=== PATIENT | female | born 1960 | race African-American/Black ===

== ENCOUNTER 2020-12-29 05:11 | Inpatient (IN) | payer OTHER ==
--- OUTSIDE RECORDS SUMMARY | 2020-12-29 05:13 | XMS REPORT | Continuity of Care Document ---
:1960 Author Organization [facility] t Address [address] [place] [address] Care Team Providers Name Role Phone Roberta HUGHES Primary Care Physician Reza HUGHES, Yoshi Attending Clinician Brian Olmos MD Attending Clinician Fidencio PENA Attending Clinician Shelby HUGHES Attending Clinician Doctor Unassigned, Name Attending Clinician Unavailable Only, Test Attending Clinician Unavailable Chidi Hollis Attending Clinician Brian Olmos MD Admitting Clinician Problems Condition Condition Condition Status Onset Resolution Last Treating Co mments Source Name Details Category Date Date Treatment Clinician Date Morbid Problem Active 2019-01-25 Mem[facility] obesity 11:26:00 l (disorder) Morbid Herm tianna obesity (disorder) Active Problem 01/25/2019 [facility] Neck pain Problem Active 2019-01-25 Me moria (finding) 11:26:00 l Neck Bruce pain (finding) Active Problem 01/25/2019 [facility] Paresthesi Problem Active 2019-01-25 M emoria a 11:26:00 l (finding) [place] Paresthesi a (finding) Active Problem 01/25/2019 [facility] Shoulder Problem Active 2019-01-25 Mem oria pain 11:26:00 l (finding) Shoulder Her dotson pain (finding) Active Problem 01/25/2019 [facility] Diabetes Problem Active 2019-01-25 Mem oria mellitus 11:26:00 l (disorder) Diabetes He rmann mellitus (disorder) Active Problem 01/25/2019 [facility] Hypertensi Problem Active 2019-01-25 M emoria ve 11:26:00 l disorder, Bruce systemic Hypertensi arterial ve (disorder) disorder, systemic arterial (disorder) Active Problem 01/25/2019 [facility] Allergies, Adverse Reactions, Alerts Allergy Allergy Status Severity Reaction(s) Onset Inactive Treating Comm ents Source Name Type Date Date Clinician penicill penicill Active Memori a ins ins l [place] NO KNOWN Allergy Active [place] FOOD to da ALLERGIE substanc [facility] Social History Social Habit Start Date Stop Date Quantity Comments Source Sex Assigned At [birth year] [facility] ethodist 00:00:00 00:00:00 Smoking Status Start Date Stop Date Source Former Smoker Tomasa [facility] Social History [facility] Medications Ordered Filled Start Stop Current Ordering Indication Dosage Frequency Signature Comments Components Source Medication Medication Date Date Medication? Clinician (SIG) Name Name Euthyrox Euthyrox No Euthyrox [place] 125 mcg 125 mcg 125 mcg da tablet TAKE tablet TAKE tablet [facility] 1 TABLET BY 1 TABLET BY TAKE 1 al MOUTH ONCE MOUTH ONCE TABLET BY Health DAILY DAILY MOUTH ONCE Outreac DAILY h Program fluticasone fluticasone No fluticason [place] 100 100 e 100 da mcg-salmete mcg-salmete mcg-salmet [facility] rol 50 rol 50 mar 50 al mcg/dose mcg/dose mcg/dose Hea lth blistr blistr blistr Outreac powdr for powdr for powdr for h inhalation inhalation inhalation Program INHALE 1 INHALE 1 INHALE 1 PUFF BY PUFF BY PUFF BY MOUTH TWICE MOUTH TWICE MOUTH DAILY RINSE DAILY RINSE TWICE MOUTH WITH MOUTH WITH DAILY WATER AFTER WATER AFTER RINSE USE TO USE TO MOUTH WITH REDUCE REDUCE WATER AFTERTASTE AFTERTASTE AFTER USE AND AND TO REDUCE INCIDENCE INCIDENCE AFTERTASTE OF OF AND CANDIDIASIS CANDIDIASIS INCIDENCE . DO NOT . DO NOT OF SWALLOW SWALLOW CANDIDIASI S. DO NOT SWALLOW furosemide furosemide No furosemide [place] 20 mg 20 mg 20 mg da tablet TAKE tablet TAKE tablet [facility] 1 TABLET BY 1 TABLET BY TAKE 1 al MOUTH ONCE MOUTH ONCE TABLET BY Health DAILY DAILY MOUTH ONCE Outreac DAILY h Program furosemide furosemide No furosemide [place] 40 mg 40 mg 40 mg da tablet TAKE tablet TAKE tablet [facility] 1 TABLET BY 1 TABLET BY TAKE 1 al MOUTH TWICE MOUTH TWICE TABLET BY Health DAILY DAILY MOUTH Outreac TWICE h DAILY Program gabapentin gabapentin No gabapentin [place] 100 mg 100 mg 100 mg da capsule capsule capsule [facility] gabapentin gabapentin No gabapentin [place] 300 mg 300 mg 300 mg da capsule capsule capsule [facility] TAKE 1 TAKE 1 TAKE 1 al CAPSULE BY CAPSULE BY CAPSULE BY Health MOUTH THREE MOUTH THREE MOUTH Outreac TIMES DAILY TIMES DAILY THREE h TIMES Program DAILY losartan 50 losartan 50 No losartan [place] mg tablet mg tablet 50 mg da TAKE 1 TAKE 1 tablet [facility] TABLET BY TABLET BY TAKE 1 al MOUTH ONCE MOUTH ONCE TABLET BY Health DAILY DAILY MOUTH ONCE Outreac DAILY h Program Novolin N Novolin N No Novolin N [place] NPH U-100 NPH U-100 NPH U-100 da Insulin Insulin Insulin [facility] isophane isophane isophane al 100 unit/mL 100 unit/mL 100 H ealth subcutaneou subcutaneou unit/mL Outreac s susp s susp subcutaneo h INJECT 45 INJECT 45 us susp Pr ogram UNITS UNITS INJECT 45 SUBCUTANEOU SUBCUTANEOU UNITS SLY TWICE SLY TWICE SUBCUTANEO DAILY DAILY USLY TWICE DIRECTED DIRECTED DAILY DIRECTED Novolin R Novolin R No Novolin R [place] Regular Regular Regular da U-100 U-100 U-100 [facility] Insulin 100 Insulin 100 Insulin al unit/mL unit/mL 100 Health injection injection unit/mL Ou treac solution solution injection h INJECT 25 INJECT 25 solution P rogram 30 UNITS 30 UNITS INJECT 25 SUBCUTANEOU SUBCUTANEOU 30 UNITS SLY 3 TIMES SLY 3 TIMES SUBCUTANEO A DAY A DAY USLY 3 BEFORE BEFORE TIMES A MEALS MEALS DAY BEFORE MEALS pantoprazol pantoprazol No pantoprazo [place] e 40 mg e 40 mg le 40 mg da tablet,mark tablet,mark tablet,del [facility] yed release yed release ayed a l TAKE 1 TAKE 1 release Health TABLET BY TABLET BY TAKE 1 Out reac MOUTH ONCE MOUTH ONCE TABLET BY h DAILY DAILY MOUTH ONCE Program DAILY prednisolon prednisolon No prednisolo [place] e acetate 1 e acetate 1 ne acetate da % eye % eye 1 % eye [facility] drops,suspe drops,suspe drops,susp al nsion nsion ension Health INSTILL 1 INSTILL 1 INSTILL 1 Outreac DROP INTO DROP INTO DROP INTO h RIGHT EYE RIGHT EYE RIGHT EYE Program THREE TIMES THREE TIMES THREE DAILY DAILY TIMES DAILY rosuvastati rosuvastati No rosuvastat [place] n 10 mg n 10 mg in 10 mg da tablet TAKE tablet TAKE tablet [facility] 1 TABLET BY 1 TABLET BY TAKE 1 al MOUTH ONCE MOUTH ONCE TABLET BY Health DAILY DAILY MOUTH ONCE Outreac DAILY h Program spironolact spironolact No spironolac [place] one 25 mg one 25 mg tone 25 mg da tablet TAKE tablet TAKE tablet [facility] 1 TABLET BY 1 TABLET BY TAKE 1 al MOUTH ONCE MOUTH ONCE TABLET BY Health DAILY DAILY MOUTH ONCE Outreac DAILY h Program Trelegy Trelegy No Trelegy [place] [facility] Ellipta 200 Ellipta 200 Ellipta da mcg-62.5 mcg-62.5 200 [facility] mcg-25 mcg mcg-25 mcg mcg-62.5 al powder for powder for mcg-25 mcg Health inhalation inhalation powder for Outreac INHALE 1 INHALE 1 inhalation h PUFF BY PUFF BY INHALE 1 Progr am MOUTH ONCE MOUTH ONCE PUFF BY DAILY FOR DAILY FOR MOUTH ONCE 30 DAYS 30 DAYS DAILY FOR 30 DAYS Trulicity Trulicity No Trulicity [place] 1.5 mg/0.5 1.5 mg/0.5 1.5 mg/0.5 da mL mL mL [facility] subcutaneou subcutaneou subcutaneo al s pen s pen [facility] injector injector injector Out reac 0.5 ML ONCE 0.5 ML ONCE 0.5 ML h A WEEK A WEEK ONCE A Program SUBCUTANEOU SUBCUTANEOU WEEK S FOR 30 S FOR 30 SUBCUTANEO DAYS DAYS US FOR 30 DAYS valganciclo valganciclo No valgancicl [place] vir 450 mg vir 450 mg ovir 450 da tablet tablet mg tablet [facility] Ventolin Ventolin No Ventolin [facility] HFA 90 HFA 90 HFA 90 da mcg/actuati mcg/actuati mcg/actuat [facility] on aerosol on aerosol ion al inhaler inhaler aerosol Health INHALE 2 INHALE 2 inhaler Outr eac PUFFS BY PUFFS BY INHALE 2 h MOUTH EVERY MOUTH EVERY PUFFS BY Program 4 TO 6 4 TO 6 MOUTH HOURS HOURS EVERY 4 TO NEEDED NEEDED 6 HOURS NEEDED carvedilol carvedilol No carvedilol [place] 6.25 mg 6.25 mg 6.25 mg da tablet TAKE tablet TAKE tablet [facility] 1 TABLET BY 1 TABLET BY TAKE 1 al MOUTH TWICE MOUTH TWICE TABLET BY Health DAILY WITH DAILY WITH MOUTH Ou treac MEALS MEALS TWICE h DAILY WITH Program MEALS escitalopra escitalopra No escitalopr [place] m 10 mg m 10 mg am 10 mg da tablet TAKE tablet TAKE tablet [facility] 1 TABLET BY 1 TABLET BY TAKE 1 al MOUTH ONCE MOUTH ONCE TABLET BY Health DAILY DAILY MOUTH ONCE Outreac DAILY h Program Vital Signs Vital Name Observation Time Observation Value Comments Source BP Diastolic 2020-12-07 00:00:00 95 mm[Hg] [facility] Height 2020-12-07 00:00:00 62 [in_i] [facility] BMI (Body Mass 2020-12-07 00:00:00 53.4 kg/m2 [place] jboss architect [facility] Index) Health Outreach Program BP Systolic 2020-12-07 00:00:00 169 mm[Hg] [facility] Body Weight 2020-12-07 00:00:00 292 [lb_av] [facility] Procedures Procedure Date / Time Performing Clinician Source Performed MAMMO, screening, 2020-12-07 00:00:00 Tomasa [facility] digital, bilateral Health Outrea Program section Gary Gongora n Thyroidectomy [facility] Varicose phlebectomy [facility] Plan of Care Planned Activity Planned Date Details Comments Source Future Scheduled 2021-03-20 INFLUENZA VACCINE [place] [facility] 00:00:00 [code = INFLUENZA VACCINE] Diagnostic Test 2020-12-07 bacterial vaginosis [place] Pending 00:00:00 panel, vaginal [code [facility] = bacterial vaginosis Outrea Program panel, vaginal] Diagnostic Test 2020-12-07 pap, IG + HPV, [place] Pending 00:00:00 cervical [code = pap, [facility] IG + HPV, cervical] Outreach Program Future Scheduled 2008 BREAST CANCER [facility] thodist Test 00:00:00 SCREENING [code = BREAST CANCER SCREENING] Future Scheduled 2008 COLONOSCOPY SCREENING [place] [facility] Test 00:00:00 [code = COLONOSCOPY SCREENING] Future Scheduled 2008 SHINGLES VACCINES [place] [facility] 00:00:00 (#1) [code = SHINGLES VACCINES (#1)] Future Scheduled 1979 Screening for [facility]odist Test 00:00:00 malignant neoplasm of cervix (procedure) [code = 142897813] Future Scheduled 1974 COVID-19 VACCINE (1) Shanell ston [facility] 00:00:00 [code = COVID-19 VACCINE (1)] Encounters Start End Encounter Admission Attending Care Care Encounter Source Date/Time Date/Time Type Type Clinicians Facility Department ID 2020-12-07 2020-12-07 Teofilo [facility] [id number] M [facility] 00:00:00 00:00:00 Kendell Henning MD: [facility] [address] [facility] CARLITOS [place], [place] [employer] [facility] [id number] h , Ph. Program 2020-10-07 2020-10-08 Emergency [facility] [id number] 21:06:00 03:35:00 Calli Case [id number] [place] [id number] [place] [id number] 2020-10-07 2020-10-07 Emergency [facility] [id number] 01:01:00 06:15:00 Calli Case [id number] [place] [id number] [place] [id number] 2020-09-30 2020-09-30 [facility] [id number] 07:01:00 09:00:00 Encounter Addi Manpreet [id number] Brian Gabriel [id number] Surgical [id number] [place] 071 2020-09-30 2020-09-30 Anesthesia Eliazar Nicolas [facility] [id number] 07:53:00 08:23:00 ShelbyMichael caballero [id number] [place] [id number] Surgical [id number] [place] 020 2020-09-30 2020-09-30 Orders Doctor ROBERT [id number] 00:00:00 00:00:00 Only Unassigned, ELIESER [id number] [place] [facility] [id number] 2020-09-29 2020-09-29 Laboratory Only, [facility] [id number] 09:40:08 09:55:08 Only Test Manpreet [id number] [place] [id number] [place] [id number] 2018-07-08 2018-07-08 Outpatient KARL Hollis [id number] 10:00:00 10:00:00 Raz Murillo Results This patient has no known results.
[2020-12-29 06:20] LABS: Absolute Lymphocytes (CBC) 2.3 K/uL (0.7-4.9); Basophils % 2.4 % (0-1.3); Hematocrit 45.6 % (36.0-45.0); MPV 9.5 fL (7.6-11.3); RBC Red Blood Cell Count 5.21 M/uL (3.86-4.86)
[2020-12-29 06:21] LABS: Protime INR 0.99
[2020-12-29 06:32] LABS: ALT/SGPT 20 U/L (12-78); AST/SGOT 14 U/L (15-37); Albumin 2.6 g/dL (3.4-5.0); Alkaline Phosphatase 67 U/L (45-117); BUN Blood Urea Nitrogen 34 mg/dL (7-18); Bicarbonate 31 mmol/L (21-32); Bilirubin Direct 0.1 mg/dL (0-0.2); Bilirubin Total 0.4 mg/dL (0.2-1.0); Glucose Level 114 mg/dL (74-106); Magnesium 2.4 mg/dL (1.8-2.4); NT PRO-BNP 543 pg/mL (<125); Potassium 4.7 mmol/L (3.5-5.1); Protein, Total 6.9 g/dL (6.4-8.2); Sodium Level 139 mmol/L (136-145); Troponin (Emerg Dept Use Only) < 0.02 ng/mL (0.0-0.045)
[2020-12-29] MEDS ORDERED: HYDRALAZINE HCL 20 MG/ML VIAL ONE (06:36)
[2020-12-29] MEDS ORDERED: ONDANSETRON 4 MG/2 ML VIAL ONE (06:36)
[2020-12-29] MEDS ORDERED: MORPHINE 4 MG/ML SYR ONE (06:36)
--- NOTE | 2020-12-29 06:58 | ER ---
Nurse's Notes [facility] Name: Caprice Mojica Age: 60 yrs Sex: Female : 1960 Arrival Date: 12/29/2020 Time: 05:16 Bed 17 Private MD: Diagnosis: Chest pain, unspecified;Angina pectoris, unspecified Presentation: 12/29 05:31 Chief complaint: Patient states: had a sleep study done last night, her BP was high iw before the study and the this morning when she woke up it was still high , 225/97 , also has been feeling bad with a headache and been having chest pressure for a while, she took her BP medicine last night. Coronavirus screen: At this time, the client does not indicate any symptoms associated with coronavirus-19. Ebola Screen: Patient negative for fever greater than or equal to 101.5 degrees Fahrenheit, and additional compatible Ebola Virus Disease symptoms Patient denies exposure to infectious person. Patient denies travel to an Ebola-affected area in the 21 days before illness onset. No symptoms or risks identified at this time. Initial Sepsis Screen: Does the patient meet any 2 criteria? No. Patient's initial sepsis screen is negative. Does the patient have a suspected source of infection? No. Patient's initial sepsis screen is negative. Risk Assessment: Do you want to hurt yourself or someone else? Patient reports no desire to harm self or others. Onset of symptoms was December 29, 2020. 05:31 Method Of Arrival: Wheelchair iw 05:31 Acuity: HERLINDA 3 iw Historical: - Allergies: 05:40 PENICILLINS; iw - Home Meds: 05:40 carvedilol 6.25 mg oral tab 2 times per day [Active]; spironolactone 25 mg oral tab iw once daily [Active]; Novolin R Sub-Q [Active]; trelegy [Active]; fluconazole 100 mg Oral tab 1 tab once daily [Active]; Estrace Oral [Active]; losartan 50 mg oral tab 1 tab once daily [Active]; furosemide 40 mg Oral tab 1 tab once daily [Active]; rosuvastatin 10 mg oral tab 1 tab once daily [Active]; Trulicity 1.5 mg/0.5 mL subcutaneous pnij 0.5 mL once wkly [Active]; Durezol 0.05 % ophthalmic drop 1 drop 4 times per day [Active]; Prolensa 0.07 % ophthalmic drop 1 drop once daily [Active]; - PMHx: 05:40 Hypertension; Diabetes - IDDM; Hyperlipidemia; iw - PSHx: 05:40 Hysterectomy; Thyroidectomy; iw - Immunization history:: Adult Immunizations up to date, Client reports receiving the 2nd dose of the Covid vaccine. - Social history:: Smoking status: Patient denies any tobacco usage or history of. Screenin:00 Abuse screen: Denies threats or abuse. Denies injuries from another. Nutritional jm8 screening: No deficits noted. Tuberculosis screening: No symptoms or risk factors identified. Fall Risk None identified. Assessment: 05:56 General: Appears in no apparent distress. comfortable, Behavior is calm, cooperative, jm8 appropriate for age. 05:58 Pain: Complains of pain in chest Pain currently is 6 out of 10 on a pain scale. Quality jm8 of pain is described as pressure, Also complains of no other associated symptoms. Neuro: No deficits noted. Level of Consciousness is awake, alert, obeys commands, Oriented to person, place, time. Cardiovascular: No deficits noted. Reports chest pain, hypertension Capillary refill < 3 seconds Pulses Rhythm is sinus rhythm with 1st degree heart block Chest pain is described as diffuse, Pain is 6 out of 10 on a pain scale. Respiratory: No deficits noted. Airway is patent Trachea midline Respiratory effort is even, unlabored. GI: No deficits noted. GI: No signs and/or symptoms were reported involving the gastrointestinal system. : No deficits noted. : No signs and/or symptoms were reported regarding the genitourinary system. EENT: No deficits noted. No signs and/or symptoms were reported regarding the EENT system. Derm: No deficits noted. No signs and/or symptoms reported regarding the dermatologic system. Skin is intact, is healthy with good turgor, Skin is dry, Skin is pink, warm \T\ dry. Skin temperature is warm. Musculoskeletal: No deficits noted. Vital Signs: 05:31 BP 180 / 89; Pulse 62; Resp 16; Temp 97.6; Pulse Ox 100% on R/A; Weight 132.45 kg; iw Height 5 ft. 2 in. (157.48 cm); 05:31 Body Mass Index 53.41 (132.45 kg, 157.48 cm) ED Course: 05:16 Patient arrived in ED. am4 05:33 Triage completed. iw 05:46 Kalen Blandon MD is Attending Physician. tw4 06:00 Arm band placed on right wrist. jm8 06:01 Patient has correct armband on for positive identification. Bed in low position. Call jm8 light in reach. Side rails up X2. 06:02 Inserted saline lock: 20 gauge in left antecubital area, using aseptic technique. jm8 06:13 XRAY Chest (1 view) In Process Unspecified. EDMS 06:58 Naeem Hirsch MD is Hospitalizing Provider. tw4 07:19 Megha Wilkerson, ELBERT is Primary Nurse. tr6 10:11 No provider procedures requiring assistance completed. Patient admitted, IV remains in tr6 place. Administered Medications: 06:17 Drug: hydrALAZINE 10 mg Route: IV; Rate: bolus; Site: left antecubital; jm8 06:17 Drug: morphine 4 mg Route: IVP; Site: left antecubital; jm8 06:17 Drug: Zofran (Ondansetron) 4 mg Route: IVP; Site: left antecubital; jm8 Outcome: 06:57 Discharge ordered by . tw4 06:58 Decision to Hospitalize by Provider. tw4 10:11 Admitted to Tele [facility], room 225, with chart, Report tr6 called to misa 10:11 Condition: good 10:11 Instructed on the need for admit. 10:12 Patient left the ED. tr6 Signatures: Dispatcher [employer] Sharla Cyr, ELBERT BOSWELL iw Kalen Blandon MD MD 4 Lyric Rodriguez Paul Pierre RN RN 8 Megha Wilkerson, ELBERT RN tr6 Corrections: (The following items were deleted from the chart) 05:35 05:31 BP 159 / 102; Pulse 62bpm; Resp 16bpm; Pulse Ox 100% RA; Temp 97.6F; 132.45 kg; iw Height 5 ft. 2 in.; BMI: 53.4; iw
--- NOTE | 2020-12-29 06:58 | EDPHYS ---
Physician Documentation [facility] Name: Caprice Mojica Age: 60 yrs Sex: Female : 1960 Arrival Date: 12/29/2020 Time: 05:16 Bed 17 Private MD: ED Physician Kalen Blandon HPI: 12/29 06:11 This 60 yrs old Black Female presents to ER via Wheelchair with complaints of High tw4 Blood Pressure. 06:11 The patient has elevated blood pressure and discovered this at home. Onset: The tw4 symptoms/episode began/occurred just prior to arrival. Modifying factors: The symptoms are aggravated by. Associated signs and symptoms: Pertinent positives: chest pain. The patient has not experienced similar symptoms in the past. Historical: - Allergies: 05:40 PENICILLINS; iw - Home Meds: 05:40 carvedilol 6.25 mg oral tab 2 times per day [Active]; spironolactone 25 mg oral tab iw once daily [Active]; Novolin R Sub-Q [Active]; trelegy [Active]; fluconazole 100 mg Oral tab 1 tab once daily [Active]; Estrace Oral [Active]; losartan 50 mg oral tab 1 tab once daily [Active]; furosemide 40 mg Oral tab 1 tab once daily [Active]; rosuvastatin 10 mg oral tab 1 tab once daily [Active]; Trulicity 1.5 mg/0.5 mL subcutaneous pnij 0.5 mL once wkly [Active]; Durezol 0.05 % ophthalmic drop 1 drop 4 times per day [Active]; Prolensa 0.07 % ophthalmic drop 1 drop once daily [Active]; - PMHx: 05:40 Hypertension; Diabetes - IDDM; Hyperlipidemia; iw - PSHx: 05:40 Hysterectomy; Thyroidectomy; iw - Immunization history:: Adult Immunizations up to date, Client reports receiving the 2nd dose of the Covid vaccine. - Social history:: Smoking status: Patient denies any tobacco usage or history of. ROS: 06:11 Constitutional: Negative for fever, chills, and weight loss, Eyes: Negative for injury, tw4 pain, redness, and discharge, Respiratory: Negative for shortness of breath, cough, wheezing, and pleuritic chest pain, Abdomen/GI: Negative for abdominal pain, nausea, vomiting, diarrhea, and constipation, Back: Negative for injury and pain. 06:11 MS/Extremity: Negative for injury and deformity, Skin: Negative for injury, rash, and discoloration, Neuro: Negative for headache, weakness, numbness, tingling, and seizure. 06:11 Cardiovascular: Positive for chest pain, Negative for edema, orthopnea, palpitations. Exam: 06:11 Constitutional: This is a well developed, well nourished patient who is awake, alert, tw4 and in no acute distress. Head/Face: Normocephalic, atraumatic. Chest/axilla: Normal chest wall appearance and motion. Nontender with no deformity. No lesions are appreciated. Cardiovascular: Regular rate and rhythm with a normal S1 and S2. No gallops, murmurs, or rubs. Normal PMI, no JVD. No pulse deficits. Respiratory: Lungs have equal breath sounds bilaterally, clear to auscultation and percussion. No rales, rhonchi or wheezes noted. No increased work of breathing, no retractions or nasal flaring. Abdomen/GI: Soft, non-tender, with normal bowel sounds. No distension or tympany. No guarding or rebound. No evidence of tenderness throughout. Back: No spinal tenderness. No costovertebral tenderness. Full range of motion. MS/ Extremity: Pulses equal, no cyanosis. Neurovascular intact. Full, normal range of motion. Neuro: Awake and alert, GCS 15, oriented to person, place, time, and situation. Cranial nerves II-XII grossly intact. Motor strength 5/5 in all extremities. Sensory grossly intact. Cerebellar exam normal. Normal gait. Vital Signs: 05:31 BP 180 / 89; Pulse 62; Resp 16; Temp 97.6; Pulse Ox 100% on R/A; Weight 132.45 kg; iw Height 5 ft. 2 in. (157.48 cm); 05:31 Body Mass Index 53.41 (132.45 kg, 157.48 cm) iw MDM: 06:37 Patient medically screened. tw4 05 05:45 Order name: Basic Metabolic Panel; Complete Time: 06:37 iw 12/29 06:38 Interpretation: Normal except: GLUC 114; GFR 49; CRE 1.32; BUN 34. tw4 12/29 05:45 Order name: CBC with Diff; Complete Time: 06:37 iw 12/29 06:38 Interpretation: Normal except: RBC 5.21; HCT 45.6; RDW 17.3. 4 12/29 05:45 Order name: LFT's; Complete Time: 06:37 iw 12/29 06:38 Interpretation: Normal except: AST 14; A/G 0.6; GLOB 4.3; ALB 2.6. 4 12/29 05:45 Order name: Magnesium; Complete Time: 06:38 iw 12/29 06:38 Interpretation: Within normal limits: MG 2.4. 12/29 05:45 Order name: NT PRO-BNP; Complete Time: 06:38 iw 12/29 06:38 Interpretation: Normal except: NT PRO-BNP 543. 12/29 05:45 Order name: PT-INR; Complete Time: 06:38 iw 12/29 06:38 Interpretation: Within normal limits: PT 11.4. 12/29 05:45 Order name: Troponin (emerg Dept Use Only); Complete Time: 06:38 12/29 06:38 Interpretation: Within normal limits: TROPED < 0.02. 12/29 05:45 Order name: XRAY Chest (1 view) 12/29 07:13 Order name: COVID-19 : Document "Date of Symptom Onset" if Symptomatic. bd 12/29 07:14 Order name: CORONAVIRUS EDSD 12/29 09:17 Order name: SARS-COV-2 RT PCR EDSD 12/29 09:24 Order name: T4 Free EDSD 12/29 09:24 Order name: Thyroid Stimulating Hormone EDSD 12/29 05:45 Order name: EKG; Complete Time: 05:45 12/29 05:45 Order name: Cardiac monitoring; Complete Time: 06:02 12/29 05:45 Order name: EKG - Nurse/Tech; Complete Time: 06:02 12/29 05:45 Order name: IV Saline Lock; Complete Time: 06:02 12/29 05:45 Order name: Labs collected and sent; Complete Time: 06:02 12/29 05:45 Order name: O2 Per Protocol; Complete Time: 06:02 12/29 05:45 Order name: O2 Sat Monitoring; Complete Time: 06:02 12/29 07:28 Order name: CONS Physician Consult EDSD EC:11 Rate is 61 beats/min. Rhythm is regular. QRS [place] is Normal. SC interval is prolonged. tw4 QRS interval is normal. QT interval is normal. No Q waves. T waves are Normal. No ST changes noted. Clinical impression: 1st degree heart block. Interpreted by me. Reviewed by me. Administered Medications: 06:17 Drug: hydrALAZINE 10 mg Route: IV; Rate: bolus; Site: left antecubital; 8 06:17 Drug: morphine 4 mg Route: IVP; Site: left antecubital; 8 06:17 Drug: Zofran (Ondansetron) 4 mg Route: IVP; Site: left antecubital; 8 Disposition: 12/29/20 06:58 Hospitalization ordered by Naeem Hirsch for Observation. Preliminary diagnosis are Chest pain, unspecified, Angina pectoris, unspecified. - Bed requested for Telemetry/MedSurg (observation). - Status is Observation. tr6 - Condition is Stable. - Problem is new. - Symptoms have improved. Signatures: Dispatcher [employer] EDSD Leola Bashir RN RN dw Sharla Murphy RN RN iw Wadley, Terrence, MD MD tw4 Paul Gibson RN RN [id number] Megha Wilkerson RN RN tr6 Corrections: (The following items were deleted from the chart) 06:58 06:57 12/29/2020 06:57 Discharged to Home. Impression: Chest pain, unspecified. tw4 Condition is Stable. Forms are Medication Reconciliation Form, Thank You Letter, Antibiotic Education, Prescription Opioid Use. Follow up: Private Physician; When: Upon discharge from the Emergency Department; Reason: Recheck today's complaints, Continuance of care, Re-evaluation by your physician. Problem is new. Symptoms have improved. tw4 09:33 06:58 Hospitalization Ordered by Naeem Hirsch MD for Observation. Preliminary dw diagnosis is Chest pain, unspecified; Angina pectoris, unspecified. Bed requested for Telemetry/MedSurg (observation). Status is Observation. Condition is Stable. Problem is new. Symptoms have improved. tw4 10:12 09:33 12/29/2020 06:58 Hospitalization Ordered by Naeem Hirsch MD for Observation. tr6 Preliminary diagnosis is Chest pain, unspecified; Angina pectoris, unspecified. Bed requested for Telemetry/MedSurg (observation). Status is Observation. Condition is Stable. Problem is new. Symptoms have improved. dw
[2020-12-29] MEDS: INSULIN -REGULAR HUMAN 50 UNIT/0.5 ML ML SQ SCH ×4 (08:32→21:00)
--- NOTE | 2020-12-29 08:40 | RAD REPORT ---
EXAM DESCRIPTION: RAD - Chest Single View - 12/29/2020 6:13 am CLINICAL HISTORY: CHEST PAIN Chest pain. COMPARISON: No comparisons FINDINGS: Portable technique limits examination quality. The lungs are grossly clear. The heart is mildly prominent. No displaced fractures.
[2020-12-29 09:23] LABS: Thyroid Stimulating Hormone 5.52 uIU/mL (0.360-3.740)
[2020-12-29] MEDS ORDERED: ACETAMINOPHEN 325 MG TABLET ONE (09:31)
[2020-12-29] MEDS ORDERED: ACETAMINOPHEN 500 MG TAB PO PRN (10:02)
[2020-12-29] MEDS ORDERED: ONDANSETRON 4 MG/2 ML VIAL IV PRN (10:07)
--- NOTE | 2020-12-29 10:13 | P.HP ---
Certification for Inpatient With expected LOS: >2 Midnights Patient will require the following post-hospital care: None Practitioner: I am a practitioner with admitting privileges, knowledge of patient current condition, hospital course, and medical plan of care. Services: Services provided to patient in accordance with Admission requirements found in Title 42 Section 412.3 of the Code of Federal Regulations Patient History Date of Service: 12/29/20 Reason for admission: Chest pain History of Present Illness: Patient is a 60-year-old female with a past medical history significant for hyperlipidemia, DM 2, hypothyroidism, hypertension who presents with complaint of chest pain onset this morning when she woke up. Patient reported that he had sleep studies yesterday. Patient reported that she has been having elevated blood pressure for quite some time now and her technical adjuster had adjusted her BP meds but blood pressure remains high. Patient stated that chest pain is located in the substernal chest area and radiates to the right chest wall. Patient rated pain as 10\10 and described pain as pressure in quality. Patient reports associated signs and symptoms of dizziness, headache, RLE edema and shortness of breath. Patient denies any other s\s. Symptoms are aggravated or relieved by nothing. Patient decided present to the hospital for medical evaluation. Allergies Penicillins Allergy (Unknown, Verified 12/29/20 08:32) Anaphylaxis Home medications list reviewed: Yes Home Medications: Dulaglutide [Trulicity] 0.5 ml SQ SEECOM 12/29/20 Escitalopram [Lexapro*] 10 mg PO DAILY 12/29/20 Fluticasone/Umeclidin/Vilanter [Trelegy Ellipta 200-62.5-25] 1 puff IH DAILY 12/29/20 Furosemide [Lasix*] 1 tab PO DAILY PRN 12/29/20 Insulin -Regular Human [Novolin -R*] 25 units SQ ACHS 12/29/20 Insulin NPH Human Isophane [Novolin N] 35 units SQ BID 12/29/20 Levothyroxine [Synthroid*] 1 tab PO [id number] 12/29/20 Losartan Potassium [Cozaar] 1 tab PO DAILY 12/29/20 Rosuvastatin [Crestor*] 1 tab PO BEDTIME 12/29/20 Spironolactone [Aldactone*] 1 tab PO BID 12/29/20 carvediloL [Carvedilol] 1 tab PO BIDWM 12/29/20 - Past Medical/Surgical History Has patient received pneumonia vaccine in the past: Yes - Social History Smoking Status: Never smoker CD- Drugs: No Place of Residence: Home Review of Systems General: Unremarkable Eyes: Unremarkable ENT: Unremarkable Respiratory: Shortness of Breath Cardiovascular: Chest Pain Gastrointestinal: Unremarkable Genitourinary: Unremarkable Musculoskeletal: Unremarkable Integumentary: Unremarkable Neurological: Other (Dizziness ) Lymphatics: Unremarkable Physical Examination - Physical Exam General: Alert, In no apparent distress, Oriented x3 HEENT: Atraumatic, PERRLA, Mucous membr. moist/pink, EOMI, Sclerae nonicteric Neck: Supple, 2+ carotid pulse no bruit, No LAD, Without JVD or thyroid abnormality Respiratory: Clear to auscultation bilaterally, Normal air movement Cardiovascular: Regular rate/rhythm, Normal S1 S2, Edema Capillary refill: <2 Seconds Gastrointestinal: Normal bowel sounds, No tenderness Musculoskeletal: No clubbing, No swelling, No tenderness Integumentary: No rashes, No significant lesion Neurological: Normal gait, Normal speech, Normal strength at 5/5 x4 extr, Normal tone, Normal affect Lymphatics: No axilla or inguinal lymphadenopathy - Studies Laboratory Data (last 24 hrs) 12/29/20 05:54: PT 11.4, INR 0.99 12/29/20 05:54: WBC 7.70, Hgb 14.8, Hct 45.6 H, Plt Count 193 12/29/20 05:54: Sodium 139, Potassium 4.7, BUN 34 H, Creatinine 1.32 H, Glucose 114 H, Magnesium 2.4, Total Bilirubin 0.4, AST 14 L, ALT 20, Alkaline Phosphatase 67 Assessment and Plan - Plan -Chest pain of unclear etiology. WIll trend troponin .Cardiology consulted. Telemetry. Echocardiogram pending. We will await further recommendations from Chef Concierge --DM 2. BS monitoring with sliding scale insulin --Hypertension. Poorly controlled. Continue home medications and hydralazine p.r.n.. --Headache. Tylenol p.r.n. --Hypothyroidism. Continue Synthroid. --Hyperlipidemia. Continue statin. --Right lower extremity edema. Echocardiogram pending. Chef Concierge on board. Continue home medication. Further management per technical adjuster --Class III obesity. Likely secondary to excess calories intake. Patient counselled on diet and exercise therapy. --DVT prophylaxis with heparin subQ Discharge Plan: Home Plan to discharge in: 48 Hours - Advance Directives Does patient have a Living Will: No Does patient have a Durable POA for Healthcare: No - Code Status/Comfort Care Code Status Assessed: Yes Code Status: Full Code
[2020-12-29 10:26] VITALS: BMI 52.4
--- NOTE | 2020-12-29 13:30 | ECHO ---
HEIGHT: 5 ft 2 in WEIGHT: 287 lb 0 oz DATE OF STUDY: 12/29/[address]: Shelby Mcdonald 2-DIMENSIONAL: YES M.MODE: YES DOPPLER: YES COLOR FLOW: YES TDS: NO PORTABLE: NO DEFINITY: NO BUBBLE STUDY: NO DIAGNOSIS: CHEST PAIN CARDIAC HISTORY: CATHERIZATION: NO SURGERY: NO PROSTHETIC VALVE: NO PACEMAKER: NO MEASUREMENTS (cm) DIASTOLIC (NORMALS) SYSTOLIC (NORMALS) IVSd 1.0 (0.6-1.2) LA Diam 4.0 (1.9-4.0) LVEF 69% LVIDd 4.1 (3.5-5.7) LVIDs 2.5 (2.0-3.5) %FS 39% LVPWd 1.3 (0.6-1.2) Ao Diam 2.9 (2.0-3.7) 2 DIMENSIONAL ASSESSMENT: RIGHT ATRIUM: NORMAL LEFT ATRIUM: NORMAL RIGHT VENTRICLE: NORMAL LEFT VENTRICLE: LEFT VENTRICULAR HYPERTROPHY TRICUSPID VALVE: NORMAL MITRAL VALVE: NORMAL PULMONIC VALVE: NORMAL AORTIC VALVE: NORMAL PERICARDIAL EFFUSION: NONE AORTIC ROOT: NORMAL LEFT VENTRICULAR WALL MOTION: NORMAL. DOPPLER/COLOR FLOW: NORMAL. COMMENTS: MILD CONCENTRIC LEFT VENTRICULAR HYPERTROPHY. NO WALL MOTION ABNORMALITY. NO MITRAL VALVE PROLAPSE. NO EFFUSION. TECHNOLOGIST: DENI RANDLE
[2020-12-29] MEDS: HYDRALAZINE HCL 20 MG/ML VIAL IV PRN (21:05)
[2020-12-29] MEDS: HYDROCODONE/APAP 5/325 MG TAB PO PRN (21:06)
[2020-12-30] MEDS: ACETAMINOPHEN 325 MG TABLET PO PRN ×2 (00:55→20:23)
[2020-12-30 06:23] LABS: Absolute Lymphocytes (CBC) 1.8 K/uL (0.7-4.9); Hematocrit 42.3 % (36.0-45.0); Lymphocytes % 28.9 % (15.3-44.8); MPV 9.7 fL (7.6-11.3); RBC Red Blood Cell Count 4.84 M/uL (3.86-4.86)
[2020-12-30 06:28] LABS: Protime INR 0.98
[2020-12-30] MEDS ORDERED: Dulaglutide [Trulicity] 1.5 MG/0.5 ML Pen.Injctr SQ SCH (06:30)
[2020-12-30 06:33] LABS: Potassium 4.7 mmol/L (3.5-5.1)
[2020-12-30] MEDS: INSULIN -REGULAR HUMAN 50 UNIT/0.5 ML ML SQ SCH ×4 (07:30→20:18)
[2020-12-30] MEDS: Fluticasone/Umeclidin/Vilanter [Trelegy Ellipta 200-62.5-25] IH SCH (07:48)
[2020-12-30] MEDS: ENOXAPARIN 40 MG/0.4 ML SQ SCH (07:54)
[2020-12-30] MEDS: carvediloL 6.25 MG TAB PO SCH ×2 (07:54→16:46)
[2020-12-30] MEDS: ESCITALOPRAM 20 MG TAB PO SCH (07:55)
[2020-12-30] MEDS: LOSARTAN POTASSIUM 50 MG TABLET PO SCH (07:56)
[2020-12-30] MEDS: ASPIRIN 81 MG CHEWABLE TABLET PO SCH (07:56)
[2020-12-30] MEDS: SPIRONOLACTONE 25 MG TABLET PO SCH ×2 (07:57→20:17)
[2020-12-30 08:08] LABS: Urine Appearance CLEAR (Clear); Urine Bilirubin NEGATIVE (Negataive); Urine Blood NEGATIVE (Negative); Urine Color YELLOW (Yellow); Urine Glucose 2+ (Negative); Urine Protein 3+ (Negative); Urine Specific Gravity 1.025 (1.005-1.030); Urine Urobilinogen 0.2 mg/dL (0.2-1.0); Urine pH 5.5 (5.0-7.0)
[2020-12-30 08:12] LABS: Urine Microscopic Reflex ORDER UMIC
[2020-12-30 08:33] LABS: Urine Bacteria 20-50 /HPF (<20); Urine RBC <5 /HPF (NONE SEEN)
--- NOTE | 2020-12-30 10:32 | RAD REPORT ---
EXAM DESCRIPTION: US - Extremity Venous Uni Ltd - 12/30/2020 10:27 am CLINICAL HISTORY: R/O DVTright leg pain and swelling COMPARISON: None. TECHNIQUE: Real-time sonographic evaluation of the right lower extremity deep venous systems was per formed. FINDINGS: Normal compressibility, flow augmentation, phasic flow and spontaneous flow are identified in the right lower extremity common femoral, superficial femoral, popliteal and posterior tibial vei ns. No intraluminal filling defects seen. IMPRESSION: No DVT in the right lower extremity.
[2020-12-30] MEDS: HYDRALAZINE HCL 20 MG/ML VIAL IV PRN (11:47)
[2020-12-30] MEDS: HYDROCODONE/APAP 5/325 MG TAB PO PRN (11:53)
--- NOTE | 2020-12-30 17:26 | P.PN ---
Subjective Date of Service: 12/30/20 Chief Complaint: Chest pain Subjective: Worsening (doesn't feel any better this morning, continues with chest pain with exertion and at rest at times. BP better this morning. troponin negative. reports had negative stress test ~2 weeks ago but had to stop jonas admill after 2-3 minutes due to dyspnea) Review of Systems 10-point ROS is otherwise unremarkable Physical Examination - Vital Signs Temperature: 97 F Blood Pressure: 163/101 Pulse: 62 Respirations: 18 Pulse Ox (%): 96 Assessment & Plan Physician Review Additional Text: Physical Exam Gen: NAD HEENT: normal conjunctiva, sclera anicteric Pulm: CTAB, no wheeze/rales, nonlabored on room air CV: regular rate/rhythm, no murmur Abd: soft, nontender Ext: no edema Neuro: normal affect, moves all extremities Problem List Chest pain, r/o ACS. Unstable angina DM2 HTN Hypothyroidism HLD R lower extremity edema Morbid obesity -trop negative, unable to complete recent exercise stress test -cardio consulted -plan for cardiac cath tomorrow, pt's symptoms concerning for cardiac etiology -continue home anti-hypertensives, likely difficult to control due to untreated sleep apnea, CPAP ordered for tonight -continue home medications - synthroid, statin, asa -echo pending Dispo: anticipate dc home, awaiting cath results tomorrow Time Spent Managing Pts Care (In Minutes): 35
--- NOTE | 2020-12-30 19:45 | CON ---
Date of Consultation: 12/30/2020 Reason For Consultation: Chest pain. History Of Present Illness: This is a 60-year-old female, obese, history of diabetes and hypertensio n, who presented with chest pain. Apparently, she had a stress test recently; however, she could not keep up with the treadmill and the stress test was terminated prematurely. She was placed on metopr olol and no cardiac catheterization was done; however, she has been having chest pain, pressure like, related to activities, radiates to the left upper extremity and has been more frequent. Past Medical History: As outlined above in the HPI. Medications: Refer to reconciliation sheet for detailed list. Allergies: PENICILLIN. Social History: Does not smoke or drink. Does not use any drugs. Family History: No premature coronary artery disease or cancer. Review of Systems: All systems reviewed and they were negative except for what is mentioned in the HPI. Physical Examination: Vital Signs: Temperature is 97.0, pulse 65, breathing 18, blood pressure 120/58, saturating 96%. General: A middle-aged female, morbidly obese, no apparent distress. Head and Neck: Pupils are equal, reactive to light. Intact eye movements. No JVD. No cervical lym phadenopathy. Neck: Supple. Thyroid is not enlarged. Lungs: Clear to auscultation bilaterally. No rhonchi, rales, or crackles. No accessory muscle use. Heart: Regular rate and rhythm. No extra sounds. Abdomen: Soft, nontender. Bowel sounds positive. No organomegaly. No masses or hernia. No rigidi ty or rebound. Extremities: No edema, clubbing, or cyanosis. Intact pulses. Skin: No rash noted. Neurologic: Alert, awake, oriented x3. No acute focal deficits appreciated. Investigations: Troponins are negative x3. LDL cholesterol is 148. Creatinine is 1.4. Assessment And Recommendations: Chest pain, suggestive of unstable angina. She has enough risk fact ors to proceed with further workup. I will recommend coronary angiogram as she could not do a treadm ill stress test and further recommendation based on the stress test findings. Meanwhile, continue as pirin and nitrates for chest pain. Thank you for the consult. /ANDERSON Voice ID: [id number] Report ID: [id number]
[2020-12-30] MEDS ORDERED: ROSUVASTATIN 10 MG TAB PO SCH (21:00)
[2020-12-31] MEDS ORDERED: LEVOTHYROXINE SOD 0.125 MG TAB PO SCH (06:00)
[2020-12-31 06:33] LABS: Magnesium 2.5 mg/dL (1.8-2.4); Potassium 4.8 mmol/L (3.5-5.1)
[2020-12-31] MEDS ORDERED: LIDOCAINE 1% 20 ML MDV ONE (07:02)
[2020-12-31] MEDS ORDERED: HEPA 1000U/500MLS 2,000 UNIT/1,000 ML BAG IV ONE (07:02)
[2020-12-31] MEDS: INSULIN -REGULAR HUMAN 50 UNIT/0.5 ML ML SQ SCH ×3 (07:30→16:30)
[2020-12-31] MEDS: carvediloL 6.25 MG TAB PO SCH ×3 (08:00→17:22)
[2020-12-31] MEDS: ENOXAPARIN 40 MG/0.4 ML SQ SCH (08:05)
[2020-12-31] MEDS ORDERED: NA CHLORIDE 0.9% 500 ML ONE (08:05)
[2020-12-31] MEDS ORDERED: HEPARIN 5000 UNIT/ML 1 ML VIAL ONE (08:13)
[2020-12-31] MEDS ORDERED: FENTANYL CITR 100 MCG/2 ML ONE (08:13)
[2020-12-31] MEDS ORDERED: MIDAZOLAM HCL 2 MG/2 ML INJ ONE (08:13)
[2020-12-31] MEDS ORDERED: VERAPAMIL HCL 10 MG/4 ML VIAL IV ONE (08:14)
[2020-12-31] MEDS ORDERED: HEPARIN 10,000 UNIT/10 ML VIAL IV ONE (08:14)
[2020-12-31] MEDS ORDERED: ATROPINE SULF 1 MG/10 ML SYR IV ONE (08:14)
[2020-12-31] MEDS ORDERED: HYDRALAZINE HCL 20 MG/ML VIAL ONE (08:22)
[2020-12-31] MEDS: ASPIRIN 81 MG CHEWABLE TABLET PO SCH ×2 (09:00→13:27)
[2020-12-31] MEDS: Fluticasone/Umeclidin/Vilanter [Trelegy Ellipta 200-62.5-25] IH SCH (09:00)
[2020-12-31] MEDS: ESCITALOPRAM 20 MG TAB PO SCH ×2 (09:00→13:27)
[2020-12-31] MEDS: SPIRONOLACTONE 25 MG TABLET PO SCH ×2 (09:00→13:27)
[2020-12-31] MEDS: LOSARTAN POTASSIUM 50 MG TABLET PO SCH ×2 (09:00→13:26)
--- NOTE | 2020-12-31 10:45 | OP ---
Date of Procedure: 12/31/2020 Surgeon: ANGELO CARRILLO Procedure Performed: Selective coronary angiogram. Indication: Unstable angina. Access: Right radial artery 6-Lux[place]bourg[place] closed with TR band. Complications: None. Bleeding: Less than 5 mL. Description Of Procedure: After risks, benefits and alternatives were explained, the patient agreed to the procedure and signed informed consent. The patient was brought into the cardiac catheterizati on laboratory, prepped and draped in usual sterile fashion. Then, we accessed right radial artery us ing a pediatric micropuncture kit, placed a 6-[place] Slender sheath and took a 5-[place] 4.0 cat heter into the aortic root, engaged left main and right coronary artery, then took standard views. C atheter was removed. Sheath was removed and TR band was applied with good hemostasis. Findings: 1.Left main; large, normal. 2.LAD; large and normal. 3.Left circumflex; large artery, normal. 4.RCA; large artery, dominant circulation, normal. Conclusion: Normal coronary arteries. Recommendations: Blood pressure control and medical management. /ANDERSON Voice ID: [id number] Report ID: [id number]
[2020-12-31 11:48] VITALS: O2SAT 98
[2020-12-31] MEDS: HYDROCODONE/APAP 5/325 MG TAB PO PRN (13:27)
--- NOTE | 2020-12-31 15:33 | P.DS ---
Admission Date: 12/31/20 Discharge Date: 12/31/20 Disposition: ROUTINE DISCHARGE Discharge Condition: GOOD Reason for Admission: Unstable Angina, Severe uncontrolled HTN Consultations: Cardiology - Dr. Rob Procedures: CXR (12/29): The lungs are grossly clear. The heart is mildly prominent. No displaced fractures. Venous U/S (12/30): No DVT in the right lower extremity. TTE (12/29): mild concentric LVH. no wall motion abnormality. no mitral valve prolapse. no effusion. EF: 69% Cardiac Cath (12/31): normal coronary arteries, by Dr. Rob Problem List Unstable angina Uncontrolled hypertension DM2, insulin dependent Hypothyroidism HLD R lower extremity edema Morbid obesity Brief History of Present Illness: 60-year-old female with a past medical history significant for hyperlipidemia, DM 2, hypothyroidism, hypertension who presents with complaint of chest pain onset this morning when she woke up. Patient reported that he had sleep studies yesterday. Patient reported that she has been having elevated blood pressure for quite some time now and her enamel burner had adjusted her BP meds but blood pressure remains high. Patient stated that chest pain is located in the substernal chest area and radiates to the right chest wall. Patient rated pain as 10\10 and described pain as pressure in quality. Patient reports associated signs and symptoms of dizziness, headache, RLE edema and shortness of breath. Patient denies any other s\s. Symptoms are aggravated or relieved by nothing. Patient decided present to the hospital for medical evaluation. Hospital Course: Patient's troponin were negative. She continued with chest pain. Cardiology was consulted. She reported recent stress test, however she had to stop after 2-3 minutes due to dyspnea/fatigue on treadmill. She was taken for cardiac cathet erization which revealed normal coronary arteries. Patient felt better afterwards. Uncontrolled/resistant HTN - patient responded well to IV hydralazine. On further discussion she reported multiple BP readings >200/100 at home over the last 1-2 months. She has been trialed on different anti-hypertensives. -she is discharged to increase carvedilol to 12.5mg, and new prescription for hydralazine PO. She responded well to IV hydralazine during her hospitalization. -advised to maintain BP diary and f/u with PCP for further management. -untreated obstructive sleep apnea is likely contributing. Dr. Yeboah aware and awaiting results from sleep study to order CPAP. Her Cr at time of discharge was 1.5, and she was advised to f/u with her PCP to repeat BMP in the next 1-2 weeks to monitor. Patient reported she was told she had some level of CKD. RLE edema - evaluated by venous U/S which was negative for DVT. Vital Signs/Physical Exam: Physical Exam Gen: NAD HEENT: normal conjunctiva, sclera anicteric Pulm: CTAB, no wheeze/rales, nonlabored on room air CV: regular rate/rhythm, no murmur Abd: soft, nontender Ext: no edema Neuro: normal affect, moves all extremities Temp Pulse Resp BP Pulse Ox 97.8 F 88 18 128/63 98 12/31/20 14:33 12/31/20 14:33 12/31/20 14:33 12/31/20 14:33 12/31/20 14:27 Laboratory Data at Discharge: WBC 6.20 K/uL (4.3-10.9) D 12/30/20 06:00 Hgb 13.8 g/dL (12.0-15.0) 12/30/20 06:00 Hct 42.3 % (36.0-45.0) 12/30/20 06:00 Plt Count 177 K/uL (152-406) 12/30/20 06:00 PT 11.3 SECONDS (9.5-12.5) 12/30/20 06:00 INR 0.98 12/30/20 06:00 Sodium 137 mmol/L (136-145) 12/31/20 06:12 Potassium 4.8 mmol/L (3.5-5.1) 12/31/20 06:12 BUN 34 mg/dL (7-18) H 12/31/20 06:12 Creatinine 1.55 mg/dL (0.55-1.3) H 12/31/20 06:12 Glucose 186 mg/dL (74-106) H 12/31/20 06:12 Magnesium 2.5 mg/dL (1.8-2.4) H 12/31/20 06:12 Total Bilirubin 0.4 mg/dL (0.2-1.0) 12/29/20 05:54 AST 14 U/L (15-37) L 12/29/20 05:54 ALT 20 U/L (12-78) 12/29/20 05:54 Alkaline Phosphatase 67 U/L (45-117) 12/29/20 05:54 Troponin I < 0.02 ng/mL (0.0-0.045) 12/29/20 19:39 Triglycerides 147 mg/dL (<150) 12/29/20 05:54 Cholesterol 249 mg/dL (<200) H 12/29/20 05:54 HDL Cholesterol 72 mg/dL (40-60) H 12/29/20 05:54 Cholesterol/HDL Ratio 3.46 12/29/20 05:54 Home Medications: Dulaglutide [Trulicity] 0.5 ml SQ SEECOM 12/29/20 Escitalopram [Lexapro*] 10 mg PO DAILY 12/29/20 Fluticasone/Umeclidin/Vilanter [Trelegy Ellipta 200-62.5-25] 1 puff IH DAILY 12/29/20 Furosemide [Lasix*] 1 tab PO DAILY PRN 12/29/20 Insulin -Regular Human [Novolin -R*] 25 units SQ ACHS 12/29/20 Insulin NPH Human Isophane [Novolin N] 35 units SQ BID 12/29/20 Levothyroxine [Synthroid*] 1 tab PO [id number] 12/29/20 Losartan Potassium [Cozaar] 50 mg PO DAILY 12/29/20 Rosuvastatin [Crestor*] 1 tab PO BEDTIME 12/29/20 Spironolactone [Aldactone*] 1 tab PO BID 12/29/20 Carvedilol [Coreg] 12.5 mg PO BID 30 Days #60 tablet 12/31/20 Hydralazine HCl 25 mg PO Q8HR 30 Days #90 tablet 12/31/20 New Medications: Hydralazine HCl 25 mg PO Q8HR 30 Days #90 tablet Carvedilol [Coreg] 12.5 mg PO BID 30 Days #60 tablet Physician Discharge Instructions: PROBLEM: Chest pain, severe hypertension GOAL: Clear understanding of disease process INSTRUCTIONS: Diet: diabetic Activity: As tolerated Your chest pain was evaluated by troponin and cardiac cath - which were all normal. You were found to have severe high blood pressure which improved with Hydralazine. You are discharged with new prescriptions for Hydralazine - three times a day, and increase your carvedilol to 12.5mg twice a day. Keep a blood pressure diary so that your PCP can make further adjustments. Please follow up with your PCP in 3-5 days. Please follow up with your [facility] Laboratory Assistant in the next few weeks. Diet: ADA Activity: Ad itz Followup: Du Yeboah MD [Primary Care Provider] - Tha Morelos MD [ACTIVE - CAN ADMIT] - Time spent managing pt's care (in minutes): 40
[2020-12-31] MEDS ORDERED: HYDRALAZINE HCL 25 MG TABLET PO ONE (16:00)
[2020-12-31 17:02] VITALS: BP 184/77; TEMP 97.2
== END 2020-12-31 17:52 | disposition home or self-care (01) | DRG 287 ==
LOC: ER 05:11 → ERHOLD 07:27 → 2ND 09:50 → OBSVTOIN 12-31 14:34
PROVIDERS: ADMIT Hospitalist; ATTEND Hospitalist
PROC: 4A023N7 Measurement of Cardiac Sampling and Pressure, Left Heart, Percutaneous Approach (ICD-10-PCS; principal; 2020-12-31)
PROC: B2111ZZ Fluoroscopy of Multiple Coronary Arteries using Low Osmolar Contrast (ICD-10-PCS; 2020-12-31)
PROC: 5A09457 Assistance with Respiratory Ventilation, 24-96 Consecutive Hours, Continuous Positive Airway Pressure (ICD-10-PCS; 2020-12-31)
DX: I20.0 Unstable angina (principal); Z68.43 Body mass index [BMI] 50.0-59.9, adult; E66.01 Morbid (severe) obesity due to excess calories; I10 Essential (primary) hypertension; E03.9 Hypothyroidism, unspecified; E78.5 Hyperlipidemia, unspecified; E11.9 Type 2 diabetes mellitus without complications; R60.9 Edema, unspecified; R51.9 Headache, unspecified; Z88.0 Allergy status to penicillin; Z79.4 Long term (current) use of insulin; Z79.899 Other long term (current) drug therapy; Z90.710 Acquired absence of both cervix and uterus; Z79.890 Hormone replacement therapy; Z71.3 Dietary counseling and surveillance; Z20.822 Contact with and (suspected) exposure to COVID-19
CPT/HCPCS: 36415; 71045; 80048; 80061; 80076; 81003; 81015; 82947; 83036; 83735; 83880; 84439; 84443; 84484; 85025; 85610; 87086; 87088; 93306; 93454; 93971; 94660; 94760; 95810; 96374; 96375; 99285; C1893; G0378; J0360; J1644; J1650; J2250; J2405; J3010; J7040; U0003

== ENCOUNTER 2021-01-16 14:33 | Emergency (ER) | payer OTHER ==
--- OUTSIDE RECORDS SUMMARY | 2021-01-16 14:36 | XMS REPORT | Continuity of Care Document ---
:1960 Author Organization [facility] t Address [address] [place] [address] Care Team Providers Name Role Phone Roberta [...] 2019-01-25 M emoria a 11:26:00 l (finding) [facility] Paresthesi a (finding) Active Problem 01/25/2019 Mischer [...] ents Source Name Type Date Date Clinician NO KNOWN Allergy Active [place] FOOD to da ALLERGIE substanc [facility] penicill penicill Active Memori a ins ins l [facility] Social History Social Habit Start Date Stop Date Quantity Comments Source Sex Assigned At [birth year] [facility] ethodist 00:00:00 00:00:00 Smoking Status Start Date Stop Date Source Former Smoker Tomasa Rodríguez [facility] Health Outreach Program Social History [facility] Medications Ordered Filled Start Stop Current Ordering Indication Dosage Frequency Signature Comments Components Source Medication Medication Date Date Medication? Clinician (SIG) Name Name escitalopra escitalopra No escitalopr [place] m 10 mg m 10 mg am 10 mg da tablet TAKE tablet TAKE tablet [facility] 1 TABLET BY 1 TABLET BY TAKE 1 al MOUTH ONCE MOUTH ONCE TABLET BY Health DAILY DAILY MOUTH ONCE Outreac DAILY h Program Euthyrox Euthyrox No Euthyrox [place] 125 [...] subcutaneou subcutaneo al s pen s pen [facility] injector injector injector Out reac 0.5 ML [...] MEALS TWICE h DAILY WITH Program MEALS Vital Signs Vital Name Observation Time Observation Value Comments Source BP Diastolic 2020-12-07 00:00:00 95 mm[Hg] [facility] Height 2020-12-07 00:00:00 62 [in_i] [facility] BMI (Body Mass 2020-12-07 00:00:00 53.4 kg/m2 [place] 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[facility]) Health Outreach Program BP Systolic 2020-12-07 00:00:00 169 mm[Hg] [facility] Body Weight 2020-12-07 00:00:00 292 [lb_av] [facility] Procedures Procedure Date / Time Performing Clinician Source Performed MAMMO, screening, 2020-12-07 00:00:00 Tomasa [facility] digital, bilateral Health Outrea ch Program section Gary Gongora n Thyroidectomy [facility] Varicose phlebectomy [facility] Plan of Care Planned Activity Planned Date Details Comments Source Future Scheduled 2021-03-20 INFLUENZA VACCINE [place] Test 00:00:00 [code = INFLUENZA VACCINE] Diagnostic Test 2020-12-07 bacterial vaginosis [place] Pending 00:00:00 panel, vaginal [code [facility] = bacterial vaginosis Outrea Program panel, vaginal] Diagnostic Test 2020-12-07 pap, IG + HPV, [place] Pending 00:00:00 cervical [code = pap, [facility] IG + HPV, cervical] Outreach Program Future Scheduled [address] [facility] thodist Test 00:00:00 SCREENING [code = BREAST CANCER SCREENING] Future Scheduled 2008 COLONOSCOPY SCREENING [place] Test 00:00:00 [code = COLONOSCOPY SCREENING] Future Scheduled 2008 SHINGLES VACCINES [place] Test 00:00:00 (#1) [code = SHINGLES VACCINES (#1)] Future Scheduled [address] [facility] thodist Test 00:00:00 malignant neoplasm of cervix (procedure) [code = 937330814] Future Scheduled 1970 COVID-19 VACCINE (1) [place] [facility] Test 00:00:00 [code = COVID-19 VACCINE (1)] Encounters Start End Encounter Admission Attending Care Care Encounter Source Date/Time Date/Time Type Type Clinicians Facility Department ID 2020-12-07 2020-12-07 Teofilo URBINA [facility] [id number] M at[place] 00:00:00 00:00:00 Kendell Henning MD: [facility] [address] [facility] [place], [place] GENERAL ACCOUNTING MANAGER [facility] [id number] h , Ph. Program 2020-10-07 2020-10-08 Emergency [facility] [id number] 21:06:00 03:35:00 Calli Case [id number] [place] [id number] [place] [id number] 2020-10-07 2020-10-07 Emergency [facility] [id number] 01:01:00 06:15:00 Calli Case [id number] [place] [id number] [place] [id number] 2020-09-30 2020-09-30 [facility] [id number] 07:01:00 09:00:00 Encounter Addi Manpreet [id number] Brian Gabriel [id number] Surgical [id number] [place] 071 2020-09-30 2020-09-30 Anesthesia Eliazar Nicolas [facility] [id number] 07:53:00 08:23:00 ShelbyMichael caballero [id number] [place] [id number] Surgical [id number] [place] 020 2020-09-30 2020-09-30 Orders Doctor ROBERT [id number] 00:00:00 00:00:00 Only Unassigned, ELIESER [id number] [place] [facility] [id number] 2020-09-29 2020-09-29 Laboratory Only, [facility] [id number] 09:40:08 09:55:08 Only Test Manpreet [id number] [place] [id number] [place] [id number] 2018-07-08 2018-07-08 Outpatient KARL Hollis [id number] 10:00:00 10:00:00 Raz Murillo Results This patient has no known results.
[2021-01-16] MEDS ORDERED: MORPHINE 4 MG/ML SYR ONE (16:27)
[2021-01-16] MEDS ORDERED: ONDANSETRON 4 MG/2 ML VIAL ONE (16:27)
[2021-01-16 17:40] LABS: Absolute Lymphocytes (CBC) 1.6 K/uL (0.7-4.9); Basophils % 1.5 % (0-1.3); Hematocrit 43.5 % (36.0-45.0); RBC Red Blood Cell Count 4.91 M/uL (3.86-4.86)
[2021-01-16 17:48] LABS: ALT/SGPT 18 U/L (12-78); AST/SGOT 11 U/L (15-37); Albumin 2.4 g/dL (3.4-5.0); Alkaline Phosphatase 72 U/L (45-117); BUN Blood Urea Nitrogen 26 mg/dL (7-18); Bicarbonate 31 mmol/L (21-32); Bilirubin Direct < 0.1 mg/dL (0-0.2); Bilirubin Total 0.2 mg/dL (0.2-1.0); Glucose Level 201 mg/dL (74-106); Lipase 45 U/L (73-393); Potassium 5.1 mmol/L (3.5-5.1); Sodium Level 139 mmol/L (136-145)
--- NOTE | 2021-01-16 18:02 | RAD REPORT ---
EXAM DESCRIPTION: US - Abdomen Exam Limited - 01/16/2021 5:30 pm CLINICAL HISTORY: RUQ pain COMPARISON: No comparisons FINDINGS: No gallstones are identifiable. A small amount of sludge is present within the lumen. Ther e is no wall thickening or pericholecystic fluid. No common duct stone or biliary tree dilatation identified. IMPRESSION: Small quantity gallbladder sludge. No gallbladder or biliary tree finding.
--- NOTE | 2021-01-16 19:22 | EDPHYS ---
Physician Documentation [facility] Name: Caprice Mojica Age: 60 yrs Sex: Female : 1960 Arrival Date: 01/16/2021 Time: 14:38 Bed 19 Private MD: ED Physician Darnell Kay HPI: 01/16 15:26 This 60 yrs old Black Female presents to ER via Ambulatory with complaints of Shoulder pm1 Pain, Back Pain. 15:26 The patient or guardian complains of pain. between shoulder blades. Context: resulted pm1 from an unknown reason. Onset: The symptoms/episode began/occurred 3 week(s) ago. Modifying factors: the symptoms are alleviated by nothing. The symptoms are aggravated by nothing. Associated signs and symptoms: Pertinent positives: abdominal pain, of the RUQ, Pertinent negatives: chest pain. Severity of symptoms: in the emergency department the symptoms are unchanged. Treatment prior to arrival includes: Patient was admitted on 12/29 for the same complaint and was ruled out from a cardiac standpoint. Had a cardiac cath that was negative for any blockage. Patient is concerned that it might be her gallbladder because she does not believe that it was ruled out as a cause for pain during her hospitalization. Historical: - Allergies: 14:49 PENICILLINS; ll1 - PMHx: 14:49 Diabetes - IDDM; Hyperlipidemia; Hypertension; ll1 - PSHx: 14:49 Thyroidectomy; Hysterectomy; ll1 - Immunization history:: Client reports receiving the 2nd dose of the Covid vaccine, Flu vaccine is up to date. - Social history:: Smoking status: Patient denies any tobacco usage or history of. ROS: 15:26 Constitutional: Negative for fever, chills, and weight loss, Eyes: Negative for injury, pm1 pain, redness, and discharge, ENT: Negative for injury, pain, and discharge, Neck: Negative for injury, pain, and swelling. 15:26 Respiratory: Negative for shortness of breath, cough, wheezing, and pleuritic chest pain. 15:26 MS/Extremity: Negative for injury and deformity, Skin: Negative for injury, rash, and discoloration. 15:26 Neuro: Negative for headache, weakness, numbness, tingling, and seizure. 15:26 Cardiovascular: Positive for chest pain, Negative for edema, palpitations. 15:26 Abdomen/GI: Positive for abdominal pain, of the right upper quadrant, Negative for nausea, vomiting, and diarrhea. 15:26 Back: Positive for of the between shoulders- pain. Exam: 15:26 Constitutional: This is a well developed, well nourished patient who is awake, alert, pm1 and in no acute distress. Head/Face: Normocephalic, atraumatic. 15:26 Chest/axilla: Normal chest wall appearance and motion. Nontender with no deformity. No lesions are appreciated. 15:26 Back: No spinal tenderness. No costovertebral tenderness. Full range of motion. Skin: Warm, dry with normal turgor. Normal color with no rashes, no lesions, and no evidence of cellulitis. MS/ Extremity: Pulses equal, no cyanosis. Neurovascular intact. Full, normal range of motion. 15:26 Eyes: Exam is negative for acute changes, Periorbital structures: appear normal, Extraocular movements: no acute changes, Conjunctiva: no acute changes. 15:26 ENT: Mouth: Lips: normal, Oral mucosa: normal, pink and intact, moist. 15:26 Cardiovascular: Rate: normal, Rhythm: regular, Pulses: no pulse deficits are appreciated, Edema: is not appreciated. 15:26 Respiratory: Exam negative for acute changes, respiratory distress, shortness of breath, Breath sounds: are clear throughout. 15:26 Abdomen/GI: Inspection: obese Palpation: soft, in all quadrants, mild abdominal tenderness, in the right upper quadrant. 15:26 Neuro: Exam negative for acute changes, Orientation: is normal, Mentation: is normal, Motor: is normal, moves all fours. Vital Signs: 14:45 BP 180 / 83; Pulse 58; Resp 16; Temp 98.3; Pulse Ox 95% on R/A; Weight 130.18 kg; ll1 Height 5 ft. 2 in. (157.48 cm); Pain 10/10; 16:31 BP 153 / 92; Pulse 53; Resp 20; Pulse Ox 96% ; rb3 18:03 BP 158 / 78; Pulse 57; Resp 19; Pulse Ox 98% ; rb3 19:37 BP 141 / 75; Pulse 59; Resp 16; Pulse Ox 98% ; rr5 14:45 Body Mass Index 52.49 (130.18 kg, 157.48 cm) ll1 MDM: 15:03 Patient medically screened. pm1 19:18 Data reviewed: vital signs. Data interpreted: Pulse oximetry: on room air is 98 %. pm1 Interpretation: normal. Counseling: I had a detailed discussion with the patient and/or guardian regarding: the historical points, exam findings, and any diagnostic results supporting the discharge/admit diagnosis, lab results, radiology results, the need for outpatient follow up, a general surgeon, to return to the emergency department if symptoms worsen or persist or if there are any questions or concerns that arise at home. 01/16 15:14 Order name: Basic Metabolic Panel; Complete Time: 18:26 pm1 01/16 15:14 Order name: CBC with Diff; Complete Time: 18:26 pm1 01/16 15:14 Order name: Hepatic Function; Complete Time: 18:26 pm1 01/16 15:14 Order name: Lipase; Complete Time: 18:26 pm1 01/16 15:14 Order name: US Abdomen Limited; Complete Time: 18:26 pm1 01/16 15:14 Order name: IV Saline Lock; Complete Time: 17:14 pm1 01/16 15:14 Order name: Labs collected and sent; Complete Time: 17:14 pm1 01/16 15:29 Order name: EKG; Complete Time: 15:30 pm1 01/16 15:29 Order name: EKG - Nurse/Tech; Complete Time: 16:44 pm1 Administered Medications: 17:10 Drug: morphine 4 mg Route: IVP; Site: left jugular; bp 17:25 Follow up: Response: No adverse reaction; Pain is decreased rb3 17:10 Drug: Zofran (Ondansetron) 4 mg Route: IVP; Site: left jugular; bp 17:25 Follow up: Response: No adverse reaction rb3 19:55 Drug: Bentyl (dicyclomine) 20 mg Route: PO; rr5 19:55 Follow up: Response: Medication administered at discharge. rr5 Disposition: 01/17 07:32 Co-signature as Attending Physician, Darnell Kay MD I agree with the assessment and kay plan of care. Disposition: 01/16/21 19:21 Discharged to Home. Impression: Cholelithiasis. - Condition is Stable. - Discharge Instructions: Cholelithiasis. - Prescriptions for Bentyl 20 mg Oral Tablet - take 1 tablet by ORAL route every 6 hours As needed; 20 tablet. - Medication Reconciliation Form, Thank You Letter, Antibiotic Education, Prescription Opioid Use, SBAR form form. - Follow up: Emergency Department; When: As needed; Reason: Worsening of condition. Follow up: Private Physician; When: 2 - 3 days; Reason: Recheck today's complaints, Continuance of care, Re-evaluation by your physician. Follow up: Tigre Rodriguez MD; When: 2 - 3 days; Reason: Recheck today's complaints, Continuance of care, Re-evaluation by your physician. - Problem is new. - Symptoms have improved. Signatures: Dispatcher [employer] EDMS Darnell Kay MD MD cha Marinas, Patrick, FLOR LIFT SLAB OPERATOR pm1 Eliazar Owusu RN RN bp Naeem Clement RN RN rr5 Clare Baltazar RN RN ll1 Radha Rodrigues RN rb3 Corrections: (The following items were deleted from the chart) 01/16 19:44 19:21 01/16/2021 19:21 Discharged to Home. Impression: Cholelithiasis. Condition is rr5 Stable. Forms are SBAR form, Medication Reconciliation Form, Thank You Letter, Antibiotic Education, Prescription Opioid Use. Follow up: Emergency Department; When: As needed; Reason: Worsening of condition. Follow up: Private Physician; When: 2 - 3 days; Reason: Recheck today's complaints, Continuance of care, Re-evaluation by your physician. Follow up: Tigre Rodriguez; When: 2 - 3 days; Reason: Recheck today's complaints, Continuance of care, Re-evaluation by your physician. Problem is new. Symptoms have improved. pm1 19:58 19:44 01/16/2021 19:21 Discharged to Home. Impression: Cholelithiasis. Condition is rr5 Stable. Discharge Instructions: Cholelithiasis. Prescriptions for Bentyl 20 mg Oral Tablet - take 1 tablet by ORAL route every 6 hours As needed; 20 tablet. and Forms are SBAR form, Medication Reconciliation Form, Thank You Letter, Antibiotic Education, Prescription Opioid Use. Follow up: Emergency Department; When: As needed; Reason: Worsening of condition. Follow up: Private Physician; When: 2 - 3 days; Reason: Recheck today's complaints, Continuance of care, Re-evaluation by your physician. Follow up: Tigre Rodriguez; When: 2 - 3 days; Reason: Recheck today's complaints, Continuance of care, Re-evaluation by your physician. Problem is new. Symptoms have improved. rr5
--- NOTE | 2021-01-16 19:22 | ER ---
Nurse's Notes [facility] Name: Caprice Mojica Age: 60 yrs Sex: Female : 1960 Arrival Date: 01/16/2021 Time: 14:38 Bed 19 Private MD: Diagnosis: Cholelithiasis Presentation: 01/16 14:45 Chief complaint: Patient states: Pain between shoulder blades that wrap around trunk ll1 into chest for over 3 weeks. Was hospitalized 12/29 for HTN, still has HTN and CP since the admission. Coronavirus screen: Client denies travel out of the [place] in the last 14 days. At this time, the client does not indicate any symptoms associated with coronavirus-19. Ebola Screen: Patient denies travel to an Ebola-affected area in the 21 days before illness onset. Initial Sepsis Screen: Does the patient meet any 2 criteria? No. Patient's initial sepsis screen is negative. Does the patient have a suspected source of infection? No. Patient's initial sepsis screen is negative. Risk Assessment: Do you want to hurt yourself or someone else? Patient reports no desire to harm self or others. Onset of symptoms was December 24, 2020. 14:45 Acuity: HERLINDA 2 ll1 14:45 Method Of Arrival: Ambulatory ll1 Historical: - Allergies: 14:49 PENICILLINS; ll1 - PMHx: 14:49 Diabetes - IDDM; Hyperlipidemia; Hypertension; ll1 - PSHx: 14:49 Thyroidectomy; Hysterectomy; ll1 - Immunization history:: Client reports receiving the 2nd dose of the Covid vaccine, Flu vaccine is up to date. - Social history:: Smoking status: Patient denies any tobacco usage or history of. Screenin:55 Abuse screen: Denies threats or abuse. Nutritional screening: No deficits noted. rb3 Tuberculosis screening: No symptoms or risk factors identified. Fall Risk None identified. Assessment: 14:55 General: Appears in no apparent distress. Behavior is calm, cooperative. Pain: rb3 Complains of pain in Between shoulders Pain currently is 7 out of 10 on a pain scale. Neuro: Level of Consciousness is awake, alert, obeys commands, Oriented to person, place, time, situation. Cardiovascular: Patient's skin is warm and dry. Respiratory: Airway is patent Respiratory effort is even, unlabored, Respiratory pattern is regular, symmetrical. GI: Reports nausea. : No signs and/or symptoms were reported regarding the genitourinary system. 15:53 Reassessment: Patient appears in no apparent distress at this time. No changes from rb3 previously documented assessment. 16:50 Reassessment: Patient appears in no apparent distress at this time. Patient and/or rb3 family updated on plan of care and expected duration. Pain level reassessed. Patient is alert, oriented x 3, equal unlabored respirations, skin warm/dry/pink. 17:50 Reassessment: Patient appears in no apparent distress at this time. Patient states rb3 feeling better. Patient states symptoms have improved. 19:36 Reassessment: Patient appears in no apparent distress at this time. Patient is alert, rr5 oriented x 3, equal unlabored respirations, skin warm/dry/pink. discharge instruction given and explained without complaints made Patient states feeling better. Patient states symptoms have improved. Vital Signs: 14:45 BP 180 / 83; Pulse 58; Resp 16; Temp 98.3; Pulse Ox 95% on R/A; Weight 130.18 kg; ll1 Height 5 ft. 2 in. (157.48 cm); Pain 10/10; 16:31 BP 153 / 92; Pulse 53; Resp 20; Pulse Ox 96% ; rb3 18:03 BP 158 / 78; Pulse 57; Resp 19; Pulse Ox 98% ; rb3 19:37 BP 141 / 75; Pulse 59; Resp 16; Pulse Ox 98% ; rr5 14:45 Body Mass Index 52.49 (130.18 kg, 157.48 cm) ll1 ED Course: 14:38 Patient arrived in ED. bp1 14:45 Arm band placed on. ll1 14:48 Triage completed. ll1 14:55 Patient has correct armband on for positive identification. Bed in low position. Call rb3 light in reach. Side rails up X 1. Pulse ox on. NIBP on. 15:02 Peter Willard NP is PHCP. pm1 15:02 Darnell Kay MD is Attending Physician. pm1 15:27 Warm blanket given. Verbal reassurance given. Assisted with dressing. mb4 15:27 EKG done, by ED staff, reviewed by Peter Willard NP. mb4 15:59 Radha Rodrigues, RN is Primary Nurse. rb3 16:00 Missed attempt(s): 22 gauge in left antecubital area. rb3 17:13 Initial lab(s) drawn, by ED staff, sent to lab. mb4 17:14 Inserted saline lock: 18 gauge in left EJ, using aseptic technique. Blood collected. bp 17:30 US Abdomen Limited In Process Unspecified. EDMS 19:19 Tigre Rodriguez MD is Referral Physician. pm1 19:37 No provider procedures requiring assistance completed. IV discontinued, intact, rr5 bleeding controlled, No redness/swelling at site. Pressure dressing applied. Administered Medications: 17:10 Drug: morphine 4 mg Route: IVP; Site: left jugular; bp 17:25 Follow up: Response: No adverse reaction; Pain is decreased rb3 17:10 Drug: Zofran (Ondansetron) 4 mg Route: IVP; Site: left jugular; bp 17:25 Follow up: Response: No adverse reaction rb3 19:55 Drug: Bentyl (dicyclomine) 20 mg Route: PO; rr5 19:55 Follow up: Response: Medication administered at discharge. rr5 Outcome: 19:21 Discharge ordered by MD. pm1 19:37 Discharged to home ambulatory. rr5 19:37 Condition: stable 19:37 Discharge instructions given to patient, Instructed on discharge instructions, follow up and referral plans. medication usage, Demonstrated understanding of instructions, follow-up care, medications, Prescriptions given X 1. 19:44 Patient left the ED. rr5 19:58 Patient left the ED. rr5 Signatures: Dispatcher [employer] EDUT Peter Willard, FLOR BONDING EQUIPMENT OPERATOR pm1 Eliazar Owusu RN RN bp Renay Babb mb4 Naeem Clement RN RN rr5 Clare Baltazar RN RN ll1 Rosa Maria Richard [facility] Radha Rodrigues, RN RN rb3
[2021-01-16 19:51] VITALS: TEMP 98.3
[2021-01-16 19:53] VITALS: O2SAT 98
[2021-01-16 19:55] VITALS: BP 141/75
[2021-01-16] MEDS ORDERED: DICYCLOMINE HCL 10 MG CAP ONE (20:17)
--- NOTE | 2021-01-19 12:06 | EKG ---
Test Date: 2021-01-16 Test Time: 15:24:26 Assistant Plant Controller: EDMUNDO MEASUREMENT RESULTS: Intervals: Rate: 56 TX: 218 QRSD: 92 QT: 436 QTc: 420 [place]: P: 23 TX: 218 QRS: 28 T: 57 INTERPRETIVE STATEMENTS: Sinus bradycardia with 1st degree AV block Otherwise normal ECG Compared to ECG 12/29/2020 05:56:47 Sinus rhythm no longer present Electronically Signed On 01-19-21 11:55:09 CDT by Tha Morelos
== END 2021-01-16 19:58 | disposition home or self-care (01) ==
LOC: ER 14:33
DX: K80.20 Calculus of gallbladder without cholecystitis without obstruction (principal); I10 Essential (primary) hypertension; Z88.0 Allergy status to penicillin
CPT/HCPCS: 93005; 85025; 80048; 36415; 80076; 83690; 76705; 96375; 96374; 99284; J2405

== ENCOUNTER 2021-01-26 08:12 | Day surgery (SDC) | payer OTHER ==
[2021-01-26] MEDS ORDERED: NA CHLORIDE 0.9% 1,000 ML ONE (08:55)
[2021-01-26] MEDS: CIPROFLOXACIN 400mg IV 400 MG/200 ML BAG IV ONE ×2 (10:12→11:00)
[2021-01-26] MEDS ORDERED: ACETAMINOPHEN 500 MG TAB ONE (10:18)
[2021-01-26] MEDS ORDERED: propofoL 200 MG/20 ML VIAL IV ONE (11:03)
[2021-01-26] MEDS ORDERED: MIDAZOLAM HCL 2 MG/2 ML INJ ONE (11:03)
[2021-01-26] MEDS ORDERED: FENTANYL CITR 100 MCG/2 ML ONE (11:03)
[2021-01-26] MEDS ORDERED: ROCURONIUM 50 MG/5 ML VIAL IV ONE (11:04)
[2021-01-26] MEDS ORDERED: LIDOCAINE 1% MPF 5 ML VIAL ONE (11:04)
[2021-01-26] MEDS ORDERED: dexAMETHasone 10 MG/ML VIAL ONE (11:35)
[2021-01-26] MEDS ORDERED: ONDANSETRON 4 MG/2 ML VIAL ONE ×2 (11:43→12:29)
[2021-01-26] MEDS ORDERED: KETOROLAC 30 MG/ML INJ ONE (11:43)
[2021-01-26] MEDS ORDERED: GLYCOPYRROLATE 0.2 MG/ML SYR ONE ×2 (11:50)
[2021-01-26] MEDS ORDERED: NEOSTIGMINE 1 MG/ML -5 ML ONE (11:50)
--- NOTE | 2021-01-26 11:55 | P.BOP ---
Preoperative diagnosis: RUQ abd pain, cholecystitis, sympt cholelithiasis Postoperative diagnosis: same plus intrabdominal adhesions Primary procedure: Laparoscopic cholecystectomy Secondary procedure: Lap lysis of adhesions Columnist/Commentator: OLEG ELIAS (COVER STITCH MACHINE OPERATOR) Estimated blood loss: <10cc Specimen: gn Findings: see dicta Anesthesia: General Complications: None Transferred to: Recovery Room Condition: Good
[2021-01-26] MEDS ORDERED: PROMETHAZINE INJ 25 MG/ML AMP ONE (12:39)
[2021-01-26] MEDS ORDERED: SCOPOLAMINE HYDROBROMIDE PATCH TD ONE (12:56)
[2021-01-26] MEDS ORDERED: METOCLOPRAMIDE 10 MG/2mL INJ ONE (12:57)
--- NOTE | 2021-01-26 14:06 | DS ---
Diagnoses: Right upper quadrant abdominal pain, cholecystitis, and symptomatic cholelithiasis. Procedure: Laparoscopic cholecystectomy. Disposition: Home. Activity: As tolerated. No heavy lifting. Plan: Follow up in my office in 1 week. Call for appointment at [phone]. Keep area dry for 48 clara rs, then may shower. Medications: See orders. NOE/ANDERSON Voice ID: [id number] Report ID: [id number]
--- NOTE | 2021-01-26 14:06 | OP ---
Date of Procedure: 01/26/2021 Surgeon: Tigre Rodriguez MD Preoperative Diagnoses: Symptomatic cholelithiasis, right upper quadrant pain, cholecystitis. Postoperative Diagnosis: Symptomatic cholelithiasis. Procedure: Laparoscopic cholecystectomy. Anesthesia: General plus local. Complications: None. Findings: Multiple intraabdominal adhesions in the right upper quadrant and midline. Distended gall bladder. Indication: This is the case of a 60-year-old patient, comes to us with abdominal pain in epigastric right upper quadrant, radiating to the back with nausea, bloating. The patient has extensive workup done, found to have findings as diagnosis. Fully explained different options including GI workup wi th a liquor merchant and they referred the patient to our office for cholecystectomy due to a slud ge and cholecystitis symptoms. The benefits, alternatives, and risks of laparoscopic possible open c holecystectomy were fully explained, which include, but not limited to infection, bleeding, damage to adjacent structures, anesthesia complication, choledocholithiasis, bile leak, pancreatitis, NV, and even . She also understands this may not relieve any symptoms. She might need more than one espinoza rgical intervention. She understood, signed a consent. Procedure In Detail: The patient was brought to the operating room, placed in supine position. Anes thesia was done without complication. Abdominal area was prepped and draped in usual sterile fashion . Marcaine 0.5% was injected for local anesthetic followed by sharp incision of the skin in the supr aumbilical region. The incision was carried down to fascia, which was opened under direct vision. P eritoneum was encountered, opened under direct vision. Vicryl #1 placed inside the fascia. Rolf t rocar was carefully introduced. Pneumoperitoneum was obtained. Once we put the cameras, we noticed extensive intraabdominal adhesions, so we have to then find a way out to put a 5 mm trocar in the epi gastric area under direct visualization and with that, I used LigaSure to remove adhesions to the poi nt that we can release the gallbladder, release the liver and open the area so we can put 2 more troc ars and continue with the surgery. Once we finished the lysis of adhesions, we checked the area, no bleeding. At that moment, I proceeded to place 2 more trocars, 5 mm each one of them in the right up per quadrant. This allowed me to put a grasper in the fundus of the gallbladder and another grasper in the infundibulum retracting the gallbladder in the inferolateral fashion, exposing the triangle of Calot and obtaining critical view. Cystic duct and cystic artery were clearly isolated, freed circu mferentially and a connection between those and the gallbladder was clearly identified. I proceeded to ligate those by using at least 3 clips proximal, 1 clip distal, ligation in middle. Same was done with the cystic artery. No bile leak, no bleeding. The gallbladder was removed from liver using Oswaldo vie cauterizer and removed from abdominal cavity using EndoCatch through umbilical incision. The are a was inspected once again. No bile leak, no bleeding. Clips were intact. The area of the lysis of adhesions also intact with no bleeding. At that moment, I proceeded to remove the trocars under dir ect vision. Deflated the pneumoperitoneum. Closed the fascia with #1 Vicryl. Irrigated subcutaneou s tissue, closed with 3-0 chromic and skin with keyla. Sponge count and instrument counts correct. The patient tolerated the procedure well. The patient was sent to Recovery in stable condition. NOE/ANDERSON Voice ID: [id number] Report ID: [id number]
[2021-01-26 16:15] VITALS: BP 108/52; TEMP 97.1; O2SAT 97
== END 2021-01-26 15:00 | disposition home or self-care (01) ==
LOC: OR 08:12
PROVIDERS: ATTEND Surgery
PROC: 0FT44ZZ Resection of Gallbladder, Percutaneous Endoscopic Approach (ICD-10-PCS; principal; 2021-01-26 10:00)
DX: K80.10 Calculus of gallbladder with chronic cholecystitis without obstruction (principal); R10.12 Left upper quadrant pain; E11.9 Type 2 diabetes mellitus without complications; I10 Essential (primary) hypertension; J44.9 Chronic obstructive pulmonary disease, unspecified; J45.909 Unspecified asthma, uncomplicated; E78.00 Pure hypercholesterolemia, unspecified; Z20.822 Contact with and (suspected) exposure to COVID-19
CPT/HCPCS: 36415; 82150; 82947 ×2; 88304; 47562; U0003; J2704; J2765; J2550; J2250; J3010; J1100; J2710; J7030; J2405 ×2; J0744

== ENCOUNTER 2022-12-27 11:33 | Inpatient (IN) | payer OTHER ==
--- OUTSIDE RECORDS SUMMARY | 2022-12-27 11:39 | XMS REPORT | Continuity of Care Document ---
:1960 Author Organization [facility] t Address [address] [place] [address] Care Team Providers Name Role Phone Popeye Granados MD Primary Care Physician MIGUEL LARA Attending Clinician Unavailable ROBERTO MALIK Attending Clinician Unavailable POLA MCMAHON Attending Clinician Unavailable TAHMINA AZUL Attending Clinician Unavailable FB, TECH 1 Attending Clinician Unavailable JEAN CARLOS SAMUEL Attending Clinician Unavailable MD NOEMI Attending Clinician Unavailable SYLVIA NAVARRO Attending Clinician Unavailable [id number] Attending Clinician Unavailable [id number] Attending Clinician Unavailable Doctor Unassigned, [place] Attending Clinician Unavailable ENRIKE MONAHAN Attending Clinician Unavailable JESU Attending Clinician Unavailable Mago Cobb MD Attending Clinician MAGO COBB Attending Clinician Unavailable Miguel Lara MD Attending Clinician Eliazar Nicolas CRNA Attending Clinician Michael Ryan MD Attending Clinician Only, Adc Test Attending Clinician Unavailable Michael Attending Clinician Unavailable Raz Hollis Attending Clinician MIGUEL LARA Admitting Clinician Unavailable JESU Admitting Clinician Unavailable MAGO COBB Admitting Clinician Unavailable Miguel Lara MD Admitting Clinician Michael Admitting Clinician Unavailable Payers Payer Name Policy Type Policy Number Effective Date Expiration Date [id number] CHOICE 00:00:00 [employer]NA [facility] 9 [id number] 2022 [facility] HMO ON 00:00:00 [facility] [id number] [facility] 3 SHARE PROGRAM (HMO) AETNA - 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 due 12-18 ybold to to 00:00: - conditions conditions 00 Ex terna classified classified l elsewhere elsewhere Stage 4 Stage 4 Disease Active [facility] chronic chronic 4-02 Seybold kidney kidney 00:00: - disease disease 00 Externa l Hypertensi Hypertensi Disease Active Lillian mercer on on 10-30 Seybold 00:00: - 00 Externa l Simple Simple Disease Active [facility] chronic chronic 3- Seybold bronchitis bronchitis 00:00: - 00 Externa l 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 3-13 Seybol d mellitus, mellitus, 00:00: - with with 00 Externa long-term long-term l current current use of use of insulin insulin MAX on MAX on Disease Active [facility] CPAP CPAP 3-13 Seybold 00:00: - 00 Externa l Class 3 Class 3 Disease Active [facility] severe severe 3-13 Seybold obesity obesity 00:00: - due to due to 00 Externa excess excess l calories calories with with serious serious comorbidit comorbidit y and body y and body mass index mass index (BMI) of (BMI) of 50.0 to 50.0 to 59.9 in 59.9 in adult adult Seasonal Seasonal Disease Active Kelse y allergic allergic 3-13 Seybol d rhinitis rhinitis 00:00: - due to due to 00 Externa pollen pollen l 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 00:00: - mixed mixed 00 Externa hyperlipid hyperlipid l emia emia 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 3-13 Se ybold athy athy 00:00: - associated associated 00 Ex terna with type with type l 2 diabetes 2 diabetes mellitus mellitus Acquired Acquired Disease Active Kelse y hypothyroi hypothyroi 3-13 Se ybold dism dism 00:00: - 00 Externa l Chronic Chronic Disease Active [facility] 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 00:00: - heart heart 00 Externa failure failure l Thyroid Thyroid Disease Active [facility] goiter goiter 4-03 ity of 00:00: [place] [facility] Morbid Morbid Problem Active 2019-01-25 Mem [facility]ria obesity obesity 11:26:00 l (disorder) (disorder) Robert mirandaann Active Problem 01/25/2019 [facility] Neck pain Neck pain Problem Active 2019-01-25 Memoria (finding) (finding) 11:26:00 l Active [place] Problem 01/25/2019 [facility] Paresthesi Paresthes Problem Active 2019-01-25 Memoria a ia 11:26:00 l (finding) (finding) Cedric tianna Active Problem 01/25/2019 [facility] Shoulder Shoulder Problem Active 2019-01-25 Memoria pain pain 11:26:00 l (finding) (finding) Herm tianna Active Problem 01/25/2019 [facility] Diabetes Diabetes Problem Active 2019-01-25 Memoria mellitus mellitus 11:26:00 l (disorder) (disorder) He rmann Active Problem 01/25/2019 [facility] Allergies, Adverse Reactions, Alerts Allergy Allergy Status Severity Reaction(s) Onset Inactive Treating Comm ents Source Name Type Date Date Clinician Penicill Propensi Active Rash [facility] ins ty to 2-24 Seybold adverse 00:00: - reaction 00 Externa s l Doxycycl Propensi Active Rash [facility] ine ty to 8-12 Seybold adverse 00:00: - reaction 00 Externa s l PENICILL Drug Active Hives 2010-08 Univers INS Class 0-04 ity of 00:00: [place] 00 [facility] Penicill Propensi Active Hives 2010-08 Univer s ins ty to 0-04 ity of adverse 00:00: [place] reaction 00 Medical s Branch Penicill Propensi Active Hives 2010-08 Univer s ins ty to 0-04 ity of adverse 00:00: [place] reaction 00 Medical s Branch penicill penicill Active Memori a ins ins l [place] NO KNOWN Allergy Active [place] FOOD to da ALLERGIE substanc [facility] Social History Social Habit Start Date Stop Date Quantity Comments Source Exposure to Not sure University of SARS-CoV-2 (event) [facility] Gender identity [facility] Sexual orientation Method [facility] Alcohol intake 2022-12-18 2022-12-18 Lifetime [facility] Skinner bold - 00:00:00 00:00:00 non-drinker External (finding) Tobacco use and 2022-11-13 2022-11-13 Smokeless [facility] Se ybold - exposure 00:00:00 00:00:00 tobacco non-user External History of Social 2022-11-13 2022-11-13 Chap[facility] Seybold - function 00:00:00 00:00:00 External Sex [birth year] At [birth year] [facility] 00:00:00 00:00:00 Hospital Smoking Status Start Date Stop Date Source Former Smoker [place] [facility] Tobacco smoking consumption Meth [facility] unknown Social History [facility] Medications Ordered Filled Start Stop Current Ordering Indication Dosage Frequency Signature Comments Components Source Medication Medication Date Date Medication? Clinician (SIG) Name Name Insulin Yes 30U Inject 30 Kelse y NPH, 5-01 units into Seybold Human,, 13:42: the skin 2 - Isophane, 12 times Externa 100 UNIT/ML daily l subcutaneou s Suspension Aspirin 81 0 Yes [id number] 81mg Take 1 [facility] MG oral 5-01 tablet (81 Seybol d Tablet 13:42: mg total) - Delayed 12 by mouth Externa Response daily l Insulin 0 Yes 30U Inject 30 Kelse y NPH, 5-01 units into Seybold Human,, 13:42: the skin 2 - Isophane, 12 times Externa 100 UNIT/ML daily l subcutaneou s Suspension Aspirin 81 0 Yes [id number] 81mg Take 1 [facility] MG oral 5-01 tablet (81 Seybol d Tablet 13:42: mg total) - Delayed 12 by mouth Externa Response daily l Bumetanide 0 Yes [id number] 1mg Take 1 K elsey 1 MG oral 5-01 tablet (1 Seybo ld Tablet 00:00: mg total) - 00 by mouth 2 Externa times l daily Bumetanide 0 Yes [id number] 1mg Take 1 K elsey 1 MG oral 5-01 tablet (1 Seybo ld Tablet 00:00: mg total) - 00 by mouth 2 Externa times l daily Gabapentin 2022-0 Yes [id number] 300mg Take 1 [facility] 300 MG oral 4-24 capsule Seybo ld Capsule 00:00: (300 mg - 00 total) by Externa mouth 2 l times daily Gabapentin 0 Yes [id number] 300mg Take 1 [facility] 300 MG oral 4-24 capsule Seybo ld Capsule 00:00: (300 mg - 00 total) by Externa mouth 2 l times daily Fluticasone 0 2022- No INHALE 1 K elsey -Umeclidin- 4-18 04-18 PUFF ONCE Se ybold Vilant 13:59: 00:00 DAILY FOR - (Trelegy 36 :00 30 DAYS Externa Ellipta) l 200-62.5-25 MCG/ACT inhalation AEROSOL POWDER, BREATH ACTIVATED Insulin Yes 30U Inject 30 Kelse y NPH, 4-18 units into Seybold Human,, 13:38: the skin 2 - Isophane, 11 times Externa 100 UNIT/ML daily l subcutaneou s Suspension Aspirin 81 2022-0 Yes [id number] 81mg Take 1 [facility] MG oral 4-18 tablet (81 Seybol d Tablet 13:38: mg total) - Delayed 11 by mouth Externa Response daily l Fluticasone 2022-0 Yes 1{puff} Inhale 1 [facility] -Salmeterol 4-18 puff into y bold (Advair 00:00: the lungs - Diskus) 00 2 times Externa 500-50 daily l MCG/ACT inhalation AEROSOL POWDER, BREATH ACTIVATED Fluticasone 2022-0 Yes 1{puff} Inhale 1 [facility] -Salmeterol 4-18 puff into SERPs bold (Advair 00:00: the lungs - Diskus) 00 2 times Externa 500-50 daily l MCG/ACT inhalation AEROSOL POWDER, BREATH ACTIVATED Fluticasone 2022-0 Yes 1{puff} Inhale 1 [facility] -Salmeterol 4-18 puff into SERPs bold (Advair 00:00: the lungs - Diskus) 00 2 times Externa 500-50 daily l MCG/ACT inhalation AEROSOL POWDER, BREATH ACTIVATED Albuterol 2022-0 Yes [facility] Sulfate 4-11 Seybold 0.63 MG/3ML 00:00: - inhalation 00 Externa Inhalant l Solution Albuterol 2022-0 Yes [facility] Sulfate 4-11 Seybold 0.63 MG/3ML 00:00: - inhalation 00 Externa Inhalant l Solution Albuterol 2022-0 Yes [facility] Sulfate 4-11 Seybold 0.63 MG/3ML 00:00: - inhalation 00 Externa Inhalant l Solution Bumetanide 2022-0 Yes 1mg Take 1 Kelse y 1 MG oral 4-03 tablet (1 Seybo ld Tablet 00:00: mg total) - 00 by mouth Externa daily l Gabapentin, 2022-0 Yes [id number] 1{tbl} Take 1 [facility] Once-Daily, 4-03 tablet by Sey bold (Gralise) 00:00: mouth - 300 MG oral 00 daily Externa Tablet l Bumetanide 2022-0 3- No 1mg Take 1 Muna ey 1 MG oral 4-03 05-01 tablet (1 Seyb old Tablet 00:00: 00:00 mg total) - 00 :00 by mouth Externa daily l Levothyroxi 2022-0 Yes [id number] 175ug Take 1 [facility] ne Sodium 3-28 tablet Seybold 175 MCG 00:00: (175 mcg - oral Tablet 00 total) by Ext courtney mouth l daily Rosuvastati 2022-0 Yes [id number] 20mg Take 1 [facility] n Calcium 3-28 3 tablet (20 Seyb old 20 MG oral 00:00: mg total) - Tablet 00 by mouth Externa daily l Levothyroxi 2022-0 Yes [id number] 175ug Take 1 [facility] ne Sodium 3-28 tablet Seybold 175 MCG 00:00: (175 mcg - oral Tablet 00 total) by Ext courtney mouth l daily Rosuvastati 2022-0 Yes [id number] 20mg Take 1 [facility] n Calcium 3-28 3 tablet (20 Seyb old 20 MG oral 00:00: mg total) - Tablet 00 by mouth Externa daily l Levothyroxi 2022-0 Yes [id number] 175ug Take 1 [facility] ne Sodium 3-28 tablet Seybold 175 MCG 00:00: (175 mcg - oral Tablet 00 total) by Ext courtney mouth l daily Rosuvastati 2022-0 Yes [id number] 20mg Take 1 [facility] n Calcium 3-28 3 tablet (20 Seyb old 20 MG oral 00:00: mg total) - Tablet 00 by mouth Externa daily l Irbesartan 2022-0 Yes [id number] 150mg Take 1 [facility] 150 MG oral 3-27 tablet Seybol d Tablet 00:00: (150 mg - 00 total) by Externa mouth l nightly hydrALAZINE 2022-0 Yes [id number] 50mg Take 1 [facility] HCl 50 MG 3-27 tablet (50 Seyb old oral Tablet 00:00: mg total) - 00 by mouth 3 Externa times l daily Irbesartan 2022-0 Yes [id number] 150mg Take 1 [facility] 150 MG oral 3-27 tablet Seybol d Tablet 00:00: (150 mg - 00 total) by Externa mouth l nightly hydrALAZINE 2022-0 Yes [id number] 50mg Take 1 [facility] HCl 50 MG 3-27 tablet (50 Seyb old oral Tablet 00:00: mg total) - 00 by mouth 3 Externa times l daily Irbesartan 0 Yes [id number] 150mg Take 1 [facility] 150 MG oral 3-27 tablet Seybol d Tablet 00:00: (150 mg - 00 total) by Externa mouth l nightly hydrALAZINE 0 Yes [id number] 50mg Take 1 [facility] HCl 50 MG 3-27 tablet (50 Seyb old oral Tablet 00:00: mg total) - 00 by mouth 3 Externa times l daily Gabapentin, 0 2022- No 3{tbl} Take 3 K elsey Once-Daily, 3-13 03-13 tablets by Mady mayorga (Gralise) 14:05: 00:00 mouth as - 300 MG oral 49 :00 needed Cracker Off a Tablet l Bumetanide Yes 1mg Take 1 mg Ke lsey 1 MG oral 3-13 by mouth Seybol d Tablet 13:58: daily - 43 Externa l Insulin Yes 30U Inject 30 Kelse y NPH, 3-13 units into Seybold Human,, 13:53: the skin 2 - Isophane, 32 times Externa 100 UNIT/ML daily l subcutaneou s Suspension Fluticasone Yes INHALE 1 Ke lsey -Umeclidin- 3-13 PUFF ONCE Sey bold Vilant 13:43: DAILY FOR - (Trelegy 37 30 DAYS Externa Ellipta) l 200-62.5-25 MCG/ACT inhalation AEROSOL POWDER, BREATH ACTIVATED Spironolact Yes [id number] 25mg Take 1 [facility] one 25 MG 3-13 tablet (25 Seyb old oral Tablet 00:00: mg total) - 00 by mouth 2 Externa times l daily Montelukast 0 Yes [id number] 10mg Take 1 [facility] (SINGULAIR) 3-13 tablet (10 Se ybold 10 MG oral 00:00: mg total) - Tablet 00 by mouth Externa tablet nightly l cloNIDine 2022-0 Yes [id number] 1{patch Apply 1 [facility] 0.2 MG/24HR 3-13 } patch Seybold transdermal 00:00: topically - PATCH 00 every 7 Externa WEEKLY days l Spironolact 2022-0 Yes [id number] 25mg Take 1 [facility] one 25 MG 3-13 tablet (25 Seyb old oral Tablet 00:00: mg total) - 00 by mouth 2 Externa times l daily Montelukast 2022-0 Yes [id number] 10mg Take 1 [facility] (SINGULAIR) 3-13 tablet (10 Se ybold 10 MG oral 00:00: mg total) - Tablet 00 by mouth Externa tablet nightly l cloNIDine 2022-0 Yes [id number] 1{patch Apply 1 [facility] 0.2 MG/24HR 3-13 } patch Seybold transdermal 00:00: topically - PATCH 00 every 7 Externa WEEKLY days l Spironolact 2022-0 Yes [id number] 25mg Take 1 [facility] one 25 MG 3-13 tablet (25 Seyb old oral Tablet 00:00: mg total) - 00 by mouth 2 Externa times l daily Montelukast 2022-0 Yes [id number] 10mg Take 1 [facility] (SINGULAIR) 3-13 tablet (10 Se ybold 10 MG oral 00:00: mg total) - Tablet 00 by mouth Externa tablet nightly l Gabapentin, 2022-0 Yes [id number] 1{tbl} Take 1 [facility] Once-Daily, 3-13 tablet by Christina johnson (Gralise) 00:00: mouth - 300 MG oral 00 daily Externa Tablet l cloNIDine 2022-0 Yes [id number] 1{patch Apply 1 [facility] 0.2 MG/24HR 3-13 } patch Seybold transdermal 00:00: topically - PATCH 00 every 7 Externa WEEKLY days l Spironolact 2022-0 Yes [id number] 25mg Take 1 [facility] one 25 MG 3-13 tablet (25 Seyb old oral Tablet 00:00: mg total) - 00 by mouth 2 Externa times l daily Montelukast 3-0 Yes [id number] 10mg Take 1 [facility] (SINGULAIR) 3-13 tablet (10 Se ybold 10 MG oral 00:00: mg total) - Tablet 00 by mouth Externa tablet nightly l cloNIDine 3-0 Yes [id number] 1{patch Apply 1 [facility] 0.2 MG/24HR 3-13 } patch Seybold transdermal 00:00: topically - PATCH 00 every 7 Externa WEEKLY days l Carvedilol Yes 12.5mg Take 1 Dashawn sey 12.5 MG 1-31 tablet Seybold oral Tablet 00:00: (12.5 mg - 00 total) by Externa mouth 2 l times daily Carvedilol Yes 12.5mg Take 1 Dashawn sey 12.5 MG 1-31 tablet Seybold oral Tablet 00:00: (12.5 mg - 00 total) by Externa mouth 2 l times daily Carvedilol Yes 1{tbl} Take 1 Dashawn sey 12.5 MG 1-31 tablet by Seybold oral Tablet 00:00: mouth 2 - 00 times Externa daily l Carvedilol Yes 12.5mg Take 1 Dashawn sey 12.5 MG 1-31 tablet Seybold oral Tablet 00:00: (12.5 mg - 00 total) by Externa mouth 2 l times daily cloNIDine 2022- No PLACE 0.2 Ke lsey 0.2 MG/24HR 09-11 03-13 MG (1 Seybol d transdermal 00:00: 00:00 PATCH) - PATCH 00 :00 TOPICALLY Externa WEEKLY ONCE l WEEKLY Irbesartan- 0 2023- No 1{tbl} Take 1 K elsey hydroCHLORO 1-19 01-20 tablet by Se ybtavon thiazide 00:00: 05:59 mouth - 150-12.5 MG 00 :00 daily Externa oral Tablet l Rosuvastati 2021-08 Yes 10mg Take 10 mg [facility] n Calcium 2-27 by mouth Seybol d 10 MG oral 00:00: daily - Tablet 00 Externa l Levothyroxi 2021-08 Yes 1{tbl} Take 1 Ke lsey ne Sodium 0-13 tablet by Seybo ld 150 MCG 00:00: mouth - oral Tablet 00 daily Externa l Montelukast 2022- No montelukas [facility] (SINGULAIR) 05-18 t 10 mg Seyb old 10 MG oral 00:00: 00:00 tablet - Tablet 00 :00 Externa tablet l Spironolact 2022- No spironolac [facility] one 25 MG 05-18 tone 25 mg Sey bold oral Tablet 00:00: 00:00 tablet - 00 :00 Externa l morpHINE No 4mg 4 mg, Slow Un mohamud injection 4 10-08 IV Push, ity of mg 08:00: 07:04 ONCE, 1 [place] 00 :00 dose, Fri Medical 10/08/20 at Branch 0200, STAT hydralAZINE No 20mg 20 mg, Uni vers (APRESOLINE 10-08 Slow IV ity of ) injection 07:45: 07:00 [place], [place] 20 mg 00 :00 ONCE, 1 Medical dose, Fri Branch 10/08/20 at 0145, STAT
In dication: Hypertensi ve Emergency proMETHazin No 25mg 25 mg, IV Univers e 10-08 Piggyback, ity of (PHENERGAN) 07:15: 07:15 [place]CE[place] 1 [place] 25 [place] in 00 :00 dose, Fri Medica l NaCl 0.9% 10/08/20 at [facility] ch (NS) 50 mL 0115, 50 piggyback mL NaCl 0.9% Yes 1000mL at 999 Univ ers (NS) IV 2-19 mL/hr, ity of infusion 05:45: Intravenou [place] as 1,000 mL 00 s, Medical CONTINUOUS Branch , Starting Zo 10/07/20 at 2345, Until Discontinu ed, Routine proMETHazin No 25mg 25 mg, IV Univers e 10-08 Piggyback, ity of (PHENERGAN) 04:30: 04:30 [place]CE[place] 1 [place] 25 mg in 00 :00 dose, Zo Medica l NaCl 0.9% 10/07/20 at Bran ch (NS) 50 mL 2230, 50 piggyback mL FENTanyl PF No 75ug 75 mcg, Un mohamud (SUBLIMAZE 10-08 Slow IV ity o f (PF)) 04:30: 04:15 Push, [place] injection 00 :00 ONCE, 1 Medical 75 mcg dose, Zo Branch 10/07/20 at 2230, Routine iohexol 2020- No 120mL 120 mL, Unive rs (OMNIPAQUE 2-19 02-19 Intravenou it y of 350 04:15: 04:15 s, ONCE, 1 [place] BULK-150 00 :00 dose, Zo Medica l mL) 10/07/20 at [place] injection 2215, 120 mL Routine HYDROcodone 2020- No [id number] 1{tbl} Take 1 U nivers -acetaminop 10-08 tablet by it y of hen (NORCO) 00:00: 05:59 mouth [place] 10-325 mg 00 :00 every 6 Medical tablet (six) Branch hours as needed for Pain (scale 7-10) for up to 7 days. Indication s: acute pain maalox:diph 2020- No 15mL 15 mL, Uni vers enhydrAMINE 10-07-18 Oral, ity of :lidocaine 09:30: 08:20 ONCE, 1 [place] as 2 % viscous 00 :00 dose, Zo Med ical 1:1:1 10/07/20 at [place] ([facility] 0330, [facility]) Routine oral suspension 15 mL INSULIN Yes 42U inject 42 Unive rs NPL/INSULIN 2-18 Units ity of LISPRO 07:01: under the [place] (HUMALOG 41 skin 2 Medical MIX 75-25 (two) Branch SC) times daily with meals. metFORMIN Yes 1000mg Take 1,000 Univers (GLUCOPHAGE 2-18 mg by ity of ) 500 mg 07:01: mouth 2 [place] tablet 41 (two) Medical times Branch daily with meals. ALBUTEROL Yes Inhale. Unive rs SULFATE 2-18 ity of (PROAIR HFA 07:01: [place] INHALE) 41 Medical Branch amlodipine- 2020-0 Yes 1{capsu Take 1 Cap Univers benazepril 2-18 le} by mouth 2 ity of (LOTREL) 07:01: (two) [place] 5-20 mg per 41 times Medical capsule daily. Branch spironolact Yes 25mg Take 25 mg Univers one 2-18 by mouth ity of (SPIRONOLAC 07:01: daily. [place] TONE) 25 mg 41 Medical tablet Branch chlorthalid Yes 25mg Take 25 mg Univers one 2-18 by mouth ity of (HYGROTON) 07:01: daily. [place] 25 mg 41 Medical tablet Branch aspirin Yes 81mg Take 81 mg Univ ers (ADULT 2-18 by mouth ity of ASPIRIN 07:01: daily. [place] REGIMEN) 81 41 Medical mg EC Branch tablet escitalopra Yes 10mg Take 10 mg Univers m oxalate 2-18 by mouth ity of 10 mg 07:01: daily. [place] tablet 41 Medical Branch Fluticasone Yes 1{puff} Inhale 1 Univers -Salmeterol 2-18 Puff every it y of 100-50 07:01: 12 [place] mcg/dose 41 (twelve) Medical inhalation hours. Branch disk furosemide Yes 20mg Take 20 mg U nivers 20 mg 2-18 by mouth ity of tablet 07:01: daily. [place] [address] Medical Branch gabapentin Yes Take by [facility] ers ER 300 mg 2-18 mouth ity of tablet, 07:01: daily. [place] extended Medical release 24 Branch hr losartan 50 Yes 50mg Take 50 mg Univers mg tablet 2-18 by mouth ity of 07:01: daily. [place] [address] Medical Branch KCL 10 mEq Yes 8meq Take 8 mEq U nivers tablet 2-18 by mouth ity of 07:01: daily. [place] [address] Medical Branch spironolact Yes 1{tbl} Take 1 Un mohamud one-hydroch 2-18 tablet by ity of lorothiazid 07:01: mouth [place] e 50-50 mg 41 daily. Medical per tablet Branch INSULIN Yes 42U inject 42 Unive rs NPL/INSULIN 2-18 Units ity of LISPRO 07:01: under the [place] (HUMALOG 41 skin 2 Medical MIX 75-25 (two) Branch SC) times daily with meals. metFORMIN Yes 1000mg Take 1,000 Univers (GLUCOPHAGE 2-18 mg by ity of ) 500 mg 07:01: mouth 2 [place] tablet 41 (two) Medical times Branch daily with meals. ALBUTEROL Yes Inhale. Unive rs SULFATE 2-18 ity of (PROAIR HFA 07:01: [place] INHALE) 41 Medical Branch amlodipine- Yes 1{capsu Take 1 Cap Univers benazepril 2-18 le} by mouth 2 ity of (LOTREL) 07:01: (two) [place] 5-20 mg per 41 times Medical capsule daily. Branch spironolact Yes 25mg Take 25 mg Univers one 2-18 by mouth ity of (SPIRONOLAC 07:01: daily. [place] TONE) 25 mg 41 Medical tablet Branch chlorthalid Yes 25mg Take 25 mg Univers one 2-18 by mouth ity of (HYGROTON) 07:01: daily. [place] 25 mg 41 Medical tablet Branch aspirin Yes 81mg Take 81 mg Univ ers (ADULT 2-18 by mouth ity of ASPIRIN 07:01: daily. [place] REGIMEN) 81 41 Medical mg EC Branch tablet escitalopra Yes 10mg Take 10 mg Univers m oxalate 2-18 by mouth ity of 10 mg 07:01: daily. [place] tablet 41 Medical Branch Fluticasone Yes 1{puff} Inhale 1 Univers -Salmeterol 2-18 Puff every it y of 100-50 07:01: 12 [place] mcg/dose 41 (twelve) Medical inhalation hours. Branch disk furosemide Yes 20mg Take 20 mg U nivers 20 mg 2-18 by mouth ity of tablet 07:01: daily. [place] [address] Medical Branch gabapentin Yes Take by [facility] ers ER 300 mg 2-18 mouth ity of tablet, 07:01: daily. [place] extended 41 Medical release 24 Branch hr losartan 50 Yes 50mg Take 50 mg Univers mg tablet 2-18 by mouth ity of 07:01: daily. [place] [address] Medical Branch KCL 10 mEq Yes 8meq Take 8 mEq U nivers tablet 2-18 by mouth ity of 07:01: daily. [place] [address] Medical Branch spironolact Yes 1{tbl} Take 1 Un mohamud one-hydroch 2-18 tablet by ity of lorothiazid 07:01: mouth [place] e 50-50 mg 41 daily. Medical per tablet Branch INSULIN Yes 42U inject 42 Unive rs NPL/INSULIN 2-18 Units ity of LISPRO 07:01: under the [place] (HUMALOG 41 skin 2 Medical MIX 75-25 (two) Branch SC) times daily with meals. metFORMIN Yes 1000mg Take 1,000 Univers (GLUCOPHAGE 2-18 mg by ity of ) 500 mg 07:01: mouth 2 [place] tablet 41 (two) Medical times Branch daily with meals. ALBUTEROL Yes Inhale. Unive rs SULFATE 2-18 ity of (PROAIR HFA 07:01: [place] INHALE) 41 Medical Branch amlodipine- Yes 1{capsu Take 1 Cap Univers benazepril 2-18 le} by mouth 2 ity of (LOTREL) 07:01: (two) [place] 5-20 mg per 41 times Medical capsule daily. Branch spironolact Yes 25mg Take 25 mg Univers one 2-18 by mouth ity of (SPIRONOLAC 07:01: daily. [place] TONE) 25 mg 41 Medical tablet Branch chlorthalid Yes 25mg Take 25 mg Univers one 2-18 by mouth ity of (HYGROTON) 07:01: daily. [place] 25 mg 41 Medical tablet Branch aspirin Yes 81mg Take 81 mg Univ ers (ADULT 2-18 by mouth ity of ASPIRIN 07:01: daily. [place] REGIMEN) 81 41 Medical mg EC Branch tablet escitalopra Yes 10mg Take 10 mg Univers m oxalate 2-18 by mouth ity of 10 mg 07:01: daily. [place] tablet 41 Medical Branch Fluticasone Yes 1{puff} Inhale 1 Univers -Salmeterol 2-18 Puff every it y of 100-50 07:01: 12 [place] mcg/dose 41 (twelve) Medical inhalation hours. Branch disk furosemide Yes 20mg Take 20 mg U nivers 20 mg 2-18 by mouth ity of tablet 07:01: daily. [place] [address] Medical Branch gabapentin Yes Take by Univ ers ER 300 mg 2-18 mouth ity of tablet, 07:01: daily. [place] extended Medical release 24 Branch hr losartan 50 0 Yes 50mg Take 50 mg Univers mg tablet 2-18 by mouth ity of 07:01: daily. [address] Branch KCL 10 mEq Yes 8meq Take 8 mEq U nivers tablet 2-18 by mouth ity of 07:01: daily. [place] 41 Medical Branch spironolact Yes 1{tbl} Take 1 Un mohamud one-hydroch 2-18 tablet by ity of lorothiazid 07:01: mouth [place] e 50-50 mg 41 daily. Medical per tablet Branch INSULIN Yes 42U inject 42 Unive rs NPL/INSULIN 2-18 Units ity of LISPRO 01:01: under the [place] (HUMALOG 41 skin 2 Medical MIX 75-25 (two) Branch SC) times daily with meals. metFORMIN Yes 1000mg Take 1,000 Univers (GLUCOPHAGE 2-18 mg by ity of ) 500 mg 01:01: mouth 2 [place] tablet 41 (two) Medical times Branch daily with meals. ALBUTEROL Yes Inhale. Unive rs SULFATE 2-18 ity of (PROAIR HFA 01:01: [place] INHALE) 41 Medical Branch amlodipine- Yes 1{capsu Take 1 Cap Univers benazepril 2-18 le} by mouth 2 ity of (LOTREL) 01:01: (two) [place] 5-20 mg per 41 times Medical capsule daily. Branch spironolact Yes 25mg Take 25 mg [facility] one 2-18 by mouth ity of (SPIRONOLAC 01:01: daily. [place] TONE) 25 mg 41 Medical tablet Branch chlorthalid Yes 25mg Take 25 mg [facility] one 2-18 by mouth ity of (HYGROTON) 01:01: daily. [place] 25 mg 41 Medical tablet Branch aspirin Yes 81mg Take 81 mg Univ ers (ADULT 2-18 by mouth ity of ASPIRIN 01:01: daily. [place] REGIMEN) 81 41 Medical mg EC Branch tablet escitalopra Yes 10mg Take 10 mg Univers m oxalate 2-18 by mouth ity of 10 mg 01:01: daily. [place] tablet 41 Medical Branch Fluticasone Yes 1{puff} Inhale 1 Univers -Salmeterol 2-18 Puff every it y of 100-50 01:01: 12 [place] mcg/dose 41 (twelve) Medical inhalation hours. Branch disk furosemide Yes 20mg Take 20 mg U nivers 20 mg 2-18 by mouth ity of tablet 01:01: daily. [place] [address] Medical Branch gabapentin Yes Take by [facility] ers ER 300 mg 2-18 mouth ity of tablet, 01:01: daily. [place] [address] Medical release 24 Branch hr losartan 50 Yes 50mg Take 50 mg Univers mg tablet 2-18 by mouth ity of 01:01: daily. [place] [address] Medical Branch KCL 10 mEq Yes 8meq Take 8 mEq U nivers tablet 2-18 by mouth ity of 01:01: daily. [place] [address] Medical Branch spironolact Yes 1{tbl} Take 1 Un mohamud one-hydroch 2-18 tablet by ity of lorothiazid 01:01: mouth [place] e 50-50 mg 41 daily. Medical per tablet Branch pantoprazol Yes [id number] 40mg Take 1 Univers e 2-18 tablet by ity of (PROTONIX) 00:00: mouth [place] 40 mg EC 00 daily. Medical tablet Branch dicyclomine Yes [id number] 20mg Take 1 Univers 20 mg 2-18 tablet by ity of tablet 00:00: mouth [place] 00 every 6 Medical (six) Branch hours as needed for Abdominal pain. pantoprazol Yes [id number] 40mg Take 1 Univers e 2-18 tablet by ity of (PROTONIX) 00:00: mouth [place] 40 mg EC 00 daily. Medical tablet Branch dicyclomine Yes [id number] 20mg Take 1 [facility] 20 mg 2-18 tablet by ity of tablet 00:00: mouth [place] 00 every 6 Medical (six) Branch hours as needed for Abdominal pain. pantoprazol Yes [id number] 40mg Take 1 Univers e 2-18 tablet by ity of (PROTONIX) 00:00: mouth [place] 40 mg EC 00 daily. Medical tablet Branch dicyclomine Yes [id number] 20mg Take 1 [facility] 20 mg 2-18 tablet by ity of tablet 00:00: mouth [place] 00 every 6 Medical (six) Branch hours as needed for Abdominal pain. escitalopra Yes 10mg Take 10 mg Univers m oxalate 2-11 by mouth ity of 10 mg 14:26: daily. [place] tablet 58 Medical Branch Fluticasone Yes 1{puff} Inhale 1 Univers -Salmeterol 2-11 Puff every it y of 100-50 14:26: 12 [place] mcg/dose 58 (twelve) Medical inhalation hours. Branch disk furosemide Yes 20mg Take 20 mg U nivers 20 mg 2-11 by mouth ity of tablet 14:26: daily. [place] [address] Medical Branch gabapentin Yes Take by Univ ers ER 300 mg 2-11 mouth ity of tablet, 14:26: daily. [place] extended Medical release 24 Branch hr losartan 50 0 Yes 50mg Take 50 mg Univers mg tablet 2-11 by mouth ity of 14:26: daily. [place] [address] Medical Branch KCL 10 mEq Yes 8meq Take 8 mEq U nivers tablet 2-11 by mouth ity of 14:26: daily. [address] Branch spironolact Yes 1{tbl} Take 1 Un mohamud one-hydroch 2-11 tablet by ity of lorothiazid 14:26: mouth [place] e 50-50 mg 58 daily. Medical per tablet Branch aspirin Yes 81mg Take 81 mg Univ ers (ADULT 2-11 by mouth ity of ASPIRIN 14:26: daily. [place] REGIMEN) 81 58 Medical mg EC Branch tablet escitalopra Yes 10mg Take 10 mg Univers m oxalate 2-11 by mouth ity of 10 mg 14:26: daily. [place] tablet Medical Branch Fluticasone Yes 1{puff} Inhale 1 Univers -Salmeterol 2-11 Puff every it y of 100-50 14:26: 12 [place] mcg/dose 58 (twelve) Medical inhalation hours. Branch disk furosemide Yes 20mg Take 20 mg U nivers 20 mg 2-11 by mouth ity of tablet 14:26: daily. [place] [address] Medical Branch gabapentin Yes Take by Univ ers ER 300 mg 2-11 mouth ity of tablet, 14:26: daily. [place] extended Medical release 24 Branch hr losartan 50 0 Yes 50mg Take 50 mg Univers mg tablet 2-11 by mouth ity of 14:26: daily. [place] [address] Medical Branch KCL 10 mEq Yes 8meq Take 8 mEq U nivers tablet 2-11 by mouth ity of 14:26: daily. [place] 58 Medical Branch spironolact Yes 1{tbl} Take 1 Un omhamud one-hydroch 2-11 tablet by ity of lorothiazid 14:26: mouth [place] e 50-50 mg 58 daily. Medical per tablet Branch aspirin Yes 81mg Take 81 mg Univ ers (ADULT 2-11 by mouth ity of ASPIRIN 14:26: daily. [place] REGIMEN) 81 58 Medical mg EC Branch tablet INSULIN Yes 42U inject 42 Unive rs NPL/INSULIN 2-11 Units ity of LISPRO 14:20: under the [place] (HUMALOG 29 skin 2 Medical MIX 75-25 (two) Branch SC) times daily with meals. ALBUTEROL Yes Inhale. Unive rs SULFATE 2-11 ity of (PROAIR HFA 14:20: [place] INHALE) 29 Medical Branch amlodipine- Yes 1{capsu Take 1 Cap Univers benazepril 2-11 le} by mouth 2 ity of (LOTREL) 14:20: (two) [place] 5-20 mg per 29 times Medical capsule daily. Branch spironolact Yes 25mg Take 25 mg [facility] one 2-11 by mouth ity of (SPIRONOLAC 14:20: daily. [place] TONE) 25 mg 29 Medical tablet Branch chlorthalid Yes 25mg Take 25 mg [facility] one 2-11 by mouth ity of (HYGROTON) 14:20: daily. [place] 25 mg 29 Medical tablet Branch INSULIN Yes 42U inject 42 Unive rs NPL/INSULIN 2-11 Units ity of LISPRO 14:20: under the [place] (HUMALOG 29 skin 2 Medical MIX 75-25 (two) Branch SC) times daily with meals. ALBUTEROL Yes Inhale. Unive rs SULFATE 2-11 ity of (PROAIR HFA 14:20: [place] INHALE) 29 Medical Branch amlodipine- Yes 1{capsu Take 1 Cap Univers benazepril 2-11 le} by mouth 2 ity of (LOTREL) 14:20: (two) [place] 5-20 mg per 29 times Medical capsule daily. Branch spironolact Yes 25mg Take 25 mg [facility] one 2-11 by mouth ity of (SPIRONOLAC 14:20: daily. [place] TONE) 25 mg 29 Medical tablet [place] chlorthalid Yes 25mg Take 25 mg Univers one 09-30 by mouth ity of (HYGROTON) 14:20: daily. [place] 25 mg 29 Medical tablet [place] neomycin-po 0 Yes PRN, Univer s lymyxin-dex 2-11 Starting ity of amethasone 14:19: Zo [place] (MAXITROL) 09/30/20 at [facility] ical 3.5 0819, [place] mg/g-10,000 Until unit/g-0.1 Discontinu % ed, ophthalmic Routine, ointment Intra-op tetracaine Yes PRN, Univers (PONTOCAINE - Starting ity of ) 0.5 % 14:19: Zo [place] ophthalmic 00 09/30/20 at [facility] drops [address] Until Discontinu ed, Routine, Intra-op water for Yes PRN, Univers irrigation - Starting ity o f irrigation 14:18: Zo [place] solution 09/30/20 at Medic al [address] [place] [address] Until Discontinu ed, Routine, Intra-op gentamicin Yes PRN, Univers injection - Starting ity of 14:18: Zo [place] 09/30/20 at [facility] [address] Until Discontinu ed, ASHLEY, Intra-op EPINEPHrine Yes PRN, Univer s (PF) 2-11 Starting ity of 1:1,000 (1 14:17: Zo [place] mg/mL) 00 09/30/20 at [facility] (ADRENALIN 0817, [place] (PF)) Until injection Discontinu ed, Routine, Intra-op DUOVISC Yes PRN, Univers (DUOVISC 2-11 Starting ity of VISCO 14:17: Zo [place] ELASTIC) 3 09/30/20 at [facility] %-4 %(0.5 0817, [place] mL) 1 % Until (0.55 mL) Discontinu intraocular ed, injection Routine, Intra-op dexamethaso Yes PRN, Univer s ne 2-11 Starting ity of (DECADRON 14:08: Zo [place] PHOSPHATE) 00 09/30/20 at Med ical injection 0808, Branch Until Discontinu ed, Routine, Intra-op balanced Yes PRN, Univers salt soln 09-30 Starting ity of no.2 irrig. 14:07: Zo [place] (BSS) 00 09/30/20 at [facility] ophthalmic 0807, [place] solution Until Discontinu ed, Routine, Intra-op eye block Yes PRN, Univers syringe 11 09-30 Starting ity o f mL 14:00: Zo [place] 09/30/20 at [facility] 0800, Branch Until Discontinu ed, Intra-op propofoL IV 2020- No ONCE INTRA Univers infusion 09-30 PROCEDURE, ity of 13:58: 14:23 Starting [place] 00 :22 Zo [facility] 09/30/20 at Branch 0758, Until Zo 09/30/20 at 0823, Routine, Intra-op lidocaine 2020- No ONCE INTRA U nivers 1% 09-30 PROCEDURE, ity of (XYLOCAINE) 13:58: 14:23 Starting [place] 100 mg/10 00 :22 Zo [facility] mL (1 %) 09/30/20 at [facility] h injection 0758, Until Zo 09/30/20 at 0823, Routine, Intra-op albuterol 2020- No ONCE INTRA U nivers (VENTOLIN) 09-30 PROCEDURE, it y of inhaler 13:56: 14:23 Starting [place] 00 :22 Zo [facility] 09/30/20 at Branch 0756, Until Zo 09/30/20 at 0823, Routine, Intra-op midazolam 2020- No ONCE INTRA U nivers (VERSED) 09-30 PROCEDURE, ity of injection 13:53: 14:23 Starting [place] 00 :22 Zo [facility] 09/30/20 at Branch 0753, Until Zo 09/30/20 at 0823, Routine, Intra-op lactated 2020- No CONTINUOUS Un mohamud ringers IV 09-30 PRN, ity of infusion 13:25: 14:23 [place] 00 :22 Zo [facility] 09/30/20 at Branch 0725, Until Zo 09/30/20 at 0823, Routine, Intra-op mydriatic 2020- No .5mL 0.5 mL, [facility] ers #5 09-30 Right Eye, ity of ophthalmic 13:15: 13:26 ONCE, 1 [place] solution 00 :00 dose, Zo Medica l 0.5 mL 09/30/20 at Branch syringe 0715, Routine, DSU Pre-op lactated 2020- No 1000mL at 42 Unive rs ringers IV 09-3011 mL/hr, ity of infusion 13:15: 13:26 1,000 mL, [place] 1,000 mL 00 :00 IV Medical Infusion, Branch ONCE, 1 dose, Zo 09/30/20 at 0715, Routine, DSU Pre-op metFORMIN Yes 1000mg Take 1,000 Univers (GLUCOPHAGE 2-11 mg by ity of ) 500 mg 13:01: mouth 2 [place] tablet 30 (two) Medical times [place] daily with meals. metFORMIN Yes 1000mg Take 1,000 Univers (GLUCOPHAGE 2-11 mg by ity of ) 500 mg 13:01: mouth 2 [place] tablet 30 (two) Medical times Branch daily with meals. metFORMIN Yes 1000mg Take 1,000 Univers (GLUCOPHAGE 2-09 mg by ity of ) 500 mg 19:58: mouth 2 [place] tablet 09 (two) Medical times [place] daily with meals. amlodipine- Yes 1{capsu Take 1 Cap Univers benazepril 2-09 le} by mouth 2 ity of (LOTREL) 19:58: (two) [place] 5-20 mg per 09 times Medical capsule daily. Branch losartan 50 Yes 50mg Take 50 mg Univers mg tablet 2-05 by mouth ity of 21:47: daily. [address] KCL 10 mEq Yes 8meq Take 8 mEq U nivers tablet 2-05 by mouth ity of 21:47: daily. [address] spironolact Yes 1{tbl} Take 1 Un mohamud one-hydroch 2-05 tablet by ity of lorothiazid 21:47: mouth [place] e 50-50 mg 58 daily. Medical per tablet Branch aspirin Yes 81mg Take 81 mg [facility] ers (ADULT 2-05 by mouth ity of ASPIRIN 21:47: daily. [place] REGIMEN) 81 57 Medical mg EC Branch tablet escitalopra Yes 10mg Take 10 mg Univers m oxalate 2-05 by mouth ity of 10 mg 21:47: daily. [place] tablet 57 Medical Branch Fluticasone 2020-0 Yes 1{puff} Inhale 1 Univers -Salmeterol 2-05 Puff every it y of 100-50 21:47: 12 [place] mcg/dose 57 (twelve) Medical inhalation hours. Branch disk furosemide Yes 20mg Take 20 mg U nivers 20 mg 2-05 by mouth ity of tablet 21:47: daily. [place] 57 Medical Branch gabapentin Yes Take by Univ ers ER 300 mg 2-05 mouth ity of tablet, 21:47: daily. [place] extended 57 Medical release 24 Branch hr ALBUTEROL 2013-0 Yes [facility]. [facility] SUL[facility]-11 ity of (PROAIR HFA 13:13: [place] INHALE) 00 Medical Branch desloratadi 2013-0 Yes 5mg Take 1 Tab Univers ne 3-11 by mouth ity of (CLARINEX 00:00: daily. [place] REDITAB) 5 00 Medical mg Branch disintegrat ing tablet desloratadi 0 Yes 5mg Take 1 Tab Univers ne 3-11 by mouth ity of (CLARINEX 00:00: daily. [place] REDITAB) 5 00 Medical mg Branch disintegrat ing tablet desloratadi 0 Yes 5mg Take 1 Tab Univers ne 3-11 by mouth ity of (CLARINEX 00:00: daily. [place] REDITAB) 5 00 Medical mg Branch disintegrat ing tablet desloratadi 2013-0 Yes 5mg Take 1 Tab Univers ne 3-11 by mouth ity of (CLARINEX 00:00: daily. [place] REDITAB) 5 00 Medical mg Branch disintegrat ing tablet desloratadi 2013-0 Yes 5mg Take 1 Tab Univers ne 3-11 by mouth ity of (CLARINEX 00:00: daily. [place] REDITAB) 5 00 Medical mg Branch disintegrat ing tablet desloratadi 2013-0 Yes 5mg Take 1 Tab Univers ne 3-11 by mouth ity of (CLARINEX 00:00: daily. [place] REDITAB) 5 00 Medical mg Branch disintegrat ing tablet desloratadi 2014-0 Yes 5mg Take 1 Tab Univers ne 3-11 by mouth ity of (CLARINEX 00:00: daily. [place] REDITAB) 5 00 Medical mg Branch [facility]integrat ing [facility] Univer s (SINGULAIR) 1-06 ity of 10 mg 00:00: [place] tablet 00 Medical Branch [facility] Yes Univer s (SINGULAIR) 1-06 ity of 10 mg 00:00: [place] tablet [facility] Branch [facility] Yes Univer s (SINGULAIR) 1-06 ity of 10 mg 00:00: [place] tablet 00 Medical Branch [facility] Yes Univer s (SINGULAIR) 1-06 ity of 10 mg 00:00: [place] tablet 00 [facility] Branch [facility] Yes Univer s (SINGULAIR) 1-06 ity of 10 mg 00:00: [place] tablet 00 Medical Branch [facility] Yes Univer s (SINGULAIR) 1-06 ity of 10 mg 00:00: [place] tablet [facility] Yes Univer s (SINGULAIR) 1-06 ity of 10 mg 00:00: [place] tablet Medical Branch BD INSULIN Yes Univers PEN NEEDLE 8-05 ity of UF 31 X 00:00: 01/02" [place] [facility] BD INSULIN Yes Univers PEN NEEDLE 8-05 ity of UF 31 X 00:00: 01/02" [place] [facility] BD INSULIN Yes Univers PEN NEEDLE 8-05 ity of UF 31 X 00:00: 01/02" [place] [facility] BD INSULIN Yes Univers PEN NEEDLE 8-05 ity of UF 31 X 00:00: 01/02 " [place] [facility] BD INSULIN Yes Univers PEN NEEDLE 8-05 ity of UF 31 X 00:00: 01/02" [place] [facility] BD INSULIN Yes Univers PEN NEEDLE 8-05 ity of UF 31 X 00:00: 01/02" [place] [facility] BD INSULIN Yes Univers PEN NEEDLE 8-05 ity of UF 31 X 00:00: 01/02" [place] [facility] acyclovir Yes Univers (ZOVIRAX) 3-27 ity of 400 mg 00:00: [place] tablet 00 Medical Branch acyclovir Yes Univers (ZOVIRAX) 3-27 ity of 400 mg 00:00: [place] tablet 00 Medical Branch acyclovir Yes Univers (ZOVIRAX) 3-27 ity of 400 mg 00:00: [place] tablet 00 Medical Branch acyclovir Yes Univers (ZOVIRAX) 3-27 ity of 400 mg 00:00: [place] tablet 00 Medical Branch acyclovir Yes Univers (ZOVIRAX) 3-27 ity of 400 mg 00:00: [place] tablet 00 Medical Branch acyclovir Yes Univers (ZOVIRAX) 3-27 ity of 400 mg 00:00: [place] tablet 00 Medical Branch acyclovir Yes Univers (ZOVIRAX) 3-27 ity of 400 mg 00:00: [place] tablet 00 Medical Branch NEXIUM 40 Yes Univers mg capsule 2-14 ity of 00:00: [place] 00 Medical Branch NEXIUM 40 Yes Univers mg capsule 2-14 ity of 00:00: [place] 00 Medical Branch NEXIUM 40 Yes Univers mg capsule 2-14 ity of 00:00: [place] 00 Medical Branch NEXIUM 40 Yes Univers mg capsule 2-14 ity of 00:00: [place] 00 Medical Branch NEXIUM 40 Yes Univers mg capsule 2-14 ity of 00:00: [place] 00 Medical Branch NEXIUM 40 Yes Univers mg capsule 2-14 ity of 00:00: [place] 00 Medical Branch NEXIUM 40 Yes Univers mg capsule 2-14 ity of 00:00: [place] 00 Medical Branch levothyroxi Yes TAKE ONE Un mohamud ne 1-25 TABLET BY ity of (SYNTHROID) 00:00: MOUTH [place] 137 mcg 00 EVERY DAY Medical tablet Branch levothyroxi Yes TAKE ONE Un mohamud ne 1-25 TABLET BY ity of (SYNTHROID) 00:00: MOUTH [place] 137 mcg 00 EVERY DAY Medical tablet Branch levothyroxi Yes TAKE ONE Un mohamud ne 1-25 TABLET BY ity of (SYNTHROID) 00:00: MOUTH [place] 137 mcg 00 EVERY DAY Medical tablet Branch levothyroxi Yes TAKE ONE Un mohamud ne 1-25 TABLET BY ity of (SYNTHROID) 00:00: MOUTH [place] 137 mcg 00 EVERY DAY Medical tablet Branch levothyroxi Yes TAKE ONE Un mohamud ne 1-25 TABLET BY ity of (SYNTHROID) 00:00: MOUTH [place] 137 mcg 00 EVERY DAY Medical tablet Branch levothyroxi Yes TAKE ONE Un mohamud ne 1-25 TABLET BY ity of (SYNTHROID) 00:00: MOUTH [place] 137 mcg 00 EVERY DAY Medical tablet Branch levothyroxi Yes TAKE ONE Un mohamud ne 1-25 TABLET BY ity of (SYNTHROID) 00:00: MOUTH [place] 137 mcg 00 EVERY DAY Medical tablet Branch ONE TOUCH 2011-08 Yes Univers ULTRA TEST 2-28 ity of strip 00:00: [place] 00 Medical Branch ONE TOUCH 2011-08 Yes Univers ULTRA TEST 2-28 ity of strip 00:00: [place] 00 Medical Branch ONE TOUCH 2011-08 Yes Univers ULTRA TEST 2-28 ity of strip 00:00: [place] 00 Medical Branch ONE TOUCH 2011-08 Yes Univers ULTRA TEST 2-28 ity of strip 00:00: [place] 00 Medical Branch ONE TOUCH 2011-08 Yes Univers ULTRA TEST 2-28 ity of strip 00:00: [place] 00 Medical Branch ONE TOUCH 2011-08 Yes Univers ULTRA TEST 2-28 ity of strip 00:00: [place] 00 Medical Branch ONE TOUCH 2011-08 Yes Univers ULTRA TEST 2-28 ity of strip 00:00: [place] 00 Medical Branch INSULIN 2011-08 Yes 42U inject 42 Unive rs NPL/INSULIN 2-14 Units ity of LISPRO 21:31: under the [place] (HUMALOG 46 skin 2 Medical MIX 75-25 (two) Branch SC) times daily with meals. spironolact 2011-08 Yes 25mg Take 25 mg [facility] one 2-14 by mouth ity of (SPIRONOLAC 21:31: daily. [place] TONE) 25 mg 46 Medical tablet Branch chlorthalid 2011-08 Yes 25mg Take 25 mg Univers one 2-14 by mouth ity of (HYGROTON) 21:31: daily. [place] 25 mg 46 Medical tablet Branch hydrocodone Yes 10mL Take 10-15 Univers -acetaminop 4-04 mL by ity of hen 00:00: mouth [place] (LORTAB) 00 every 4 Medical 7.5-500 (four) Branch mg/15 mL(15 hours as mL) needed for solution Pain. hydrocodone Yes 10mL Take 10-15 Univers -acetaminop 4-04 mL by ity of hen 00:00: mouth [place] (LORTAB) 00 every 4 Medical 7.5-500 (four) Branch mg/15 mL(15 hours as mL) needed for solution Pain. hydrocodone Yes 10mL Take 10-15 Univers -acetaminop 4-04 mL by ity of hen 00:00: mouth [place] (LORTAB) 00 every 4 Medical 7.5-500 (four) Branch mg/15 mL(15 hours as mL) needed for solution Pain. hydrocodone Yes 10mL Take 10-15 Univers -acetaminop 4-04 mL by ity of hen 00:00: mouth [place] (LORTAB) 00 every 4 Medical 7.5-500 (four) Branch mg/15 mL(15 hours as mL) needed for solution Pain. hydrocodone Yes 10mL Take 10-15 Univers -acetaminop 4-04 mL by ity of hen 00:00: mouth [place] (LORTAB) 00 every 4 Medical 7.5-500 (four) Branch mg/15 mL(15 hours as mL) needed for solution Pain. hydrocodone Yes 10mL Take 10-15 Univers -acetaminop 4-04 mL by ity of hen 00:00: mouth [place] (LORTAB) 00 every 4 Medical 7.5-500 (four) Branch mg/15 mL(15 hours as mL) needed for solution Pain. hydrocodone Yes 10mL Take 10-15 Univers -acetaminop 4-04 mL by ity of hen 00:00: mouth [place] (LORTAB) 00 every 4 Medical 7.5-500 (four) Branch mg/15 mL(15 hours as mL) needed for solution Pain. escitalopra escitalopra No escitalopr [place] 10 [...] subcutaneou subcutaneo al s pen s pen us [facility] injector injector injector Out reac 0.5 [...] MEALS TWICE h DAILY WITH Program MEALS Immunizations Ordered Immunization Filled Immunization Date Status Commen ts Source Name Name Tdap- (Boostrix, 2022-12-18 Completed [facility] mayorga Adacel) 00:00:00 - External Tdap- (Boostrix, 2022-12-18 Completed [facility] mayorga Adacel) 00:00:00 - External Influenza Virus 2022-05-27 Completed [facility] esteban Vaccine, Quad, Egg 00:00:00 - Exte rnal Free Influenza vaccine, 2022-05-27 Completed [facility] Cornelius quadrivalent, 00:00:00 - External adjuvanted Pneumococcal Vaccine, 2022-05-27 Completed Dashawn Cornelius Conjugate 7 00:00:00 - External Pneumococcal Vaccine, 2022-05-27 Completed Dashawn sey Seybold Conjugate 20 00:00:00 - External Influenza Virus 2022-05-27 Completed [facility] Se ybold Vaccine, Quad, Egg 00:00:00 - Exte rnal Free Influenza vaccine, 2022-05-27 Completed [facility] Seybold quadrivalent, 00:00:00 - External adjuvanted Pneumococcal Vaccine, 2022-05-27 Completed Dashawn sey Seybold Conjugate 7 00:00:00 - External Pneumococcal Vaccine, 2022-05-27 Completed Dashawn sey Seybold Conjugate 20 00:00:00 - External Influenza Virus 2022-05-27 Completed [facility] Se ybold Vaccine, Quad, Egg 00:00:00 - Exte rnal Free Influenza vaccine, 2022-05-27 Completed [facility] Seybold quadrivalent, 00:00:00 - External adjuvanted Pneumococcal Vaccine, 2022-05-27 Completed Dashawn sey Seybold Conjugate 7 00:00:00 - External Pneumococcal Vaccine, 2022-05-27 Completed Dashawn sey Seybold Conjugate 20 00:00:00 - External Influenza Virus 2022-05-27 Completed [facility] Se ybold Vaccine, Quad, Egg 00:00:00 - Exte rnal Free Influenza vaccine, 2022-05-27 Completed [facility] Seybold quadrivalent, 00:00:00 - External adjuvanted Pneumococcal Vaccine, 2022-05-27 Completed Dashawn sey Seybold Conjugate 7 00:00:00 - External Pneumococcal Vaccine, 2022-05-27 Completed Dashawn sey Seybold Conjugate 20 00:00:00 - External Influenza Virus 2020-04-06 Completed [facility] Se ybold Vaccine, Unspecified 00:00:00 - Ex ternal Formulation Influenza Virus 2020-04-06 Completed [facility] Se ybold Vaccine, Unspecified 00:00:00 - Ex ternal Formulation Influenza Virus 2020-04-06 Completed [facility] Se ybold Vaccine, Unspecified 00:00:00 - Ex ternal Formulation Influenza Virus 2020-04-06 Completed [facility] Se ybold Vaccine, Unspecified 00:00:00 - Ex ternal Formulation Influenza, Seasonal, 2019-05-08 Completed Muna ey Seybold Injectable, 00:00:00 - External Preservative Free Influenza, Seasonal, 2019-05-08 Completed [place] ey Seybold Injectable 00:00:00 - External Influenza Virus 2019-05-08 Completed Chapis Se ybold Vaccine, No Preserv, 00:00:00 - Ex ternal age 6 months and up Influenza, Seasonal, 2019-05-08 Completed [place] ey Seybold Injectable, 00:00:00 - External Preservative Free Influenza, Seasonal, 2019-05-08 Completed [place] ey Seybold Injectable 00:00:00 - External Influenza Virus 2019-05-08 Completed [facility] Se ybold Vaccine, No Preserv, 00:00:00 - Ex ternal age 6 months and up Influenza, Seasonal, 2019-05-08 Completed [place] ey Seybold Injectable, 00:00:00 - External Preservative Free Influenza, Seasonal, 2019-05-08 Completed [place] ey Seybold Injectable 00:00:00 - External Influenza Virus 2019-05-08 Completed Chapis Se ybold Vaccine, No Preserv, 00:00:00 - Ex ternal age 6 months and up Influenza, Seasonal, 2019-05-08 Completed M[place] ey Seybold Injectable, 00:00:00 - External Preservative Free Influenza, Seasonal, 2019-05-08 Completed [place] ey Seybold Injectable 00:00:00 - External Influenza Virus 2019-05-08 Completed Chapis Se ybold Vaccine, No Preserv, 00:00:00 - Ex ternal age 6 months and up Shingles SQ 2018-07-08 Completed Chapis Seybol d (Zostavax) 00:00:00 - External Shingles SQ 2018-07-08 Completed Chapis Seybol d (Zostavax) 00:00:00 - External Shingles SQ 2018-07-08 Completed Chapis Seybol d (Zostavax) 00:00:00 - External Shingles SQ 2018-07-08 Completed Chapis Seybol d (Zostavax) 00:00:00 - External Influenza Virus 2015-07-14 Completed Chapis Se ybold Vaccine, High Dose, 00:00:00 - Ext ernal Age 65 And Up Pneumococcal Vaccine, 2015-07-14 Completed Dashawn sey Seybold Polysaccharide 00:00:00 - External Influenza Virus 2015-07-14 Completed Chapis Se ybold Vaccine, High Dose, 00:00:00 - Ext ernal Age 65 And Up Pneumococcal Vaccine, 2015-07-14 Completed Dashawn sey Seybold Polysaccharide 00:00:00 - External Influenza Virus 2015-07-14 Completed Chapis Cano ybold Vaccine, High Dose, 00:00:00 - Ext ernal Age 65 And Up Pneumococcal Vaccine, 2015-07-14 Completed Dashawn skinner Seybold Polysaccharide 00:00:00 - External Influenza Virus 2015-07-14 Completed Chapis Cano ybold Vaccine, High Dose, 00:00:00 - Ext ernal Age 65 And Up Pneumococcal Vaccine, 2015-07-14 Completed Dashawn skinner Seybold Polysaccharide 00:00:00 - External Influenza Virus 2013-07-23 Completed Chapis Cano ybold Vaccine, High Dose, 00:00:00 - Ext ernal Age 65 And Up Influenza Virus 2013-07-23 Completed Chapis Cano ybold Vaccine, High Dose, 00:00:00 - Ext ernal Age 65 And Up Influenza Virus 2013-07-23 Completed Chapis Cano ybold Vaccine, High Dose, 00:00:00 - Ext ernal Age 65 And Up Influenza Virus 2013-07-23 Completed Chapis Cano ybold Vaccine, High Dose, 00:00:00 - Ext ernal Age 65 And Up Vital Signs Vital Name Observation Time Observation Value Comments Source Systolic blood 2022-12-18 18:39:00 154 mm[Hg] Chapis Canoybold - pressure External Diastolic blood 2022-12-18 18:39:00 82 mm[Hg] Darnell Cornelius - pressure External Heart rate 2022-12-18 18:39:00 66 /min Chapis Mady heatherbohima - External Body temperature 2022-12-18 18:39:00 36.56 Mariaa Muna romero Seybold - External Respiratory rate 2022-12-18 18:39:00 14 /min Munamady romero Seybold - External Body height 2022-12-18 18:39:00 157.5 cm Chapis Mady heatherbohima - External Body weight 2022-12-18 18:39:00 124.739 kg Chapis Mady heatherbohima - External BMI 2022-12-18 18:39:00 50.30 kg/m2 Chapis Mady heatherbohima - External Oxygen saturation in 2022-12-18 18:39:00 95 /min Chapis Cornelius - Arterial blood by External Pulse oximetry Systolic blood 2022-12-05 18:38:00 158 mm[Hg] Chapis Seybold - pressure External Diastolic blood 2022-12-05 18:38:00 90 mm[Hg] Dashawnse y Seybold - pressure External Heart rate 2022-12-05 18:38:00 62 /min Chapis Belle eybold - External Body temperature 2022-12-05 18:38:00 37.06 Mariaa Muna ey Seybold - External Respiratory rate 2022-12-05 18:38:00 16 /min Muna ey Seybold - External Body height 2022-12-05 18:38:00 157.5 cm Chapis Belle eybold - External Body weight 2022-12-05 18:38:00 124.286 kg Chapis Belle eybold - External BMI 2022-12-05 18:38:00 50.12 kg/m2 Chapis Belle eybold - External Oxygen saturation in 2022-12-05 18:38:00 98 /min Chapis Seybold - Arterial blood by External Pulse oximetry Systolic blood 2022-10-30 18:34:00 152 mm[Hg] Chapis Seybold - pressure External Diastolic blood 2022-10-30 18:34:00 86 mm[Hg] Darnell y Seybold - pressure External Heart rate 2022-10-30 18:34:00 63 /min Chapis Belle eybold - External Body temperature 2022-10-30 18:34:00 36.44 Mariaa Muna romero Seybold - External Respiratory rate 2022-10-30 18:34:00 14 /min Muna romero Seybold - External Body height 2022-10-30 18:34:00 157.5 cm Chapis Belle eybold - External Body weight 2022-10-30 18:34:00 126.1 kg Chapis Belle eybold - External BMI 2022-10-30 18:34:00 50.85 kg/m2 Chapis Belle eybold - External Oxygen saturation in 2022-10-30 18:34:00 96 /min Chapis Canoybtavon - Arterial blood by External Pulse oximetry BP Diastolic 2020-12-07 00:00:00 95 mm[Hg] Cassandra a [facility] Height 2020-12-07 00:00:00 62 [in_i] [place] [facility] BMI (Body Mass 2020-12-07 00:00:00 53.4 kg/m2 [place] taste tester Index) [facility] BP Systolic 2020-12-07 00:00:00 169 mm[Hg] [place] [facility] Body Weight 2020-12-07 00:00:00 292 [lb_av] [place] [facility] Systolic blood 2020-10-08 09:00:00 184 mm[Hg] Univer sity of pressure [facility] Diastolic blood 2020-10-08 09:00:00 68 mm[Hg] Unive rsity of pressure [facility] Heart rate 2020-10-08 09:00:00 73 /min [facility] Respiratory rate 2020-10-08 09:00:00 16 /min Univ ersity of [facility] Oxygen saturation in 2020-10-08 09:00:00 97 /min University of Arterial blood by [facility] Pulse oximetry Branch Body temperature 2020-10-08 03:15:00 37.44 Mariaa [facility] ersity of [facility] Body height 2020-10-08 03:15:00 160 cm Univers ty [facility] Body weight 2020-10-08 03:15:[address] [facility] Branch BMI 2020-10-08 03:15:00 53.14 kg/m2 [facility] Branch Systolic blood 2020-10-08 09:00:00 184 mm[Hg] Univer sity of pressure [facility] Diastolic blood 2020-10-08 09:00:00 68 mm[Hg] Unive rsity of pressure [facility] Heart rate 2020-10-08 09:00:00 73 /min [facility] Respiratory rate 2020-10-08 09:00:00 16 /min Univ ersity [facility] Oxygen saturation in 2020-10-08 09:00:00 97 /min University of Arterial blood by [place] [employer] [place] Pulse oximetry Branch Body temperature 2020-10-08 03:15:00 37.44 Mariaa Univ ersity [facility] Body height 2020-10-08 03:15:00 160 cm [facility] Body weight 2020-10-08 03:15:00 136.079 kg [facility] BMI 2020-10-08 03:15:00 53.14 kg/m2 [facility] Systolic blood 2020-10-07 11:00:00 198 mm[Hg] Univer sity of pressure [facility] Diastolic blood 2020-10-07 11:00:00 89 mm[Hg] Unive rsity of pressure [facility] Heart rate 2020-10-07 11:00:00 70 /min [facility] Respiratory rate 2020-10-07 11:00:00 13 /min Univ [facility] Oxygen saturation in 2020-10-07 11:00:00 99 /min University of Arterial blood by [facility] [place] Pulse oximetry Branch Body temperature 2020-10-07 06:50:00 37.39 Mariaa Univ ersity [facility] Body weight 2020-10-07 06:50:00 136.079 kg [facility] BMI 2020-10-07 06:50:00 54.87 kg/m2 [facility] Systolic blood 2020-10-07 11:00:00 198 mm[Hg] Univer sity of pressure [facility] Diastolic blood 2020-10-07 11:00:00 89 mm[Hg] Unive rsity of pressure [facility] Heart rate 2020-10-07 11:00:00 70 /min [facility] Respiratory rate 2020-10-07 11:00:00 13 /min Univ [facility] Oxygen saturation in 2020-10-07 11:00:00 99 /min University of Arterial blood by [place] [facility] [place] Pulse oximetry Branch Body temperature 2020-10-07 06:50:00 37.39 Mariaa Univ [facility] Body weight 2020-10-07 06:50:00 136.079 kg [facility] BMI 2020-10-07 06:50:00 54.87 kg/m2 [facility] Systolic blood 2020-09-30 14:45:00 225 mm[Hg] Univer sity of pressure [facility] Diastolic blood 2020-09-30 14:45:00 97 mm[Hg] Unive rsity of pressure [facility] Heart rate 2020-09-30 14:45:00 63 /min [facility] Body temperature 2020-09-30 14:45:00 36.67 Mariaa Univ [facility] Respiratory rate 2020-09-30 14:45:00 18 /min Univ [facility] Oxygen saturation in 2020-09-30 14:45:00 97 /min University of Arterial blood by [facility] Pulse oximetry Branch Body height 2020-09-28 19:45:00 157.5 cm [facility] Body weight 2020-09-28 19:45:00 136.079 kg [facility] BMI 2020-09-28 19:45:00 54.87 kg/m2 [facility] Systolic blood 2020-09-30 14:45:00 225 mm[Hg] Univer sity of pressure [facility] Diastolic blood 2020-09-30 14:45:00 97 mm[Hg] Unive rsity of pressure [facility] Heart rate 2020-09-30 14:45:00 63 /min [facility] Body temperature 2020-09-30 14:45:00 36.67 Mariaa Univ [facility] Respiratory rate 2020-09-30 14:45:00 18 /min Univ [facility] Oxygen saturation in 2020-09-30 14:45:00 97 /min University of Arterial blood by [facility] Pulse oximetry Branch Body height 2020-09-28 19:45:00 157.5 cm [facility] Body weight 2020-09-28 19:45:00 136.079 kg [facility] BMI 2020-09-28 19:45:00 54.87 kg/m2 [facility] Respiratory rate 2020-09-30 14:21:00 25 /min Univ [facility] Respiratory rate 2020-09-30 14:21:00 25 /min Univ [facility] Procedures Procedure Date / Time Performing Source Performed Clinician AUTHORIZATION FOR RELEASE OF 2022-10-03 Doctor Unassigned, [facility] PHI 06:01:00 [facility] MAMMO, screening, digital, 2020-12-07 [place] Scientologist bilateral 00:00:00 Health Outreach Program URINALYSIS 2020-10-08 Mago Cobb [facility] ex 06:13:[address] ABDOMEN PELVIS W CONTRAST 2020-10-08 Mago Cobb [facility] 04:13:45 Medical Branch LIPASE 2020-10-08 Mago Cobb [facility] ex 03:39:00 Medical Branch TROPONIN I 2020-10-08 Mago Cobb [facility] ex 03:39:00 Medical Branch COMP. METABOLIC PANEL (07227) 2020-10-08 Mago Cobb [facility] 03:39:00 Medical Branch CBC WITH DIFF 2020-10-08 Mago Cobb [facility] ex 03:39:00 Medical Branch COVID-19 (ID NOW RAPID 2020-10-08 Mago Cobb [facility] TESTING) 03:39:00 Medical Branch CONSENT/REFUSAL FOR DIAGNOSIS 2020-10-08 Doctor Unassigned, [facility] AND TREATMENT 02:53:27 [facility] TROPONIN I 2020-10-07 Mago Cobb [facility] ex 10:05:00 Medical Branch URINALYSIS 2020-10-07 Mago Cobb [facility] ex 08:06:00 Medical Branch XR CHEST 1 VW 2020-10-07 Mago Cobb [facility] ex 07:56:15 Medical Branch LIPASE 2020-10-07 Mago Cobb [facility] ex 07:38:00 Medical Branch TROPONIN I 2020-10-07 Mago Cobb [facility] ex 07:38:00 Medical Branch COMP. METABOLIC PANEL ([id number]) 2020-10-07 Mago Cobb [facility] 07:38:00 Medical Branch CBC WITH DIFF 2020-10-07 Mago Cobb [facility] ex 07:38:00 Medical Branch NOTICE OF PRIVACY PRACTICES 2020-10-07 Doctor Unassigned, [facility] 06:41:28 [facility] PHACOEMULSIFICATION OF 2020-09-30 Marco Bronson [facility] CATARACT WITH INTRAOCULAR 13:48:00 Brian Kelly [facility] LENS IMPLANT POCT GLUCOSE(AGE >30DAYS) 2020-09-30 Eliazar Nicolas [facility] 13:36:00 Medical Branch POCT GLUCOSE (AUTOMATED) 2020-09-30 Miguel Lara [facility] 13:31:00 [facility] DAY SURGERY - ADC 2020-09-30 Doctor Unassigned, [facility] 06:01:00 [facility] COVID-19 (ID NOW RAPID 2020-09-29 Marco Bronson [facility] TESTING) 15:54:00 [facility] section [facility] Thyroidectomy [facility] Varicose phlebectomy [facility] Plan of Care Planned Activity Planned Date Details Comments Source Future Scheduled 2022-12-27 COVID-19 VACCINE (2 - [facility] Test 11:36:12 Moderna series) [code = COVID-19 VACCINE (2 - Moderna series)] Future Scheduled 2022-12-27 INFLUENZA VACCINE Method [facility] Test 11:36:12 [code = INFLUENZA VACCINE] Future Scheduled 2022-12-27 Screening for [facility] Test 11:36:12 malignant neoplasm of cervix (procedure) [code = 077729986] Future Scheduled 2022-12-27 BREAST CANCER [facility] Test 11:36:12 SCREENING [code = BREAST CANCER SCREENING] Future Scheduled 2022-12-27 COLONOSCOPY SCREENING [facility] Test 11:36:12 [code = COLONOSCOPY SCREENING] Future Scheduled 2022-12-27 SHINGLES VACCINES (2 Met [facility] Test 11:36:12 of 3) [code = SHINGLES VACCINES (2 of 3)] Diagnostic Test 2020-12-07 bacterial vaginosis [place] Pending 00:00:00 panel, vaginal [code [facility] = bacterial vaginosis Outrea [facility] Program panel, vaginal] Diagnostic Test 2020-12-07 pap, IG + HPV, [place] Pending 00:00:00 cervical [code = pap, [facility] IG + HPV, cervical] Outreach Program Future Scheduled COVID-19 VACCINE (1) Met [facility] Hospital Test [code = COVID-19 VACCINE (1)] Future Scheduled Screening for [facility] Test malignant neoplasm of cervix (procedure) [code = 155619555] Future Scheduled BREAST CANCER [facility] Test SCREENING [code = BREAST CANCER SCREENING] Future Scheduled COLONOSCOPY SCREENING [facility] Hospital Test [code = COLONOSCOPY SCREENING] Future Scheduled SH[facility]LES VACCINES [facility] (#1) [code = SHINGLES VACCINES (#1)] Future Scheduled INFLUENZA VACCINE [facility] Test [code = INFLUENZA VACCINE] Encounters Start End Encounter Admission Attending Care Care Encounter Source Date/Time Date/Time Type Type Clinicians Facility Department ID 2021-06-19 Outpatient Nilson LARA, [facility] OPH [id number] Univers 12:22:23 MIGUEL [facility] 2021-06-19 Emergency X [facility] [id number] Univers 00:01:29 [facility] 2021-06-18 Outpatient Nilson LARA [facility] SWETA [id number] Univers 21:15:39 MIGUEL [facility] 2023-01-23 2023-01-23 Outpatient CHAPIS MALIK [id number] Chapis 14:15:00 14:15:00 ROBERTO Seybol d 2023-01-17 2023-01-17 Outpatient CHAPIS MCMAHON [id number] Chapis 10:15:00 10:15:00 POLA Seybol d 2022-12-28 2022-12-28 Outpatient CHAPIS AZUL [id number] Chapis 10:00:00 10:00:00 JINU Seybol d 2022-12-27 2022-12-27 Outpatient CHAPIS MCMAHON [id number] Chapis 00:00:00 00:00:00 POLA Seybol d 2022-12-25 2022-12-25 Outpatient CHAPIS AZUL [id number] Chapis 00:00:00 00:00:00 JINU Seybol d 2022-12-25 2022-12-25 Outpatient CHAPIS MCMAHON [id number] Chapis 00:00:00 00:00:00 POLA Seybol d 2022-12-24 2022-12-24 Outpatient CHAPIS MCMAHON [id number] Chapis 00:00:00 00:00:00 POLA Seybol d 2022-12-21 2022-12-21 Outpatient FB, TECH CHAPIS ANN [id number] Chapis 14:00:00 14:00:00 Seybol d 2022-12-20 2022-12-20 Outpatient JIMMIECHAPIS [id number] Chapis 00:00:00 00:00:00 JEAN CARLOS Seybo ld 2022-12-18 2022-12-18 Outpatient PREZASCHAPIS [id number] Chapis 13:45:00 13:45:00 POLA Seybol d 2022-12-11 2022-12-11 Outpatient PREZASCHAPIS [id number] Chapis 00:00:00 00:00:00 POLA Seybol d 2022-12-11 2022-12-11 Outpatient JIMMIE, CHAPIS ANN [id number] Chapis 00:00:00 00:00:00 JEAN CARLOS Seybo ld 2022-12-06 2022-12-06 Outpatient PREZASCHAPIS [id number] Chapis 00:00:00 00:00:00 POLA Seybol d 2022-12-06 2022-12-06 Outpatient PREZASCHAPIS [id number] Chapis 00:00:00 00:00:00 POLA Seybol d 2022-12-05 2022-12-05 Outpatient JIMMIECHAPIS [id number] Chapis 14:00:00 14:00:00 JEAN CARLOS Seybo ld 2022-12-05 2022-12-05 Outpatient MYKELSEYONL CHAPIS ANN [id number] Chapis 00:00:00 00:00:00 MD RAJ Seybol d 2022-12-05 2022-12-05 Outpatient CHAPIS NAVARRO [id number] Chapis 00:00:00 00:00:00 SYLVIA Seybol d 2022-12-01 2022-12-01 Outpatient CHAPIS AZUL [id number] Chapis 10:30:00 10:30:00 JINU Seybol d 2022-11-22 2022-11-22 Outpatient JIMMIE, CHAPIS ANN [id number] Chapis 10:00:00 10:00:00 JEAN CARLOS Seybo ld 2022-11-21 2022-11-21 Outpatient CHAPIS ANN [id number] Chapis 13:45:00 13:45:00 Seybol d 2022-11-20 2022-11-20 Outpatient PREZAS, CHAPIS ANN [id number] Chapis 13:45:00 13:45:00 POLA Seybol d 2022-11-20 2022-11-20 Outpatient PREZAS, CHAPIS ANN [id number] Chapis 00:00:00 00:00:00 POLA Seybol d 2022-11-14 2022-11-14 Outpatient PREZAS, CHAPIS ANN [id number] Chapis 00:00:00 00:00:00 POLA Seybol d 2022-11-13 2022-11-13 Outpatient LATHA, CHAPIS ANN [id number] Chapis 10:00:00 10:00:00 JINU Seybol d 2022-11-13 2022-11-13 Outpatient TRED45 CHAPIS ANN [id number] Chapis 10:00:00 10:00:00 Seybol d 2022-11-10 2022-11-10 Outpatient LAB90 CHAPIS ANN [id number] Chapis 11:05:00 11:05:00 Seybol d 2022-11-09 2022-11-09 Outpatient PREZAS, CHAPIS ANN [id number] Chapis 00:00:00 00:00:00 POLA Seybol d 2022-10-30 2022-10-30 Outpatient PREZAS, CHAPIS ANN [id number] Chapis 13:45:00 13:45:00 POLA Seybol d 2022-10-26 2022-10-26 Outpatient PREZAS, CHAPIS ANN [id number] Chapis 00:00:00 00:00:00 POLA Seybol d 2022-10-03 2022-10-03 Orders Doctor JONES [id number] Univers 00:00:00 00:00:00 Only Unassigned, ELIESER 350.1.13.10 ity [facility] 4.2.7.2.686 [place] [id number] [facility] 009 Branch 2022-01-24 2022-01-24 Outpatient Nilson TANIYA, [facility] [id number] Univers 14:30:00 14:30:00 ENRIKE [facility] 2021-03-02 2021-03-02 Outpatient ELY_KOKO [facility] [id number] [place] 02:42:00 02:42:00 [id number] [facility] 2020-12-08 2020-12-08 Outpatient Nilson HAMEEDOP, [facility] [id number] Univers 10:45:00 10:45:00 MIGUEL [facility] 2020-12-07 2020-12-07 Outpatient ELY[facility]KOKO [facility] [id number] [place] 01:00:00 01:00:00 [id number] [facility] 2020-12-07 2020-12-07 Koko [facility] [id number] M [place] 00:00:00 00:00:00 Kendell Henning MD: Scientologist [facility] [address] [facility] jordan N, [place] [facility] [place] [id number] h , Ph. Program 2020-11-18 2020-11-18 Outpatient ELY_KOKO [facility] [id number] [place] 11:13:00 11:13:00 [id number] [facility] 2020-11-17 2020-11-17 Outpatient ELY_KOKO [facility] [id number] [place] 04:26:00 04:26:00 [id number] [facility] 2020-10-07 2020-10-08 Emergency [facility] [id number] 21:06:00 03:35:00 Mago Case 350.1.13.10 ity [facility] 4.2.7.2.686 [facility] [id number] [facility] 084 Branch 2020-10-07 2020-10-08 Emergency [facility] [id number] 21:06:00 03:35:00 Mago Case 350.1.13.10 [place] 4.2.7.2.686 [place] [id number] 084 2020-10-07 2020-10-07 Emergency [facility] [id number] Univers 01:01:00 06:15:00 Mago Case 350.1.13.10 ity of [place] [id number] [place] [address] Branch 2020-10-07 2020-10-07 Emergency [facility] [id number] Univers 01:01:00 06:15:00 MAGO ity of [facility] 2020-10-07 2020-10-07 [facility] [id number] 01:01:00 06:15:00 Mago Patiñoton 350.1.13.10 [place] 4.2.7.2.686 [place] [id number] 2020-09-30 2020-09-30 [facility] [id number] Univers 07:01:00 09:00:00 Encounter Miguel Manpreet 350.1.13.10 ity [place] [id number] [address] 2020-09-30 2020-09-30 [facility] [id number] 07:01:00 09:00:00 Encounter Miguel Manpreet 350.1.13.10 [place] 4.2.7.2.686 Surgical [id number] [place] [address] 2020-09-30 2020-09-30 Anesthesia Eliazar Nicolas [facility] [id number] Univers 07:53:00 08:23:00 Michael Ryan 350.1.13.10 ity [place] [id number] [facility] 020 Branch 2020-09-30 2020-09-30 Anesthesia Eliazar Nicolas [facility] [id number] 07:53:00 08:23:00 Michael Ryan 350.1.13.10 [place] 4.2.7.2.686 Surgical [id number] [place] 020 2020-09-30 2020-09-30 Orders Doctor JONES [id number] Univers 00:00:00 00:00:00 Only Unassigned, ELIESER 350.1.13.10 ity of [place] [facility] 4.2.7.2.686 [place] [id number] [facility] [address] [place] 2020-09-30 2020-09-30 Orders Doctor JONES 1.2.840.114 [id number] 00:00:00 00:00:00 Only Unassigned, ELIESER 350.1.13.10 [place] [facility] 4.2.7.2.686 [id number] 009 2020-09-29 2020-09-29 Laboratory Only, [facility] Test [facility] 1.2.840. 114 [id number] Univers 09:40:08 09:55:08 Only Miguel Lara 350.1.1 3.10 ity of [place] 4.2.7.2.686 [facility] [id number] [facility] [address] 2020-09-29 2020-09-29 Laboratory Only, [facility] [id number] 09:40:08 09:55:08 Only Jolanta Case 350.1.13.10 [place] 4.2.7.2.686 [place] [id number] 353 2020-09-29 2020-09-29 Outpatient Nilson LARA [facility] [id number] Univers 09:15:00 09:15:00 MIGUEL murphy [facility] 2020-09-21 2020-09-21 Outpatient Nilson LARA [facility] [id number] Univers 11:15:00 11:15:00 MIGUEL murphy [facility] 2020-07-07 2020-07-07 Outpatient Michael DOMINGUEZ [facility] [place] 02:18:00 02:18:00 [id number] [facility] 2018-07-08 2018-07-08 Ambulatory nullFlavo MNA [id number] Memoria 16:00:00 16:00:00 Pre-Reg r Neurology 02 salvador Wilkins Bruce 2018-07-08 2018-07-08 Outpatient IE MARYAM [id number] Memoria 10:00:00 10:00:00 02 salvador Bruce 2018-07-08 2018-07-08 Outpatient Tel[facility] [id number] 10:00:00 10:00:00 Raz 02 Chidi 2018-04-10 2018-04-10 Outpatient MHIE IE [id number] Memoria 16:00:00 16:00:00 01 salvador Bruce 2018-03-06 2018-03-06 Outpatient MHIE IE [id number] Memoria 13:30:00 13:30:00 00 salvador Bruce Results Test Description Test Time Test Comments Results Result Comments Source URINALYSIS 2020-10-08 07:39:00 Test Item Value Reference Range Interpretation Comme nts APPEARANCE (test code = Clear Clear 2080639222) COLOR (test code = 8385370271) Straw Yellow A PH (test code = 4259896743) 4.8-8.0 SP GRAVITY (test code = 1.003-1.030 8555066314) GLU U QUAL (test code = Normal Normal 2044682444) BLOOD (test code = 6791286946) Negative Negative KETONES (test code = 0593100723) Negative Negative PROTEIN (test code = 2887-8) 100 mg/dL Negative A UROBILIN (test code = Normal Normal 8717843244) BILIRUBIN (test code = Negative Negative 4229609754) NITRITE (test code = 8557329850) Negative Negative LEUK ARVIN (test code = Negative Negative 0036288269) RBC/HPF (test code = 4441262235) See_Comment [Automated message] The system which ge nerated this result transmit erika reference range: 0 - 3 HP F. The reference range was not used to interpret th is result as normal/abnormal . WBC/HPF (test code = 4216244835) See_Comment [Automated message] The system which ge nerated this result transmit erika reference range: 0 - 5 HP F. The reference range was not used to interpret th is result as normal/abnormal . BACTERIA (test code = Few Negative A 8216692181) SQ EPITH (test code = HPF 1840394868) TRANS EPI (test code = <1 See_Comment [Aut omated message] The 0064035581) system which [employer] nerated this result transmit erika reference range: <=1 HPF. The reference range was not u sed to interpret this result as normal/abnormal . Lab Interpretation (test code = Abnormal 53732-0) [facility] [id number] 04:45:[address] findings to account for patient's symptoms. Hepatomegaly and steatosis. Preliminary Report Dictated by Resident: Raleigh Albert MD., have reviewed this study and agree withthe above report.CT ABDOMEN PELVIS W CONTRAST HISTORY: 60 years-old; Female; Abdominal pain, acute, nonlocalized COMPARISON: None TECHNIQUE AND FINDINGS: Contiguous axial imaging from the level of the lungbases through the pubic symphysis was performed after the uncomplicatedadministration of 120 cc of intravenous Omnipaque contrast. Coronal andsagittal reconstructions were o btained. ?Auto mA and/or iterativereconstruction were used to reduce radiation dose. FINDINGS: LOWERTHORAX: The lung bases are clear. No cardiomegaly. LIVER: The liver is enlarged measuring 20 cm craniocaudally. Hepaticparenchyma is diffusely low attenuated. Liver contour is otherwiseunremarkable with no focal mass. GALLBLADDER AND BILIARY TREE: No intra or extrahepatic biliary ductaldilation. No gallbladder wall thickening. SPLEEN: Unremarkable. PANCREAS: No ductal dilation or masses. ADRENAL GLANDS: Nodular thickening of the left adrenal gland is noted. KIDNEYS: Innumerable bilateral cortical low attenuated structures with thelarger ones demonstrating central density of simple fluid measuring up to2.8 cm in the right upper pole (2:38). The smaller ones are difficult tofurther characterize. There is no hydronephrosis or stone. PERITONEUM AND RETROPERITONEUM: No free air or fluid collection. LYMPH NODES: No intra-abdominal or pelvic lymph node enlargement. GI TRACT: No dilation or bowel wall thickening. Appendix is normal (2:91). PELVIS/BLADDER: Bladder is fully distended with no wall thickening. Uterusis absent. VESSELS: Unremarkable. BONES AND SOFT TISSUES: No suspicious lytic or scleroticbony lesions.Moderate lower lumbar facet arthropathies are seen to Lines/Tubes/Devices/Hardware: None [facility], Radiant Results Inft User - 10/07/2020 10:46 PM CSTCT ABDOMEN PELVIS W CONTRASTHISTORY: 60 years-old; Female; Abdominal pain, acute, nonlocalized COMPARISON: NoneTECHNIQUE AND FINDINGS: Contiguous axial imaging from the level of the lungbases through the pubic symphysis was performed after the u ncomplicatedadministration of 120 cc of intravenous Omnipaque contrast. Coronal andsagittal reconstructions were obtained. Auto mA and/or iterativereconstruction were used to reduce radiation dose.FINDINGS:LOWER THORAX: The lung bases are clear. No cardiomegaly.LIVER: The liver is enlarged measuring 20 cm craniocaudally. Hepaticparenchyma is diffusely low attenuated. Liver contour is otherwiseunremarkable with no focal mass.GALLBLADDER AND BILIARY TREE: No intra or extrahepatic biliary ductaldilation. No gallbladder wall thickening.SPLEEN: Unremarkable.PANCREAS: No ductal dilation or masses.ADRENALGLANDS: Nodular thickening of the left adrenal gland is noted.KIDNEYS: Innumerable bilateral cortical low attenuated structures with thelarger ones demonstrating central density of simple fluid measuring up to2.8 cm in the right upper pole (2:38). The smaller ones are difficult tofurther characterize.There is no hydronephrosis or stone.PERITONEUM AND RETROPERITONEUM: No free air or fluid collection.LYMPH NODES: No intra-abdominal or pelvic lymph node enlargement.GI TRACT: No dilation or bowel wall thickening. Appendix is normal (2:91).PELVIS/BLADDER: Bladder is fully distended with no wall thickeni ng. Uterusis absent.VESSELS: Unremarkable.BONES AND SOFT TISSUES: No suspicious lytic or sclerotic bony lesions.Moderate lower lumbar facet arthropathies are seen toLines/Tubes/Devices/Hardware: NoneIMPRESSIONNo acute abdominopelvic CT findings to account for patient's symptoms.Hepatomegaly and steatos is.Preliminary Report Dictated by Resident: Raleigh Acosta MD., have reviewed this study and agree withthe above report.[facility] [id number] 04:13:00 Test Item Value Reference Range Interpretation Comments TROPONIN I (test 0.040 ng/mL See_Comment H [Automated code = 0457883638) message] The system which generated this result transmitted reference range : <=0.034. The reference range was not used to interpret this result as normal/abnormal . ANDREW (test code = Equal or Less than ANDREW) 0.034 ng/ml---Normal ?Note: Cardiac troponin begins to rise 3-4 hours after the onset of ischemia. Repeat in 4-6 hours if the sample was drawn within 3-4 hours of the onset of the symptom and found normal. Between 0.035 and 0.120 ng/mL--- Borderline. Questionable myocardial injury or necrosis ? ?Note: Serial measurement may be necessary to confirm or exclude the diagnosis of myocardial injury or necrosis; Clinical correlation (symptoms, EKGs, imaging studies, and others) required; Repeat in 4-6 hours if clinically indicated. ? Equal or Higher than 0.121 ng/mL---Abnormal. Myocardial Injury or Necrosis Likely ? Biotin has been reported to cause a negative bias, interpret results relative to patient's use of biotin. ? Lab Interpretation Abnormal (test code = 37834-6) [facility]ID [facility]2020-10-08 04:03:00 Test Item Value Reference Range Interpretation Comments SARS-CoV-2 Rapid ID NOW Not Detected Not Detected (test code = 34313-8) ANDREW (test code = ANDREW) ID NOW COVID-19 Assay is an isothermal nucleic acid amplification test intended for the qualitative detection of nucleic acid from SARS-CoV-2 viral RNA in nasopharyngeal (REAL ESTATE MANAGEMENT SPECIALIST) specimens. It is used under Emergency Use Authorization (EUA) by FDA. The limit of detection (LOD) of the assay is 125 Genome Equivalents/mL. A positive result is indicative of the presence of SARS-CoV-2 RNA. ?Clinical correlation with patient history and other diagnostic information is necessary to determine patient infection status. A negative (Not Detected) result does not preclude SARS-CoV-2 infection. In patients with clinical symptoms and other tests that are consistent with SARS-CoV-2 infection, negative results should be treated as presumptive negative and a new specimen should be tested with alternative PCR molecular test. Invalid: Please collect a new specimen for repeat patient testing if clinically indicated. Lab Interpretation Normal (test code = 27714-5) [facility]. METABOLIC PANEL (56629)2020-10-08 04:02:00 Test Item Value Reference Range Interpretation Comments NA (test code = 134 mmol/L 135-145 L 6626291790) K (test code = 4.2 mmol/L 3.5-5 7450993726) CL (test code = 98 mmol/L 98-108 7074357845) CO2 TOTAL (test code = 34 mmol/L 23-31 H 7387573957) AGAP (test code = 2-16 6887224645) BUN (test code = 33 mg/dL 7-23 H 3037716285) GLUCOSE (test code = 100 mg/dL 70-110 2089901725) CREATININE (test code = 1.41 mg/dL 0.5-1.04 H 1823805186) TOTAL BILI (test code = 0.5 mg/dL 0.1-1.1 5475003862) CALCIUM (test code = 9.1 mg/dL 8.6-10.6 2302346196) T PROTEIN (test code = 7.3 g/dL 6.3-8.2 0032870742) ALBUMIN (test code = 3.7 g/dL 3.5-5 1389547556) ALK PHOS (test code = 78 U/L 34-122 5012086106) ALTv (test code = 15 U/L 5-35 1742-6) AST(SGOT) (test code = 24 U/L 13-40 7187754772) eGFR Calculation mL/min/1.73m2 (Non-) (test code = 4012483233) eGFR Calculation mL/min/1.73m2 () (test code = 7433636511) ANDREW (test code = ANDREW) Association of Glomerular Filtration Rate (GFR) and Staging of Kidney Disease* + --+ --+ ------+| GFR (mL/min/1.73 m2) ?| With Kidney Damage ?| ?Without Kidney Damage+ --------+ --------+ +| ?>90 ?| ?Stage one ?| ? Normal ?+ ---+ ---+ -------+| ?60-89 ?| ?Stage two ?| ? Decreased GFR ? + --+ --+ ------+| ?30-59 ?| ?Stage three ?| ? Stage three ? + --+ --+ ------+| ?15-29 ?| ?Stage four ? | ? Stage four ?+ ---+ ---+ -------+| ?<15 (or dialysis) ? ?| ?Stage five ? | ? Stage five ?+ ---+ ---+ -------+ *Each stage assumes the associated GFR level has been in effect for at least three months. ?Stages 1 to 5, with or without kidney disease, indicate chronic kidney disease. Notes: Determination of stages one and two (with eGFR >59mL/min/1.73 m2) requires estimation of kidney damage for at least three months as defined by structural or functional abnormalities of the kidney, manifested by either:Pathological abnormalities or Markers of kidney damage (including abnormalities in the composition of the blood or urine or abnormalities in imaging tests). Lab Interpretation Abnormal (test code = 81521-1) [facility] 04:02:00 Test Item Value Reference Range Interpretation Comments LIPASE (test code = 5250687398) 54 U/L 0-220 Lab Interpretation (test code = Normal 31432-0) [facility] WITH [id number] 03:55:00 Test Item Value Reference Range Interpretation Comments WBC (test code = See_Comment [Automated message] 6690-2) The system [employer] generated this result transmitted ref erence range: 4.30 - 1 1.10 10*3/?L. The re ference range was not u sed to interpret this result as normal/abnor mal. RBC (test code = See_Comment [Automated message] 789-8) The system [employer] generated this result transmitted ref erence range: 3.93 - 5 .25 10*6/?L. The re ference range was not u sed to interpret this result as normal/abnor mal. HGB (test code = 13.8 g/dL 11.6-15 718-7) HCT (test code = 43.6 % 35.7-45.2 4544-3) MCV (test code = 88.4 fL 80.6-95.5 787-2) MCH (test code = 28.0 pg 25.9-32.8 785-6) MCHC (test code = 31.7 g/dL 31.6-35.1 786-4) RDW-SD (test code 47.6 fL 39-49.9 = 75399-4) RDW-CV (test code 14.6 % 12-15.5 = 788-0) PLT (test code = See_Comment [Automated message] 777-3) The system whic h generated this result transmitted ref erence range: 166 - 35 8 10*3/?L. The re ference range was not u sed to interpret this result as normal/abnor mal. MPV (test code = 11.0 fL 9.5-12.9 45432-3) NRBC/100 WBC (test See_Comment [Automat ed message] code = 6082428193) The syste m which generated this result transmitted ref erence range: 0.0 - 10 .0 /100 WBCs. The refer ence range was not u sed to interpret this result as normal/abnor mal. NRBC x10^3 (test <0.01 See_Comment [Automated message] code = 6282388726) The syste m which generated this result transmitted ref erence range: 10*3/?L. The reference range was not used to interpr et this result as normal/abnormal . GRAN MAT (NEUT) % 70.6 % (test code = 770-8) IMM GRAN % (test 0.40 % code = 5319766286) LYMPH % (test code 18.6 % = 736-9) MONO % (test code 8.8 % = 5905-5) EOS % (test code = 1.0 % 713-8) BASO % (test code 0.6 % = 706-2) GRAN MAT 5.89 10*3/uL 1.88-7.09 x10^3(ANC) (test code = 7638332988) IMM GRAN x10^3 0.03 10*3/uL 0-0.06 (test code = 3266520921) LYMPH x10^3 (test 1.55 10*3/uL 1.32-3.29 code = 731-0) MONO x10^3 (test 0.73 10*3/uL 0.33-0.92 code = 742-7) EOS x10^3 (test 0.08 10*3/uL 0.03-0.39 code = 711-2) BASO x10^3 (test 0.05 10*3/uL 0.01-0.07 code = 704-7) [facility] [id number] 10:48:00 Test Item Value Reference Range Interpretation Comments TROPONIN I (test 0.039 ng/mL See_Comment H [Automated code = 6123462861) message] The system which generated this result transmitted reference range : <=0.034. The reference range was not used to interpret this result as normal/abnormal . ANDREW (test code = Equal or Less than ANDREW) 0.034 ng/ml---Normal ?Note: Cardiac troponin begins to rise 3-4 hours after the onset of ischemia. Repeat in 4-6 hours if the sample was drawn within 3-4 hours of the onset of the symptom and found normal. Between 0.035 and 0.120 ng/mL--- Borderline. Questionable myocardial injury or necrosis ? ?Note: Serial measurement may be necessary to confirm or exclude the diagnosis of myocardial injury or necrosis; Clinical correlation (symptoms, EKGs, imaging studies, and others) required; Repeat in 4-6 hours if clinically indicated. ? Equal or Higher than 0.121 ng/mL---Abnormal. Myocardial Injury or Necrosis Likely ? Biotin has been reported to cause a negative bias, interpret results relative to patient's use of biotin. ? Lab Interpretation Abnormal (test code = 57418-5) [facility] 08:57:00 Test Item Value Reference Range Interpretation Comments LIPASE (test code = 6067829578) 46 U/L 0-220 Lab Interpretation (test code = Normal 12111-3) [facility] 08:44:00 Test Item Value Reference Range Interpretation Comments APPEARANCE (test code = Clear Clear 5648269764) COLOR (test code = Yellow Yellow 5280179311) PH (test code = 4.8-8.0 6617868222) SP GRAVITY (test code = 1.003-1.030 5541973619) GLU U QUAL (test code = 50 mg/dL Normal A 2786873498) BLOOD (test code = Negative Negative 8726859739) KETONES (test code = Negative Negative 0269350702) PROTEIN (test code = 500 mg/dL Negative A 2887-8) UROBILIN (test code = Normal Normal 9691899241) BILIRUBIN (test code = Negative Negative 8335856857) NITRITE (test code = Negative Negative 8972013817) LEUK ARVIN (test code = Negative Negative 2583566737) RBC/HPF (test code = See_Comment [Autom ated message] 0689976303) The system [employer] generated this result transmit erika reference range : 0 - 3 HPF. The refe rence range was not u sed to interpret th is result as normal/abnormal . WBC/HPF (test code = See_Comment [Autom ated message] 9870575848) The system [employer] generated this result transmit erika reference range : 0 - 5 HPF. The refe rence range was not u sed to interpret th is result as normal/abnormal . BACTERIA (test code = Few Negative A 5564876304) SQ EPITH (test code = HPF 6369681123) HYAL CAST (test code = See_Comment H [Aut omated message] 9583740723) The system [employer] generated this result transmit erika reference range : <=2 LPF. The refere nce range was not u sed to interpret th is result as normal/abnormal . TRANS EPI (test code = <1 See_Comment [Aut omated message] 6804744688) The system [employer] generated this result transmit erika reference range : <=1 HPF. The refere nce range was not u sed to interpret th is result as normal/abnormal . Lab Interpretation (test Abnormal code = 79600-3) [facility] [id number] 08:13:00 Test Item Value Reference Range Interpretation Comments TROPONIN I (test 0.036 ng/mL See_Comment H [Automated code = 3924769599) message] The system which generated this result transmitted reference range : <=0.034. The reference range was not used to interpret this result as normal/abnormal . ANDREW (test code = Equal or Less than ANDREW) 0.034 ng/ml---Normal ?Note: Cardiac troponin begins to rise 3-4 hours after the onset of ischemia. Repeat in 4-6 hours if the sample was drawn within 3-4 hours of the onset of the symptom and found normal. Between 0.035 and 0.120 ng/mL--- Borderline. Questionable myocardial injury or necrosis ? ?Note: Serial measurement may be necessary to confirm or exclude the diagnosis of myocardial injury or necrosis; Clinical correlation (symptoms, EKGs, imaging studies, and others) required; Repeat in 4-6 hours if clinically indicated. ? Equal or Higher than 0.121 ng/mL---Abnormal. Myocardial Injury or Necrosis Likely ? Biotin has been reported to cause a negative bias, interpret results relative to patient's use of biotin. ? Lab Interpretation Abnormal (test code = 70924-8) [facility] METABOLIC PANEL (69622)2020-10-07 08:02:00 Test Item Value Reference Range Interpretation Comments NA (test code = 136 mmol/L 135-145 2787084762) K (test code = 4.4 mmol/L 3.5-5 6879114116) CL (test code = 100 mmol/L 98-108 3343628832) CO2 TOTAL (test code = 32 mmol/L 23-31 H 8690208715) AGAP (test code = 2-16 3801541982) BUN (test code = 35 mg/dL 7-23 H 6208392787) GLUCOSE (test code = 138 mg/dL 70-110 H 2032162425) CREATININE (test code = 1.25 mg/dL 0.5-1.04 H 8393672963) TOTAL BILI (test code = 0.5 mg/dL 0.1-1.2 0687042765) CALCIUM (test code = 9.1 mg/dL 8.6-10.6 4118147081) T PROTEIN (test code = 6.8 g/dL 6.3-8.2 7245469472) ALBUMIN (test code = 3.5 g/dL 3.5-5 0832654536) ALK PHOS (test code = 74 U/L 34-122 7326260105) ALTv (test code = 16 U/L 5-35 1742-6) AST(SGOT) (test code = 26 U/L 13-40 2972102291) eGFR Calculation mL/min/1.73m2 (Non-) (test code = 4467147137) eGFR Calculation mL/min/1.73m2 () (test code = 0784506054) ANDREW (test code = ANDREW) Association of Glomerular Filtration Rate (GFR) and Staging of Kidney Disease* + --+ --+ ------+| GFR (mL/min/1.73 m2) ?| With Kidney Damage ?| ?Without Kidney Damage+ --------+ --------+ +| ?>90 ?| ?Stage one ?| ? Normal ?+ ---+ ---+ -------+| ?60-89 ?| ?Stage two ?| ? Decreased GFR ? + --+ --+ ------+| ?30-59 ?| ?Stage three ?| ? Stage three ? + --+ --+ ------+| ?15-29 ?| ?Stage four ? | ? Stage four ?+ ---+ ---+ -------+| ?<15 (or dialysis) ? ?| ?Stage five ? | ? Stage five ?+ ---+ ---+ -------+ *Each stage assumes the associated GFR level has been in effect for at least three months. ?Stages 1 to 5, with or without kidney disease, indicate chronic kidney disease. Notes: Determination of stages one and two (with eGFR >59mL/min/1.73 m2) requires estimation of kidney damage for at least three months as defined by structural or functional abnormalities of the kidney, manifested by either:Pathological abnormalities or Markers of kidney damage (including abnormalities in the composition of the blood or urine or abnormalities in imaging tests). Lab Interpretation Abnormal (test code = 32232-1) [facility] WITH [id number] 07:45:00 Test Item Value Reference Range Interpretation Comments WBC (test code = See_Comment [Automated message] 6690-2) The system [employer] generated this result transmitted ref erence range: 4.30 - 1 1.10 10*3/?L. The re ference range was not u sed to interpret this result as normal/abnor mal. RBC (test code = See_Comment [Automated message] 789-8) The system [employer] generated this result transmitted ref erence range: 3.93 - 5 .25 10*6/?L. The re ference range was not u sed to interpret this result as normal/abnor mal. HGB (test code = 13.7 g/dL 11.6-15 718-7) HCT (test code = 43.3 % 35.7-45.2 4544-3) MCV (test code = 88.4 fL 80.6-95.5 787-2) MCH (test code = 28.0 pg 25.9-32.8 785-6) MCHC (test code = 31.6 g/dL 31.6-35.1 786-4) RDW-SD (test code 47.0 fL 39-49.9 = 11982-7) RDW-CV (test code 14.6 % 12-15.5 = 788-0) PLT (test code = See_Comment [Automated message] 777-3) The system [employer] generated this result transmitted ref erence range: 166 - 35 8 10*3/?L. The re ference range was not u sed to interpret this result as normal/abnor mal. MPV (test code = 11.7 fL 9.5-12.9 54653-8) NRBC/100 WBC (test See_Comment [Automat ed message] code = 2200337588) The [employer] which generated this result transmitted ref erence range: 0.0 - 10 .0 /100 WBCs. The refer ence range was not u sed to interpret this result as normal/abnor mal. NRBC x10^3 (test <0.01 See_Comment [Automated message] code = 6369809711) The syste m which generated this result transmitted ref erence range: 10*3/?L. The reference range was not used to interpr et this result as normal/abnormal . GRAN MAT (NEUT) % 76.3 % (test code = 770-8) IMM GRAN % (test 0.30 % code = 4756717813) LYMPH % (test code 15.4 % = 736-9) MONO % (test code 7.0 % = 5905-5) EOS % (test code = 0.6 % 713-8) BASO % (test code 0.4 % = 706-2) GRAN MAT 7.06 10*3/uL 1.88-7.09 x10^3(ANC) (test code = 1235128559) IMM GRAN x10^3 0.03 10*3/uL 0-0.06 (test code = 6908213674) LYMPH x10^3 (test 1.43 10*3/uL 1.32-3.29 code = 731-0) MONO x10^3 (test 0.65 10*3/uL 0.33-0.92 code = 742-7) EOS x10^3 (test 0.06 10*3/uL 0.03-0.39 code = 711-2) BASO x10^3 (test 0.04 10*3/uL 0.01-0.07 code = 704-7) [facility] GLUCOSE (AUTOMATED)2020-09-30 13:41:00 Test Item Value Reference Range Interpretation Comments POCT GLU (test code = 4796587293) 101 mg/dL 70-110 Lab Interpretation (test code = Normal 39643-2) [facility] [id number] 13:36:00 Test Item Value Reference Range Interpretation Comments POCT Glu (age>30days) (test code = 101 mg/dL 70-110 3342) [facility]ID NOW RAPID TESTING)2020-09-29 16:13:00 Test Item Value Reference Range Interpretation Comments SARS-CoV-2 Rapid ID NOW Not Detected Not Detected (test code = 23815-6) ANDREW (test code = ANDREW) ID NOW COVID-19 Assay is an isothermal nucleic acid amplification test intended for the qualitative detection of nucleic acid from SARS-CoV-2 viral RNA in nasopharyngeal (REAL ESTATE MANAGEMENT SPECIALIST) specimens. It is used under Emergency Use Authorization (EUA) by FDA. The limit of detection (LOD) of the assay is 125 Genome Equivalents/mL. A positive result is indicative of the presence of SARS-CoV-2 RNA. ?Clinical correlation with patient history and other diagnostic information is necessary to determine patient infection status. A negative (Not Detected) result does not preclude SARS-CoV-2 infection. In patients with clinical symptoms and other tests that are consistent with SARS-CoV-2 infection, negative results should be treated as presumptive negative and a new specimen should be tested with alternative PCR molecular test. Invalid: Please collect a new specimen for repeat patient testing if clinically indicated. Lab Interpretation Normal (test code = 83982-9) [facility]
[2022-12-27] MEDS ORDERED: FUROSEMIDE 40 MG/4 ML VIAL ONE ×2 (12:24→13:21)
[2022-12-27] MEDS ORDERED: NITROGLYCERIN 1 GM PKT TD ONE (12:24)
--- NOTE | 2022-12-27 12:54 | RAD REPORT ---
EXAM DESCRIPTION: RAD - Chest Single View - 12/27/2022 12:46 pm CLINICAL HISTORY: DYSPNEA Chest pain. COMPARISON: Chest Single View dated 12/29/2020 FINDINGS: Portable technique limits examination quality. Moderate bilateral pulmonary opacities are present compatible with pulmonary edema. The heart is mild ly to moderately enlarged. No displaced fractures. IMPRESSION: Moderate CHF.
[2022-12-27 13:24] LABS: Absolute Lymphocytes (CBC) 1.4 K/uL (0.7-4.9); Hematocrit 40.3 % (36.0-45.0); Lymphocytes % 17.2 % (15.3-44.8); MCV 92.5 fL (80-100); RBC Red Blood Cell Count 4.36 M/uL (3.86-4.86)
[2022-12-27 14:56] LABS: Bilirubin Direct 0.1 mg/dL (0-0.2); Bilirubin Total 0.2 mg/dL (0.2-1.0); Potassium 4.2 mEq/L (3.5-5.1); Protein, Total 6.7 g/dL (6.4-8.2)
--- NOTE | 2022-12-27 15:37 | EDPHYS ---
Physician Documentation [facility] Name: Caprice Mojica Age: 62 yrs Sex: Female : 1960 Arrival Date: 12/27/2022 Time: 11:33 Bed 17 Private MD: ED Physician Nhan De Leon HPI: 12/27 12:26 This 62 yrs old Black Female presents to ER via Ambulatory with complaints of FLUID ON rt CHEST. 12:26 With history of congestive heart failure, stage IV CKD presents to the ED with rt shortness of breath, orthopnea, dyspnea on exertion as well as fluid retention. Patient was previously on 2 mg of Bumex once a day, has been on Bumex twice a day for the past week with no increase of urination, worsening fluid retention with blistering to the skin on the lower extremities. Reported a chest tightness last night, none currently. Reports mild shortness of breath at this time. Symptoms are moderate in severity, no other aggravating alleviating factors. No other associated symptoms.. Historical: - Allergies: 11:48 PENICILLINS; ap3 - Home Meds: 17:00 carvedilol 6.25 mg Oral tab 2 times per day [Active]; Durezol 0.05 % ophthalmic drop 1 eh3 drop 4 times per day [Active]; Estrace Oral [Active]; fluconazole 100 mg Oral tab 1 tab once daily [Active]; furosemide 40 mg Oral tab 1 tab once daily [Active]; losartan 50 mg Oral tab 1 tab once daily [Active]; Novolin R Sub-Q [Active]; Prolensa 0.07 % ophthalmic drop 1 drop once daily [Active]; rosuvastatin 10 mg Oral tab 1 tab once daily [Active]; spironolactone 25 mg Oral tab once daily [Active]; trelegy [Active]; Trulicity 1.5 mg/0.5 mL subcutaneous pnij 0.5 mL once wkly [Active]; - PMHx: 11:48 Diabetes - IDDM; Hyperlipidemia; Hypertension; stage 4 kidney failure; Congestive heart ap3 failure; - Immunization history:: Client reports receiving the 2nd dose of the Covid vaccine. - Social history:: Smoking status: Patient denies any tobacco usage or history of. - Family history:: not pertinent. ROS: 12:26 Constitutional: Negative for fever, chills, and weight loss, Abdomen/GI: Negative for rt abdominal pain, nausea, vomiting, diarrhea, and constipation, Skin: Negative for injury, rash, and discoloration, Neuro: Negative for headache, weakness, numbness, tingling, and seizure, Psych: Negative for depression, anxiety, suicide ideation, homicidal ideation, and hallucinations. 12:26 Cardiovascular: Positive for chest pain, edema. 12:26 Respiratory: Positive for dyspnea on exertion, shortness of breath. 12:26 MS/extremity: Positive for swelling, Negative for injury or acute deformity. Exam: 12:26 Constitutional: This is a well developed, well nourished patient who is awake, alert, rt and in no acute distress. Chest/axilla: Normal chest wall appearance and motion. Nontender with no deformity. No lesions are appreciated. Cardiovascular: Regular rate and rhythm with a normal S1 and S2. No gallops, murmurs, or rubs. Normal PMI, no JVD. No pulse deficits. Abdomen/GI: Soft, non-tender, with normal bowel sounds. No distension or tympany. No guarding or rebound. No evidence of tenderness throughout. Back: No spinal tenderness. No costovertebral tenderness. Full range of motion. Neuro: Awake and alert, GCS 15, oriented to person, place, time, and situation. Cranial nerves II-XII grossly intact. Motor strength 5/5 in all extremities. Sensory grossly intact. Cerebellar exam normal. Normal gait. Psych: Awake, alert, with orientation to person, place and time. Behavior, mood, and affect are within normal limits. 12:26 Respiratory: Basilar crackles, no respiratory distress. 12:26 Musculoskeletal/extremity: 3+ pitting extremity edema, symmetric, fluid blisters noted. 12:26 Skin: As per MSK exam, no erythema, evidence of cellulitis. 12:32 ECG was reviewed by the Attending Physician. rt Vital Signs: 11:46 Pulse 67; Resp 19; Temp 98.9; Pulse Ox 97% ; Weight 127.01 kg; ap3 11:50 BP 227 / 84; ap3 12:15 BP 213 / 77; Pulse 69; Resp 14; Pulse Ox 100% on R/A; eh3 12:45 BP 192 / 119; Pulse 71; Resp 17; Pulse Ox 98% on R/A; eh3 13:15 BP 211 / 115; Pulse 70; Resp 16; Pulse Ox 99% on R/A; eh3 13:45 BP 212 / 84; Pulse 66; Resp 18; Pulse Ox 100% on R/A; eh3 14:15 BP 241 / 87; Pulse 64; Resp 17; Pulse Ox 100% on R/A; eh3 14:45 BP 192 / 105; Pulse 66; Resp 18; Pulse Ox 100% on R/A; eh3 15:15 BP 211 / 179; Pulse 65; Resp 17; Pulse Ox 100% on R/A; eh3 15:45 BP 253 / 88; Pulse 67; Resp 16; Pulse Ox 100% on R/A; eh3 16:09 BP 246 / 94; Pulse 69; ss 16:15 BP 245 / 77; Pulse 67; Resp 16; Pulse Ox 100% on R/A; eh3 16:45 BP 239 / 84; Pulse 64; Resp 16; Pulse Ox 100% on R/A; eh3 17:15 BP 176 / 76; Pulse 71; Resp 16; Pulse Ox 100% on R/A; eh3 19:00 BP 192 / 75; Pulse 75; Resp 12 S; Pulse Ox 100% ; jb4 MDM: 11:53 Patient medically screened. rt 15:55 Differential diagnosis: Bronchitis CHF, pneumonia, pneumothorax, acute renal rt insufficiency. Data reviewed: vital signs, nurses notes, lab test result(s), EKG, radiologic studies. Consideration of Admission/Observation Patient was admitted/placed on observation. Management of patient was discussed with the following: Hospitalist: Agrees to admit. I considered the following discharge prescriptions or medication management in the emergency department Medications were administered in the Emergency Department. See MAR. Independent interpretation of the following test(s) in the Emergency Department X-Ray: My interpretation is Pulmonary edema seen on my interpretation of the chest x-ray images. Test considered but Not performed: CT: Low suspicion for PE, CT angiogram not indicated. Care significantly affected by the following chronic conditions: Congestive Heart Failure. Counseling: I had a detailed discussion with the patient and/or guardian regarding: the historical points, exam findings, and any diagnostic results supporting the discharge/admit diagnosis, lab results, radiology results, the need for further work-up and treatment in the hospital. Response to treatment: the patient's symptoms have mildly improved after treatment. 12/27 12:02 Order name: Basic Metabolic Panel; Complete Time: 14:59 rt 12/27 12:02 Order name: CBC with Diff; Complete Time: 13:53 rt 12/27 12:02 Order name: LFT's; Complete Time: 14:59 rt 12/27 12:02 Order name: NT PRO-BNP; Complete Time: 14:59 rt 12/27 12:02 Order name: Troponin HS; Complete Time: 14:59 rt 12/27 17:07 Order name: Magnesium EDMS 12/27 17:07 Order name: Phosphorus EDMS 12/27 17:07 Order name: Urinalysis w/ reflexes EDMS 12/27 17:07 Order name: Basic Metabolic Panel EDMS 12/27 17:07 Order name: Basic Metabolic Panel EDMS 12/27 17:07 Order name: CBC with Automated Diff EDMS 12/27 17:07 Order name: CBC with Automated Diff EDMS 12/27 12:02 Order name: XRAY Chest (1 view); Complete Time: 12:55 rt 12/27 12:02 Order name: EKG; Complete Time: 12:03 rt 12/27 16:20 Order name: 60g Consistent Carbohydrate (ADA 1800/2000) EDMS 12/27 12:02 Order name: Cardiac monitoring; Complete Time: 12:10 rt 12/27 12:02 Order name: EKG - Nurse/Tech; Complete Time: 12:10 rt 12/27 12:02 Order name: IV Saline Lock; Complete Time: 13:13 rt 12/27 12:02 Order name: Labs collected and sent; Complete Time: 13:13 rt 12/27 12:02 Order name: O2 Per Protocol; Complete Time: 12:10 rt 12/27 12:02 Order name: O2 Sat Monitoring; Complete Time: 12:10 rt 12/27 13:28 Order name: Labs - recollect needed: recollect green top; Complete Time: 14:22 bd EC:32 Rate is 67 beats/min. Rhythm is regular, 1st Degree Block with No ectopy. QRS [place] is rt Normal. UT interval is normal. QRS interval is normal. QT interval is normal. No Q waves. T waves are Normal. No ST changes noted. Clinical impression: Normal ECG. Administered Medications: 12:15 Drug: Nitroglycerin Transdermal Ointment 2 % 1 inches Route: Transdermal; Site: 3 anterior chest wall; 13:15 Follow up: Response: No adverse reaction eh3 13:15 Drug: Furosemide IVP 40 mg Route: IVP; Site: left antecubital; eh3 14:15 Follow up: Response: No adverse reaction eh3 17:00 Drug: hydrALAZINE IVP 20 mg Route: IVP; Site: left antecubital; eh3 18:00 Follow up: Response: Blood pressure is lowered eh3 Disposition Summary: 12/27/22 15:36 Hospitalization Ordered Hospitalization Status: Observation rt Provider: Frank Zuniga rt Location: Telemetry/MedSurg (observation) rt Condition: Fair rt Problem: an acute exacerbation rt Symptoms: have improved rt Bed/Room Type: Standard rt Room Assignment: 407(12/27/22 18:40) ss Diagnosis - Unspecified systolic (congestive) heart failure rt - Acute Kidney Injury rt Forms: - Medication Reconciliation Form rt - SBAR form rt Signatures: Dispatcher [employer] EDReena Toledo Shelby, RN RN ss Prokisch, Amanda, RN RN ap3 Manuela Joseph RN RN eh3 Nhan De Leon MD MD rt Corrections: (The following items were deleted from the chart) 18:40 15:36 rt ss
--- NOTE | 2022-12-27 15:37 | ER ---
[facility] Name: Caprice Mojica Age: 62 yrs Sex: Female : 1960 Arrival Date: 12/27/2022 Time: 11:33 Bed 17 Private MD: Diagnosis: Unspecified systolic (congestive) heart failure;Acute Kidney Injury Presentation: 12/27 11:46 Chief complaint: Patient states: she is feeling like she is very swollen and is having ap3 a hard time getting the fluid off. patient states she called her PCP's office who informed her to come get evaluated. Patient states she has been feeling this way for approx one month. Coronavirus screen: At this time, the client does not indicate any symptoms associated with coronavirus-19. Ebola Screen: No symptoms or risks identified at this time. Initial Sepsis Screen:. Initial Sepsis Screen: Does the patient meet any 2 criteria? No. Patient's initial sepsis screen is negative. Does the patient have a suspected source of infection? No. Patient's initial sepsis screen is negative. Risk Assessment: Do you want to hurt yourself or someone else? Patient reports no desire to harm self or others. Onset of symptoms was November 27, 2022. 11:46 Method Of Arrival: Ambulatory ap3 11:50 Acuity: HERLINDA 2 ap3 Triage Assessment: 11:49 General: Appears uncomfortable, Behavior is calm, cooperative, appropriate for age. ap3 Pain: Complains of pain in right leg and left leg Pain began gradually, over the last month. Neuro: Level of Consciousness is awake, alert, obeys commands, Oriented to person, place, time, situation. Cardiovascular: Patient's skin is warm and dry. Respiratory: Airway is patent Respiratory effort is even, unlabored. Derm: Wound noted right leg and left leg. Musculoskeletal: Swelling present in right leg and left leg. Historical: - Allergies: 11:48 PENICILLINS; ap3 - Home Meds: 17:00 carvedilol 6.25 mg Oral tab 2 times per day [Active]; Durezol 0.05 % ophthalmic drop 1 eh3 drop 4 times per day [Active]; Estrace Oral [Active]; fluconazole 100 mg Oral tab 1 tab once daily [Active]; furosemide 40 mg Oral tab 1 tab once daily [Active]; losartan 50 mg Oral tab 1 tab once daily [Active]; Novolin R Sub-Q [Active]; Prolensa 0.07 % ophthalmic drop 1 drop once daily [Active]; rosuvastatin 10 mg Oral tab 1 tab once daily [Active]; spironolactone 25 mg Oral tab once daily [Active]; trelegy [Active]; Trulicity 1.5 mg/0.5 mL subcutaneous pnij 0.5 mL once wkly [Active]; - PMHx: 11:48 Diabetes - IDDM; Hyperlipidemia; Hypertension; stage 4 kidney failure; Congestive heart ap3 failure; - Immunization history:: Client reports receiving the 2nd dose of the Covid vaccine. - Social history:: Smoking status: Patient denies any tobacco usage or history of. - Family history:: not pertinent. Screenin:50 Abuse screen: Denies threats or abuse. Nutritional screening: No deficits noted. ap3 Tuberculosis screening: No symptoms or risk factors identified. 12:00 [facility] ED Fall Risk Assessment (Adult) Score/Fall Risk Level 3 or more points = High eh3 Risk Oriented to surroundings, Maintained a safe environment, Educated pt \T\ family on fall prevention, incl call for assistance when getting out of bed, Assessed \T\ reinforced patient's understanding of fall precautions, Provided non-skid footwear, Hourly rounding (assess needs \T\ fall precautionary measures) done, Used ambulatory aids as needed (educated on \T\ assisted with). Assessment: 12:00 General: Appears in no apparent distress. uncomfortable, Behavior is calm, cooperative, eh3 appropriate for age. Pain: Complains of pain in left leg and right leg. Neuro: Level of Consciousness is awake, alert, obeys commands, Oriented to person, place, time, situation. Cardiovascular: Reports shortness of breath, Capillary refill < 3 seconds JVD is absent Patient's skin is warm and dry. Edema is 2+ to left midcalf, left ankle, left foot, right midcalf, right ankle and right foot. Respiratory: Airway is patent Respiratory effort is even, unlabored, Respiratory pattern is regular, symmetrical. GI: Abdomen is round non-distended. : No signs and/or symptoms were reported regarding the genitourinary system. EENT: No signs and/or symptoms were reported regarding the EENT system. Derm: Skin is pink, warm \T\ dry. Musculoskeletal: No signs and/or symptoms reported regarding the musculoskeletal system. 13:00 Reassessment: Patient appears in no apparent distress at this time. Patient and/or 3 family updated on plan of care and expected duration. Pain level reassessed. Patient is alert, oriented x 3, equal unlabored respirations, skin warm/dry/pink. 14:00 Reassessment: Patient appears in no apparent distress at this time. Patient and/or eh3 family updated on plan of care and expected duration. Pain level reassessed. Patient is alert, oriented x 3, equal unlabored respirations, skin warm/dry/pink. 15:00 Reassessment: Patient appears in no apparent distress at this time. Patient and/or eh3 family updated on plan of care and expected duration. Pain level reassessed. Patient is alert, oriented x 3, equal unlabored respirations, skin warm/dry/pink. 16:00 Reassessment: Patient appears in no apparent distress at this time. Patient and/or eh3 family updated on plan of care and expected duration. Pain level reassessed. Patient is alert, oriented x 3, equal unlabored respirations, skin warm/dry/pink. 16:11 Reassessment: Dr. De Leon notified of elevated BP. Additional medications ordered. ss 17:00 Reassessment: Patient appears in no apparent distress at this time. Patient and/or eh3 family updated on plan of care and expected duration. Pain level reassessed. Patient is alert, oriented x 3, equal unlabored respirations, skin warm/dry/pink. Vital Signs: 11:46 Pulse 67; Resp 19; Temp 98.9; Pulse Ox 97% ; Weight 127.01 kg; ap3 11:50 BP 227 / 84; ap3 12:15 BP 213 / 77; Pulse 69; Resp 14; Pulse Ox 100% on R/A; eh3 12:45 BP 192 / 119; Pulse 71; Resp 17; Pulse Ox 98% on R/A; eh3 13:15 BP 211 / 115; Pulse 70; Resp 16; Pulse Ox 99% on R/A; eh3 13:45 BP 212 / 84; Pulse 66; Resp 18; Pulse Ox 100% on R/A; eh3 14:15 BP 241 / 87; Pulse 64; Resp 17; Pulse Ox 100% on R/A; eh3 14:45 BP 192 / 105; Pulse 66; Resp 18; Pulse Ox 100% on R/A; eh3 15:15 BP 211 / 179; Pulse 65; Resp 17; Pulse Ox 100% on R/A; eh3 15:45 BP 253 / 88; Pulse 67; Resp 16; Pulse Ox 100% on R/A; eh3 16:09 BP 246 / 94; Pulse 69; ss 16:15 BP 245 / 77; Pulse 67; Resp 16; Pulse Ox 100% on R/A; eh3 16:45 BP 239 / 84; Pulse 64; Resp 16; Pulse Ox 100% on R/A; eh3 17:15 BP 176 / 76; Pulse 71; Resp 16; Pulse Ox 100% on R/A; eh3 19:00 BP 192 / 75; Pulse 75; Resp 12 S; Pulse Ox 100% ; jb4 ED Course: 11:35 Patient arrived in ED. ts1 11:50 Nhan De Leon MD is Attending Physician. rt 11:50 Triage completed. ap3 11:51 Arm band placed on left wrist. ap3 12:00 Patient has correct armband on for positive identification. Bed in low position. Call 3 light in reach. Side rails up X2. Client placed on continuous cardiac and pulse oximetry monitoring. NIBP monitoring applied. Door closed. Noise minimized. Warm blanket given. Pillow given. 12:10 Manuela Joseph, RN is Primary Nurse. eh3 12:45 Missed attempt(s): 22 gauge in left antecubital area. Bleeding controlled, band aid eh3 applied, catheter tip intact. 12:49 XRAY Chest (1 view) In Process Unspecified. EDMS 13:13 Initial lab(s) drawn, by wa, sent to lab. Inserted saline lock: 22 gauge in left em1 antecubital area, using aseptic technique. Blood collected. 15:35 Frank Zuniga MD is Hospitalizing Provider. rt 17:00 No provider procedures requiring assistance completed. Patient admitted, IV remains in [address]. 19:00 Report given to Teofilo Chow RN. 3 Administered Medications: 12:15 Drug: Nitroglycerin Transdermal Ointment 2 % 1 inches Route: Transdermal; Site: 3 anterior chest wall; 13:15 Follow up: Response: No adverse reaction 3 13:15 Drug: Furosemide IVP 40 mg Route: IVP; Site: left antecubital; 3 14:15 Follow up: Response: No adverse reaction eh3 17:00 Drug: hydrALAZINE IVP 20 mg Route: IVP; Site: left antecubital; eh3 18:00 Follow up: Response: Blood pressure is lowered eh3 Medication: 17:00 VIS not applicable for this client. 3 Output: 14:29 Urine: 525ml (Voided); Total: 525ml. eh3 17:30 Urine: 300ml (Voided); Total: 825ml. 3 Outcome: 15:36 Decision to Hospitalize by Provider. rt 17:00 Admitted to ER Hold. Please see [facility] for further documentation. 3 17:00 Condition: stable 17:00 Instructed on the need for admit. 19:45 Patient left the ED. mb9 Signatures: Dispatcher [employer] EDElkin Walton em1 Tricia Yoder RN RN ss Teofilo Chow RN RN jb4 Yisel Velazquez RN RN 3 Manuela Joseph RN RN 3 Tammy Dooley RN RN mb9 Nhan De Leon MD MD rt Crys Crespo PAS PAS ts1 Corrections: (The following items were deleted from the chart) 16:11 16:09 BP 146 / 94; Pulse 69bpm; ss ss
[2022-12-27] MEDS ORDERED: HYDRALAZINE HCL 20 MG/ML VIAL IV PRN (16:17)
[2022-12-27] MEDS ORDERED: HYDRALAZINE HCL 20 MG/ML VIAL ONE ×2 (16:52→19:14)
[2022-12-27] MEDS ORDERED: HYDROCODONE/APAP 5/325 MG TAB PO PRN (16:59)
[2022-12-27] MEDS ORDERED: ACETAMINOPHEN 325 MG TABLET PO PRN (16:59)
[2022-12-27] MEDS ORDERED: ONDANSETRON 4 MG/2 ML VIAL IV PRN (17:04)
[2022-12-27] MEDS ORDERED: GLUCAGON 1 MG/VIAL IM PRN ×2 (17:06→20:24)
--- NOTE | 2022-12-27 17:07 | P.HP ---
Certification for Inpatient Patient admitted to: Inpatient With expected LOS: >2 Midnights Patient will require the following post-hospital care: None Practitioner: I am a practitioner with admitting privileges, knowledge of patient current condition, hospital course, and medical plan of care. Services: Services provided to patient in accordance with Admission requirements found in Title 42 Section 412.3 of the Code of Federal Regulations Patient History Date of Service: 12/27/22 Reason for admission: BLE swelling, SOB History of Present Illness: Patient is a 62-year-old female with a past medical history significant for hypertension, CHF, CKD, HLD, morbid obesity, hypothyroidism, DM 2, MAX on CPAP who presents with complaint of bilateral lower extremity swelling that has been ongoing for the past 1 month. Patient also reports substernal chest pain rated as 8/10 in severity and described as pressure in quality. Patient reported asso ciated signs and symptoms of shortness of breath, headache and abdominal distention/swelling. Patient denies any other signs and symptoms. Symptoms are aggravated by exertion and relieved by nothing. Patient reported that she followed up with her PCP 1 week ago and her dose of Bumex was increased but swelling\shortness of breath did not improve. Patient decided to present to the hospital due to worsening symptoms. Allergies Penicillins Allergy (Unknown, Verified 01/26/21 08:52) Itching, [place] Home Medications: Dulaglutide [Trulicity] 0.5 ml SQ SEECOM 12/29/20 Escitalopram [Lexapro*] 10 mg PO DAILY 12/29/20 Fluticasone/Umeclidin/Vilanter [Trelegy Ellipta 200-62.5-25] 1 puff IH DAILY 12/29/20 Furosemide [Lasix*] 1 tab PO DAILY PRN 12/29/20 Insulin -Regular Human [Novolin -R*] 25 units SQ ACHS 12/29/20 Insulin NPH Human Isophane [Novolin N] 40 units SQ BID 12/29/20 Levothyroxine [Synthroid*] 1 tab PO [id number] 12/29/20 Losartan Potassium [Cozaar] 50 mg PO DAILY 12/29/20 Rosuvastatin [Crestor*] 1 tab PO BEDTIME 12/29/20 Spironolactone [Aldactone*] 1 tab PO BID 12/29/20 Carvedilol [Coreg] 6.25 mg PO BID 01/26/21 Ciprofloxacin HCl [Cipro 500 MG Tablet] 500 mg PO BID #10 tab 01/26/21 Codeine/APAP [Tylenol W/Codeine #3 tab] 1 tab PO Q4HP PRN #20 tab 01/26/21 Dapagliflozin Propanediol [Farxiga] 10 mg PO DAILY 01/26/21 Dicyclomine HCl 20 mg PO DAILY 01/26/21 NIFEdipine [Nifedipine ER] 90 mg PO DAILY 01/26/21 - Past Medical/Surgical History -: DM 2 -: Morbid obesity -: Hypothyroidism -: Hyperlipidemia -: MAX on CPAP. -: CKD Past Surgical History: Reviewed- Non-Contributory - Family History Family History: Reviewed- Non-Contributory - Social History Smoking Status: Never smoker Alcohol use: Yes CD- Drugs: No Caffeine use: Yes Place of Residence: Home Review of Systems General: Unremarkable Eyes: Unremarkable ENT: Unremarkable Respiratory: Shortness of Breath, SOB with Excertion Cardiovascular: Chest Pain Gastrointestinal: Distention, Other (Abdominal swelling) Genitourinary: Unremarkable Musculoskeletal: Pedal edema (BLE edema ), Other Integumentary: Unremarkable Neurological: Other (Headache), Unremarkable Lymphatics: Unremarkable Physical Examination - Physical Exam General: Alert, In no apparent distress, Oriented x3, Cooperative HEENT: Atraumatic, PERRLA, Mucous membr. moist/pink, EOMI, Sclerae nonicteric Neck: Supple, 2+ carotid pulse no bruit, No LAD, Without JVD or thyroid abnormality Respiratory: Normal air movement, Diminished Cardiovascular: Regular rate/rhythm, Normal S1 S2, Edema Capillary refill: <2 Seconds Gastrointestinal: Normal bowel sounds, Soft and benign, No tenderness, Distended Musculoskeletal: No tenderness, Swelling Integumentary: No rashes, No breakdown, Other (Blisters on right lower extremity.) Neurological: Normal speech, Normal tone, Normal affect Lymphatics: No axilla or inguinal lymphadenopathy - Studies Laboratory Data (last 24 hrs) 12/27/22 14:21: Sodium 139, Potassium 4.2, BUN 42 H, Creatinine 2.65 H, Glucose 213 H, Total Bilirubin 0.2, AST 15, ALT 19, Alkaline Phosphatase 73 12/27/22 13:15: WBC 8.30, Hgb 12.8, Hct 40.3, Plt Count 181 Assessment and Plan - Plan --Acute on chronic diastolic CHF exacerbation. Continue diuresis with Lasix. Echocardiogram pending to assess cardiac structures and function. Cardiology consulted. Daily weight and strict I/O. Will await further recommendations from spring bender. -- Chest pain. To rule out ACS. Will trend serial troponins--so far negative. Echocardiogram pending to assess LV\valvular function and wall motion. Telemetry to monitor for any malignant arrhythmia. Research Food Technologist on board. Will await further recommendations. -- ROBERT on CKD 3A. Likely secondary to cardiorenal syndrome vs Bumex. Nephrology consulted. We will hold off on ARB's. Avoid nephrotoxins. Will lizbeth it further recommendations. --MAX. Continue CPAP every bedtime. --Hyperlipidemia. Continue statin. --Class III obesity. Likely secondary to excess calories intake and sedentary lifestyle. Patient counseled on weight reduction, diet and excise therapy. --Hypothyroidism. Continue Synthroid. --Hypertensive urgency. BP medications modified. Continue hydralazine as needed. --DM2 with hyperglycemia. BS monitoring with sliding scale insulin and NPH --Headache. Tylenol as needed. -- DVT prophylaxis with Lovenox subQ. Discharge Plan: Home Plan to discharge in: Greater than 2 days - Advance Directives Does patient have a Living Will: No Does patient have a Durable POA for Healthcare: No - Code Status/Comfort Care Code Status Assessed: Yes Physician Review: Patient Assessed, Agree with Above Assessment and Plan Critical Care: No
[2022-12-27] MEDS ORDERED: D10W 250 ML BAG IV PRN ×2 (17:15→20:35)
[2022-12-27 17:59] LABS: Magnesium 1.6 mg/dL (1.6-2.4); Phosphorus 3.4 mg/dL (2.5-4.9)
[2022-12-27] MEDS: ENOXAPARIN 40 MG/0.4 ML SQ SCH (18:00)
[2022-12-27] MEDS ORDERED: ENOXAPARIN 40 MG/0.4 ML SQ ONE (19:15)
[2022-12-27 19:33] VITALS: BMI 54.6
[2022-12-27] MEDS ORDERED: D50W 25 GM/50 ML SYRINGE IV PRN (20:24)
[2022-12-27] MEDS ORDERED: NIFEDIPINE XL 90 MG TABLET PO SCH (21:00)
[2022-12-27] MEDS: INSULIN 70/30 100 UNITS/ML SQ SCH (21:00)
[2022-12-27] MEDS: HYDRALAZINE HCL 25 MG TABLET PO SCH (21:01)
[2022-12-27] MEDS: FUROSEMIDE 40 MG/4 ML VIAL IV SCH (21:02)
[2022-12-27] MEDS: INSULIN -REGULAR HUMAN 50 UNIT/0.5 ML ML SQ SCH (21:02)
[2022-12-28 02:25] LABS: Potassium 4.1 mEq/L (3.5-5.1)
[2022-12-28 02:27] LABS: Absolute Lymphocytes (CBC) 1.2 K/uL (0.7-4.9); Hematocrit 37.1 % (36.0-45.0); Lymphocytes % 16.9 % (15.3-44.8); MCV 91.5 fL (80-100); MPV 9.7 fL (7.6-11.3); RBC Red Blood Cell Count 4.06 M/uL (3.86-4.86)
[2022-12-28] MEDS: INSULIN -REGULAR HUMAN 50 UNIT/0.5 ML ML SQ SCH ×4 (07:30→21:00)
[2022-12-28] MEDS: INSULIN 70/30 100 UNITS/ML SQ SCH ×2 (07:30→16:23)
[2022-12-28 07:38] LABS: Specific Gravity 1.017 (1.005-1.030); Urine Bacteria None Seen /HPF (<20); Urine Bilirubin NEGATIVE (Negative); Urine Blood Trace (Negative); Urine Clarity Clear (Clear); Urine Color Light-Yellow (Yellow); Urine Glucose 3+ (Negative); Urine Protein 4+ (Over) (Negative); Urine RBC <5 /HPF (None Seen); Urine Urobilinogen Normal (Normal)
[2022-12-28] MEDS: ENOXAPARIN 40 MG/0.4 ML SQ SCH (08:55)
[2022-12-28] MEDS: FUROSEMIDE 40 MG/4 ML VIAL IV SCH ×2 (08:55→22:29)
[2022-12-28] MEDS: HYDRALAZINE HCL 25 MG TABLET PO SCH ×3 (08:55→22:28)
[2022-12-28] MEDS: ASPIRIN 81 MG CHEWABLE TABLET PO SCH (08:56)
[2022-12-28] MEDS: GABAPENTIN 300 MG CAP PO SCH ×2 (08:56→22:28)
[2022-12-28] MEDS ORDERED: carvediloL 12.5 MG TAB PO SCH ×2 (09:00)
[2022-12-28] MEDS ORDERED: MAGNESIUM SULFATE 1 gm IVPB 1 GM/100 ML BAG IV ONE (09:00)
--- NOTE | 2022-12-28 10:03 | P.CNS ---
Date of Consult: 12/28/22 Reason for Consult: ROBERT/ CKD Requesting Physician: Frank Zuniga Chief Complaint: BLE swelling, SOB History of Present Illness: Patient is a 62-year-old female with a past medical history significant for hypertension, CHF, CKD, HLD, morbid obesity, hypothyroidism, DM 2, MAX on CPAP who presents with complaint of bilateral lower extremity swelling that has been ongoing for the past 1 month. Patient also reports substernal chest pain rated as 8/10 in severity and described as pressure in quality. Patient reported associated signs and symptoms of shortness of breath, headache and abdominal distention/swelling. Patient denies any other signs and symptoms. Symptoms are aggravated by exertion and relieved by nothing. Patient reported that she followed up with her PCP 1 week ago and her dose of Bumex was increased but swelling\shortness of breath did not improve. Patient decided to present to the hospital due to worsening symptoms. 12:26 This 62 yrs old Black Female presents to ER via Ambulatory with complaints of FLUID ON rt CHEST. 12:26 With history of congestive heart failure, stage IV CKD presents to the ED with rt shortness of breath, orthopnea, dyspnea on exertion as well as fluid retention. Patient was previously on 2 mg of Bumex once a day, has been on Bumex twice a day for the past week with no increase of urination, worsening fluid retention with blistering to the skin on the lower extremities. Reported a chest tightness last night, none currently. Reports mild shortness of breath at this time. Symptoms are moderate in severity, no other aggravating alleviating factors. No other associated symptoms. Allergies Penicillins Allergy (Unknown, Verified 01/26/21 08:52) Itching, Whelps Home medications list reviewed: Yes Home Medications: Fluticasone/Umeclidin/Vilanter [Trelegy Ellipta 200-62.5-25] 1 puff IH DAILY 12/29/20 Insulin NPH Human Isophane [Novolin N] 40 units SQ BID 12/29/20 Rosuvastatin [Crestor*] 2 tab PO BEDTIME 12/29/20 Spironolactone [Aldactone*] 1 tab PO BID 12/29/20 Carvedilol [Coreg] 6.25 mg PO BID 01/26/21 Bumetanide [Bumex*] 1 mg PO DAILY 12/27/22 Clonidine [Catapres-Tts 1] 0.2 mg TOP Q7D 12/27/22 Gabapentin 300 mg PO BID 12/27/22 Hydralazine [Apresoline*] 50 mg PO TID 12/27/22 Irbesartan 150 mg PO DAILY 12/27/22 - Past Medical/Surgical History Diabetic: Yes -: DM 2 -: Morbid obesity -: Hypothyroidism -: HLD -: MAX on CPAP. -: CKD III/IV with Proteinuria (Dr. Granados) -: HTN - Social History Alcohol use: Yes CD- Drugs: No Caffeine use: Yes Place of Residence: Home Review of Systems 10-point ROS is otherwise unremarkable General: Weakness Respiratory: SOB with Excertion Cardiovascular: Edema Physical Examination Temp Pulse Resp BP Pulse Ox 97.2 F 68 16 165/65 H 96 12/28/22 08:00 12/28/22 08:00 12/28/22 08:00 12/28/22 08:00 12/28/22 08:00 General: Oriented x3, Cooperative HEENT: Atraumatic Neck: Supple Respiratory: Clear to auscultation bilaterally Cardiovascular: Regular rate/rhythm, Edema Gastrointestinal: Soft and benign, Non-distended, No guarding Musculoskeletal: No clubbing, No contractures Integumentary: No rashes, No cyanosis, Skin lesion Neurological: Normal speech Laboratory Data (last 24 hrs) 12/27/22 14:21: Phosphorus 3.4, Magnesium 1.6 12/27/22 14:21: Sodium 139, Potassium 4.2, BUN 42 H, Creatinine 2.65 H, Glucose 213 H, Total Bilirubin 0.2, AST 15, ALT 19, Alkaline Phosphatase 73 12/27/22 13:15: WBC 8.30, Hgb 12.8, Hct 40.3, Plt Count 181 Imagings Data: EXAM DESCRIPTION: RAD - Chest Single View - 12/27/2022 12:46 pm CLINICAL HISTORY: DYSPNEA Chest pain. COMPARISON: Chest Single View dated 12/29/2020 FINDINGS: Portable technique limits examination quality. Moderate bilateral pulmonary opacities are present compatible with pulmonary edema. The heart is mildly to moderately enlarged. No displaced fractures. IMPRESSION: Moderate CHF. Echocardiogram 12-29-20 LEFT VENTRICULAR WALL MOTION: NORMAL. DOPPLER/COLOR FLOW: NORMAL. COMMENTS: MILD CONCENTRIC LEFT VENTRICULAR HYPERTROPHY. NO WALL MOTION ABNORMALITY. NO MITRAL VALVE PROLAPSE. NO EFFUSION. EXAM DESCRIPTION: US - Abdomen Exam Complete - 05/06/2021 11:08 am CLINICAL HISTORY: K59.00, R10.12 COMPARISON: Abdomen Exam Limited dated 01/16/2021 FINDINGS: Gallbladder is not identified and surgically absent by history. No mass or abnormal fluid collection in the gallbladder fossa. Common bile duct is normal with no common duct stone identified. Liver shows a coarsened, increased echogenicity with poor sonographic penetrance. This is nonspecific but typically a diffuse fatty infiltration process. Sensitivity for parenchymal assessment is limited in the setting of fatty infiltration. No focal liver lesion identifiable. No portal vein abnormality seen. Liver is prominent at 20 cm. Spleen is 9 cm with no focal splenic abnormality. The pancreas is normal. No hydronephrosis or suspicious mass in either kidney. A 2 centimeter incidental left renal cyst present. Aorta and IVC show no significant finding. No ascites or bulky lymphadenopathy. IMPRESSION: Diffuse fatty infiltration of a prominent size 20 centimeter liver. No focal liver lesion could be identified. Status post cholecystectomy with no abnormal biliary tree finding. Conclusions/Impression: Stage I ROBERT may be CRS CKD III/IV with Proteinuria (Serum creatinine 2.17 on 09-01-22) -No NSAIDs HTN with CKD/ CHF -Continue Coreg & Hydralazine -Restart Clonodine TD MAX on CPAP -CPAP qhs Diastolic CHF, A/C Hypervolemia -Continue Lasix -Start Spironolactone daily -Metolazone X1 DM II with Polyneuropathy & CKD -Continue Gabapentin -RISS Case reviewed with Dr. Zuniga Thank you kindly for the consultation
[2022-12-28] MEDS ORDERED: METOLAZONE 5 MG TABLET PO ONE (11:37)
[2022-12-28] MEDS: SPIRONOLACTONE 25 MG TABLET PO SCH (11:58)
--- NOTE | 2022-12-28 12:54 | CON ---
Date of Consultation: 12/28/2022 Reason For Consultation: Congestive heart failure. History Of Present Illness: Ms. Mojica is a 62-year-old black woman, who has a history of diabetes, hypertension, dyslipidemia, chronic renal disease stage 4, diastolic congestive heart failure with a n ejection fraction of 69% 2 years ago, comes in with PND, orthopnea, pedal edema, shortness of breat h. Denied chest pain, nausea, vomiting, diaphoresis. Denies palpitation or syncope. Denies fever o r chills. First troponin was negative. Her BNP was 3785. Creatinine is 2.68. Chest x-ray showed f ailure. EKG showed LVH. Allergies: TO PENICILLIN. Review of Systems: Negative. Social History: Negative. Family History: Negative. Medications: Include Crestor, insulin, hydralazine, nifedipine, Lasix, and Coreg. Physical Examination: Vital Signs: Stable. Afebrile. Sinus rhythm. HEENT: Negative. Neck: Supple with no bruit. Chest: Rales both bases. Cardiac: Regular rhythm and rate with S4 gallops. Abdomen: Obese, but benign. Extremities: No clubbing or cyanosis. She had 2+ edema. Diagnostic Data: Creatinine is 2.68, as mentioned earlier. Impression And Plan: 1.Acute on chronic diastolic congestive heart failure exacerbation. 2.Chronic renal disease, stage 4. Nephrology consultation is recommended. 3.Diabetes. 4.Hypertension. 5.Dyslipidemia. I am not too fond of her taking Procardia 90 daily with her history of congestive heart failure. I t hink it will be better to double up her Coreg dose. Continue Lasix, hydralazine, Crestor, and insuli n, and to continue Lovenox for now. I think another echocardiogram is reasonable. We will continue to follow her. SAM/ANDERSON Voice ID: [id number] Report ID: [id number]
--- NOTE | 2022-12-28 14:28 | EKG ---
Test Date: 2022-12-27 Test Time: 12:02:43 Facilities Locator: OUSMANE MEASUREMENT RESULTS: Intervals: Rate: 67 CT: 216 QRSD: 84 QT: 430 QTc: 454 [place]: P: 70 CT: 216 QRS: 72 T: 71 INTERPRETIVE STATEMENTS: Sinus rhythm with 1st degree AV block Low voltage QRS Borderline ECG Compared to ECG 01/16/2021 15:24:26 Low QRS voltage now present Sinus bradycardia no longer present Electronically Signed On 12-28-22 14:26:18 CDT by Fernie Rob
--- NOTE | 2022-12-28 16:52 | P.PN ---
Subjective Date of Service: 12/28/22 Chief Complaint: BLE swelling, SOB Overnight, she was significantly hypertensive up to 246/94. She also had an episode of hypoglycemia this morning down to 54. She reported a headache, but this has completely resolved. She denies any chest pain, shortness of breath, or palpitations. Review of Systems 10-point ROS is otherwise unremarkable Respiratory: Shortness of Breath Cardiovascular: Orthopnea, Edema Physical Examination - Vital Signs Temperature: 97.6 F Blood Pressure: 171/74 Pulse: 76 Respirations: 16 Pulse Ox (%): 96 - Physical Exam General: Alert, In no apparent distress, Oriented x3 HEENT: Atraumatic, Mucous membr. moist/pink, Sclerae nonicteric Neck: JVD not distended (difficult to assess given habitus) Respiratory: Diminished, Crackles/rales (bibasilar) Cardiovascular: Regular rate/rhythm, Normal S1 S2, No gallops, No rubs, No murmurs, Edema (2-3+ BLE) Gastrointestinal: Normal bowel sounds, Soft and benign, Non-distended, No tenderness, No rebound, No guarding Musculoskeletal: No clubbing Integumentary: No rashes Neurological: Normal speech, Normal affect - Studies Laboratory Data (last 24 hrs) 12/27/22 14:21: Phosphorus 3.4, Magnesium 1.6 Assessment And Plan - Plan # Hypertensive Emergency with Acute on Chronic Decompensated Diastolic Congestive Heart Failure with Preserved Ejection Fraction - Blood pressure as high as 246/94 - goal to reduce ~20 % over the first 24 hours - Consult Cardiology and spoke with Dr. Morelos - recommendations appreciated - Recommended discontinuing amlodipine and increasing carvedilol dose - Chest x-ray = "moderate CHF." - CT head requested due to headache - Serial troponin: 44.0 -> 48.7 -> 48.0 - Ordered transthoracic echocardiogram - Diuresis with IV furosemide for today - Continue carvedilol, hydralazine, spironolactone - Daily weights - Strict I/O - Cardiac diet, 1.5 L fluid restriction, 2 g Na restriction # KDIGO Stage I Acute Kidney Injury - Nephrology consulted and spoke with Dr. Silva - recommendations appreciated - Creatinine = 2.65 -> 2.68 (creatinine was 1.39 on 01/16/2021) - Urinalysis = 3+ glucose, 4+ protein - IV diuretics as mentioned above - Monitor creatinine and urine output - If worsening, obtain renal ultrasound - Renally dose medications # Hyperglycemia followed by Hypoglycemia in Type II Diabetes Mellitus - Will need to adjust insulin regimen given decreased creatinine clearance - Correction scale insulin # Dyslipidemia - Continue home rosuvastatin # Obstructive Sleep Apnea # Morbid Obesity - BMI 54.7 kg/m2 - May use home CPAP - Lifestyle modifications Frank Zuniga M.D.
--- NOTE | 2022-12-28 17:59 | RAD REPORT ---
EXAM DESCRIPTION: CT - Head Brain Wo Cont - 12/28/2022 5:51 pm CLINICAL HISTORY: HTN, headache COMPARISON: No comparisons TECHNIQUE: All CT scans are performed using dose optimization technique as appropriate and may inclu de automated exposure control or mA/KV adjustment according to patient size. FINDINGS: No intracranial hemorrhage, hydrocephalus or extra-axial fluid collection.No areas of brai n edema or evidence of midline shift. The paranasal sinuses and mastoids are clear. The calvarium is intact. IMPRESSION: No acute intracranial abnormality.
[2022-12-28] MEDS ORDERED: CLONIDINE 0.1 MG/PATCH TD SCH (21:00)
[2022-12-28] MEDS: ROSUVASTATIN 10 MG TAB PO SCH (22:28)
[2022-12-28] MEDS: carvediloL 12.5 MG TAB PO SCH (22:28)
--- NOTE | 2022-12-29 01:32 | P.PN ---
Date of Service: 12/29/22 At 0111 I was notified by nursing staff that patient's blood sugar had dropped to the high 40s, she was given a snack/juice and blood sugar had improved. During that time she was complaining of right lower extremity tingling, I went to examine the patient she reports that her symptoms of the tingling are rapidly improving, it was also noted that her blood pressure had been running quite high and was now around 111 systolic. No objective weakness or unilateral deficits were noted NIH is currently 0, she complains of mild tingling to the right lower extremity. She had a CT scan of her head earlier today which was negative for acute findings. Will monitor closely with neurochecks q2h for now, not a candidate for TNK now given her rapidly improving symptoms. We will continue to monitor closely.
[2022-12-29 05:21] LABS: Potassium 4.1 mEq/L (3.5-5.1)
--- NOTE | 2022-12-29 06:57 | ECHO ---
HEIGHT: 5 ft 0 in WEIGHT: 280 lb 0 oz DATE OF STUDY: 12/28/[address]: Shelby Mcdonald 2-DIMENSIONAL: YES M.MODE: YES DOPPLER: YES COLOR FLOW: YES TDS: NO PORTABLE: YES DEFINITY: NO BUBBLE STUDY: NO DIAGNOSIS: CONGESTIVE EXCERBATION CARDIAC HISTORY: CATHERIZATION: SURGERY: PROSTHETIC VALVE: PACEMAKER: MEASUREMENTS (cm) DIASTOLIC (NORMALS) SYSTOLIC (NORMALS) IVSd 1.3 (0.6-1.2) LA Diam 4.5 (1.9-4.0) LVEF 64% LVIDd 4.2 (3.5-5.7) LVIDs 2.7 (2.0-3.5) %FS 35% LVPWd 1.4 (0.6-1.2) Ao Diam 2.4 (2.0-3.7) 2 DIMENSIONAL ASSESSMENT: RIGHT ATRIUM: NORMAL LEFT ATRIUM: ENLARGED RIGHT VENTRICLE: NORMAL LEFT VENTRICLE: LVH TRICUSPID VALVE: MILD TR MITRAL VALVE: MILD MR PULMONIC VALVE: NORMAL AORTIC VALVE: NORMAL PERICARDIAL EFFUSION: NONE AORTIC ROOT: NORMAL LEFT VENTRICULAR WALL MOTION: NORMAL DOPPLER/COLOR FLOW: SEE BELOW COMMENTS: 1. NORMAL LEFT VENTRICULAR EJECTION FRACTION 60-65% WITH NORMAL WALL MOTION. 2. MODERATE CONCENTRIC LEFT VENTRICULAR HYPERTROPHY. 3. LEFT ATRIAL ENLARGEMENT. 4. GRADE I DIASTOLIC DYSFUNCTION. 5. MILD MITRAL REGURGITATION. 6. MILD TRICUSPID REGURGITATION. TECHNOLOGIST: Vini RAMIRES
[2022-12-29] MEDS: INSULIN -REGULAR HUMAN 50 UNIT/0.5 ML ML SQ SCH ×4 (07:30→20:33)
[2022-12-29] MEDS ORDERED: INSULIN 70/30 100 UNITS/ML SQ SCH (07:30)
[2022-12-29] MEDS: ENOXAPARIN 30 MG/0.3 ML SQ SCH (08:54)
[2022-12-29] MEDS: SPIRONOLACTONE 25 MG TABLET PO SCH (08:54)
[2022-12-29] MEDS: carvediloL 12.5 MG TAB PO SCH ×2 (08:55→20:32)
[2022-12-29] MEDS: GABAPENTIN 300 MG CAP PO SCH ×2 (08:55→20:32)
[2022-12-29] MEDS: HYDRALAZINE HCL 25 MG TABLET PO SCH ×3 (08:55→20:32)
[2022-12-29] MEDS: ASPIRIN 81 MG CHEWABLE TABLET PO SCH (08:55)
[2022-12-29] MEDS: FUROSEMIDE 40 MG/4 ML VIAL IV SCH ×2 (08:56→20:32)
--- NOTE | 2022-12-29 11:51 | PN ---
The patient was admitted to Dr. Zuniga with hypertension, diabetes, chronic renal disease, diastolic d ysfunction. Her creatinine is 2.68. Her creatinine is stable. I recommended that we take her off n ifedipine, increase her Coreg, diurese her. Echocardiogram showed diastolic dysfunction, normal ejec tion fraction. Patient is improving, diuresing. I think she is ready to be discharged. We will see her in the office soon. SAM/ANDERSON Voice ID: [id number] Report ID: [id number]
[2022-12-29] MEDS: CLONIDINE 0.2 MG/PATCH TD SCH ×2 (12:15→20:33)
[2022-12-29] MEDS: VALSARTAN 80 MG TAB PO SCH (12:52)
[2022-12-29] MEDS ORDERED: METOLAZONE 2.5 MG TABLET PO SCH (13:00)
[2022-12-29] MEDS: INSULIN 70/30 100 UNITS/ML SQ SCH (16:35)
--- NOTE | 2022-12-29 16:58 | P.PN ---
Subjective Date of Service: 12/29/22 Chief Complaint: BLE swelling, SOB Overnight, she had another episode of hypoglycemia. She developed numbness along her lower extremity, which corrected when her glucose corrected. It seems most likely that this was a incident of neuroglycopenia. She currently reports no symptoms. She continues to display edema, would likely benefit from an additional day of IV diuresis. She denies any chest pain, shortness of breath, or palpitations. Review of Systems 10-point ROS is otherwise unremarkable Cardiovascular: Edema Neurological: Numbness Physical Examination - Vital Signs Temperature: 97.5 F Blood Pressure: 145/64 Pulse: 65 Respirations: 16 Pulse Ox (%): 97 Assessment And Plan - Plan - Physical Exam General: Alert, In no apparent distress, Oriented x3 HEENT: Atraumatic, Mucous membr. moist/pink, Sclerae nonicteric Neck: JVD not distended (difficult to assess given habitus) Respiratory: Diminished, Crackles/rales (faint bibasilar) Cardiovascular: Regular rate/rhythm, No murmurs, Edema (2+ BLE) Gastrointestinal: Normal bowel sounds, Soft, Non-distended, No tenderness Musculoskeletal: No clubbing Integumentary: No rashes Neurological: Normal speech, Normal affect # Hypertensive Emergency with Acute on Chronic Decompensated Diastolic Congestive Heart Failure with Preserved Ejection Fraction - Consult Cardiology and spoke with Dr. Morelos - recommendations appreciated - Chest x-ray = "moderate CHF." - CT head = "no acute intracranial abnormality." - Serial troponin: 44.0 -> 48.7 -> 48.0 - Transthoracic echocardiogram = "1. normal left ventricular ejection fraction 60-65% with normal wall motion. 2. moderate concentric left ventricular hypertrophy. 3. left atrial enlargement. 4. grade I diastolic dysfunction. 5. mild mitral regurgitation. 6. mild tricuspid regurgitation." - Diuresis with IV furosemide for today - Continue carvedilol, hydralazine, spironolactone - Daily weights - Strict I/O - Cardiac diet, 1.5 L fluid restriction, 2 g Na restriction # KDIGO Stage I Acute Kidney Injury on likely Chronic Kidney Disease Stage III - Nephrology consulted and spoke with Dr. Lockwood - recommendations appreciated - Creatinine = 2.65 -> 2.68 -> 2.77 (creatinine was 1.39 on 01/16/2021) - Urinalysis = 3+ glucose, 4+ protein - IV diuretics as mentioned above - Monitor creatinine and urine output - If worsening, obtain renal ultrasound - Renally dose medications # Hyperglycemia followed by Hypoglycemia in Type II Diabetes Mellitus # Lower Extremity Numbness likely due to Neuroglycopenia - resolved - Will need to adjust insulin regimen given decreased creatinine clearance - Reduced insulin dose by 50 % - Correction scale insulin # Dyslipidemia - Continue home rosuvastatin # Obstructive Sleep Apnea # Morbid Obesity - BMI 54.7 kg/m2 - May use home CPAP - Lifestyle modifications Frank Zuniga M.D.
--- NOTE | 2022-12-29 17:15 | P.PN ---
Nephrology note: (S) Pt reports some continued dyspnea although off BIPAP when seen and peripheral edema. (O) Vitals reviewed in the EMR General: Oriented x3, Cooperative HEENT: Atraumatic, sclera anicteric, LFNC Neck: Supple Respiratory: b/l air entry, reduced BS at the bases Cardiovascular: Non tachy, no cardiac gallop heart sounds appreciated, peripheral edema noted Gastrointestinal: Soft, obese, NT Musculoskeletal: No clubbing, No contractures Integumentary: No rashes, No cyanosis, Skin lesion Neurological: Normal speech, awake, alert, non focal Laboratory Data (last 24 hrs) Reviewed in the EMR Imagings Data: EXAM DESCRIPTION: RAD - Chest Single View - 12/27/2022 12:46 pm CLINICAL HISTORY: DYSPNEA Chest pain. COMPARISON: Chest Single View dated 12/29/2020 FINDINGS: Portable technique limits examination quality. Moderate bilateral pulmonary opacities are present compatible with pulmonary edema. The heart is mildly to moderately enlarged. No displaced fractures. IMPRESSION: Moderate CHF. Echocardiogram 12-29-20 LEFT VENTRICULAR WALL MOTION: NORMAL. DOPPLER/COLOR FLOW: NORMAL. COMMENTS: MILD CONCENTRIC LEFT VENTRICULAR HYPERTROPHY. NO WALL MOTION ABNORMALITY. NO MITRAL VALVE PROLAPSE. NO EFFUSION. EXAM DESCRIPTION: US - Abdomen Exam Complete - 05/06/2021 11:08 am CLINICAL HISTORY: K59.00, R10.12 COMPARISON: Abdomen Exam Limited dated 01/16/2021 FINDINGS: Gallbladder is not identified and surgically absent by history. No mass or abnormal fluid collection in the gallbladder fossa. Common bile duct is normal with no common duct stone identified. Liver shows a coarsened, increased echogenicity with poor sonographic penetrance. This is nonspecific but typically a diffuse fatty infiltration process. Sensitivity for parenchymal assessment is limited in the setting of fatty infiltration. No focal liver lesion identifiable. No portal vein abnormality seen. Liver is prominent at 20 cm. Spleen is 9 cm with no focal splenic abnormality. The pancreas is normal. No hydronephrosis or suspicious mass in either kidney. A 2 centimeter incidental left renal cyst present. Aorta and IVC show no significant finding. No ascites or bulky lymphadenopathy. IMPRESSION: Diffuse fatty infiltration of a prominent size 20 centimeter liver. No focal liver lesion could be identified. Status post cholecystectomy with no abnormal biliary tree finding. Conclusions/Impression: Stage I ROBERT may be CRS Underlying CKD IIIb/IV with Proteinuria -Cont to monitor renal function closely with diuresis HTN with CKD/CHF -target BP < 130/80, will restart low dose ARB if tolerated (Valsartan ordered as the therapeutic interchange for home med Irbesartan) Diastolic CHF, A/C Hypervolemia -Continue IV Lasix for another 24h. -Resumed Spironolactone, and will resume Metolazone. Monitor lytes. Kevin Lockwood MD, MARGARITA
[2022-12-29] MEDS: ROSUVASTATIN 10 MG TAB PO SCH (20:32)
[2022-12-30 04:42] LABS: Potassium 3.9 mEq/L (3.5-5.1)
[2022-12-30] MEDS: INSULIN -REGULAR HUMAN 50 UNIT/0.5 ML ML SQ SCH ×2 (07:20→11:56)
[2022-12-30] MEDS: ENOXAPARIN 30 MG/0.3 ML SQ SCH (08:37)
[2022-12-30] MEDS: carvediloL 12.5 MG TAB PO SCH (08:37)
[2022-12-30] MEDS: INSULIN 70/30 100 UNITS/ML SQ SCH (08:37)
[2022-12-30] MEDS: FUROSEMIDE 40 MG/4 ML VIAL IV SCH (08:37)
[2022-12-30] MEDS: GABAPENTIN 300 MG CAP PO SCH (08:37)
[2022-12-30] MEDS: VALSARTAN 80 MG TAB PO SCH (08:37)
[2022-12-30] MEDS: SPIRONOLACTONE 25 MG TABLET PO SCH (08:37)
[2022-12-30] MEDS: HYDRALAZINE HCL 25 MG TABLET PO SCH (08:37)
[2022-12-30] MEDS: ASPIRIN 81 MG CHEWABLE TABLET PO SCH (08:37)
[2022-12-30 09:25] VITALS: TEMP 97
[2022-12-30 10:07] VITALS: O2SAT 99
--- NOTE | 2022-12-30 11:18 | P.PN ---
Nephrology note: (S) Pt reports improvement in dyspnea and peripheral edema, has been OOB and ambulating. No CP. Diuretic regimen reviewed with pt (O) Vitals reviewed in the EMR General: Oriented x3, Cooperative HEENT: Atraumatic, sclera anicteric, LFNC Neck: Supple Respiratory: b/l air entry, reduced BS at the bases Cardiovascular: Non tachy, no cardiac gallop heart sounds appreciated, peripheral edema noted Gastrointestinal: Soft, obese, NT Musculoskeletal: No clubbing, No contractures Integumentary: No rashes, No cyanosis, Skin lesion Neurological: Normal speech, awake, alert, non focal Laboratory Data (last 24 hrs) Reviewed in the EMR Imagings Data: EXAM DESCRIPTION: RAD - Chest Single View - 12/27/2022 12:46 pm CLINICAL HISTORY: DYSPNEA Chest pain. COMPARISON: Chest Single View dated 12/29/2020 FINDINGS: Portable technique limits examination quality. Moderate bilateral pulmonary opacities are present compatible with pulmonary edema. The heart is mildly to moderately enlarged. No displaced fractures. IMPRESSION: Moderate CHF. Echocardiogram 12-29-20 LEFT VENTRICULAR WALL MOTION: NORMAL. DOPPLER/COLOR FLOW: NORMAL. COMMENTS: MILD CONCENTRIC LEFT VENTRICULAR HYPERTROPHY. NO WALL MOTION ABNORMALITY. NO MITRAL VALVE PROLAPSE. NO EFFUSION. EXAM DESCRIPTION: US - Abdomen Exam Complete - 05/06/2021 11:08 am CLINICAL HISTORY: K59.00, R10.12 COMPARISON: Abdomen Exam Limited dated 01/16/2021 FINDINGS: Gallbladder is not identified and surgically absent by history. No mass or abnormal fluid collection in the gallbladder fossa. Common bile duct is normal with no common duct stone identified. Liver shows a coarsened, increased echogenicity with poor sonographic penetrance. This is nonspecific but typically a diffuse fatty infiltration process. Sensitivity for parenchymal assessment is limited in the setting of fatty infiltration. No focal liver lesion identifiable. No portal vein abnormality seen. Liver is prominent at 20 cm. Spleen is 9 cm with no focal splenic abnormality. The pancreas is normal. No hydronephrosis or suspicious mass in either kidney. A 2 centimeter incidental left renal cyst present. Aorta and IVC show no significant finding. No ascites or bulky lymphadenopathy. IMPRESSION: Diffuse fatty infiltration of a prominent size 20 centimeter liver. No focal liver lesion could be identified. Status post cholecystectomy with no abnormal biliary tree finding. Conclusions/Impression: Stage I ROBERT may be CRS Underlying CKD IIIb/IV with Proteinuria -Cont to monitor renal function closely with diuresis, overall stable and near baseline. HTN with CKD/CHF -target BP < 130/80, did restart low dose ARB if tolerated (Valsartan ordered as the therapeutic interchange for home med Irbesartan). Will resume Irbesartan at 1/2 tab at home on discharge Diastolic CHF, A/C Hypervolemia -Improved fluid status, will discharge on Bumex 1 mg PO BID, Spironolactone 25 mg qd and Metolazone 2.5 mg q48h. Pt to do repeat labs early this week and will set pt up for f/u in clinic. Kevin Lockwood MD, MARGARITA
[2022-12-30 11:25] VITALS: BP 132/63
--- NOTE | 2022-12-30 13:13 | P.DS ---
Admission Date: 12/27/22 Discharge Date: 12/30/22 Disposition: ROUTINE DISCHARGE Discharge Condition: GOOD Reason for Admission: BLE swelling, SOB Consultations: 1. Cardiology 2. Nephrology Hospital Course: DIAGNOSES: # Hypertensive Emergency with Acute on Chronic Decompensated Diastolic Congestive Heart Failure with Preserved Ejection Fraction # Hyperglycemia followed by Hypoglycemia in Type II Diabetes Mellitus # Chronic Kidney Disease Stage IV # Lower Extremity Numbness likely due to Neuroglycopenia - resolved # Dyslipidemia # Obstructive Sleep Apnea # Morbid Obesity - BMI 54.7 kg/m2 HOSPITAL COURSE: Ms. Caprice Mojica is a pleasant 62 year old female with a past medical history significant for chronic diastolic congestive heart failure, type II diabetes mellitus, dyslipidemia, obstructive sleep apnea who was admitted to the [facility] on 12/27/2022 for shortness of breath and bilateral lower extremity edema. She was admitted to the Medicine service. Upon further evaluation, she was found to be hypertensive with an acute on chronic diastolic congestive heart failure exacerbation. Her chest x-ray revealed, "moderate CHF." Her transthoracic echocardiogram revealed, "1. normal left ventricular ejection fraction 60-65% with normal wall motion. 2. moderate concentric left ventricular hypertrophy. 3. left atrial enlargement. 4. grade I diastolic dysfunction. 5. mild mitral regurgitation. 6. mild tricuspid regurgitation." She was treated with IV diuretics, and over the course of the hospitalization, her symptoms improved significantly. She was incidentally found to have an elevated creatinine. Nephrology was consulted and she was evaluated by Dr. Lockwood. It was initially thought that she had an acute kidney injury, but her creatinine never improved. It seems most likely that she has underlying chronic kidney disease stage IV. He has cleared her for discharge with bumetanide 1 mg BID, spironolactone 25 mg daily, metolazone 2.5 mg q48hr, and irbesartan 75 mg daily. Of note, her hospital course was complicated by hypoglycemia, which was likely due to decreased renal clearance of insulin. Her insulin dose was reduced by 50 % (from 20 units to 10 units), with improvement in her glucose levels. On 12/30/2022, she was seen on morning rounds and deemed medically stable for discharge. She was discharged with instructions to schedule follow-up appointments with her PCP (Dr. Lowery), with Cardiology (Dr. Morelos), and with Nephrology (Dr. Lockwood). She was provided prescriptions for bumetanide, spironola ctone, metolazone, and irbesartan. She was given the opportunity to ask questions and reported no further questions. Furthermore, all questions were answered to the best of my ability. A copy of this discharge summary will be sent to the above providers to facilitate continuity of care. Today, I personally spent 25 minutes on her case, of which greater than 50% of the time was spent in patient education, counseling, and coordination of care as described above. - Physical Exam General: Alert, In no apparent distress, Oriented x3 HEENT: Atraumatic, Mucous membr. moist/pink, Sclerae nonicteric Neck: JVD not distended Respiratory: Diminished, Clear to auscultation without wheezes, rhonchi, or rales Cardiovascular: Regular rate/rhythm, No murmurs, Edema (trace BLE) Gastrointestinal: Normal bowel sounds, Soft, Non-distended, No tenderness Musculoskeletal: No clubbing Integumentary: No rashes Neurological: Normal speech, Normal affect Vital Signs/Physical Exam: Temp Pulse Resp BP Pulse Ox 97 F 58 16 132/63 96 12/30/22 11:24 12/30/22 11:24 12/30/22 11:24 12/30/22 11:24 12/30/22 11:24 Laboratory Data at Discharge: WBC 7.20 thou/uL (4.3-10.9) 12/28/22 01:54 Hgb 11.9 g/dL (12.0-15.0) L 12/28/22 01:54 Hct 37.1 % (36.0-45.0) 12/28/22 01:54 Plt Count 156 thou/uL (152-406) 12/28/22 01:54 Sodium 135 mEq/L (136-145) L 12/30/22 03:39 Potassium 3.9 mEq/L (3.5-5.1) 12/30/22 03:39 BUN 48 mg/dL (7-18) H 12/30/22 03:39 Creatinine 2.76 mg/dL (0.55-1.02) H 12/30/22 03:39 Glucose 137 mg/dL (74-106) H 12/30/22 03:39 Phosphorus 3.4 mg/dL (2.5-4.9) 12/27/22 14:21 Magnesium 2.0 mg/dL (1.6-2.4) 12/29/22 04:29 Total Bilirubin 0.2 mg/dL (0.2-1.0) 12/27/22 14:21 AST 15 U/L (15-37) 12/27/22 14:21 ALT 19 U/L (13-56) 12/27/22 14:21 Alkaline Phosphatase 73 U/L (45-117) 12/27/22 14:21 Home Medications: Fluticasone/Umeclidin/Vilanter [Trelegy Ellipta 200-62.5-25] 1 puff IH DAILY 12/29/20 Rosuvastatin [Crestor*] 2 tab PO BEDTIME 12/29/20 Carvedilol [Coreg] 6.25 mg PO BID 01/26/21 Clonidine [Catapres-Tts 1] 0.2 mg TOP Q7D 12/27/22 Gabapentin 300 mg PO BID 12/27/22 Hydralazine [Apresoline*] 50 mg PO TID 12/27/22 Aspirin Chewable [Aspirin Chewable*] 81 mg PO DAILY tab.chew 12/30/22 Bumetanide [Bumex*] 1 mg PO BID #60 tab 12/30/22 Insulin 70/30 NPH/Reg Human [Novolin 70/30*] 10 unit SQ BIDAC #0 ml 12/30/22 Irbesartan 75 mg PO DAILY #30 tab 12/30/22 Spironolactone [Aldactone*] 1 tab PO DAILY #30 tab 12/30/22 metOLazone [Zaroxolyn*] 2.5 mg PO Q48H #15 tab 12/30/22 New Medications: Spironolactone [Aldactone*] 1 tab PO DAILY #30 tab Bumetanide [Bumex*] 1 mg PO BID #60 tab Irbesartan 75 mg PO DAILY #30 tab metOLazone [Zaroxolyn*] 2.5 mg PO Q48H #15 tab Physician Discharge Instructions: 1. Please call and schedule a follow-up appointment with your PCP (Dr. Lowery) in 3-5 days 2. Please call and schedule a follow-up appointment with Cardiology (Dr. Ramírez) in 5-7 days 3. Please call and schedule a follow-up appointment with Nephrology (Dr. Lockwood) in 57 days - Please keep a journal and log your blood pressure two times per day. Please bring this journal to your appointments. - Please reduce your insulin dose to 10 units. - Please take bumetanide two times per day - Please take spironolactone one time per day - Please reduce your irbesartan dose from 150 mg to 75 mg Diet: Renal Activity: Ad itz Followup: Irvin Lowery DO [Primary Care Provider] - Tha Morelos MD [ACTIVE - CAN ADMIT] - Kevin Lockwood [ACTIVE - CAN ADMIT] - Time spent managing pt's care (in minutes): 25
[2022-12-30] MEDS ORDERED: BUMETANIDE 1 MG TABLET PO SCH (17:00)
== END 2022-12-30 15:40 | disposition home or self-care (01) | DRG 291 ==
LOC: ER 11:33 → ERHOLD 16:58 → 4TH 19:26
PROVIDERS: ADMIT Internal Medicine; ATTEND Internal Medicine
PROC: 5A09457 Assistance with Respiratory Ventilation, 24-96 Consecutive Hours, Continuous Positive Airway Pressure (ICD-10-PCS; principal; 2022-12-27)
DX: I13.0 Hypertensive heart and chronic kidney disease with heart failure and stage 1 through stage 4 chronic kidney disease, or unspecified chronic kidney disease (principal); I50.33 Acute on chronic diastolic (congestive) heart failure; N17.9 Acute kidney failure, unspecified; N18.4 Chronic kidney disease, stage 4 (severe); Z68.43 Body mass index [BMI] 50.0-59.9, adult; I16.1 Hypertensive emergency; E66.01 Morbid (severe) obesity due to excess calories; E11.22 Type 2 diabetes mellitus with diabetic chronic kidney disease; E11.42 Type 2 diabetes mellitus with diabetic polyneuropathy; E11.65 Type 2 diabetes mellitus with hyperglycemia; E11.649 Type 2 diabetes mellitus with hypoglycemia without coma; E78.5 Hyperlipidemia, unspecified; E03.9 Hypothyroidism, unspecified; I08.1 Rheumatic disorders of both mitral and tricuspid valves; G47.33 Obstructive sleep apnea (adult) (pediatric); Z88.0 Allergy status to penicillin; Z79.4 Long term (current) use of insulin; Z79.01 Long term (current) use of anticoagulants; Z79.82 Long term (current) use of aspirin; Z99.89 Dependence on other enabling machines and devices; Z79.899 Other long term (current) drug therapy; Z79.890 Hormone replacement therapy
CPT/HCPCS: 36415; 70450; 71045; 80048; 80076; 81001; 82947; 83735; 83880; 84100; 84484; 85025; 93005; 93306; 94660; 96374; 96375; 99285; J0360; J1650; J1815; J1940; J3475

== ENCOUNTER 2023-02-17 19:56 | Observation (INO) | payer OTHER ==
--- OUTSIDE RECORDS SUMMARY | 2023-02-17 21:42 | XMS REPORT | Continuity of Care Document ---
:1960 Author Organization [facility] t Address [address] [facility] [address] [place] [address] Care Team Providers Name Role Phone Popeye Granados MD Primary Care Physician MIGUEL LARA Attending Clinician Unavailable HARVEY NAVARRO Attending Clinician Unavailable JACK CRAIN Attending Clinician Unavailable POLA MCMAHON Attending Clinician Unavailable KD KING Attending Clinician Unavailable [id number] Attending Clinician Unavailable ROBERTO MALIK Attending Clinician Unavailable LAB90 Attending Clinician Unavailable LEIGHTON LUDWIG Attending Clinician Unavailable KAYLIE AZUL Attending Clinician Unavailable TAHMINA AZUL Attending Clinician Unavailable ANU_EVELIN Attending Clinician Unavailable FB, TECH 1 Attending Clinician Unavailable JEAN CARLOS SAMUEL Attending Clinician Unavailable MD NOEMI Attending Clinician Unavailable SYLVIA NAVARRO Attending Clinician Unavailable [id number] Attending Clinician Unavailable Doctor Unassigned, [place] Attending Clinician Unavailable ENRIKE MONAHAN Attending Clinician Unavailable JESU Attending Clinician Unavailable Mago Cobb MD Attending Clinician MAGO COBB Attending Clinician Unavailable Miguel aLra MD Attending Clinician Eliazar Nicolas CRNA Attending Clinician Michael Ryan MD Attending Clinician Only, Adc Test Attending Clinician Unavailable Michael Attending Clinician Unavailable Raz Hollis Attending Clinician MIGUEL LARA Admitting Clinician Unavailable ROBIN Admitting Clinician Unavailable JESU Admitting Clinician Unavailable MAGO COBB Admitting Clinician Unavailable Miguel Lara MD Admitting Clinician Michael Admitting Clinician Unavailable Payers Payer Name Policy Type Policy Number Effective Date Expiration Date [facility] [id number] 2020 CHOICE 00:00:00 [facility] 9 [id number] 2022 [facility]: O ON 00:00:00 FORMERLY [facility] [id number] CHOICE (HMO) [facility] [id number] 2012 (POS II) 00:00:00 Problems Condition Condition Condition Status Onset Resolution Last Treating Co mments Source Name Details Category Date Date Treatment Clinician Date Well adult Well adult Disease Active K elsey exam exam 12-18 Seybold 00:00: - 00 Externa l Immunodefi Immunodefi Disease Active K elsey ciency due ciency due 12-18 to to 00:00: - conditions conditions 00 Ex terna classified classified l elsewhere elsewhere Stage 4 Stage 4 Disease Active [facility] chronic chronic 11-19 Seybold kidney kidney 00:00: - disease disease 00 Externa l Hypertensi Hypertensi Disease Active K elsey on on 10-30 Seybold 00:00: - 00 Externa l Simple Simple Disease Active [facility] chronic chronic 3-13 Seybold bronchitis bronchitis 00:00: - 00 Externa [...] Univers goiter goiter 4-03 ity of 00:00: [place] [address] Medical Branch Paresthesi Paresthes Problem Active 2019-01-25 Memoria a ia 11:26:00 l (finding) (finding) Cedric tianna Active Problem 01/25/2019 [facility] Shoulder Shoulder Problem Active 2019-01-25 Memoria pain pain 11:26:00 l (finding) (finding) Cedric tianna Active Problem 01/25/2019 [facility] Diabetes Diabetes Problem Active 2019-01-25 Memoria mellitus mellitus 11:26:00 l (disorder) (disorder) He rmann Active Problem 01/25/2019 [facility] Morbid Morbid Problem Active 2019-01-25 Darek omer obesity obesity 11:26:00 l (disorder) (disorder) He rmann Active Problem 01/25/2019 [facility] Neck pain Neck Problem Active 2019-01-25 moria (finding) pain 11:26:00 l (finding) [place] Active Problem 01/25/2019 [facility] Allergies, Adverse [...] 00:00: [place] reaction 00 [facility] s [facility] NO KNOWN Allergy Active [place] FOOD to da ALLERGIE substanc [facility] penicill penicill Active Memori a ins ins l [place] Social History Social Habit Start Date Stop Date Quantity Comments Source Exposure to Not sure [facility] SARS-CoV-2 (event) [facility] Alcohol intake 2023-02-15 2023-02-15 Lifetime [facility] Vasquez bold - 00:00:00 00:00:00 non-drinker External (finding) Tobacco use and 2022-11-13 2022-11-13 Smokeless Chapis Cano ybold - exposure 00:00:00 00:00:00 tobacco non-user External History of Social 2022-11-13 2022-11-13 Chapis Barrientosold - function 00:00:00 00:00:00 External Sex Ass[birth year] At [birth year] [facility] Smoking Status Start Date Stop Date Source Former Smoker Tomasa Rodríguez [facility] Program Tobacco smoking consumption [facility] unknown Social History [facility] Medications Ordered Filled Start Stop Current Ordering Indication Dosage Frequency Signature Comments Components Source Medication Medication Date Date Medication? Clinician (SIG) Name Name Insulin 2022- No 30U Inject 30 Muna ey NPH, 6-27 06-27 units into Seybold Human,, 13:54: 00:00 the skin 2 - Isophane, 09 :00 times Externa 100 UNIT/ML daily l subcutaneou s Suspension INSULIN 2022- No Novolin R Muna ey ISOPHANE & 6-27 06-27 Regular Seybo ld REG MIX, 13:54: 00:00 U100 - HUMAN, 00 :00 Insulin Externa (NOVOLIN l MIX 70/30) (70-30) 100 UNIT/ML subcutaneou s Suspension Aspirin 81 Yes [id number] 81mg Take 1 Chapis MG oral 6-27 tablet (81 Seybol d Tablet 13:08: mg total) - Delayed 13 by mouth Externa Response daily l Fluticasone Yes Trelegy Dashawn sey -Umeclidin- -27 Ellipta Seybo ld Vilant 13:08: - (Trelegy 13 Externa Ellipta) l 100-62.5-25 MCG/ACT inhalation AEROSOL POWDER, BREATH ACTIVATED Albuterol Yes Ventolin Muna ey Sulfate 6-27 HFA Seybold (VENTOLIN 13:08: - HFA IN) 13 Externa l Insulin 2022- No Novolin R Muna ey Zinc Human 6-13 02-27 Regular Seybo ld (NOVOLIN L 13:07: 00:00 U-100 - SC) 36 :00 Insuln Externa l Insulin Yes [id number] Inject 45 K elsey Detemir 6-27 units at Seybold (Levemir 00:00: bedtime, - FlexPen) 00 increase Externa 100 UNIT/ML by 2 units l subcutaneou every 4 s Solution days until Pen-injecto fasting r glucose <140 (maximum 6 units) Insulin Yes 30U Inject 30 Kelse y NPH, 6-22 units into Seybold Human,, 09:53: the skin 2 - Isophane, 30 times Externa 100 UNIT/ML daily l subcutaneou s Suspension Aspirin 81 Yes [id number] 81mg Take 1 Chapis MG oral 6-22 tablet (81 Seybol d Tablet 09:53: mg total) - Delayed 30 by mouth Externa Response daily l Insulin Yes Novolin R Kelse y Zinc Human - Regular Seybol d (NOVOLIN L 09:53: U-100 - SC) 30 Insuln Externa l Fluticasone Yes Trelegy Dashawn sey -Umeclidin- 02-08 Ellipta Seybo ld Vilant 09:53: - (Trelegy 30 Externa Ellipta) l 100-62.5-25 MCG/ACT inhalation AEROSOL POWDER, BREATH ACTIVATED Albuterol Yes Ventolin Muna ey Sulfate 02-08 HFA Seybold (VENTOLIN 09:53: - HFA IN) 30 Externa l Ciclopirox Yes [id number] Apply to Chapis Olamine -22 all Seybold 0.77 % 00:00: affected - apply 00 toenails Externa externally daily l Cream Ammonium Yes [id number] Apply to Chapis Lactate 6-22 bilateral Seybold (Lac-Hydrin 00:00: feet daily - ) 12 % 00 Externa apply l externally Cream Ciclopirox Yes [id number] Apply to Chapis Olamine 6-22 all Seybold 0.77 % 00:00: affected - apply 00 toenails Externa externally daily l Cream Ammonium Yes [id number] Apply to Chap[facility] Lactate 6-22 bilateral Seybold (Lac-Hydrin 00:00: feet daily - ) 12 % 00 Externa apply l externally Cream Levothyroxi Yes [id number] 100ug Take 1 [facility] ne Sodium 6-12 tablet Seybold 100 MCG 00:00: (100 mcg - oral Tablet 00 total) by Ext courtney mouth l daily Levothyroxi Yes [id number] 88ug Take 1 [facility] ne Sodium 6-12 tablet (88 Seyb old 88 MCG oral 00:00: mcg total) - Tablet 00 by mouth Externa daily l Levothyroxi 2022-0 Yes [id number] 100ug Take 1 [facility] ne Sodium 6-12 tablet Seybold 100 MCG 00:00: (100 mcg - oral Tablet 00 total) by Ext courtney mouth l daily Levothyroxi 2022-0 Yes [id number] 88ug Take 1 [facility] ne Sodium 6-12 tablet (88 Seyb old 88 MCG oral 00:00: mcg total) - Tablet 00 by mouth Externa daily l Carvedilol 2022-0 Yes [id number] 25mg Take 1 K elsey 25 MG oral 6-08 tablet (25 Sey bold Tablet 00:00: mg total) - 00 by mouth 2 Externa times l daily Montelukast 2022-0 Yes [id number] 10mg QD Take 1 [facility] (SINGULAIR) 6-08 tablet (10 Se ybold 10 MG oral 00:00: mg total) - Tablet 00 by mouth Externa tablet nightly as l needed cloNIDine 2022-0 Yes [id number] 1{patch Apply 1 Chapis 0.2 MG/24HR 6-08 } patch Seybold transdermal 00:00: topically - PATCH 00 every 7 Externa WEEKLY days l Albuterol 2022-0 Yes [id number] .63mg Q.[id number] Take 3 mL [facility] Sulfate 6-08 [id number] (0.63 mg Se ybold 0.63 MG/3ML 00:00: 3D total) by - inhalation 00 nebulizati Ext courtney Inhalant on 3 times l Solution daily as needed for wheezing Carvedilol 2022-0 Yes [id number] 25mg Take 1 K elsey 25 MG oral 6-08 tablet (25 Sey bold Tablet 00:00: mg total) - 00 by mouth 2 Externa times l daily Montelukast 2022-0 Yes [id number] 10mg QD Take 1 [facility] (SINGULAIR) 6-08 tablet (10 Se ybold 10 MG oral 00:00: mg total) - Tablet 00 by mouth Externa tablet nightly as l needed cloNIDine 2022-0 Yes [id number] 1{patch Apply 1 Chap[facility] 0.2 MG/24HR 6-08 } patch Seybold transdermal 00:00: topically - PATCH 00 every 7 Externa WEEKLY days l Albuterol 2022-0 Yes [id number] .63mg Q.[id number] Take 3 mL [facility] Sulfate 6-08 [id number] (0.63 mg Se ybold 0.63 MG/3ML 00:00: 3D total) by - inhalation 00 nebulizati Ext courtney Inhalant on 3 times l Solution daily as needed for wheezing Carvedilol 0 Yes [id number] 25mg Take 1 K elsey 25 MG oral 6-08 tablet (25 Sey bold Tablet 00:00: mg total) - 00 by mouth 2 Externa times l daily Montelukast 2022-0 Yes [id number] 10mg QD Take 1 [facility] (SINGULAIR) 6-08 tablet (10 Se ybold 10 MG oral 00:00: mg total) - Tablet 00 by mouth Externa tablet nightly as l needed cloNIDine Yes [id number] 1{patch Apply 1 [facility] 0.2 MG/24HR 08 } patch Seybold transdermal 00:00: topically - PATCH 00 every 7 Externa WEEKLY days l Albuterol 0 Yes [id number] .63mg Q.[id number] Take 3 mL [facility] Sulfate -08 [id number] (0.63 mg Se ybold 0.63 MG/3ML 00:00: 3D total) by - inhalation 00 nebulizati Ext courtney Inhalant on 3 times l Solution daily as needed for wheezing Valacyclovi 0 Yes [id number] 500mg Take 1 Chap[facility] r HCl 6-01 tablet Seybold (Valtrex) 00:00: (500 mg - 500 MG oral 00 total) by Ext courtney Tablet mouth l daily Valacyclovi 2022-0 Yes [id number] 500mg Take 1 [facility] r HCl 6-01 tablet Seybold (Valtrex) 00:00: (500 mg - 500 MG oral 00 total) by Ext courtney Tablet mouth l daily Valacyclovi 2022-0 Yes [id number] 500mg Take 1 [facility] r HCl 6-01 tablet Seybold (Valtrex) 00:00: (500 mg - 500 MG oral 00 total) by Ext courtney Tablet mouth l daily Levothyroxi 2022-0 Yes [id number] 200ug Take 1 [facility] ne Sodium 5-21 tablet Seybold 200 MCG 00:00: (200 mcg - oral Tablet 00 total) by Ext courtney mouth l daily Insulin 2022-0 Yes 30U Inject 30 Kelse y NPH, 5-18 units into Seybold Human,, 08:10: the skin 2 - Isophane, 32 times Externa 100 UNIT/ML daily l subcutaneou s Suspension Aspirin 81 2022-0 Yes [id number] 81mg Take 1 [facility] MG oral 5-18 tablet (81 Seybol d Tablet 08:10: mg total) - Delayed 32 by mouth Externa Response daily l Insulin 2022-0 Yes 30U Inject 30 Kelse y NPH, 5-18 units into Seybold Human,, 08:10: the skin 2 - Isophane, 32 times Externa 100 UNIT/ML daily l subcutaneou s Suspension Aspirin 81 2022-0 Yes [id number] 81mg Take 1 [facility] MG oral 5-18 tablet (81 Seybol d Tablet 08:10: mg total) - Delayed 32 by mouth Externa Response daily l Mupirocin 2022-0 Yes [id number] Apply 1 [facility] (BACTROBAN) 18 applicatio Se ybold 2 % apply 00:00: n. - externally 00 topically Exte rna Ointment 2 times l daily Cephalexin 2022-0 Yes [id number] 250mg Take 1 [facility] (Keflex) 18 capsule Seybold 250 MG oral 00:00: (250 mg - Capsule 00 total) by Externa mouth 2 l times daily Mupirocin 2022-0 Yes [id number] Apply 1 [facility] (BACTROBAN) 01-04 applicatio Se ybold 2 % apply 00:00: n. - externally 00 topically Exte rna Ointment 2 times l daily Mupirocin 2022-0 Yes [id number] Apply 1 [facility] (BACTROBAN) 18 applicatio Se ybold 2 % apply 00:00: n. - externally 00 topically Exte rna Ointment 2 times l daily Mupirocin 2022-0 Yes [id number] Apply 1 [facility] (BACTROBAN) 18 applicatio Se ybold 2 % apply 00:00: n. - externally 00 topically Exte rna Ointment 2 times l daily Cephalexin 2023-0 2023- No [id number] 250mg Take 1 [facility] (Keflex) -18 01-25 capsule Seybold 250 MG oral 00:00: 00:00 (250 mg - Capsule 00 :00 total) by Externa mouth 2 l times daily metOLazone 3-0 Yes 2.5mg Take 1 Muna ey 2.5 MG oral 5-13 tablet Seybol d Tablet 00:00: (2.5 mg - tablet 00 total) by Externa mouth l every 48 hours metOLazone 3-0 Yes 2.5mg Take 1 Muna ey 2.5 MG oral 5-13 tablet Seybol d Tablet 00:00: (2.5 mg - tablet 00 total) by Externa mouth l every 48 hours metOLazone 3-0 Yes 2.5mg Take 1 Muna ey 2.5 MG oral 5-13 tablet Seybol d Tablet 00:00: (2.5 mg - tablet 00 total) by Externa mouth l every 48 hours metOLazone 3-0 Yes 2.5mg Take 1 Muna ey 2.5 MG oral 5-13 tablet Seybol d Tablet 00:00: (2.5 mg - tablet 00 total) by Externa mouth l every 48 hours Insulin 3-0 Yes 30U Inject 30 Kelse y NPH, 5-01 units into Seybold Human,, 13:42: the skin 2 - Isophane, 12 times Externa 100 UNIT/ML daily l subcutaneou s Suspension Aspirin 81 2022-0 Yes [id number] 81mg Take 1 [facility] MG oral 5-01 tablet (81 Seybol d Tablet 13:42: mg total) - Delayed 12 by mouth Externa Response daily l Insulin 3-0 Yes 30U Inject 30 Kelse y NPH, 5-01 units into Seybold Human,, 13:42: the skin 2 - Isophane, 12 times Externa 100 UNIT/ML daily l subcutaneou s Suspension Aspirin 81 2022-0 Yes [id number] 81mg Take 1 [facility] MG oral 5-01 tablet (81 Seybol d Tablet 13:42: mg total) - Delayed 12 by mouth Externa Response daily l Bumetanide 3-0 Yes [id number] 1mg Take 1 K elsey 1 MG oral 5-01 tablet (1 Seybo ld Tablet 00:00: mg total) - 00 by mouth 2 Externa times l daily Bumetanide 2022-0 Yes [id number] 1mg Take 1 K elsey 1 MG oral 5-01 tablet (1 Seybo ld Tablet 00:00: mg total) - 00 by mouth 2 Externa times l daily Bumetanide 2022-0 Yes [id number] 1mg Take 1 K elsey 1 MG oral 5-01 tablet (1 Seybo ld Tablet 00:00: mg total) - 00 by mouth 2 Externa times l daily Bumetanide 2022-0 Yes [id number] 1mg Take 1 K elsey 1 MG oral 5-01 tablet (1 Seybo ld Tablet 00:00: mg total) - 00 by mouth 2 Externa times l daily Bumetanide 2022-0 Yes [id number] 1mg Take 1 K elsey 1 MG oral 5-01 tablet (1 Seybo ld Tablet 00:00: mg total) - 00 by mouth 2 Externa times l daily Bumetanide 2022-0 Yes [id number] 1mg Take 1 K elsey 1 MG oral 5-01 tablet (1 Seybo ld Tablet 00:00: mg total) - 00 by mouth 2 Externa times l daily Gabapentin 3-0 Yes [id number] 300mg Take 1 Chap[facility] 300 MG oral 4-24 capsule Seybo ld Capsule 00:00: (300 mg - 00 total) by Externa mouth 2 l times daily Gabapentin 3-0 Yes [id number] 300mg Take 1 [facility] 300 MG oral 4-24 capsule Seybo ld Capsule 00:00: (300 mg - 00 total) by Externa mouth 2 l times daily Gabapentin 2023-0 Yes [id number] 300mg Take 1 [facility] 300 MG oral 4-24 capsule Seybo ld Capsule 00:00: (300 mg - 00 total) by Externa mouth 2 l times daily Gabapentin 3-0 Yes [id number] 300mg Take 1 Chap[facility] 300 MG oral 4-24 capsule Seybo ld Capsule 00:00: (300 mg - 00 total) by Externa mouth 2 l times daily Gabapentin 2023-0 Yes [id number] 300mg Take 1 [facility] 300 MG oral 4-24 capsule Seybo ld Capsule 00:00: (300 mg - 00 total) by Externa mouth 2 l times daily Gabapentin 2023-0 Yes [id number] 300mg Take 1 [facility] 300 MG oral 4-24 capsule Seybo ld Capsule 00:00: (300 mg - 00 total) by Externa mouth 2 l times daily Fluticasone 2022-0 2023- No INHALE 1 K sylvie -Umeclidin- 4-18 04-18 PUFF ONCE Se ybold Vilant 13:59: 00:00 DAILY FOR - (Trelegy 36 :00 30 DAYS Externa Ellipta) l 200-62.5-25 MCG/ACT inhalation AEROSOL POWDER, BREATH ACTIVATED Insulin Yes 30U Inject 30 Kelse y NPH, 4-18 units into Seybold Human,, 13:38: the skin 2 - Isophane, 11 times Externa 100 UNIT/ML daily l subcutaneou s Suspension Aspirin 81 Yes [id number] 81mg Take 1 [facility] MG oral 4-18 tablet (81 Seybol d Tablet 13:38: mg total) - Delayed 11 by mouth Externa Response daily l Fluticasone 0 Yes 1{puff} Inhale 1 Chap[facility] -Salmeterol 4-18 puff into Sey bold (Advair 00:00: the lungs - Diskus) 00 2 times Externa 500-50 daily l MCG/ACT inhalation AEROSOL POWDER, BREATH ACTIVATED Fluticasone 0 Yes 1{puff} Inhale 1 [facility] -Salmeterol 4-18 puff into Sey bold (Advair 00:00: the lungs - Diskus) 00 2 times Externa 500-50 daily l MCG/ACT inhalation AEROSOL POWDER, BREATH ACTIVATED Fluticasone 0 Yes 1{puff} Inhale 1 Chap[facility] -Salmeterol 4-18 puff into Sey bold (Advair 00:00: the lungs - Diskus) 00 2 times Externa 500-50 daily l MCG/ACT inhalation AEROSOL POWDER, BREATH ACTIVATED Fluticasone 2022-0 Yes 1{puff} Inhale 1 [facility] -Salmeterol 4-18 puff into Sey bold (Advair 00:00: the lungs - Diskus) 00 2 times Externa 500-50 daily l MCG/ACT inhalation AEROSOL POWDER, BREATH ACTIVATED Fluticasone 2022-0 Yes 1{puff} Inhale 1 Chap[facility] -Salmeterol 4-18 puff into Christina johnson (Advair 00:00: the lungs - Diskus) 00 2 times Externa 500-50 daily l MCG/ACT inhalation AEROSOL POWDER, BREATH ACTIVATED Fluticasone 2022-0 Yes 1{puff} Inhale 1 Chap[facility] -Salmeterol 4-18 puff into Christina johnson (Advair 00:00: the lungs - Diskus) 00 2 times Externa 500-50 daily l MCG/ACT inhalation AEROSOL POWDER, BREATH ACTIVATED Fluticasone 2022-0 Yes 1{puff} Inhale 1 Chap[facility] -Salmeterol 4-18 puff into Christina johnson (Advair 00:00: the lungs - Diskus) 00 [...] 00 Externa Inhalant l Solution Albuterol 2022-0 2023- No [facility] Sulfate 4-11 06-08 Seybold 0.63 MG/3ML 00:00: 00:00 - inhalation 00 :00 Externa Inhalant l Solution Bumetanide 2022-0 Yes 1mg Take 1 Kelse y 1 MG oral 4-03 tablet (1 Seybo ld Tablet 00:00: mg total) - 00 by mouth Externa daily l Gabapentin, 2022-0 Yes [id number] 1{tbl} Take 1 Chap[facility] Once-Daily, 4-03 tablet by y bold (Gralise) 00:00: mouth - 300 MG oral 00 daily Externa Tablet l Bumetanide 2022-0 2023- No 1mg Take 1 Muna ey 1 MG oral 4-03 05-01 tablet (1 Seyb old Tablet 00:00: 00:00 mg total) - 00 :00 by mouth Externa daily l Levothyroxi 2022-0 Yes [id number] 175ug Take 1 [facility] ne Sodium 3-28 tablet Seybold 175 MCG 00:00: (175 mcg - oral Tablet 00 total) by Ext courtney mouth l daily Rosuvastati 2022-0 Yes [id number] 20mg Take 1 Chap[facility] n Calcium 3-28 3 tablet (20 Seyb old 20 MG oral 00:00: mg total) - Tablet 00 by mouth Externa daily l Levothyroxi 2022-0 Yes [id number] 175ug Take 1 [facility] ne Sodium 3-28 tablet Seybold 175 MCG 00:00: (175 mcg - oral Tablet 00 total) by Ext courtney mouth l daily Rosuvastati 2022-0 Yes [id number] 20mg Take 1 [facility] n Calcium 3-28 3 tablet (20 Seyb old 20 MG oral 00:00: mg total) - Tablet 00 by mouth Externa daily l Levothyroxi 2022-0 Yes [id number] 175ug Take 1 [facility] ne Sodium 3-28 tablet Seybold 175 MCG 00:00: (175 mcg - oral Tablet 00 total) by Ext courtney mouth l daily Rosuvastati 2022-0 Yes [id number] 20mg Take 1 [facility] n Calcium 3-28 3 tablet (20 Seyb old 20 MG oral 00:00: mg total) - Tablet 00 by mouth Externa daily l Rosuvastati 2022-0 Yes [id number] 20mg Take 1 [facility] n Calcium 3-28 3 tablet (20 Seyb old 20 MG oral 00:00: mg total) - Tablet 00 by mouth Externa daily l Rosuvastati 2022-0 Yes [id number] 20mg Take 1 [facility] n Calcium 3-28 3 tablet (20 Seyb old 20 MG oral 00:00: mg total) - Tablet 00 by mouth Externa daily l Rosuvastati 2022-0 Yes [id number] 20mg Take 1 [facility] n Calcium 3-28 3 tablet (20 Seyb old 20 MG oral 00:00: mg total) - Tablet 00 by mouth Externa daily l Levothyroxi 2022-0 Yes [id number] 175ug Take 1 [facility] ne Sodium 3-28 tablet Seybold 175 MCG 00:00: (175 mcg - oral Tablet 00 total) by Ext courtney mouth l daily Rosuvastati 3-0 Yes [id number] 20mg Take 1 [facility] n Calcium 3-28 3 tablet (20 Seyb old 20 MG oral 00:00: mg total) - Tablet 00 by mouth Externa daily l Irbesartan 2023-0 Yes [id number] 150mg Take 1 Chapis 150 MG oral 3-27 tablet Seybol d Tablet 00:00: (150 mg - 00 total) by Externa mouth l nightly hydrALAZINE 3-0 Yes [id number] 50mg Take 1 [facility] HCl 50 MG 3-27 tablet (50 Seyb old oral Tablet 00:00: mg total) - 00 by mouth 3 Externa times l daily Irbesartan 2023-0 Yes [id number] 150mg Take 1 Chap[facility] 150 MG oral 3-27 tablet Seybol d Tablet 00:00: (150 mg - 00 total) by Externa mouth l nightly hydrALAZINE 3-0 Yes [id number] 50mg Take 1 [facility] HCl 50 MG 3-27 tablet (50 Seyb old oral Tablet 00:00: mg total) - 00 by mouth 3 Externa times l daily Irbesartan 2023-0 Yes [id number] 150mg Take 1 Chapis 150 MG oral 3-27 tablet Seybol d Tablet 00:00: (150 mg - 00 total) by Externa mouth l nightly hydrALAZINE 2023-0 Yes [id number] 50mg Take 1 [facility] HCl 50 MG 3-27 tablet (50 Seyb old oral Tablet 00:00: mg total) - 00 by mouth 3 Externa times l daily Irbesartan 2023-0 Yes [id number] 150mg Take 1 Chap[facility] 150 MG oral 3-27 tablet Seybol d Tablet 00:00: (150 mg - 00 total) by Externa mouth l nightly hydrALAZINE 2023-0 Yes [id number] 50mg Take 1 [facility] HCl 50 MG 3-27 tablet (50 Seyb old oral Tablet 00:00: mg total) - 00 by mouth 3 Externa times l daily Irbesartan 2023-0 Yes [id number] 150mg Take 1 Chapis 150 MG oral 3-27 tablet Seybol d Tablet 00:00: (150 mg - 00 total) by Externa mouth l nightly hydrALAZINE 0 Yes [id number] 50mg Take 1 [facility] HCl 50 MG 3-27 tablet (50 Seyb old oral Tablet 00:00: mg total) - 00 by mouth 3 Externa times l daily Irbesartan 0 Yes [id number] 150mg Take 1 Chapis 150 MG oral 3-27 tablet Seybol d Tablet 00:00: (150 mg - 00 total) by Externa mouth l nightly hydrALAZINE 0 Yes [id number] 50mg Take 1 [facility] HCl 50 MG 3-27 tablet (50 Seyb old oral Tablet 00:00: mg total) - 00 by mouth 3 Externa times l daily Irbesartan 0 Yes [id number] 150mg Take 1 Chapis 150 MG oral 3-27 tablet Seybol d Tablet 00:00: (150 mg - 00 total) by Externa mouth l nightly hydrALAZINE 0 Yes [id number] 50mg Take 1 [facility] HCl 50 MG 3-27 tablet (50 Seyb old oral Tablet 00:00: mg total) - 00 by mouth 3 Externa times l daily Gabapentin, 0 2022- No 3{tbl} Take 3 K elsey Once-Daily, 3-13 03-13 tablets by Yoshi mayorga ([facility]) 14:05: 00:00 mouth as - 300 MG oral 49 :00 needed 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 a Tablet l Bumetanide Yes 1mg Take [...] inhalation AEROSOL POWDER, BREATH ACTIVATED Spironolact Yes [id number] 25mg Take 1 Chap[facility] one 25 MG 3-13 tablet (25 Seyb old oral Tablet 00:00: mg total) - 00 by mouth 2 Externa times l daily Montelukast 2023-0 Yes [id number] 10mg Take 1 [facility] (SINGULAIR) 3-13 tablet (10 Se ybold 10 MG oral 00:00: mg total) - Tablet 00 by mouth Externa tablet nightly l cloNIDine 2023-0 Yes [id number] 1{patch Apply 1 [facility] 0.2 MG/24HR 3-13 } patch Seybold transdermal 00:00: topically - PATCH 00 every 7 Externa WEEKLY days l Spironolact 2023-0 Yes [id number] 25mg Take 1 [facility] one 25 MG 3-13 tablet (25 Seyb old oral Tablet 00:00: mg total) - 00 by mouth 2 Externa times l daily Montelukast 3-0 Yes [id number] 10mg Take 1 [facility] (SINGULAIR) 3-13 tablet (10 Se ybold 10 MG oral 00:00: mg total) - Tablet 00 by mouth Externa tablet nightly l cloNIDine 3-0 Yes [id number] 1{patch Apply 1 Chap[facility] 0.2 MG/24HR 3-13 } patch Seybold transdermal 00:00: topically - PATCH 00 every 7 Externa WEEKLY days l Spironolact 2023-0 Yes [id number] 25mg Take 1 Chap[facility] one 25 MG 3-13 tablet (25 Seyb old oral Tablet 00:00: mg total) - 00 by mouth 2 Externa times l daily Montelukast 2023-0 Yes [id number] 10mg Take 1 [facility] (SINGULAIR) 3-13 tablet (10 Se ybold 10 MG oral 00:00: mg total) - Tablet 00 by mouth Externa tablet nightly l cloNIDine 2023-0 Yes [id number] 1{patch Apply 1 [facility] 0.2 MG/24HR 3-13 } patch Seybold transdermal 00:00: topically - PATCH 00 every 7 Externa WEEKLY days l Spironolact 2023-0 Yes [id number] 25mg Take 1 [facility] one 25 MG 3-13 tablet (25 Seyb old oral Tablet 00:00: mg total) - 00 by mouth 2 Externa times l daily Spironolact 2023-0 Yes [id number] 25mg Take 1 [facility] one 25 MG 3-13 tablet (25 Seyb old oral Tablet 00:00: mg total) - 00 by mouth 2 Externa times l daily Spironolact 3-0 Yes [id number] 25mg Take 1 [facility] one 25 MG 3-13 tablet (25 Seyb old oral Tablet 00:00: mg total) - 00 by mouth 2 Externa times l daily Spironolact 2022-0 Yes [id number] 25mg Take 1 [facility] one 25 MG 3-13 tablet (25 Seyb old oral Tablet 00:00: mg total) - 00 by mouth 2 Externa times l daily Montelukast 2022-0 Yes [id number] 10mg Take 1 [facility] (SINGULAIR) 3-13 tablet (10 Se ybold 10 MG oral 00:00: mg total) - Tablet 00 by mouth Externa tablet nightly l Gabapentin, 2022-0 Yes [id number] 1{tbl} Take 1 [facility] Once-Daily, 3-13 tablet by Christina johnson (Gralise) 00:00: mouth - 300 MG oral 00 daily Externa Tablet l cloNIDine 2022-0 Yes [id number] 1{patch Apply 1 [facility] 0.2 MG/24HR 3-13 } patch Seybold transdermal 00:00: topically - PATCH 00 every 7 Externa WEEKLY days l Spironolact 2022-0 Yes [id number] 25mg Take 1 [facility] one 25 MG 3-13 tablet (25 Seyb old oral Tablet 00:00: mg total) - 00 by mouth 2 Externa times l daily Montelukast 2022-0 Yes [id number] 10mg Take 1 [facility] (SINGULAIR) 3-13 tablet (10 Se ybold 10 MG oral 00:00: mg total) - Tablet 00 by mouth Externa tablet nightly l cloNIDine 3-0 Yes [id number] 1{patch Apply 1 [facility] 0.2 MG/24HR 3-13 } patch Seybold transdermal 00:00: topically - PATCH 00 every 7 Externa WEEKLY days l Montelukast 2023-0 2023- No [id number] 10mg Take 1 [facility] (SINGULAIR) 3-13 06-08 tablet (10 S eybold 10 MG oral 00:00: 00:00 mg total) - Tablet 00 :00 by mouth Externa tablet nightly l cloNIDine 2023-0 2023- No [id number] 1{patch Apply 1 [facility] 0.2 MG/24HR 3-13 06-08 } patch Seybol d transdermal 00:00: 00:00 topically - PATCH 00 :00 every 7 Externa WEEKLY days l Carvedilol 2022-0 Yes 12.5mg Take 1 Dashawn sey 12.5 MG 1-31 tablet Seybold oral Tablet 00:00: (12.5 mg - 00 total) by Externa mouth 2 l times daily Carvedilol 2022-0 Yes 12.5mg Take 1 Dashawn sey 12.5 MG 1-31 tablet Seybold oral Tablet 00:00: (12.5 mg - 00 total) by Externa mouth 2 l times daily Carvedilol 0 Yes 12.5mg Take 1 Dashawn sey 12.5 MG 1-31 tablet Seybold oral Tablet 00:00: (12.5 mg - 00 total) by Externa mouth 2 l times daily Carvedilol 2022-0 Yes 1{tbl} Take 1 Dashawn sey 12.5 MG 1-31 tablet by Seybold oral Tablet 00:00: mouth 2 - 00 times Externa daily l Carvedilol 0 Yes 12.5mg Take 1 Dashawn sey 12.5 MG 1-31 tablet Seybold oral Tablet 00:00: (12.5 mg - 00 total) by Externa mouth 2 l times daily Carvedilol 2022-0 2022- No 12.5mg Take 1 Ke lsey 12.5 MG 1-31 06-08 tablet Seybold oral Tablet 00:00: 00:00 (12.5 mg - 00 :00 total) by Externa mouth 2 l times daily cloNIDine 2022-0 2023- No PLACE 0.2 Ke lsey 0.2 MG/24HR 1-23 03-13 MG (1 Seybol d transdermal 00:00: 00:00 PATCH) - PATCH 00 :00 TOPICALLY Externa WEEKLY ONCE l WEEKLY Irbesartan- 2022-0 202- No 1{tbl} Take 1 K elsey hydroCHLORO 1-19 01-20 tablet by Se ybold thiazide 00:00: 05:59 mouth - 150-12.5 MG [...] tablet - 00 :00 Externa l morpHINE 2020- No 4mg 4 mg, Slow Un mohamud injection 4 10-08 IV Push, ity of mg 08:00: 07:04 ONCE, 1 [place] 00 :00 dose, Fri Medical 10/08/20 at Branch 0200, STAT hydralAZINE 2020- No 20mg 20 mg, Uni vers (APRESOLINE 10-08 Slow IV ity of ) injection 07:45: 07:00 [place], [place] 20 mg 00 :00 ONCE, 1 Medical dose, Fri Branch 10/08/20 at 0145, STAT
In dication: Hypertensi ve Emergency proMETHazin 2020- No 25mg 25 mg, IV Univers e 10-08 Piggyback, ity of (PHENERGAN) 07:15: 07:15 [place]CE[place] 1 [place] 25 [place] in 00 :00 dose, Fri Medica l NaCl 0.9% 10/08/20 at Bran ch (NS) 50 mL 0115, 50 piggyback mL NaCl 0.9% Yes 1000mL at 999 Univ ers (NS) IV 2-19 mL/hr, ity of infusion 05:45: Intravenou [place] as 1,000 mL 00 s, Medical CONTINUOUS Branch , Starting Zo 10/07/20 at 2345, Until Discontinu ed, Routine proMETHazin 2020- No 25mg 25 mg, IV Univers e 2-19 02-19 Piggyback, ity of (PHENERGAN) 04:30: 04:30 [place] 1 [place] 25 [place] in 00 :00 dose, Zo Medica l NaCl 0.9% 10/07/20 at [facility] ch (NS) 50 mL 2230, 50 piggyback mL FENTanyl PF 2020- No 75ug 75 mcg, Un mohamud (SUBLIMAZE 10-08 Slow IV ity o f (PF)) 04:30: 04:15 Push, [place] injection 00 :00 ONCE, 1 Medical 75 mcg dose, Zo Branch 10/07/20 at 2230, Routine iohexol 2020- No 120mL 120 mL, Unive rs (OMNIPAQUE 10-08 Intravenou it y of 350 04:15: 04:15 s, ONCE, 1 [place] BULK-150 00 :00 dose, Zo Medica l mL) 10/07/20 at [place] injection 2215, 120 mL Routine HYDROcodone 2020- No [id number] 1{tbl} Take 1 U nivers -acetaminop 10-08 tablet by it y of hen (NORCO) 00:00: 05:59 mouth [place] 10-325 mg 00 :00 every 6 Medical tablet (six) Branch hours as needed for Pain (scale 7-10) for up to 7 days. Indication s: acute pain maalox:diph 2020- No 15mL 15 mL, Uni vers enhydrAMINE 10-07 Oral, ity of :lidocaine 09:30: 08:20 ONCE, 1 [place] as 2 % viscous 00 :00 dose, Zo Med ical 1:1:1 10/07/20 at [place] (FIRST-MOUT 0330, HWASH BLM) Routine oral suspension 15 mL INSULIN Yes [...] SULFATE 2-18 ity of (PROAIR HFA 07:01: [place] INHALE) 41 Medical Branch amlodipine- Yes 1{capsu [...] by mouth ity of ASPIRIN 07:01: daily. [place] REGIMEN) 81 41 Medical mg EC Branch tablet escitalopra Yes 10mg Take 10 mg Univers m oxalate 2-18 by mouth ity of 10 mg 07:01: daily. [place] tablet 41 Medical Branch Fluticasone Yes 1{puff} Inhale 1 Univers -Salmeterol 2-18 Puff every it y of 100-50 07:01: 12 [place] mcg/dose 41 (twelve) Medical inhalation hours. Branch disk furosemide Yes 20mg Take 20 mg U nivers 20 mg 2-18 by mouth ity of tablet 07:01: daily. [place] [address] Medical Branch gabapentin Yes Take by [facility] ers ER 300 mg 2-18 mouth ity of tablet, 07:01: daily. [place] extended 41 Medical release 24 Branch hr losartan 50 Yes 50mg Take 50 mg Univers mg tablet 2-18 by mouth ity of 07:01: daily. [place] [address] Medical Branch KCL 10 mEq Yes 8meq Take 8 mEq U nivers tablet 2-18 by mouth ity of 07:01: daily. [place] [address] Medical Branch spironolact Yes 1{tbl} Take 1 [...] by mouth ity of (SPIRONOLAC 07:01: daily. [place] s TONE) 25 mg 41 Medical tablet Branch chlorthalid Yes 25mg Take 25 mg Univers one 2-18 by mouth ity of (HYGROTON) 07:01: daily. [place] 25 mg 41 Medical tablet Branch aspirin Yes 81mg Take 81 mg Univ ers (ADULT 2-18 by mouth ity of ASPIRIN 07:01: daily. [place] REGIMEN) 81 41 Medical mg EC Branch [...] by mouth ity of tablet 07:01: daily. [place] [address] Medical Branch gabapentin Yes Take by Univ ers ER 300 mg 2-18 mouth ity of tablet, 07:01: daily. [place] extended 41 Medical release 24 Branch hr losartan 50 0 Yes 50mg Take 50 mg Univers mg tablet 2-18 by mouth ity of 07:01: daily. [place] [address] Medical Branch KCL 10 mEq Yes 8meq Take 8 mEq U nivers tablet 2-18 by mouth ity of 07:01: daily. [place] [address] Medical Branch spironolact Yes 1{tbl} Take 1 [...] by mouth ity of (SPIRONOLAC 07:01: daily. [place] TONE) 25 mg 41 Medical tablet Branch chlorthalid Yes 25mg Take 25 mg Univers one 2-18 by mouth ity of (HYGROTON) 07:01: daily. [place] 25 mg 41 Medical tablet Branch aspirin Yes 81mg Take 81 mg Univ ers (ADULT 2-18 by mouth ity of ASPIRIN 07:01: daily. [place] REGIMEN) 81 41 Medical mg EC Branch [...] by mouth ity of tablet 07:01: daily. [place] [address] Medical Branch gabapentin Yes Take by [facility] ers ER 300 mg 2-18 mouth ity of tablet, 07:01: daily. [place] extended Medical release 24 Branch hr losartan 50 Yes 50mg Take 50 mg Univers mg tablet 2-18 by mouth ity of 07:01: daily. [place] [address] Medical Branch KCL 10 mEq Yes 8meq Take 8 mEq U nivers tablet 2-18 by mouth ity of 07:01: daily. [place] [address] Medical Branch spironolact Yes 1{tbl} Take 1 Un mohamud one-hydroch 2-18 tablet by ity of lorothiazid 07:01: mouth [place] e 50-50 mg 41 daily. Medical per tablet Branch INSULIN Yes 42U inject 42 [facility] 2-18 Units ity of LISPRO 01:01: under the [place] (HUMALOG 41 skin 2 Medical MIX 75-25 (two) Branch SC) times daily with meals. metFORMIN Yes 1000mg Take 1,000 Univers (GLUCOPHAGE 2-18 mg by ity of ) 500 mg 01:01: mouth 2 [place] tablet 41 (two) Medical times Branch daily with meals. ALBUTEROL Yes Inhale. [facility] SULFATE 2-18 ity of (PROAIR HFA 01:01: [place] INHALE) 41 Medical Branch amlodipine- Yes 1{capsu Take 1 Cap Univers benazepril 2-18 le} by mouth 2 ity of (LOTREL) 01:01: (two) [place] 5-20 mg per 41 times Medical capsule daily. Branch spironolact Yes 25mg Take 25 mg Univers one 2-18 by mouth ity of (SPIRONOLAC 01:01: daily. [place] TONE) 25 mg 41 Medical tablet Branch chlorthalid Yes 25mg Take 25 mg Univers one 2-18 by mouth ity of (HYGROTON) 01:01: daily. [place] 25 mg 41 Medical tablet Branch aspirin Yes 81mg Take 81 mg Univ ers (ADULT 2-18 by mouth ity of ASPIRIN 01:01: daily. [place] REGIMEN) 81 41 Medical mg EC Branch tablet escitalopra Yes 10mg Take 10 mg Univers m oxalate 2-18 by mouth ity of 10 mg 01:01: daily. [place] tablet 41 Medical Branch Fluticasone Yes 1{puff} Inhale 1 Univers -Salmeterol 2-18 Puff every it y of 100-50 01:01: 12 [place] mcg/dose 41 (twelve) Medical inhalation hours. Branch disk furosemide Yes 20mg Take 20 mg U nivers 20 mg 2-18 by mouth ity of tablet 01:01: daily. [place] [address] Medical Branch gabapentin Yes Take by [facility] ers ER 300 mg 2-18 mouth ity of tablet, 01:01: daily. [place] extended 41 Medical release 24 Branch hr losartan 50 0 Yes 50mg Take 50 mg Univers mg tablet 2-18 by mouth ity of 01:01: daily. [place] [address] Medical Branch KCL 10 mEq Yes 8meq Take 8 mEq U nivers tablet 2-18 by mouth ity of 01:01: daily. [place] [address] Medical Branch spironolact Yes 1{tbl} Take 1 Un mohamud one-hydroch 2-18 tablet by ity of lorothiazid 01:01: mouth [place] e 50-50 mg 41 daily. Medical per tablet Branch pantoprazol Yes [id number] 40mg Take 1 Univers e 2-18 tablet by ity of (PROTONIX) 00:00: mouth [place] 40 mg EC 00 daily. Medical tablet Branch dicyclomine 0 Yes [id number] 20mg Take 1 Univers 20 mg 2-18 tablet by ity of tablet 00:00: mouth [place] 00 every 6 Medical (six) Branch hours as needed for Abdominal pain. pantoprazol 0 Yes [id number] 40mg Take 1 Univers e 2-18 tablet by ity of (PROTONIX) 00:00: mouth [place] 40 mg EC 00 daily. Medical tablet Branch dicyclomine Yes [id number] 20mg Take 1 Univers 20 mg 2-18 tablet by ity of tablet 00:00: mouth [place] 00 every 6 Medical (six) Branch hours as needed for Abdominal pain. pantoprazol Yes [id number] 40mg Take 1 Univers e 2-18 tablet by ity of (PROTONIX) 00:00: mouth [place] 40 mg EC 00 daily. Medical tablet Branch dicyclomine Yes [id number] 20mg Take 1 Univers 20 mg 2-18 tablet by ity of tablet 00:00: mouth [place] 00 every 6 Medical (six) Branch hours as needed for Abdominal pain. escitalopra Yes 10mg Take 10 mg Univers m oxalate 2-11 by mouth ity of 10 mg 14:26: daily. [place] tablet 58 Medical Branch Fluticasone Yes 1{puff} Inhale 1 Univers -Salmeterol 2-11 Puff every it y of 100-50 14:26: 12 [place] mcg/dose 58 (twelve) Medical inhalation hours. Branch disk furosemide Yes 20mg Take 20 mg U nivers 20 mg 2-11 by mouth ity of tablet 14:26: daily. [place] [address] Medical Branch gabapentin Yes Take by [facility] ers ER 300 mg 2-11 mouth ity of tablet, 14:26: daily. [place] extended 58 Medical release 24 Branch hr losartan 50 Yes 50mg Take 50 mg Univers mg tablet 2-11 by mouth ity of 14:26: daily. [place] [address] Medical Branch KCL 10 mEq Yes 8meq Take 8 mEq U nivers tablet 2-11 by mouth ity of 14:26: daily. [place] [address] Medical Branch spironolact Yes 1{tbl} Take 1 Un mohamud one-hydroch 2-11 tablet by ity of lorothiazid 14:26: mouth [place] e 50-50 mg 58 daily. Medical per tablet Branch aspirin Yes 81mg Take 81 mg Univ ers (ADULT 2-11 by mouth ity of ASPIRIN 14:26: daily. [place] REGIMEN) 81 58 Medical mg EC Branch tablet escitalopra Yes 10mg Take 10 mg Univers m oxalate 2-11 by mouth ity of 10 mg 14:26: daily. [place] tablet 58 Medical Branch Fluticasone Yes 1{puff} Inhale 1 Univers -Salmeterol 2-11 Puff every it y of 100-50 14:26: 12 [place] mcg/dose 58 (twelve) Medical inhalation hours. Branch disk furosemide Yes 20mg Take 20 mg U nivers 20 mg 2-11 by mouth ity of tablet 14:26: daily. [place] [address] Medical Branch gabapentin Yes Take by Univ ers ER 300 mg 2-11 mouth ity of tablet, 14:26: daily. [place] extended Medical release 24 Branch hr losartan 50 Yes 50mg Take 50 mg Univers mg tablet 2-11 by mouth ity of 14:26: daily. [place] [address] Medical Branch KCL 10 mEq Yes 8meq Take 8 mEq U nivers tablet 2-11 by mouth ity of 14:26: daily. [place] [address] Medical Branch spironolact Yes 1{tbl} Take 1 [...] [place] 25 mg 29 Medical tablet Branch neomycin-po Yes PRN, Univer s lymyxin-dex 2-11 Starting ity of amethasone 14:19: Zo [place] (MAXITROL) 00 09/30/20 at [facility] ical [address] [place] [address] mg/g-10,000 Until unit/g-0.1 Discontinu % ed, ophthalmic Routine, ointment Intra-op tetracaine Yes PRN, Univers (PONTOCAINE 2-11 Starting ity of ) 0.5 % 14:19: Zo [place] ophthalmic 00 09/30/20 at Med ical drops [address] Until Discontinu ed, Routine, Intra-op water for Yes PRN, Univers irrigation 2-11 Starting ity o f irrigation 14:18: Zo [place] solution 09/30/20 at Medic al [address] [place] [address] Until Discontinu ed, Routine, Intra-op gentamicin Yes PRN, Univers injection 2-11 Starting ity of 14:18: Zo [place] 09/30/[address] [facility] [address] [place] [address] Until Discontinu ed, ASHLEY, Intra-op EPINEPHrine Yes PRN, Univer s (PF) 2-11 Starting ity of 1:1,000 (1 14:17: Zo [place] mg/mL) 00 09/30/[address] [facility] (ADRENALIN 0817, [place] (PF)) Until injection Discontinu ed, Routine, Intra-op DUOVISC Yes PRN, Univers (DUOVISC 09-30 Starting ity of VISCO 14:17: Zo [place] ELASTIC) 3 00 09/30/20 at [facility] ical %-4 %(0.5 0817, [place] mL) 1 % Until (0.55 mL) Discontinu intraocular ed, injection Routine, Intra-op dexamethaso Yes PRN, Univer s ne 09-30 Starting ity of (DECADRON 14:08: Zo [place] PHOSPHATE) 00 09/30/20 at [facility] ical injection 0808, [place] Until Discontinu ed, Routine, Intra-op balanced Yes PRN, Univers salt soln 09-30 Starting ity of no.2 irrig. 14:07: Zo [place] (BSS) 00 09/30/[address] [facility] ophthalmic 0807, [place] solution Until Discontinu ed, Routine, Intra-op eye block Yes PRN, Univers syringe 11 09-30 Starting ity o f mL 14:00: Zo [place] 00 09/30/[address] [facility] 0800, [place] Until Discontinu ed, Intra-op propofoL IV 2020- No ONCE INTRA Univers infusion 09-30 PROCEDURE, ity of 13:58: 14:23 Starting [place] 00 :[address] [facility] 09/30/20 at [place] 0758, Until Zo 09/30/20 at 0823, Routine, Intra-op lidocaine 2020- No ONCE INTRA U nivers 1% 09-30 PROCEDURE, ity of (XYLOCAINE) 13:58: 14:23 Starting [place] 100 mg/10 00 :[address] [facility] mL (1 %) 09/30/20 at [facility] h injection 0758, Until Zo 09/30/20 at 0823, Routine, Intra-op albuterol 2020- No ONCE INTRA U nivers (VENTOLIN) 09-30 PROCEDURE, it y of inhaler 13:56: 14:23 Starting [place] 00 :[address] [facility] 09/30/20 at Branch 0756, Until Zo 09/30/20 at 0823, Routine, Intra-op midazolam 2020- No ONCE INTRA U nivers (VERSED) 09-30 PROCEDURE, ity of injection 13:53: 14:23 Starting [place] as 00 :22 Zo Medical 09/30/20 at Branch 0753, Until Zo 09/30/20 at 0823, Routine, Intra-op lactated 2020- No CONTINUOUS Un mohamud ringers IV 09-30 PRN, ity of infusion 13:25: 14:23 Starting [place] 00 :22 Zo Medical 09/30/20 at Branch 0725, Until Zo 09/30/20 at 0823, Routine, Intra-op mydriatic 2020- No .5mL 0.5 mL, Univ ers #5 09-30 Right Eye, ity of ophthalmic 13:15: 13:26 ONCE, 1 [place] solution 00 :00 dose, Zo Medica l 0.5 mL 09/30/20 at Branch syringe 0715, Routine, DSU Pre-op lactated 2020- No 1000mL at 42 Unive rs ringers IV 09-30 mL/hr, ity of infusion 13:15: 13:26 1,000 mL, [place] 1,000 mL 00 :00 IV Medical Infusion, Branch ONCE, 1 dose, Zo 09/30/20 at 0715, Routine, DSU Pre-op metFORMIN 2020- Yes 1000mg Take 1,000 Univers (GLUCOPHAGE 2-11 mg by ity of ) 500 mg 13:01: mouth 2 [place] tablet 30 (two) Medical times Branch daily with meals. metFORMIN 0 Yes 1000mg Take 1,000 Univers (GLUCOPHAGE 2-11 mg by ity of ) 500 mg 13:01: mouth 2 [place] tablet 30 (two) Medical times Branch daily with meals. metFORMIN 2020-0 Yes 1000mg Take 1,000 Univers (GLUCOPHAGE 2-09 mg by ity of ) 500 mg 19:58: mouth 2 [place] tablet 09 (two) Medical times Branch daily with meals. amlodipine- 2020- Yes 1{capsu Take 1 Cap Univers benazepril 2-09 le} by mouth 2 ity of (LOTREL) 19:58: (two) [place] 5-20 mg per 09 times Medical capsule daily. Branch losartan 50 Yes 50mg Take 50 mg Univers mg tablet 2-05 by mouth ity of 21:47: daily. [place] 58 Medical Branch KCL 10 mEq Yes 8meq Take 8 mEq U nivers tablet 2-05 by mouth ity of 21:47: daily. [place] 58 Medical Branch spironolact Yes 1{tbl} Take 1 Un mohamud one-hydroch 2-05 tablet by ity of lorothiazid 21:47: mouth [place] e 50-50 mg 58 daily. Medical per tablet Branch aspirin Yes 81mg Take 81 mg Univ ers (ADULT 2-05 by mouth ity of ASPIRIN 21:47: daily. [place] REGIMEN) 81 57 Medical mg EC Branch tablet escitalopra Yes 10mg Take 10 mg Univers m oxalate 2-05 by mouth ity of 10 mg 21:47: daily. [place] tablet 57 Medical Branch Fluticasone Yes 1{puff} Inhale 1 Univers -Salmeterol 2-05 Puff every it y of 100-50 21:47: 12 [place] mcg/dose 57 (twelve) Medical inhalation hours. Branch disk furosemide Yes 20mg Take 20 mg U nivers 20 mg 2-05 by mouth ity of tablet 21:47: daily. [place] [address] Medical Branch gabapentin Yes Take by Univ ers ER 300 mg 2-05 mouth ity of tablet, 21:47: daily. [place] extended 57 Medical release 24 Branch hr ALBUTEROL Yes Inhale. Unive rs SULFATE 3-11 ity of (PROAIR HFA 13:13: [place] INHALE) 00 Medical Branch desloratadi Yes 5mg Take 1 Tab Univers ne 3-11 by mouth ity of (CLARINEX 00:00: daily. [place] REDITAB) 5 00 Medical mg Branch disintegrat ing tablet desloratadi Yes 5mg Take 1 Tab Univers ne 3-11 by mouth ity of (CLARINEX 00:00: daily. [place] REDITAB) 5 00 Medical mg Branch disintegrat ing tablet desloratadi Yes 5mg Take 1 Tab Univers ne [...] Medical mg Branch disintegrat ing tablet desloratadi Yes 5mg Take 1 Tab Univers ne 3-11 by mouth ity of (CLARINEX 00:00: daily. [place] REDITAB) 5 00 Medical mg Branch disintegrat ing tablet desloratadi Yes 5mg Take 1 Tab Univers ne 3-11 by mouth ity of (CLARINEX 00:00: daily. [place] REDITAB) 5 00 Medical mg Branch disintegrat ing tablet montelukast 0 Yes Univer s (SINGULAIR) 1-06 ity of 10 mg 00:00: [place] tablet 00 [facility] Univer [facility] ([facility]IR) 1-06 ity of 10 mg 00:00: [place] tablet 00 Medical [place] [facility] Yes Univer s (SINGULAIR) 1-06 ity of 10 mg 00:00: [place] tablet 00 Medical [facility] Univer s (SINGULAIR) 1-06 ity of 10 mg 00:00: [place] tablet 00 Medical [facility] Yes Univer s (SINGULAIR) 1-06 ity of 10 mg 00:00: [place] tablet 00 Medical [place] montelukast 0 Yes Univer s (SINGULAIR) 1-06 ity of 10 mg 00:00: [place] tablet 00 Medical [place] montelust 0 Yes Univer s (SINGULAIR) 1-06 ity of 10 mg 00:00: [place] tablet 00 Medical Branch BD INSULIN Yes Univers PEN NEEDLE 8-05 ity of UF 31 X 00:00: 01/02 " [place] 00 Medical Branch BD INSULIN Yes Univers PEN NEEDLE 8-05 ity of UF 31 X 00:00: 01/02" [place] 00 Medical Branch BD INSULIN Yes Univers PEN NEEDLE 8-05 ity of UF 31 X 00:00: 01/02 " [place] Medical Branch BD INSULIN Yes Univers PEN NEEDLE 8-05 ity of UF 31 X 00:00: 01/02 " [place] 00 Medical Branch BD INSULIN Yes Univers PEN NEEDLE 8-05 ity of UF 31 X 00:00: 01/02 " [place] Medical Branch BD INSULIN Yes Univers PEN NEEDLE 8-05 ity of UF 31 X 00:00: 01/02 " [place] 00 Medical Branch BD INSULIN Yes Univers PEN NEEDLE 8-05 ity of UF 31 X 00:00: 01/02 " [place] Medical Branch acyclovir Yes Univers (ZOVIRAX) 3-27 ity of 400 mg 00:00: [place] tablet Medical Branch acyclovir Yes Univers (ZOVIRAX) 3-27 ity of 400 mg 00:00: [place] tablet Medical Branch acyclovir Yes Univers (ZOVIRAX) 3-27 ity of 400 mg 00:00: [place] tablet Medical Branch acyclovir Yes Univers (ZOVIRAX) 3-27 ity of 400 mg 00:00: [place] tablet Medical Branch acyclovir Yes Univers (ZOVIRAX) 3-27 ity of 400 mg 00:00: [place] tablet Medical Branch acyclovir Yes Univers (ZOVIRAX) 3-27 ity of 400 mg 00:00: [place] tablet Medical Branch acyclovir Yes Univers (ZOVIRAX) 3-27 [...] tablet Branch levothyroxi Yes TAKE ONE Un omhamud ne 1-25 TABLET BY ity of (SYNTHROID) [...] as mL) needed for solution Pain. hydrocodone 2012-0 Yes 10mL Take 10-15 Univers -acetaminop 4-04 mL by itjose of magi 00:00: mouth [place] (LORTAB) 00 every 4 [...] subcutaneou subcutaneo al s pen s pen [facility] injector injector injector Out [...] Name Name Tdap- (Boostrix, 2022-12-18 Completed Chapis Yoshi heatherbohima Adacel) 00:00:00 - External Tdap- (Boostrix, 2022-12-18 Completed Chapis Yoshi eybold Adacel) 00:00:00 - External Tdap- (Boostrix, 2022-12-18 Completed Chapis S eybold Adacel) 00:00:00 - External Tdap- (Boostrix, 2022-12-18 Completed Chapis S eybold Adacel) 00:00:00 - External Tdap- (Boostrix, 2022-12-18 Completed Chapis S eybold Adacel) 00:00:00 - External Tdap- (Boostrix, 2022-12-18 Completed Chapis S eybold Adacel) 00:00:00 - External Influenza Virus 2022-05-27 [...] 00:00:00 - External Influenza Virus 2022-05-27 Completed Cahpis Se ybold Vaccine, Quad, Egg 00:00:00 - [...] - External Influenza Virus 2013-07-23 Completed Chapis Se ybold Vaccine, High Dose, 00:00:00 - Ext ernal Age 65 And Up Influenza Virus 2013-07-23 Completed Chapis Se ybold Vaccine, High Dose, 00:00:00 - Ext ernal Age 65 And Up Influenza Virus 2013-07-23 Completed Chapis Se ybold Vaccine, High Dose, 00:00:00 - Ext ernal Age 65 And Up Influenza Virus 2013-07-23 Completed Chapis Se ybold Vaccine, High Dose, 00:00:00 - Ext ernal Age 65 And Up Influenza Virus 2013-07-23 Completed Chapis Se ybold Vaccine, High Dose, 00:00:00 - Ext ernal Age 65 And Up Influenza Virus 2013-07-23 Completed Chapis Se ybold Vaccine, High Dose, 00:00:00 - Ext ernal Age 65 And Up Influenza Virus 2013-07-23 Completed Chapis Se ybold Vaccine, High Dose, 00:00:00 - Ext ernal Age 65 And Up Influenza Virus 2013-07-23 Completed Chapis Se ybold Vaccine, High Dose, 00:00:00 - Ext ernal Age 65 And Up Vital Signs Vital Name Observation Time Observation Value Comments Source Systolic blood 2023-02-13 18:14:00 159 mm[Hg] Chapis Canoybold - pressure External Diastolic blood 2023-02-13 18:14:00 79 mm[Hg] Darnell garcia Seybold - pressure External Heart rate 2023-02-13 18:14:00 55 /min Chapis romerobold - External Body temperature 2023-02-13 18:14:00 36.67 Mariaa Muna ey Seybold - External Respiratory rate 2023-02-13 18:14:00 18 /min Muna ey Seybold - External Body height 2023-02-13 18:14:00 157.5 cm Chapis Belle eybold - External Body weight 2023-02-13 18:14:00 122.925 kg Chapis S eybold - External BMI 2023-02-13 18:14:00 49.57 kg/m2 Chapis S eybold - External Systolic blood 2023-01-25 14:56:00 145 mm[Hg] Chapis Seybold - pressure External Diastolic blood 2023-01-25 14:56:00 87 mm[Hg] Dashawnse y Seybold - pressure External Heart rate 2023-01-25 14:56:00 62 /min Chapis Belle eybold - External Body temperature 2023-01-25 14:56:00 36.56 Mariaa Muna ey Seybold - External Respiratory rate 2023-01-25 14:56:00 15 /min Muna ey Seybold - External Body height 2023-01-25 14:56:00 157.5 cm Chapis Belle eybold - External Body weight 2023-01-25 14:56:00 122.018 kg Chapis Belle eybold - External BMI 2023-01-25 14:56:00 49.20 kg/m2 Chapis Belle eybold - External Oxygen saturation in 2023-01-25 14:56:00 98 /min Chapis Cornelius - Arterial blood by External Pulse oximetry Systolic blood 2023-01-04 13:06:00 162 mm[Hg] Chapis Seybold - pressure External Diastolic blood 2023-01-04 13:06:00 84 mm[Hg] Darnell y Seybold - pressure External Heart rate 2023-01-04 13:06:00 61 /min Chapis Belle eybold - External Body temperature 2023-01-04 13:06:00 36.61 Mariaa Muna ey Seybold - External Respiratory rate 2023-01-04 13:06:00 19 /min Muna romero Seybold - External Body height 2023-01-04 13:06:00 157.5 cm Chapis Belle eybold - External Body weight 2023-01-04 13:06:00 122.018 kg Chapis S eybold - External BMI 2023-01-04 13:06:00 49.20 kg/m2 Chapis S eybold - External Oxygen saturation in 2023-01-04 13:06:00 97 /min Chapis Seybold - Arterial blood by External Pulse oximetry Systolic blood 2022-12-18 18:39:00 154 mm[Hg] Chapis Seybold - pressure External Diastolic blood 2022-12-18 18:39:00 82 mm[Hg] Kelse y Seybold - pressure External Heart rate 2022-12-18 18:39:00 66 /min Chapis S eybold - External Body temperature 2022-12-18 18:39:00 36.56 Mariaa Muna ey Seybold - External Respiratory rate 2022-12-18 18:39:00 14 /min Muna ey Seybold - External Body height 2022-12-18 18:39:00 157.5 cm Chapis S eybold - External Body weight 2022-12-18 18:39:00 124.739 kg Chapis S eybold - External BMI 2022-12-18 18:39:00 50.30 kg/m2 Chapis S eybold - External Oxygen saturation in 2022-12-18 18:39:00 95 /min Chapis Seybold - Arterial blood by External Pulse oximetry Systolic blood 2022-12-05 18:38:00 158 mm[Hg] Chapis Seybold - pressure External Diastolic blood 2022-12-05 18:38:00 90 mm[Hg] Darnell y Seybold - pressure External Heart rate 2022-12-05 18:38:00 62 /min Chapis S eybold - External Body temperature 2022-12-05 18:38:00 37.06 Mariaa Muna ey Seybold - External Respiratory rate 2022-12-05 18:38:00 16 /min Muna ey Seybold - External Body height 2022-12-05 18:38:00 157.5 cm Chapis S eybold - External Body weight 2022-12-05 18:38:00 124.286 kg Chapis S eybold - External BMI 2022-12-05 18:38:00 50.12 kg/m2 Chapis S eybold - External Oxygen saturation in 2022-12-05 18:38:00 98 /min Chapis Seybold - Arterial blood by External Pulse oximetry Systolic blood 2022-10-30 18:34:00 152 mm[Hg] Chapis Canoybold - pressure External Diastolic blood 2022-10-30 18:34:00 86 mm[Hg] Darnell Cornelius - pressure External Heart rate 2022-10-30 18:34:00 63 /min Chapis Belle eybold - External Body temperature 2022-10-30 18:34:00 36.44 Mariaa Muna romero Seybold - External Respiratory rate 2022-10-30 18:34:00 14 /min Muna romero Seybold - External Body height 2022-10-30 18:34:00 157.5 cm Chapis romerobold - External Body weight 2022-10-30 18:34:00 126.1 kg Chapis romerobold - External BMI 2022-10-30 18:34:00 50.85 kg/m2 Chapis romerobold - External Oxygen saturation in 2022-10-30 18:34:00 96 /min Chapis Canocorinetavon - Arterial blood by External Pulse oximetry BP Diastolic 2020-12-07 00:00:00 95 mm[Hg] [place] [facility] Height 2020-12-07 00:00:00 62 [in_i] [place] [facility] BMI (Body Mass 2020-12-07 00:00:00 53.4 kg/m2 [facility]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) [facility] BP Systolic 2020-12-07 00:00:00 169 mm[Hg] [place] [facility] Body Weight 2020-12-07 00:00:00 292 [lb_av] [place] [facility] Systolic blood 2020-10-08 09:00:00 184 mm[Hg] Aaliyah brocky [facility] Diastolic blood 2020-10-08 09:00:00 68 mm[Hg] [facility] 2020-10-08 09:00:00 73 /[facility] Respiratory rate 2020-10-08 09:00:00 16 /min [facility] Oxygen saturation in 2020-10-08 09:00:00 97 /min [facility] Arterial blood by [place] [facility] [place] Pulse oximetry Branch Body temperature 2020-10-08 03:15:00 37.44 Mariaa [facility] Body height 2020-10-08 03:15:00 160 cm [facility] Body weight 2020-10-08 03:15:00 136.079 kg [facility] BMI 2020-10-08 03:15:00 53.14 kg/m2 [facility] Systolic blood 2020-10-08 09:00:00 184 mm[Hg] Univer sity of pressure [facility] Diastolic blood 2020-10-08 09:00:00 68 mm[Hg] Unive rsity of pressure [facility] Heart rate 2020-10-08 09:00:00 73 /min [facility] Respiratory rate 2020-10-08 09:00:00 16 /min [facility] Oxygen saturation in 2020-10-08 09:00:00 97 /min [facility] Arterial blood by [place] [facility] [place] Pulse oximetry Branch Body temperature 2020-10-08 03:15:00 37.44 Mariaa [facility] Body height 2020-10-08 03:15:00 160 cm [facility] Body weight 2020-10-08 03:15:00 136.079 kg [facility] BMI 2020-10-08 03:15:00 53.14 kg/m2 [facility] Systolic blood 2020-10-07 11:00:00 198 mm[Hg] Univer sity of [facility] Diastolic blood 2020-10-07 11:00:00 89 mm[Hg] Unive rsity of pressure [facility] Heart rate 2020-10-07 11:00:00 70 /min [facility] Respiratory rate 2020-10-07 11:00:00 13 /min [facility] Oxygen saturation in 2020-10-07 11:00:00 99 /min [facility] Arterial blood by [place] [facility] [place] Pulse oximetry Branch Body temperature 2020-10-07 06:50:00 37.39 Mariaa [facility] Body weight 2020-10-07 06:50:00 136.079 kg [facility] BMI 2020-10-07 06:50:00 54.87 kg/m2 [facility] Systolic blood 2020-10-07 11:00:00 198 mm[Hg] Univer [facility] Diastolic blood 2020-10-07 11:00:00 89 mm[Hg] Unive rsity of pressure [facility] Heart rate 2020-10-07 11:00:00 70 /min [facility] Respiratory rate 2020-10-07 11:00:00 13 /min [facility] Oxygen saturation in 2020-10-07 11:00:00 99 /min [facility] Arterial blood by [place] [employer] [facility] Pulse oximetry Branch Body temperature 2020-10-07 06:50:00 37.39 Mariaa [facility] Body weight 2020-10-07 06:50:00 136.079 kg [facility] BMI 2020-10-07 06:50:00 54.87 kg/m2 [facility] Systolic blood 2020-09-30 14:45:00 225 mm[Hg] Univer sity of [facility] Diastolic blood 2020-09-30 14:45:00 97 mm[Hg] Unive rsity of pressure [facility] Heart rate 2020-09-30 14:45:00 63 /min [facility] Body temperature 2020-09-30 14:45:00 36.67 Mariaa [facility] Respiratory rate 2020-09-30 14:45:00 18 /min [facility] Oxygen saturation in 2020-09-30 14:45:00 97 /min University of Arterial blood by [employer] [place] Pulse oximetry Branch Body height 2020-09-28 19:45:00 157.5 cm [facility] Body weight 2020-09-28 19:45:00 136.079 kg [facility] BMI 2020-09-28 19:45:00 54.87 kg/m2 [facility] Systolic blood 2020-09-30 14:45:00 225 mm[Hg] Univer sity of pressure [facility] Diastolic blood 2020-09-30 14:45:00 97 mm[Hg] Unive rsity of pressure [facility] Heart rate 2020-09-30 14:45:00 63 /min [facility] Body temperature 2020-09-30 14:45:00 36.67 Mariaa [facility] rate 2020-09-30 14:45:00 18 /min [facility] Oxygen saturation in 2020-09-30 14:45:00 97 /min [facility] Arterial blood by [facility] Pulse oximetry [place] Body height 2020-09-28 19:45:00 157.5 cm [facility] Body weight 2020-09-28 19:45:00 136.079 kg [facility] BMI 2020-09-28 19:45:00 54.87 kg/m2 [facility] Respiratory rate 2020-09-30 14:21:00 25 /min [facility] Respiratory rate 2020-09-30 14:21:00 25 /min [facility] Procedures Procedure Date / Time Performing Source Performed Clinician REAGENT STRIP/BLOOD GLUCOSE 2023-02-13 Outside, Reported Jesse Cornelius - 00:00:00 External AUTHORIZATION FOR RELEASE OF 2022-10-03 Doctor Unassigned, [facility] PHI 06:01:00 [place] [facility] MAMMO, screening, digital, 2020-12-07 [place] [facility] bilateral 00:00:00 Health Outreach Program URINALYSIS 2020-10-08 Mago Cobb [facility] ex 06:13:00 [facility] CT ABDOMEN PELVIS W CONTRAST 2020-10-08 [facility] 04[facility]45 [facility] LIPASE 2020-10-08 Mago Cobb [facility] ex 03:39:00 [facility] TROPONIN I 2020-10-08 Mago Cobb [facility] ex 03:39:00 [facility] COMP. METABOLIC PANEL ([id number]) 2020-10-08 Mago Cobb U [facility] 03:39:00 Medical Branch CBC WITH DIFF 2020-10-08 Mago Cobb [facility] exas 03:39:00 Medical Branch COVID-19 (ID NOW RAPID 2020-10-08 Mago Cobb [facility] TESTING) 03:39:00 Medical Branch CONSENT/REFUSAL FOR DIAGNOSIS 2020-10-08 Doctor Unassigned, [facility] AND TREATMENT 02:53:27 [place] [facility] TROPONIN I 2020-10-07 Mago Cobb [facility] ex 10:05:00 Medical Branch URINALYSIS 2020-10-07 Mago Cobb [facility] 08:06:00 Medical Branch XR CHEST 1 VW 2020-10-07 Mago Cobb [facility] 07:56:15 Medical Branch LIPASE 2020-10-07 Mago Cobb [facility] 07:38:00 Medical Branch TROPONIN I 2020-10-07 Mago Cobb [facility] 07:38:00 Medical Branch COMP. METABOLIC PANEL ([id number]) 2020-10-07 Mago Cobb [facility] 07:38:00 Medical Branch CBC WITH DIFF 2020-10-07 Mago Cobb [facility] 07:38:00 Medical Branch NOTICE OF PRIVACY PRACTICES 2020-10-07 Doctor Unassigned, [facility] 06:41:28 [place] [facility] PHACOEMULSIFICATION OF 2020-09-30 Amarilis [facility] CATARACT WITH INTRAOCULAR 13:48:00 [facility] LENS IMPLANT POCT GLUCOSE(AGE >30DAYS) 2020-09-30 Eliazar Nicolas [facility] 13:36:00 [facility] POCT GLUCOSE (AUTOMATED) 2020-09-30 Miguel Lara [facility] 13:31:00 [facility] DAY SURGERY - ADC 2020-09-30 Doctor Unassigned, [facility] 06:01:00 [place] [facility] COVID-19 (ID NOW RAPID 2020-09-29 Amarilis [facility] TESTING) 15:54:00 [place] [facility] Varicose phlebectomy [facility] Plan of Care Planned Activity Planned Date Details Comments Source Future Scheduled 2023-02-08 BREAST CANCER [facility] Test 09:46:12 SCREENING [code = BREAST CANCER SCREENING] Future Scheduled 2023-02-08 Screening for [facility] Test 09:46:12 malignant neoplasm of colon (procedure) [code = 551595289] Future Scheduled 2023-02-08 Screening for [facility] Test 09:46:12 malignant neoplasm of colon (procedure) [code = 509987325] Future Scheduled 2023-02-08 SHINGLES VACCINES (2 Met [facility] Test 09:46:12 of 3) [code = SHINGLES VACCINES (2 of 3)] Future Scheduled 2023-02-08 COVID-19 VACCINE (2 - [facility] Test 09:46:12 Moderna series) [code = COVID-19 VACCINE (2 - Moderna series)] Future Scheduled 2023-02-08 INFLUENZA VACCINE Method [facility] Test 09:46:12 [code = INFLUENZA VACCINE] Future Scheduled 2023-02-08 Screening for [facility] Test 09:46:12 malignant neoplasm of colon (procedure) [code = 187814324] Future Scheduled 2023-02-08 Screening for [facility] Test 09:46:12 malignant neoplasm of colon (procedure) [code = 102859204] Future Scheduled 2023-02-08 Screening for [facility] Test 09:46:12 malignant neoplasm of colon (procedure) [code = 529973951] Future Scheduled 2023-02-08 Screening for [facility] Test 09:46:12 malignant neoplasm of cervix (procedure) [code = 945254751] Future Scheduled 2022-12-27 Screening for [facility] Test 11:36:12 malignant neoplasm of cervix (procedure) [code = 560564801] Future Scheduled 2022-12-27 BREAST CANCER [facility] Test 11:36:12 SCREENING [code = BREAST CANCER SCREENING] Future Scheduled 2022-12-27 COLONOSCOPY SCREENING [facility] Test 11:36:12 [code = COLONOSCOPY SCREENING] Future Scheduled 2022-12-27 SHINGLES VACCINES (2 [facility] Test 11:36:12 of 3) [code = SHINGLES VACCINES (2 of 3)] Future Scheduled 2022-12-27 COVID-19 VACCINE ([facility] 11:36:12 Moderna series) [code = COVID-19 VACCINE (2 - Moderna series)] Future Scheduled 2022-12-27 INFLUENZA VACCINE [facility] Test 11:36:12 [code = INFLUENZA VACCINE] Diagnostic Test 2020-12-07 bacterial vaginosis [place] Pending 00:00:00 panel, vaginal [code [facility] = bacterial vaginosis Outrea [facility] Program panel, vaginal] Diagnostic Test 2020-12-07 pap, IG + HPV, [place] Pending 00:00:00 cervical [code = pap, [facility] IG + HPV, cervical] Outreach Program Future Scheduled BREAST CANCER [facility] Test SCREENING [code = BREAST CANCER SCREENING] Future Scheduled [facility] [code = COLONOSCOPY SCREENING] Future Scheduled SHINGLES VACCINES [facility] Test (#1) [code = SHINGLES VACCINES (#1)] Future Scheduled INFLUENZA VACCINE [facility] Test [code = INFLUENZA VACCINE] Future Scheduled COVID-19 VACCINE (1) [facility] [code = COVID-19 VACCINE (1)] Future Scheduled Screening for [facility] Test malignant neoplasm of cervix (procedure) [code = 653780417] Encounters Start End Encounter Admission Attending Care Care Encounter Source Date/Time Date/Time Type Type Clinicians Facility Department ID 2021-06-19 Outpatient Nilson LARA NMSAJAN OPH [id number] Univers 12:22:23 MIGUEL [facility] 2021-06-19 Emergency X [facility] [id number] Univers 00:01:29 [facility] 2021-06-18 Outpatient Nilson LARA NMSAJAN SWETA [id number] Univers 21:15:39 MIGUEL [facility] 2023-06-13 2023-06-13 Outpatient CHAPIS NAVARRO [id number] Chapis 10:30:00 10:30:00 HARVEY charles 2023-05-10 2023-05-10 Outpatient CHAPIS CRAIN [id number] Chapis 09:50:00 09:50:00 JACK charles 2023-04-27 2023-04-27 Outpatient CHAPIS MCMAHON [id number] Chapis 09:30:00 09:30:00 POLA Seybol d 2023-02-16 2023-02-16 Outpatient CHRISTINECHAPIS [id number] Chapis 00:00:00 00:00:00 KD Seybol d 2023-02-14 2023-02-14 Outpatient PREZASCHAPIS [id number] Chapis 00:00:00 00:00:00 POLA Seybol d 2023-02-13 2023-02-13 Outpatient LAB47 CHAPIS ANN [id number] Chapis 14:15:00 14:15:00 Seybol d 2023-02-13 2023-02-13 Outpatient CHAPIS MALIK [id number] Chapis 13:30:00 13:30:00 ROBERTO Seybol d 2023-02-08 2023-02-08 Outpatient PARASCHAPIS TREVIÑO [id number] Chapis 10:20:00 10:20:00 JACK Seybol d 2023-01-30 2023-01-30 Outpatient PARASCHAPIS TREVIÑO [id number] Chapis 10:30:00 10:30:00 JACK Seybol d 2023-01-29 2023-01-29 Outpatient PREZASCHAPIS [id number] Chapis 00:00:00 00:00:00 POLA Seybol d 2023-01-29 2023-01-29 Outpatient PREZAS, CHAPIS ANN [id number] Chapis 00:00:00 00:00:00 POLA Seybol d 2023-01-27 2023-01-27 Outpatient PREZAS, CHAPIS ANN [id number] Chapis 00:00:00 00:00:00 POLA Seybol d 2023-01-25 2023-01-25 Outpatient LAB90 CHAPIS ANN [id number] Chapis 10:45:00 10:45:00 Seybol d 2023-01-25 2023-01-25 Outpatient PREZACHAPIS Belle [id number] Chapis 10:00:00 10:00:00 POLA Seybol d 2023-01-23 2023-01-23 Outpatient CHAPIS MALIK [id number] Chapis 14:15:00 14:15:00 ROBERTO Seybol d 2023-01-23 2023-01-23 Outpatient AHMAHESHCHAPIS [id number] Chapis 00:00:00 00:00:00 MOHCINDY Seybo ld 2023-01-18 2023-01-18 Outpatient PRECHAPIS OHARA [id number] Chapis 00:00:00 00:00:00 POLA Seybol d 2023-01-18 2023-01-18 Outpatient PREZACHAPIS Belle [id number] Chapis 00:00:00 00:00:00 POLA Seybol d 2023-01-18 2023-01-18 Outpatient PREZACHAPIS Belle [id number] Chapis 00:00:00 00:00:00 POLA Seybol d 2023-01-07 2023-01-07 Outpatient PRECHAPIS OHARA [id number] Chapis 00:00:00 00:00:00 POLA Seybol d 2023-01-04 2023-01-04 Outpatient LAB90 CHAPIS ANN [id number] Chapis 09:00:00 09:00:00 Seybol d 2023-01-04 2023-01-04 Outpatient PRECHAPIS OHARA [id number] Chapis 08:15:00 08:15:00 POLA Seybol d 2023-01-04 2023-01-04 Outpatient PRECHAPIS OHARA [id number] Chapis 00:00:00 00:00:00 POLA Seybol d 2023-01-04 2023-01-04 Outpatient CHAPIS ANN [id number] Chapis 00:00:00 00:00:00 Seybol d 2023-01-01 2023-01-01 Outpatient CHAPIS AZUL [id number] Chapis 00:00:00 00:00:00 KAYLIE Seybol d 2023-01-01 2023-01-01 Outpatient CHAPIS ANN [id number] Chapis 00:00:00 00:00:00 Seybol d 2022-12-28 2022-12-28 Outpatient CHAPIS AZUL [id number] Chapis 10:00:00 10:00:00 JINU Seybol d 2022-12-28 2022-12-28 Outpatient STEVEN URBINA [facility] [id number] [place] 00:00:00 00:00:00 SSA 63469 da [facility] Program 2022-12-27 2022-12-27 Outpatient PREZAS, CHAPIS ANN [id number] Chapis 00:00:00 00:00:00 POLA Seybol d 2022-12-25 2022-12-25 Outpatient LATHA, CHAPIS ANN [id number] Chapis 00:00:00 00:00:00 JINU Seybol d 2022-12-25 2022-12-25 Outpatient PREZAS, CHAPIS ANN [id number] Chapis 00:00:00 00:00:00 POLA Seybol d 2022-12-24 2022-12-24 Outpatient PREZAS, CHAPIS ANN [id number] Chapis 00:00:00 00:00:00 POLA Seybol d 2022-12-21 2022-12-21 Outpatient FB, TECH CHAPIS ANN [id number] Chapis 14:00:00 14:00:00 Seybol d 2022-12-20 2022-12-20 Outpatient JIMMIE, CHAPIS ANN [id number] Chapis 00:00:00 00:00:00 JEAN CARLOS Seybo ld 2022-12-18 2022-12-18 Outpatient PREZAS, CHAPIS ANN [id number] Chapis 13:45:00 13:45:00 POLA Seybol d 2022-12-11 2022-12-11 Outpatient PREZAS, CHAPIS ANN [id number] Chapis 00:00:00 00:00:00 POLA Seybol d 2022-12-11 2022-12-11 Outpatient JIMMIE, CHAPIS ANN [id number] Chapis 00:00:00 00:00:00 JEAN CARLOS Seybo ld 2022-12-06 2022-12-06 Outpatient PREZAS, CHAPIS ANN [id number] Chapis 00:00:00 00:00:00 POLA Seybol d 2022-12-06 2022-12-06 Outpatient PREZACHAPIS Belle [id number] Chapis 00:00:00 00:00:00 POLA Seybol d 2022-12-05 2022-12-05 Outpatient JIMMIECHAPIS [id number] Chapis 14:00:00 14:00:00 JEAN CARLOS Seybo ld 2022-12-05 2022-12-05 Outpatient MYKELSEYONL CHAPIS ANN [id number] Chapis 00:00:00 00:00:00 MD RAJ Seybol d 2022-12-05 2022-12-05 Outpatient CHAPIS NAVARRO [id number] Chapis 00:00:00 00:00:00 SYLVIA Seybol d 2022-12-01 2022-12-01 Outpatient CHAPIS AZUL [id number] Chapis 10:30:00 10:30:00 JINU Seybol d 2022-11-22 2022-11-22 Outpatient JIMMIECHAPIS [id number] Chapis 10:00:00 10:00:00 JEAN CARLOS Seybo ld 2022-11-21 2022-11-21 Outpatient CHAPIS ANN [id number] Chapis 13:45:00 13:45:00 Seybol d 2022-11-20 2022-11-20 Outpatient PREZACHAPIS Belle [id number] Chapis 13:45:00 13:45:00 POLA Seybol d 2022-11-20 2022-11-20 Outpatient PRECHAPIS OHARA [id number] Chapis 00:00:00 00:00:00 POLA Seybol d 2022-11-14 2022-11-14 Outpatient PREZASCHAPIS [id number] Chapis 00:00:00 00:00:00 POLA Seybol d 2022-11-13 2022-11-13 Outpatient CHAPIS AZUL [id number] Chapis 10:00:00 10:00:00 JINU Seybol d 2022-11-13 2022-11-13 Outpatient TRED45 CHAPIS ANN [id number] Chapis 10:00:00 10:00:00 Seybol d 2022-11-10 2022-11-10 Outpatient LAB90 CHAPIS SPARKSSEY [id number] Chapis 11:05:00 11:05:00 Seybol d 2022-11-09 2022-11-09 Outpatient CHAPIS MCMAHON [id number] Chapis 00:00:00 00:00:00 POLA Seybol d 2022-10-30 2022-10-30 Outpatient CHAPIS MCMAHON CHAPIS [id number] Chapis 13:45:00 13:45:00 POLA Seybol d 2022-10-26 2022-10-26 Outpatient PREZACHAPIS Belle CHAPIS [id number] Chapis 00:00:00 00:00:00 POLA Seybol d 2022-10-03 2022-10-03 Orders Doctor ROBERT [id number] Univers 00:00:00 00:00:00 Only Unassigned, [id number] as [id number] [address] 2022-01-24 2022-01-24 [facility] [id number] Univers 14:30:00 14:30:00 ENRIKE [facility] 2021-03-02 2021-03-02 Outpatient ELY_KOKO URBINA [place] [id number] [place] 02:42:00 02:42:00 [id number] [facility] 2020-12-08 2020-12-08 Outpatient Nilson LARA [facility] [id number] Univers 10:45:00 10:45:00 MIGUEL [facility] 2020-12-07 2020-12-07 Outpatient ELY_KOKO URBINA [id number] [place] 01:00:00 01:00:00 [id number] [facility] 2020-12-07 2020-12-07 Koko URBINA [place] - [id number] M [place] 00:00:00 00:00:00 Kendell Henning MD: [facility] [address] [place] [address] [place], [place], [place] Outreac [id number] h , Ph. Program 2020-11-18 2020-11-18 Outpatient ELY_KOKO URBINA [facility] [id number] [place] 11:13:00 11:13:00 [id number] [facility] 2020-11-17 2020-11-17 Outpatient ELY_KOKO URBINA [facility] [id number] [place] 04:26:00 04:26:00 [id number] da [facility] 2020-10-07 2020-10-08 Emergency [facility] [id number] Univers 21:06:00 03:35:00 Mago [place] [id number] ity of [place] 4.2.7.2.686 [facility] [id number] [place] [address] Branch 2020-10-07 2020-10-08 [facility] [id number] 21:06:00 03:35:00 [place] [id number] [place] 4.2.7.2.686 [place] [id number] 084 2020-10-07 2020-10-07 [facility] [id number] Univers 01:01:00 06:15:00 Mago [place] [id number] ity of [place] 4.2.7.2.[address] [place] [address] [id number] [place] [address] Branch 2020-10-07 2020-10-07 Emergency X [facility] E[facility] [id number] Univers 01:01:00 06:15:00 JACKSONLI ity of [facility] 2020-10-07 2020-10-07 [facility] [id number] 01:01:00 06:15:00 [place]ago [place] [id number] [place] 4.2.7.2.686 [place] [id number] 2020-09-30 2020-09-30 [facility] [id number] Univers 07:01:00 09:00:00 Encounter Miguel Case [id number] ity [place].686 [place] [facility] [id number] [facility] [address] [place] 2020-09-30 2020-09-30 [facility] 1.2.840.114 [id number] 07:01:00 09:00:00 Encounter Miguel Manpreet 350.1.13.10 [place] 4.2.7.2.686 Surgical [id number] [place] [address] 2020-09-30 2020-09-30 Anesthesia Eliazar Nicolas [facility] 1.2.840.11 [id number] [facility] 07:53:00 08:23:00 Michael Ryan 350.1.13.10 [place]y [place] [id number] [facility] 020 [place] 2020-09-30 2020-09-30 Anesthesia Eliazar Nicolas [facility] 1.2.840.11 [id number] 07:53:00 08:23:00 Michael Ryan 350.1.13.10 [place] 4.2.7.2.686 Surgical [id number] [place] 020 2020-09-30 2020-09-30 Orders Doctor JONES 1.2.840.114 [id number] [facility] 00:00:00 00:00:00 Only UnassignedELIESER 350.1.13.10 ity of [place] [facility] 4.2.7.2.686 [place] as [id number] [address] 2020-09-30 2020-09-30 Orders Doctor JONES [id number] 00:00:00 00:00:00 Only Unassigned, ELIESER 350.1.13.10 [facility] 4.2.7.2.686 [id number] 2020-09-29 2020-09-29 Laboratory Only, Adc Test [facility] 1.2.840. 114 [id number] Univers 09:40:08 09:55:08 Only Miguel Lara Brian Case 350.1.1 3.10 ity [place] [facility] 4.2.7.2.686 [facility] [id number] [address] 2020-09-29 2020-09-29 Laboratory Only, [facility] 1.2.840.114 [id number] 09:40:08 09:55:08 Only Test Manpreet 350.1.13.10 [place] 4.2.7.2.686 [place] [id number] [facility] 2020-09-29 2020-09-29 Outpatient Nilson LARA [facility] [id number] Univers 09:15:00 09:15:00 MIGUEL jose [facility] 2020-09-21 2020-09-21 Outpatient Nilson LARA [facility] [id number] Univers 11:15:00 11:15:00 MIGUEL [facility] 2020-07-07 2020-07-07 Outpatient [facility] [place] 02:18:00 02:18:00 1118 [facility] 2018-07-08 2018-07-08 Ambulatory nullFlavo MNA [id number] Memoria 16:00:00 16:00:00 Pre-Reg r Neurology 02 l Franky Barrera 2018-07-08 2018-07-08 Ambulatory nullFlavo MNA [id number] Memoria 16:00:00 16:00:00 Pre-Reg r Neurology 02 l Franky Barrera 2018-07-08 2018-07-08 Outpatient MHIE MHIE [id number] Memoria 10:00:00 10:00:00 02 salvador Barrera 2018-07-08 2018-07-08 Outpatient MELLISSA HollisRIANITHA MISCHER [id number] 10:00:00 10:00:00 Raz Murillo 2018-04-10 2018-04-10 Outpatient MHIE MHIE [id number] Memoria 16:00:00 16:00:00 01 salvador Barrera 2018-04-10 2018-04-10 Outpatient MHIE MHIE [id number] Memoria 16:00:00 16:00:00 salvador Barrera 2018-03-06 2018-03-06 Outpatient MHIE MHIE [id number] Memoria 13:30:00 13:30:00 00 salvador Barrera 2018-03-06 2018-03-06 [id number] Memoria 13:30:00 13:30:00 00 salvador Barrera Results Test Description Test Time Test Comments Results Result Comments Source REAGENT STRIP/BLOOD GLUCOSE 2023-02-13 00:00:00 Test Item Value Reference Range Interpretation Comme nts BLOOD SUGAR (test code = 886629) 167 mg/dL 65-99 A Lab Interpretation (test code = 61904-4) Abnormal Chapis Seybold - [id number] 07:39:00 Test Item Value Reference Range Interpretation Comments APPEARANCE (test code = Clear Clear 0253292421) COLOR (test code = Straw Yellow A 0598612069) PH (test code = 4.8-8.0 0342380607) SP GRAVITY (test code = 1.003-1.030 3130317201) GLU U QUAL (test code = Normal Normal 8354363249) BLOOD (test code = Negative Negative 8750648189) KETONES (test code = Negative Negative 8503743522) PROTEIN (test code = 100 mg/dL Negative A 2887-8) UROBILIN (test code = Normal Normal 8192516695) BILIRUBIN (test code = Negative Negative 2504206256) NITRITE (test code = Negative Negative 5281503678) LEUK ARVIN (test code = Negative Negative 8576752873) RBC/HPF (test code = See_Comment [Autom ated message] 4188447529) The system [employer] generated this result transmit erika reference range : 0 - 3 HPF. The refe rence range was not u sed to interpret th is result as normal/abnormal . WBC/HPF (test code = See_Comment [Autom ated message] 5706269565) The system [employer] generated this result transmit erika reference range : 0 - 5 HPF. The refe rence range was not u sed to interpret th is result as normal/abnormal . BACTERIA (test code = Few Negative A 3645527921) SQ EPITH (test code = HPF 4232308260) TRANS EPI (test code = <1 See_Comment [Aut omated message] 1855384751) The system [employer] generated this result transmit erika reference range : <=1 HPF. The refere nce range was not u sed to interpret th is result as normal/abnormal . Lab Interpretation (test Abnormal code = 74078-3) [facility] PELVIS W [id number] 04:45:[address] findings to account for patient's symptoms. Hepatomegaly and steatosis. Preliminary Report Dictated by Resident: Raleigh Albert ?MD Debbi., have reviewed this study and agree withthe [...] reviewed this study and agree withthe above report.[facility] SpringsTRSRINIVASA [id number] 04:13:00 Test Item Value Reference Range Interpretation Comments TROPONIN I (test 0.040 ng/mL See_Comment H [Automated code = 6751235303) message] The system which generated this result [...] ? Lab Interpretation Abnormal (test code = 12439-4) [facility] (ID NOW RAPID TESTING)2020-10-08 04:03:00 Test Item Value Reference Range Interpretation Comments SARS-CoV-2 Rapid ID NOW Not Detected Not Detected (test code = 86320-3) ANDREW (test code = ANDREW) ID NOW COVID-19 Assay is an isothermal nucleic acid amplification test intended for the qualitative detection of nucleic acid from SARS-CoV-2 viral RNA in nasopharyngeal (CANDY BUTCHER) specimens. It is used under Emergency Use [...] indicated. Lab Interpretation Normal (test code = 60438-9) [facility]. METABOLIC PANEL (24272)2020-10-08 04:02:00 Test Item Value Reference Range Interpretation Comments NA (test code = 134 mmol/L 135-145 L 4784299110) K (test code = 4.2 mmol/L 3.5-5 7649122168) CL (test code = 98 mmol/L 98-108 8239078332) CO2 TOTAL (test code = 34 mmol/L 23-31 H 3976997422) AGAP (test code = 2-16 3524407725) BUN (test code = 33 mg/dL 7-23 H 0867285383) GLUCOSE (test code = 100 mg/dL 70-110 0331782482) CREATININE (test code = 1.41 mg/dL 0.5-1.04 H 2521422572) TOTAL BILI (test code = 0.5 mg/dL 0.1-1.8 9769657186) CALCIUM (test code = 9.1 mg/dL 8.6-10.6 0437411872) T PROTEIN (test code = 7.3 g/dL 6.3-8.2 5865446494) ALBUMIN (test code = 3.7 g/dL 3.5-5 8512358525) ALK PHOS (test code = 78 U/L 34-122 5216103224) ALTv (test code = 15 U/L 5-35 1742-6) AST(SGOT) (test code = 24 U/L 13-40 8458819119) eGFR Calculation mL/min/1.73m2 (Non-) (test code = 7340004535) eGFR Calculation mL/min/1.73m2 () (test code = 9151388344) ANDREW (test code = ANDREW) Association of [...] tests). Lab Interpretation Abnormal (test code = 13800-3) [facility]2021-[facility]-19 04:02:00 Test Item Value Reference Range Interpretation Comments LIPASE (test code = 4863180733) 54 U/L 0-220 Lab Interpretation (test code = Normal 95971-6) [facility] WITH [id number] 03:55:00 Test Item Value Reference Range Interpretation Comments WBC (test code = See_Comment [Automated message] 6690-2) The system [employer] generated this result transmitted ref erence range: 4.30 - 1 1.10 10*3/?L. The re ference range was not u sed to interpret this result as normal/abnor mal. RBC (test code = See_Comment [Automated message] 789-8) The system [employer] generated this result transmitted ref erence range: [...] RDW-SD (test code 47.6 fL 39-49.9 = 76149-9) RDW-CV (test code 14.6 % 12-15.5 = 788-0) PLT (test code = See_Comment [Automated message] 777-3) The system whic h generated this result transmitted ref erence range: 166 - 35 8 10*3/?L. The re ference range was not u sed to interpret this result as normal/abnor mal. MPV (test code = 11.0 fL 9.5-12.9 29971-2) NRBC/100 WBC (test See_Comment [Automat ed message] code = 2950720268) The syste m which generated this result transmitted ref erence range: 0.0 - 10 .0 /100 WBCs. The refer ence range was not u sed to interpret this result as normal/abnor mal. NRBC x10^3 (test <0.01 See_Comment [Automated message] code = 5865217380) The syste m which generated this result transmitted ref erence range: 10*3/?L. The reference range was not used to interpr et this result as normal/abnormal . GRAN MAT (NEUT) % 70.6 % (test code = 770-8) IMM GRAN % (test 0.40 % code = 3400866545) LYMPH % (test code 18.6 % = 736-9) MONO % (test code 8.8 % = 5905-5) EOS % (test code = 1.0 % 713-8) BASO % (test code 0.6 % = 706-2) GRAN MAT 5.89 10*3/uL 1.88-7.09 x10^3(ANC) (test code = 1355300509) IMM GRAN x10^3 0.03 10*3/uL 0-0.06 (test code = 8265763087) LYMPH x10^3 (test 1.55 10*3/uL 1.32-3.29 code = 731-0) MONO x10^3 (test 0.73 10*3/uL 0.33-0.92 code = 742-7) EOS x10^3 (test 0.08 10*3/uL 0.03-0.39 code = 711-2) BASO x10^3 (test 0.05 10*3/uL 0.01-0.07 code = 704-7) [facility] [id number] 10:48:00 Test Item Value Reference Range Interpretation Comments TROPONIN I (test 0.039 ng/mL See_Comment H [Automated code = 3610860474) message] The system which generated this result [...] ? Lab Interpretation Abnormal (test code = 04887-7) [facility]21-[facility]18 08:57:00 Test Item Value Reference Range Interpretation Comments LIPASE (test code = 8483530162) 46 U/L 0-220 Lab Interpretation (test code = Normal 30828-6) [facility]2021-02-18 08:44:00 Test Item Value Reference Range Interpretation Comments APPEARANCE (test code = Clear Clear 2982240597) COLOR (test code = Yellow Yellow 4712334924) PH (test code = 4.8-8.0 6146678494) SP GRAVITY (test code = 1.003-1.030 6913628892) GLU U QUAL (test code = 50 mg/dL Normal A 0213132164) BLOOD (test code = Negative Negative 7613204389) KETONES (test code = Negative Negative 0318728640) PROTEIN (test code = 500 mg/dL Negative A 2887-8) UROBILIN (test code = Normal Normal 9966770497) BILIRUBIN (test code = Negative Negative 7359719195) NITRITE (test code = Negative Negative 4963301939) LEUK ARVIN (test code = Negative Negative 8087400662) RBC/HPF (test code = See_Comment [Autom ated message] 3197758472) The system [employer] generated this result transmit erika reference range : 0 - 3 HPF. The refe rence range was not u sed to interpret th is result as normal/abnormal . WBC/HPF (test code = See_Comment [Autom ated message] 9614487551) The system [employer] generated this result transmit erika reference range : 0 - 5 HPF. The refe rence range was not u sed to interpret th is result as normal/abnormal . BACTERIA (test code = Few Negative A 3989309435) SQ EPITH (test code = HPF 8169065655) HYAL CAST (test code = See_Comment H [Aut omated message] 4060631116) The system [employer] generated this result transmit erika reference range : <=2 LPF. The refere nce range was not u sed to interpret th is result as normal/abnormal . TRANS EPI (test code = <1 See_Comment [Aut omated message] 9629065197) The system [employer] generated this result transmit erika reference range : <=1 HPF. The refere nce range was not u sed to interpret th is result as normal/abnormal . Lab Interpretation (test Abnormal code = 74625-8) [facility]TR[facility]ITALOanh [id number] 08:13:00 Test Item Value Reference Range Interpretation Comments TROPONIN I (test 0.036 ng/mL See_Comment H [Automated code = 8946749398) message] The system which generated this result [...] ? Lab Interpretation Abnormal (test code = 56493-7) [facility]. METABOLIC PANEL (90983)2020-10-07 08:02:00 Test Item Value Reference Range Interpretation Comments NA (test code = 136 mmol/L 135-145 9386340438) K (test code = 4.4 mmol/L 3.5-5 6934775714) CL (test code = 100 mmol/L 98-108 8774558112) CO2 TOTAL (test code = 32 mmol/L 23-31 H 0643965631) AGAP (test code = 2-16 6769662803) BUN (test code = 35 mg/dL 7-23 H 6250419651) GLUCOSE (test code = 138 mg/dL 70-110 H 4391958393) CREATININE (test code = 1.25 mg/dL 0.5-1.04 H 7900940255) TOTAL BILI (test code = 0.5 mg/dL 0.1-1.1 7159604978) CALCIUM (test code = 9.1 mg/dL 8.6-10.6 6950630733) T PROTEIN (test code = 6.8 g/dL 6.3-8.2 2065359130) ALBUMIN (test code = 3.5 g/dL 3.5-5 0948693721) ALK PHOS (test code = 74 U/L 34-122 9071024091) ALTv (test code = 16 U/L 5-35 1742-6) AST(SGOT) (test code = 26 U/L 13-40 2594334301) eGFR Calculation mL/min/1.73m2 (Non-) (test code = 5352507553) eGFR Calculation mL/min/1.73m2 () (test code = 0992647363) ANDREW (test code = ANDREW) Association of [...] tests). Lab Interpretation Abnormal (test code = 23882-7) [facility] WITH [id number] 07:45:00 Test Item Value Reference Range Interpretation Comments WBC (test code = See_Comment [Automated message] 6690-2) The system [employer] generated this result transmitted ref erence range: 4.30 - 1 1.10 10*3/?L. The re ference range was not u sed to interpret this result as normal/abnor mal. RBC (test code = See_Comment [Automated message] 789-8) The system [employer] generated this result transmitted ref erence range: [...] RDW-SD (test code 47.0 fL 39-49.9 = 06969-5) RDW-CV (test code 14.6 % 12-15.5 = 788-0) PLT (test code = See_Comment [Automated message] 777-3) The system [employer] generated this result transmitted ref erence range: 166 - 35 8 10*3/?L. The re ference range was not u sed to interpret this result as normal/abnor mal. MPV (test code = 11.7 fL 9.5-12.9 64167-3) NRBC/100 WBC (test See_Comment [Automat ed message] code = 5336022493) The syste [employer] which generated this result transmitted ref erence range: 0.0 - 10 .0 /100 WBCs. The refer ence range was not u sed to interpret this result as normal/abnor mal. NRBC x10^3 (test <0.01 See_Comment [Automated message] code = 8744880611) The syste m which generated this result transmitted ref erence range: 10*3/?L. The reference range was not used to interpr et this result as normal/abnormal . GRAN MAT (NEUT) % 76.3 % (test code = 770-8) IMM GRAN % (test 0.30 % code = 6263596374) LYMPH % (test code 15.4 % = 736-9) MONO % (test code 7.0 % = 5905-5) EOS % (test code = 0.6 % 713-8) BASO % (test code 0.4 % = 706-2) GRAN MAT 7.06 10*3/uL 1.88-7.09 x10^3(ANC) (test code = 0571617383) IMM GRAN x10^3 0.03 10*3/uL 0-0.06 (test code = 3959670063) LYMPH x10^3 (test 1.43 10*3/uL 1.32-3.29 code = 731-0) MONO x10^3 (test 0.65 10*3/uL 0.33-0.92 code = 742-7) EOS x10^3 (test 0.06 10*3/uL 0.03-0.39 code = 711-2) BASO x10^3 (test 0.04 10*3/uL 0.01-0.07 code = 704-7) [facility] GLUCOSE (AUTOMATED)2020-09-30 13:41:00 Test Item Value Reference Range Interpretation Comments POCT GLU (test code = 1349200065) 101 mg/dL 70-110 Lab Interpretation (test code = Normal 25126-4) [facility] [id number] 13:36:00 Test Item Value Reference Range Interpretation Comments POCT Glu (age>30days) (test code = 101 mg/dL 70-110 3342) [facility] (ID NOW RAPID TESTING)2020-09-29 16:13:00 Test Item Value Reference Range Interpretation Comments SARS-CoV-2 Rapid ID NOW Not Detected Not Detected (test code = 83122-9) ANDREW (test code = ANDREW) ID NOW COVID-19 Assay is an isothermal nucleic acid amplification test intended for the qualitative detection of nucleic acid from SARS-CoV-2 viral RNA in nasopharyngeal (CANDY BUTCHER) specimens. It is used under Emergency Use [...] indicated. Lab Interpretation Normal (test code = 14188-7) [facility]
[2023-02-17] MEDS ORDERED: SOD POLYSTYREN SUL 15 GM/60 ML UCUP PO ONE (23:27)
[2023-02-17] MEDS ORDERED: ALBUTEROL 2.5 MG/3 ML NEB SOL NEB ONE (23:27)
--- NOTE | 2023-02-17 23:46 | P.HP ---
Certification for Inpatient Patient admitted to: Inpatient With expected LOS: >2 Midnights Patient will require the following post-hospital care: None Practitioner: I am a practitioner with admitting privileges, knowledge of patient current condition, hospital course, and medical plan of care. Services: Services provided to patient in accordance with Admission requirements found in Title 42 Section 412.3 of the Code of Federal Regulations Patient History Date of Service: 02/18/23 Reason for admission: acute kidney injury History of Present Illness: 62 year old female with past medical history of HTN, HLD, CHF, DM, CKD stage 4, hypothyroidism, MAX is a transfer from [facility] for acute kidney injury. She originally presented to the emergency room for left flank pain. She reported left flank pain for 2 weeks that is not resolving. She reports nothing makes her flank pain better, or worse. She reports associated nausea, abdominal tenderness. On ER evaluation, she was noted to have hypertensive urgency, acute cystitis, renal cyst, acute on chronic kidney injury, and hyperkalemia. She denies no reported loose stools, dysuria, vomiting, no fever, chills, cough or shortness of breath, chest pain,. She denies previous NV, PCI, or stroke. Allergies Penicillins Allergy (Unknown, Verified 01/26/21 08:52) Itching, [place] Home Medications: Fluticasone/Umeclidin/Vilanter [Trelegy Ellipta 200-62.5-25] 1 puff IH DAILY 12/29/20 Rosuvastatin [Crestor*] 2 tab PO BEDTIME 12/29/20 Carvedilol [Coreg] 12.5 mg PO BID 01/26/21 Clonidine [Catapres-Tts 1] 0.2 mg TOP Q7D 12/27/22 Gabapentin 300 mg PO BID 12/27/22 Hydralazine [Apresoline*] 50 mg PO BID 12/27/22 Aspirin Chewable [Aspirin Chewable*] 81 mg PO DAILY tab.chew 12/30/22 Bumetanide [Bumex*] 1 mg PO BID #60 tab 12/30/22 Insulin 70/30 NPH/Reg Human [Novolin 70/30*] 10 unit SQ BIDAC #0 ml 12/30/22 Irbesartan 75 mg PO DAILY #30 tab 12/30/22 metOLazone [Zaroxolyn*] 2.5 mg PO Q48H #15 tab 12/30/22 Albuterol Inhaler [Ventolin Inhaler] 2 puff IH Q6H PRN 02/17/23 Fluticasone Propion/Salmeterol [Fluticasone-Salmeterol 500-50] 02/17/23 Gabapentin 300 mg PO BID 02/17/23 Insulin Detemir [Levemir Flexpen] 20 unit SQ BEDTIME 02/17/23 Irbesartan 150 mg PO DAILY 02/17/23 Levothyroxine [Synthroid] 125 mcg PO [id number] 02/17/23 Montelukast [Singulair] 10 mg PO DAILY 02/17/23 Spironolactone [Aldactone*] 1 tab PO BID 02/17/23 carvediloL [Carvedilol] 12.5 mg PO BID 02/17/23 - Past Medical/Surgical History Has patient received pneumonia vaccine in the past: Yes Diabetic: Yes -: DM 2 -: Morbid obesity -: Hypothyroidism -: HLD -: MAX on CPAP. -: CKD III/IV with Proteinuria (Dr. Granados) -: HTN - Social History Alcohol use: Yes CD- Drugs: No Caffeine use: Yes Review of Systems General: As per HPI Physical Examination - Physical Exam General: Alert, Oriented x3, Cooperative HEENT: Atraumatic, Normocephalic Neck: Supple, 2+ carotid pulse no bruit Respiratory: Clear to auscultation bilaterally, Normal air movement Cardiovascular: Regular rate/rhythm, Normal S1 S2 Capillary refill: Other (+2BLE edema) Gastrointestinal: Normal bowel sounds, Non-distended, No rebound, Other (L) flank tenderness, Mild suprapubic tenderness) Musculoskeletal: No clubbing, No swelling Integumentary: No rashes, No breakdown Neurological: Normal gait, Normal speech Assessment and Plan - Plan Assessment/Plan HTN urgency Hyperkalmemia acute cystitis Acute on chronic kidney injury renal cyst CKD stage 4 Diabetes type 2 hypothyroidism DVT prplx Assessment/Plan admit to med surg, telemetry Renal consult HTN urgency-prn hydrazine, resume approp home medications Hyperkalmemia-kayexaylate, albuterol, abad bmp in am acute cystitis-iv abx Acute on chronic kidney injury-500 cc ns, renal cyst-renal to follow CKD stage 4 Diabetes type 2 insulin dependant-acc hs, ssi, lantus hs hypothyroidism- resume approp home med diet renal full code DVT heparin Discharge Plan: Home - Advance Directives Does patient have a Living Will: No Does patient have a Durable POA for Healthcare: No
[2023-02-18] MEDS ORDERED: NA CHLORIDE 0.9% 500 ML IV ONE (00:24)
[2023-02-18] MEDS ORDERED: METOLAZONE 2.5 MG TABLET PO SCH (01:00)
[2023-02-18] MEDS: HYDRALAZINE HCL 20 MG/ML VIAL IV PRN ×2 (01:30→06:13)
[2023-02-18 03:24] VITALS: O2SAT 95; BMI 54.8
[2023-02-18] MEDS ORDERED: ACETAMINOPHEN 325 MG TABLET PO PRN (04:29)
[2023-02-18] MEDS ORDERED: LEVOTHYROXINE SOD 0.125 MG TAB PO SCH (06:00)
[2023-02-18 06:24] LABS: Absolute Lymphocytes (CBC) 1.2 K/uL (0.7-4.9); Hematocrit 34.3 % (36.0-45.0); Lymphocytes % 14.3 % (15.3-44.8); MCV 91.4 fL (80-100); MPV 9.7 fL (7.6-11.3); RBC Red Blood Cell Count 3.75 M/uL (3.86-4.86)
[2023-02-18 06:42] LABS: Magnesium 2.2 mg/dL (1.6-2.4); Potassium 4.7 mEq/L (3.5-5.1)
[2023-02-18] MEDS: HEPARIN 5000 UNIT/ML 1 ML VIAL SQ SCH ×3 (07:00→17:00)
[2023-02-18] MEDS: INSULIN -REGULAR HUMAN 50 UNIT/0.5 ML ML SQ SCH ×3 (07:30→16:30)
[2023-02-18 08:19] VITALS: BP 160/68
[2023-02-18 08:54] VITALS: TEMP 96.5
[2023-02-18] MEDS ORDERED: HYDRALAZINE HCL 25 MG TABLET PO SCH ×2 (09:00→14:00)
[2023-02-18] MEDS ORDERED: CLONIDINE 0.1 MG/PATCH TD SCH (09:00)
[2023-02-18] MEDS ORDERED: MONTELUKAST 10 MG TAB PO SCH (09:00)
[2023-02-18] MEDS ORDERED: GABAPENTIN 300 MG CAP PO SCH (09:00)
[2023-02-18] MEDS ORDERED: CLONIDINE 0.2 MG/PATCH TD SCH (09:00)
[2023-02-18] MEDS ORDERED: ASPIRIN 81 MG CHEWABLE TABLET PO SCH (09:00)
[2023-02-18] MEDS ORDERED: carvediloL 12.5 MG TAB PO SCH (09:00)
[2023-02-18] MEDS ORDERED: ONDANSETRON 4 MG/2 ML VIAL IV PRN (09:21)
--- NOTE | 2023-02-18 13:21 | P.PN ---
Subjective Date of Service: 02/18/23 Chief Complaint: acute kidney injury Patient states she is doing much better today. She reports history of chronic kidney disease stage IV. She denies any abdominal pain or flank pain today. She has no complaint and desires to go home. Physical Examination - Vital Signs Temperature: 96.5 F Blood Pressure: 160/68 Pulse: 80 Respirations: 18 Pulse Ox (%): 95 - Physical Exam General: Alert, In no apparent distress, Oriented x3, Obese HEENT: Mucous membr. moist/pink Neck: Supple, JVD not distended Respiratory: Clear to auscultation bilaterally, Normal air movement Cardiovascular: No edema, Regular rate/rhythm, Normal S1 S2 Gastrointestinal: Normal bowel sounds, Soft and benign, Non-distended, No tenderness Musculoskeletal: No swelling Integumentary: No rashes, No cyanosis Neurological: Normal speech, Normal strength at 5/5 x4 extr, Cranial nerves 3-12 intact - Studies Laboratory Data (last 24 hrs) 02/18/23 05:25: Sodium 136, Potassium 4.7, BUN 62 H, Creatinine 2.51 H, Glucose 166 H, Magnesium 2.2 02/18/23 05:25: WBC 8.70, Hgb 11.1 L, Hct 34.3 L, Plt Count 175 Assessment And Plan - Current Problems (Diagnosis) (1) Chronic kidney disease, stage IV (severe) Current Visit: Yes Status: Acute (2) Acute pyelonephritis Current Visit: Yes Status: Acute (3) Hypertension Current Visit: Yes Status: Acute - Plan Continue IV Rocephin. Follow urine culture obtained at [place]. Baseline serum creatinine is unknown. I suspect 2.5 is pretty close to her baseline for chronic kidney disease stage IV. Obtain urine culture. Continue home antihypertensives except irbesartan given hyperkalemia on presentation. Aldactone is on hold due to hyperkalemia. Nephrology consult. Activity as tolerated.
--- NOTE | 2023-02-18 14:54 | CON ---
Date of Consultation: 02/18/2023 Reason For Consultation: Chronic renal insufficiency. History Of Present Illness: Ms. Mojica is a 62-year-old female with past medical history significan t for type 2 diabetes that is uncontrolled, obesity, hypertension, chronic kidney disease stage 4 sec ondary to diabetic nephropathy, hypothyroidism, presented to [facility]. The patient was transferred from [facility] for acute renal failure. [facility], which was going on for about 2 weeks and was not resolving. She rep orted associated nausea and abdominal discomfort associated in the suprapubic area. In the emergency room, she was noted to have hypertensive emergency, acute cystitis and renal cyst and acute on chron ic kidney injury and hyperkalemia. Hence, she has been admitted to the hospital for IV antibiotics u se and monitoring. Past Medical History: Significant for uncontrolled type 2 diabetes for many years with diabetic neur opathy and diabetic nephropathy, hypertension, type 2 diabetes, chronic congestive heart failure, rikki ropathy, depression, hypothyroidism. Social History: Lives at home. No history of smoking or alcohol use reported. Review of Systems: As per history of present illness. Physical Examination: Vital Signs: At this time are showing temperature of 96.5, pulse rate of 80, respiratory rate of 18, and blood pressure 160/68. General: She appears in no acute distress. HEENT: Atraumatic head. Lungs: Auscultation of lungs revealed bilateral equal air entry. Abdomen: Obese and nontender. Extremities: Shows no evidence of edema. Current Laboratory Data: Showing sodium of 136, potassium of 4.7, chloride of 103, BUN of 62, and cr eatinine 2.51. CBC showing stable hemoglobin, hematocrit, and platelet count. Urinalysis was not ob tained. Current Medications: Have been reviewed. She is on albuterol, aspirin, carvedilol, clonidine patch, gabapentin, hydralazine p.r.n. 50 mg b.i.d., rosuvastatin, and Kayexalate 1 time dose was given. Impression: 1.Acute on chronic renal insufficiency with underlying type 2 diabetes, nephropathy, likely secondar y to urinary tract infection and some mild dehydration currently with stable renal function. Continu e to monitor closely. 2.Urinary tract infection. The patient is on Rocephin. We will continue the same and follow up on urine cultures. 3.Hypertensive urgency. The patient is on clonidine patch and she was also taking spironolactone al penelope with hydralazine at home along with carvedilol. Spironolactone is on hold because of concern for hyperkalemia. Blood pressures are slowly improving at this time. I will go ahead and increase hydr alazine from 50 b.i.d. to 3 times a day and blood pressures can be monitored closely and spironolacto ne can be on hold at this time. Her volume status is at this time stable, hence we will hold off on starting any diuretics at this time and follow up on labs closely. Plan: Overall the patient is doing okay. Renal function is stable. Avoid hypotension and nephrotox ins. Continue treatment for urinary tract infection and labs can be repeated and monitored. VV/MODL Voice ID: [id number] Report ID: [id number]
--- NOTE | 2023-02-18 15:25 | RAD REPORT ---
EXAM DESCRIPTION: CT - Abdomen Pelvis Wo Contrast - 02/18/2023 2:55 pm CLINICAL HISTORY: Abdominal pain. Left flank pain COMPARISON: None TECHNIQUE: Computed axial tomography of the abdomen and pelvis was obtained. IV and oral contrast we re not requested. All CT scans are performed using dose optimization technique as appropriate and may include automated exposure control or mA/KV adjustment according to patient size. FINDINGS: The evaluation of solid organs, vessels and bowel is limited secondary to the lack of con trast administration. The liver, spleen, pancreas, and adrenals appear grossly normal Bilateral low and intermediate density renal masses. The appendix is normal. There is no evidence of diverticulitis. Cholecystectomy Spondylosis lumbar spine resulting in spinal stenosis Hysterectomy. No adnexal mass Diastases rectus abdominis muscles 10 centimeters IMPRESSION: Bilateral small low and intermediate density renal masses. Nonemergent renal ultrasound recommended
--- NOTE | 2023-02-18 15:50 | P.DS ---
Admission Date: 02/17/23 Discharge Date: 02/18/23 Disposition: ROUTINE DISCHARGE Discharge Condition: FAIR Reason for Admission: acute kidney injury - Problems (1) Chronic kidney disease, stage IV (severe) Current Visit: Yes Status: Acute (2) Acute pyelonephritis Current Visit: Yes Status: Acute (3) Hypertension Current Visit: Yes Status: Acute Brief History of Present Illness: 62 year old female with past medical history of HTN, HLD, CHF, DM, CKD stage 4, hypothyroidism, MAX was transfer from [facility] for acute kidney injury. She originally presented to the emergency room for left flank pain. She reported left flank pain for 2 weeks that was not resolving. She reported associated nausea, abdominal tenderness. On ER evaluation, she was noted to have hypertensive urgency, UA suggested UTI, renal cyst, acute on chronic kidney injury, and hyperkalemia. She denied any loose stools, dysuria, vomiting, no fever, chills, cough or shortness of breath, chest pain. She denied previous VA, PCI, or stroke. Patient was hospitalized for further management. Hospital Course: Patient admitted to the medical floor and her left-sided flank pain with IV Rocephin for UTI. Patient's symptoms resolved. She had hyperkalemia which was managed with Kayexalate prior to admission. Patient at the moment denies any flank pain. CT abdomen and pelvis done shows bilateral multiple bilateral small low and intermediate density renal masses. Case discussed with Nephrology and outpatient follow-up recommended. Follow-up with urology as outpatient also recommended. Serum creatinine has improved to baseline. She has severely elevated blood pressure which has improved. Nephrology has adjusted her antihypertensives, hydralazine dose increased to 50 mg 3 times daily, instead of twice daily. Patient is clinically stable for discharge. Vital Signs/Physical Exam: Temp Pulse Resp BP Pulse Ox 96.5 F L 80 18 160/68 H 95 02/18/23 13:27 02/18/23 13:27 02/18/23 13:27 02/18/23 13:27 02/18/23 13:27 General: Alert, In no apparent distress, Oriented x3 HEENT: Mucous membr. moist/pink Neck: JVD not distended Respiratory: Clear to auscultation bilaterally, Normal air movement Cardiovascular: No edema, Regular rate/rhythm, Normal S1 S2 Gastrointestinal: Normal bowel sounds, Soft and benign, Non-distended, No tenderness Musculoskeletal: No swelling Integumentary: No rashes Neurological: Normal strength at 5/5 x4 extr Laboratory Data at Discharge: WBC 8.70 thou/uL (4.3-10.9) 02/18/23 05:25 Hgb 11.1 g/dL (12.0-15.0) L 02/18/23 05:25 Hct 34.3 % (36.0-45.0) L 02/18/23 05:25 Plt Count 175 thou/uL (152-406) 02/18/23 05:25 Sodium 136 mEq/L (136-145) 02/18/23 05:25 Potassium 4.7 mEq/L (3.5-5.1) 02/18/23 05:25 BUN 62 mg/dL (7-18) H 02/18/23 05:25 Creatinine 2.51 mg/dL (0.55-1.02) H 02/18/23 05:25 Glucose 166 mg/dL (74-106) H 02/18/23 05:25 Magnesium 2.2 mg/dL (1.6-2.4) 02/18/23 05:25 Home Medications: Fluticasone/Umeclidin/Vilanter [Trelegy Ellipta 200-62.5-25] 1 puff IH DAILY 12/29/20 Rosuvastatin [Crestor*] 2 tab PO BEDTIME 12/29/20 Carvedilol [Coreg] 12.5 mg PO BID 01/26/21 Clonidine [Catapres-Tts 1] 0.2 mg TOP Q7D 12/27/22 Gabapentin 300 mg PO BID 12/27/22 Aspirin Chewable [Aspirin Chewable*] 81 mg PO DAILY tab.chew 12/30/22 Insulin 70/30 NPH/Reg Human [Novolin 70/30*] 10 unit SQ BIDAC #0 ml 12/30/22 Albuterol Inhaler [Ventolin Inhaler*] 2 puff IH Q6H PRN 02/17/23 Fluticasone Propion/Salmeterol [Fluticasone-Salmeterol 500-50] 02/17/23 Gabapentin 300 mg PO BID 02/17/23 Insulin Detemir [Levemir Flexpen] 20 unit SQ BEDTIME 02/17/23 Levothyroxine [Synthroid*] 125 mcg PO [id number] 02/17/23 Montelukast [Singulair*] 10 mg PO DAILY 02/17/23 carvediloL [Carvedilol] 12.5 mg PO BID 02/17/23 Cefpodoxime Proxetil 100 mg PO BID #14 tab 02/18/23 Hydralazine HCl 50 mg PO TID #90 tab 02/18/23 New Medications: Cefpodoxime Proxetil 100 mg PO BID #14 tab Hydralazine HCl 50 mg PO TID #90 tab Diet: ADA Activity: Ad itz Followup: Aleksandr Silva DO [ACTIVE - CAN ADMIT] - 1-2 Weeks Popeye Granados MD [ACTIVE - CAN ADMIT] - 1-2 Weeks Garcia Tello [ACTIVE - CAN ADMIT] - (renal cysts/masses) Time spent managing pt's care (in minutes): 33
[2023-02-18] MEDS ORDERED: CEFTRIAXONE 1,000 MG in NA CHLORIDE 0.9% 50 ML IVPB SCH ×4 (18:00)
[2023-02-18] MEDS ORDERED: ROSUVASTATIN 10 MG TAB PO SCH (21:00)
[2023-02-18] MEDS ORDERED: BUMETANIDE 1 MG TABLET PO SCH (21:00)
[2023-02-18] MEDS ORDERED: INSULIN GLARGINE 100 UNIT/ML SQ SCH (21:00)
== END 2023-02-18 18:05 | disposition home or self-care (01) ==
LOC: 2ND 21:34 → INTOOBSV 21:34
PROVIDERS: ADMIT Hospitalist; ATTEND Internal Medicine
DX: N18.4 Chronic kidney disease, stage 4 (severe) (principal); N10 Acute pyelonephritis; E11.22 Type 2 diabetes mellitus with diabetic chronic kidney disease; I13.0 Hypertensive heart and chronic kidney disease with heart failure and stage 1 through stage 4 chronic kidney disease, or unspecified chronic kidney disease; I50.9 Heart failure, unspecified; N39.0 Urinary tract infection, site not specified; I16.0 Hypertensive urgency; E11.40 Type 2 diabetes mellitus with diabetic neuropathy, unspecified; E03.9 Hypothyroidism, unspecified; F32.A Depression, unspecified; N28.1 Cyst of kidney, acquired; E87.5 Hyperkalemia; G47.33 Obstructive sleep apnea (adult) (pediatric)
CPT/HCPCS: 85025; 80048; 36415; 83735; 82947 ×4; 74176; 94640; J1644; J0360 ×2; J7613; J2405; J7040; J0696; G0379; G0378 ×2

== ENCOUNTER 2023-02-22 16:12 | Inpatient (IN) | payer OTHER ==
--- OUTSIDE RECORDS SUMMARY | 2023-02-22 16:42 | XMS REPORT | Continuity of Care Document ---
:1960 Author Organization [facility] t Address [address] [place] [address] Care Team Providers Name Role Phone Popeye Granados MD Primary Care Physician MIGUEL LARA Attending Clinician Unavailable HARVEY NAVARRO Attending Clinician Unavailable JACK CRAIN Attending Clinician Unavailable POLA MCMAHON Attending Clinician Unavailable HECTOR FLORES Attending Clinician Unavailable LAB90 Attending Clinician Unavailable KD KING Attending Clinician Unavailable LAB47 Attending Clinician Unavailable ROBERTO MALIK Attending Clinician Unavailable LEIGHTON LUDWIG Attending Clinician Unavailable KAYLIE AZUL Attending Clinician Unavailable TAHMINA AZUL Attending Clinician Unavailable ANU_EVELIN Attending Clinician Unavailable FB, TECH 1 Attending Clinician Unavailable JEAN CARLOS SAMUEL Attending Clinician Unavailable MYKELSEYONLINE, MD Attending Clinician Unavailable SYLVIA NAVARRO Attending Clinician Unavailable [email or web address] Attending Clinician Unavailable Doctor Unassigned, [place] Attending Clinician Unavailable ENRIKE MONAHAN Attending Clinician [...] Type Policy Number Effective Date [facility] Date [id number] 2020 CHOICE 00:00:00 AETNA [facility] 9 [id number] 2022 BRON: O ON 00:00:00 FORMERLY [facility] [id number] CHOICE (HMO) AETNA - [facility] CHOICE [id number] 2012 (POS II) 00:00:00 Problems Condition Condition Condition Status Onset Resolution Last Treating Co mments Source Name Details Category Date Date Treatment Clinician Date Well adult Well adult Disease Active K elsey exam exam 12-18ybold 00:00: - 00 Externa l Immunodefi Immunodefi [...] goiter goiter 4-03 ity of 00:00: [place] [facility] Paresthesi Paresthes Problem Active 2019-01-25 [...] 2019-01-25 Memoria (finding) (finding) 11:26:00 l Active Bruce Problem 01/25/2019 [facility] Allergies, Adverse Reactions, [...] penicill Active Memori a ins ins l Portia Social History Social Habit Start Date Stop Date Quantity Comments Source Gender identity [facility] orientation [facility] Exposure to Not sure [facility] SARS-CoV-2 (event) [facility] Alcohol intake 2023-02-15 2023-02-15 Lifetime Chapis Vasquez bold - 00:00:00 00:00:00 non-drinker External (finding) Tobacco use and 2022-11-13 2022-11-13 Smokeless Chapis Cano ybold - exposure 00:00:00 00:00:00 tobacco non-user External History of Social 2022-11-13 2022-11-13 Chapis Barrientosold - function 00:00:00 00:00:00 External Sex [birth year] Chapis Cano ybold - 00:00:00 00:00:00 External Smoking Status Start Date Stop Date Source Tobacco smoking consumption Muna ey Seybold - External unknown [facility] Social History [facility] Medications Ordered Filled Start Stop Current Ordering Indication Dosage Frequency Signature Comments Components Source Medication Medication Date Date Medication? Clinician (SIG) Name Name Insulin 2022- No 30U Inject 30 Muna ey NPH, 02-13- units into Seybold Human,, 13:54: 00:00 the skin 2 - Isophane, 09 :00 times Externa 100 UNIT/ML daily l subcutaneou s Suspension INSULIN 2022- No Novolin R Muna ey ISOPHANE & 02-13 Regular Seybo ld REG MIX, 13:54: 00:00 U100 - HUMAN, 00 :00 Insulin Externa (NOVOLIN l MIX 70/30) (70-30) 100 UNIT/ML subcutaneou s Suspension Aspirin 81 Yes [id number] 81mg Take 1 Chapis MG oral - tablet (81 Seybol d Tablet 13:08: mg total) - Delayed 13 by mouth Externa Response daily l Fluticasone Yes Trelegy Dashawn sey -Umeclidin- 02-13 Ellipta Seybo ld Vilant 13:08: - (Trelegy 13 Externa Ellipta) l 100-62.5-25 MCG/ACT inhalation AEROSOL POWDER, BREATH ACTIVATED Albuterol Yes Ventolin Muna ey Sulfate - HFA Seybold (VENTOLIN 13:08: - HFA IN) 13 Externa l Insulin 2022- No Novolin R Muna ey Zinc Human 02-13 Regular Seybo ld (NOVOLIN L 13:07: 00:00 U-100 - SC) 36 :00 Insuln Externa l Insulin Yes [id number] Inject 45 K elsey Detemir 6-27 units [...] l subcutaneou s Suspension Aspirin 81 Yes [id number] 81mg Take 1 Chapis MG oral 6-22 tablet (81 Seybol d Tablet 09:53: mg total) - Delayed 30 by mouth Externa Response daily l Insulin Yes Novolin R Kelse y Zinc Human -22 Regular Seybol d (NOVOLIN L 09:53: U-100 - SC) 30 Insuln Externa l Fluticasone Yes Trelegy Dashawn sey -Umeclidin- 02-08 Ellipta Seybo ld Vilant 09:53: - (Trelegy 30 Externa Ellipta) l 100-62.5-25 MCG/ACT inhalation AEROSOL POWDER, BREATH ACTIVATED Albuterol Yes Ventolin Muna ey Sulfate 02-08 HFA Seybold (VENTOLIN 09:53: - HFA IN) 30 Externa l Ciclopirox Yes [id number] Apply to Chapis Olamine 6-22 all Seybold 0.77 % 00:00: affected - apply 00 toenails Externa externally daily l Cream Ammonium Yes [id number] Apply to Hcapis Lactate 6-22 bilateral Seybold (Lac-Hydrin 00:00: feet daily - ) 12 % 00 Externa apply l externally Cream Ciclopirox Yes [id number] Apply to Chapis Olamine 6-22 all Seybold 0.77 % 00:00: affected - apply 00 toenails Externa externally daily l Cream Ammonium Yes [id number] Apply to Chapis Lactate 6-22 bilateral Seybold (Lac-Hydrin 00:00: feet daily - ) 12 % 00 Externa apply l externally Cream Levothyroxi Yes [id number] 100ug Take 1 Chapis ne Sodium 6-12 tablet Seybold 100 MCG 00:00: (100 mcg - oral Tablet 00 total) by Ext courtney mouth l daily Levothyroxi Yes [id number] 88ug Take 1 Chapis ne Sodium 6-12 tablet (88 Seyb old 88 MCG oral 00:00: mcg total) - Tablet 00 by mouth Externa daily l Levothyroxi 2022-0 Yes [id number] 100ug Take 1 Chapis ne Sodium 6-12 tablet Seybold 100 MCG 00:00: (100 mcg - oral Tablet 00 total) by Ext courtney mouth l daily Levothyroxi 2022-0 Yes [id number] 88ug Take 1 Chapis ne Sodium 6-12 tablet (88 Seyb old 88 MCG oral 00:00: mcg total) - Tablet 00 by mouth Externa daily l Carvedilol 2022-0 Yes [id number] 25mg Take 1 K elsey 25 MG oral 6-08 tablet (25 Sey bold Tablet 00:00: mg total) - 00 by mouth 2 Externa times l daily Montelukast 2022-0 Yes [id number] 10mg QD Take 1 Chapis (SINGULAIR) 6-08 tablet (10 Se ybold 10 MG oral 00:00: mg total) - Tablet 00 by mouth Externa tablet nightly as l needed cloNIDine 2022-0 Yes [id number] 1{patch Apply 1 Chapis 0.2 MG/24HR 6-08 } patch Seybold transdermal 00:00: topically - PATCH 00 every 7 Externa WEEKLY days l Albuterol 2022-0 Yes [id number] .63mg Q.[id number] Take 3 mL Chapis Sulfate 6-08 [id number] (0.63 mg Se ybold 0.63 MG/3ML 00:00: 3D total) by - inhalation 00 nebulizati Ext courtney Inhalant on 3 times l Solution daily as needed for wheezing Carvedilol 2022-0 Yes [id number] 25mg Take 1 K elsey 25 MG oral 6-08 tablet (25 Sey bold Tablet 00:00: mg total) - 00 by mouth 2 Externa times l daily Montelukast 2022-0 Yes [id number] 10mg QD Take 1 Chapis (SINGULAIR) 6-08 tablet (10 Se ybold 10 MG oral 00:00: mg total) - Tablet 00 by mouth Externa tablet nightly as l needed cloNIDine 2022-0 Yes [id number] 1{patch Apply 1 Chapis 0.2 MG/24HR 6-08 } patch Seybold transdermal 00:00: topically - PATCH 00 every 7 Externa WEEKLY days l Albuterol 0 Yes [id number] .63mg Q.[id number] Take 3 mL Chapis Sulfate 6-08 [id number] (0.63 mg Se ybold 0.63 MG/3ML 00:00: 3D total) by - inhalation 00 nebulizati Ext courtney Inhalant on 3 times l Solution daily as needed for wheezing Carvedilol 0 Yes [id number] 25mg Take 1 K elsey 25 MG oral 6-08 tablet (25 Sey bold Tablet 00:00: mg total) - 00 by mouth 2 Externa times l daily Montelukast 0 Yes [id number] 10mg QD Take 1 Chapis (SINGULAIR) 6-08 tablet (10 Se ybold 10 MG oral 00:00: mg total) - Tablet 00 by mouth Externa tablet nightly as l needed cloNIDine 0 Yes [id number] 1{patch Apply 1 Chapis 0.2 MG/24HR 6-08 } patch Seybold transdermal 00:00: topically - PATCH 00 every 7 Externa WEEKLY days l Albuterol Yes [id number] .63mg Q.[id number] Take 3 mL Chapis Sulfate 6-08 [id number] (0.63 mg Se ybold 0.63 MG/3ML 00:00: 3D total) by - inhalation 00 nebulizati Ext courtney Inhalant on 3 times l Solution daily as needed for wheezing Valacyclovi 0 Yes [id number] 500mg Take 1 Chapis r HCl 6-01 tablet Seybold (Valtrex) 00:00: (500 mg - 500 MG oral 00 total) by Ext courtney Tablet mouth l daily Valacyclovi 2022-0 Yes [id number] 500mg Take 1 Chapis r HCl 6-01 tablet Seybold (Valtrex) 00:00: (500 mg - 500 MG oral 00 total) by Ext courtney Tablet mouth l daily Valacyclovi 2022-0 Yes [id number] 500mg Take 1 Chapis r HCl 6-01 tablet Seybold (Valtrex) 00:00: (500 mg - 500 MG oral 00 total) by Ext courtney Tablet mouth l daily Levothyroxi 2022-0 Yes [id number] 200ug Take 1 Chapis ne Sodium 5-21 tablet Seybold 200 MCG 00:00: (200 mcg - oral Tablet 00 total) by Ext courtney mouth l daily Insulin 2022-0 Yes 30U Inject 30 Kelse y NPH, 5-18 units into Seybold Human,, 08:10: the skin 2 - Isophane, 32 times Externa 100 UNIT/ML daily l subcutaneou s Suspension Aspirin 81 2022-0 Yes [id number] 81mg Take 1 Chapis MG oral 5-18 tablet (81 Seybol d Tablet 08:10: mg total) - Delayed 32 by mouth Externa Response daily l Insulin 2022-0 Yes 30U Inject 30 Kelse y NPH, 5-18 units into Seybold Human,, 08:10: the skin 2 - Isophane, 32 times Externa 100 UNIT/ML daily l subcutaneou s Suspension Aspirin 81 2022-0 Yes [id number] 81mg Take 1 Chapis MG oral 5-18 tablet (81 Seybol d Tablet 08:10: mg total) - Delayed 32 by mouth Externa Response daily l Mupirocin 2022-0 Yes [id number] Apply 1 Chapis (BACTROBAN) 5-18 applicatio Se ybold 2 % apply 00:00: n. - externally 00 topically Exte rna Ointment 2 times l daily Cephalexin 2022-0 Yes [id number] 250mg Take 1 Chapis (Keflex) 5-18 capsule Seybold 250 MG oral 00:00: (250 mg - Capsule 00 total) by Externa mouth 2 l times daily Mupirocin 3-0 Yes [id number] Apply 1 Chapis (BACTROBAN) 5-18 applicatio Se ybold 2 % apply 00:00: n. - externally 00 topically Exte rna Ointment 2 times l daily Mupirocin 2023-0 Yes [id number] Apply 1 Chapis (BACTROBAN) 5-18 applicatio Se ybold 2 % apply 00:00: n. - externally 00 topically Exte rna Ointment 2 times l daily Mupirocin 3-0 Yes [id number] Apply 1 Chapis (BACTROBAN) 5-18 applicatio Se ybold 2 % apply 00:00: n. - externally 00 topically Exte rna Ointment 2 times l daily Cephalexin 2022-0 2023- No [id number] 250mg Take 1 Chapis (Keflex) 5-18 06-08 capsule Seybold 250 MG oral 00:00: 00:00 (250 mg - Capsule 00 :00 total) by Externa mouth 2 l times daily metOLazone 2022-0 Yes 2.5mg Take 1 Muna ey 2.5 MG oral 5-13 tablet Seybol d Tablet 00:00: (2.5 mg - tablet 00 total) by Externa mouth l every 48 hours metOLazone 2022-0 Yes 2.5mg Take 1 Muna ey 2.5 MG oral 5-13 tablet Seybol d Tablet 00:00: (2.5 mg - tablet 00 total) by Externa mouth l every 48 hours metOLazone 2022-0 Yes 2.5mg Take 1 Muna ey 2.5 MG oral 5-13 tablet Seybol d Tablet 00:00: (2.5 mg - tablet 00 total) by Externa mouth l every 48 hours metOLazone 2022-0 Yes 2.5mg Take 1 Muna ey 2.5 MG oral 5-13 tablet Seybol d Tablet 00:00: (2.5 mg - tablet 00 total) by Externa mouth l every 48 hours Insulin 2022-0 Yes 30U Inject 30 Kelse y NPH, 5-01 units into Seybold Human,, 13:42: the skin 2 - Isophane, 12 times Externa 100 UNIT/ML daily l subcutaneou s Suspension Aspirin 81 2022-0 Yes [id number] 81mg Take 1 Chapis MG oral 5-01 tablet (81 Seybol d Tablet 13:42: mg total) - Delayed 12 by mouth Externa Response daily l Insulin 2022-0 Yes 30U Inject 30 Kelse y NPH, 5-01 units into Seybold Human,, 13:42: the skin 2 - Isophane, 12 times Externa 100 UNIT/ML daily l subcutaneou s Suspension Aspirin 81 2022-0 Yes [id number] 81mg Take 1 Chapis MG oral 5-01 tablet (81 Seybol d Tablet 13:42: mg total) - Delayed 12 by mouth Externa Response daily l Bumetanide 2022-0 Yes [id number] 1mg Take 1 K elsey 1 MG oral 5-01 tablet (1 Seybo ld Tablet 00:00: mg total) - 00 by mouth 2 Externa times l daily Bumetanide 2023-0 Yes [id number] 1mg Take 1 K elsey 1 MG oral 5-01 tablet (1 Seybo ld Tablet 00:00: mg total) - 00 by mouth 2 Externa times l daily Bumetanide 2023-0 Yes [id number] 1mg Take 1 K elsey 1 MG oral 5-01 tablet (1 Seybo ld Tablet 00:00: mg total) - 00 by mouth 2 Externa times l daily Bumetanide 3-0 Yes [id number] 1mg Take 1 K elsey 1 MG oral 5-01 tablet (1 Seybo ld Tablet 00:00: mg total) - 00 by mouth 2 Externa times l daily Bumetanide 3-0 Yes [id number] 1mg Take 1 K elsey 1 MG oral 5-01 tablet (1 Seybo ld Tablet 00:00: mg total) - 00 by mouth 2 Externa times l daily Bumetanide 3-0 Yes [id number] 1mg Take 1 K elsey 1 MG oral 5-01 tablet (1 Seybo ld Tablet 00:00: mg total) - 00 by mouth 2 Externa times l daily Gabapentin 2023-0 Yes [id number] 300mg Take 1 Chapis 300 MG oral 4-24 capsule Seybo ld Capsule 00:00: (300 mg - 00 total) by Externa mouth 2 l times daily Gabapentin 2023-0 Yes [id number] 300mg Take 1 Chapis 300 MG oral 4-24 capsule Seybo ld Capsule 00:00: (300 mg - 00 total) by Externa mouth 2 l times daily Gabapentin 2023-0 Yes [id number] 300mg Take 1 Chapis 300 MG oral 4-24 capsule Seybo ld Capsule 00:00: (300 mg - 00 total) by Externa mouth 2 l times daily Gabapentin 2023-0 Yes [id number] 300mg Take 1 Chapis 300 MG oral 4-24 capsule Seybo ld Capsule 00:00: (300 mg - 00 total) by Externa mouth 2 l times daily Gabapentin 2023-0 Yes [id number] 300mg Take 1 Chapis 300 MG oral 4-24 capsule Seybo ld Capsule 00:00: (300 mg - 00 total) by Externa mouth 2 l times daily Gabapentin Yes [id number] 300mg Take 1 Chapis 300 MG oral 4-24 capsule Seybo ld Capsule 00:00: (300 mg - 00 total) by Externa mouth 2 l times daily Fluticasone 0 2023- No INHALE 1 K elsejose -Umeclidin- 4-18 04-18 PUFF ONCE Se ybold Vilant 13:59: 00:00 DAILY FOR - (Trelegy 36 :00 30 DAYS Externa Ellipta) l 200-62.5-25 MCG/ACT inhalation AEROSOL POWDER, BREATH ACTIVATED Insulin Yes 30U Inject 30 Kelse y NPH, 4-18 units into Seybold Human,, 13:38: the skin 2 - Isophane, 11 times Externa 100 UNIT/ML daily l subcutaneou s Suspension Aspirin 81 Yes [id number] 81mg Take 1 Chapis MG oral 4-18 [...] MCG/ACT inhalation AEROSOL POWDER, BREATH ACTIVATED Fluticasone 2023-0 Yes 1{puff} Inhale 1 Chapis -Salmeterol 4-18 puff into Christina bold (Advair 00:00: the lungs - Diskus) 00 2 times Externa 500-50 daily l MCG/ACT inhalation AEROSOL POWDER, BREATH ACTIVATED Fluticasone 2022-0 Yes 1{puff} Inhale 1 Chapis -Salmeterol 4-18 puff into Christina bold (Advair 00:00: the lungs - Diskus) 00 2 times Externa 500-50 daily l MCG/ACT inhalation AEROSOL POWDER, BREATH ACTIVATED Fluticasone 2022-0 Yes 1{puff} Inhale 1 Chapis -Salmeterol 4-18 puff into Christina bold (Advair 00:00: the lungs - Diskus) [...] mouth Externa daily l Gabapentin, 2022-0 Yes [id number] 1{tbl} Take 1 Chapis Once-Daily, 4-03 tablet by y bold (Gralise) 00:00: mouth - 300 MG oral 00 daily Externa Tablet l Bumetanide 2022-0 2023- No 1mg Take 1 Muna ey 1 MG oral 4-03 05-01 tablet (1 Seyb old Tablet 00:00: 00:00 mg total) - 00 :00 by mouth Externa daily l Levothyroxi 2022-0 Yes [id number] 175ug Take 1 Chapis ne Sodium 3-28 tablet Seybold 175 MCG 00:00: (175 mcg - oral Tablet 00 total) by Ext courtney mouth l daily Rosuvastati 2022-0 Yes [id number] 20mg Take 1 Chapis n Calcium 3-28 3 tablet (20 Seyb old 20 MG oral 00:00: mg total) - Tablet 00 by mouth Externa daily l Levothyroxi 2022-0 Yes [id number] 175ug Take 1 Chapis ne Sodium 3-28 tablet Seybold 175 MCG 00:00: (175 mcg - oral Tablet 00 total) by Ext courtney mouth l daily Rosuvastati 2022-0 Yes [id number] 20mg Take 1 Chapis n Calcium 3-28 3 tablet (20 Seyb old 20 MG oral 00:00: mg total) - Tablet 00 by mouth Externa daily l Levothyroxi 2022-0 Yes [id number] 175ug Take 1 Chapis ne Sodium 3-28 tablet Seybold 175 MCG 00:00: (175 mcg - oral Tablet 00 total) by Ext courtney mouth l daily Rosuvastati 2022-0 Yes [id number] 20mg Take 1 Chapis n Calcium 3-28 3 tablet (20 Seyb old 20 MG oral 00:00: mg total) - Tablet 00 by mouth Externa daily l Rosuvastati 2022-0 Yes [id number] 20mg Take 1 Chapis n Calcium 3-28 3 tablet (20 Seyb old 20 MG oral 00:00: mg total) - Tablet 00 by mouth Externa daily l Rosuvastati 2022-0 Yes [id number] 20mg Take 1 Chapis n Calcium 3-28 3 tablet (20 Seyb old 20 MG oral 00:00: mg total) - Tablet 00 by mouth Externa daily l Rosuvastati 2022-0 Yes [id number] 20mg Take 1 Chapis n Calcium 3-28 3 tablet (20 Seyb old 20 MG oral 00:00: mg total) - Tablet 00 by mouth Externa daily l Levothyroxi 2022-0 Yes [id number] 175ug Take 1 Chapis ne Sodium 3-28 tablet Seybold 175 MCG 00:00: (175 mcg - oral Tablet 00 total) by Ext courtney mouth l daily Rosuvastati 2022-0 Yes [id number] 20mg Take 1 Chapis n Calcium 3-28 3 tablet (20 Seyb old 20 MG oral 00:00: mg total) - Tablet 00 by mouth Externa daily l Irbesartan 2022-0 Yes [id number] 150mg Take 1 Chapis 150 MG oral 3-27 tablet Seybol d Tablet 00:00: (150 mg - 00 total) by Externa mouth l nightly hydrALAZINE 2022-0 Yes [id number] 50mg Take 1 Chapis HCl 50 MG 3-27 tablet (50 Seyb old oral Tablet 00:00: mg total) - 00 by mouth 3 Externa times l daily Irbesartan 2022-0 Yes [id number] 150mg Take 1 Chapis 150 MG oral 3-27 tablet Seybol d Tablet 00:00: (150 mg - 00 total) by Externa mouth l nightly hydrALAZINE 2022-0 Yes [id number] 50mg Take 1 Chapis HCl 50 MG 3-27 tablet (50 Seyb old oral Tablet 00:00: mg total) - 00 by mouth 3 Externa times l daily Irbesartan 2022-0 Yes [id number] 150mg Take 1 Chapis 150 MG oral 3-27 tablet Seybol d Tablet 00:00: (150 mg - 00 total) by Externa mouth l nightly hydrALAZINE 3-0 Yes [id number] 50mg Take 1 Chapis HCl 50 MG 3-27 tablet (50 Seyb old oral Tablet 00:00: mg total) - 00 by mouth 3 Externa times l daily Irbesartan 2022-0 Yes [id number] 150mg Take 1 Chapis 150 MG oral 3-27 tablet Seybol d Tablet 00:00: (150 mg - 00 total) by Externa mouth l nightly hydrALAZINE 3-0 Yes [id number] 50mg Take 1 Chapis HCl 50 MG 3-27 tablet (50 Seyb old oral Tablet 00:00: mg total) - 00 by mouth 3 Externa times l daily Irbesartan 2023-0 Yes [id number] 150mg Take 1 Chapis 150 MG oral 3-27 tablet Seybol d Tablet 00:00: (150 mg - 00 total) by Externa mouth l nightly hydrALAZINE 0 Yes [id number] 50mg Take 1 Chapis HCl 50 MG 3-27 tablet (50 Seyb old oral Tablet 00:00: mg total) - 00 by mouth 3 Externa times l daily Irbesartan 0 Yes [id number] 150mg Take 1 Chapis 150 MG oral 3-27 tablet Seybol d Tablet 00:00: (150 mg - 00 total) by Externa mouth l nightly hydrALAZINE 0 Yes [id number] 50mg Take 1 Chapis HCl 50 MG 3-27 tablet (50 Seyb old oral Tablet 00:00: mg total) - 00 by mouth 3 Externa times l daily Irbesartan Yes [id number] 150mg Take 1 Chapis 150 MG oral 3-27 tablet Seybol d Tablet 00:00: (150 mg - 00 total) by Externa mouth l nightly hydrALAZINE 0 Yes [id number] 50mg Take 1 Chapis HCl 50 MG 3-27 tablet (50 Seyb old oral Tablet 00:00: mg total) - 00 by mouth 3 Externa times l daily Gabapentin, 2022- No 3{tbl} Take 3 K elsey Once-Daily, 3-13 03-13 tablets by Yoshi mayorga ([facility]) 14:05: 00:00 mouth as - 300 MG oral 49 :00 needed [employer] a Tablet l Bumetanide Yes 1mg Take [...] inhalation AEROSOL POWDER, BREATH ACTIVATED Spironolact Yes [id number] 25mg Take 1 Chapis one 25 MG 3-13 tablet (25 Seyb old oral Tablet 00:00: mg total) - 00 by mouth 2 Externa times l daily Montelukast 2022-0 Yes [id number] 10mg Take 1 Chapis (SINGULAIR) 3-13 tablet (10 Se ybold 10 MG oral 00:00: mg total) - Tablet 00 by mouth Externa tablet nightly l cloNIDine 2023-0 Yes [id number] 1{patch Apply 1 Chapis 0.2 MG/24HR 3-13 } patch Seybold transdermal 00:00: topically - PATCH 00 every 7 Externa WEEKLY days l Spironolact 2023-0 Yes [id number] 25mg Take 1 Chapis one 25 MG 3-13 tablet (25 Seyb old oral Tablet 00:00: mg total) - 00 by mouth 2 Externa times l daily Montelukast 2022-0 Yes [id number] 10mg Take 1 Chapis (SINGULAIR) 3-13 tablet (10 Se ybold 10 MG oral 00:00: mg total) - Tablet 00 by mouth Externa tablet nightly l cloNIDine 3-0 Yes [id number] 1{patch Apply 1 Chapis 0.2 MG/24HR 3-13 } patch Seybold transdermal 00:00: topically - PATCH 00 every 7 Externa WEEKLY days l Spironolact 3-0 Yes [id number] 25mg Take 1 Chapis one 25 MG 3-13 tablet (25 Seyb old oral Tablet 00:00: mg total) - 00 by mouth 2 Externa times l daily Montelukast 3-0 Yes [id number] 10mg Take 1 Chapis (SINGULAIR) 3-13 tablet (10 Se ybold 10 MG oral 00:00: mg total) - Tablet 00 by mouth Externa tablet nightly l cloNIDine 2023-0 Yes [id number] 1{patch Apply 1 Chapis 0.2 MG/24HR 3-13 } patch Seybold transdermal 00:00: topically - PATCH 00 every 7 Externa WEEKLY days l Spironolact 2023-0 Yes [id number] 25mg Take 1 Chapis one 25 MG 3-13 tablet (25 Seyb old oral Tablet 00:00: mg total) - 00 by mouth 2 Externa times l daily Spironolact 2023-0 Yes [id number] 25mg Take 1 Chapis one 25 MG 3-13 tablet (25 Seyb old oral Tablet 00:00: mg total) - 00 by mouth 2 Externa times l daily Spironolact 2022-0 Yes [id number] 25mg Take 1 Chapis one 25 MG 3-13 tablet (25 Seyb old oral Tablet 00:00: mg total) - 00 by mouth 2 Externa times l daily Spironolact 2022-0 Yes [id number] 25mg Take 1 Chapis one 25 MG 3-13 tablet (25 Seyb old oral Tablet 00:00: mg total) - 00 by mouth 2 Externa times l daily Montelukast 2022-0 Yes [id number] 10mg Take 1 Chapis (SINGULAIR) 3-13 tablet (10 Se ybold 10 MG oral 00:00: mg total) - Tablet 00 by mouth Externa tablet nightly l Gabapentin, 2022-0 Yes [id number] 1{tbl} Take 1 Chapis Once-Daily, 3-13 tablet by Christina johnson (Gralise) 00:00: mouth - 300 MG oral 00 daily Externa Tablet l cloNIDine 2022-0 Yes [id number] 1{patch Apply 1 Chapis 0.2 MG/24HR 3-13 } patch Seybold transdermal 00:00: topically - PATCH 00 every 7 Externa WEEKLY days l Spironolact 2022-0 Yes [id number] 25mg Take 1 Chapis one 25 MG 3-13 tablet (25 Seyb old oral Tablet 00:00: mg total) - 00 by mouth 2 Externa times l daily Montelukast 2022-0 Yes [id number] 10mg Take 1 Chapis (SINGULAIR) 3-13 tablet (10 Se ybold 10 MG oral 00:00: mg total) - Tablet 00 by mouth Externa tablet nightly l cloNIDine 2022-0 Yes [id number] 1{patch Apply 1 Chapis 0.2 MG/24HR 3-13 } patch Seybold transdermal 00:00: topically - PATCH 00 every 7 Externa WEEKLY days l Montelukast 2023-0 2023- No [id number] 10mg Take 1 Chapis (SINGULAIR) 3-13 06-08 tablet (10 S eybold 10 MG oral 00:00: 00:00 mg total) - Tablet 00 :00 by mouth Externa tablet nightly l cloNIDine 2023-0 2023- No [id number] 1{patch Apply 1 Chapis 0.2 MG/24HR 3-13 06-08 } patch Seybol d transdermal 00:00: 00:00 topically - PATCH 00 :00 every 7 Externa WEEKLY days l Carvedilol 3-0 Yes 12.5mg Take 1 Dashawn sey 12.5 [...] - 00 times Externa daily l Carvedilol 2022-0 Yes 12.5mg Take 1 Dashawn sey 12.5 MG 1-31 tablet Seybold oral Tablet 00:00: (12.5 mg - 00 total) by Externa mouth 2 l times daily Carvedilol 3-0 2023- No 12.5mg Take 1 Ke lsey 12.5 MG 1-31 -08 tablet Seybold oral Tablet 00:00: 00:00 (12.5 mg - 00 :00 total) by Externa mouth 2 l times daily cloNIDine 2023-0 2023- No PLACE 0.2 Ke lsey 0.2 MG/24HR 1-23 03-13 MG (1 Seybol d transdermal 00:00: 00:00 PATCH) - PATCH 00 :00 TOPICALLY Externa WEEKLY ONCE l WEEKLY Irbesartan- 3-0 2024- No 1{tbl} Take 1 K elsey hydroCHLORO [...] Ke lsey ne Sodium 0-13 tablet by ybo ld 150 MCG 00:00: mouth - oral [...] 2-19 mL/hr, ity of infusion 05:45: Intravenou [place] as 1,000 mL 00 s, Medical CONTINUOUS Branch , Starting Zo 10/07/20 at 2345, Until Discontinu ed, Routine proMETHazin 2020- No 25mg 25 mg, IV Univers e 10-08 Piggyback, ity of (PHENERGAN) 04:30: 04:30 [place] mg in 00 :00 dose, Zo Medica l NaCl 0.9% 10/07/20 at [facility] ch (NS) 50 mL 2230, 50 [...] dose, Zo Medica l mL) 10/07/20 at [place] injection 2215, 120 mL Routine HYDROcodone 2020- [...] dose, Zo Med ical 1:1:1 10/07/20 at [place] (FIRST-MOUT 0330, HWASH BLM) Routine oral suspension 15 mL INSULIN Yes 42U inject 42 Unive rs NPL/INSULIN 2-18 Units ity of LISPRO 07:01: under the [place] (HUMALOG 41 skin 2 Medical MIX 75-25 (two) Branch [place]) times daily with meals. metFORMIN Yes 1000mg Take 1,000 Univers (GLUCOPHAGE 2-18 mg by ity of ) 500 mg 07:01: mouth 2 [place] tablet 41 (two) Medical times Branch daily with meals. ALBUTEROL Yes Inhale. Unive rs SULFATE 2-18 ity of (PROAIR HFA 07:01: [place] INHALE) 41 Medical Branch amlodipine- Yes 1{capsu Take 1 Cap Univers benazepril 2-18 le} by mouth 2 ity of (LOTREL) 07:01: (two) [place] 5-20 mg per 41 times Medical capsule daily. Branch spironolact Yes 25mg Take 25 mg Univers one 2-18 by mouth ity of (SPIRONOLAC 07:01: [facility]. [facility] 25 mg 41 Medical tablet Branch chlorthalid Yes 25mg Take 25 mg Univers one 2-18 by mouth ity of (HYGROTON) 07:01: daily. [place] 25 mg 41 Medical tablet Branch aspirin Yes 81mg Take 81 mg Univ ers (ADULT 2-18 by mouth ity of ASPIRIN 07:01: daily. [place] REGIMEN) 81 41 Medical mg EC Branch tablet escitalopra Yes 10mg Take 10 mg Univers m oxalate 2-18 by mouth ity of 10 mg 07:01: daily. [place] tablet 41 Medical Branch Fluticasone Yes 1{puff} Inhale 1 Univers -Salmeterol 2-18 Puff every it y of 100-50 07:01: 12 [place] mcg/dose 41 (twelve) Medical inhalation hours. Branch disk furosemide Yes 20mg Take 20 mg U nivers 20 mg 2-18 by mouth ity of tablet 07:01: daily. [place] [address] Medical Branch gabapentin Yes Take by Univ ers ER 300 mg 2-18 mouth ity of tablet, 07:01: daily. [place] extended 41 Medical release 24 Branch hr losartan 50 Yes 50mg Take 50 mg Univers mg tablet 2-18 by mouth ity of 07:01: daily. [address] Branch KCL 10 mEq Yes 8meq Take 8 mEq U nivers tablet 2-18 by mouth ity of 07:01: daily. [place] [address] Medical Branch spironolact Yes 1{tbl} Take 1 [...] SULFATE 2-18 ity of (PROAIR HFA 07:01: [place] INHALE) 41 Medical Branch amlodipine- Yes 1{capsu Take 1 Cap Univers benazepril 2-18 le} by mouth 2 ity of (LOTREL) 07:01: (two) [place] 5-20 mg per 41 times Medical capsule daily. Branch spironolact Yes 25mg Take 25 mg Univers one 2-18 by mouth ity of (SPIRONOLAC 07:01: daily. [facility] s TONE) 25 mg 41 Medical tablet Branch chlorthalid Yes 25mg Take 25 mg Univers one 2-18 by mouth ity of (HYGROTON) 07:01: daily. [place] 25 mg 41 Medical tablet Branch aspirin Yes 81mg Take 81 mg Univ ers (ADULT 2-18 by mouth ity of ASPIRIN 07:01: daily. [place] REGIMEN) 81 41 Medical mg EC Branch tablet escitalopra Yes 10mg Take 10 mg Univers m oxalate 2-18 by mouth ity of 10 mg 07:01: daily. [place] tablet 41 Medical Branch Fluticasone Yes 1{puff} Inhale 1 Univers -Salmeterol 2-18 Puff every it y of 100-50 07:01: 12 [place] mcg/dose 41 (twelve) Medical inhalation hours. Branch disk furosemide Yes 20mg Take 20 mg U nivers 20 mg 2-18 by mouth ity of tablet 07:01: daily. [place] 41 Medical Branch gabapentin Yes Take by Univ ers ER 300 mg 2-18 mouth ity of tablet, 07:01: daily. [place] extended 41 Medical release 24 Branch hr losartan 50 Yes 50mg Take 50 mg Univers mg tablet 2-18 by mouth ity of 07:01: daily. [place] [address] Medical Branch KCL 10 mEq Yes 8meq Take 8 mEq U nivers tablet 2-18 by mouth ity of 07:01: daily. [place] [address] Medical Branch spironolact Yes 1{tbl} Take 1 [...] SULFATE 2-18 ity of (PROAIR HFA 07:01: [place] INHALE) 41 Medical Branch amlodipine- Yes 1{capsu [...] by mouth ity of (HYGROTON) 07:01: daily. [place] 25 mg 41 Medical tablet Branch aspirin [...] every it y of 100-50 07:01: 12 [place] mcg/dose 41 (twelve) Medical inhalation hours. Branch disk furosemide Yes 20mg Take 20 mg U nivers 20 mg 2-18 by mouth ity of tablet 07:01: daily. [place] [address] Medical Branch gabapentin Yes Take by [facility] ers ER 300 mg 2-18 mouth ity of tablet, 07:01: daily. [place] extended Medical release 24 Branch hr losartan 50 Yes 50mg Take 50 mg Univers mg tablet 2-18 by mouth ity of 07:01: daily. [place] [address] Medical Branch KCL 10 mEq Yes 8meq Take 8 mEq U nivers tablet 2-18 by mouth ity of 07:01: daily. [place] [address] Medical Branch spironolact Yes 1{tbl} Take 1 Un mohamud one-hydroch 2-18 tablet by ity of lorothiazid 07:01: mouth [place] e 50-50 mg 41 daily. Medical per tablet Branch INSULIN Yes 42U inject 42 [facility] rs NPL/INSULIN 2-18 Units ity of LISPRO 01:01: under the [place] (HUMALOG 41 skin 2 Medical MIX 75-25 (two) Branch SC) times daily with meals. metFORMIN Yes 1000mg Take 1,000 Univers (GLUCOPHAGE 2-18 mg by ity of ) 500 mg 01:01: mouth 2 [place] tablet 41 (two) Medical times Branch daily with meals. ALBUTEROL Yes Inhale. [facility] rs SULFATE 2-18 ity of (PROAIR HFA 01:01: [place] INHALE) 41 Medical Branch amlodipine- Yes 1{capsu Take 1 Cap Univers benazepril 2-18 le} by mouth 2 ity of (LOTREL) 01:01: (two) [place] 5-20 mg per 41 times Medical capsule daily. Branch spironolact Yes 25mg Take 25 mg Univers one 2-18 by mouth ity of (SPIRONOLAC 01:01: daily. [place] TONE) 25 mg 41 Medical tablet Branch chlorthalid Yes 25mg Take 25 mg Univers one 2-18 by mouth ity of (HYGROTON) 01:01: daily. [place] 25 mg 41 Medical tablet Branch aspirin Yes 81mg Take 81 mg Univ ers (ADULT 2-18 by mouth ity of ASPIRIN 01:01: daily. [place] REGIMEN) 81 41 Medical mg EC Branch tablet escitalopra Yes 10mg Take 10 mg Univers m oxalate 2-18 by mouth ity of 10 mg 01:01: daily. [place] tablet 41 Medical Branch Fluticasone Yes 1{puff} Inhale 1 Univers -Salmeterol 2-18 Puff every it y of 100-50 01:01: 12 [place] mcg/dose 41 (twelve) Medical inhalation hours. Branch disk furosemide Yes 20mg Take 20 mg U nivers 20 mg 2-18 by mouth ity of tablet 01:01: daily. [place] [address] Medical Branch gabapentin Yes Take by [facility] ers ER 300 mg 2-18 mouth ity of tablet, 01:01: daily. [place] extended 41 Medical release 24 Branch hr losartan 50 Yes 50mg Take 50 mg Univers mg tablet 2-18 by mouth ity of 01:01: daily. [place] [address] Medical Branch KCL 10 mEq Yes 8meq Take 8 mEq U nivers tablet 2-18 by mouth ity of 01:01: daily. [place] [address] Medical Branch spironolact Yes 1{tbl} Take 1 Un mohamdu one-hydroch 2-18 tablet by ity of lorothiazid 01:01: mouth [place] e 50-50 mg 41 daily. Medical per tablet Branch pantoprazol Yes [id number] 40mg Take 1 Univers e 2-18 tablet by ity of (PROTONIX) 00:00: mouth [place] 40 mg EC 00 daily. Medical tablet Branch dicyclomine Yes [id number] 20mg Take 1 Univers 20 mg 2-18 tablet by ity of tablet 00:00: mouth [place] 00 every 6 Medical (six) Branch hours as needed for Abdominal pain. pantoprazol Yes [id number] 40mg Take 1 Univers e 2-18 tablet by ity of (PROTONIX) 00:00: mouth [place] 40 mg EC 00 daily. Medical tablet Branch dicyclomine Yes [id number] 20mg Take 1 Univers 20 mg 2-18 tablet by ity of tablet 00:00: mouth [place] 00 every 6 Medical (six) Branch hours as needed for Abdominal pain. pantoprazol Yes [id number] 40mg Take 1 Univers e 2-18 tablet by ity of (PROTONIX) 00:00: mouth [place] 40 mg EC 00 daily. Medical tablet Branch dicyclomine Yes [id number] 20mg Take 1 Univers 20 mg 2-18 tablet by ity of tablet 00:00: mouth [place] 00 every 6 Medical (six) Branch hours as needed for Abdominal pain. escitalopra Yes 10mg Take 10 mg Univers m oxalate 2-11 by mouth ity of 10 mg 14:26: daily. [place] tablet 58 Medical Branch Fluticasone Yes 1{puff} Inhale 1 Univers -Salmeterol 2-11 Puff every it y of 100-50 14:26: 12 [place] mcg/dose 58 (twelve) Medical inhalation hours. Branch disk furosemide Yes 20mg Take 20 mg U nivers 20 mg 2-11 by mouth ity of tablet 14:26: daily. [place] [address] Medical Branch gabapentin Yes Take by Univ ers ER 300 mg 2-11 mouth ity of tablet, 14:26: daily. [place] extended Medical release 24 Branch hr losartan 50 Yes 50mg Take 50 mg Univers mg tablet 2-11 by mouth ity of 14:26: daily. [place] [address] Medical Branch KCL 10 mEq Yes 8meq Take 8 mEq U nivers tablet 2-11 by mouth ity of 14:26: daily. [place] [address] Medical Branch spironolact Yes 1{tbl} Take 1 Un mohamud one-hydroch 2-11 tablet by ity of lorothiazid 14:26: mouth [place] e 50-50 mg 58 daily. Medical per tablet Branch aspirin Yes 81mg Take 81 mg Univ ers (ADULT 2-11 by mouth ity of ASPIRIN 14:26: daily. [place] REGIMEN) 81 58 Medical mg EC Branch tablet escitalopra Yes 10mg Take 10 mg Univers m oxalate 2-11 by mouth ity of 10 mg 14:26: daily. [place] tablet 58 Medical Branch Fluticasone Yes 1{puff} Inhale 1 Univers -Salmeterol 2-11 Puff every it y of 100-50 14:26: 12 [place] mcg/dose 58 (twelve) Medical inhalation hours. Branch disk furosemide Yes 20mg Take 20 mg U nivers 20 mg 2-11 by mouth ity of tablet 14:26: daily. [place] [address] Medical Branch gabapentin Yes Take by Univ ers ER 300 mg 2-11 mouth ity of tablet, 14:26: daily. [place] extended Medical release 24 Branch hr losartan 50 Yes 50mg Take 50 mg Univers mg tablet 2-11 by mouth ity of 14:26: daily. [place] [address] Medical Branch KCL 10 mEq Yes 8meq Take 8 mEq U nivers tablet 2-11 by mouth ity of 14:26: daily. [place] [address] Medical Branch spironolact Yes 1{tbl} Take 1 [...] 14:19: Zo [place] (MAXITROL) 00 09/30/20 at [facility] ical 3.[address] [place] [address] mg/g-10,000 Until unit/g-0.1 Discontinu % ed, ophthalmic Routine, ointment Intra-op tetracaine Yes PRN, Univers (PONTOCAINE 2-11 Starting ity of ) 0.5 % 14:19: Zo [place] ophthalmic 00 09/30/20 at Med ical drops 0819, [place] Until Discontinu ed, Routine, Intra-op water for Yes PRN, Univers irrigation 2-11 Starting ity o f irrigation 14:18: Zo [place] solution 09/30/20 at Medic al [address] [place] [address] Until Discontinu ed, Routine, Intra-op gentamicin Yes PRN, Univers injection 2-11 Starting ity of 14:18: Zo [place] 00 09/30/20 at [facility] [address] [place] [address] Until Discontinu ed, ASHLEY, Intra-op EPINEPHrine Yes PRN, Univer s (PF) 2-11 Starting ity of 1:1,000 (1 14:17: Zo [place] mg/mL) 00 09/30/20 at [facility] (ADRENALIN 0817, [place] (PF)) Until injection Discontinu ed, Routine, Intra-op DUOVISC Yes PRN, Univers (DUOVISC 09-30 Starting ity of VISCO 14:17: Zo [place] ELASTIC) 3 00 09/30/20 at [facility] ical %-4 %(0.5 0817, [place] mL) 1 % Until (0.55 mL) Discontinu intraocular ed, injection Routine, Intra-op dexamethaso Yes PRN, Univer s ne 09-30 Starting ity of (DECADRON 14:08: Zo [place] PHOSPHATE) 00 09/30/20 at [facility] ical injection 0808, [place] Until Discontinu ed, Routine, Intra-op balanced Yes PRN, Univers salt soln 09-30 Starting ity of no.2 irrig. 14:07: Zo [place] (BSS) 00 09/30/20 at [facility] ophthalmic 0807, [place] solution Until Discontinu ed, Routine, Intra-op eye block Yes PRN, Univers syringe 11 09-30 Starting ity o f mL 14:00: Zo [place] 00 09/30/20 at [facility] 0800, [place] Until Discontinu ed, Intra-op propofoL IV 2020- No ONCE INTRA Univers infusion 09-30 PROCEDURE, ity of 13:58: 14:23 Starting [place] 00 :22 Zo [facility] 09/30/20 at [place] 0758, Until Zo 09/30/20 at 0823, Routine, Intra-op lidocaine 2020- No ONCE INTRA U nivers 1% 09-30 PROCEDURE, ity of (XYLOCAINE) 13:58: 14:23 Starting [place] 100 mg/10 00 :22 Zo [facility] mL (1 %) 09/30/20 at [facility] h injection 0758, Until Zo 09/30/20 at 0823, Routine, Intra-op albuterol 2020-0 2020- No ONCE INTRA U nivers (VENTOLIN) 09-30 PROCEDURE, it y of inhaler 13:56: 14:23 Starting [place] 00 :22 Zo [facility] 09/30/20 at Branch 0756, Until Zo 09/30/20 [...] 09/30/20 at 0715, Routine, DSU Pre-op metFORMIN 2020-0 Yes 1000mg Take 1,000 Univers (GLUCOPHAGE 2-11 mg by ity of ) 500 mg 13:01: mouth 2 [place] tablet 30 (two) Medical times Branch daily with meals. metFORMIN 2020-0 Yes 1000mg Take 1,000 Univers (GLUCOPHAGE 2-11 mg by ity of ) 500 mg 13:01: mouth 2 [place] tablet 30 (two) Medical times Branch daily with meals. metFORMIN 2020-0 Yes 1000mg Take 1,000 Univers (GLUCOPHAGE 2-09 mg by ity of ) 500 mg 19:58: mouth 2 [place] tablet 09 (two) Medical times Branch daily with meals. amlodipine- 2020-0 Yes 1{capsu Take 1 Cap Univers benazepril 2-09 le} by mouth 2 ity of (LOTREL) 19:58: (two) [place] 5-20 mg per 09 times Medical capsule daily. Branch losartan 50 Yes 50mg Take 50 mg Univers mg tablet 2-05 by mouth ity of 21:47: daily. [place] 58 Medical Branch KCL 10 mEq Yes 8meq Take 8 mEq U nivers tablet 2-05 by mouth ity of 21:47: daily. [place] 58 Medical Branch spironolact Yes 1{tbl} Take 1 Un mohamud one-hydroch 2-05 tablet by ity of lorothiazid 21:47: mouth [place] e 50-50 mg 58 daily. Medical per tablet Branch aspirin Yes 81mg Take 81 mg Univ ers (ADULT 2-05 by mouth ity of ASPIRIN 21:47: daily. [place] REGIMEN) 81 57 Medical mg EC Branch tablet escitalopra Yes 10mg Take 10 mg Univers m oxalate 2-05 by mouth ity of 10 mg 21:47: daily. [place] tablet 57 Medical Branch Fluticasone Yes 1{puff} Inhale 1 Univers -Salmeterol 2-05 Puff every it y of 100-50 21:47: 12 [place] mcg/dose 57 (twelve) Medical inhalation hours. Branch disk furosemide Yes 20mg Take 20 mg U nivers 20 mg 2-05 by mouth ity of tablet 21:47: daily. [place] [address] Medical Branch gabapentin Yes Take by Univ ers ER 300 mg 2-05 mouth ity of tablet, 21:47: daily. [place] extended 57 Medical release 24 Branch hr ALBUTEROL Yes Inhale. Unive rs SULFATE 3-11 ity of (PROAIR HFA 13:13: [place] INHALE) 00 Medical Branch desloratadi Yes 5mg Take 1 Tab Univers ne 3-11 by mouth ity of (CLARINEX 00:00: daily. [place] REDITAB) 5 00 Medical mg Branch disintegrat ing tablet desloratadi Yes 5mg Take 1 Tab Univers ne 3-11 by mouth ity of (CLARINEX 00:00: daily. [place] REDITAB) 5 00 Medical mg Branch disintegrat [...] Medical mg Branch disintegrat ing tablet montelukast Yes Univer s (SINGULAIR) 1-06 ity of 10 mg 00:00: [place] tablet 00 Medical [facility] 0 Yes Univer s (SINGULAIR) 1-06 ity of 10 mg 00:00: [place] tablet 00 Medical [facility] Univer s (SINGULAIR) 1-06 ity of 10 mg 00:00: [place] tablet 00 Medical [facility] 0 Yes Univer s (SINGULAIR) 1-06 ity of 10 mg 00:00: [place] tablet 00 Medical [facility] 0 Yes Univer s (SINGULAIR) 1-06 ity of 10 mg 00:00: [place] tablet 00 Medical [place] [facility] Yes Univer s (SINGULAIR) 1-06 ity of 10 mg 00:00: [place] tablet 00 Medical [facility] Yes Univer s (SINGULAIR) 1-06 ity [...] of UF 31 X 00:00: 01/02 " [place] Medical Branch BD INSULIN Yes Univers [...] as mL) needed for solution Pain. hydrocodone 2011-0 Yes 10mL Take 10-15 Univers -acetaminop 4-04 mL by itjose of hen 00:00: mouth [place] (LORTAB) 00 [...] Episcop drops,suspe drops,suspe drops,susp al nsion [facility] INSTILL 1 INSTILL 1 INSTILL 1 [...] al s pen s pen [facility] injector injector injector Out reac 0.5 ML [...] Name Name Tdap- (Boostrix, 2022-12-18 Completed Chapis romerobohima Adacel) 00:00:00 - External Tdap- (Boostrix, 2022-12-18 Completed Chapis Belle eybold Adacel) 00:00:00 - External Tdap- (Boostrix, 2022-12-18 Completed Chap[facility] Belle eybold Adacel) 00:00:00 - External Tdap- (Boostrix, 2022-12-18 Completed Chapis S eybold Adacel) 00:00:00 - External Tdap- (Boostrix, 2022-12-18 Completed [place] Belle eybold Adacel) 00:00:00 - External Tdap- (Boostrix, 2022-12-18 Completed Chap[facility] Belle eybold Adacel) 00:00:00 - External Influenza Virus [...] Systolic blood 2023-02-13 18:14:00 159 mm[Hg] Chapis Seybold - pressure External Diastolic blood 2023-02-13 18:14:00 79 mm[Hg] Darnell garcia Seybold - pressure External Heart rate 2023-02-13 18:14:00 55 /min Chapis Belle eybold - External Body temperature 2023-02-13 18:14:00 36.67 Mariaa Muna romero Seybold - External Respiratory rate 2023-02-13 18:14:00 18 /min Muna ey Seybold - External Body height 2023-02-13 18:14:00 157.5 cm Chapis Belle eybold - External Body weight 2023-02-13 18:14:00 122.925 kg Chapis Belle eybold - External BMI 2023-02-13 18:14:00 49.57 kg/m2 Chapis Belle eybold - External Systolic blood 2023-01-25 14:56:00 145 mm[Hg] Chapis Seybold - pressure External Diastolic blood 2023-01-25 14:56:00 87 mm[Hg] Darnell y Seybold - pressure External Heart rate 2023-01-25 14:56:00 62 /min Chapis Belle eybold - External Body temperature 2023-01-25 14:56:00 36.56 Mariaa Muna romero Seybold - External Respiratory rate 2023-01-25 14:56:00 15 /min Muna romero Seybold - External Body height 2023-01-25 14:56:00 [...] saturation in 2023-01-04 13:06:00 97 /min Chapis Ilianatavon - Arterial blood by External Pulse oximetry Systolic blood 2022-12-18 18:39:00 154 mm[Hg] Chapis Seybold - pressure External Diastolic blood 2022-12-18 18:39:00 82 mm[Hg] Dashawnse y Seybold - pressure External [...] saturation in 2022-12-18 18:39:00 95 /min Chapis Adryan - Arterial blood by External Pulse oximetry [...] saturation in 2022-12-05 18:38:00 98 /min Chapis Cornelius - Arterial blood by External Pulse oximetry Systolic blood 2022-10-30 18:34:00 152 mm[Hg] Chapis Canoybold - pressure External Diastolic blood 2022-10-30 18:34:00 86 mm[Hg] Darnell garcia Seybold - pressure External Heart rate 2022-10-30 18:34:00 63 /min Chapis romerobold - External Body temperature 2022-10-30 18:34:00 36.44 Mariaa Muna romero Seybold - External Respiratory rate 2022-10-30 18:34:00 14 /min Muna romero Seybold - External Body height 2022-10-30 18:34:00 157.5 cm Chapis romerobold - External Body weight 2022-10-30 18:34:00 126.1 kg Chapis romerobold - External BMI 2022-10-30 18:34:00 50.85 kg/m2 Chapis romerobohima - External Oxygen saturation in 2022-10-30 18:34:00 96 /min Chapis Canocorinetavon - Arterial blood by External Pulse oximetry BP Diastolic 2020-12-07 00:00:00 95 mm[Hg] [place] [facility] Height 2020-12-07 00:00:00 62 [in_i] [place] [facility] BMI (Body Mass 2020-12-07 00:00:00 53.4 kg/m2 [place] [facility] [employer] Index) [facility] BP Systolic 2020-12-07 00:00:00 169 mm[Hg] [place] [facility] Body Weight 2020-12-07 00:00:00 292 [lb_av] [place] [facility] Systolic blood 2020-10-08 09:00:00 184 mm[Hg] Aaliyah rowe of [facility] Diastolic blood 2020-10-08 09:00:00 68 mm[Hg] Alejandro rskatherine [facility] Heart rate 2020-10-08 09:00:00 73 /min [facility] Respiratory rate 2020-10-08 09:00:00 16 /min Univ [facility] [place] [facility] Oxygen saturation in 2020-10-08 09:00:00 97 /min University of Arterial blood by [place] [facility] [place] Pulse oximetry Branch Body temperature 2020-10-08 03:15:00 37.44 Mariaa [facility] [place] [facility] Body height 2020-10-08 03:15:00 160 cm [facility] [place] [facility] Body weight 2020-10-08 03:15:00 136.079 kg [facility] [place] [facility] BMI 2020-10-08 03:15:00 53.14 kg/m2 [facility] [place] [facility] Systolic blood 2020-10-08 09:00:00 184 mm[Hg] Univer sity of pressure [place] [facility] Diastolic blood 2020-10-08 09:00:00 68 mm[Hg] Unive rsity of pressure [place] [facility] Heart rate 2020-10-08 09:00:00 73 /min [facility] [place] [facility] Respiratory rate 2020-10-08 09:00:00 16 /min Univ [facility] [place] [facility] Oxygen saturation in 2020-10-08 09:00:00 97 /min University of Arterial blood by [place] [facility] [place] Pulse oximetry Branch Body temperature 2020-10-08 03:15:00 37.44 Mariaa [facility] [place] [facility] Body height 2020-10-08 03:15:00 160 cm [facility] [place] [facility] Body weight 2020-10-08 03:15:00 136.079 kg [facility] [place] [facility] BMI 2020-10-08 03:15:00 53.14 kg/m2 [facility] [place] [facility] Systolic blood 2020-10-07 11:00:00 198 mm[Hg] Univer sity of pressure [place] [facility] Diastolic blood 2020-10-07 11:00:00 89 mm[Hg] Unive rsity of pressure [place] [facility] Heart rate 2020-10-07 11:00:00 70 /min [facility] [place] [facility] Respiratory rate 2020-10-07 11:00:00 13 /min Univ [facility] [place] [facility] Oxygen saturation in 2020-10-07 11:00:00 99 /min University of Arterial blood by [place] [facility] Pulse oximetry Branch Body temperature 2020-10-07 06:50:00 37.39 Mariaa [facility] [place] [facility] Body weight 2020-10-07 06:50:00 136.079 kg [facility] [place] [facility] BMI 2020-10-07 06:50:00 54.87 kg/m2 [facility] [place] [facility] Systolic blood 2020-10-07 11:00:00 198 mm[Hg] Univer sity of pressure [place] [facility] Diastolic blood 2020-10-07 11:00:00 89 mm[Hg] Unive rsity of pressure [place] [facility] Heart rate 2020-10-07 11:00:00 70 /min [facility] [place] [facility] Respiratory rate 2020-10-07 11:00:00 13 /min Univ [facility] [place] [facility] Oxygen saturation in 2020-10-07 11:00:00 99 /min University of Arterial blood by [place] [facility] Pulse oximetry Branch Body temperature 2020-10-07 06:50:00 37.39 Mariaa [facility] [place] [facility] Body weight 2020-10-07 06:50:00 136.079 kg [facility] [place] [facility] BMI 2020-10-07 06:50:00 54.87 kg/m2 [facility] [place] [facility] Systolic blood 2020-09-30 14:45:00 225 mm[Hg] Univer sity of pressure [place] [facility] Diastolic blood 2020-09-30 14:45:00 97 mm[Hg] Unive rsity of pressure [place] [facility] Heart rate 2020-09-30 14:45:00 63 /min [facility] [place] [facility] Body temperature 2020-09-30 14:45:00 36.67 Mariaa [facility] [place] [facility] Respiratory rate 2020-09-30 14:45:00 18 /min [facility] [place] [facility] Oxygen saturation in 2020-09-30 14:45:00 97 /min University of Arterial blood by [place] [facility] Pulse oximetry Branch Body height 2020-09-28 19:45:00 157.5 cm [facility] [place] [facility] Body weight 2020-09-28 19:45:00 136.079 kg [facility] [place] [facility] BMI 2020-09-28 19:45:00 54.87 kg/m2 [facility] [place] [facility] Systolic blood 2020-09-30 14:45:00 225 mm[Hg] Univer sity of pressure [facility] Diastolic blood 2020-09-30 14:45:00 97 mm[Hg] Unive rsity of pressure [facility] Heart rate 2020-09-30 14:45:00 63 /min [facility] Body temperature 2020-09-30 14:45:00 36.67 Mariaa [facility] Respiratory rate 2020-09-30 14:45:00 18 /min [facility] Oxygen saturation in 2020-09-30 14:45:00 97 /min [facility] Arterial blood by [facility] Pulse oximetry [place] Body height 2020-09-28 19:45:00 157.5 cm [facility] Body weight 2020-09-28 19:45:00 136.079 kg [facility] BMI 2020-09-28 19:45:00 54.87 kg/m2 [facility] Respiratory rate 2020-09-30 14:21:00 25 /min [facility] Respiratory rate 2020-09-30 14:21:00 25 /min [facility] Procedures Procedure Date / Time Performing Source Performed Clinician REAGENT STRIP/BLOOD GLUCOSE 2023-02-13 Outside, Reported Jesse Cornelius - 00:00:00 External AUTHORIZATION FOR RELEASE OF 2022-10-03 Doctor Unassigned, [facility] PHI 06:01:00 [place] [facility] MAMMO, screening, digital, 2020-12-07 [place] [facility] bilateral 00:00:00 [facility] URINALYSIS 2020-10-08 [facility] [place] 06:13:[address] [facility] [address] ABDOMEN PELVIS W CONTRAST 2020-10-08 Mago Cobb [facility] [place] 04:13:45 Medical Branch LIPASE 2020-10-08 Mago Cobb [facility] [place] 03:39:00 [facility] TROPONIN I 2020-10-08 Mago [facility] [place] 03:39:00 [facility] COMP. METABOLIC PANEL ([id number]) 2020-10-08 Mago Cobb [facility] 03:39:00 Medical Branch CBC WITH DIFF 2020-10-08 Mago Cobb [facility] ex 03:39:00 Medical Branch COVID-19 (ID NOW RAPID 2020-10-08 Mago Cobb [facility] TESTING) 03:39:00 Medical Branch CONSENT/REFUSAL FOR DIAGNOSIS 2020-10-08 Doctor Unassigned, [facility] AND TREATMENT 02:53:27 [place] [facility] TROPONIN I 2020-10-07 Mago Cobb [facility] ex 10:05:00 Medical Branch [facility]YSIS 2020-10-07 [facility] Branch XR CHEST 1 VW 2020-10-07 Mago Cobb [facility] ex 07:56:15 Medical Branch LIPASE 2020-10-07 [facility] 07:[facility] Branch TROPONIN I 2020-10-[facility] ex 07:38:00 Medical Branch COMP. METABOLIC PANEL ([id number]) 2020-10-07 Mago Cobb [facility] 07:38:00 Medical Branch CBC WITH DIFF 2020-10-07 Mago Cobb [facility] ex 07:38:00 Medical Branch NOTICE OF PRIVACY PRACTICES 2020-10-07 Doctor Unassigned, [facility] 06:41:28 [facility] PHACOEMULSIFICATION OF 2020-09-30 Amarilis [facility] CATARACT WITH INTRAOCULAR 13:48:00 Brian Kelly l [place] LENS IMPLANT POCT GLUCOSE(AGE >30DAYS) 2020-09-30 Eliazar Nicolas [facility] 13:36:00 Medical Branch POCT GLUCOSE (AUTOMATED) 2020-09-30 Amarilis [facility] 13:31:00 [facility] DAY SURGERY - ADC 2020-09-30 Doctor Unassigned, [facility] 06:01:00 [facility] COVID-19 (ID NOW RAPID 2020-09-29 [facility] 15:54:00 [facility] Medical Branch section [facility] Rolan n [facility] Plan of Care Planned Activity Planned Date Details Comments Source Future Scheduled 2023-02-08 COVID-19 VACCINE (2 - [facility] Hospital Test 09:46:12 Moderna series) [code = COVID-19 VACCINE (2 - Moderna series)] Future Scheduled 2023-02-08 INFLUENZA VACCINE [facility] Test 09:46:12 [code = INFLUENZA VACCINE] Future Scheduled 2023-02-08 [facility] Test 09:46:12 malignant neoplasm of colon (procedure) [code = 284486565] Future Scheduled 2023-02-08 [facility] Test 09:46:12 malignant neoplasm of colon (procedure) [code = 951937104] Future Scheduled 2023-02-08 [facility] Test 09:46:12 malignant neoplasm of colon (procedure) [code = 945698781] Future Scheduled 2023-02-08 [facility] 09:46:12 malignant neoplasm of cervix (procedure) [code = 637532627] Future Scheduled 2023-02-08 BREAST CANCER [facility] Test 09:46:12 SCREENING [code = BREAST CANCER SCREENING] Future Scheduled 2023-02-08 Screening for [facility] Test 09:46:12 malignant neoplasm of colon (procedure) [code = 140076545] Future Scheduled 2023-02-08 Screening for [facility] Test 09:46:12 malignant neoplasm of colon (procedure) [code = 358961948] Future Scheduled 2023-02-08 SHINGLES VACCINES ([address] [facility] Hospital Test 09:46:12 of 3) [code = SHINGLES VACCINES (2 of 3)] Future Scheduled 2022-12-27 [facility] Test 11:36:12 malignant neoplasm of cervix (procedure) [code = 296636675] Future Scheduled 2022-12-27 BREAST CANCER [facility] Test 11:36:12 SCREENING [code = BREAST CANCER SCREENING] Future Scheduled 2022-12-27 COLONOSCOPY SCREENING [facility] Test 11:36:12 [code = COLONOSCOPY SCREENING] Future Scheduled 2022-12-27 SHINGLES VACCINES ([address] [facility] Hospital Test 11:36:12 of 3) [code = [...] Diagnostic Test 2020-12-07 pap, IG + HPV, [place] Pending 00:00:00 cervical [code = pap, [facility] IG + HPV, cervical] Outreach Program Future Scheduled COVID-19 VACCINE (1) [facility] Test [code = COVID-19 VACCINE (1)] Future Scheduled [facility] Test malignant neoplasm of cervix (procedure) [code = 973848003] Future Scheduled [facility] Test SCREENING [code = BREAST CANCER SCREENING] Future Scheduled [facility] [code = COLONOSCOPY SCREENING] Future Scheduled SHINGLES VACCINES [facility] Test (#1) [code = SHINGLES VACCINES (#1)] Future Scheduled INFLUENZA VACCINE [facility] Test [code = INFLUENZA VACCINE] Encounters Start End Encounter Admission Attending Care Care Encounter Source Date/Time Date/Time Type Type Clinicians Facility Department ID 2021-06-19 Outpatient Nilson LARA NMSAJAN OPH [id number] Univers 12:22:[address] [facility] 2021-06-19 Emergency X [facility] [id number] Univers 00:01:[address] [facility] 2021-06-18 Outpatient Nilson LARA [facility] SWETA [id number] Univers 21:15:[address] [facility] 2023-06-13 2023-06-13 Outpatient CHAPIS NAVARRO [id number] [facility] 10:30:00 10:30:00 HARVEY charles 2023-05-10 2023-05-10 Outpatient CHAPIS CRAIN [id number] [facility] 09:50:00 09:50:00 JACK charles 2023-04-27 2023-04-27 Outpatient PREZAS CHAPIS ANN [id number] [facility] 09:30:00 09:30:00 POLA Seybol d 2023-02-22 2023-02-22 Outpatient HECTOR FLORES CHAPIS ANN [id number] [facility] 16:15:00 16:15:00 Seybol d 2023-02-22 2023-02-22 Outpatient LAB90 CHAPIS ANN [id number] [facility] 15:40:00 15:40:00 Seybol d 2023-02-22 2023-02-22 Outpatient PREZAS, CHAPIS ANN [id number] [facility] 00:00:00 00:00:00 POLA Seybol d 2023-02-22 2023-02-22 Outpatient PREZASCHAPIS [id number] [facility] 00:00:00 00:00:00 POLA Seybol d 2023-02-22 2023-02-22 Outpatient CHAPIS ANN [id number] [facility] 00:00:00 00:00:00 Seybol d 2023-02-22 2023-02-22 Outpatient PREZAS, CHAPIS ANN [id number] [facility] 00:00:00 00:00:00 POLA Seybol d 2023-02-19 2023-02-19 Outpatient PREZACHAPIS Belle [id number] [facility] 00:00:00 00:00:00 POLA Seybol d 2023-02-16 2023-02-16 Outpatient CHRISTINECHAPIS [id number] [facility] 00:00:00 00:00:00 KD Seybol d 2023-02-14 2023-02-14 Outpatient PREZASCHAPIS [id number] [facility] 00:00:00 00:00:00 POLA Seybol d 2023-02-13 2023-02-13 Outpatient LAB47 CHAPIS ANN [id number] [facility] 14:15:00 14:15:00 Seybol d 2023-02-13 2023-02-13 Outpatient KINGCHAPIS [id number] [facility] 13:30:00 13:30:00 ROBERTO Seybol d 2023-02-08 2023-02-08 Outpatient CHAPIS CRAINSEY [id number] [facility] 10:20:00 10:20:00 JACK Seybol d 2023-01-30 2023-01-30 Outpatient PARAS, CHAPIS ANN [id number] [facility] 10:30:00 10:30:00 JACK Seybol d 2023-01-29 2023-01-29 Outpatient PREZAS, CHAPIS ANN [id number] [facility] 00:00:00 00:00:00 POLA Seybol d 2023-01-29 2023-01-29 Outpatient PREZAS, CHAPIS ANN [id number] [facility] 00:00:00 00:00:00 POLA Seybol d 2023-01-27 2023-01-27 Outpatient PREZAS, CHAPIS ANN [id number] [facility] 00:00:00 00:00:00 POLA Seybol d 2023-01-25 2023-01-25 Outpatient LAB90 CHAPIS ANN [id number] [facility] 10:45:00 10:45:00 Seybol d 2023-01-25 2023-01-25 Outpatient PREZAS, CHAPIS ANN [id number] [facility] 10:00:00 10:00:00 POLA Seybol d 2023-01-23 2023-01-23 Outpatient KINGCHAPIS [id number] [facility] 14:15:00 14:15:00 ROBERTO Seybol d 2023-01-23 2023-01-23 Outpatient CHAPIS LUDWIG [id number] [facility] 00:00:00 00:00:00 MOHAMMED Seybo ld 2023-01-18 2023-01-18 Outpatient PREZAS, CHAPIS ANN [id number] [facility] 00:00:00 00:00:00 POLA Seybol d 2023-01-18 2023-01-18 Outpatient PREZAS, CHAPIS ANN [id number] [facility]is 00:00:00 00:00:00 POLA Seybol d 2023-01-18 2023-01-18 Outpatient PREZASCHAPIS [id number] [facility]is 00:00:00 00:00:00 POLA Seybol d 2023-01-07 2023-01-07 Outpatient CHAPIS MCMAHON [id number] [facility] 00:00:00 00:00:00 POLA Seybol d 2023-01-04 2023-01-04 Outpatient LAB90 CHAPIS ANN [id number] [facility] 09:00:00 09:00:00 Seybol d 2023-01-04 2023-01-04 Outpatient PRECHAPIS OHARA [id number] [facility] 08:15:00 08:15:00 POLA Seybol d 2023-01-04 2023-01-04 Outpatient PRECHAPIS OHARA [id number] [facility] 00:00:00 00:00:00 POLA Seybol d 2023-01-04 2023-01-04 Outpatient CHAPIS ANN [id number] [facility] 00:00:00 00:00:00 Seybol d 2023-01-01 2023-01-01 Outpatient CHAPIS AZUL [id number] [facility] 00:00:00 00:00:00 KAYLIE Seybol d 2023-01-01 2023-01-01 Outpatient CHAPIS ANN [id number] [facility] 00:00:00 00:00:00 Seybol d 2022-12-28 2022-12-28 Outpatient CHAPIS AZUL [id number] [facility] 10:00:00 10:00:00 JINU Seybol d 2022-12-28 2022-12-28 Outpatient [facility] [id number] [place] 00:00:00 00:00:00 SSA [id number] da [facility] Outre h Program 2022-12-27 2022-12-27 Outpatient CHAPIS MCMAHON [id number] [facility] 00:00:00 00:00:00 POLA Seybol d 2022-12-25 2022-12-25 Outpatient CHAPIS AZUL [id number] [facility] 00:00:00 00:00:00 JINU Seybol d 2022-12-25 2022-12-25 Outpatient CAHPIS MCMAHON [id number] Chapis 00:00:00 00:00:00 POLA Seybol d 2022-12-24 2022-12-24 Outpatient PREZAS, CHAPIS ANN [id number] [facility]is 00:00:00 00:00:00 POLA Seybol d 2022-12-21 2022-12-21 Outpatient FB, TECH CHAPIS ANN [id number] [facility] 14:00:00 14:00:00 Seybol d 2022-12-20 2022-12-20 Outpatient JIMMIE, CHAPIS ANN [id number] [facility] 00:00:00 00:00:00 JEAN CARLOS Seybo ld 2022-12-18 2022-12-18 Outpatient PREZAS, CHAPIS ANN [id number] [facility] 13:45:00 13:45:00 POLA Seybol d 2022-12-11 2022-12-11 Outpatient PREZAS, CHAPIS ANN [id number] [facility] 00:00:00 00:00:00 POLA Seybol d 2022-12-11 2022-12-11 Outpatient JIMMIE, CHAPIS ANN [id number] [facility] 00:00:00 00:00:00 JEAN CARLOS Seybo ld 2022-12-06 2022-12-06 Outpatient PREZAS, CHAPIS ANN [id number] [facility] 00:00:00 00:00:00 POLA Seybol d 2022-12-06 2022-12-06 Outpatient PREZAS, CHAPIS ANN [id number] [facility] 00:00:00 00:00:00 POLA Seybol d 2022-12-05 2022-12-05 Outpatient JIMMIE, CHAPIS ANN [id number] [facility] 14:00:00 14:00:00 JEAN CARLOS Seybo ld 2022-12-05 2022-12-05 Outpatient MYKELSEYONL CHAPIS ANN [id number] [facility] 00:00:00 00:00:00 MD RAJ Seybol d 2022-12-05 2022-12-05 Outpatient CHAPIS NAVARRO [id number] [facility] 00:00:00 00:00:00 SYLVIA Seybol d 2022-12-01 2022-12-01 Outpatient CHAPIS AZUL [id number] [facility]is 10:30:00 10:30:00 JINU Seybol d 2022-11-22 2022-11-22 Outpatient JIMMIE, CHAPIS ANN [id number] Chapis 10:00:00 10:00:00 JEAN CARLOS Seybo ld 2022-11-21 2022-11-21 Outpatient CHAPIS ANN [id number] Chapis 13:45:00 13:45:00 Seybol d 2022-11-20 2022-11-20 Outpatient PREZAS, CHAPIS ANN [id number] Chapis 13:45:00 13:45:00 POLA Seybol d 2022-11-20 2022-11-20 Outpatient PREZAS, CHAPIS ANN [id number] Chapis 00:00:00 00:00:00 POLA Seybol d 2022-11-14 2022-11-14 Outpatient PREZAS, CHAPIS ANN [id number] [facility]is 00:00:00 00:00:00 POLA Seybol d 2022-11-13 2022-11-13 Outpatient LATHA, CHAPIS ANN [id number] [facility]is 10:00:00 10:00:00 JINU Seybol d 2022-11-13 2022-11-13 Outpatient TRED45 CHAPIS ANN [id number] [facility] 10:00:00 10:00:00 Seybol d 2022-11-10 2022-11-10 Outpatient LAB90 CHAPIS ANN [id number] [facility] 11:05:00 11:05:00 Seybol d 2022-11-09 2022-11-09 Outpatient PREZAS, CHAPIS ANN [id number] [facility] 00:00:00 00:00:00 POLA Seybol d 2022-10-30 2022-10-30 Outpatient PREZAS, CHAPIS ANN [id number] [facility] 13:45:00 13:45:00 POLA Seybol d 2022-10-26 2022-10-26 Outpatient PREZAS, CHAPIS ANN [id number] [facility] 00:00:00 00:00:00 POLA Seybol d 2022-10-03 2022-10-03 [facility] [id number] Univers 00:00:00 00:00:00 Only Unassigned, ELIESER 350.1.13.10 ity of [facility] 4.2.7.2.686 [facility] [id number] [address] 2022-01-24 2022-01-24 Outpatient Nilson AFUACOLT, [facility] [id number] Univers 14:30:00 14:30:00 ENRIKE [facility] 2021-03-02 2021-03-02 Outpatient ELY_KOKO [facility] [id number] [place] 02:42:00 02:42:00 [id number] [facility] 2020-12-08 2020-12-08 Outpatient Nilson LARA, [facility] [id number] Univers 10:45:00 10:45:00 MIGUEL [facility] 2020-12-07 2020-12-07 Outpatient ELY_KOKO [facility] [id number] [place] 01:00:00 01:00:00 [id number] [facility] 2020-12-07 2020-12-07 Koko [facility] [id number] M atagor 00:00:00 00:00:00 Kendell Henning MD: [employer] [facility] [address] [place] CARLITOS L[place], [place] [employer] [place] Outre [address] h , Ph. Program 2020-11-18 2020-11-18 Outpatient ELY_KOKO [facility] [id number] [place] 11:13:00 11:13:00 [id number] [facility] 2020-11-17 2020-11-17 Outpatient ELY_KOKO [facility] [id number] [place] 04:26:00 04:26:00 [id number] [facility] 2020-10-07 2020-10-08 Emergency Critical access hospital [id number] 21:06:00 03:35:00 Mago Case 350.1.13.10 ity [facility] 4.2.7.2.686 [facility] [id number] [place] [address] Branch 2020-10-07 2020-10-08 Emergency Critical access hospital [id number] 21:06:00 03:35:00 Mago Case 350.1.13.10 [place] 4.2.7.2.686 [place] [id number] [facility] 2020-10-07 2020-10-07 Emergency Critical access hospital [id number] Univers 01:01:00 06:15:00 Mago Case 350.1.13.10 ity of [place] 4.2.7.[address] [place] [id number] 2020-10-07 2020-10-07 Emergency [facility] E[facility] [id number] Univers 01:01:00 06:15:[address] [facility] 2020-10-07 2020-10-07 [facility] [id number] 01:01:00 06:15:00 Mago Case 350.1.13.10 [place] [address] [place] [address] [id number] [facility] 2020-09-30 2020-09-30 [facility] 1.2.840.114 [id number] [facility] 07:01:00 09:00:00 Encounter Miguel Case 350.1.13.10 ity of Brian Gabriel 4.2.7.2.[address] [place] [address] Surgical [id number] Med ical [address] 2020-09-30 2020-09-30 [facility] 1.2.840.114 [id number] 07:01:00 09:00:00 Encounter Miguel Case 350.1.13.10 [place] 4.2.7.2.686 Surgical [id number] [place] [address] 2020-09-30 2020-09-30 Anesthesia Eliazar Nicolas [facility] 1.2.840.11 [id number] Univers 07:53:00 08:23:00 Michael Ryan 350.1.13.10 ity [place] [id number] [facility] 020 Branch 2020-09-30 2020-09-30 Anesthesia Eliazar Nicolas [facility] 1.2.840.11 [id number] 07:53:00 08:23:00 Kwabena Ryanard Manpreet 350.1.13.10 [place] 4.2.7.2.686 Surgical [id number] [place] 020 2020-09-30 2020-09-30 Orders Doctor JONES 1.2.840.114 [id number] Univers 00:00:00 00:00:00 Only Unassigned, ELIESER 350.1.13.10 ity of [place] [facility] 4.2.7.2.686 [place] as [id number] [facility] 009 Branch 2020-09-30 2020-09-30 Orders Doctor JONES 1.2.840.114 [id number] 00:00:00 00:00:00 Only Unassigned, ELIESER 350.1.13.10 [place] [facility] 4.2.7.2.686 [id number] 009 2020-09-29 2020-09-29 Laboratory Only, [facility] Test [facility] 1.2.840. 114 [id number] Univers 09:40:08 09:55:08 Only Miguel Lara 350.1.1 3.10 ity of [place] [id number] [facility] 353 Branch 2020-09-29 2020-09-29 Laboratory Only, [facility] 1.2.840.114 [id number] 09:40:08 09:55:08 Only Test Manpreet 350.1.13.10 [place] 4.2.7.2.686 [place] [id number] 353 2020-09-29 2020-09-29 Outpatient Nilson LARA [facility] [id number] Univers 09:15:00 09:15:[address] [facility] 2020-09-21 2020-09-21 Outpatient Nilson LARA [facility] [id number] Univers 11:15:00 11:15:[address] [facility] 2020-07-07 2020-07-07 Outpatient cMcAlbert MMG MMG [place] 02:18:00 02:18:00 1118 Medical Group 2018-07-08 2018-07-08 Ambulatory nullFlavo MNA [id number] Memoria 16:00:00 16:00:00 Pre-Reg r Neurology 02 l Franky Barrera 2018-07-08 2018-07-08 Ambulatory nullFlavo MNA [id number] Memoria 16:00:00 16:00:00 Pre-Reg r Neurology 02 l Franky Bruce 2018-07-08 2018-07-08 Outpatient MHIE IE [id number] Memoria 10:00:00 10:00:00 02 salvador Barrera 2018-07-08 2018-07-[address] [facility] 260 [id number] 10:00:00 10:00:00 Raz Saad Chidi 2018-04-10 2018-04-10 Outpatient IE IE [id number] Memoria 16:00:00 16:00:00 01 salvador Barrera 2018-04-10 2018-04-10 Outpatient IE IE [id number] Memoria 16:00:00 16:00:00 01 salvador Barrera 2018-03-06 2018-03-06 Outpatient IE IE [id number] Memoria 13:30:00 13:30:00 00 salvador Barrera 2018-03-06 2018-03-06 Outpatient MHIE IE [id number] Memoria 13:30:00 13:30:00 00 salvador Barrera Results Test Description Test Time Test Comments Results Result Comments Source REAGENT STRIP/BLOOD GLUCOSE 2023-02-13 00:00:00 Test Item Value Reference Range Interpretation Comme nts BLOOD SUGAR (test code = 242193) 167 mg/dL 65-99 A Lab Interpretation (test code = 10507-7) Abnormal Chapis Barrientosold - [id number] 07:39:00 Test Item Value Reference Range Interpretation Comments APPEARANCE (test code = Clear Clear 2061913175) COLOR (test code = Straw Yellow A 3836663268) PH (test code = 4.8-8.0 1188671903) SP GRAVITY (test code = 1.003-1.030 2908985607) GLU U QUAL (test code = Normal Normal 2338692959) BLOOD (test code = Negative Negative 0153420965) KETONES (test code = Negative Negative 2874696726) PROTEIN (test code = 100 mg/dL Negative A 2887-8) UROBILIN (test code = Normal Normal 1927394891) BILIRUBIN (test code = Negative Negative 6483101055) NITRITE (test code = Negative Negative 9955525416) LEUK ARVIN (test code = Negative Negative 8669643065) RBC/HPF (test code = See_Comment [Autom ated message] 3467690358) The system [employer] generated this result transmit erika reference range : 0 - 3 HPF. The refe rence range was not u sed to interpret th is result as normal/abnormal . WBC/HPF (test code = See_Comment [Autom ated message] 2673174997) The system [employer] generated this result transmit erika reference range : 0 - 5 HPF. The refe rence range was not u sed to interpret th is result as normal/abnormal . BACTERIA (test code = Few Negative A 8097173118) SQ EPITH (test code = HPF 9613914994) TRANS EPI (test code = <1 See_Comment [Aut omated message] 5844548371) The system [employer] generated this result transmit erika reference range : <=1 HPF. The refere nce range was not u sed to interpret th is result as normal/abnormal . Lab Interpretation (test Abnormal code = 46891-6) [facility] PELVIS W [id number] 04:45:[address] findings to [...] reviewed this study and agree withthe above report.[facility]RI[facility] [id number] 04:13:00 Test Item Value Reference Range Interpretation Comments TROPONIN I (test 0.040 ng/mL See_Comment H [Automated code = 2940097059) message] The system which generated this result [...] ? Lab Interpretation Abnormal (test code = 77056-8) [facility] (ID NOW RAPID TESTING)2020-10-08 04:03:00 Test Item Value Reference Range Interpretation Comments SARS-CoV-2 Rapid ID NOW Not Detected Not Detected (test code = 92562-4) ANDREW (test code = ANDREW) ID NOW COVID-19 Assay is an isothermal nucleic acid amplification test intended for the qualitative detection of nucleic acid from SARS-CoV-2 viral RNA in nasopharyngeal (INFRASTRUCTURE ADMINISTRATOR) specimens. It is used under Emergency Use [...] indicated. Lab Interpretation Normal (test code = 76716-3) [facility] TexasCOMP. METABOLIC PANEL (39214)2020-10-08 04:02:00 Test Item Value Reference Range Interpretation Comments NA (test code = 134 mmol/L 135-145 L 4220986331) K (test code = 4.2 mmol/L 3.5-5 4018057835) CL (test code = 98 mmol/L 98-108 1498993574) CO2 TOTAL (test code = 34 mmol/L 23-31 H 8913440710) AGAP (test code = 2-16 4074957179) BUN (test code = 33 mg/dL 7-23 H 9762153803) GLUCOSE (test code = 100 mg/dL 70-110 4394153471) CREATININE (test code = 1.41 mg/dL 0.5-1.04 H 9569433020) TOTAL BILI (test code = 0.5 mg/dL 0.1-1.8 8382416340) CALCIUM (test code = 9.1 mg/dL 8.6-10.6 6080201757) T PROTEIN (test code = 7.3 g/dL 6.3-8.2 9877102030) ALBUMIN (test code = 3.7 g/dL 3.5-5 0118074428) ALK PHOS (test code = 78 U/L 34-122 2035313975) ALTv (test code = 15 U/L 5-35 1742-6) AST(SGOT) (test code = 24 U/L 13-40 1128449447) eGFR Calculation mL/min/1.73m2 (Non-) (test code = 8434663704) eGFR Calculation mL/min/1.73m2 () (test code = 7197890630) ANDREW (test code = ANDREW) Association of [...] tests). Lab Interpretation Abnormal (test code = 46667-2) [facility]2021-[facility]19 04:02:00 Test Item Value Reference Range Interpretation Comments LIPASE (test code = 5103789521) 54 U/L 0-220 Lab Interpretation (test code = Normal 55288-9) [facility] WITH [id number] 03:55:00 Test Item Value Reference Range Interpretation Comments WBC (test code = See_Comment [Automated message] 6690-2) The system [employer] generated this result transmitted ref erence range: 4.30 - 1 1.10 10*3/?L. The re ference range was not u sed to interpret this result as normal/abnor mal. RBC (test code = See_Comment [Automated message] 789-8) The system [employer] generated this result transmitted ref erence range: [...] RDW-SD (test code 47.6 fL 39-49.9 = 77626-0) RDW-CV (test code 14.6 % 12-15.5 = 788-0) PLT (test code = See_Comment [Automated message] 247-3) The system [employer] generated this result transmitted ref erence range: 166 - 35 8 10*3/?L. The re ference range was not u sed to interpret this result as normal/abnor mal. MPV (test code = 11.0 fL 9.5-12.9 00108-7) NRBC/100 WBC (test See_Comment [Automat ed message] code = 3120495671) The [employer] which generated this result transmitted ref erence range: 0.0 - 10 .0 /100 WBCs. The refer ence range was not u sed to interpret this result as normal/abnor mal. NRBC x10^3 (test <0.01 See_Comment [Automated message] code = 6013632008) [employer] which generated this result transmitted ref erence range: 10*3/?L. The reference range was not used to interpr et this result as normal/abnormal . GRAN MAT (NEUT) % 70.6 % (test code = 770-8) IMM GRAN % (test 0.40 % code = 0297426756) LYMPH % (test code 18.6 % = 736-9) MONO % (test code 8.8 % = 5905-5) EOS % (test code = 1.0 % 713-8) BASO % (test code 0.6 % = 706-2) GRAN MAT 5.89 10*3/uL 1.88-7.09 x10^3(ANC) (test code = 7594315074) IMM GRAN x10^3 0.03 10*3/uL 0-0.06 (test code = 1948786120) LYMPH x10^3 (test 1.55 10*3/uL 1.32-3.29 code = 731-0) MONO x10^3 (test 0.73 10*3/uL 0.33-0.92 code = 742-7) EOS x10^3 (test 0.08 10*3/uL 0.03-0.39 code = 711-2) BASO x10^3 (test 0.05 10*3/uL 0.01-0.07 code = 704-7) [facility]AD[facility] [id number] 10:48:00 Test Item Value Reference Range Interpretation Comments TROPONIN I (test 0.039 ng/mL See_Comment H [Automated code = 6661060140) message] The system which generated this result [...] ? Lab Interpretation Abnormal (test code = 37636-8) [facility] 08:57:00 Test Item Value Reference Range Interpretation Comments LIPASE (test code = 1318740804) 46 U/L 0-220 Lab Interpretation (test code = Normal 65620-1) [facility]2021-02-18 08[facility]:00 Test Item Value Reference Range Interpretation Comments APPEARANCE (test code = Clear Clear [id number]) COLOR (test code = Yellow Yellow [id number]) PH (test code = 4.8-8.0 7373838202) SP GRAVITY (test code = 1.003-1.030 6380148436) GLU U QUAL (test code = 50 mg/dL Normal A 9370444984) BLOOD (test code = Negative Negative 3928063141) KETONES (test code = Negative Negative 5519831385) PROTEIN (test code = 500 mg/dL Negative A 2887-8) UROBILIN (test code = Normal Normal 2883076099) BILIRUBIN (test code = Negative Negative 7007542680) NITRITE (test code = Negative Negative 1104198541) LEUK ARVIN (test code = Negative Negative 4303374742) RBC/HPF (test code = See_Comment [Autom ated message] 4934293007) The system [employer] generated this result transmit erika reference range : 0 - 3 HPF. The refe rence range was not u sed to interpret th is result as normal/abnormal . WBC/HPF (test code = See_Comment [Autom ated message] [id number]) The system [employer] generated this result transmit erika reference range : 0 - 5 HPF. The refe rence range was not u sed to interpret th is result as normal/abnormal . BACTERIA (test code = Few Negative A 0811747567) SQ EPITH (test code = HPF 1891349244) HYAL CAST (test code = See_Comment H [Aut omated message] [id number]) The system [employer] generated this result transmit erika reference range : <=2 LPF. The refere nce range was not u sed to interpret th is result as normal/abnormal . TRANS EPI (test code = <1 See_Comment [Aut omated message] [id number]) The system [employer] generated this result transmit erika reference range : <=1 HPF. The refere nce range was not u sed to interpret th is result as normal/abnormal . Lab Interpretation (test Abnormal code = 55038-8) [id number]:13[facility]00 Test Item Value Reference Range Interpretation Comments TROPONIN I (test 0.036 ng/mL See_Comment H [Automated code = 6898221355) message] The system which generated this result [...] ? Lab Interpretation Abnormal (test code = 06895-7) [facility] ([facility]19[facility]2020-10-07 08:02:00 Test Item Value Reference Range Interpretation Comments NA (test code = 136 mmol/L 135-145 3127946055) K (test code = 4.4 mmol/L 3.5-5 7829037011) CL (test code = 100 mmol/L 98-108 5370859897) CO2 TOTAL (test code = 32 mmol/L 23-31 H 3157895163) AGAP (test code = 2-16 2437239962) BUN (test code = 35 mg/dL 7-23 H 5872830962) GLUCOSE (test code = 138 mg/dL 70-110 H 1171255366) CREATININE (test code = 1.25 mg/dL 0.5-1.04 H 4843835619) TOTAL BILI (test code = 0.5 mg/dL 0.1-1.2 9169637428) CALCIUM (test code = 9.1 mg/dL 8.6-10.6 9954933018) T PROTEIN (test code = 6.8 g/dL 6.3-8.2 8351230356) ALBUMIN (test code = 3.5 g/dL 3.5-5 8677852869) ALK PHOS (test code = 74 U/L 34-122 0033280175) ALTv (test code = 16 U/L 5-35 1742-6) AST(SGOT) (test code = 26 U/L 13-40 0722453865) eGFR Calculation mL/min/1.73m2 (Non-) (test code = 5091205594) eGFR Calculation mL/min/1.73m2 () (test code = 1931412422) ANDREW (test code = ANDREW) Association of [...] tests). Lab Interpretation Abnormal (test code = 02919-6) [facility] WITH [id number] 07:45:00 Test Item Value Reference Range Interpretation Comments WBC (test code = See_Comment [Automated message] 6690-2) The system [employer] generated this result transmitted ref erence range: 4.30 - 1 1.10 10*3/?L. The re ference range was not u sed to interpret this result as normal/abnor mal. RBC (test code = See_Comment [Automated message] 789-8) The system [employer] generated this result transmitted ref erence range: [...] RDW-SD (test code 47.0 fL 39-49.9 = 83079-7) RDW-CV (test code 14.6 % 12-15.5 = 788-0) PLT (test code = See_Comment [Automated message] 777-3) The system whic h generated this result transmitted ref erence range: 166 - 35 8 10*3/?L. The re ference range was not u sed to interpret this result as normal/abnor mal. MPV (test code = 11.7 fL 9.5-12.9 89853-0) NRBC/100 WBC (test See_Comment [Automat ed message] code = 6268716238) The syste m which generated this result transmitted ref erence range: 0.0 - 10 .0 /100 WBCs. The refer ence range was not u sed to interpret this result as normal/abnor mal. NRBC x10^3 (test <0.01 See_Comment [Automated message] code = 0327457472) The syste m which generated this result transmitted ref erence range: 10*3/?L. The reference range was not used to interpr et this result as normal/abnormal . GRAN MAT (NEUT) % 76.3 % (test code = 770-8) IMM GRAN % (test 0.30 % code = 4335359417) LYMPH % (test code 15.4 % = 736-9) MONO % (test code 7.0 % = 5905-5) EOS % (test code = 0.6 % 713-8) BASO % (test code 0.4 % = 706-2) GRAN MAT 7.06 10*3/uL 1.88-7.09 x10^3(ANC) (test code = 5866643668) IMM GRAN x10^3 0.03 10*3/uL 0-0.06 (test code = 7935105113) LYMPH x10^3 (test 1.43 10*3/uL 1.32-3.29 code = 731-0) MONO x10^3 (test 0.65 10*3/uL 0.33-0.92 code = 742-7) EOS x10^3 (test 0.06 10*3/uL 0.03-0.39 code = 711-2) BASO x10^3 (test 0.04 10*3/uL 0.01-0.07 code = 704-7) [facility] GLUCOSE (AUTOMATED)2020-09-30 13:41:00 Test Item Value Reference Range Interpretation Comments POCT GLU (test code = 1318979609) 101 mg/dL 70-110 Lab Interpretation (test code = Normal 56867-8) [facility] [id number] 13:36:00 Test Item Value Reference Range Interpretation Comments POCT Glu (age>30days) (test code = 101 mg/dL 70-110 3342) [facility]ID NOW RAPID TESTING)2020-09-29 16:13:00 Test Item Value Reference Range Interpretation Comments SARS-CoV-2 Rapid ID NOW Not Detected Not Detected (test code = 21224-8) ANDREW (test code = ANDREW) ID NOW COVID-19 Assay is an isothermal nucleic acid amplification test intended for the qualitative detection of nucleic acid from SARS-CoV-2 viral RNA in nasopharyngeal (INFRASTRUCTURE ADMINISTRATOR) specimens. It is used under Emergency Use [...] indicated. Lab Interpretation Normal (test code = 58665-2) [facility]
[2023-02-22] MEDS ORDERED: cloNIDine HCL 0.1 MG TAB ONE (17:27)
[2023-02-22 17:54] LABS: Absolute Lymphocytes (CBC) 1.8 K/uL (0.7-4.9); Hematocrit 37.6 % (36.0-45.0); Lymphocytes % 20.4 % (15.3-44.8); RBC Red Blood Cell Count 4.13 M/uL (3.86-4.86)
[2023-02-22 17:57] LABS: Protime INR 1.1
[2023-02-22] MEDS ORDERED: HYDRALAZINE HCL 20 MG/ML VIAL ONE (17:57)
[2023-02-22 18:07] LABS: ALT/SGPT 20 U/L (13-56); AST/SGOT 18 U/L (15-37); Albumin 2.5 g/dL (3.4-5.0); Alkaline Phosphatase 75 U/L (45-117); BUN Blood Urea Nitrogen 46 mg/dL (7-18); Bicarbonate 32 mEq/L (21-32); Bilirubin Direct < 0.1 mg/dL (0-0.2); Bilirubin Indirect, Calculated ND mg/dL (0.2-0.8); Bilirubin Total 0.3 mg/dL (0.2-1.0); Glomerular Filtration Rate 21 ml/min (=/>90); Glucose Level 121 mg/dL (74-106); Potassium 4.5 mEq/L (3.5-5.1); Protein, Total 8.1 g/dL (6.4-8.2); Sodium Level 134 mEq/L (136-145)
--- NOTE | 2023-02-22 18:27 | RAD REPORT ---
EXAM DESCRIPTION: CT - Head Brain Wo Cont - 02/22/2023 6:05 pm CLINICAL HISTORY: HEADACHE COMPARISON: Head Brain Wo Cont dated 12/28/2022 TECHNIQUE: Noncontrast head CT images were obtained without IV contrast. Multiplanar reformats were generated and reviewed. All CT scans are performed using dose optimization technique as appropriate and may include automated exposure control or mA/KV adjustment according to patient size. FINDINGS: No intracranial hemorrhage, mass, or edema. Midline structures are unremarkable. Normal ventricular caliber for age. Lopez-white matter differentiation is preserved, without evidence of acute infarct. No abnormal extra- axial fluid collections. Nonspecific deep white matter mild hypodensities, may suggest chronic small vessel ischemic changes. Mastoid air cells and visualized portions of the paranasal sinuses are clear. No acute bony findings. IMPRESSION: No evidence of an acute intracranial process.
--- NOTE | 2023-02-22 18:45 | RAD REPORT ---
EXAM DESCRIPTION: CT - Stone Protocol - 02/22/2023 6:05 pm CLINICAL HISTORY: FLANK PAIN COMPARISON: Abdomen Pelvis Wo Contrast dated 02/18/2023 TECHNIQUE: CT imaging of the abdomen and pelvis was performed without IV contrast. Multiplanar refor mats were generated and reviewed. All CT scans are performed using dose optimization technique as appropriate and may include automated exposure control or mA/KV adjustment according to patient size. FINDINGS: No suspicious findings in the lung bases. The liver, spleen and pancreas show no suspicious findings. Status post cholecystectomy. No hydronephrosis or suspicious renal mass. No significant adrenal finding. Multiple exophytic cysts of both kidneys, some of which are hyperdense, largest at the measuring 4 centimeter, stable. Isoden se masses and pyelonephritis cannot be excluded in the absence of IV contrast. No dilated bowel loops or bowel wall thickening. No free air, free fluid or inflammatory stranding. P ronounced diastasis recti again seen. No hernia, mass or bulky lymphadenopathy. The urinary bladder i s without significant finding. No suspicious bony findings. IMPRESSION: No acute findings in the abdomen and pelvis. Stable incidental findings as above.
[2023-02-22] MEDS ORDERED: MORPHINE 4 MG/ML SYR ONE (18:58)
[2023-02-22] MEDS ORDERED: ONDANSETRON 4 MG/2 ML VIAL ONE (18:59)
--- NOTE | 2023-02-22 19:45 | RAD REPORT ---
[facility] CLINICAL HISTORY: elevated troponin COMPARISON: Chest Single View dated 12/27/2022; Chest Single View dated 12/29/2020 TECHNIQUE: Portable AP view of the chest. FINDINGS: Stable central streaky opacities, prominence of the central vasculature, and interstitial prominence. Under aeration somewhat limits evaluation. No pneumothorax or effusion. The cardiomedias tinal contours are unremarkable. IMPRESSION: Stable central congestion/ CHF.
[2023-02-22] MEDS ORDERED: FUROSEMIDE 40 MG/4 ML VIAL ONE (21:52)
--- NOTE | 2023-02-22 22:31 | EDPHYS ---
Physician Documentation [facility] Name: Caprice Mojica Age: 62 yrs Sex: Female : 1960 Arrival Date: 02/22/2023 Time: 16:12 Bed 14 Private MD: Irvin Lowery ED Physician Uli Hirsch HPI: 02/22 16:45 This 62 yrs old Black Female presents to ER via Ambulatory with complaints of High cp Blood Pressure. 16:45 The patient has elevated blood pressure and discovered this at a physician's office, cp and sent to the emergency department for evaluation. Onset: The symptoms/episode began/occurred today. 16:45 Associated signs and symptoms: Pertinent positives: headache, left flank pain, cp shortness of breath, Pertinent negatives: chest pain, vomiting. 16:45 Severity of symptoms: in the emergency department the blood pressure is are actually cp worse, 245 mm Hg. The patient has been recently seen by a physician: Dr. Lowery earlier today, with similar presenting complaints, and was sent to the [facility] Emergency Department for further evaluation. Historical: - Allergies: 16:38 PENICILLINS; ll1 - PMHx: 16:38 Diabetes - IDDM; Congestive heart failure; Hyperlipidemia; Hypertension; stage 4 kidney ll1 failure; - PSHx: 16:38 thyroid surgery; section; hysterectomy; ll1 - Immunization history:: Client reports receiving the 2nd dose of the Covid vaccine. - Social history:: Smoking status: Patient denies any tobacco usage or history of. ROS: 16:50 Constitutional: Negative for fever, poor PO intake. cp 16:50 Eyes: Negative for injury, pain, redness, and discharge. cp 16:50 ENT: Negative for drainage from ear(s), ear pain, sore throat, difficulty swallowing, difficulty handling secretions. 16:50 Cardiovascular: Negative for chest pain, edema. 16:50 Respiratory: Positive for shortness of breath, Negative for cough, wheezing. 16:50 Abdomen/GI: Negative for abdominal pain, vomiting, diarrhea, constipation. 16:50 Neuro: Negative for altered mental status, syncope. 16:50 All other systems are negative. Exam: 16:55 Constitutional: The patient appears in no acute distress, alert, awake, cp non-diaphoretic, non-toxic, well developed, well nourished, obese, uncomfortable. 16:55 Head/Face: Normocephalic, atraumatic. cp 16:55 Eyes: Periorbital structures: appear normal, Pupils: equal, round, and reactive to light and accomodation, Extraocular movements: intact throughout, Conjunctiva: normal, no exudate, no injection, Sclera: no appreciated abnormality, Lids and lashes: appear normal, bilaterally. 16:55 ENT: External ear(s): are unremarkable, Nose: is normal, Mouth: Lips: moist, Oral mucosa: pink and intact, moist, Posterior pharynx: is normal, airway is patent, no erythema, no exudate. 16:55 Neck: ROM/movement: is normal, is supple, without pain, no range of motions limitations, no meningismus. 16:55 Chest/axilla: Inspection: normal. 16:55 Cardiovascular: Rate: normal, Rhythm: regular, Edema: ankle edema, that is very mild, JVD: is not appreciated. 16:55 Respiratory: the patient does not display signs of respiratory distress, Respirations: normal, no use of accessory muscles, no retractions, labored breathing, is not present, Breath sounds: decreased breath sounds, that are mild, throughout, stridor, is not appreciated, wheezing: is not appreciated. 16:55 Abdomen/GI: Inspection: obese Bowel sounds: active, all quadrants, Palpation: soft, in all quadrants, nontender, in all quadrants. 16:55 Neuro: Orientation: to person, place \T\ time. Mentation: able to follow commands, Cerebellar function: Romberg testing is negative, Motor: moves all fours, strength is normal, Sensation: is normal. 17:44 ECG was reviewed by the Attending Physician. cp Vital Signs: 16:35 BP 245 / 116; Pulse 74; Resp 18; Temp 97.7; Pulse Ox 96% ; Weight 122.02 kg; Height 5 ll1 ft. 2 in. ; Pain 10/10; 17:36 BP 235 / 127; Pulse 73; Resp 18 S; Pulse Ox 98% on R/A; aa5 18:12 BP 196 / 94; Pulse 77; Resp 16 S; Pulse Ox 100% on R/A; aa5 19:08 BP 178 / 67; Pulse 78; Resp 16 S; Pulse Ox 100% on R/A; aa5 19:47 BP 144 / 54; Pulse 83; Resp 14; Pulse Ox 93% on R/A; ha1 20:30 BP 171 / 70; Pulse 90; Resp 16 S; Pulse Ox 96% on R/A; ha1 21:30 BP 180 / 75; Pulse 90; Resp 18 S; Pulse Ox 97% on R/A; ha1 22:00 BP 166 / 68; Pulse 92; Resp 18 S; Pulse Ox 98% on R/A; ha1 23:00 BP 188 / 93; Pulse 82; Resp 17 S; Pulse Ox 98% on R/A; ha1 16:35 Body Mass Index 49.20 (122.02 kg, 157.48 cm) ll1 16:35 Pain Scale: Adult ll1 MDM: 16:40 Patient medically screened. cp 22:30 Data reviewed: vital signs, nurses notes, lab test result(s), EKG, radiologic studies, cp CT scan, plain films. 22:30 Differential diagnosis: hypertensive crisis, Malignant HTN, CVA, intracerebral cp hemorrhage. Consideration of Admission/Observation Patient was admitted/placed on observation. Management of patient was discussed with the following: Hospitalist: Erik Paez, TAPEMAN will admit after discussion. Care significantly affected by the following chronic conditions: Diabetes, Hypertension, Congestive Heart Failure. Counseling: I had a detailed discussion with the patient and/or guardian regarding: the historical points, exam findings, and any diagnostic results supporting the discharge/admit diagnosis, lab results, radiology results, the need for further work-up and treatment in the hospital. Response to treatment: the patient's symptoms have mildly improved after treatment. 02/22 16:41 Order name: Urine Microscopic Only; Complete Time: 23:11 02/22 16:46 Order name: Basic Metabolic Panel; Complete Time: 18:36 02/22 18:37 Interpretation: Normal except: NA 134; GLUC 121; BUN 46; CRE 2.45; GFR 21. 02/22 16:46 Order name: CBC with Diff; Complete Time: 18:12 cp 02/22 18:12 Interpretation: Normal except: MCHC 31.9; BASO% 1.4. 02/22 16:46 Order name: LFT's; Complete Time: 18:36 02/22 18:37 Interpretation: Normal except: ALB 2.5; GLOB 5.6; A/G 0.4. cp 07/ 16:46 Order name: Magnesium; Complete Time: 18:36 cp / 18:38 Interpretation: Reviewed. cp / 16:46 Order name: PT-INR; Complete Time: 18:12 cp / 16:46 Order name: Troponin HS; Complete Time: 18:36 cp / 18:37 Interpretation: Abnormal: Troponin HS 64.0. cp / 18:39 Order name: BNP; Complete Time: 21:05 cp / 21:05 Interpretation: NT PRO-BNP 5988; Reviewed. cp / 19:21 Order name: Troponin HS; Complete Time: 22:27 cp / 22:27 Interpretation: Reviewed. cp 02/22 16:46 Order name: CT Head Brain wo Cont; Complete Time: 18:36 cp 02/22 18:38 Interpretation: Report reviewed. cp 02/22 17:41 Order name: CT Stone Protocol; Complete Time: 18:46 cp 02/22 18:47 Interpretation: Report reviewed. cp 02/22 18:39 Order name: XRAY Chest (1 view); Complete Time: 19:50 cp 02/22 16:46 Order name: EKG; Complete Time: 16:46 cp 02/22 16:46 Order name: Cardiac monitoring; Complete Time: 17:39 cp / 16:46 Order name: EKG - Nurse/Tech; Complete Time: 17:39 cp / 16:46 Order name: IV Saline Lock; Complete Time: 17:40 cp 02/22 16:46 Order name: Labs collected and sent; Complete Time: 17:40 cp 02/22 16:46 Order name: O2 Per Protocol; Complete Time: 17:40 cp 02/22 16:46 Order name: O2 Sat Monitoring; Complete Time: 17:40 cp EC:44 Rate is 70 beats/min. Rhythm is regular. NE interval is prolonged at 214 msec. QRS cp interval is normal. QT interval is normal. T waves are Inverted in lead aVR. Interpreted by me. Reviewed by me. Administered Medications: 17:47 Not Given (Physician Discretion): cloNIDine PO 0.2 mg PO once cp 17:50 Drug: hydrALAZINE IVP 20 mg Route: IVP; Site: right antecubital; aa5 18:12 Follow up: BP has improved. PA notified of updated BP reading. aa5 19:01 Drug: morphine IVP or IV 4 mg Route: IVP; Infused Over: 4 mins; Site: right antecubital;aa5 19:09 Follow up: Response: No adverse reaction aa5 19:01 Drug: Ondansetron IVP 4 mg Route: IVP; Site: right antecubital; aa5 19:09 Follow up: Response: No adverse reaction aa5 21:35 Drug: Furosemide IVP 40 mg Route: IVP; Site: right antecubital; ha1 22:00 Follow up: Response: No adverse reaction 22:45 Drug: Aspirin PO Chewable Tablet 324 mg Route: PO; 02/23 00:00 Follow up: Response: No adverse reaction 02/22 23:30 Drug: Promethazine IVP 12.5 mg Route: IVP; Site: right antecubital; ha1 02/23 00:00 Follow up: Response: No adverse reaction; Nausea is decreased 02/22 23:30 Drug: carvedilol PO 12.5 mg Route: PO; ha1 02/23 00:00 Follow up: Response: No adverse reaction ha Disposition: 10:00 Co-signature as Attending Physician, Uli Hirsch MD I reviewed the patient's care rn provided by the Advanced Practice Provider and agree with the diagnosis and treatment plan. Disposition Summary: 02/22/23 22:31 Hospitalization Ordered Hospitalization Status: Observation cp Provider: Naeem Hirsch cp Location: Telemetry/MedSurg (observation) cp Condition: Stable cp Problem: an acute exacerbation cp Symptoms: have improved cp Bed/Room Type: Standard cp Room Assignment: 423(02/22/23 23:21) cg Diagnosis - Hypertensive heart and chronic kidney disease without heart failure, with stage 1 cp through stage 4 chronic kidney disease, or unspecified chronic kidney disease - Unspecified combined systolic (congestive) and diastolic (congestive) heart failure cp Forms: - Medication Reconciliation Form cp - SBAR form cp Signatures: Dispatcher [employer] EDMS Uli Hirsch MD MD rn Calderon, Audri, RN RN aa5 Erik Paez FNP-Mariola SANTOP-Cla1 Darnell Melton PA PA cp Sonja Krishnamurthy RN RN cg Clare Baltazar RN RN 1 Kelly Morse RN RN ha1 Corrections: (The following items were deleted from the chart) 02/22 18:12 18:12 Normal except: MCHC 31.9. cp cp 23:21 22:31 cp cg
--- NOTE | 2023-02-22 22:31 | ER ---
Nurse's Notes [facility] Name: Caprice Mojica Age: 62 yrs Sex: Female : 1960 Arrival Date: 02/22/2023 Time: 16:12 Bed 14 Private MD: Irvin Lowery Diagnosis: Hypertensive heart and chronic kidney disease without heart failure, with stage 1 through stage 4 chronic kidney disease, or unspecified chronic kidney disease;Unspecified combined systolic (congestive) and diastolic (congestive) heart failure Presentation: 02/22 16:35 Chief complaint: Patient states: High BP 218/110 today. Sent in for eval by Dr. Lowery. ll1 Has L flank pain for 3 weeks. Coronavirus screen: Vaccine status: Patient reports receiving the 2nd dose of the covid vaccine. Client denies travel out of the [place] in the last 14 days. At this time, the client does not indicate any symptoms associated with coronavirus-19. Ebola Screen: Patient denies travel to an Ebola-affected area in the 21 days before illness onset. Initial Sepsis Screen: Does the patient meet any 2 criteria? No. Patient's initial sepsis screen is negative. Does the patient have a suspected source of infection? No. Patient's initial sepsis screen is negative. Risk Assessment: Do you want to hurt yourself or someone else? Patient reports no desire to harm self or others. Onset of symptoms was February 22, 2023. 16:35 Method Of Arrival: Ambulatory ll1 16:35 Acuity: HERLINDA 2 ll1 Historical: - Allergies: 16:38 PENICILLINS; ll1 - PMHx: 16:38 Diabetes - IDDM; Congestive heart failure; Hyperlipidemia; Hypertension; stage 4 kidney ll1 failure; - PSHx: 16:38 thyroid surgery; section; hysterectomy; ll1 - Immunization history:: Client reports receiving the 2nd dose of the Covid vaccine. - Social history:: Smoking status: Patient denies any tobacco usage or history of. Screenin:35 [facility] ED Fall Risk Assessment (Adult) History of falling in the last 3 months, aa5 including since admission No falls in past 3 months (0 pts) Confusion or Disorientation No (0 pts) Intoxicated or Sedated No (0 pts) Impaired Gait No (0 pts) Mobility Assist Device Used No (0 pt) Altered Elimination No (0 pt) Score/Fall Risk Level 0 - 2 = Low Risk. Abuse screen: Denies threats or abuse. Nutritional screening: No deficits noted. Tuberculosis screening: No symptoms or risk factors identified. Assessment: 17:35 General: Appears uncomfortable, Behavior is calm, cooperative. Pain: Complains of pain aa5 in left flank Pain radiates to left groin Pain currently is 10 out of 10 on a pain scale. Quality of pain is described as sharp, shooting, Pain began approximately 3 weeks ago Is continuous. Neuro: Level of Consciousness is awake, alert, obeys commands, Oriented to person, place, time, situation, Reports headache. Cardiovascular: Heart tones S1 S2 present Rhythm is regular. Respiratory: Airway is patent Respiratory effort is even, unlabored, Respiratory pattern is regular, symmetrical. GI: Abdomen is obese, Bowel sounds present X 4 quads. Abd is soft and non tender X 4 quads. : Reports pain flank(s), recent UTI and has been taking oral antibiotics without improvement of symptoms. EENT: No signs and/or symptoms were reported regarding the EENT system. Derm: Skin is dry, Skin is normal, Skin temperature is warm. Musculoskeletal: Range of motion: intact in all extremities. 17:36 Reassessment: Pt reports she is has a clonidine patch in place, provider notified and aa5 notified of updated BP reading. . 17:57 Reassessment: Pt at CT . aa5 19:00 Neuro: Level of Consciousness is awake, alert, obeys commands, Oriented to person, aa5 place, time, situation. Respiratory: Airway is patent Respiratory effort is even, unlabored, Respiratory pattern is regular, symmetrical. Derm: Skin is dry, Skin is normal, Skin temperature is warm. 19:45 General: Appears comfortable, Behavior is calm, cooperative. Pain: Complains of pain in ha1 left flank pain Pain does not radiate. Pain currently is 3 out of 10 on a pain scale. Neuro: Level of Consciousness is awake, alert, obeys commands, Oriented to person, place, time, situation. Cardiovascular: Patient's skin is warm and dry. Respiratory: Airway is patent Respiratory effort is even, unlabored, Respiratory pattern is regular, symmetrical. GI: Abdomen is round non-distended, obese, Bowel sounds present X 4 quads. :. Derm: Skin is normal. Musculoskeletal: Circulation, motion, and sensation intact. Range of motion: intact in all extremities. 21:30 Reassessment: Patient and/or family updated on plan of care and expected duration. Pain ha1 level reassessed. Patient is alert, oriented x 3, equal unlabored respirations, skin warm/dry/pink. 22:30 Reassessment: Patient and/or family updated on plan of care and expected duration. Pain ha1 level reassessed. Patient is alert, oriented x 3, equal unlabored respirations, skin warm/dry/pink. 23:42 Reassessment: report given to ELBERT Ramirez. ha1 02/23 00:15 Reassessment: Patient and/or family updated on plan of care and expected duration. Pain ha1 level reassessed. Patient is alert, oriented x 3, equal unlabored respirations, skin warm/dry/pink. Vital Signs: 02/22 16:35 BP 245 / 116; Pulse 74; Resp 18; Temp 97.7; Pulse Ox 96% ; Weight 122.02 kg; Height 5 ll1 ft. 2 in. ; Pain 10/10; 17:36 BP 235 / 127; Pulse 73; Resp 18 S; Pulse Ox 98% on R/A; aa5 18:12 BP 196 / 94; Pulse 77; Resp 16 S; Pulse Ox 100% on R/A; aa5 19:08 BP 178 / 67; Pulse 78; Resp 16 S; Pulse Ox 100% on R/A; aa5 19:47 BP 144 / 54; Pulse 83; Resp 14; Pulse Ox 93% on R/A; ha1 20:30 BP 171 / 70; Pulse 90; Resp 16 S; Pulse Ox 96% on R/A; ha1 21:30 BP 180 / 75; Pulse 90; Resp 18 S; Pulse Ox 97% on R/A; ha1 22:00 BP 166 / 68; Pulse 92; Resp 18 S; Pulse Ox 98% on R/A; ha1 23:00 BP 188 / 93; Pulse 82; Resp 17 S; Pulse Ox 98% on R/A; ha1 16:35 Body Mass Index 49.20 (122.02 kg, 157.48 cm) ll1 16:35 Pain Scale: Adult ll1 ED Course: 16:13 Patient arrived in ED. am2 16:15 Irvin Lowery DO is Private Physician. am2 16:28 [facility] Melton [facility]. cp 16:28 lUi Hirsch MD is Attending Physician. cp 16:37 Triage completed. ll1 17:06 Breanna Spivey, ELBERT is Primary Nurse. aa5 17:35 Patient has correct armband on for positive identification. Bed in low position. Call aa5 light in reach. Side rails up X2. Client placed on continuous cardiac and pulse oximetry monitoring. NIBP monitoring applied. 17:35 Arm band placed on. aa5 17:37 Initial lab(s) drawn, by me, sent to lab. Inserted saline lock: 20 gauge in right aa5 antecubital area, using aseptic technique. Blood collected. 18:07 CT Head Brain wo Cont In Process Unspecified. EDMS 18:07 CT Stone Protocol In Process Unspecified. EDMS 18:12 Notified Nurse Practitioner and/or Physician Machinist General of a critical lab result(s), aa5 Troponin 64. 19:00 Report given to ELBERT Mendoza. aa5 19:21 XRAY Chest (1 view) In Process Unspecified. EDMS 22:30 Naeem Hirsch MD is Hospitalizing Provider. cp 07 00:31 No provider procedures requiring assistance completed. Patient admitted, IV remains in ha1 place. Administered Medications: 07 17:47 Not Given (Physician Discretion): cloNIDine PO 0.2 mg PO once cp 17:50 Drug: hydrALAZINE IVP 20 mg Route: IVP; Site: right antecubital; aa5 18:12 Follow up: BP has improved. GÉNESIS notified of updated BP reading. aa5 19:01 Drug: morphine IVP or IV 4 mg Route: IVP; Infused Over: 4 mins; Site: right antecubital;aa5 19:09 Follow up: Response: No adverse reaction aa5 19:01 Drug: Ondansetron IVP 4 mg Route: IVP; Site: right antecubital; aa5 19:09 Follow up: Response: No adverse reaction aa5 21:35 Drug: Furosemide IVP 40 mg Route: IVP; Site: right antecubital; ha1 22:00 Follow up: Response: No adverse reaction ha1 22:45 Drug: Aspirin PO Chewable Tablet 324 mg Route: PO; ha1 02/23 00:00 Follow up: Response: No adverse reaction 1 02/22 23:30 Drug: Promethazine IVP 12.5 mg Route: IVP; Site: right antecubital; 1 02/23 00:00 Follow up: Response: No adverse reaction; Nausea is decreased [facility] 02/22 23:30 Drug: carvedilol PO 12.5 mg Route: PO; ha1 02/23 00:00 Follow up: Response: No adverse reaction [facility] Medication: 00:33 VIS not applicable for this client. ha1 Intake: Outcome: 02/22 22:31 Decision to Hospitalize by Provider. cp 02/23 00:32 Admitted to Med/surg accompanied by tech, via wheelchair, room 421, with chart. ha1 Condition: stable 00:33 Patient left the ED. [facility] Signatures: Dispatcher [employer] EDMS Breanna Spivey, RN RN aa5 Darnell Melton PA PA cp Yisel Medina am2 Clare Baltazar RN RN ll1 Kelly Morse RN RN ha1 Corrections: (The following items were deleted from the chart) 02/22 16:39 16:35 BP 245 / 112; Pulse 74bpm; Resp 18bpm; Pulse Ox 96%; Temp 97.7F; 122.02 kg; ll1 Height 5 ft. 2 in.; BMI: 49.2; Pain 10/10, Adult; ll1
[2023-02-22] MEDS ORDERED: ASPIRIN 81 MG CHEWABLE TABLET ONE (22:48)
[2023-02-22 23:09] LABS: Urine Bacteria <20 /HPF (<20); Urine Crystals Unidentified Few /HPF (None Seen); Urine Mucus Slight /HPF (None Seen); Urine RBC <5 /HPF (None Seen)
--- NOTE | 2023-02-22 23:25 | P.HP ---
Certification for Inpatient Patient admitted to: Observation With expected LOS: <2 Midnights Patient will require the following post-hospital care: None Practitioner: I am a practitioner with admitting privileges, knowledge of patient current condition, hospital course, and medical plan of care. Services: Services provided to patient in accordance with Admission requirements found in Title 42 Section 412.3 of the Code of Federal Regulations Patient History Date of Service: 02/22/23 Reason for admission: Hypertensive emergency, elevated troponin History of Present Illness: 62-year-old female with history of hypertension, CKD 4, insulin-dependent diabetes, chronic diastolic congestive heart failure, hyperlipidemia, hypothyroidism, MAX presented to the emergency department after being evaluated by her primary care doctor and found to have significantly elevated blood pressures as well as left flank pain. She was recently admitted at our facility on 02/17/2023 and subsequently discharged on 02/18/2023 for CKD, pyelonephritis, hypertension. At that time she had hypertensive urgency and hyperkalemia, her medications were adjusted including holding of her diuretic, discontinuation of spironolactone and hydralazine increased from 50 mg twice daily to 50 mg 3 times a day. Patient misunderstood directions in regards to hydralazine and has not b een taking it at all since she was discharged. Upon arrival to the emergency room patient's blood pressure was significantly elevated reading 245/116, her labs showed stable CKD 4, initial elevated high- sensitivity opponent 64.0 BNP 59[address] EKG without STEMI criteria CT head negative for acute findings CT abdomen pelvis without contrast negative for acute findings chest x-ray showed stable central congestion/CHF. Repeat troponin was performed in ED which was trending downwards at 59.7 currently. Patient denies any chest pain at this time she was given IV hydralazine, IV Lasix in ED with some improvement in her blood pressure currently blood pressure around 170 systolic. ED provider wishes to admit for hypertensive emergency, elevated troponin, left flank pain. Patient was diagnosed with urinary tract infection during her hospitalization on 02/17/2023 and discharged on 02/18/2023 with prescription for cefpodoxime 100 mg p.o. twice daily which she reports she has been compliant with. Her urine today in the emergency department is negative for urinary tract infection. Allergies Penicillins Allergy (Unknown, Verified 01/26/21 08:52) Itching, Whelps Home Medications: Fluticasone/Umeclidin/Vilanter [Trelegy Ellipta 200-62.5-25] 1 puff IH DAILY 12/29/20 Rosuvastatin [Crestor*] 2 tab PO BEDTIME 12/29/20 Carvedilol [Coreg] 12.5 mg PO BID 01/26/21 Clonidine [Catapres-Tts 1] 0.2 mg TOP Q7D 12/27/22 Gabapentin 300 mg PO BID 12/27/22 Aspirin Chewable [Aspirin Chewable*] 81 mg PO DAILY tab.chew 12/30/22 Insulin 70/30 NPH/Reg Human [Novolin 70/30*] 10 unit SQ BIDAC #0 ml 12/30/22 Albuterol Inhaler [Ventolin Inhaler*] 2 puff IH Q6H PRN 02/17/23 Fluticasone Propion/Salmeterol [Fluticasone-Salmeterol 500-50] 02/17/23 Gabapentin 300 mg PO BID 02/17/23 Insulin Detemir [Levemir Flexpen] 20 unit SQ BEDTIME 02/17/23 Levothyroxine [Synthroid*] 125 mcg PO [id number] 02/17/23 Montelukast [Singulair*] 10 mg PO DAILY 02/17/23 carvediloL [Carvedilol] 12.5 mg PO BID 02/17/23 Cefpodoxime Proxetil 100 mg PO BID #14 tab 02/18/23 Hydralazine HCl 50 mg PO TID #90 tab 02/18/23 - Past Medical/Surgical History Diabetic: Yes -: DM 2 -: Morbid obesity -: Hypothyroidism -: HLD -: MAX on CPAP. -: CKD III/IV with Proteinuria (Dr. Granados) -: HTN -: Chronic diastolic congestive heart failure Psychosocial/ Personal History: Patient lives at home with family - Family History Family History: Reviewed- Non-Contributory - Social History Smoking Status: Never smoker Alcohol use: Yes CD- Drugs: No Caffeine use: Yes Place of Residence: Home Review of Systems 10-point ROS is otherwise unremarkable Gastrointestinal: Abdominal Pain (Left lower quadrant/inguinal pain, left flank pain) Musculoskeletal: Other (Restless leg left lower extremity) Physical Examination - Physical Exam General: Alert, In no apparent distress, Oriented x3, Obese HEENT: Atraumatic, PERRLA, Mucous membr. moist/pink, EOMI, Sclerae nonicteric Neck: Supple, 2+ carotid pulse no bruit, No LAD, Without JVD or thyroid abnormality Respiratory: Clear to auscultation bilaterally, Normal air movement Cardiovascular: Regular rate/rhythm, Normal S1 S2 Capillary refill: <2 Seconds Gastrointestinal: Normal bowel sounds, No tenderness Musculoskeletal: No tenderness Integumentary: No rashes Neurological: Normal speech, Normal strength at 5/5 x4 extr, Normal tone, Normal affect - Studies Laboratory Data (last 24 hrs) 02/22/23 17:37: PT 12.1, INR 1.10 02/22/23 17:37: WBC 8.60, Hgb 12.0, Hct 37.6, Plt Count 221 02/22/23 17:37: Sodium 134 L, Potassium 4.5, BUN 46 H, Creatinine 2.45 H, Glucose 121 H, Magnesium 2.0, Total Bilirubin 0.3, AST 18, ALT 20, Alkaline Phosphatase 75 Assessment and Plan - Plan Assessment: Hypertensive emergency with underlying primary hypertension Acute on chronic diastolic congestive heart failure NSTEMI CKD 4 Diabetes mellitus type 2insulin-dependent Hyperlipidemia Hypothyroidism Plan: Hypertensive emergency with underlying primary hypertension Acute on chronic diastolic congestive heart failure NSTEMI During patient's recent admission her medications were adjusted including the discontinuation of her diuretic, spironolactone and increased of hydralazine from twice daily to 3 times daily. Patient has not been taking her to hydralazine at all as she misunderstood discharge instructions. She was given IV hydralazine in the ED, have also given her home medication carvedilol which she had not taken this evening. Blood pressure is improving, troponin trending down. Given dose of IV Lasix in the ED. Will consult nephrology to evaluate home medications, she may benefit from being back on a low-dose diuretic. CKD 4 Stable, continue as above Diabetes mellitus type 2insulin-dependent ACHS Accu-Chek, sliding scale insulin, long-acting insulin continued. Hyperlipidemia Hypothyroidism Home medications continued. DVT PPX: Heparin subcu Code status: Full Discharge Plan: Home Plan to discharge in: 24 Hours - Advance Directives Does patient have a Living Will: No Does patient have a Durable POA for Healthcare: No - Code Status/Comfort Care Code Status Assessed: Yes (Full code) Critical Care: No Time Spent Managing Pts Care (In Minutes): 55
[2023-02-22] MEDS ORDERED: carvediloL 6.25 MG TAB ONE (23:32)
[2023-02-22] MEDS ORDERED: PROMETHAZINE INJ 25 MG/ML AMP ONE (23:32)
[2023-02-22] MEDS ORDERED: HYDROCODONE/APAP 5/325 MG TAB PO PRN (23:57)
[2023-02-22] MEDS ORDERED: ONDANSETRON 4 MG/2 ML VIAL IV PRN (23:57)
[2023-02-22] MEDS ORDERED: ACETAMINOPHEN 500 MG TAB PO PRN (23:57)
[2023-02-22] MEDS ORDERED: MELATONIN 5 MG TABLET PO PRN (23:57)
[2023-02-23] MEDS: LEVOTHYROXINE SOD 0.1 MG TAB PO SCH (05:17)
[2023-02-23] MEDS: carvediloL 12.5 MG TAB PO SCH ×2 (05:17→17:00)
[2023-02-23] MEDS: LEVOTHYROXINE SOD 0.088 MG TAB PO SCH (05:17)
[2023-02-23] MEDS ORDERED: LEVOTHYROXINE SOD 0.1 MG TAB PO SCH (06:30)
--- NOTE | 2023-02-23 07:21 | P.PN ---
Date of Service: 02/23/23 Subjective: feeling better overall today feels her breathing is improving nonspecific Left leg/groin pain for ~3 weeks; exacerbated by bending over ROS: 10 point ROS as noted above, otherwise negative Physical Exam: GEN: Alert, oriented, NAD HEENT: Normal conjunctiva, sclera anicteric CV: Regular rate and rhythm, no edema Pulm: Nonlabored respirations on 2L NC, clear bilaterally ABD: Soft, nontender, nondistended MSK: left thigh at groin mild tenderness, no mass appreciate Integumentary: No rashes Neuro: Normal speech, normal affect vitals reviewed Problem List: Hypertensive emergency with underlying primary hypertension Acute on chronic diastolic CHF NSTEMI CKD 4 IDDM2 Hyperlipidemia Hypothyroidism Hypertensive emergency with underlying primary hypertension Acute on chronic diastolic CHF NSTEMI During patient's recent admission her medications were adjusted including the discontinuation of her diuretic, spironolactone and increased of hydralazine from twice daily to 3 times daily. Patient has not been taking her hydralazine at all as she misunderstood discharge instructions. she stopped taking all her medications She was given IV hydralazine in the ED, have also given her home medication carvedilol which she had not taken. nephrology consulted cont coreg, clonadine, Hydralazine Hold Spironolactone as higher risk for hyperkalemia lasix DCd restarted home bumex at 1mg bid Cardiology consutled troponins elevated x3 (~60-70), monitor on telemetry trending up BNP 5988 CKD 4 Monitor renal function Nephrology following IDDM2 Ac ACHS, SSI, continue long-acting insulin Hyperlipidemia Hypothyroidism Home medications continued. VTE: Heparin sq Code: Full Dispo: Home ~1-2 days
[2023-02-23] MEDS: INSULIN -REGULAR HUMAN 50 UNIT/0.5 ML ML SQ SCH ×4 (07:30→20:10)
[2023-02-23 07:50] LABS: Absolute Lymphocytes (CBC) 1.2 K/uL (0.7-4.9); Hematocrit 34.8 % (36.0-45.0); Lymphocytes % 16.6 % (15.3-44.8); MCV 91.7 fL (80-100); RBC Red Blood Cell Count 3.79 M/uL (3.86-4.86)
[2023-02-23 08:24] LABS: Potassium 5.1 mEq/L (3.5-5.1)
[2023-02-23 08:29] LABS: Troponin High Sensitivity 70.5 pg/mL (<58.9)
[2023-02-23] MEDS: HEPARIN 5000 UNIT/ML 1 ML VIAL SQ SCH ×2 (08:46→20:10)
[2023-02-23] MEDS: HYDRALAZINE HCL 25 MG TABLET PO SCH ×3 (08:46→20:47)
[2023-02-23] MEDS: ASPIRIN EC 81 MG TAB PO SCH (08:46)
[2023-02-23] MEDS: GABAPENTIN 300 MG CAP PO SCH ×2 (08:46→20:46)
[2023-02-23] MEDS ORDERED: FUROSEMIDE 20 MG TABLET PO SCH (09:00)
[2023-02-23] MEDS ORDERED: FUROSEMIDE 20 MG TABLET PO ONE (10:36)
[2023-02-23] MEDS ORDERED: FUROSEMIDE 40 MG TABLET PO SCH (11:00)
--- NOTE | 2023-02-23 11:36 | P.PN ---
(S) Pt known to me from prior hospitalization last month, and pls see consult note from Dr. Granados from earlier this mo for full details. Pt unfortunately re- admitted with hypertensive urgency, pt may not have been taking meds as prescribed, there have been some recent changes. This AM, pt a bit lethargic but has no acute complaints (O) Vitals reviewed in the EMR General: Oriented x3, Cooperative HEENT: Atraumatic, sclera anicteric, not on O2 Neck: Supple Respiratory: b/l air entry, reduced BS at the bases Cardiovascular: Non tachy, no cardiac gallop heart sounds appreciated, peripheral edema noted Gastrointestinal: Soft, obese, NT Musculoskeletal: No clubbing, No contractures Integumentary: No rashes, Neurological: Normal speech, awake although a bit lethargic, no slurred speech, tremors Laboratory Data (last 24 hrs) Reviewed in the EMR Echocardiogram 12-29-20 LEFT VENTRICULAR WALL MOTION: NORMAL. DOPPLER/COLOR FLOW: NORMAL. COMMENTS: MILD CONCENTRIC LEFT VENTRICULAR HYPERTROPHY. NO WALL MOTION ABNORMALITY. NO MITRAL VALVE PROLAPSE. NO EFFUSION. Conclusions/Impression: Recent Stage 1 ROBERT episode(s) Underlying CKD IIIb/IV with Proteinuria -Cont to monitor renal function closely on OP f/u HTN with CKD/CHF -target BP < 130/80 longer-term, will cont Coreg, Clonidine, Hydralazine and lower dose Irbesartan (150 mg qd) on discharge. Diastolic CHF, chronic Hypervolemia on prior admission in December -Improved fluid status since last mo but some congestion still noted on CXR on admission, cont Bumex but at 1 mg qd for now. Hold Spironolactone as higher risk for hyperkalemia with concurrent use of ARB, later on may resume with combined use of Lokelma or Veltassa eKvin Lockwood MD, MARGARITA
[2023-02-23] MEDS ORDERED: BUMETANIDE 1 MG TABLET PO SCH (12:00)
[2023-02-23] MEDS ORDERED: HYDRALAZINE HCL 20 MG/ML VIAL IV ONE (13:44)
[2023-02-23] MEDS: AMLODIPINE 5 MG TAB PO SCH (13:53)
[2023-02-23] MEDS ORDERED: VALSARTAN 80 MG TAB PO SCH (18:00)
[2023-02-23] MEDS: INSULIN GLARGINE 100 UNIT/ML SQ SCH (20:11)
--- NOTE | 2023-02-23 20:36 | CON ---
Date of Consultation: 02/23/2023 Reason For Consultation: Elevated troponin. History Of Present Illness: A 62-year-old female with history of hypertension, chronic kidney diseas e, diabetes, chronic diastolic heart failure, dyslipidemia, hypothyroidism, obesity, presented to the emergency room after she was sent from primary doctor's office because of significantly elevated blo od pressure. The patient denies having any chest pain, no shortness of breath. Blood pressure has b een running in the 200 range systolic. Past Medical History: As outlined above in the HPI. Medications: Refer to reconciliation sheet for detailed list. Allergies: SHE IS ALLERGIC TO PENICILLINS. Family History: No premature coronary artery disease or cancer. Social History: She does not smoke or drink. Does not use any drugs. Review of Systems: All systems were reviewed and they were negative except what is mentioned in the HPI. Physical Examination: Vital Signs: Reviewed. Head and Neck: Pupils are equal, reactive to light. Intact eye movements. No JVD. No cervical lym phadenopathy. Neck is supple. Thyroid is not enlarged. Morbidly obese patient. Lungs: Clear to auscultation bilaterally. No rhonchi, wheezes, or crackles. No accessory muscle us e. Heart: Irregular. No extra sounds. Abdomen: Soft, nontender. Bowel sounds positive. No organomegaly. No masses or hernia. No rigidi ty or rebound. Extremities: Positive edema. No clubbing, cyanosis. Intact pulses. Skin: No rash. Neurologic: Alert, awake, oriented x3. No acute focal deficits appreciated. Investigations: BUN 51, creatinine 2.65. Troponin was 59, 17, and 52. Hemoglobin is 11. Assessment And Recommendations: 1.Elevated troponin. No chest pain. This is demand due to the hypertensive crisis. She will need ischemia workup due to multiple risk factors, but this is to be done as an outpatient. From Cardiolo gy standpoint, no further testing is recommended while she is in the hospital. 2.Hypertension. Blood pressure is extremely elevated. Start her on amlodipine 5 mg daily. Continu e carvedilol, try to up titrate the dose and she is on hydralazine and clonidine. She would benefit as an from nitrates, so if blood pressure continues to be difficult to manage to add Imdur 30 mg daily. 3.Chronic heart failure, on Bumex. Continue current management. 4.Chronic kidney disease. Cardiology will sign off on the case. SR/MODL Voice ID: [id number] Report ID: [id number]
[2023-02-24 01:57] VITALS: BMI 49.1
[2023-02-24 03:40] LABS: Absolute Lymphocytes (CBC) 1.3 K/uL (0.7-4.9); Hematocrit 37.2 % (36.0-45.0); Lymphocytes % 18.4 % (15.3-44.8); MCV 92.5 fL (80-100); MPV 8.6 fL (7.6-11.3); RBC Red Blood Cell Count 4.02 M/uL (3.86-4.86)
[2023-02-24 03:51] LABS: Potassium 5.4 mEq/L (3.5-5.1)
[2023-02-24] MEDS: carvediloL 12.5 MG TAB PO SCH ×2 (05:38→17:50)
[2023-02-24] MEDS: LEVOTHYROXINE SOD 0.088 MG TAB PO SCH (05:39)
[2023-02-24] MEDS: LEVOTHYROXINE SOD 0.1 MG TAB PO SCH (05:39)
--- NOTE | 2023-02-24 07:28 | P.PN ---
Date of Service: 02/24/23 Subjective: Doing okay no acute events overnight no chest pain, breathing improving feels tired this morning ROS: 10 point ROS as noted above, otherwise negative Physical Exam: GEN: Alert, oriented, NAD HEENT: Normal conjunctiva, sclera anicteric CV: Regular rate and rhythm, trace b/l pedal edema Pulm: Nonlabored respirations on 2L NC, clear bilaterally ABD: Soft, nontender, nondistended Integumentary: No rashes Neuro: Normal speech, normal affect vitals reviewed Problem List: Hypertensive emergency with underlying primary hypertension Acute on chronic diastolic CHF NSTEMI CKD 4 IDDM2 Hyperlipidemia Hypothyroidism Hypertensive emergency with underlying primary hypertension Acute on chronic diastolic CHF NSTEMI During patient's recent admission her medications were adjusted including the discontinuation of her diuretic, spironolactone and increased of hydralazine from twice daily to 3 times daily. Patient has not been taking her hydralazine at all as she misunderstood dis charge instructions. she stopped taking all her medications She was given IV hydralazine in the ED, have also given her home medication carvedilol which she had not taken. nephrology consulted restarted coreg, clonadine, Hydralazine hold hydralazine 02/24 Hold Spironolactone as higher risk for hyperkalemia lasix switched to home bumex 02/23, dc'd 02/24 due to relative hypotension and elevated Cr Cardiology consutled troponins elevated x3 (~60-70), monitor on telemetry BNP 5988 recommend outpatient ischemic workup added PO amlodipine 02/23 BP down to low 100s, with slight bump in Cr, possibly from drop in BP adjust meds; recheck renal function in AM CKD 4 Monitor renal function Nephrology following slightly worse 02/24 IDDM2 Ac ACHS, SSI, continue long-acting insulin Hyperlipidemia Hypothyroidism Home medications continued. VTE: Heparin sq Code: Full Dispo: Home ~1-2 days
[2023-02-24] MEDS: INSULIN -REGULAR HUMAN 50 UNIT/0.5 ML ML SQ SCH ×4 (07:30→20:45)
[2023-02-24] MEDS: HEPARIN 5000 UNIT/ML 1 ML VIAL SQ SCH ×2 (08:55→20:44)
[2023-02-24] MEDS: AMLODIPINE 5 MG TAB PO SCH (08:55)
[2023-02-24] MEDS: ASPIRIN EC 81 MG TAB PO SCH (08:55)
[2023-02-24] MEDS: HYDRALAZINE HCL 25 MG TABLET PO SCH ×2 (08:56→13:14)
[2023-02-24] MEDS: SODIUM ZIRCONIUM CYCLOSILICATE 10 GM/PKT PO SCH (08:56)
[2023-02-24] MEDS: GABAPENTIN 300 MG CAP PO SCH ×2 (08:57→20:44)
[2023-02-24] MEDS ORDERED: FUROSEMIDE 40 MG TABLET PO SCH (09:00)
[2023-02-24] MEDS ORDERED: BUMETANIDE 1 MG TABLET PO SCH ×2 (09:00)
[2023-02-24] MEDS ORDERED: VALSARTAN 80 MG TAB PO SCH (09:00)
--- NOTE | 2023-02-24 13:41 | P.PN ---
(S) 02/23 Pt known to me from prior hospitalization last month, and pls see consult note from Dr. Granados from earlier this mo for full details. Pt unfortunately re-admitted with hypertensive urgency, pt may not have been taking meds as prescribed, there have been some recent changes. This AM, pt a bit lethargic but has no acute complaints 7/8 BP better, Cr level has risen, renal function tests discussed with pt and Dr. Hirsch. Pt has received Lokelma dose for hyperkalemia but has not had a BM yet. Pt denies any active dyspnea. (O) Vitals reviewed in the EMR General: Oriented x3, Cooperative HEENT: Atraumatic, sclera anicteric, not on O2 Neck: Supple Respiratory: b/l air entry, mildly reduced BS at the bases Cardiovascular: Non tachy, no cardiac gallop heart sounds appreciated, no sig peripheral edema currently or improved Gastrointestinal: Soft, obese, NT Musculoskeletal: No clubbing, No contractures Integumentary: No rashes, Neurological: Normal speech, awake, less lethargic, no slurred speech, tremors Laboratory Data (last 24 hrs) Reviewed in the EMR Echocardiogram 12-29-20 LEFT VENTRICULAR WALL MOTION: NORMAL. DOPPLER/COLOR FLOW: NORMAL. COMMENTS: MILD CONCENTRIC LEFT VENTRICULAR HYPERTROPHY. NO WALL MOTION ABNORMALITY. NO MITRAL VALVE PROLAPSE. NO EFFUSION. Conclusions/Impression: Recent Stage 1 ROBERT episode(s) Stage 1 ROBERT on underlying CKD IIIb/IV with Proteinuria -Cr level has risen in the setting of BP lowering, unclear if over normotensive renal ischemia or simply glomerular hemodynamics related to the BP lowering, trend renal function tests for at least another day in the hospital and will need close OP f/u Hyperkalemia, mild to moderate Hold ARB, aldactone, treat with cation exchangers, repeat level HTN with CKD/CHF -target BP < 130/80 longer-term, but avoid BP less than 120 systolic currently. Mando have to hold even lower dose ARB currently due to ROBERT and hyperkalemia Diastolic CHF, chronic Hypervolemia on prior admission in December -Improved fluid status since last mo but some congestion still noted on CXR on admission, therefore had continued lower dose loop diuretics. Holding Spironolactone and ARB as mentioned Kevin Lockwood MD, MARGARITA
[2023-02-24] MEDS ORDERED: NA CHLORIDE 0.9% 500 ML IV ONE (14:00)
--- NOTE | 2023-02-24 16:22 | EKG ---
Test Date: 2023-02-22 Test Time: 17:38:20 Clutch Inspector: LINN MEASUREMENT RESULTS: Intervals: Rate: 70 MS: 214 QRSD: 86 QT: 416 QTc: 449 [place]: P: 42 MS: 214 QRS: 29 T: 62 INTERPRETIVE STATEMENTS: Sinus rhythm with 1st degree AV block Cannot rule out Anterior infarct, age undetermined Abnormal ECG Compared to ECG 12/27/2022 12:02:43 Myocardial infarct finding now present Electronically Signed On 02-24-23 16:18:32 CDT by Fernie Rob
[2023-02-24] MEDS: INSULIN GLARGINE 100 UNIT/ML SQ SCH (20:45)
[2023-02-25 04:37] LABS: Potassium 4.5 mEq/L (3.5-5.1)
[2023-02-25] MEDS: LEVOTHYROXINE SOD 0.1 MG TAB PO SCH (05:27)
[2023-02-25] MEDS: LEVOTHYROXINE SOD 0.088 MG TAB PO SCH (05:28)
[2023-02-25] MEDS: carvediloL 12.5 MG TAB PO SCH ×2 (05:28→17:43)
--- NOTE | 2023-02-25 07:28 | P.PN ---
Date of Service: 02/25/23 Subjective: doing okay, asking about going home reports ongoing b/l hand weakness/tremors for a few weeks/months; started off as rare/minor occasion, and worsened in last 1-2 weeks, continues to progressively worsen has also been having trouble with hand rn clinical trials strength, reports dropping items (new this hospitalization) ROS: 10 point ROS as noted above, otherwise negative Physical Exam: GEN: Alert, oriented, NAD HEENT: Normal conjunctiva, sclera anicteric CV: Regular rate and rhythm, trace b/l pedal edema Pulm: Nonlabored respirations on 2L NC, clear bilaterally ABD: Soft, nontender, nondistended Integumentary: No rashes Neuro: Normal speech, normal affect, b/l hand weakness/tremors vitals reviewed Problem List: Hypertensive emergency with underlying primary hypertension Acute on chronic diastolic CHF NSTEMI CKD 4 Bilateral hand weakness/tremors IDDM2 Hyperlipidemia Hypothyroidism Hypertensive emergency with underlying primary hypertension Acute on chronic diastolic CHF NSTEMI During patient's recent admission her medications were adjusted including the discontinuation of her diuretic, spironolactone and increased of hydralazine from twice daily to 3 times daily. Patient has not been taking her hydralazine at all as she misunderstood discharge instructions. she stopped taking all her medications She was given IV hydralazine in the ED, have also given her home medication carvedilol which she had not taken. nephrology consulted BP has been labile Hold Spironolactone as higher risk for hyperkalemia restarted coreg, Hydralazine hold hydralazine 02/24; restarted again 02/25 restarted clonidine patch initially, then dc'd due to low BP lasix switched to home bumex 02/23, dc'd 02/24 due to relative hypotension and elevated Cr Cardiology consulted troponins elevated x3 (~60-70), monitor on telemetry BNP 5988 recommend outpatient ischemic workup added PO amlodipine 02/23 CKD 4 Monitor renal function Nephrology following slowly improving Bilateral hand weakness/tremors 02/25 - reports ongoing b/l hand weakness/tremors, but significantly worse in the last 1-2 weeks; now progressively worsening over the last week states this hospitalization has noticed she is dropping more items and having twitching of b/l hands - more frequently CT head (02/22): No evidence of an acute intracranial process nonspecific deep white matter mild hypodensities, may suggest chronic small vessel ischemic changes. MRI Brain (02/25): ordered Carotid u/s (02/25): ordered r/o CVA, pt with severe HTN on admission, and with periods of relative hypotension avoid significant drops of BP for now IDDM2 Ac ACHS, SSI, continue long-acting insulin Hyperlipidemia Hypothyroidism Home medications continued. VTE: Heparin sq Code: Full Dispo: Home ~1-2 days
[2023-02-25] MEDS: INSULIN -REGULAR HUMAN 50 UNIT/0.5 ML ML SQ SCH ×4 (07:30→20:51)
[2023-02-25] MEDS: AMLODIPINE 5 MG TAB PO SCH (08:48)
[2023-02-25] MEDS: ASPIRIN EC 81 MG TAB PO SCH (08:49)
[2023-02-25] MEDS: HEPARIN 5000 UNIT/ML 1 ML VIAL SQ SCH ×2 (08:49→20:51)
[2023-02-25] MEDS: GABAPENTIN 300 MG CAP PO SCH ×2 (08:49→20:51)
[2023-02-25] MEDS: SODIUM ZIRCONIUM CYCLOSILICATE 10 GM/PKT PO SCH (08:49)
[2023-02-25] MEDS ORDERED: CLONIDINE 0.2 MG/PATCH TD SCH (09:00)
--- NOTE | 2023-02-25 12:05 | RAD REPORT ---
EXAM DESCRIPTION: US - CP - 02/25/2023 11:25 am CLINICAL HISTORY: eval flow/stenosis COMPARISON: No comparisons TECHNIQUE: Real-time sonographic grayscale, color duplex, and spectral wave Doppler evaluation of [facility] carotid systems was performed. FINDINGS: Normal high resistance waveforms are noted in both external carotid arteries. The common c arotid arteries and internal carotid arteries show normal low resistance waveforms. Smooth echogenic mild plaque formation at the proximal right ICA. Deep location and tortuosity of the distal right KEDAR limit visualization. Heterogeneous hypoechoic moderate plaque formation of the prox imal left ICA. Peak systolic velocity less than 125 cm/ sec on the right, and up to 144 cm/ sec on t he left. ICA/CCA peak systolic ratios less than 2.0 bilaterally. Antegrade flow seen in both vertebral arteries. IMPRESSION: Heterogeneous hypoechoic plaque along the proximal left ICA, with 50-69% stenosis. Less than 50% stenosis of the right ICA. No significant abnormalities of the vertebral arteries. Evaluation of carotid artery stenosis, if any, is reported based on consensus recommendations of the Society of Radiologists in Ultrasound (Junito et al., Radiology, 2003)
[2023-02-25] MEDS: HYDRALAZINE HCL 25 MG TABLET PO SCH ×2 (14:07→20:50)
[2023-02-25] MEDS ORDERED: cloNIDine HCL 0.1 MG TAB PO ONE (16:54)
[2023-02-25] MEDS: INSULIN GLARGINE 100 UNIT/ML SQ SCH (20:51)
[2023-02-26] MEDS: LEVOTHYROXINE SOD 0.088 MG TAB PO SCH (05:35)
[2023-02-26] MEDS: LEVOTHYROXINE SOD 0.1 MG TAB PO SCH (05:36)
[2023-02-26] MEDS: carvediloL 12.5 MG TAB PO SCH (05:36)
--- NOTE | 2023-02-26 07:05 | P.PN ---
Date of Service: 02/26/23 Subjective: hands are still a little weak, but hasn't had any issues dropping anything today BP is better today in 160s no new / worsening problems ROS: 10 point ROS as noted above, otherwise negative Physical Exam: GEN: Alert, oriented, NAD HEENT: Normal conjunctiva, sclera anicteric CV: Regular rate and rhythm, trace b/l pedal edema Pulm: Nonlabored respirations on 2L NC, clear bilaterally ABD: Soft, nontender, nondistended Integumentary: No rashes Neuro: Normal speech, normal affect, b/l hand weakness/tremors vitals reviewed Problem List: Hypertensive emergency with underlying primary hypertension Acute on chronic diastolic CHF NSTEMI CKD 4 Bilateral hand weakness/tremors IDDM2 Hyperlipidemia Hypothyroidism Hypertensive emergency with underlying primary hypertension Acute on chronic diastolic CHF NSTEMI During patient's recent admission her medications were adjusted including the discontinuation of her diuretic, spironolactone and increased of hydralazine from twice daily to 3 times daily. Patient has not been taking her hydralazine at all as she misunderstood discharge instructions. she stopped taking all her medications She was given IV hydralazine in the ED, have also given her home medication carvedilol which she had not taken. nephrology consulted BP has been labile Hold Spironolactone as higher risk for hyperkalemia restarted coreg, Hydralazine hold hydralazine 02/24; restarted again 02/25 restarted clonidine patch initially, then dc'd due to low BP lasix switched to home bumex 02/23, dc'd 02/24 due to relative hypotension and elevated Cr Cardiology consulted troponins elevated x3 (~60-70), monitor on telemetry BNP 5988 recommend outpatient ischemic workup added PO amlodipine 02/23 CKD 4 Monitor renal function Nephrology following slowly improving Bilateral hand weakness/tremors 02/25 - reports ongoing b/l hand weakness/tremors, but significantly worse in the last 1-2 weeks; now progressively worsening over the last week states this hospitalization has noticed she is dropping more items and having twitching of b/l hands - more frequently CT head (02/22): No evidence of an acute intracranial process nonspecific deep white matter mild hypodensities, may suggest chronic small vessel ischemic changes. MRI Brain (02/25): ordered Carotid u/s (02/25): ordered r/o CVA, pt with severe HTN on admission, and with periods of relative hypotension avoid significant drops of BP for now IDDM2 Ac ACHS, SSI, continue long-acting insulin Hyperlipidemia Hypothyroidism Home medications continued. VTE: Heparin sq Code: Full Dispo: Home ~1-2 days
[2023-02-26] MEDS: INSULIN -REGULAR HUMAN 50 UNIT/0.5 ML ML SQ SCH ×3 (07:30→15:44)
[2023-02-26] MEDS: AMLODIPINE 5 MG TAB PO SCH (07:51)
[2023-02-26] MEDS: HEPARIN 5000 UNIT/ML 1 ML VIAL SQ SCH (07:51)
[2023-02-26] MEDS: HYDRALAZINE HCL 25 MG TABLET PO SCH ×2 (07:51→13:59)
[2023-02-26] MEDS: ASPIRIN EC 81 MG TAB PO SCH (07:51)
[2023-02-26] MEDS: GABAPENTIN 300 MG CAP PO SCH (07:51)
--- NOTE | 2023-02-26 08:25 | RAD REPORT ---
EXAM DESCRIPTION: MRI - Brain Wo Cont - 02/26/2023 7:33 am CLINICAL HISTORY: r/o CVA, b/l hand weak/tremor COMPARISON: Noncontrast head CT 02/22/2023 TECHNIQUE: Multiplanar multisequence MRI of the brain performed without IV contrast. FINDINGS: No evidence of acute infarct or other diffusion signal abnormality. No evidence of acute intracranial hemorrhage or abnormal extra-axial fluid collections. Ventricular caliber within normal for age. Midline structures are unremarkable. Subtle subcortical and deep white matter T2/FLAIR hyperintensities, nonspecific, but suggestive of ch ronic small vessel ischemic changes. No mass effect or midline shift. Major vascular flow voids are preserved. Mastoid air cells and paranasal sinuses are clear. Evidence of right ocular lens replacement. IMPRESSION: No acute intracranial process. No evidence of ventriculomegaly or mass effect. Subtle deep white matter T2 hyperintensities are nonspecific, but suggest mild chronic small vessel i schemic changes.
[2023-02-26 08:38] VITALS: O2SAT 96
[2023-02-26] MEDS ORDERED: BUMETANIDE 1 MG TABLET PO SCH (09:00)
[2023-02-26 09:16] LABS: Magnesium 2.2 mg/dL (1.6-2.4); Potassium 4.4 mEq/L (3.5-5.1)
--- NOTE | 2023-02-26 10:21 | P.PN ---
Date of Service: 02/26/23 Vital Signs Temp Pulse Resp BP Pulse Ox 97.7 F 60 16 165/72 H 93 02/26/23 04:00 02/26/23 07:52 02/26/23 04:00 02/26/23 07:52 02/26/23 04:00 Medications Acetaminophen (Acetaminophen 500 Mg Tab) 500 mg PO Q4HP PRN PRN Reason: Pain scale 2-4 (Mild) Hydrocodone Bitart/Acetaminophen (Hydrocodone/Apap 5/325 Mg Tab) 1 tab PO Q6H PRN PRN Reason: Pain scale 5-7 (Moderate) Last Admin: 02/23/23 20:46 Dose: 1 tab Amlodipine Besylate (Amlodipine 5 Mg Tab) 5 mg PO DAILY [facility] Last Admin: 02/26/23 07:51 Dose: 5 mg Aspirin (Aspirin Ec 81 Mg Tab) 81 mg PO DAILY [facility] Last Admin: 02/26/23 07:51 Dose: 81 mg Bumetanide (Bumetanide 1 Mg Tablet) 1 mg PO DAILY [facility] Last Admin: 02/26/23 07:52 Dose: 1 mg Carvedilol (Carvedilol 12.5 Mg Tab) 12.5 mg PO BID 6AM 6PM [facility] Last Admin: 02/26/23 05:36 Dose: 12.5 mg Gabapentin (Gabapentin 300 Mg Cap) 300 mg PO BID [facility] Last Admin: 02/26/23 07:51 Dose: 300 mg Heparin Sodium (Porcine) (Heparin 5000 Unit/Ml 1 Ml Vial) 5,000 unit SQ Q12HR [facility] Last Admin: 02/26/23 07:51 Dose: 5,000 unit Hydralazine HCl (Hydralazine Hcl 25 Mg Tablet) 50 mg PO TID [facility] Last Admin: 02/26/23 07:51 Dose: 50 mg Insulin Glargine (Insulin Glargine 100 Unit/Ml) 20 unit SQ BEDTIME [facility] Last Admin: 02/25/23 20:51 Dose: 20 unit Insulin Human Regular (Insulin -Regular Human 50 Unit/0.5 Ml Ml) 0 unit SQ ACHS [facility]; Protocol Last Admin: 02/26/23 07:30 Dose: Not Given Levothyroxine Sodium (Levothyroxine Sod 0.1 Mg Tab) 0.1 mg PO DAILYAC [facility] Last Admin: 02/26/23 05:36 Dose: 0.1 mg Levothyroxine Sodium (Levothyroxine Sod 0.088 Mg Tab) 0.088 mg PO DAILYAC [facility] Last Admin: 02/26/23 05:35 Dose: 0.088 mg Melatonin (Melatonin 5 Mg Tablet) 5 mg PO BEDTIME PRN PRN PRN Reason: INSOMNIA Ondansetron HCl (Ondansetron 4 Mg/2 Ml Vial) 4 mg IV Q6HP PRN PRN Reason: NAUSEA / VOMITING Sodium Chloride (Flush Normal Saline 10 Ml) 10 ml IV BID [facility] Last Admin: 02/26/23 07:52 Dose: 10 ml Assessment/ Plan: Nephrology Feeling better No dyspnea No chest pain No acute events overnight Vitals, medications, blood work and imaging reviewed in the chart NAD. Obese. NCAT. MMM. CTA. RRR. Soft Abd. No C/C/E. No rash. AAO. Normal speech. Stage I ROBERT CKD IV with Proteinuria -No NSAIDs Hyponatremia, stable -Continue Bumex Hyperkalemia -Renal diet -Continue Bumex HTN with CKD/ CHF, variable -Continue Coreg -Increase Amlodipine 5mg BID -Continue Hydralazine 50mg TID -May benefit from Clonidine 0.1mg PO TID PRN SBP>170 at discharge Diastolic CHF, chronic -Low sodium diet -Daily weight -Continue Bumex DM II with CKD -Continue Lantus -RISS Hypoalbuminemia -Recommend protein supplementation Anemia in chronic illness -Monitor H&H Case reviewed with Dr. Hirsch
--- NOTE | 2023-02-26 14:31 | P.DS ---
Admission Date: 02/24/23 Discharge Date: 02/26/23 Reason for Admission: Hypertensive emergency, elevated troponin Consultations: Cardiology - Dr. Rob Nephrology - Dr. Silva / Dr. Lockwood Neurology - Dr. Melo Brief History of Present Illness: 62-yo F, PMH: hypertension, CKD 4, insulin-dependent diabetes, chronic diastolic congestive heart failure, hyperlipidemia, hypothyroidism, MAX presented to the emergency department after being evaluated by her primary care doctor and found to have significantly elevated blood pressures as well as left flank pain. She was recently admitted at our facility on 02/17/2023 and subsequently discharged on 02/18/2023 for CKD, pyelonephritis, hypertension. At that time she had hypertensive urgency and hyperkalemia, her medications were adjusted including holding of her diuretic, discontinuation of spironolactone and hydralazine increased from 50 mg twice daily to 50 mg 3 times a day. Patient misunderstood directions in regards to hydralazine and has not been taking it at all since she was discharged. Upon arrival to the emergency room patient's blood pressure was significantly elevated reading 245/116, her labs showed stable CKD 4, initial elevated high- sensitivity opponent 64.0 BNP 5988 EKG without STEMI criteria CT head negative for acute findings CT abdomen pelvis without contrast negative for acute findings chest x-ray showed stable central congestion/CHF. Repeat troponin was performed in ED which was trending downwards at 59.7 currently. Patient denies any chest pain at this time she was given IV hydralazine, IV Lasix in ED with some improvement in her blood pressure currently blood pressure around 170 systolic. ED provider wishes to admit for hypertensive emergency, elevated troponin, left flank pain. Patient was diagnosed with urinary tract infection during her hospitalization on 02/17/2023 and discharged on 02/18/2023 with prescription for cefpodoxime 100 mg p.o. twice daily which she reports she has been compliant with. Her urine today in the emergency department is negative for urinary tract infection. Hospital Course: Problem List: Hypertensive emergency with underlying primary hypertension Acute on chronic diastolic CHF NSTEMI CKD 4 Bilateral hand weakness/tremors IDDM2 Hyperlipidemia Hypothyroidism Physical Exam: GEN: Alert, oriented, NAD HEENT: Normal conjunctiva, sclera anicteric CV: Regular rate and rhythm, no edema Pulm: Nonlabored respirations on room air, clear bilaterally ABD: Soft, nontender, nondistended MSK: No joint tenderness Integumentary: No rashes Neuro: Normal speech, normal affect, b/l hand weakness/tremors Vital Signs/Physical Exam: Temp Pulse Resp BP Pulse Ox 97.7 F 63 18 185/73 H 94 02/26/23 12:00 02/26/23 12:00 02/26/23 12:00 02/26/23 12:00 02/26/23 12:00 Laboratory Data at Discharge: WBC 7.30 thou/uL (4.3-10.9) 02/24/23 03:25 Hgb 11.7 g/dL (12.0-15.0) L 02/24/23 03:25 Hct 37.2 % (36.0-45.0) 02/24/23 03:25 Plt Count 207 thou/uL (152-406) 02/24/23 03:25 PT 12.1 SECONDS (9.5-12.5) 02/22/23 17:37 INR 1.10 02/22/23 17:37 Sodium 137 mEq/L (136-145) 02/26/23 08:53 Potassium 4.4 mEq/L (3.5-5.1) 02/26/23 08:53 BUN 59 mg/dL (7-18) H 02/26/23 08:53 Creatinine 2.60 mg/dL (0.55-1.02) H 02/26/23 08:53 Glucose 106 mg/dL (74-106) 02/26/23 08:53 Magnesium 2.2 mg/dL (1.6-2.4) 02/26/23 08:53 Total Bilirubin 0.3 mg/dL (0.2-1.0) 02/22/23 17:37 AST 18 U/L (15-37) 02/22/23 17:37 ALT 20 U/L (13-56) 02/22/23 17:37 Alkaline Phosphatase 75 U/L (45-117) 02/22/23 17:37 Triglycerides 122 mg/dL (<150) 02/25/23 04:03 Cholesterol 126 mg/dL (<200) 02/25/23 04:03 HDL Cholesterol 44 mg/dL (40-60) 02/25/23 04:03 Cholesterol/HDL Ratio 2.86 02/25/23 04:03 Home Medications: Rosuvastatin [Crestor*] 2 tab PO BEDTIME 12/29/20 Clonidine [Catapres-Tts 1] 0.2 mg TOP Q7D 12/27/22 Aspirin Chewable [Aspirin Chewable*] 81 mg PO DAILY tab.chew 12/30/22 Albuterol Inhaler [Ventolin Inhaler*] 2 puff IH Q6H PRN 02/17/23 Gabapentin 300 mg PO BID 02/17/23 Insulin Detemir [Levemir Flexpen] 45 unit SQ BEDTIME 02/17/23 Montelukast [Singulair*] 10 mg PO DAILY 02/17/23 carvediloL [Carvedilol] 12.5 mg PO BID 02/17/23 Hydralazine HCl 50 mg PO TID #90 tab 02/18/23 Bumetanide 1 mg PO BID 02/23/23 Irbesartan 150 mg PO BEDTIME 02/23/23 Levothyroxine [Synthroid] 88 mcg PO [id number] 02/23/23 Levothyroxine [Synthroid] 100 mcg PO [id number] 02/23/23 Spironolactone 50 mg PO DAILY 02/23/23 Physician Discharge Instructions: Patient presented with a hypertensive emergency. Patient had not been taking her hydralazine at all as there was some confusion/misunderstanding with her previous discharge instructions. Nephrology was consulted. Her home BP meds were restarted and adjusted, and she had significant improvement of her symptoms. Patient will need close outpatient follow up. Patient with an elevated BNP, and mildly elevated troponins. Cardiology was consulted and felt there was no further inpatient workup warranted as her symptoms are most likely due to her hypertensive crisis. Dr. Rob recommended patient to follow up in office for ischemia workup. During her hospitalization, patient reports ongoing b/l hand weakness/tremors, but significantly worse in the last 1-2 weeks; now progressively worsening over the last week. States this hospitalization has noticed she is dropping more items and having twitching of b/l hands. CT head had No evidence of an acute intracranial process. MRI Brain with No acute intracranial process. No evidence of ventriculomegaly or mass effect. Subtle deep white matter T2 hyperintensities are nonspecific, but suggest mild chronic small vessel ischemic changes. Recommended patient to follow up with neurology if her symptoms persist or worsen. New / change in prescriptions: Continue Coreg Increase Amlodipine 5mg - twice a day Continue Hydralazine 50mg - three times a day Clonidine 0.1mg - as needed only if systolic blood pressure is greater than 170 every 6-8 hours continue other home medications not listed above as previously prescribed Follow up: PCP 3-5 days Nephrology within 1-2 weeks Cardiology within 1-2 weeks Neurology if symptoms persist/worsen Time spent managing pt's care (in minutes): 45
[2023-02-26] MEDS ORDERED: cloNIDine HCL 0.1 MG TAB PO ONE (16:07)
[2023-02-26 16:19] VITALS: BP 176/63
[2023-02-26 18:03] VITALS: TEMP 98.2
[2023-02-26] MEDS ORDERED: AMLODIPINE 5 MG TAB PO SCH (21:00)
--- NOTE | 2023-02-27 03:07 | CON ---
Reason For Consultation: Consultation called because of transient tremors of the hands. History Of Present Illness: Ms. Mojica is a 62-year-old patient with multiple medical problems, adm itted with hypertensive emergency and elevated troponins. She also has insulin-dependent diabetes me llitus, diastolic congestive heart failure, dyslipidemia, hypothyroidism. While in hospital, the pat trino said that she had transient shaking of her hands when trying to do fine motor activity. Those s ymptoms apparently correlated with high potassium levels and when her potassium was corrected those s ymptoms improved. Review of her laboratory studies did not show a very significant elevation of the potassium with an elevation of 5.4 on the 8th when the patient had symptoms and her levels did come b ack down towards normal within the day and her symptoms resolved. She denies a history of tremors. She has a family history of tremors or conditions such as Parkinson disease or essential tremor. Her head CT scan showed no acute ischemic or hemorrhagic change. There was nonspecific small-vessel ischemic disease. A brain MRI earlier today showed mild chronic small vessel ischemic disease withou t acute findings. Past Medical History: Hypothyroidism, diabetes mellitus type 2, obesity, dyslipidemia, obstructive s leep apnea on CPAP, hypertension, chronic diastolic congestive heart failure. Allergies: PENICILLIN. Medications: Trelegy Ellipta 1 puff daily, Crestor at bedtime, Coreg 12.5 mg twice daily, clonidine 0.2 mg every seventh day topical, gabapentin 300 mg twice daily, aspirin 81 mg daily, Novolin insulin 70/30 10 units subcutaneously twice daily Ventolin inhaler 2 puffs every 6 hours as needed, Synthroi d mcg daily, Singulair 10 mg daily, carvedilol 12.5 mg twice daily, hydralazine 50 mg 3 ti mes daily. Family History: Noncontributory. Social History: No tobacco use. Occasional alcohol and caffeinated beverages. Review of Systems: Patient has had chronic left lower quadrant and inguinal pain and left flank pain along with the symp toms of hand tremors and for transient and reported left lower leg restlessness. Otherwise, negative on a 10 point systems review. Physical Examination: Vital Signs: Blood pressure 176/63, pulse 66, respiratory rate 16, temperature 98.2 oxygen saturatio n at 96% room air. General: Yunoir is resting in her hospital bed and daughter at bedside. She denies any complaints at this point in terms of tremors. She is saying she is ready to go home. HEENT: She is normocephalic, atraumatic. Sclerae anicteric. Oropharynx is pink and moist. Neck: Supple. Chest: Clear. Heart: Regular rate. Extremities: Show no edema or cyanosis. Neurologic: No cranial nerve deficits. No motor coordination. Sensory deficits noted. Reflexes sy mmetric. Laboratory Studies: Sodium 137, potassium 4.4, chloride 102, carbon dioxide 34, creatinine 2.60, glu cose range of 102 to 176, calcium 8.7, magnesium 2.2. Complete blood count with differential is esse ntially unremarkable. Coagulation panel is unremarkable. Carotid artery ultrasound shows 56% stenos is in the proximal left ICA and less than 50% stenosis in the right ICA. Assessment And Plan: Ms. Mojica is a 62-year-old patient with mild hand tremors that were self-limi erika when potassium was elevated to 5.4. Tremors resolved and potassium returned towards normal. She has no current evidence of tremors and no prior history of tremors or condition such as Parkinson di sease or essential tremor. Brain MRI shows no acute ischemic or hemorrhagic stroke, but is consisten t with small-vessel ischemic disease. Plan: Aspirin 81 mg daily and continue aggressive management of hypertension and blood sugars. No a dditional neurological workup required. After discharge, she may follow up in Dr. Melo's clinic within the month. HIREN/ANDERSON Voice ID: [id number] Report ID: [id number]
== END 2023-02-26 17:40 | disposition home or self-care (01) | DRG 280 ==
LOC: ER 16:12 → 4TH 23:10 → OBSVTOIN 02-24 15:59
PROVIDERS: ADMIT Hospitalist; ATTEND Hospitalist
DX: I16.1 Hypertensive emergency (principal); I50.33 Acute on chronic diastolic (congestive) heart failure; I21.4 Non-ST elevation (NSTEMI) myocardial infarction; N18.4 Chronic kidney disease, stage 4 (severe); Z68.42 Body mass index [BMI] 45.0-49.9, adult; N17.9 Acute kidney failure, unspecified; E87.1 Hypo-osmolality and hyponatremia; I13.0 Hypertensive heart and chronic kidney disease with heart failure and stage 1 through stage 4 chronic kidney disease, or unspecified chronic kidney disease; E11.22 Type 2 diabetes mellitus with diabetic chronic kidney disease; D63.1 Anemia in chronic kidney disease; E66.01 Morbid (severe) obesity due to excess calories; E87.5 Hyperkalemia; E03.9 Hypothyroidism, unspecified; E78.5 Hyperlipidemia, unspecified; E88.09 Other disorders of plasma-protein metabolism, not elsewhere classified; R25.1 Tremor, unspecified; Z79.4 Long term (current) use of insulin; Z88.0 Allergy status to penicillin; Z79.02 Long term (current) use of antithrombotics/antiplatelets; Z79.82 Long term (current) use of aspirin; Z79.890 Hormone replacement therapy; Z79.899 Other long term (current) drug therapy; Z90.710 Acquired absence of both cervix and uterus
CPT/HCPCS: 36415; 70450; 70551; 71045; 74176; 76377; 80048; 80061; 80076; 81015; 82947; 83735; 83880; 84132; 84484; 85025; 85610; 93005; 93880; 96374; 96375; 99285; G0378; J0360; J1644; J1815; J1940; J2405; J2550; J7040

== ENCOUNTER 2023-03-30 15:46 | Inpatient (IN) | payer OTHER ==
--- OUTSIDE RECORDS SUMMARY | 2023-03-30 15:54 | XMS REPORT | Continuity of Care Document ---
:1960 Author Organization [facility] t Address [address] [facility] [address] [place] [address] Care Team Providers Name Role Phone Popeye Granados MD Primary Care Physician MIGUEL LARA Attending Clinician Unavailable YUKI PORRAS Attending Clinician Unavailable HARVEY NAVARRO Attending Clinician Unavailable HAYDEN PIPER Attending Clinician Unavailable JACK CRAIN Attending Clinician Unavailable POLA MCMAHON Attending Clinician Unavailable LEIGHTON LUDWIG Attending Clinician Unavailable LAB90 Attending Clinician Unavailable HECTOR FLORES Attending Clinician Unavailable KD KING Attending Clinician Unavailable LAB47 Attending Clinician Unavailable ROBERTO MALIK Attending Clinician Unavailable KAYLIE AZUL Attending Clinician Unavailable TAHMINA AZUL Attending Clinician Unavailable ROBIN Attending Clinician Unavailable FB, TECH 1 Attending Clinician Unavailable JEAN CARLOS SAMUEL Attending Clinician Unavailable MD NOEMI Attending Clinician Unavailable SYLVIA NAVARRO Attending Clinician Unavailable [id number] Attending Clinician Unavailable Doctor Unassigned, [place] Attending Clinician Unavailable ENRIKE MONAHAN Attending Clinician [...] Type Policy Number Effective Date Expiration Date [facility] [id number] 2020 CHOICE 00:00:00 [facility] 9 [id number] 2022 BRONZE: HMO ON 00:00:00 [facility] [id number] CHOICE (HMO) [facility] CHOICE [id number] 2012 (POS II) 00:00:00 Problems Condition Condition Condition Status Onset Resolution Last Treating Co mments Source Name Details Category Date Date Treatment Clinician Date Well adult Well adult Disease Active K elsey exam exam 12-18 Seybold 00:00: - 00 Externa l Immunodefi Immunodefi Disease Active K elsey ciency due ciency due 12-18 ybold to to 00:00: - conditions conditions 00 Ex terna classified classified l elsewhere elsewhere Stage 4 Stage 4 Disease Active Chapis chronic chronic 11-19 Seybold kidney kidney 00:00: - disease disease 00 Externa l Hypertensi Hypertensi Disease Active 2023-0 K elsey on on 3-13 Seybold 00:00: - 00 Externa l Simple [...] Univers goiter goiter 4-03 ity of 00:00: [address] [place] Paresthesi Problem Active 2019-01-25 M emoria a Paresthesi 11:26:00 l (finding) marcus Barrera (finding) Active Problem 01/25/2019 [facility] Shoulder Shoulder Problem Active 2019-01-25 Memoria pain pain 11:26:00 l (finding) (finding) Cedric wynn Active Problem 01/25/2019 [facility] Diabetes Diabetes Problem Active 2019-01-25 Memoria mellitus mellitus 11:26:00 l (disorder) (disorder) He rmann Active Problem 01/25/2019 [facility] Morbid Morbid Problem Active 2019-01-25 Darek omer obesity obesity 11:26:00 l (disorder) (disorder) He rmann Active Problem 01/25/2019 [facility] Neck pain Neck pain Problem Active 2019-01-25 Memoria (finding) (finding) 11:26:00 l Active [place] Problem 01/25/2019 [facility] Allergies, Adverse Reactions, [...] penicill Active Memori a ins ins l [place] Social History Social Habit Start Date Stop Date Quantity Comments Source Exposure to Not sure University of SARS-CoV-2 (event) [facility] Gender identity [employer] [facility] orientation [facility] Alcohol intake 2023-02-15 2023-02-15 Lifetime Chapis johnson - 00:00:00 00:00:00 non-drinker External (finding) Tobacco use and 2022-11-13 2022-11-13 Smokeless Chapis Cano ybold - exposure 00:00:00 00:00:00 tobacco non-user External History of Social 2022-11-13 2022-11-13 Chapis Cornelius - function 00:00:00 00:00:00 External Sex [birth year] At [birth year] [employer] 00:00:00 00:00:00 Hospital Smoking Status Start Date Stop Date Source Former Smoker Tomasa Rod[facility] Tobacco smoking consumption [facility] unknown Social History [facility] Medications Ordered Filled Start Stop Current Ordering Indication Dosage Frequency Signature Comments Components Source Medication Medication Date Date Medication? Clinician (SIG) Name Name Insulin 2022- No 30U Inject 30 Muna ey NPH, 02-13 units into Seybold Human,, 13:54: 00:00 the skin 2 - Isophane, 09 :00 times Externa 100 UNIT/ML daily l subcutaneou s Suspension INSULIN 2022- No Novolin R Muna ey ISOPHANE & 02-13 Regular Seybo ld REG MIX, 13:54: 00:00 U100 - HUMAN, 00 :00 Insulin Externa (NOVOLIN l MIX 70/30) (70-30) 100 UNIT/ML subcutaneou s Suspension Aspirin 81 Yes [id number] 81mg Take 1 Chapis MG oral 02-13 tablet (81 Seybol d Tablet 13:08: mg [...] 36 :00 Insuln Externa l Insulin Yes [id number] Inject 45 K elsey Detemir 6-27 units [...] l subcutaneou s Suspension Aspirin 81 Yes [id number] 81mg Take 1 Chapis MG oral 6-22 [...] HFA IN) 30 Externa l Ciclopirox Yes [id number] Apply to Chapis Olamine 6-22 all Seybold 0.77 % 00:00: affected - apply 00 toenails Externa externally daily l Cream Ammonium Yes [id number] Apply to Chapis Lactate 6-22 bilateral Seybold (Lac-Hydrin 00:00: feet daily - ) 12 % 00 Externa apply l externally Cream Ciclopirox Yes [id number] Apply to Chapis Olamine 6-22 all Seybold 0.77 % 00:00: affected - apply 00 toenails Externa externally daily l Cream Ammonium Yes [id number] Apply to Chapis Lactate 6-22 bilateral Seybold (Lac-Hydrin 00:00: feet daily - ) 12 % 00 Externa apply l externally Cream Levothyroxi Yes [id number] 100ug Take 1 Chapis ne Sodium 6-12 tablet Seybold 100 MCG 00:00: (100 mcg - oral Tablet 00 total) by Ext courtney mouth l daily Levothyroxi Yes [id number] 88ug Take 1 [facility] ne Sodium 6-12 tablet (88 Seyb old 88 MCG oral 00:00: mcg total) - Tablet 00 by mouth Externa daily l Levothyroxi 2022-0 Yes [id number] 100ug Take 1 Chapis ne Sodium 6-12 tablet Seybold 100 MCG 00:00: (100 mcg - oral Tablet 00 total) by Ext courtney mouth l daily Levothyroxi 2022-0 Yes [id number] 88ug Take 1 [facility] ne Sodium 6-12 tablet (88 Seyb old 88 MCG oral 00:00: mcg total) - Tablet 00 by mouth Externa daily l Carvedilol 2022-0 Yes [id number] 25mg Take 1 K elsey 25 MG oral 6-08 tablet (25 Sey bold Tablet 00:00: mg total) - 00 by mouth 2 Externa times l daily Montelukast 2022-0 Yes [id number] 10mg QD Take 1 Chapis (SINGULAIR) 6-08 tablet (10 Se ybold 10 MG oral 00:00: mg total) - Tablet 00 by mouth Externa tablet nightly as l needed cloNIDine 2022-0 Yes [id number] 1{patch Apply 1 Chapis 0.2 MG/24HR 6-08 } patch Seybold transdermal 00:00: topically - PATCH 00 every 7 Externa WEEKLY days l Albuterol 2022-0 Yes [id number] .63mg Q.[id number] Take 3 mL Chapis Sulfate 6-08 [id number] (0.63 mg Se ybold 0.63 MG/3ML 00:00: 3D total) by - inhalation 00 nebulizati Ext courtney Inhalant on 3 times l Solution daily as needed for wheezing Carvedilol 2022-0 Yes [id number] 25mg Take 1 K elsey 25 MG oral 6-08 tablet (25 Sey bold Tablet 00:00: mg total) - 00 by mouth 2 Externa times l daily Montelukast 2022-0 Yes [id number] 10mg QD Take 1 Chapis (SINGULAIR) 6-08 tablet (10 Se ybold 10 MG oral 00:00: mg total) - Tablet 00 by mouth Externa tablet nightly as l needed cloNIDine 2022-0 Yes [id number] 1{patch Apply 1 Chapis 0.2 MG/24HR 6-08 } patch Seybold transdermal 00:00: topically - PATCH 00 every 7 Externa WEEKLY days l Albuterol 2022-0 Yes [id number] .63mg Q.[id number] Take 3 mL Chapis Sulfate 6-08 [id number] (0.63 mg Se ybold 0.63 MG/3ML 00:00: 3D total) by - inhalation 00 nebulizati Ext courtney Inhalant on 3 times l Solution daily as needed for wheezing Carvedilol 2022-0 Yes [id number] 25mg Take 1 K elsey 25 MG oral 6-08 tablet (25 Sey bold Tablet 00:00: mg total) - 00 by mouth 2 Externa times l daily Montelukast 2022-0 Yes [id number] 10mg QD Take 1 Chapis (SINGULAIR) 6-08 tablet (10 Se ybold 10 MG oral 00:00: mg total) - Tablet 00 by mouth Externa tablet nightly as l needed cloNIDine 2022-0 Yes [id number] 1{patch Apply 1 Chapis 0.2 MG/24HR 08 } patch Seybold transdermal 00:00: topically - PATCH 00 every 7 Externa WEEKLY days l Albuterol 2022-0 Yes [id number] .63mg Q.[id number] Take 3 mL Chapis Sulfate 6-08 [id number] (0.63 mg Se ybold 0.63 MG/3ML 00:00: 3D total) by - inhalation 00 nebulizati Ext courtney Inhalant on 3 times l Solution daily as needed for wheezing Valacyclovi 2022-0 Yes [id number] 500mg Take 1 Chapis r HCl 6-01 tablet Seybold (Valtrex) 00:00: (500 mg - 500 MG oral 00 total) by Ext courtney Tablet mouth l daily Valacyclovi 2022-0 Yes [id number] 500mg Take 1 Chapis r HCl 6-01 tablet Seybold (Valtrex) 00:00: (500 mg - 500 MG oral 00 total) by Ext courtney Tablet mouth l daily Valacyclovi 2022-0 Yes [id number] 500mg Take 1 Chapis r HCl 6-01 tablet Seybold (Valtrex) 00:00: (500 mg - 500 MG oral 00 total) by Ext courtney Tablet mouth l daily Levothyroxi 2022-0 Yes [id number] 200ug Take 1 Chaips ne Sodium 5-21 tablet Seybold 200 MCG 00:00: (200 mcg - oral Tablet 00 total) by Ext courtney mouth l daily Insulin 2022-0 Yes 30U Inject 30 Kelse y NPH, 5-18 units into Seybold Human,, 08:10: the skin 2 - Isophane, 32 times Externa 100 UNIT/ML daily l subcutaneou s Suspension Aspirin 81 2022-0 Yes [id number] 81mg Take 1 Chapis MG oral 5-18 tablet (81 Seybol d Tablet 08:10: mg total) - Delayed 32 by mouth Externa Response daily l Insulin 3-0 Yes 30U Inject 30 Kelse y NPH, 5-18 units into Seybold Human,, 08:10: the skin 2 - Isophane, 32 times Externa 100 UNIT/ML daily l subcutaneou s Suspension Aspirin 81 2022-0 Yes [id number] 81mg Take 1 Chapis MG oral 5-18 tablet (81 Seybol d Tablet 08:10: mg total) - Delayed 32 by mouth Externa Response daily l Mupirocin 2023-0 Yes [id number] Apply 1 [facility] (BACTROBAN) 5-18 applicatio Se ybold 2 % apply 00:00: n. - externally 00 topically Exte rna Ointment 2 times l daily Cephalexin 2023-0 Yes [id number] 250mg Take 1 [facility] (Keflex) 5-18 capsule Seybold 250 MG oral 00:00: (250 mg - Capsule 00 total) by Externa mouth 2 l times daily Mupirocin 2023-0 Yes [id number] Apply 1 [facility] (BACTROBAN) 5-18 applicatio Se ybold 2 % apply 00:00: n. - externally 00 topically Exte rna Ointment 2 times l daily Mupirocin 2023-0 Yes [id number] Apply 1 [facility] (BACTROBAN) 5-18 applicatio Se ybold 2 % apply 00:00: n. - externally 00 topically Exte rna Ointment 2 times l daily Mupirocin 2023-0 Yes [id number] Apply 1 [facility] (BACTROBAN) 5-18 applicatio Se ybold 2 % apply 00:00: n. - externally 00 topically Exte rna Ointment 2 times l daily Cephalexin 0 2022- No [id number] 250mg Take 1 [facility] (Keflex) 5-18 06-08 capsule Seybold 250 MG oral 00:00: 00:00 (250 mg - Capsule 00 :00 total) by Externa mouth 2 l times daily metOLazone 0 Yes 2.5mg Take 1 Muna ey 2.5 MG oral 5-13 tablet Seybol d Tablet 00:00: (2.5 mg - tablet 00 total) by Externa mouth l every 48 hours metOLazone Yes 2.5mg Take 1 Muna ey 2.5 MG oral 5-13 tablet Seybol d Tablet 00:00: (2.5 mg - tablet 00 total) by Externa mouth l every 48 hours metOLazone 0 Yes 2.5mg Take 1 Muna ey 2.5 MG oral 5-13 tablet Seybol d Tablet 00:00: (2.5 mg - tablet 00 total) by Externa mouth l every 48 hours metOLazone Yes 2.5mg Take 1 Muna ey 2.5 MG oral 5-13 tablet Seybol d Tablet 00:00: (2.5 mg - tablet 00 total) by Externa mouth l every 48 hours Insulin 0 Yes 30U Inject 30 Kelse y NPH, 5-01 units into Seybold Human,, 13:42: the skin 2 - Isophane, 12 times Externa 100 UNIT/ML daily l subcutaneou s Suspension Aspirin 81 0 Yes [id number] 81mg Take 1 Chapis MG oral 5-01 tablet (81 Seybol d Tablet 13:42: mg total) - Delayed 12 by mouth Externa Response daily l Insulin 0 Yes 30U Inject 30 Kelse y NPH, 5-01 units into Seybold Human,, 13:42: the skin 2 - Isophane, 12 times Externa 100 UNIT/ML daily l subcutaneou s Suspension Aspirin 81 2022-0 Yes [id number] 81mg Take 1 Chapis MG oral 5-01 tablet (81 Seybol d Tablet 13:42: mg total) - Delayed 12 by mouth Externa Response daily l Bumetanide 0 Yes [id number] 1mg Take 1 K elsey 1 MG oral 5-01 tablet (1 Seybo ld Tablet 00:00: mg total) - 00 by mouth 2 Externa times l daily Bumetanide 3-0 Yes [id number] 1mg Take 1 K elsey 1 MG oral 5-01 tablet (1 Seybo ld Tablet 00:00: mg total) - 00 by mouth 2 Externa times l daily Bumetanide 3-0 Yes [id number] 1mg Take 1 K elsey 1 MG oral 5-01 tablet (1 Seybo ld Tablet 00:00: mg total) - 00 by mouth 2 Externa times l daily Bumetanide 2022-0 Yes [id number] 1mg Take 1 K elsey 1 MG oral 5-01 tablet (1 Seybo ld Tablet 00:00: mg total) - 00 by mouth 2 Externa times l daily Bumetanide 2022-0 Yes [id number] 1mg Take 1 K elsey 1 MG oral 5-01 tablet (1 Seybo ld Tablet 00:00: mg total) - 00 by mouth 2 Externa times l daily Bumetanide 2022-0 Yes [id number] 1mg Take 1 K elsey 1 MG oral 5-01 tablet (1 Seybo ld Tablet 00:00: mg total) - 00 by mouth 2 Externa times l daily Gabapentin 2023-0 Yes [id number] 300mg Take 1 Chapis 300 MG oral 4-24 capsule Seybo ld Capsule 00:00: (300 mg - 00 total) by Externa mouth 2 l times daily Gabapentin 2023-0 Yes [id number] 300mg Take 1 Chapis 300 MG oral 4-24 capsule Seybo ld Capsule 00:00: (300 mg - 00 total) by Externa mouth 2 l times daily Gabapentin 2023-0 Yes [id number] 300mg Take 1 Chapis 300 MG oral 4-24 capsule Seybo ld Capsule 00:00: (300 mg - 00 total) by Externa mouth 2 l times daily Gabapentin 2023-0 Yes [id number] 300mg Take 1 Chapis 300 MG oral 4-24 capsule Seybo ld Capsule 00:00: (300 mg - 00 total) by Externa mouth 2 l times daily Gabapentin 2023-0 Yes [id number] 300mg Take 1 Chapis 300 MG oral 4-24 capsule Seybo ld Capsule 00:00: (300 mg - 00 total) by Externa mouth 2 l times daily Gabapentin 2022-0 Yes [id number] 300mg Take 1 Chapis 300 MG oral 4-24 capsule Seybo ld Capsule 00:00: (300 mg - 00 total) by Externa mouth 2 l times daily Fluticasone 2022-0 2023- No INHALE 1 K elsey -Umeclidin- 4-18 04-18 PUFF ONCE Se ybold Vilant 13:59: 00:00 DAILY FOR - (Trelegy 36 :00 30 DAYS Externa Ellipta) l 200-62.5-25 MCG/ACT inhalation AEROSOL POWDER, BREATH ACTIVATED Insulin 2022-0 Yes 30U Inject 30 Kelse y NPH, 4-18 units into Seybold Human,, 13:38: the skin 2 - Isophane, 11 times Externa 100 UNIT/ML daily l subcutaneou s Suspension Aspirin 81 2022-0 Yes [id number] 81mg Take 1 Chap[facility] MG oral 4-18 [...] MCG/ACT inhalation AEROSOL POWDER, BREATH ACTIVATED Fluticasone 3-0 Yes 1{puff} Inhale 1 Chapis -Salmeterol 4-18 puff into Sey bold (Advair 00:00: the lungs - Diskus) 00 2 times Externa 500-50 daily l MCG/ACT inhalation AEROSOL POWDER, BREATH ACTIVATED Fluticasone 3-0 Yes 1{puff} Inhale 1 Chapis -Salmeterol 4-18 [...] mouth Externa daily l Gabapentin, 2022-0 Yes [id number] 1{tbl} Take 1 Chapis Once-Daily, 4-03 tablet by Christina bold (Gralise) 00:00: mouth - 300 MG oral 00 daily Externa Tablet l Bumetanide 2022-0 2023- No 1mg Take 1 Muna ey 1 MG oral 4- 05-01 tablet (1 Seyb old Tablet 00:00: 00:00 mg total) - 00 :00 by mouth Externa daily l Levothyroxi 0 Yes [id number] 175ug Take 1 [facility] ne Sodium 3-28 tablet Seybold 175 MCG 00:00: (175 mcg - oral Tablet 00 total) by Ext courtney mouth l daily Rosuvastati 0 Yes [id number] 20mg Take 1 Chapis n Calcium 3-28 3 tablet (20 Seyb old 20 MG oral 00:00: mg total) - Tablet 00 by mouth Externa daily l Levothyroxi 0 Yes [id number] 175ug Take 1 [facility] ne Sodium 3-28 tablet Seybold 175 MCG 00:00: (175 mcg - oral Tablet 00 total) by Ext courtney mouth l daily Rosuvastati 0 Yes [id number] 20mg Take 1 Chapis n Calcium 3-28 3 tablet (20 Seyb old 20 MG oral 00:00: mg total) - Tablet 00 by mouth Externa daily l Levothyroxi Yes [id number] 175ug Take 1 [facility] ne Sodium 3-28 tablet Seybold 175 MCG 00:00: (175 mcg - oral Tablet 00 total) by Ext courtney mouth l daily Rosuvastati 0 Yes [id number] 20mg Take 1 Chap[facility] n Calcium 3-28 3 tablet (20 Seyb old 20 MG oral 00:00: mg total) - Tablet 00 by mouth Externa daily l Rosuvastati 0 Yes [id number] 20mg Take 1 Chapis n Calcium 3-28 3 tablet (20 Seyb old 20 MG oral 00:00: mg total) - Tablet 00 by mouth Externa daily l Rosuvastati 0 Yes [id number] 20mg Take 1 Chapis n Calcium 3-28 3 tablet (20 Seyb old 20 MG oral 00:00: mg total) - Tablet 00 by mouth Externa daily l Rosuvastati 0 Yes [id number] 20mg Take 1 Chapis n Calcium 3-28 3 tablet (20 Seyb old 20 MG oral 00:00: mg total) - Tablet 00 by mouth Externa daily l Levothyroxi 2023-0 Yes [id number] 175ug Take 1 [facility] ne Sodium 3-28 tablet Seybold 175 MCG 00:00: (175 mcg - oral Tablet 00 total) by Ext courtney mouth l daily Rosuvastati 2022-0 Yes [id number] 20mg Take 1 Chapis n Calcium 3-28 3 tablet (20 Seyb old 20 MG oral 00:00: mg total) - Tablet 00 by mouth Externa daily l Irbesartan 2022-0 Yes [id number] 150mg Take 1 Chapis 150 MG oral 3-27 tablet Seybol d Tablet 00:00: (150 mg - 00 total) by Externa mouth l nightly hydrALAZINE 2022-0 Yes [id number] 50mg Take 1 Chap[facility] HCl 50 MG 3-27 tablet (50 Seyb old oral Tablet 00:00: mg total) - 00 by mouth 3 Externa times l daily Irbesartan 2022-0 Yes [id number] 150mg Take 1 Chapis 150 MG oral 3-27 tablet Seybol d Tablet 00:00: (150 mg - 00 total) by Externa mouth l nightly hydrALAZINE 2022-0 Yes [id number] 50mg Take 1 [facility] HCl 50 MG 3-27 tablet (50 Seyb old oral Tablet 00:00: mg total) - 00 by mouth 3 Externa times l daily Irbesartan 2022-0 Yes [id number] 150mg Take 1 Chapis 150 MG oral 3-27 tablet Seybol d Tablet 00:00: (150 mg - 00 total) by Externa mouth l nightly hydrALAZINE 2022-0 Yes [id number] 50mg Take 1 [facility] HCl 50 MG 3-27 tablet (50 Seyb old oral Tablet 00:00: mg total) - 00 by mouth 3 Externa times l daily Irbesartan 2022-0 Yes [id number] 150mg Take 1 Chapis 150 MG oral 3-27 tablet Seybol d Tablet 00:00: (150 mg - 00 total) by Externa mouth l nightly hydrALAZINE 2022-0 Yes [id number] 50mg Take 1 [facility] HCl 50 MG 3-27 tablet (50 Seyb old oral Tablet 00:00: mg total) - 00 by mouth 3 Externa times l daily Irbesartan 2022-0 Yes [id number] 150mg Take 1 Chapis 150 MG oral 3-27 tablet Seybol d Tablet 00:00: (150 mg - 00 total) by Externa mouth l nightly hydrALAZINE 2022-0 Yes [id number] 50mg Take 1 [facility] HCl 50 MG 3-27 tablet (50 Seyb old oral Tablet 00:00: mg total) - 00 by mouth 3 Externa times l daily Irbesartan 2022-0 Yes [id number] 150mg Take 1 Chapis 150 MG oral 3-27 tablet Seybol d Tablet 00:00: (150 mg - 00 total) by Externa mouth l nightly hydrALAZINE 2022-0 Yes [id number] 50mg Take 1 [facility] HCl 50 MG 3-27 tablet (50 Seyb old oral Tablet 00:00: mg total) - 00 by mouth 3 Externa times l daily Irbesartan 2022-0 Yes [id number] 150mg Take 1 Chapis 150 MG oral 3-27 tablet Seybol d Tablet 00:00: (150 mg - 00 total) by Externa mouth l nightly hydrALAZINE 2022-0 Yes [id number] 50mg Take 1 [facility] HCl 50 MG 3-27 tablet (50 Seyb old oral Tablet 00:00: mg total) - 00 by mouth 3 Externa times l daily Gabapentin, 2022-2022- No 3{tbl} Take 3 K elsey Once-Daily, 3-13 -13 tablets by Yoshi mayorga ([facility]) 14:05: 00:00 mouth as - 300 MG oral 49 :00 needed Cigarette Packer a Tablet l Bumetanide Yes 1mg Take 1 mg Ke lsey 1 MG oral 3-13 by mouth Seybol d Tablet 13:58: daily - 43 Externa l Insulin 2022-0 Yes 30U Inject 30 Kelse y NPH, 3-13 units into Seybold Human,, 13:53: the skin 2 - Isophane, 32 times Externa 100 UNIT/ML daily l subcutaneou s Suspension Fluticasone 0 Yes INHALE 1 Ke lsey -Umeclidin- 3-13 PUFF ONCE Sey bold Vilant 13:43: DAILY FOR - (Trelegy 37 30 DAYS Externa Ellipta) l 200-62.5-25 MCG/ACT inhalation AEROSOL POWDER, BREATH ACTIVATED Spironolact 3-0 Yes [id number] 25mg Take 1 Chapis one 25 MG 3-13 tablet (25 Seyb old oral Tablet 00:00: mg total) - 00 by mouth 2 Externa times l daily Montelukast 3-0 Yes [id number] 10mg Take 1 [facility] (SINGULAIR) 3-13 tablet (10 Se ybold 10 MG oral 00:00: mg total) - Tablet 00 by mouth Externa tablet nightly l cloNIDine 3-0 Yes [id number] 1{patch Apply 1 Chapis 0.2 MG/24HR 3-13 } patch Seybold transdermal 00:00: topically - PATCH 00 every 7 Externa WEEKLY days l Spironolact 3-0 Yes [id number] 25mg Take 1 Chapis one 25 MG 3-13 tablet (25 Seyb old oral Tablet 00:00: mg total) - 00 by mouth 2 Externa times l daily Montelukast 3-0 Yes [id number] 10mg Take 1 [facility] (SINGULAIR) 3-13 tablet (10 Se ybold 10 MG oral 00:00: mg total) - Tablet 00 by mouth Externa tablet nightly l cloNIDine 3-0 Yes [id number] 1{patch Apply 1 Chapis 0.2 MG/24HR 3-13 } patch Seybold transdermal 00:00: topically - PATCH 00 every 7 Externa WEEKLY days l Spironolact 3-0 Yes [id number] 25mg Take 1 Chapis one 25 MG 3-13 tablet (25 Seyb old oral Tablet 00:00: mg total) - 00 by mouth 2 Externa times l daily Montelukast 3-0 Yes [id number] 10mg Take 1 [facility] (SINGULAIR) 3-13 tablet (10 Se ybold 10 MG oral 00:00: mg total) - Tablet 00 by mouth Externa tablet nightly l cloNIDine 2023-0 Yes [id number] 1{patch Apply 1 Chapis 0.2 MG/24HR 3-13 } patch Seybold transdermal 00:00: topically - PATCH 00 every 7 Externa WEEKLY days l Spironolact 2023-0 Yes [id number] 25mg Take 1 Chapis one 25 MG 3-13 tablet (25 Seyb old oral Tablet 00:00: mg total) - 00 by mouth 2 Externa times l daily Spironolact 2022-0 Yes [id number] 25mg Take 1 Chapis one 25 MG 3-13 tablet (25 Seyb old oral Tablet 00:00: mg total) - 00 by mouth 2 Externa times l daily Spironolact 3-0 Yes [id number] 25mg Take 1 Chap[facility] one 25 MG 3-13 tablet (25 Seyb old oral Tablet 00:00: mg total) - 00 by mouth 2 Externa times l daily Spironolact 2022-0 Yes [id number] 25mg Take 1 Chapis one 25 MG 3-13 tablet (25 Seyb old oral Tablet 00:00: mg total) - 00 by mouth 2 Externa times l daily Montelukast 2022-0 Yes [id number] 10mg Take 1 [facility] (SINGULAIR) 3-13 tablet (10 Se ybold 10 MG oral 00:00: mg total) - Tablet 00 by mouth Externa tablet nightly l Gabapentin, 2022-0 Yes [id number] 1{tbl} Take 1 [facility] Once-Daily, 3-13 tablet by Christina johnson (Gralise) 00:00: mouth - 300 MG oral 00 daily Externa Tablet l cloNIDine 2022-0 Yes [id number] 1{patch Apply 1 Chapis 0.2 MG/24HR 3-13 } patch Seybold transdermal 00:00: topically - PATCH 00 every 7 Externa WEEKLY days l Spironolact 2022-0 Yes [id number] 25mg Take 1 Chapis one 25 MG 3-13 tablet (25 Seyb old oral Tablet 00:00: mg total) - 00 by mouth 2 Externa times l daily Montelukast 2022-0 Yes [id number] 10mg Take 1 [facility] (SINGULAIR) 3-13 tablet (10 Se ybold 10 MG oral 00:00: mg total) - Tablet 00 by mouth Externa tablet nightly l cloNIDine 2022-0 Yes [id number] 1{patch Apply 1 Chapis 0.2 MG/24HR 3-13 } patch Seybold transdermal 00:00: topically - PATCH 00 every 7 Externa WEEKLY days l Montelukast 2023-0 2023- No [id number] 10mg Take 1 [facility] (SINGULAIR) 3-13 06-08 tablet (10 S eybold 10 MG oral 00:00: 00:00 mg total) - Tablet 00 :00 by mouth Externa tablet nightly l cloNIDine 2022-0 3- No [id number] 1{patch Apply 1 Chapis 0.2 MG/24HR 3-13 [...] mouth 2 l times daily cloNIDine 2022-0 3- No PLACE 0.2 Ke lsey 0.2 MG/24HR 1-23 03-13 MG (1 Seybol d transdermal 00:00: 00:00 PATCH) - PATCH 00 :00 TOPICALLY Externa WEEKLY ONCE l WEEKLY Irbesartan- 2022-0 2024- No 1{tbl} Take 1 K elsey [...] Zo Medica l NaCl 0.9% 10/07/20 at [facility] ch (NS) 50 mL 2230, 50 piggyback mL FENTanyl PF 2020- No 75ug 75 mcg, Un mohamud (SUBLIMAZE 10-08 Slow IV ity o f (PF)) 04:30: 04:15 Push, [place] injection 00 :00 ONCE, 1 Medical 75 mcg dose, Zo [place] 10/07/20 at 2230, Routine iohexol 2020- No 120mL 120 mL, Unive rs (OMNIPAQUE 10-08 Intravenou it y of 350 04:15: 04:15 s, ONCE, 1 [place] BULK-150 00 :00 dose, Zo Medica l mL) 10/07/20 at [place] injection 2215, 120 mL Routine HYDROcodone 2020- [...] dose, Zo Med ical 1:1:1 10/07/20 at [place] (FIRST-MOUT 0330, HWASH BLM) Routine oral suspension 15 mL INSULIN Yes 42U inject 42 Unive rs NPL/INSULIN 2-18 Units ity of LISPRO 07:01: under the [place] (HUMALOG 41 skin 2 Medical MIX 75-25 [...] by mouth ity of (HYGROTON) 07:01: daily. [place] 25 mg 41 Medical tablet Branch aspirin Yes 81mg Take 81 mg Univ ers (ADULT 2-18 by mouth ity of ASPIRIN 07:01: daily. [place] REGIMEN) 81 41 Medical mg EC Branch tablet escitalopra Yes 10mg Take 10 mg Univers m oxalate 2-18 by mouth ity of 10 mg 07:01: daily. [facility] 41 Medical Branch Fluticasone Yes 1{puff} Inhale 1 Univers -Salmeterol 2-18 Puff every it y of 100-50 07:01: 12 [place] mcg/dose 41 (twelve) Medical inhalation hours. Branch disk furosemide Yes 20mg Take 20 mg U nivers 20 mg 2-18 by mouth ity of tablet 07:01: daily. [address] Branch gabapentin Yes Take by Univ ers ER 300 mg 2-18 mouth ity of tablet, 07:01: daily. [place] extended Medical release 24 Branch hr losartan 50 Yes 50mg Take 50 mg Univers mg tablet 2-18 by mouth ity of 07:01: daily. [address] Branch KCL 10 mEq Yes 8meq Take 8 mEq U nivers tablet 2-18 by mouth ity of 07:01: daily. [address] Branch spironolact Yes 1{tbl} Take 1 [...] Branch daily with meals. ALBUTEROL Yes [facility]. [facility] SUL[facility] 2-18 ity of (PROAIR HFA 07:01: [place] INHALE) 41 Medical Branch amlodipine- Yes 1{capsu Take 1 Cap Univers benazepril 2-18 le} by mouth 2 ity of (LOTREL) 07:01: (two) [place] 5-20 mg per 41 times Medical capsule daily. Branch spironolact Yes 25mg Take 25 mg Univers one 2-18 by mouth ity of (SPIRONOLAC 07:01: daily. [facility] s TONE) 25 mg 41 Medical tablet Branch chlorthalid Yes 25mg Take 25 mg Univers one 2-18 by mouth ity of (HYGROTON) 07:01: daily. [place] 25 mg 41 Medical tablet Branch aspirin Yes 81mg Take 81 mg Univ ers (ADULT 2-18 by mouth ity of ASPIRIN 07:01: daily. [place] REGIMEN) 81 41 Medical mg EC Branch [...] by mouth ity of tablet 07:01: daily. [place] [address] Medical Branch gabapentin Yes Take by Univ ers ER 300 mg 2-18 mouth ity of tablet, 07:01: daily. [place] extended 41 Medical release 24 Branch hr losartan 50 Yes 50mg Take 50 mg Univers mg tablet 2-18 by mouth ity of 07:01: daily. [place] [address] Medical Branch KCL 10 mEq Yes 8meq Take 8 mEq U nivers tablet 2-18 by mouth ity of 07:01: daily. [place] [address] Medical Branch spironolact Yes 1{tbl} Take 1 Un mohamud one-hydroch 2-18 tablet by ity of lorothiazid 07:01: mouth [place] e 50-50 mg 41 daily. Medical per tablet Branch INSULIN Yes 42U inject 42 Unive rs NPL/INSULIN 2-18 Units ity of LISPRO 07:01: under the [place] (HUMALOG 41 skin 2 Medical MIX 75-25 (two) Branch [place]) times daily with meals. metFORMIN Yes 1000mg Take 1,000 Univers (GLUCOPHAGE 2-18 mg by ity of ) 500 mg 07:01: mouth 2 [place] tablet 41 (two) Medical times Branch daily with meals. ALBUTEROL Yes Inhale. Unive rs SULFATE 2-18 ity of (PROAIR HFA 07:01: [place] INHALE) 41 Medical Branch amlodipine- Yes 1{capsu [...] by mouth ity of (HYGROTON) 07:01: daily. [place] 25 mg 41 Medical tablet Branch aspirin [...] by mouth ity of tablet 07:01: daily. [place] [address] Medical Branch gabapentin Yes Take by [facility] ers ER 300 mg 2-18 mouth ity of tablet, 07:01: daily. [place] extended Medical release 24 Branch hr losartan 50 Yes 50mg Take 50 mg Univers mg tablet 2-18 by mouth ity of 07:01: daily. [place] [address] Medical Branch KCL 10 mEq Yes 8meq Take 8 mEq U nivers tablet 2-18 by mouth ity of 07:01: daily. [place] [address] Medical Branch spironolact Yes 1{tbl} Take 1 Un mohamud one-hydroch 2-18 tablet by ity of lorothiazid 07:01: mouth [place] e 50-50 mg 41 daily. Medical per tablet Branch INSULIN Yes 42U inject 42 [facility] rs NPL/INSULIN 2-18 Units ity of LISPRO 01:01: under the [place] (HUMALOG 41 skin 2 Medical MIX 75-25 (two) Branch [place]) times daily with meals. metFORMIN Yes 1000mg Take 1,000 Univers (GLUCOPHAGE 2-18 mg by ity of ) 500 mg 01:01: mouth 2 [place] tablet 41 (two) Medical times Branch daily with meals. ALBUTEROL Yes Inhale. [facility] rs SULFATE 2-18 ity of (PROAIR HFA [...] by mouth ity of (HYGROTON) 01:01: daily. [place] 25 mg 41 Medical tablet Branch aspirin Yes 81mg Take 81 mg Univ ers (ADULT 2-18 by mouth ity of ASPIRIN 01:01: daily. [place] REGIMEN) 81 41 Medical mg EC Branch tablet escitalopra Yes 10mg Take 10 mg Univers m oxalate 2-18 by mouth ity of 10 mg 01:01: daily. [place] tablet 41 Medical Branch Fluticasone Yes 1{puff} Inhale 1 Univers -Salmeterol 2-18 Puff every it y of 100-50 01:01: 12 [place] mcg/dose 41 (twelve) Medical inhalation hours. Branch disk furosemide Yes 20mg Take 20 mg U nivers 20 mg 2-18 by mouth ity of tablet 01:01: daily. [place] [address] Medical Branch gabapentin Yes Take by [facility] ers ER 300 mg 2-18 mouth ity of tablet, 01:01: daily. [place] extended Medical release 24 Branch hr losartan 50 Yes 50mg Take 50 mg Univers mg tablet 2-18 by mouth ity of 01:01: daily. [place] [address] Medical Branch KCL 10 mEq Yes 8meq Take 8 mEq U nivers tablet 2-18 by mouth ity of 01:01: daily. [place] [address] Medical Branch spironolact Yes 1{tbl} Take 1 Un mohamud one-hydroch 2-18 tablet by ity of lorothiazid 01:01: mouth [place] e 50-50 mg 41 daily. Medical per tablet Branch pantoprazol Yes [id number] 40mg Take 1 Univers e 2-18 tablet by ity of (PROTONIX) 00:00: mouth [place] 40 mg EC 00 daily. Medical tablet Branch dicyclomine Yes [id number] 20mg Take 1 Univers 20 mg 2-18 tablet by ity of tablet 00:00: mouth [place] 00 every 6 Medical (six) Branch hours as needed for Abdominal pain. pantoprazol Yes [id number] 40mg Take 1 Univers e 2-18 tablet by ity of (PROTONIX) 00:00: mouth [place] 40 mg EC 00 daily. Medical tablet Branch dicyclomine 2021-0 Yes [id number] 20mg Take 1 Univers 20 mg 2-18 tablet by ity of tablet 00:00: mouth [place] 00 every 6 Medical (six) Branch hours as needed for Abdominal pain. pantoprazol Yes [id number] 40mg Take 1 Univers e 2-18 tablet by ity of (PROTONIX) 00:00: mouth [place] 40 mg EC 00 daily. Medical tablet Branch dicyclomine 0 Yes [id number] 20mg Take 1 Univers 20 mg 2-18 tablet by ity of tablet 00:00: mouth [place] 00 every 6 Medical (six) Branch hours as needed for Abdominal pain. escitalopra Yes 10mg Take 10 mg Univers m oxalate 2-11 by mouth ity of 10 mg 14:26: daily. [place] tablet 58 Medical Branch Fluticasone Yes 1{puff} Inhale 1 Univers -Salmeterol 2-11 Puff every it y of 100-50 14:26: 12 [place] mcg/dose 58 (twelve) Medical inhalation hours. Branch disk furosemide Yes 20mg Take 20 mg U nivers 20 mg 2-11 by mouth ity of tablet 14:26: daily. [place] [address] Medical Branch gabapentin Yes Take by [facility] ers ER 300 mg 2-11 mouth ity of tablet, 14:26: daily. [place] extended Medical release 24 Branch hr losartan 50 Yes 50mg Take 50 mg Univers mg tablet 2-11 by mouth ity of 14:26: daily. [place] [address] Medical Branch KCL 10 mEq Yes 8meq Take 8 mEq U nivers tablet 2-11 by mouth ity of 14:26: daily. [place] [address] Medical Branch spironolact Yes 1{tbl} Take 1 Un mohamud one-hydroch 2-11 tablet by ity of lorothiazid 14:26: mouth [place] e 50-50 mg 58 daily. Medical per tablet Branch aspirin Yes 81mg Take 81 mg Univ ers (ADULT 2-11 by mouth ity of ASPIRIN 14:26: daily. [place] REGIMEN) 81 58 Medical mg EC Branch tablet escitalopra Yes 10mg Take 10 mg Univers m oxalate 2-11 by mouth ity of 10 mg 14:26: daily. [place] tablet 58 Medical Branch Fluticasone Yes 1{puff} Inhale 1 Univers -Salmeterol 2-11 Puff every it y of 100-50 14:26: 12 [place] mcg/dose 58 (twelve) Medical inhalation hours. Branch disk furosemide Yes 20mg Take 20 mg U nivers 20 mg 2-11 by mouth ity of tablet 14:26: daily. [place] [address] Medical Branch gabapentin Yes Take by Univ ers ER 300 mg 2-11 mouth ity of tablet, 14:26: daily. [place] extended 58 Medical release 24 Branch hr losartan 50 Yes 50mg Take 50 mg Univers mg tablet 2-11 by mouth ity of 14:26: daily. [place] [address] Medical Branch KCL 10 mEq Yes 8meq Take 8 mEq U nivers tablet 2-11 by mouth ity of 14:26: daily. [place] [address] Medical Branch spironolact Yes 1{tbl} Take 1 [...] 14:20: [place] INHALE) 29 Medical Branch amlodipine- 0 Yes 1{capsu Take 1 Cap Univers benazepril [...] by mouth ity of (HYGROTON) 14:20: daily. [place] 25 mg 29 Medical tablet Branch neomycin-po Yes PRN, [facility] s lymyxin-dex 2-11 Starting ity of amethasone 14:19: Zo [place] (MAXITROL) 00 09/30/20 at [facility] ical [address] [place] [address] mg/g-10,000 Until unit/g-0.1 Discontinu % ed, ophthalmic Routine, ointment Intra-op tetracaine Yes PRN, Univers (PONTOCAINE 2-11 Starting ity of ) 0.5 % 14:19: Zo [place] ophthalmic 00 09/30/20 at Med ical drops [address] Until Discontinu ed, Routine, Intra-op water for Yes PRN, Univers irrigation 2-11 Starting ity o f irrigation 14:18: Zo [place] solution 00 09/30/20 at Medic al [address] [place] [address] Until Discontinu ed, Routine, Intra-op gentamicin Yes PRN, Univers injection 2-11 Starting ity of 14:18: Zo [place] 09/30/20 at [facility] [address] [place] [address] Until Discontinu ed, ASHLEY, Intra-op EPINEPHrine 2021-0 Yes PRN, Univer s (PF) - Starting ity of 1:1,000 (1 14:17: Zo [place] mg/mL) 00 09/30/20 at [facility] (ADRENALIN 0817, [place] (PF)) Until injection Discontinu ed, Routine, Intra-op DUOVISC 0 Yes PRN, Univers (DUOVISC 09-30 Starting ity of VISCO 14:17: Zo [place] ELASTIC) 3 00 09/30/20 at [facility] ical %-4 %(0.5 0817, [place] mL) 1 % Until (0.55 mL) Discontinu intraocular ed, injection Routine, Intra-op dexamethaso Yes PRN, Univer s ne 09-30 Starting ity of (DECADRON 14:08: Zo [place] PHOSPHATE) 00 09/30/20 at [facility] ical injection 0808, [place] Until Discontinu ed, Routine, Intra-op balanced Yes PRN, Univers salt soln 09-30 Starting ity of no.2 irrig. 14:07: Zo [place] (BSS) 00 09/30/20 at [facility] ophthalmic 0807, [place] solution Until Discontinu ed, Routine, Intra-op eye block 0 Yes PRN, Univers syringe 11 09-30 Starting ity o f mL 14:00: Zo [place] 00 09/30/20 at [facility] 0800, [place] Until Discontinu ed, Intra-op propofoL IV 0 2020- No ONCE INTRA Univers infusion 09-30 PROCEDURE, ity of 13:58: 14:23 Starting [place] 00 :22 Zo [facility] 09/30/20 at [place] 0758, Until Zo 09/30/20 at 0823, Routine, Intra-op lidocaine 2020-0 2020- No ONCE INTRA U nivers 1% 09-30 PROCEDURE, ity of (XYLOCAINE) 13:58: 14:23 Starting [place] 100 mg/10 00 :22 Zo [facility] mL (1 %) 09/30/20 at [facility] h injection 0758, Until Zo 09/30/20 at 0823, Routine, Intra-op albuterol 2020-0 2020- No ONCE INTRA U nivers (VENTOLIN) 09-30 PROCEDURE, it y of inhaler 13:56: 14:23 Starting [place] 00 :22 Zo Medical 09/30/20 at Branch 0756, Until Zo 09/30/20 at 0823, Routine, Intra-op midazolam 2020- No ONCE INTRA U nivers (VERSED) 09-30 PROCEDURE, ity of injection 13:53: 14:23 Starting [place] 00 :22 Zo Medical 09/30/20 at Branch 0753, Until Zo 09/30/20 at 0823, Routine, Intra-op lactated 2020-2020- No CONTINUOUS Un mohamud ringers IV 09-30 [...] Medical times Branch daily with meals. amlodipine- 2021-0 Yes 1{capsu Take 1 Cap Univers benazepril 2-09 le} by mouth 2 ity of (LOTREL) 19:58: (two) [place] 5-20 mg per 09 times Medical capsule daily. Branch losartan 50 Yes 50mg Take 50 mg Univers mg tablet 2-05 by mouth ity of 21:47: daily. [place] 58 Medical Branch KCL 10 mEq Yes 8meq Take 8 mEq U nivers tablet 2-05 by mouth ity of 21:47: daily. [place] 58 Medical Branch spironolact Yes 1{tbl} Take 1 Un mohamud one-hydroch 2-05 tablet by ity of lorothiazid 21:47: mouth [place] e 50-50 mg 58 daily. Medical per tablet Branch aspirin Yes 81mg Take 81 mg Univ ers (ADULT 2-05 by mouth ity of ASPIRIN 21:47: daily. [place] REGIMEN) 81 57 Medical mg EC Branch tablet escitalopra Yes 10mg Take 10 mg Univers m oxalate 2-05 by mouth ity of 10 mg 21:47: daily. [place] tablet 57 Medical Branch Fluticasone Yes 1{puff} Inhale 1 Univers -Salmeterol 2-05 Puff every it y of 100-50 21:47: 12 [place] mcg/dose 57 (twelve) Medical inhalation hours. Branch disk furosemide Yes 20mg Take 20 mg U nivers 20 mg 2-05 by mouth ity of tablet 21:47: daily. [place] [address] Medical Branch gabapentin Yes Take by Univ ers ER 300 mg 2-05 mouth ity of tablet, 21:47: daily. [place] extended 57 Medical release 24 Branch hr ALBUTEROL Yes [facility]. [facility] SUL[facility] 3-11 ity of (PROAIR HFA 13:13: [place] INHALE) 00 Medical Branch desloratadi Yes 5mg Take 1 Tab Univers ne 3-11 by mouth ity of (CLARINEX 00:00: daily. [place] REDITAB) 5 00 Medical mg Branch disintegrat ing tablet desloratadi Yes 5mg Take 1 Tab Univers ne 3-11 by mouth ity of (CLARINEX 00:00: daily. [place] REDITAB) 5 00 Medical mg Branch disintegrat [...] 10 mg 00:00: [place] tablet 00 Medical [place] montekast 0 Yes Univer s (SINGULAIR) 1-06 ity of 10 mg 00:00: [place] tablet 00 Medical [place] montelukast 0 Yes Univer s (SINGULAIR) 1-06 ity of 10 mg 00:00: [place] tablet 00 Medical [place] montekast 0 Yes Univer s (SINGULAIR) 1-06 ity of 10 mg 00:00: [place] tablet 00 Medical [place] montelukast 0 Yes Univer s (SINGULAIR) 1-06 ity of 10 mg 00:00: [place] tablet 00 Medical Branch montelukast 0 Yes Univer s (SINGULAIR) 1-06 ity of 10 mg 00:00: [place] tablet 00 Medical [place] montelukast 0 Yes Univer s (SINGULAIR) 1-06 ity of 10 mg 00:00: [place] tablet 00 Medical Branch BD INSULIN 0 Yes Univers PEN NEEDLE 8-05 ity of UF 31 X 00:00: [place] 01/02" Ndle 00 Medical Branch BD INSULIN [...] by mouth ity of (SPIRONOLAC 21:31: daily. [place] s TONE) 25 mg 46 Medical tablet [...] mL by ity of hen 00:00: mouth [place] (LORTAB) 00 every 4 Medical 7.5-500 (four) Branch mg/15 mL(15 hours as mL) needed for solution Pain. hydrocodone 2011-0 Yes 10mL Take 10-15 Univers -acetaminop 4-04 mL by ity of hen 00:00: mouth [place] (LORTAB) 00 every 4 Medical 7.5-500 (four) [...] subcutaneo al s pen s pen us [facility] injector injector injector Out reac 0.5 ML [...] al MOUTH TWICE MOUTH TWICE TABLET BY [facility] DAILY WITH DAILY WITH MOUTH Ou treac MEALS MEALS TWICE h DAILY WITH Program MEALS Immunizations Ordered Immunization Filled Immunization Date Status Commen ts Source Name Name Tdap- (Boostrix, 2022-12-18 Completed [facility] romerobohima Adacel) 00:00:00 - External Tdap- (Boostrix, 2022-12-18 Completed [facility] romerobold Adacel) 00:00:00 - External Tdap- (Boostrix, 2022-12-18 Completed [facility] Belle eybold Adacel) 00:00:00 - External Tdap- (Boostrix, 2022-12-18 Completed [facility] Belle eybold Adacel) 00:00:00 - External Tdap- (Boostrix, 2022-12-18 Completed [facility] romerobohima Adacel) [...] - External Influenza Virus 2022-05-27 Completed Chapis ybold Vaccine, Quad, Egg 00:00:00 - Exte [...] Ex ternal Formulation Influenza Virus 2020-04-06 Completed Chapsi Se ybold Vaccine, Unspecified 00:00:00 - Ex [...] months and up Influenza, Seasonal, 2019-05-08 Completed Muan ey Seybold Injectable, 00:00:00 - External Preservative [...] Heart rate 2023-02-13 18:14:00 55 /min Chap[facility] romerobohima - External Body temperature 2023-02-13 18:14:00 36.67 [...] Body weight 2022-12-18 18:39:00 124.739 kg [facility] Belle eybold - External BMI 2022-12-18 18:39:00 50.30 kg/m2 Chapis S eybold - External Oxygen saturation in 2022-12-18 18:39:00 95 /min Chapis Ilianatavon - Arterial blood by [...] saturation in 2022-12-05 18:38:00 98 /min Chapis Canoybold - Arterial blood by External Pulse oximetry [...] saturation in 2022-10-30 18:34:00 96 /min Chapis Cornelius - Arterial blood by External Pulse oximetry BP Diastolic 2020-12-07 00:00:00 95 mm[Hg] [place] [facility] Height 2020-12-07 00:00:00 62 [in_i] [place] [facility] BMI (Body Mass 2020-12-07 00:00:00 53.4 kg[facility]m2 [facility] BP Systolic 2020-12-07 00:00:00 169 mm[Hg] [place] [facility] Body Weight 2020-12-07 00:00:00 292 [lb_av] [place] [facility] Systolic blood 2020-10-08 09:00:00 184 mm[Hg] Aaliyah sitjose of pressure [facility] Diastolic blood 2020-10-08 09:00:00 68 mm[Hg] Unive rsity of pressure [facility] Heart rate 2020-10-08 09:00:00 73 /min [facility] [place] [facility] Respiratory rate 2020-10-08 09:00:00 16 /min Univ ersity [facility] [place] [facility] Oxygen saturation in 2020-10-08 09:00:00 97 /min University of Arterial blood by [facility] Pulse oximetry Branch Body temperature 2020-10-08 03:15:00 37.44 Mariaa Univ ersity [facility] [place] [facility] Body height 2020-10-08 03:15:00 160 cm [facility] [place] [facility] Body weight 2020-10-08 03:15:00 136.079 kg [facility] [place] [facility] BMI 2020-10-08 03:15:00 53.14 kg/m2 [facility] [place] [facility] Systolic blood 2020-10-08 09:00:00 184 mm[Hg] Univer sity of pressure [place] [facility] Diastolic blood 2020-10-08 09:00:00 68 mm[Hg] Unive rsity of pressure [place] [facility] Heart rate 2020-10-08 09:00:00 73 /min [facility] [place] [facility] Respiratory rate 2020-10-08 09:00:00 16 /min Univ ersity [facility] [place] [facility] Oxygen saturation in 2020-10-08 09:00:00 97 /min University of Arterial blood by [facility] Pulse oximetry Branch Body temperature 2020-10-08 03:15:00 37.44 Mariaa Univ ersity [facility] [place] [facility] Body height 2020-10-08 03:15:00 160 cm [facility] [place] [facility] Body weight 2020-10-08 03:15:00 136.079 kg [facility] [place] [facility] BMI 2020-10-08 03:15:00 53.14 kg/m2 [facility] [place] [facility] Systolic blood 2020-10-07 11:00:00 198 mm[Hg] Univer sity of pressure [place] [facility] Diastolic blood 2020-10-07 11:00:00 89 mm[Hg] Unive rsity of pressure [place] [facility] Heart rate 2020-10-07 11:00:00 70 /min [facility] [place] [facility] Respiratory rate 2020-10-07 11:00:00 13 /min Univ ersity [facility] [place] [facility] Oxygen saturation in 2020-10-07 11:00:00 99 /min University of Arterial blood by [facility] Pulse oximetry Branch Body temperature 2020-10-07 06:50:00 37.39 Mariaa Univ ersity [facility] [place] [facility] Body weight 2020-10-07 06:50:00 136.079 kg [facility] [place] [facility] BMI 2020-10-07 06:50:00 54.87 kg/m2 [facility] [place] [facility] Systolic blood 2020-10-07 11:00:00 198 mm[Hg] Univer sity of pressure [place] [facility] Diastolic blood 2020-10-07 11:00:00 89 mm[Hg] Unive rsity of pressure [place] [facility] Heart rate 2020-10-07 11:00:00 70 /min [facility] [place] [facility] Respiratory rate 2020-10-07 11:00:00 13 /min Univ ersity [facility] [place] [facility] Oxygen saturation in 2020-10-07 11:00:00 99 /min University of Arterial blood by [facility] Pulse oximetry Branch Body temperature 2020-10-07 06:50:00 37.39 Mariaa Univ [facility] [place] [facility] Body weight 2020-10-07 06:50:00 136.079 kg [facility] [place] [facility] BMI 2020-10-07 06:50:00 54.87 kg/m2 [facility] [place] [facility] Systolic blood 2020-09-30 14:45:00 225 mm[Hg] Univer sity of pressure [place] [facility] Diastolic blood 2020-09-30 14:45:00 97 mm[Hg] Unive rsity of pressure [place] [facility] Heart rate 2020-09-30 14:45:00 63 /min [facility] [place] [facility] Body temperature 2020-09-30 14:45:00 36.67 Mariaa [facility] [place] [facility] Respiratory rate 2020-09-30 14:45:00 18 /min Univ ersity [facility] [place] [facility] Oxygen saturation in 2020-09-30 14:45:00 97 /min University of Arterial blood by [facility] Pulse oximetry Branch Body height 2020-09-28 19:45:00 157.5 cm [facility] [place] [facility] Body weight 2020-09-28 19:45:00 136.079 kg [facility] [place] [facility] BMI 2020-09-28 19:45:00 54.87 kg/m2 [facility] Systolic blood 2020-09-30 14:45:00 225 mm[Hg] Univer sity of pressure [facility] Diastolic blood 2020-09-30 14:45:00 97 mm[Hg] Unive rsity of pressure [facility] Heart rate 2020-09-30 14:45:00 63 /min [facility] Body temperature 2020-09-30 14:45:00 36.67 Mariaa [facility] 2020-09-30 14:45:00 18 /min [facility] Oxygen saturation in 2020-09-30 14:45:00 97 /min [facility] Arterial blood by [facility] Pulse oximetry [place] Body height 2020-09-28 19:45:00 157.5 cm [facility] Body weight 2020-09-28 19:45:00 136.079 kg [facility] BMI 2020-09-28 19:45:00 54.87 kg/m2 [facility] Respiratory rate 2020-09-30 14:21:00 25 /min [facility] Respiratory rate 2020-09-30 14:21:00 25 /min [facility] Procedures Procedure Date / Time Performing Source Performed Clinician REAGENT STRIP/BLOOD GLUCOSE 2023-02-13 Outside, Reported Jesse zamoranoheather Adryan - 00:00:00 External AUTHORIZATION FOR RELEASE OF 2022-10-03 Doctor Unassigned, [facility] PHI 06:01:00 [place] [facility] MAMMO, screening, digital, 2020-12-07 [place] [facility] bilateral 00:00:00 [facility] URINALYSIS 2020-10-08 Mago Cobb [facility] [place] 06:13:[address] [facility] [address] ABDOMEN PELVIS W CONTRAST 2020-10-08 Mago Cobb [facility] 04:13:45 Medical Branch LIPASE 2020-10-08 Mago Cobb [facility] ex 03:39:00 [facility] TROPONIN I 2020-10-08 Mago Cobb [facility] ex 03:39:00 Medical Branch COMP. METABOLIC PANEL ([id number]) 2020-10-08 Mago Cobb [facility] 03:39:00 Medical Branch CBC WITH DIFF 2020-10-08 Mago oCbb [facility] ex 03:39:00 Medical Branch COVID-19 (ID NOW RAPID 2020-10-[address] [facility] TESTING) 03:39:00 Medical Branch CONSENT/REFUSAL FOR DIAGNOSIS 2020-10-08 Doctor Unassigned, [facility] AND TREATMENT 02:53:27 [place] [facility] TROPONIN I 2020-10-07 Mago Cobb [facility] 10:05:00 Medical Branch URINALYSIS 2020-10-07 Roger Cobbchris [facility] 08:06:00 Medical Branch XR CHEST 1 VW 2020-10-07 Mago Cobb [facility] ex 07:56:15 Medical Branch [facility]ASE [facility] 07:[facility] Branch TROPONIN I 2020-10-07 [facility] 07:38:00 Medical Branch COMP. METABOLIC PANEL ([id number]) 2020-10-07 Mago Cobb [facility] 07:38:00 Medical Branch CBC WITH DIFF 2020-10-07 Mago Cobb [facility] ex 07:38:00 Medical Branch NOTICE OF PRIVACY PRACTICES 2020-10-07 Doctor Unassigned, [facility] 06:41:28 [place] [facility] PHACOEMULSIFICATION OF 2020-09-30 Amarilis [facility] CATARACT WITH INTRAOCULAR 13:48:00 Brian Kelly [facility] LENS IMPLANT POCT GLUCOSE(AGE >30DAYS) 2020-09-30 Eliazar Nicolas [facility] 13:36:00 Medical Branch POCT GLUCOSE (AUTOMATED) 2020-09-30 Amarilis [facility] 13:31:00 Brian [facility] DAY SURGERY - ADC 2020-09-30 Doctor Unassigned, [facility] 06:01:00 [place] [facility] COVID-19 (ID NOW RAPID 2020-09-29 Miguel Lara [facility] TESTING) 15:54:00 Brian Medical Branch section Gary Gongora n Thyroidectomy [facility] Varicose phlebectomy [facility] Plan of Care Planned Activity Planned Date Details Comments Source Future Scheduled 2023-03-23 BREAST CANCER [facility] Test 04:11:53 SCREENING [code = BREAST CANCER SCREENING] Future Scheduled 2023-03-23 Screening for [facility] Test 04:11:53 malignant neoplasm of colon (procedure) [code = 997108975] Future Scheduled 2023-03-23 Screening for [facility] Test 04:11:53 malignant neoplasm of colon (procedure) [code = 555946873] Future Scheduled 2023-03-23 SHINGLES VACCINES (2 [facility] 04:11:53 of 3) [code = SHINGLES VACCINES (2 of 3)] Future Scheduled 2023-03-23 COVID-19 VACCINE ([facility] 04:11:53 Moderna series) [code = COVID-19 VACCINE (2 - Moderna series)] Future Scheduled 2023-03-23 [facility]ACCINE [facility] 04:11:53 [code = INFLUENZA VACCINE] Future Scheduled 2023-03-23 Screening for [facility] Test 04:11:53 malignant neoplasm of colon (procedure) [code = 405538063] Future Scheduled 2023-03-23 Screening for [facility] Test 04:11:53 malignant neoplasm of colon (procedure) [code = 072407371] Future Scheduled 2023-03-23 Screening for [facility] Test 04:11:53 malignant neoplasm of colon (procedure) [code = 683559344] Future Scheduled 2023-03-23 Screening for [facility] Test 04:11:53 malignant neoplasm of cervix (procedure) [code = 274167772] Future Scheduled 2023-02-08 COVID-19 VACCINE ([facility] - [facility] 09:46:12 Moderna series) [code = COVID-19 VACCINE (2 - Moderna series)] Future Scheduled 2023-02-08 [facility]INE [facility] 09:46:12 [code = INFLUENZA VACCINE] Future Scheduled 2023-02-08 Screening for [facility] Test 09:46:12 malignant neoplasm of colon (procedure) [code = 944594461] Future Scheduled 2023-02-08 Screening for [facility] Test 09:46:12 malignant neoplasm of colon (procedure) [code = 650776127] Future Scheduled 2023-02-08 Screening for [facility] Test 09:46:12 malignant neoplasm of colon (procedure) [code = 288380119] Future Scheduled 2023-02-08 Screening for [facility] Test 09:46:12 malignant neoplasm of cervix (procedure) [code = 408136043] Future Scheduled 2023-02-08 BREAST CANCER [facility] Test 09:46:12 SCREENING [code = BREAST CANCER SCREENING] Future Scheduled 2023-02-08 Screening for [facility] Test 09:46:12 malignant neoplasm of colon (procedure) [code = 619170726] Future Scheduled 2023-02-08 Screening for [facility] Test 09:46:12 malignant neoplasm of colon (procedure) [code = 822567277] Future Scheduled 2023-02-08 SHINGLES VACCINES (2 Met [facility] Test 09:46:12 of 3) [code = SHINGLES VACCINES (2 of 3)] Future Scheduled 2022-12-27 Screening for [facility] Test 11:36:12 malignant neoplasm of cervix (procedure) [code = 128455555] Future Scheduled 2022-12-27 BREAST CANCER [facility] Test 11:36:12 SCREENING [code = BREAST CANCER SCREENING] Future Scheduled 2022-12-27 COLONOSCOPY SCREENING [facility] Test 11:36:12 [code = COLONOSCOPY SCREENING] Future Scheduled 2022-12-27 SHINGLES VACCINES (2 Met [facility] Test 11:36:12 of 3) [code = SHINGLES VACCINES (2 of 3)] Future Scheduled 2022-12-27 COVID-19 VACCINE (2 - [facility] Test 11:36:12 Moderna series) [code = COVID-19 VACCINE (2 - Moderna series)] Future Scheduled 2022-12-27 INFLUENZA VACCINE Method [facility] Test 11:36:12 [code = INFLUENZA VACCINE] Diagnostic Test 2020-12-07 bacterial vaginosis [place] Pending 00:00:00 panel, vaginal [code [facility] = bacterial vaginosis [facility] panel, vaginal] Diagnostic Test 2020-12-07 pap, IG + HPV, [place] Pending 00:00:00 cervical [code = pap, [facility] IG + HPV, cervical] Outreach Program Future Scheduled COVID-19 [facility]ACCINE (1) [facility] [code = COVID-19 VACCINE (1)] Future Scheduled Screening for [facility] Test malignant neoplasm of cervix (procedure) [code = 298304344] Future Scheduled BREAST CANCER [facility] Test SCREENING [code = BREAST CANCER SCREENING] Future Scheduled [facility]OSCOPY [facility] [code = COLONOSCOPY SCREENING] Future Scheduled SH[facility]LES VACCINES [facility] (#1) [code = SHINGLES VACCINES (#1)] Future Scheduled IN[facility]ZA VACCINE [facility] [code = INFLUENZA VACCINE] Encounters Start End Encounter Admission Attending Care Care Encounter Source Date/Time Date/Time Type Type Clinicians Facility Department ID 2021-06-19 Outpatient Nilson LARA MASAJAN OPH [id number] Univers 12:22:23 [facility] 2021-06-19 Emergency X [facility] [id number] Univers 00:01:[address] [facility] 2021-06-18 Outpatient Nilson LARA MASAJAN SWETA [id number] Univers 21:15:[address] [facility] 2023-07-11 2023-07-11 Outpatient CHAPIS PORRAS [id number] [facility] 14:15:00 14:15:00 QUOCDAI Seybol d 2023-06-13 2023-06-13 Outpatient CHAPIS NAVARRO [id number] [facility] 10:30:00 10:30:00 JALAMICHELLE Seybol d 2023-06-05 2023-06-05 Outpatient CHAPIS PIPER [id number] [facility] 08:20:00 08:20:00 HAYDEN Seybol d 2023-05-10 2023-05-10 Outpatient CHAPIS CRAIN [id number] [facility] 09:50:00 09:50:00 JACK Seybol d 2023-04-27 2023-04-27 Outpatient CHAPIS MCMAHON [id number] [facility] 09:30:00 09:30:00 POLA Seybol d 2023-03-30 2023-03-30 Outpatient CHAPIS MCMAHON [id number] [facility]is 00:00:00 00:00:00 POLA Seybol d 2023-03-26 2023-03-26 Outpatient PREZAYoshi, CHAPIS ANN [id number] Chapis 00:00:00 00:00:00 POLA Seybol d 2023-03-26 2023-03-26 Outpatient PREZAS, CHAPIS ANN [id number] [facility] 00:00:00 00:00:00 POLA Seybol d 2023-03-06 2023-03-06 Outpatient AHMED, CHAPIS ANN [id number] [facility]is 00:00:00 00:00:00 MOHAMMED Seybo ld 2023-03-04 2023-03-04 Outpatient PREZAYoshi, CHAPIS ANN [id number] Chapis 00:00:00 00:00:00 POLA Seybol d 2023-03-02 2023-03-02 Outpatient LAB90 CHAPIS ANN [id number] Chapis 10:50:00 10:50:00 Seybol d 2023-02-28 2023-02-28 Outpatient CHAPIS ANN [id number] Chapis 00:00:00 00:00:00 Seybol d 2023-02-23 2023-02-23 Outpatient PREZASCHAPIS [id number] Chapis 00:00:00 00:00:00 POLA Seybol d 2023-02-23 2023-02-23 Outpatient CHAPIS ANN [id number] Chapis 00:00:00 00:00:00 Seybol d 2023-02-22 2023-02-22 Outpatient HECTOR FLORES [id number] Chapis 16:15:00 16:15:00 Seybol d 2023-02-22 2023-02-22 Outpatient LAB90 CHAPIS ANN [id number] Chapis 15:40:00 15:40:00 Seybol d 2023-02-22 2023-02-22 Outpatient PREZAS, CHAPIS ANN [id number] Chapis 00:00:00 00:00:00 POLA Seybol d 2023-02-22 2023-02-22 Outpatient PREZASCHAPIS [id number] Chapis 00:00:00 00:00:00 POLA Seybol d 2023-02-22 2023-02-22 Outpatient CHAPIS ANN [id number] Chapis 00:00:00 00:00:00 Seybol d 2023-02-22 2023-02-22 Outpatient PREZAS, CHAPIS ANN [id number] Chapis 00:00:00 00:00:00 POLA Seybol d 2023-02-19 2023-02-19 Outpatient PREZAS, CHAPIS ANN [id number] Chapis 00:00:00 00:00:00 POLA Seybol d 2023-02-16 2023-02-16 Outpatient CHRISTINE, CHAPIS ANN [id number] Chapis 00:00:00 00:00:00 KD Seybol d 2023-02-14 2023-02-14 Outpatient PREZAS, CHAPIS ANN [id number] Chapis 00:00:00 00:00:00 POLA Seybol d 2023-02-13 2023-02-13 Outpatient LAB47 CHAPIS ANN [id number] Chapis 14:15:00 14:15:00 Seybol d 2023-02-13 2023-02-13 Outpatient KING, CHAPIS ANN [id number] Chapis 13:30:00 13:30:00 ROBERTO Seybol d 2023-02-08 2023-02-08 Outpatient PARASCHAPIS TREVIÑO [id number] Chapis 10:20:00 10:20:00 JACK Seybol d 2023-01-30 2023-01-30 Outpatient PARASCHAPIS [id number] Chapsi 10:30:00 10:30:00 JACK Seybol d 2023-01-29 2023-01-29 Outpatient PREZAS, CHAPIS ANN [id number] Chapis 00:00:00 00:00:00 POLA Seybol d 2023-01-29 2023-01-29 Outpatient PREZAS, CHAPIS ANN [id number] Chapis 00:00:00 00:00:00 POLA Seybol d 2023-01-27 2023-01-27 Outpatient PREZASCHAPIS [id number] Chapis 00:00:00 00:00:00 POLA Seybol d 2023-01-25 2023-01-25 Outpatient LAB90 CHAPIS ANN [id number] Chapis 10:45:00 10:45:00 Seybol d 2023-01-25 2023-01-25 Outpatient PREZAS, CHAPIS ANN [id number] Chapis 10:00:00 10:00:00 POLA Seybol d 2023-01-23 2023-01-23 Outpatient KING, CHAPIS ANN [id number] Chapis 14:15:00 14:15:00 ROBERTO Seybol d 2023-01-23 2023-01-23 Outpatient AHMED, CHAPIS ANN [id number] Chapis 00:00:00 00:00:00 MOHAMMED Seybo ld 2023-01-18 2023-01-18 Outpatient PREZACHAPIS Belle [id number] Chapis 00:00:00 00:00:00 POLA Seybol d 2023-01-18 2023-01-18 Outpatient PREZAS, CHAPIS ANN [id number] Chapis 00:00:00 00:00:00 POLA Seybol d 2023-01-18 2023-01-18 Outpatient PREZASCHAPIS [id number] Chapis 00:00:00 00:00:00 POLA Seybol d 2023-01-07 2023-01-07 Outpatient PREZASCHAPIS [id number] Chapis 00:00:00 00:00:00 POLA Seybol d 2023-01-04 2023-01-04 Outpatient LAB90 CHAPIS ANN [id number] Chapis 09:00:00 09:00:00 Seybol d 2023-01-04 2023-01-04 Outpatient PREZASCHAPIS [id number] Chapis 08:15:00 08:15:00 POLA Seybol d 2023-01-04 2023-01-04 Outpatient PREZASCHAPIS [id number] Chapis 00:00:00 00:00:00 POLA Seybol d 2023-01-04 2023-01-04 Outpatient CHAPIS ANN [id number] Chapis 00:00:00 00:00:00 Seybol d 2023-01-01 2023-01-01 Outpatient CHAPIS AZUL [id number] Chapis 00:00:00 00:00:00 KAYLIE Seybol d 2023-01-01 2023-01-01 Outpatient CHAPIS ANN [id number] Chapis 00:00:00 00:00:00 Seybol d 2022-12-28 2022-12-28 Outpatient CHAPIS AZUL [id number] Chapis 10:00:00 10:00:00 JINU Seybol d 2022-12-28 2022-12-28 Outpatient [facility] [id number] 00[facility]00:00 SSA 10645 da [facility] 2022-12-27 2022-12-27 Outpatient PRECHAPIS OHARA [id number] Chapis 00:00:00 00:00:00 POLA Seybol d 2022-12-25 2022-12-25 Outpatient CHAPIS AZUL [id number] Chapis 00:00:00 00:00:00 JINU Seybol d 2022-12-25 2022-12-25 Outpatient CHAPIS MCMAHON [id number] Chapis 00:00:00 00:00:00 POLA Seybol d 2022-12-24 2022-12-24 Outpatient PREZACHAPIS Belle [id number] Chapis 00:00:00 00:00:00 POLA Seybol d 2022-12-21 2022-12-21 Outpatient FB, TECH CHAPIS ANN [id number] Chapis 14:00:00 14:00:00 Seybol d 2022-12-20 2022-12-20 Outpatient JIMMIECHAPIS [id number] Chapis 00:00:00 00:00:00 JEAN CARLOS Seybo ld 2022-12-18 2022-12-18 Outpatient PRECHAPIS OHARA [id number] Chapis 13:45:00 13:45:00 POLA Seybol d 2022-12-11 2022-12-11 Outpatient PREZACHAPIS Belle [id number] Chapis 00:00:00 00:00:00 POLA Seybol d 2022-12-11 2022-12-11 Outpatient JIMMIE, CHAPIS ANN [id number] Chapis 00:00:00 00:00:00 JEAN CARLOS Seybo ld 2022-12-06 2022-12-06 Outpatient PREZAS, CHAPIS ANN [id number] Chapis 00:00:00 00:00:00 POLA Seybol d 2022-12-06 2022-12-06 Outpatient PREZAS, CHAPIS ANN [id number] Chapis 00:00:00 00:00:00 POLA Seybol d 2022-12-05 2022-12-05 Outpatient JIMMIE, CHAPIS ANN [id number] Chapis 14:00:00 14:00:00 JEAN CARLOS Seybo ld 2022-12-05 2022-12-05 Outpatient MYKELSEYONL CHAPIS ANN [id number] Chapis 00:00:00 00:00:00 MD RAJ Seybol d 2022-12-05 2022-12-05 Outpatient NAVARRO, CHAPIS ANN [id number] Chapis 00:00:00 00:00:00 SYLVIA Seybol d 2022-12-01 2022-12-01 Outpatient LATHA, CHAPIS ANN [id number] Chapis 10:30:00 10:30:00 JINU Seybol d 2022-11-22 2022-11-22 Outpatient JIMMIE, CHAPIS ANN [id number] Chapis 10:00:00 10:00:00 JEAN CARLOS Seybo ld 2022-11-21 2022-11-21 Outpatient CHAPIS ANN [id number] Chapis 13:45:00 13:45:00 Seybol d 2022-11-20 2022-11-20 Outpatient PREZAS, CHAPIS ANN [id number] Chapis 13:45:00 13:45:00 POLA Seybol d 2022-11-20 2022-11-20 Outpatient PREZAYoshi, CHAPIS ANN [id number] Chapis 00:00:00 00:00:00 POLA Seybol d 2022-11-14 2022-11-14 Outpatient PREZAS, CHAPIS ANN [id number] Chapis 00:00:00 00:00:00 POLA Seybol d 2022-11-13 2022-11-13 Outpatient LATHA CHAPIS ANN [id number] Chapis 10:00:00 10:00:00 JINU Seybol d 2022-11-13 2022-11-13 Outpatient TRED45 CHAPIS ANN [id number] Chapis 10:00:00 10:00:00 Seybol d 2022-11-10 2022-11-10 Outpatient LAB90 CHAPIS ANN [id number] Chapis 11:05:00 11:05:00 Seybol d 2022-11-09 2022-11-09 Outpatient CHAPIS MCMAHON [id number] Chapis 00:00:00 00:00:00 POLA Seybol d 2022-10-30 2022-10-30 Outpatient CHAPIS MCMAHON [id number] Chapis 13:45:00 13:45:00 POLA Seybol d 2022-10-26 2022-10-26 Outpatient LISANDRO CHAPIS ANN [id number] Chapis 00:00:00 00:00:00 POLA Seybol d 2022-10-03 2022-10-03 Orders Doctor ROBERT [id number] Univers 00:00:00 00:00:00 Only Unassigned, ELIESER 350.1.13.10 ity of [place] [facility] 4.2.7.2.686 [place] as [id number] [address] 2022-01-24 2022-01-24 Outpatient Nilson [facility] [id number] Univers 14:30:00 14:30:[address] [facility] 2021-03-02 2021-03-02 Outpatient JESU URBINA [id number] [place] 02:42:00 02:42:00 [id number] da [facility] Program 2020-12-08 2020-12-08 Outpatient Nilson LARA [facility] [id number] Univers 10:45:00 10:45:[address] [facility] 2020-12-07 2020-12-07 Outpatient ELY_KOKO URBINA [facility] [id number] [place] 01:00:00 01:00:00 [id number] [facility] 2020-12-07 2020-12-07 Koko URBINA [place] - [id number] M [place] 00:00:00 00:00:00 Kendell Henning MD: Confucianism [facility] [address] [facility] [place] [facility] [place] [facility] [address] h , Ph. Program 2020-11-18 2020-11-18 Outpatient ELY_KOKO URBINA [facility] [id number] [place] 11:13:00 11:13:00 [id number] [facility] 2020-11-17 2020-11-17 Outpatient ELY_KOKO URBINA [facility] [id number] [place] 04:26:00 04:26:00 [id number] [facility] 2020-10-07 2020-10-08 Emergency [facility] [id number] Univers 21:06:00 03:35:00 Mago Patiñoton 350.1.13.10 ity of [place] 4.2.7.2.6 [facility] [id number] [address] 2020-10-07 2020-10-08 [facility] [id number] 21:06:00 03:35:00 Mago Patiñoton 350.1.13.[address] [place] [address] [place] [address] [id number] [facility] 2020-10-07 2020-10-07 [facility] [id number] Univers 01:01:00 06:15:00 Mago Patiñoton 350.1.13.10 ity of [place] 4.2.7.2.6 [facility] [id number] [address] 2020-10-07 2020-10-07 Emergency X [facility] [id number] Univers 01:01:00 06:15:00 MAGO ity of [facility] 2020-10-07 2020-10-07 Emergency [facility] [id number] 01:01:00 06:15:00 Mago Case 350.1.13.10 [place] 4.2.7.2.686 [place] [id number] [facility] 2020-09-30 2020-09-30 [facility] 1.2.840.114 [id number] [facility] 07:01:00 09:00:00 Encounter Miguel Patiñoton 350.1.13.10 ity of [place] [id number] [address] 2020-09-30 2020-09-30 [facility] 1.2.840.114 [id number] 07:01:00 09:00:00 Encounter Miguel Manpreet 350.1.13.10 [place] 4.2.7.2.686 Surgical [phone] [place] [address] 2020-09-30 2020-09-30 Anesthesia Eliazar Nicolas [facility] 1.2.840.11 [id number] [facility] 07:53:00 08:23:00 Michael Ryan 350.1.13.10 [place] [phone] [address] 2020-09-30 2020-09-30 Anesthesia Eliazar Nicolas [facility] 1.2.840.11 [id number] 07:53:00 08:23:00 Michael Ryan 350.1.13.10 [place] 4.2.7.2.686 Surgical [phone] [place] [address] 2020-09-30 2020-09-30 Orders Doctor JONES 1.2.840.114 [id number] Univers 00:00:00 00:00:00 Only Unassigned, ELIESER 350.1.13.10 ity of [place] [facility] 4.2.7.2.686 [place] [phone] [address] 2020-09-30 2020-09-30 Orders Doctor ROBERT 1.2.840.114 [id number] 00:00:00 00:00:00 Only Unassigned, ELIESER 350.1.13.10 [place] [facility] 4.2.7.2.686 [id number] 009 2020-09-29 2020-09-29 Laboratory Only, [facility] Test [facility] 1.2.840. 114 [id number] Univers 09:40:08 09:55:08 Only Miguel Lara 350.1.1 3.10 [facility] 4.2.7.2.686 [facility] [phone] [facility] [address] 2020-09-29 2020-09-29 Laboratory Only, [facility] 1.2.840.114 [id number] 09:40:08 09:55:08 Only Test Manpreet 350.1.13.10 [place] 4.2.7.2.686 [place] [id number] 353 2020-09-29 2020-09-29 Outpatient Nilson LARA [facility] [id number] Univers 09:15:00 09:15:[address] [facility] 2020-09-21 2020-09-21 Outpatient Nilson LARA [facility] [id number] Univers 11:15:00 11:15:[address] [facility] 2020-07-07 2020-07-[address] [facility] [place] 02:18:00 02:18:00 [id number] 2018-07-08 2018-07-08 Ambulatory nullFlavo MNA [id number] Memoria 16:00:00 16:00:00 Pre-Reg r Neurology 02 l Franky Barrera 2018-07-08 2018-07-08 Ambulatory nullFlavo MNA [id number] Memoria 16:00:00 16:00:00 Pre-Reg r Neurology 02 l Franky Barrera 2018-07-08 2018-07-08 Outpatient MHIE JARON [id number] [facility]oria 10:00:00 10:00:00 02 salvador Barrera 2018-07-08 2018-07-08 [id number] 10:00:00 10:00:00 Raz 02 Chidi 2018-04-10 2018-04-10 Outpatient MARYAM MARYAM [id number] Memoria 16:00:00 16:00:00 01 salvador Barrera 2018-04-10 2018-04-10 Outpatient JARON SALMERON [id number] Memoria 16:00:00 16:00:00 01 savlador Barrera 2018-03-06 2018-03-06 Outpatient JARON SALMERON [id number] Memoria 13:30:00 13:30:00 00 salvador Barrera 2018-03-06 2018-03-06 Outpatient JARON SALMERON [id number] Memoria 13:30:00 13:30:00 00 salvador Barrera Results Test Description Test Time Test Comments Results Result Comments Source REAGENT STRIP/BLOOD GLUCOSE 2023-02-13 00:00:00 Test Item Value Reference Range Interpretation Comme nts BLOOD SUGAR (test code = 052222) 167 mg/dL 65-99 A Lab Interpretation (test code = 02084-1) Abnormal Chapis Seybold - [id number] 07:39:00 Test Item Value Reference Range Interpretation Comments APPEARANCE (test code = Clear Clear 6826900273) COLOR (test code = Straw Yellow A 3080851933) PH (test code = 4.8-8.0 3414316406) SP GRAVITY (test code = 1.003-1.030 1500661586) GLU U QUAL (test code = Normal Normal 7690528708) BLOOD (test code = Negative Negative 7890870430) KETONES (test code = Negative Negative 0720736075) PROTEIN (test code = 100 mg/dL Negative A 2887-8) UROBILIN (test code = Normal Normal 0049005369) BILIRUBIN (test code = Negative Negative 3469129139) NITRITE (test code = Negative Negative 3355437836) LEUK ARVIN (test code = Negative Negative 9980222536) RBC/HPF (test code = See_Comment [Autom ated message] 7832194709) The system [employer] generated this result transmit erika reference range : 0 - 3 HPF. The refe rence range was not u sed to interpret th is result as normal/abnormal . WBC/HPF (test code = See_Comment [Autom ated message] 1035176326) The system [employer] generated this result transmit erika reference range : 0 - 5 HPF. The refe rence range was not u sed to interpret th is result as normal/abnormal . BACTERIA (test code = Few Negative A 8742676094) SQ EPITH (test code = HPF 0381536813) TRANS EPI (test code = <1 See_Comment [Aut omated message] 6060720758) The system [employer] generated this result transmit erika reference range : <=1 HPF. The refere nce range was not u sed to interpret th is result as normal/abnormal . Lab Interpretation (test Abnormal code = 95980-8) [facility] [id number] 04:45:[address] findings to account for patient's symptoms. Hepatomegaly and steatosis. Preliminary Report Dictated by Resident: Raleigh Albert ?MD Debib., have reviewed this study and agree withthe [...] reviewed this study and agree withthe above report.[facility] [id number] 04:13:00 Test Item Value Reference Range Interpretation Comments TROPONIN I (test 0.040 ng/mL See_Comment H [Automated code = 0449777748) message] The system which generated this result [...] ? Lab Interpretation Abnormal (test code = 24190-5) [facility]ID [facility]2020-10-08 04:03:00 Test Item Value Reference Range Interpretation Comments SARS-CoV-2 Rapid ID NOW Not Detected Not Detected (test code = 26095-5) ANDREW (test code = ANDREW) ID NOW COVID-19 Assay is an isothermal nucleic acid amplification test intended for the qualitative detection of nucleic acid from SARS-CoV-2 viral RNA in nasopharyngeal (STRAW HAT BRUSHER) specimens. It is used under Emergency Use [...] indicated. Lab Interpretation Normal (test code = 42602-6) [facility]. METABOLIC PANEL (39428)2020-10-08 04:02:00 Test Item Value Reference Range Interpretation Comments NA (test code = 134 mmol/L 135-145 L 3773383634) K (test code = 4.2 mmol/L 3.5-5 1061038781) CL (test code = 98 mmol/L 98-108 0422705173) CO2 TOTAL (test code = 34 mmol/L 23-31 H 1391029589) AGAP (test code = 2-16 1114859820) BUN (test code = 33 mg/dL 7-23 H 3122633376) GLUCOSE (test code = 100 mg/dL 70-110 0760340818) CREATININE (test code = 1.41 mg/dL 0.5-1.04 H 1402415941) TOTAL BILI (test code = 0.5 mg/dL 0.1-1.5 7713366936) CALCIUM (test code = 9.1 mg/dL 8.6-10.6 4549043964) T PROTEIN (test code = 7.3 g/dL 6.3-8.2 1146030604) ALBUMIN (test code = 3.7 g/dL 3.5-5 4283991991) ALK PHOS (test code = 78 U/L 34-122 6507809107) ALTv (test code = 15 U/L 5-35 1742-6) AST(SGOT) (test code = 24 U/L 13-40 5781761744) eGFR Calculation mL/min/1.73m2 (Non-) (test code = 0288851247) eGFR Calculation mL/min/1.73m2 () (test code = 0444897913) ANDREW (test code = ANDREW) Association of [...] tests). Lab Interpretation Abnormal (test code = 29324-9) [facility]:02[facility]00 Test Item Value Reference Range Interpretation Comments LIPASE (test code = 2793047765) 54 U/L 0-220 Lab Interpretation (test code = Normal 19205-9) [facility] [id number] 03:55:00 Test Item Value Reference Range Interpretation Comments WBC (test code = See_Comment [Automated message] 6690-2) The system [employer] generated this result transmitted ref erence range: 4.30 - 1 1.10 10*3/?L. The re ference range was not u sed to interpret this result as normal/abnor mal. RBC (test code = See_Comment [Automated message] 789-8) The system [employer] generated this result transmitted ref erence range: [...] RDW-SD (test code 47.6 fL 39-49.9 = 05357-5) RDW-CV (test code 14.6 % 12-15.5 = 788-0) PLT (test code = See_Comment [Automated message] 777-3) The system Nurigeneic h generated this result transmitted ref erence range: 166 - 35 8 10*3/?L. The re ference range was not u sed to interpret this result as normal/abnor mal. MPV (test code = 11.0 fL 9.5-12.9 21957-0) NRBC/100 WBC (test See_Comment [Automat ed message] code = 3803827673) The syste m which generated this result transmitted ref erence range: 0.0 - 10 .0 /100 WBCs. The refer ence range was not u sed to interpret this result as normal/abnor mal. NRBC x10^3 (test <0.01 See_Comment [Automated message] code = 0943904880) The syste m which generated this result transmitted ref erence range: 10*3/?L. The reference range was not used to interpr et this result as normal/abnormal . GRAN MAT (NEUT) % 70.6 % (test code = 770-8) IMM GRAN % (test 0.40 % code = [id number]) LYMPH % (test code 18.6 % = 736-9) MONO % (test code 8.8 % = 5905-5) EOS % (test code = 1.0 % 713-8) BASO % (test code 0.6 % = 706-2) GRAN MAT 5.89 10*3/uL 1.88-7.09 x10^3(ANC) (test code = 3076944642) IMM GRAN x10^3 0.03 10*3/uL 0-0.06 (test code = 1466828986) LYMPH x10^3 (test 1.55 10*3/uL 1.32-3.29 code = 731-0) MONO x10^3 (test 0.73 10*3/uL 0.33-0.92 code = 742-7) EOS x10^3 (test 0.08 10*3/uL 0.03-0.39 code = 711-2) BASO x10^3 (test 0.05 10*3/uL 0.01-0.07 code = 704-7) [id number] Test Item Value Reference Range Interpretation Comments TROPONIN I (test 0.039 ng/mL See_Comment H [Automated code = [id number]) message] The system which generated this result [...] ? Lab Interpretation Abnormal (test code = 87864-9) [facility] Test Item Value Reference Range Interpretation Comments LIPASE (test code = 5995915937) 46 U/L 0-220 Lab Interpretation (test code = Normal 15998-9) [facility] Test Item Value Reference Range Interpretation Comments APPEARANCE (test code = Clear Clear 5254583120) COLOR (test code = Yellow Yellow 1965286403) PH (test code = 4.8-8.0 8027778786) SP GRAVITY (test code = 1.003-1.030 7958207029) GLU U QUAL (test code = 50 mg/dL Normal A 5099465491) BLOOD (test code = Negative Negative 8826050664) KETONES (test code = Negative Negative [id number]) PROTEIN (test code = 500 mg/dL Negative A 2887-8) UROBILIN (test code = Normal Normal 3648134269) BILIRUBIN (test code = Negative Negative 0091083892) NITRITE (test code = Negative Negative 9893938562) LEUK ARVIN (test code = Negative Negative 5373881834) RBC/HPF (test code = See_Comment [Autom ated message] 2742360378) The system [employer] generated this result transmit erika reference range : 0 - 3 HPF. The refe rence range was not u sed to interpret th is result as normal/abnormal . WBC/HPF (test code = See_Comment [Autom ated message] 8707747074) The system [employer] generated this result transmit erika reference range : 0 - 5 HPF. The refe rence range was not u sed to interpret th is result as normal/abnormal . BACTERIA (test code = Few Negative A 8812917540) SQ EPITH (test code = HPF 3370475239) HYAL CAST (test code = See_Comment H [Aut omated message] 2114431522) The system [employer] generated this result transmit erika reference range : <=2 LPF. The refere nce range was not u sed to interpret th is result as normal/abnormal . TRANS EPI (test code = <1 See_Comment [Aut omated message] 1305909812) The system [employer] generated this result transmit erika reference range : <=1 HPF. The refere nce range was not u sed to interpret th is result as normal/abnormal . Lab Interpretation (test Abnormal code = 99967-9) [id number] Test Item Value Reference Range Interpretation Comments TROPONIN I (test 0.036 ng/mL See_Comment H [Automated code = 1413453195) message] The system which generated this result [...] ? Lab Interpretation Abnormal (test code = 05831-3) [facility]34641[facility]2020-10-07 08:02:00 Test Item Value Reference Range Interpretation Comments NA (test code = 136 mmol/L 135-145 8687379339) K (test code = 4.4 mmol/L 3.5-5 1822266339) CL (test code = 100 mmol/L 98-108 2350302711) CO2 TOTAL (test code = 32 mmol/L 23-31 H 0612274394) AGAP (test code = 2-16 2092623933) BUN (test code = 35 mg/dL 7-23 H 6167943905) GLUCOSE (test code = 138 mg/dL 70-110 H 6238318059) CREATININE (test code = 1.25 mg/dL 0.5-1.04 H 8150861585) TOTAL BILI (test code = 0.5 mg/dL 0.1-1.5 9187213098) CALCIUM (test code = 9.1 mg/dL 8.6-10.6 1545830552) T PROTEIN (test code = 6.8 g/dL 6.3-8.2 0312231598) ALBUMIN (test code = 3.5 g/dL 3.5-5 3085020630) ALK PHOS (test code = 74 U/L 34-122 3008499694) ALTv (test code = 16 U/L 5-35 1742-6) AST(SGOT) (test code = 26 U/L 13-40 7312012220) eGFR Calculation mL/min/1.73m2 (Non-) (test code = 8172888032) eGFR Calculation mL/min/1.73m2 () (test code = 5306676268) ANDREW (test code = ANDREW) Association of [...] tests). Lab Interpretation Abnormal (test code = 28496-2) [facility] WITH [id number] 07:45:00 Test Item Value Reference Range Interpretation Comments WBC (test code = See_Comment [Automated message] 6690-2) The system [employer] generated this result transmitted ref erence range: 4.30 - 1 1.10 10*3/?L. The re ference range was not u sed to interpret this result as normal/abnor mal. RBC (test code = See_Comment [Automated message] 789-8) The system [employer] generated this result transmitted ref erence range: [...] RDW-SD (test code 47.0 fL 39-49.9 = 72743-0) RDW-CV (test code 14.6 % 12-15.5 = 788-0) PLT (test code = See_Comment [Automated message] 777-3) The system [employer] generated this result transmitted ref erence range: 166 - 35 8 10*3/?L. The re ference range was not u sed to interpret this result as normal/abnor mal. MPV (test code = 11.7 fL 9.5-12.9 33821-5) NRBC/100 WBC (test See_Comment [Automat ed message] code = 1579770070) The [employer] which generated this result transmitted ref erence range: 0.0 - 10 .0 /100 WBCs. The refer ence range was not u sed to interpret this result as normal/abnor mal. NRBC x10^3 (test <0.01 See_Comment [Automated message] code = 3034588063) The syste m which generated this result transmitted ref erence range: 10*3/?L. The reference range was not used to interpr et this result as normal/abnormal . GRAN MAT (NEUT) % 76.3 % (test code = 770-8) IMM GRAN % (test 0.30 % code = 4641749426) LYMPH % (test code 15.4 % = 736-9) MONO % (test code 7.0 % = 5905-5) EOS % (test code = 0.6 % 713-8) BASO % (test code 0.4 % = 706-2) GRAN MAT 7.06 10*3/uL 1.88-7.09 x10^3(ANC) (test code = 3860944466) IMM GRAN x10^3 0.03 10*3/uL 0-0.06 (test code = 0220204063) LYMPH x10^3 (test 1.43 10*3/uL 1.32-3.29 code = 731-0) MONO x10^3 (test 0.65 10*3/uL 0.33-0.92 code = 742-7) EOS x10^3 (test 0.06 10*3/uL 0.03-0.39 code = 711-2) BASO x10^3 (test 0.04 10*3/uL 0.01-0.07 code = 704-7) [facility] GLUCOSE (AUTOMATED)2020-09-30 13:41:00 Test Item Value Reference Range Interpretation Comments POCT GLU (test code = 2965411759) 101 mg/dL 70-110 Lab Interpretation (test code = Normal 68174-1) [facility] [id number] 13:36:00 Test Item Value Reference Range Interpretation Comments POCT Glu (age>30days) (test code = 101 mg/dL 70-110 3342) [facility]ID TEST[facility]2020-09-29 16:13:00 Test Item Value Reference Range Interpretation Comments SARS-CoV-2 Rapid ID NOW Not Detected Not Detected (test code = 07779-1) ANDREW (test code = ANDREW) ID NOW COVID-19 Assay is an isothermal nucleic acid amplification test intended for the qualitative detection of nucleic acid from SARS-CoV-2 viral RNA in nasopharyngeal (STRAW HAT BRUSHER) specimens. It is used under Emergency Use [...] indicated. Lab Interpretation Normal (test code = 04804-8) [facility]
[2023-03-30 16:24] LABS: Absolute Lymphocytes (CBC) 1.4 K/uL (0.7-4.9); Hematocrit 32.2 % (36.0-45.0); Lymphocytes % 18.1 % (15.3-44.8); MCV 90.2 fL (80-100); MPV 9.8 fL (7.6-11.3); Platelets 204 thou/uL (152-406); RBC Red Blood Cell Count 3.57 M/uL (3.86-4.86)
[2023-03-30 16:37] LABS: Protime INR 1.05
[2023-03-30 16:44] LABS: Blood O2 Saturation 94.7 % (92-98.5)
[2023-03-30 16:45] LABS: Arterial Blood Carboxyhemoglob 1.5 % (0-1.5)
[2023-03-30 16:50] LABS: ALT/SGPT 31 U/L (13-56); AST/SGOT 17 U/L (15-37); Albumin 2.5 g/dL (3.4-5.0); Alkaline Phosphatase 81 U/L (45-117); BUN Blood Urea Nitrogen 57 mg/dL (7-18); Bicarbonate 32 mEq/L (21-32); Bilirubin Total 0.2 mg/dL (0.2-1.0); Creatine Phosphokinase 267 U/L (26-192); Glomerular Filtration Rate 14 ml/min (=/>90); Glucose Level 164 mg/dL (74-106); Lipase 24 U/L (13-75); Magnesium 2.2 mg/dL (1.6-2.4); NT PRO-BNP 2046 pg/mL (<125); Potassium 3.9 mEq/L (3.5-5.1); Protein, Total 6.9 g/dL (6.4-8.2); Sodium Level 141 mEq/L (136-145); Troponin High Sensitivity 31.7 pg/mL (<58.9)
[2023-03-30 16:54] LABS: Bilirubin Direct < 0.1 mg/dL (0-0.2); Bilirubin Indirect, Calculated ND mg/dL (0.2-0.8)
--- NOTE | 2023-03-30 17:03 | RAD REPORT ---
EXAM DESCRIPTION: RAD - Chest Single View - 03/30/2023 4:58 pm CLINICAL HISTORY: SOB Chest pain. COMPARISON: <Comparisons> FINDINGS: Portable technique limits examination quality. Mild pulmonary edema. The heart is moderately enlarged. No displaced fractures. IMPRESSION: Mild CHF versus volume overload.
--- NOTE | 2023-03-30 17:38 | RAD REPORT ---
EXAM DESCRIPTION: US - Extrem Venous W Compress Harris - 03/30/2023 5:08 pm CLINICAL HISTORY: ble swelling r>l Bilateral leg edema and swelling. COMPARISON: <Comparisons> TECHNIQUE: Real-time sonographic interrogation of the left and right lower extremity deep venous sys tems was performed. FINDINGS: Normal compressibility, flow augmentation, phasic flow and spontaneous flow is identified in both the left and right lower extremity deep venous systems. IMPRESSION: No sonographic evidence of left or right lower extremity deep venous thrombosis.
[2023-03-30] MEDS ORDERED: ASPIRIN 325 MG TAB ONE (17:53)
[2023-03-30] MEDS ORDERED: ACETAMINOPHEN 500 MG TAB PO PRN (17:58)
[2023-03-30] MEDS ORDERED: ONDANSETRON 4 MG/2 ML VIAL IV PRN (17:58)
[2023-03-30] MEDS ORDERED: BUMETANIDE 2.5 MG/10 ML VIAL IV ONE (18:00)
--- NOTE | 2023-03-30 18:00 | EDPHYS ---
Physician Documentation [facility] Name: Caprice Mojica Age: 62 yrs Sex: Female : 1960 Arrival Date: 03/30/2023 Time: 15:46 Bed 14 Private MD: Irvin Lowery ED Physician Alberto Lopez HPI: 03/30 16:04 This 62 yrs old Black Female presents to ER via Unassigned with complaints of Leg cp3 Swelling, Breathing Difficulty. 16:04 Patient is a 62-year-old female with a history of malignant hypertension, chronic cp3 kidney disease, systolic heart failure who presents to the ED secondary to acute onset shortness of breath, generalized swelling, acute on chronic right leg and left leg swelling over the past 2 days. The patient endorses she has been short of breath described as dyspnea on exertion orthopnea and inability to lie flat for the last 2 days. Patient Dors that she has been taking extra doses of her Bumex scheduled twice daily to help with the swelling. The patient endorses compliance with medication regiment and diet. The patient denies chest pain, fever, chills, diaphoresis, nausea, vomiting. Historical: - Allergies: 16:08 PENICILLINS; nj1 - PMHx: 16:08 Congestive heart failure; Diabetes - IDDM; Hyperlipidemia; Hypertension; stage 4 kidney nj1 failure; - PSHx: 16:08 section; hysterectomy; Thyroid surgery; nj1 - Immunization history:: Client reports receiving the 2nd dose of the Covid vaccine. - Social history:: Smoking status: Patient denies any tobacco usage or history of. - Hospitalizations: : The patient was recently seen at [facility], 02/22/2023 patient admitted to the hospitalist service secondary to acute CHF exacerbation, exacerbation of chronic kidney disease, with malignant hypertension. ROS: 16:04 Constitutional: Negative for fever, chills, and weight loss, Eyes: Negative for injury, cp3 pain, redness, and discharge, ENT: Negative for injury, pain, and discharge, Neck: Negative for injury, pain, and swelling, Cardiovascular: Negative for chest pain, palpitations, and edema, Abdomen/GI: Negative for abdominal pain, nausea, vomiting, diarrhea, and constipation, Back: Negative for injury and pain, : Negative for injury, bleeding, discharge, and swelling, Skin: Negative for injury, rash, and discoloration, Neuro: Negative for headache, weakness, numbness, tingling, and seizure, Psych: Negative for depression, anxiety, suicide ideation, homicidal ideation, and hallucinations, Allergy/Immunology: Negative for hives, rash, and allergies, Endocrine: Negative for neck swelling, polydipsia, polyuria, polyphagia, and marked weight changes, Hematologic/Lymphatic: Negative for swollen nodes, abnormal bleeding, and unusual bruising. 16:04 Respiratory: Positive for dyspnea on exertion, orthopnea, shortness of breath. 16:04 MS/extremity: Positive for swelling. Exam: 16:04 Head/Face: Normocephalic, atraumatic. Eyes: Pupils equal round and reactive to light, cp3 extra-ocular motions intact. Lids and lashes normal. Conjunctiva and sclera are non-icteric and not injected. Cornea within normal limits. Periorbital areas with no swelling, redness, or edema. ENT: Nares patent. No nasal discharge, no septal abnormalities noted. Tympanic membranes are normal and external auditory canals are clear. Oropharynx with no redness, swelling, or masses, exudates, or evidence of obstruction, uvula midline. Mucous membranes moist. Neck: Trachea midline, no thyromegaly or masses palpated, and no cervical lymphadenopathy. Supple, full range of motion without nuchal rigidity, or vertebral point tenderness. No Meningismus. Chest/axilla: Normal chest wall appearance and motion. Nontender with no deformity. No lesions are appreciated. Back: No spinal tenderness. No costovertebral tenderness. Full range of motion. Skin: Warm, dry with normal turgor. Normal color with no rashes, no lesions, and no evidence of cellulitis. Neuro: Awake and alert, GCS 15, oriented to person, place, time, and situation. Cranial nerves II-XII grossly intact. Motor strength 5/5 in all extremities. Sensory grossly intact. Cerebellar exam normal. Normal gait. Psych: Awake, alert, with orientation to person, place and time. Behavior, mood, and affect are within normal limits. 16:04 Constitutional: The patient appears awake, obese, The patient is a very pleasant 62-year-old female who is awake but appears short of breath with movement. Patient is able to speak in 7-10 word sentences without getting short of breath. Patient has eyes closed but opens them with verbal stimuli and communicates with normal speech pattern. Patient is not altered and has a GCS of 15 16:04 Respiratory: mild respiratory distress is noted, Respirations: labored breathing, shallow respirations, that is moderate, Breath sounds: decreased breath sounds, that are moderate, Bilaterally, Respiratory rate: 15 16:04 Abdomen/GI: Patient with generalized anasarca. 16:04 Musculoskeletal/extremity: Extremities: Patient with right greater than left lower extremity swelling below the knee. Per patient this is normal for her but the right leg is a little bit more swollen than usual and has been weeping. Patient noted to have small blisters to the right lower extremity leaking clear fluid, mild erythema noted which is unchanged per patient. 3+ edema on the right. 1+ edema to the left lower extremity. Vital Signs: 15:55 BP 171 / 74; Pulse 64; Resp 15; Pulse Ox 91% on R/A; Weight 128.82 kg (R); Height 5 ft. nj1 2 in. ; 17:40 BP 183 / 69; Pulse 56; Resp 18; Pulse Ox 98% on R/A; mb9 19:06 BP 172 / 64; Pulse 58; Resp 18; Pulse Ox 98% on R/A; mb9 15:55 Body Mass Index 51.94 (128.82 kg, 157.48 cm) nj1 Procedures: 16:17 EKG interpreted by me at 1603: Patient was sinus bradycardia, first-degree AV block, cp3 rate of 58, QT 434, QTc 426, no evidence of acute FL . MDM: 15:49 Patient medically screened. cp3 16:04 Differential diagnosis: CHF exacerbation, Myocardial Infarction pulmonary edema, cp3 Malignant hypertension, acute on chronic kidney injury, DVT, acute pulmonary edema, anasarca, cellulitis, acute respiratory failure, acute on chronic respiratory failure. Data reviewed: vital signs, nurses notes, diagnostic data from outside facility, Inpatient hospital records reviewed Per HPI. Consideration of Admission/Observation Patient was admitted/placed on observation. Management of patient was discussed with the following: Hospitalist: Dr. Giron. I considered the following discharge prescriptions or medication management in the emergency department Medications were administered in the Emergency Department. See MAR. Independent interpretation of the following test(s) in the Emergency Department Rhythm Strip Interpretation Rate: 64BPM Rhythm: regular. External Records Reviewed: Inpatient record: per hpi. Care significantly affected by the following chronic conditions: Hypertension, Congestive Heart Failure, Obesity, Chronic Kidney Disease. 16:17 ED course: ABG interpreted by me: pH is 7.3, PCO2 of 51, PO2 74. Patient with chronic cp3 respiratory failure with mild acidosis no evidence of hypoxia on 2 L nasal cannula. Will defer BiPAP for now and continue to monitor patient for signs of respiratory failure. 03/30 16:02 Order name: BMP; Complete Time: 17:12 cp3 03/30 16:02 Order name: Blood Culture Adult (2) cp3 03/30 16:02 Order name: CBC with Diff; Complete Time: 17:12 cp3 03/30 16:02 Order name: CPK; Complete Time: 17:12 cp3 03/30 16:02 Order name: D-Dimer; Complete Time: 17:12 cp3 03/30 16:02 Order name: Hepatic Function; Complete Time: 17:12 cp3 03/30 16:02 Order name: Lipase; Complete Time: 17:12 cp3 03/30 16:02 Order name: Magnesium; Complete Time: 17:12 cp3 03/30 16:02 Order name: NT PRO-BNP; Complete Time: 17:12 cp3 03/30 16:02 Order name: PT-INR; Complete Time: 17:12 cp3 03/30 16:02 Order name: Ptt, Activated; Complete Time: 17:12 cp3 03/30 16:02 Order name: Troponin HS; Complete Time: 17:12 cp3 03/30 16:02 Order name: ABG; Complete Time: 17:12 cp3 03/30 18:05 Order name: CBC with Automated Diff EDMS 03/30 18:05 Order name: CBC with Automated Diff EDMS 03/30 18:05 Order name: Comprehensive Metabolic Panel EDMS 03/30 18:05 Order name: Comprehensive Metabolic Panel EDMS 03/30 18:05 Order name: Magnesium EDMS 03/30 18:05 Order name: Magnesium EDMS 03/30 18:05 Order name: NT PRO-BNP EDMS 03/30 18:05 Order name: NT PRO-BNP EDMS 03/30 18:05 Order name: Phosphorus EDMS 03/30 18:06 Order name: Phosphorus EDMS 08/11 18:09 Order name: Urinalysis W/Microscopic [facility] 03/30 18:09 Order name: Troponin High Sensitivity [facility] 03/30 18:09 Order name: Troponin High Sensitivity [facility] 03/30 16:02 Order name: XRAY CXR (1 view); Complete Time: 17:12 3 03/30 16:24 Order name: Extrem Venous W Compression Harris US; Complete Time: 17:51 3 03/30 18:07 Order name: Vent Perfusion VQ Scan [facility] 03/30 18:07 Order name: Vent Perfusion VQ Scan [facility] 03/30 18:09 Order name: Renal Ultrasound-Complete [facility] 03/30 18:09 Order name: Renal Ultrasound-Complete [facility] 03/30 19:26 Order name: US [facility] 03/30 16:02 Order name: EKG; Complete Time: 16:03 3 03/30 18:05 Order name: Low Sodium [facility] 03/30 18:09 Order name: CONS Physician Consult [facility] 03/30 16:02 Order name: Cardiac monitoring; Complete Time: 16:05 3 03/30 16:02 Order name: EKG - Nurse/Tech; Complete Time: 16:05 3 03/30 16:02 Order name: IV Saline Lock; Complete Time: 16:04 3 03/30 16:02 Order name: Labs collected and sent; Complete Time: 16:05 3 03/30 16:02 Order name: O2 Per Protocol; Complete Time: 16:04 3 03/30 16:02 Order name: O2 Sat Monitoring; Complete Time: 16:04 cp3 Administered Medications: 17:13 CANCELLED (Physician Discretion; med error): Furosemide IVP 60 mg IVP once; give over 2 cp3 minutes 17:47 Drug: Aspirin PO 325 mg Route: PO; mb9 18:09 Follow up: Response: No adverse reaction mb9 18:15 Drug: Bumetanide IVP 2 mg Route: IVP; Site: right antecubital; mb9 Disposition Summary: 03/30/23 18:00 Hospitalization Ordered Hospitalization Status: Observation cp3 Provider: Arely Kong cp3 Location: Telemetry/MedSurg (observation) cp3 Condition: Stable cp3 Problem: an acute exacerbation cp3 Symptoms: have worsened cp3 Bed/Room Type: Standard 3 Room Assignment: 224(03/30/23 18:46) eb Diagnosis - Hypertension secondary to other renal disorders cp3 - Acute on chronic combined systolic (congestive) and diastolic (congestive) heart cp3 failure - Chronic kidney disease, unspecified cp3 - Acute pulmonary edema cp3 - Edema, unspecified - bilateral lower extremity edema cp3 Forms: - Medication Reconciliation Form cp3 - SBAR form cp3 - Leadership Thank You Letter cp3 Signatures: Dispatcher [employer] [facility] Alberto Lopez MD MD cp3 Consuelo Daly Mary Beth, RN RN mb9 Mary Wilcox RN RN nj1 Corrections: (The following items were deleted from the chart) 17:13 17:13 Furosemide IVP 60 mg IVP once; give over 2 minutes ordered. cp3 cp3 18:09 18:06 Troponin High Sensitivity ordered. EDMS EDMS 18:46 18:00 cp3 eb
--- NOTE | 2023-03-30 18:00 | ER ---
Nurse's Notes [facility] Name: Caprice Mojica Age: 62 yrs Sex: Female : 1960 Arrival Date: 03/30/2023 Time: 15:46 Bed 14 Private MD: Irvin Lowery Diagnosis: Hypertension secondary to other renal disorders;Acute on chronic combined systolic (congestive) and diastolic (congestive) heart failure;Chronic kidney disease, unspecified;Acute pulmonary edema;Edema, unspecified-bilateral lower extremity edema Presentation: 03/30 15:55 Chief complaint: Patient states: Shortness of breath for a couple days, not urinating nj1 good. 15:55 Coronavirus screen: Vaccine status: Patient reports being unvaccinated. Coronavirus nj1 screen: Vaccine status: Patient reports receiving the 2nd dose of the covid vaccine. Ebola Screen: Patient denies travel to an Ebola-affected area in the 21 days before illness onset. Initial Sepsis Screen: Does the patient meet any 2 criteria? No. Patient's initial sepsis screen is negative. Does the patient have a suspected source of infection? No. Patient's initial sepsis screen is negative. Risk Assessment: Do you want to hurt yourself or someone else? Patient reports no desire to harm self or others. Onset of symptoms was March 2023. 15:55 Method Of Arrival: Ambulatory [facility] 15:55 Acuity: HERLINDA 3 nj1 Triage Assessment: 16:14 General: Appears uncomfortable. Respiratory: the patient has moderate shortness of mb9 breath. Historical: - Allergies: 16:08 PENICILLINS; nj1 - PMHx: 16:08 Congestive heart failure; Diabetes - IDDM; Hyperlipidemia; Hypertension; stage 4 kidney nj1 failure; - PSHx: 16:08 section; hysterectomy; Thyroid surgery; nj1 - Immunization history:: Client reports receiving the 2nd dose of the Covid vaccine. - Social history:: Smoking status: Patient denies any tobacco usage or history of. - Hospitalizations: : The patient was recently seen at [facility], 02/22/2023 patient admitted to the hospitalist service secondary to acute CHF exacerbation, exacerbation of chronic kidney disease, with malignant hypertension. Screenin:13 [facility] ED Fall Risk Assessment (Adult) History of falling in the last 3 months, mb9 including since admission No falls in past 3 months (0 pts) Confusion or Disorientation No (0 pts) Intoxicated or Sedated No (0 pts) Impaired Gait No (0 pts) Mobility Assist Device Used No (0 pt) Altered Elimination No (0 pt) Score/Fall Risk Level 0 - 2 = Low Risk Oriented to surroundings, Maintained a safe environment, Educated pt \T\ family on fall prevention, incl call for assistance when getting out of bed. Abuse screen: Denies threats or abuse. Nutritional screening: No deficits noted. Tuberculosis screening: No symptoms or risk factors identified. Assessment: 16:07 General: Appears uncomfortable, Behavior is cooperative. Pain: Complains of pain in mb9 chest Pain does not radiate. Quality of pain is described as throbbing, Pain began 2-3 days ago. Is intermittent. Neuro: Rawls Agitation-Sedation Scale (RASS): 0 - Alert and Calm Level of Consciousness is awake, alert, obeys commands, Oriented to person, place, time, situation, Appropriate for age. Cardiovascular: Reports chest pain, shortness of breath, Heart tones S1 S2 present Patient's skin is warm and dry. Rhythm is sinus bradycardia. Respiratory: Airway is patent Respiratory effort is even, unlabored, Respiratory pattern is regular, symmetrical, Breath sounds with wheezes bilaterally. GI: Abdomen is obese, Bowel sounds present X 4 quads. Abd is soft and non tender X 4 quads. Patient currently denies diarrhea, nausea, vomiting. : No signs and/or symptoms were reported regarding the genitourinary system. EENT: No signs and/or symptoms were reported regarding the EENT system. Derm: Skin is pink, warm \T\ dry. Musculoskeletal: Swelling present in right leg and left leg. 16:13 Reassessment: RT at bedside. mb9 17:40 Reassessment: Patient and/or family updated on plan of care and expected duration. Pain mb9 level reassessed. Patient is alert, oriented x 3, equal unlabored respirations, skin warm/dry/pink. Patient states feeling better. Patient states symptoms have improved. 18:28 Reassessment: No changes from previously documented assessment. Patient and/or family mb9 updated on plan of care and expected duration. Pain level reassessed. Patient is alert, oriented x 3, equal unlabored respirations, skin warm/dry/pink. 19:29 Reassessment: Report called to admitting nurse ELBERT Lorenzo. mb9 Vital Signs: 15:55 BP 171 / 74; Pulse 64; Resp 15; Pulse Ox 91% on R/A; Weight 128.82 kg (R); Height 5 ft. nj1 2 in. ; 17:40 BP 183 / 69; Pulse 56; Resp 18; Pulse Ox 98% on R/A; mb9 19:06 BP 172 / 64; Pulse 58; Resp 18; Pulse Ox 98% on R/A; mb9 15:55 Body Mass Index 51.94 (128.82 kg, 157.48 cm) nj1 ED Course: 15:48 Patient arrived in ED. rg4 15:49 Irvin Lowery DO is Private Physician. rg4 15:49 Alberto Lopez MD is Attending Physician. cp3 15:54 Tammy Dooley RN is Primary Nurse. mb9 15:54 Arm band placed on right wrist. nj1 15:54 Placed in gown. Bed in low position. Call light in reach. Side rails up X 1. Client mb9 placed on continuous cardiac and pulse oximetry monitoring. NIBP monitoring applied. lumber checker on. 16:01 Inserted saline lock: 20 gauge in right antecubital area, using aseptic technique. ap3 Blood collected. 16:08 Triage completed. nj1 16:08 No provider procedures requiring assistance completed. EKG done, by ED staff, reviewed mb9 by Alberto Lopez MD. 16:09 First set of blood cultures drawn by me. mb9 16:10 Initial lab(s) drawn, by me, sent to lab. ap3 16:59 XRAY CXR (1 view) In Process Unspecified. EDMS 17:10 Extrem Venous W Compression Harris US In Process Unspecified. EDMS 17:56 Arely Kong MD is Hospitalizing Provider. cp3 19:30 Patient admitted, IV remains in place. mb9 Administered Medications: 17:13 CANCELLED (Physician Discretion; med error): Furosemide IVP 60 mg IVP once; give over 2 cp3 minutes 17:47 Drug: Aspirin PO 325 mg Route: PO; mb9 18:09 Follow up: Response: No adverse reaction mb9 18:15 Drug: Bumetanide IVP 2 mg Route: IVP; Site: right antecubital; mb9 Medication: 16:13 VIS not applicable for this client. mb9 Outcome: 18:00 Decision to Hospitalize by Provider. fior 19:30 Admitted to Med/surg room 224, with chart, Report called to ELBERT Lorenzo 19:30 Condition: stable 19:50 Patient left the ED. nilam9 Signatures: Dispatcher [employer] EDAlberto Holloway MD MD cp3 Vidhi Krishnamurthy 4 Yisel Velazquez RN RN Tammy Walker RN RN nilam9 Mary Wilcox RN RN nj1 Corrections: (The following items were deleted from the chart) 16:08 15:54 Arm band placed on sherri nj1 16:14 14:09 First set of blood cultures drawn by miranda flores
--- NOTE | 2023-03-30 18:31 | P.HP ---
Certification for Inpatient Patient admitted to: Inpatient With expected LOS: >2 Midnights Patient will require the following post-hospital care: None Practitioner: I am a practitioner with admitting privileges, knowledge of patient current condition, hospital course, and medical plan of care. Services: Services provided to patient in accordance with Admission requirements found in Title 42 Section 412.3 of the Code of Federal Regulations Patient History Date of Service: 03/30/23 Reason for admission: Shortness of breath History of Present Illness: Patient is a 62-year-old female with a history of congestive heart failure,HFpEF, and chronic kidney disease who presents to the emergency room with shortness of breath. Patient states she has been feeling weak and fatigued for the last few days. Patient states she is gets really short of breath really easily. She is not really able to watch without getting fatigued. Patient is morbidly obese and her quality life is very poor. She is having significant volume retention but with a normal ejection fraction and her blood pressure being well controlled this is probably related to her worsening renal function. I ordered a UA with microscopy. Renal ultrasound has also been ordered. Patient has some abnormal findings on CT imaging. At this time, patient will be admitted to the hospital for further evaluation. Patient will need IV diuretics. Consult nephrology as well. Plan is to get patient aggressively diuresed we can get patient's renal function stabilized. Allergies Penicillins Allergy (Unknown, Verified 03/30/23 20:16) Itching, Whelps Home Medications: Rosuvastatin [Crestor*] 2 tab PO BEDTIME 12/29/20 Albuterol Inhaler [Ventolin Inhaler*] 2 puff IH Q6H PRN 02/17/23 Gabapentin 300 mg PO BID 02/17/23 Insulin Detemir [Levemir Flexpen] 45 unit SQ BEDTIME 02/17/23 Hydralazine HCl 50 mg PO TID #90 tab 02/18/23 Bumetanide 1 mg PO BID 02/23/23 Levothyroxine [Synthroid*] 100 mcg PO [id number] 02/23/23 cloNIDine HCL [Catapres*] 0.1 mg PO Q8H PRN #30 tab 02/26/23 Amlodipine [Norvasc*] 5 mg PO DAILY 03/30/23 - Past Medical/Surgical History Diabetic: Yes -: DM 2 -: Morbid obesity -: Hypothyroidism -: HLD -: MAX on CPAP. -: CKD III/IV with Proteinuria (Dr. Granados) -: HTN -: Chronic diastolic congestive heart failure -: hysterectomy -: thyroid sx -: csection Psychosocial/ Personal History: Patient lives at home with family - Family History Father Family History: Reviewed- Non-Contributory - Social History Smoking Status: Former smoker Alcohol use: No CD- Drugs: No Caffeine use: No Review of Systems 10-point ROS is otherwise unremarkable Physical Examination - Vital Signs Temperature: 98 F Blood Pressure: 140/80 Pulse: 80 Respirations: 18 Pulse Ox (%): 95 - Physical Exam General: Alert, In no apparent distress, Oriented x3 HEENT: Atraumatic, PERRLA, Mucous membr. moist/pink, EOMI, Sclerae nonicteric Neck: Supple, 2+ carotid pulse no bruit, No LAD, Without JVD or thyroid abnormality Respiratory: Diminished, Crackles/rales Cardiovascular: Regular rate/rhythm, Normal S1 S2, Systolic murmur Gastrointestinal: Normal bowel sounds, Soft and benign, Non-distended, No tenderness Musculoskeletal: No tenderness Integumentary: No rashes Neurological: Normal speech, Normal tone, Sensation intact, Cranial nerves 3-12 intact, Normal affect, Abnormal strength Lymphatics: No axilla or inguinal lymphadenopathy - Studies Laboratory Data (last 24 hrs) 03/30/23 03/30/23 03/30/23 16:10 16:10 16:10 WBC 8.00 Hgb 10.0 L Hct 32.2 L Plt Count 204 PT 11.5 INR 1.05 APTT 38.4 H Sodium 141 Potassium 3.9 BUN 57 H Creatinine 3.50 H Glucose 164 H Magnesium 2.2 Total Bilirubin 0.2 AST 17 ALT 31 Alkaline Phosphatase 81 Lipase 24 Assessment & Plan - Problems (Diagnosis) (1) (HFpEF) heart failure with preserved ejection fraction Current Visit: Yes Status: Acute (2) Chronic kidney disease, stage IV (severe) Current Visit: No Status: Acute (3) Hypertension Current Visit: No Status: Acute (4) Hypothyroid Current Visit: Yes Status: Acute (5) DM2 (diabetes mellitus, type 2) Current Visit: Yes Status: Acute (6) Morbid obesity Current Visit: Yes Status: Acute - Plan PLAN: 1. Echocardiogram from a couple of months ago has been reviewed 2. Monitor renal function closely. 3. Renal ultrasound 4. Nephrology consultation 5. Aggressive diuresis; UA with microscopy and monitor proteinuria 6. Strict I's and O's 7. Repeat CXR 8. Daily weights; caloric restriction 9. Education regarding diet and treatment of congestive heart failure Discharge Plan: Home Plan to discharge in: Greater than 2 days - Advance Directives Does patient have a Living Will: No Does patient have a Durable POA for Healthcare: Yes - Code Status/Comfort Care Code Status Assessed: Yes Code Status: Full Code Critical Care: No Time Spent Managing PTS Care (In Minutes): 45
[2023-03-30] MEDS ORDERED: ALBUMIN HUMAN 25% 100 ML IV ONE (19:00)
--- NOTE | 2023-03-30 19:26 | RAD REPORT ---
EXAM DESCRIPTION: US - Renal Ultrasound-Complete - 03/30/2023 6:55 pm CLINICAL HISTORY: ROBERT COMPARISON: <Comparisons> FINDINGS: Both kidneys are normal in size, shape and echotexture. Benign bilateral renal cysts. The right kidney measures 8.0 x 5.0 x 4.2 cm. No hydronephrosis, focal mass or perinephric fluid. The left kidney measures 12.0 x 6.6 x 5.1 cm. No hydronephrosis, focal mass or perinephric fluid. The urinary bladder is incompletely distended without gross abnormality seen. IMPRESSION: Bilateral benign renal cysts, otherwise negative study.
[2023-03-30] MEDS: ENOXAPARIN 30 MG/0.3 ML SQ SCH (20:40)
[2023-03-31 03:19] LABS: Absolute Lymphocytes (CBC) 1.4 K/uL (0.7-4.9); Hematocrit 29.9 % (36.0-45.0); Lymphocytes % 17.1 % (15.3-44.8); MCV 90.8 fL (80-100); MPV 9.6 fL (7.6-11.3); Platelets 182 thou/uL (152-406); RBC Red Blood Cell Count 3.29 M/uL (3.86-4.86)
[2023-03-31 03:37] LABS: Albumin 2.6 g/dL (3.4-5.0); Bilirubin Total 0.2 mg/dL (0.2-1.0); Magnesium 2.2 mg/dL (1.6-2.4); Phosphorus 4.3 mg/dL (2.5-4.9); Protein, Total 6.7 g/dL (6.4-8.2); Troponin High Sensitivity 33.1 pg/mL (<58.9)
[2023-03-31] MEDS: FUROSEMIDE 40 MG/4 ML VIAL IV SCH ×2 (08:07→16:36)
[2023-03-31] MEDS: ENOXAPARIN 30 MG/0.3 ML SQ SCH (08:07)
[2023-03-31] MEDS ORDERED: ALBUMIN HUMAN 25% 50 ML IV ONE (09:30)
--- NOTE | 2023-03-31 09:55 | P.PN ---
Subjective Date of Service: 03/31/23 Subjective: No new changes, No C/O voiced, Improving Review of Systems 10-point ROS is otherwise unremarkable Physical Examination - Vital Signs Temperature: 98 F Blood Pressure: 140/80 Pulse: 80 Respirations: 18 Pulse Ox (%): 95 - Physical Exam General: Alert, In no apparent distress HEENT: Atraumatic, PERRLA, EOMI Neck: Supple, JVD not distended Respiratory: Clear to auscultation bilaterally, Normal air movement Cardiovascular: Regular rate/rhythm, Normal S1 S2 Gastrointestinal: Normal bowel sounds, No tenderness Musculoskeletal: No tenderness Integumentary: No rashes Neurological: Normal speech, Normal tone, Normal affect Lymphatics: No axilla or inguinal lymphadenopathy - Studies Laboratory Data (last 24 hrs) 03/30/23 03/30/23 03/30/23 16:10 16:10 16:10 WBC 8.00 Hgb 10.0 L Hct 32.2 L Plt Count 204 PT 11.5 INR 1.05 APTT 38.4 H Sodium 141 Potassium 3.9 BUN 57 H Creatinine 3.50 H Glucose 164 H Magnesium 2.2 Total Bilirubin 0.2 AST 17 ALT 31 Alkaline Phosphatase 81 Lipase 24 Medications List Reviewed: Yes Assessment & Plan - Problems (Diagnosis) (1) (HFpEF) heart failure with preserved ejection fraction Current Visit: Yes Status: Acute (2) Chronic kidney disease, stage IV (severe) Current Visit: No Status: Acute (3) Hypertension Current Visit: No Status: Acute (4) Hypothyroid Current Visit: Yes Status: Acute (5) DM2 (diabetes mellitus, type 2) Current Visit: Yes Status: Acute (6) Morbid obesity Current Visit: Yes Status: Acute - Plan PLAN: 1. Echocardiogram from a couple of months ago has been reviewed 2. Monitor renal function closely. 3. Renal ultrasound 4. Nephrology consultation 5. Aggressive diuresis; UA with microscopy and monitor proteinuria 6. Strict I's and O's 7. Repeat CXR 8. Daily weights; caloric restriction 9. Education regarding diet and treatment of congestive heart failure - Advance Directives Does patient have a Living Will: No Does patient have a Durable POA for Healthcare: Yes - Code Status/Comfort Care Code Status: Full Code
[2023-03-31] MEDS: HYDRALAZINE HCL 20 MG/ML VIAL IV PRN ×2 (12:18→16:36)
--- NOTE | 2023-03-31 12:39 | P.CNS ---
Date of Consult: 03/31/23 Reason for Consult: RBOERT/ CKD Requesting Physician: Arely Kong Chief Complaint: Shortness of breath History of Present Illness: Patient is a 62-year-old female with a history of congestive heart failure,HFpEF, and chronic kidney disease who presents to the emergency room with shortness of breath. Patient states she has been feeling weak and fatigued for the last few days. Patient states she is gets really short of breath really easily. She is not really able to watch without getting fatigued. Patient is morbidly obese and her quality life is very poor. She is having significant volume retention but with a normal ejection fraction and her blood pressure being well controlled this is probably related to her worsening renal function. I ordered a UA with microscopy. Renal ultrasound has also been ordered. Zabrina hirsch has some abnormal findings on CT imaging. At this time, patient will be admitted to the hospital for further evaluation. Patient will need IV diuretics. Consult nephrology as well. Plan is to get patient aggressively diuresed we can get patient's renal function stabilized. 16:04 This 62 yrs old Black Female presents to ER via Unassigned with complaints of Leg cp3 Swelling, Breathing Difficulty. 16:04 Patient is a 62-year-old female with a history of malignant hypertension, chronic cp3 kidney disease, systolic heart failure who presents to the ED secondary to acute onset shortness of breath, generalized swelling, acute on chronic right leg and left leg swelling over the past 2 days. The patient endorses she has been short of breath described as dyspnea on exertion orthopnea and inability to lie flat for the last 2 days. Patient Dors that she has been taking extra doses of her Bumex scheduled twice daily to help with the swelling. The patient endorses compliance with medication regiment and diet. The patient denies chest pain, fever, chills, diaphoresis, nausea, vomiting. Allergies Penicillins Allergy (Unknown, Verified 03/30/23 20:16) Itching, Whelps Home medications list reviewed: Yes Home Medications: Rosuvastatin [Crestor*] 2 tab PO BEDTIME 12/29/20 Albuterol Inhaler [Ventolin Inhaler*] 2 puff IH Q6H PRN 02/17/23 Gabapentin 300 mg PO BID 02/17/23 Insulin Detemir [Levemir Flexpen] 45 unit SQ BEDTIME 02/17/23 Hydralazine HCl 50 mg PO TID #90 tab 02/18/23 Bumetanide 1 mg PO BID 02/23/23 Levothyroxine [Synthroid*] 100 mcg PO [id number] 02/23/23 cloNIDine HCL [Catapres*] 0.1 mg PO Q8H PRN #30 tab 02/26/23 Amlodipine [Norvasc*] 5 mg PO DAILY 03/30/23 - Past Medical/Surgical History Diabetic: Yes -: DM 2 -: Morbid obesity -: Hypothyroidism -: HLD -: MAX on CPAP. -: CKD III/IV with Proteinuria (Dr. Granados) -: HTN -: Chronic diastolic congestive heart failure -: hysterectomy -: thyroid sx -: csection Psychosocial/ Personal History: Patient lives at home with family - Family History Father Family History: Reviewed- Non-Contributory - Social History Alcohol use: No CD- Drugs: No Caffeine use: No Place of Residence: Home Review of Systems 10-point ROS is otherwise unremarkable Respiratory: SOB with Excertion Cardiovascular: Edema Physical Examination Temp Pulse Resp BP Pulse Ox 98 F 64 16 162/77 H 95 03/31/23 12:00 03/31/23 12:00 03/31/23 12:00 03/31/23 12:00 03/31/23 12:00 General: In no apparent distress, Oriented x3, Cooperative HEENT: Atraumatic Neck: Supple Respiratory: Diminished Cardiovascular: Regular rate/rhythm, Edema Gastrointestinal: Soft and benign, Non-distended Musculoskeletal: No clubbing, No contractures Integumentary: No rashes, No cyanosis Neurological: Normal speech Laboratory Data (last 24 hrs) 03/30/23 03/30/23 03/30/23 16:10 16:10 16:10 WBC 8.00 Hgb 10.0 L Hct 32.2 L Plt Count 204 PT 11.5 INR 1.05 APTT 38.4 H Sodium 141 Potassium 3.9 BUN 57 H Creatinine 3.50 H Glucose 164 H Magnesium 2.2 Total Bilirubin 0.2 AST 17 ALT 31 Alkaline Phosphatase 81 Lipase 24 Imagings Data: EXAM DESCRIPTION: US - Renal Ultrasound-Complete - 03/30/2023 6:55 pm CLINICAL HISTORY: ROBERT COMPARISON: <Comparisons> FINDINGS: Both kidneys are normal in size, shape and echotexture. Benign bilateral renal cysts. The right kidney measures 8.0 x 5.0 x 4.2 cm. No hydronephrosis, focal mass or perinephric fluid. The left kidney measures 12.0 x 6.6 x 5.1 cm. No hydronephrosis, focal mass or perinephric fluid. The urinary bladder is incompletely distended without gross abnormality seen. IMPRESSION: Bilateral benign renal cysts, otherwise negative study. EXAM DESCRIPTION: RAD - Chest Single View - 03/30/2023 4:58 pm CLINICAL HISTORY: SOB Chest pain. COMPARISON: <Comparisons> FINDINGS: Portable technique limits examination quality. Mild pulmonary edema. The heart is moderately enlarged. No displaced fractures. IMPRESSION: Mild CHF versus volume overload. EXAM DESCRIPTION: US - Extrem Venous W Compress Harris - 03/30/2023 5:08 pm CLINICAL HISTORY: ble swelling r>l Bilateral leg edema and swelling. COMPARISON: <Comparisons> TECHNIQUE: Real-time sonographic interrogation of the left and right lower extremity deep venous systems was performed. FINDINGS: Normal compressibility, flow augmentation, phasic flow and spontaneous flow is identified in both the left and right lower extremity deep venous systems. IMPRESSION: No sonographic evidence of left or right lower extremity deep venous thrombosis. Conclusions/Impression: Nephrology Feeling better No dyspnea No chest pain No acute events overnight Vitals, medications, blood work and imaging reviewed in the chart NAD. Obese. NCAT. MMM. CTA. RRR. Soft Abd. No C/C. LE Edema 1-2+. No rash. AAO. Normal speech. Stage I ROBERT likely CRS CKD IV with Proteinuria -No NSAIDs HTN with CKD/ CHF, variable -Continue Amlodipine & Hydralazine -Continue Clonidine Diastolic CHF, A/C -Low sodium diet -Daily weight -Continue furosemide -Start Spironolactone -Metolazone 10mg X1 DM II with CKD -Continue Lantus -RISS prn Hypoalbuminemia -Recommend protein supplementation -IV Albumin prn Anemia in chronic illness/ CKD -Monitor H&H CKD MBD -Start Ergo Hospitalist note reviewed
[2023-03-31] MEDS ORDERED: cloNIDine HCL 0.1 MG TAB PO ONE (16:47)
[2023-03-31 17:06] LABS: Specific Gravity 1.015 (1.005-1.030); Urine Bacteria <20 /HPF (<20); Urine Bilirubin NEGATIVE (Negative); Urine Blood Trace (Negative); Urine Clarity Extremely Turbid (Clear); Urine Color Light-Yellow (Yellow); Urine Glucose 3+ (Negative); Urine Mucus Slight /HPF (None Seen); Urine Protein 3+ (Negative); Urine RBC <5 /HPF (None Seen); Urine Urobilinogen Normal (Normal)
[2023-03-31] MEDS: HYDRALAZINE HCL 25 MG TABLET PO SCH (21:19)
[2023-03-31] MEDS: cloNIDine HCL 0.1 MG TAB PO SCH (21:19)
[2023-03-31] MEDS: GABAPENTIN 300 MG CAP PO SCH (21:20)
[2023-03-31] MEDS: INSULIN GLARGINE 100 UNIT/ML SQ SCH (21:20)
[2023-03-31] MEDS: ROSUVASTATIN 10 MG TAB PO SCH (21:23)
[2023-03-31] MEDS: AMLODIPINE 5 MG TAB PO SCH (22:34)
[2023-04-01] MEDS: HYDRALAZINE HCL 20 MG/ML VIAL IV PRN ×2 (00:49→22:02)
[2023-04-01 03:23] LABS: Uric Acid 8.9 mg/dL (2.6-6.0)
[2023-04-01] MEDS: LEVOTHYROXINE SOD 0.1 MG TAB PO SCH (05:23)
[2023-04-01] MEDS: ALBUTEROL 2.5 MG/3 ML NEB SOL NEB SCH ×4 (05:33→21:40)
[2023-04-01] MEDS ORDERED: METOLAZONE 5 MG TABLET PO ONE (06:00)
[2023-04-01] MEDS: DOCUSATE NA 100 MG CAP PO SCH ×2 (08:34→20:14)
[2023-04-01] MEDS: HYDRALAZINE HCL 25 MG TABLET PO SCH ×3 (08:34→20:14)
[2023-04-01] MEDS: SPIRONOLACTONE 25 MG TABLET PO SCH (08:34)
[2023-04-01] MEDS: ENOXAPARIN 30 MG/0.3 ML SQ SCH (08:34)
[2023-04-01] MEDS: AMLODIPINE 5 MG TAB PO SCH ×2 (08:35→20:14)
[2023-04-01] MEDS: FUROSEMIDE 40 MG/4 ML VIAL IV SCH ×2 (08:36→17:13)
[2023-04-01] MEDS: GABAPENTIN 300 MG CAP PO SCH ×2 (08:36→20:14)
[2023-04-01] MEDS: cloNIDine HCL 0.1 MG TAB PO SCH ×3 (08:38→20:14)
[2023-04-01] MEDS ORDERED: AMLODIPINE 5 MG TAB PO SCH (09:00)
[2023-04-01] MEDS ORDERED: DRISDOL (VITAMIN D=ERGOCALCIFEROL) 50000 UNIT CAP PO SCH (09:00)
[2023-04-01] MEDS ORDERED: EPOETIN ALFA-EPBX 10,000 UNIT/ML VIAL SQ SCH (09:00)
--- NOTE | 2023-04-01 15:31 | EKG ---
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
[2023-04-01] MEDS: ROSUVASTATIN 10 MG TAB PO SCH (20:13)
[2023-04-01] MEDS: INSULIN GLARGINE 100 UNIT/ML SQ SCH (20:14)
[2023-04-02] MEDS: ALBUTEROL 2.5 MG/3 ML NEB SOL NEB SCH ×4 (03:15→20:00)
[2023-04-02 04:19] LABS: Albumin 2.5 g/dL (3.4-5.0); Phosphorus 3.4 mg/dL (2.5-4.9); Potassium 3.6 mEq/L (3.5-5.1)
[2023-04-02] MEDS: LEVOTHYROXINE SOD 0.1 MG TAB PO SCH (05:59)
--- NOTE | 2023-04-02 07:56 | P.PN ---
Date of Service: 04/01/23 Subjective Patient is doing well with no new complaints. She clinically is feeling better. Ambulating and her respiratory status has improved. She did ask me about taking metolazone Sunday and Fridays as she stated that that helps get rid of excess fluid. She is worried about her renal function worsening. Will have her follow up and monitor renal function closely. She is scheduled to follow up with a different Nephrology group because of her insurance change. She is upset about this but she understands. We plan to discharge over the next 24-48 hours. Review of Systems 10-point ROS is otherwise unremarkable Physical Examination - Vital Signs Reviewed - Physical Exam General: Alert, In no apparent distress Respiratory: Clear to auscultation bilaterally, Normal air movement Cardiovascular: Regular rate/rhythm, Normal S1 S2 Gastrointestinal: Normal bowel sounds, No tenderness Musculoskeletal: bilateral lower extremity edema Neurological: No focal deficits Assessment & Plan - Problems (Diagnosis) (1) (HFpEF) heart failure with preserved ejection fraction Current Visit: Yes Status: Acute (2) Chronic kidney disease, stage IV (severe) Current Visit: No Status: Acute (3) Hypertension Current Visit: No Status: Acute (4) Hypothyroid Current Visit: Yes Status: Acute (5) DM2 (diabetes mellitus, type 2) Current Visit: Yes Status: Acute (6) Morbid obesity Current Visit: Yes Status: Acute - Plan Continue with plan of care as mentioned below: 1. Echocardiogram reviewed 2. Monitor renal function closely-improving. 3. Renal ultrasound with renal cysts 4. Nephrology consultation appreciated 5. Aggressive diuresis; UA with microscopy and monitor proteinuria 6. Strict I's and O's 7. Daily weights; caloric restriction 8. Education regarding kidney disease
[2023-04-02] MEDS: DOCUSATE NA 100 MG CAP PO SCH ×2 (08:25→21:28)
[2023-04-02] MEDS: HYDRALAZINE HCL 25 MG TABLET PO SCH ×3 (08:25→21:30)
[2023-04-02] MEDS: SPIRONOLACTONE 25 MG TABLET PO SCH ×2 (08:25→16:22)
[2023-04-02] MEDS: GABAPENTIN 300 MG CAP PO SCH ×2 (08:25→21:28)
[2023-04-02] MEDS: cloNIDine HCL 0.1 MG TAB PO SCH ×3 (08:25→21:30)
[2023-04-02] MEDS: FUROSEMIDE 40 MG/4 ML VIAL IV SCH (08:26)
[2023-04-02] MEDS: ENOXAPARIN 30 MG/0.3 ML SQ SCH (08:26)
[2023-04-02] MEDS: AMLODIPINE 5 MG TAB PO SCH ×2 (08:27→21:30)
[2023-04-02] MEDS ORDERED: POTASSIUM CL SA 10 MEQ TAB PO ONE (11:19)
--- NOTE | 2023-04-02 11:27 | P.PN ---
Date of Service: 04/02/23 Vital Signs Temp Pulse Resp BP Pulse Ox 97.9 F 66 17 158/69 H 91 04/02/23 08:00 04/02/23 08:00 04/02/23 08:00 04/02/23 08:00 04/02/23 08:00 Medications Acetaminophen (Acetaminophen 500 Mg Tab) 500 mg PO Q4HP PRN PRN Reason: pain/fever Albuterol Sulfate (Albuterol 2.5 Mg/3 Ml Neb Kathya) 2.5 mg NEB [id number] [facility] Last Admin: 04/02/23 08:00 Dose: 2.5 mg Amlodipine Besylate (Amlodipine 5 Mg Tab) 5 mg PO BID [facility] Last Admin: 04/02/23 08:27 Dose: 5 mg Atenolol (Atenolol 25 Mg Tab) 25 mg PO BEDTIME [facility] Bumetanide (Bumetanide 1 Mg Tablet) 2 mg PO BIDL [facility] Clonidine HCl (Clonidine Hcl 0.1 Mg Tab) 0.1 mg PO TID [facility] Last Admin: 04/02/23 08:25 Dose: 0.1 mg Docusate Sodium (Docusate Na 100 Mg Cap) 100 mg PO BID [facility] Last Admin: 04/02/23 08:25 Dose: 100 mg Enoxaparin Sodium (Enoxaparin 30 Mg/0.3 Ml) 30 mg SQ DAILY [facility] Last Admin: 04/02/23 08:26 Dose: 30 mg Ergocalciferol (Drisdol (Vitamin D=Ergocalciferol) 08371 Unit Cap) 50,000 unit PO Q7D [facility] Last Admin: 04/01/23 08:45 Dose: 50,000 unit Gabapentin (Gabapentin 300 Mg Cap) 300 mg PO BID [facility] Last Admin: 04/02/23 08:25 Dose: 300 mg Hydralazine HCl (Hydralazine Hcl 20 Mg/Ml Vial) 10 mg IV Q4HP PRN PRN Reason: Titrate to SBP (MUST DEFINE) Last Admin: 04/01/23 22:02 Dose: 10 mg Hydralazine HCl (Hydralazine Hcl 25 Mg Tablet) 50 mg PO TID [facility] Last Admin: 04/02/23 08:25 Dose: 50 mg Insulin Glargine (Insulin Glargine 100 Unit/Ml) 30 unit SQ BEDTIME [facility] Last Admin: 04/01/23 20:14 Dose: 30 unit Levothyroxine Sodium (Levothyroxine Sod 0.1 Mg Tab) 0.1 mg PO [id number] [facility] Last Admin: 04/02/23 05:59 Dose: 0.1 mg Ondansetron HCl (Ondansetron 4 Mg/2 Ml Vial) 4 mg IV Q6HP PRN PRN Reason: NAUSEA / VOMITING Potassium Chloride (Potassium Cl Sa 10 Meq Tab) 40 meq PO 1X ONE Stop: 04/02/23 11:20 Rosuvastatin Calcium (Rosuvastatin 10 Mg Tab) 20 mg PO BEDTIME [facility] Last Admin: 04/01/23 20:13 Dose: 20 mg Sodium Chloride (Flush Normal Saline 10 Ml) 10 ml IV BID [facility] Last Admin: 04/02/23 08:26 Dose: 10 ml Spironolactone (Spironolactone 25 Mg Tablet) 25 mg PO BIDL [facility] Microbiology Results 03/30/23 16:25 Blood - Blood Aerobic Blood Culture - Preliminary No growth in 24 hours. 03/30/23 16:25 Blood - Blood Anaerobic Blood Culture - Preliminary No growth in 24 hours. 03/30/23 16:09 Blood - Blood Aerobic Blood Culture - Preliminary No growth in 24 hours. 03/30/23 16:09 Blood - Blood Anaerobic Blood Culture - Preliminary No growth in 24 hours. Assessment/ Plan: Nephrology No dyspnea No chest pain Persistent edema No acute events overnight Vitals, medications, blood work and imaging reviewed in the chart. General: In no apparent distress, Oriented x3, Cooperative HEENT: Atraumatic Neck: Supple Respiratory: Diminished Cardiovascular: Regular rate/rhythm, Edema Gastrointestinal: Soft and benign, Non-distended Musculoskeletal: No clubbing, No contractures Integumentary: No rashes, No cyanosis Neurological: Normal speech Laboratory Data (last 24 hrs) 03/30/23 03/30/23 03/30/23 16:10 16:10 16:10 WBC 8.00 Hgb 10.0 L Hct 32.2 L Plt Count 204 PT 11.5 INR 1.05 APTT 38.4 H Sodium 141 Potassium 3.9 BUN 57 H Creatinine 3.50 H Glucose 164 H Magnesium 2.2 Total Bilirubin 0.2 AST 17 ALT 31 Alkaline Phosphatase 81 Lipase 24 Imagings Data: EXAM DESCRIPTION: US - Renal Ultrasound-Complete - 03/30/2023 6:55 pm CLINICAL HISTORY: ROBERT COMPARISON: <Comparisons> FINDINGS: Both kidneys are normal in size, shape and echotexture. Benign bilateral renal cysts. The right kidney measures 8.0 x 5.0 x 4.2 cm. No hydronephrosis, focal mass or perinephric fluid. The left kidney measures 12.0 x 6.6 x 5.1 cm. No hydronephrosis, focal mass or perinephric fluid. The urinary bladder is incompletely distended without gross abnormality seen. IMPRESSION: Bilateral benign renal cysts, otherwise negative study. EXAM DESCRIPTION: RAD - Chest Single View - 03/30/2023 4:58 pm CLINICAL HISTORY: SOB Chest pain. COMPARISON: <Comparisons> FINDINGS: Portable technique limits examination quality. Mild pulmonary edema. The heart is moderately enlarged. No displaced fractures. IMPRESSION: Mild CHF versus volume overload. EXAM DESCRIPTION: US - Extrem Venous W Compress Harris - 03/30/2023 5:08 pm CLINICAL HISTORY: ble swelling r>l Bilateral leg edema and swelling. COMPARISON: <Comparisons> TECHNIQUE: Real-time sonographic interrogation of the left and right lower extremity deep venous systems was performed. FINDINGS: Normal compressibility, flow augmentation, phasic flow and spontaneous flow is identified in both the left and right lower extremity deep venous systems. IMPRESSION: No sonographic evidence of left or right lower extremity deep venous thrombosis. Conclusions/Impression: Stage I ROBERT likely CRS CKD IV with Proteinuria -No NSAIDs HTN with CKD/ CHF, variable -Continue Amlodipine & Hydralazine -Continue Clonidine -Start Atenolol qhs Diastolic CHF, A/C -Low sodium diet -Daily weight -Change furosemide to Bumetanide 2mg BID -Increase spironolactone BID -Metolazone 10mg prn DM II with CKD -Continue Lantus -RISS prn Hypoalbuminemia -Recommend protein supplementation -IV Albumin prn Anemia in chronic illness/ CKD -Monitor H&H CKD MBD -Continue Ergo Case reviewed with Dr. Zuniga Hospitalist note reviewed
--- NOTE | 2023-04-02 11:47 | P.PN ---
Subjective Date of Service: 04/02/23 Chief Complaint: Shortness of breath No acute events overnight. She reports that her breathing is gradually improving. Her lower extremity edema is still present, but slowly improving. She denies any chest pain or palpitations. Review of Systems 10-point ROS is otherwise unremarkable Respiratory: SOB with Excertion Cardiovascular: Orthopnea, Edema Physical Examination - Vital Signs Temperature: 97.9 F Blood Pressure: 169/63 Pulse: 64 Respirations: 17 Pulse Ox (%): 92 - Studies Medications List Reviewed: Yes Assessment And Plan - Plan General: Alert, In no apparent distress, Oriented x3 HEENT: Atraumatic, Mucous membr. moist/pink, Sclerae nonicteric Neck: JVD not distended (difficult to assess given habitus) Respiratory: Diminished, faint bibasilar crackles/rales Cardiovascular: Regular rate/rhythm, No murmurs, Edema (1-2+ BLE) Gastrointestinal: Normal bowel sounds, Soft, Non-distended, No tenderness Musculoskeletal: No clubbing Integumentary: No rashes Neurological: Normal speech, Normal affect # Hypertensive Urgency with Acute on Chronic Decompensated Diastolic Congestive Heart Failure with Preserved Ejection Fraction - Consult Cardiology - recommendations appreciated - Chest x-ray = "mild CHF versus volume overload." - Serial troponin: 31.7 -> 33.1 - Transthoracic echocardiogram (December 2022) = "1. normal left ventricular ejection fraction 60-65% with normal wall motion. 2. moderate concentric left ventricular hypertrophy. 3. left atrial enlargement. 4. grade I diastolic dysfunction. 5. mild mitral regurgitation. 6. mild tricuspid regurgitation." - Diuresis with bumetanide - Continue amlodipine, atenolol, hydralazine, spironolactone, clonidine - Daily weights - Strict I/O - Cardiac diet, 1.5 L fluid restriction, 2 g Na restriction # KDIGO Stage I Acute Kidney Injury on likely Chronic Kidney Disease Stage III - Nephrology consulted and spoke with Dr. Silva - recommendations appreciated - Creatinine = 3.50 -> 3.27 -> 3.18 -> 3.06 (baseline ~2.5-2.6) - Urinalysis = 3+ glucose, 3+ protein - Renal ultrasound = "bilateral benign renal cysts, otherwise negative study." - Monitor creatinine and urine output - Renally dose medications # Hyperglycemia in Type II Diabetes Mellitus - Continue home insulin regimen - Correction scale insulin # Elevated D-Dimer - D-Dimer = 1991 - Bilateral lower extremity Doppler = "no sonographic evidence of left or right lower extremity deep venous thrombosis." - V/Q scan pending # Dyslipidemia - Continue home rosuvastatin # Hypothyroidism - Continue home levothyroxine # Obstructive Sleep Apnea # Morbid Obesity - BMI 49.1 kg/m2 - May use home CPAP - Lifestyle modifications Frank Zuniga M.D.
[2023-04-02] MEDS ORDERED: FLUOCINONIDE 0.05% CREAM 30GM TOP PRN (13:09)
[2023-04-02] MEDS: BUMETANIDE 1 MG TABLET PO SCH (16:18)
--- NOTE | 2023-04-02 16:18 | RAD REPORT ---
EXAM DESCRIPTION: RAD - Chest Single View - 04/02/2023 4:10 pm CLINICAL HISTORY: Post VQ scan Chest pain. COMPARISON: <Comparisons> FINDINGS: Portable technique limits examination quality. Moderate bilateral pulmonary opacities are noted likely representing pulmonary edema or pneumonia. Th e heart is mildly enlarged. Findings appear quite similar to the 03/30/2023 prior study.
--- NOTE | 2023-04-02 16:29 | RAD REPORT ---
EXAM DESCRIPTION: NM - Vent Perfusion VQ Scan - 04/02/2023 4:21 pm CLINICAL HISTORY: Dyspnea COMPARISON: Extrem Venous W Compress Harris dated 03/30/2023 TECHNIQUE: 21.4mCi Xe-133 gas inhaled and 5.8mCi Tc-MAA IV. Planar ventilation scan was performed in posterior projection after Xe-133 gas inhalation (wash-in, e quilibrium, and wash-out phases) followed by perfusion scan with Tc-MAA IV in multiple projections. Examination is correlated with recent chest radiograph. FINDINGS: Normal ventilation with appropriate wash-out and mild air-trapping. No mismatched segmental perfusion defect. IMPRESSION: Low probability of acute pulmonary embolism.
[2023-04-02] MEDS ORDERED: atenoloL 25 MG TAB PO SCH (21:00)
[2023-04-02] MEDS: ROSUVASTATIN 10 MG TAB PO SCH (21:29)
[2023-04-02] MEDS: INSULIN GLARGINE 100 UNIT/ML SQ SCH (21:31)
[2023-04-02 22:52] VITALS: O2SAT 98
[2023-04-03] MEDS: ALBUTEROL 2.5 MG/3 ML NEB SOL NEB SCH ×3 (02:00→13:55)
[2023-04-03 03:37] VITALS: BMI 49.1
[2023-04-03 04:54] LABS: Hematocrit 31.1 % (36.0-45.0)
[2023-04-03 05:09] LABS: Potassium 3.9 mEq/L (3.5-5.1)
[2023-04-03] MEDS: LEVOTHYROXINE SOD 0.1 MG TAB PO SCH (06:11)
[2023-04-03] MEDS: SPIRONOLACTONE 25 MG TABLET PO SCH (08:26)
[2023-04-03] MEDS: HYDRALAZINE HCL 25 MG TABLET PO SCH ×2 (08:26→14:49)
[2023-04-03] MEDS: cloNIDine HCL 0.1 MG TAB PO SCH ×2 (08:26→14:50)
[2023-04-03] MEDS: GABAPENTIN 300 MG CAP PO SCH (08:26)
[2023-04-03] MEDS: ENOXAPARIN 30 MG/0.3 ML SQ SCH (08:26)
[2023-04-03] MEDS: BUMETANIDE 1 MG TABLET PO SCH (08:26)
[2023-04-03] MEDS: AMLODIPINE 5 MG TAB PO SCH (08:26)
[2023-04-03] MEDS: DOCUSATE NA 100 MG CAP PO SCH (08:26)
[2023-04-03 12:43] VITALS: BP 147/66; TEMP 97.4
--- NOTE | 2023-04-03 14:01 | P.DS ---
Admission Date: 03/30/23 Discharge Date: 04/03/23 Primary Care Provider: Dr. Lowery Disposition: ROUTINE DISCHARGE Discharge Condition: GOOD Reason for Admission: Shortness of breath Consultations: 1. Cardiology 2. Nephrology Hospital Course: DIAGNOSES: # Hypertensive Urgency with Acute on Chronic Decompensated Diastolic Congestive Heart Failure with Preserved Ejection Fraction # KDIGO Stage I Acute Kidney Injury on likely Chronic Kidney Disease Stage III # Hyperglycemia in Type II Diabetes Mellitus # Elevated D-Dimer # Anemia of Chronic Kidney Disease # Dyslipidemia # Hypothyroidism # Obstructive Sleep Apnea # Morbid Obesity - BMI 49.1 kg/m2 HOSPITAL COURSE: Ms. Caprice Mojica is a pleasant 62 year old female with a past medical history significant for chronic diastolic congestive heart failure, type II diabetes mellitus, dyslipidemia, obstructive sleep apnea who was admitted to the [facility] on 03/30/2023 for shortness of breath and bilateral lower extremity edema. She was admitted to the Medicine service. Upon further evaluation, she was found to be hypertensive with an acute on chronic diastolic congestive heart failure exacerbation. Her chest x-ray revealed, "mild CHF versus volume overload." She was also found to have an acute kidney injury. Nephrology was consulted and she was evaluated by Dr. Silva. She was treated with IV diuretics, and over the course of the hospitalization, her symptoms improved significantly. Dr. Silva has cleared her for discharge with bumetanide 2 mg BID, spironolactone 25 mg BID, and metolazone 5 mg MWF. On 04/03/2023, she was seen on rounds and deemed medically stable for discharge. She was discharged with instructions to schedule follow-up appointments with her PCP (Dr. Lowery), with Cardiology (Dr. Rob), and with Nephrology (Dr. Silva). She was provided prescriptions for bumetanide, spironolactone, atenolo l, and metolazone. She was given the opportunity to ask questions and reported no further questions. Furthermore, all questions were answered to the best of my ability. A copy of this discharge summary will be sent to the above providers to facilitate continuity of care. Today, I personally spent 25 minutes on her case, of which greater than 50% of the time was spent in patient education, counseling, and coordination of care as described above. General: Alert, In no apparent distress, Oriented x3 HEENT: Atraumatic, Mucous membr. moist/pink, Sclerae nonicteric Neck: JVD not distended (difficult to assess given habitus) Respiratory: Diminished, but clear to auscultation bilaterally without any wheezes, rhonchi, or rales Cardiovascular: Regular rate/rhythm, No murmurs, Edema (trace-1+ BLE) Gastrointestinal: Normal bowel sounds, Soft, Non-distended, No tenderness Musculoskeletal: No clubbing Integumentary: No rashes Neurological: Normal speech, Normal affect Vital Signs/Physical Exam: Temp Pulse Resp BP Pulse Ox 97.4 F 57 16 147/66 H 96 04/03/23 12:00 04/03/23 12:00 04/03/23 12:00 04/03/23 12:00 04/03/23 12:00 Laboratory Data at Discharge: WBC 7.90 thou/uL (4.3-10.9) 03/31/23 02:48 Hgb 9.9 g/dL (12.0-15.0) L 04/03/23 03:38 Hct 31.1 % (36.0-45.0) L 04/03/23 03:38 Plt Count 182 thou/uL (152-406) 03/31/23 02:48 PT 11.5 SECONDS (9.5-12.5) 03/30/23 16:10 INR 1.05 03/30/23 16:10 APTT 38.4 SECONDS (24.3-36.9) H 03/30/23 16:10 Sodium 136 mEq/L (136-145) 04/03/23 03:38 Potassium 3.9 mEq/L (3.5-5.1) 04/03/23 03:38 BUN 54 mg/dL (7-18) H 04/03/23 03:38 Creatinine 3.02 mg/dL (0.55-1.02) H 04/03/23 03:38 Glucose 184 mg/dL (74-106) H 04/03/23 03:38 Uric Acid 8.9 mg/dL (2.6-6.0) H 04/01/23 02:19 Phosphorus 3.4 mg/dL (2.5-4.9) 04/02/23 02:27 Magnesium 2.2 mg/dL (1.6-2.4) 03/31/23 02:48 Total Bilirubin 0.2 mg/dL (0.2-1.0) 03/31/23 02:48 AST 15 U/L (15-37) 03/31/23 02:48 ALT 27 U/L (13-56) 03/31/23 02:48 Alkaline Phosphatase 75 U/L (45-117) 03/31/23 02:48 Lipase 24 U/L (13-75) 03/30/23 16:10 Home Medications: Rosuvastatin [Crestor*] 2 tab PO BEDTIME 12/29/20 Albuterol Inhaler [Ventolin Inhaler*] 2 puff IH Q6H PRN 02/17/23 Gabapentin 300 mg PO BID 02/17/23 Insulin Detemir [Levemir Flexpen] 45 unit SQ BEDTIME 02/17/23 Hydralazine HCl 50 mg PO TID #90 tab 02/18/23 Levothyroxine [Synthroid*] 100 mcg PO [id number] 02/23/23 cloNIDine HCL [Catapres*] 0.1 mg PO Q8H PRN #30 tab 02/26/23 Amlodipine [Norvasc*] 5 mg PO BID 03/30/23 metOLazone [Zaroxolyn*] 5 mg PO M,W,F #14 tab 04/02/23 Bumetanide 2 mg PO BID #120 tab 04/03/23 Spironolactone [Aldactone*] 25 mg PO BIDL #60 tab 04/03/23 atenoloL [Tenormin*] 25 mg PO BEDTIME #30 tab 04/03/23 New Medications: Spironolactone [Aldactone*] 25 mg PO BIDL #60 tab Bumetanide 2 mg PO BID #120 tab atenoloL [Tenormin*] 25 mg PO BEDTIME #30 tab metOLazone [Zaroxolyn*] 5 mg PO M,W,F #14 tab Physician Discharge Instructions: 1. Please call and schedule a follow-up appointment with your PCP (Dr. Lowery) in 3-5 days 2. Please call and schedule a follow-up appointment with Cardiology (Dr. Rob) in 3-5 days 3. Please call and schedule a follow-up appointment with Nephrology (Dr. Silva) in 3-5 days - You were found to have cysts on your kidneys. Please discuss with Dr. Silva for further evaluation Diet: AHA Activity: Ad itz Followup: Aleksandr Silva DO [ACTIVE - CAN ADMIT] - 1 Week Irvin Lowery DO [Primary Care Provider] - 1 Week Fernie Rob MD [ACTIVE - CAN ADMIT] - 1 Week Time spent managing pt's care (in minutes): 25
--- NOTE | 2023-04-03 21:32 | P.PN ---
Date of Service: 04/03/23 Vital Signs Temp Pulse Resp BP Pulse Ox 97.4 F 57 16 147/66 H 96 04/03/23 12:00 04/03/23 12:00 04/03/23 12:00 04/03/23 12:00 04/03/23 12:00 Microbiology Results 03/30/23 16:25 Blood - Blood Aerobic Blood Culture - Preliminary No growth in 24 hours. 03/30/23 16:25 Blood - Blood Anaerobic Blood Culture - Preliminary No growth in 24 hours. 03/30/23 16:09 Blood - Blood Aerobic Blood Culture - Preliminary No growth in 24 hours. 03/30/23 16:09 Blood - Blood Anaerobic Blood Culture - Preliminary No growth in 24 hours. Assessment/ Plan: Nephrology No dyspnea No chest pain Persistent edema No acute events overnight Vitals, medications, blood work and imaging reviewed in the chart. General: In no apparent distress, Oriented x3, Cooperative HEENT: Atraumatic Neck: Supple Respiratory: Diminished Cardiovascular: Regular rate/rhythm, Edema Gastrointestinal: Soft and benign, Non-distended Musculoskeletal: No clubbing, No contractures Integumentary: No rashes, No cyanosis Neurological: Normal speech Laboratory Data (last 24 hrs) 03/30/23 03/30/23 03/30/23 16:10 16:10 16:10 WBC 8.00 Hgb 10.0 L Hct 32.2 L Plt Count 204 PT 11.5 INR 1.05 APTT 38.4 H Sodium 141 Potassium 3.9 BUN 57 H Creatinine 3.50 H Glucose 164 H Magnesium 2.2 Total Bilirubin 0.2 AST 17 ALT 31 Alkaline Phosphatase 81 Lipase 24 Imagings Data: EXAM DESCRIPTION: US - Renal Ultrasound-Complete - 03/30/2023 6:55 pm CLINICAL HISTORY: ROBERT COMPARISON: <Comparisons> FINDINGS: Both kidneys are normal in size, shape and echotexture. Benign bilateral renal cysts. The right kidney measures 8.0 x 5.0 x 4.2 cm. No hydronephrosis, focal mass or perinephric fluid. The left kidney measures 12.0 x 6.6 x 5.1 cm. No hydronephrosis, focal mass or perinephric fluid. The urinary bladder is incompletely distended without gross abnormality seen. IMPRESSION: Bilateral benign renal cysts, otherwise negative study. EXAM DESCRIPTION: RAD - Chest Single View - 03/30/2023 4:58 pm CLINICAL HISTORY: SOB Chest pain. COMPARISON: <Comparisons> FINDINGS: Portable technique limits examination quality. Mild pulmonary edema. The heart is moderately enlarged. No displaced fractures. IMPRESSION: Mild CHF versus volume overload. EXAM DESCRIPTION: US - Extrem Venous W Compress Harris - 03/30/2023 5:08 pm CLINICAL HISTORY: ble swelling r>l Bilateral leg edema and swelling. COMPARISON: <Comparisons> TECHNIQUE: Real-time sonographic interrogation of the left and right lower extremity deep venous systems was performed. FINDINGS: Normal compressibility, flow augmentation, phasic flow and spontaneous flow is identified in both the left and right lower extremity deep venous systems. IMPRESSION: No sonographic evidence of left or right lower extremity deep venous thrombosis. Conclusions/Impression: Stage I ROBERT likely CRS CKD IV with Proteinuria -No NSAIDs HTN with CKD/ CHF, variable -Continue Amlodipine & Hydralazine -Continue Clonidine -Continue Atenolol qhs Diastolic CHF, A/C -Low sodium diet -Daily weight -Change furosemide to Bumetanide 2mg BID -Continue spironolactone BID -Metolazone 10mg prn DM II with CKD -Continue Lantus -RISS prn Hypoalbuminemia -Recommend protein supplementation -IV Albumin prn Anemia in chronic illness/ CKD -Monitor H&H CKD MBD -Continue Ergo Case reviewed with Dr. Zuniga Hospitalist note reviewed
== END 2023-04-03 15:18 | disposition home or self-care (01) | DRG 291 ==
LOC: ER 15:46 → ERHOLD 17:58 → 2ND 19:31
PROVIDERS: ADMIT Hospitalist; ATTEND Internal Medicine
DX: I13.0 Hypertensive heart and chronic kidney disease with heart failure and stage 1 through stage 4 chronic kidney disease, or unspecified chronic kidney disease (principal); I50.33 Acute on chronic diastolic (congestive) heart failure; E87.20 Acidosis, unspecified; N18.4 Chronic kidney disease, stage 4 (severe); N17.9 Acute kidney failure, unspecified; Z68.42 Body mass index [BMI] 45.0-49.9, adult; E66.01 Morbid (severe) obesity due to excess calories; E11.22 Type 2 diabetes mellitus with diabetic chronic kidney disease; E11.65 Type 2 diabetes mellitus with hyperglycemia; I16.0 Hypertensive urgency; E78.5 Hyperlipidemia, unspecified; I44.0 Atrioventricular block, first degree; E03.9 Hypothyroidism, unspecified; E88.09 Other disorders of plasma-protein metabolism, not elsewhere classified; G47.33 Obstructive sleep apnea (adult) (pediatric); Z79.4 Long term (current) use of insulin; Z88.0 Allergy status to penicillin; Z99.89 Dependence on other enabling machines and devices; Z87.891 Personal history of nicotine dependence; Z90.710 Acquired absence of both cervix and uterus; Z79.890 Hormone replacement therapy; Z79.899 Other long term (current) drug therapy
CPT/HCPCS: 36415; 36600; 71045; 76770; 78582; 80048; 80053; 80069; 80076; 81001; 82550; 82805; 82947; 83690; 83735; 83880; 84100; 84484; 84550; 85014; 85018; 85025; 85379; 85610; 85730; 87040; 93005; 93970; 94640; 96374; 99285; A9540; A9558; J0360; J1650; J1940; J7613; P9047; Q5106

== ENCOUNTER 2023-06-14 09:19 | Emergency (ER) | payer OTHER ==
--- OUTSIDE RECORDS SUMMARY | 2023-06-14 09:27 | XMS REPORT | Continuity of Care Document ---
:1960 Author Organization [facility] t Address [address] [place] [address] Care Team Providers Name Role Phone Popeye Granados MD Primary Care Physician Irvin Lowery Attending Clinician Unavailable MIGUEL LARA Attending Clinician Unavailable HAYDEN PIPER Attending Clinician Unavailable IRVIN LOWERY Attending Clinician Unavailable YUKI PORRAS Attending Clinician Unavailable RENALDO GALVAN Attending Clinician Unavailable TAHMINA AZUL Attending Clinician Unavailable HARVEY NAVARRO Attending Clinician Unavailable TOMOGRAPHY, FBMDC OPTICAL COHERENCE Attending Clinician Unav ailable CHRISTINE, KD Attending Clinician Unavailable LAB90 Attending Clinician Unavailable JACK CRAIN Attending Clinician Unavailable LEIGHTON LUDWIG Attending Clinician Unavailable HECTOR FLORES Attending Clinician Unavailable LAB47 Attending Clinician Unavailable ROBERTO MALIK Attending Clinician Unavailable KAYLIE AZUL Attending Clinician Unavailable ROBIN Attending Clinician Unavailable FB, TECH 1 Attending Clinician Unavailable JEAN CARLOS SAMUEL Attending Clinician Unavailable MD NOEMI Attending Clinician Unavailable SYLVIA NAVARRO Attending Clinician Unavailable [id number] Attending Clinician Unavailable Doctor Unassigned, [place] Attending Clinician Unavailable ENRIKE MONAHAN Attending Clinician [...] Type Policy Number Effective Date Expiration Date [facility] [id number] 2020 CHOICE 00:00:00 [facility] [id number] 2022 [facility]: HMO ON 00:00:00 [facility] [id number] CHOICE (HMO) [facility] CHOICE [id number] 2012 (POS II) 00:00:00 Problems Condition Condition Condition Status Onset Resolution Last Treating Co mments Source Name Details Category Date Date Treatment Clinician Date Well adult Well adult Disease Active K elsey exam exam 12-18 Seybold 00:00: - 00 Externa l Immunodefi Immunodefi Disease Active K elsey ciency due ciency due 12-18 Se ybold to to 00:00: - conditions conditions 00 Ex terna classified classified l elsewhere elsewhere (multi (multi HCC) HCC) Stage 4 Stage 4 Disease Active [facility] chronic chronic 4-02 Seybold kidney kidney 00:00: - disease disease 00 Externa (multi (multi l HCC) HCC) Hypertensi Hypertensi Disease Active K elsey on on 3-13 Seybold 00:00: - 00 Externa l Simple Simple Disease Active [facility] chronic chronic 3-13 Seybold bronchitis bronchitis 00:00: - (multi (multi 00 Externa HCC) HCC) l 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 3-13 Seybol d mellitus, mellitus, 00:00: - with with 00 Externa long-term long-term l current current use of use of insulin insulin (multi (multi HCC) HCC) MAX on MAX on Disease Active [facility] CPAP CPAP 3-13 Seybold 00:00: - 00 Externa l Class 3 Class 3 Disease Active [facility] severe severe 3-13 Seybold obesity obesity 00:00: - due to due to 00 Externa excess excess l calories calories with with serious serious comorbidit comorbidit y and body y and body mass index mass index (BMI) of (BMI) of 45.0 to 45.0 to 49.9 in 49.9 in adult adult Seasonal Seasonal Disease Active Kelse y allergic allergic 3-13 Seybol d rhinitis rhinitis 00:00: - due to due to 00 Externa pollen pollen l 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 00:00: - mixed mixed 00 Externa hyperlipid hyperlipid l emia emia (multi (multi HCC) HCC) 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 3-13 Se ybold athy athy 00:00: - associated associated 00 Ex terna with type with type l 2 diabetes 2 diabetes mellitus mellitus (multi (multi HCC) HCC) Acquired Acquired Disease Active Kelse y hypothyroi hypothyroi 3-13 Se ybold dism dism 00:00: - 00 Externa l Chronic Chronic Disease Active [facility] 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 00:00: - heart heart 00 Externa failure failure l (multi (multi HCC) HCC) Thyroid Thyroid Disease Active [facility] go[facility] goiter [facility]03 [facility] [place] [facility] Morbid Morbid Problem Active 2019-01-25 Darek omer obesity obesity 11:26:00 l (disorder) (disorder) Robert rmann Active Problem 01/25/2019 [facility] Neck pain Neck pain Problem Active 2019-01-25 Memoria (finding) (finding) 11:26:00 l Active Bruce Problem 01/25/2019 [facility] Paresthesi Problem Active 2019-01-25 M emoria a Paresthesi 11:26:00 l (finding) a Bruce (finding) Active Problem 01/25/2019 [facility] Shoulder Shoulder Problem Active 2019-01-25 Memoria pain pain 11:26:00 l (finding) (finding) Herm tianna Active Problem 01/25/2019 [facility] Diabetes Diabetes Problem Active 2019-01-25 Memoria mellitus mellitus 11:26:00 l (disorder) (disorder) Robert rmann Active Problem 01/25/2019 [facility] Allergies, [...] Active Memori a ins ins l Bruce NO KNOWN Allergy Active [place] FOOD to da ALLERGIE substanc [facility] Social History Social Habit Start Date Stop Date Quantity Comments Source [facility] Exposure to Not sure [facility] SARS-CoV-2 (event) [facility] Alcohol intake 2023-05-29 2023-05-29 Lifetime Chapis johnson - 00:00:00 00:00:00 non-drinker External (finding) History of Social 2023-02-15 2023-02-15 [facility] Cornelius - function 00:00:00 00:00:00 External Tobacco use and 2022-11-13 2022-11-13 Smokeless Chapis esteban - exposure 00:00:00 00:00:00 tobacco non-user External Sex Ass[birth year] At [birth year] [facility] 00:00:00 00:00:00 Hospital Smoking Status Start Date Stop Date Source Tobacco smoking consumption [facility] unknown Former Smoker [facility] Social History [facility] Medications Ordered Filled Start Stop Current Ordering Indication Dosage Frequency Signature Comments Components Source Medication Medication Date Date Medication? 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 Atenolol 25 2022-08 Yes 25mg Take 1 Muna ey MG oral 0-17 tablet (25 Seybol d Tablet 00:00: mg total) - 00 by mouth Externa at l bedtime. Insulin 2022-08 Yes [id number] Inject 30 K elsey Detemir 0-03 units at Seybold (Levemir 00:00: bedtime, - FlexPen) 00 increase Externa 100 UNIT/ML by 2 units l subcutaneou every 4 s Solution days until Pen-injecto fasting r glucose <140 (maximum 6 units). hydrALAZINE 2022-08 Yes 50mg Take 1 Muna ey HCl 50 MG 0-03 tablet (50 Seyb old oral Tablet 00:00: mg total) - 00 by mouth 2 Externa times l daily. Insulin 2022-08 Yes [id number] Inject 30 K elsey Detemir 0-03 units at Seybold (Levemir 00:00: bedtime, - FlexPen) 00 increase Externa 100 UNIT/ML by 2 units l subcutaneou every 4 s Solution days until Pen-injecto fasting r glucose <140 (maximum 6 units). hydrALAZINE 2022-08 Yes 50mg Take 1 Muna ey HCl 50 MG 0-03 tablet (50 Seyb old oral Tablet 00:00: mg total) - 00 by mouth 2 Externa times l daily. Spironolact 2022-08 Yes [id number] 25mg Take 1 [facility] one 25 MG 0-02 tablet (25 Seyb old oral Tablet 00:00: mg total) - 00 by mouth 2 Externa times l daily. Spironolact 2022-08 Yes [id number] 25mg Take 1 [facility] one 25 MG 0-02 tablet (25 Seyb old oral Tablet 00:00: mg total) - 00 by mouth 2 Externa times l daily. Albuterol Yes [id number] .63mg Q.[id number] Take 3 mL [facility] Sulfate 9-28 [id number] (0.63 mg Se ybold 0.63 MG/3ML 00:00: 3D total) by - inhalation 00 nebulizati Ext courtney Inhalant on 3 times l Solution daily as needed for wheezing or shortness of breath. Albuterol Yes [id number] .63mg Q.[id number] Take 3 mL [facility] Sulfate 9-28 [id number] (0.63 mg Se ybold 0.63 MG/3ML 00:00: 3D total) by - inhalation 00 nebulizati Ext courtney Inhalant on 3 times l Solution daily as needed for wheezing or shortness of breath. Gabapentin Yes [id number] 300mg Take 1 [facility] 300 MG oral 9-18 capsule Seybo ld Capsule 00:00: (300 mg - 00 total) by Externa mouth 2 l times daily. Rosuvastati Yes [id number] 20mg Take 1 [facility] n Calcium 9-18 3 tablet (20 Seyb old 20 MG oral 00:00: mg total) - Tablet 00 by mouth Externa nightly. l metOLazone 0 Yes [id number] 2.5mg Take 1 [facility] 2.5 MG oral 9-18 tablet Seybol d Tablet 00:00: (2.5 mg - tablet 00 total) by Externa mouth l every 48 hours. Gabapentin Yes [id number] 300mg Take 1 [facility] 300 MG oral 9-18 capsule Seybo ld Capsule 00:00: (300 mg - 00 total) by Externa mouth 2 l times daily. Rosuvastati Yes [id number] 20mg Take 1 [facility] n Calcium 9-18 3 tablet (20 Seyb old 20 MG oral 00:00: mg total) - Tablet 00 by mouth Externa nightly. l metOLazone 0 Yes [id number] 2.5mg Take 1 [facility] 2.5 MG oral 9-18 tablet Seybol d Tablet 00:00: (2.5 mg - tablet 00 total) by Externa mouth l every 48 hours. Atenolol 25 Yes 25mg Take 1 Muna ey MG oral 9-14 tablet (25 Seybol d Tablet 00:00: mg total) - 00 by mouth Externa at l bedtime. Amlodipine 0 Yes 5mg Take 1 Kelse y Besylate 9-14 tablet (5 Seybol d (NORVASC) 5 00:00: mg total) - MG oral 00 by mouth 2 Sales Review Clerk a Tablet times l daily. Albuterol Yes [id number] 2{puff} Q.25D Inhale 2 [facility] HFA 108 (90 8-07 puffs into Se ybold Base) 00:00: the lungs - MCG/ACT IN 00 every 6 Sales Review Clerk a AERS hours as l needed for wheezing or shortness of breath Albuterol Yes [id number] 2{puff} Q.25D Inhale 2 [facility] HFA 108 (90 8-07 puffs into Se ybold Base) 00:00: the lungs - MCG/ACT IN 00 every 6 Sales Review Clerk a AERS hours as l needed for wheezing or shortness of breath Clonidine Yes TAKE 1 [facility] HCl 7-12 TABLET BY Seybold (CATAPRES) 00:00: MOUTH - 0.1 MG oral 00 EVERY 6 TO Ex terna Tablet 8 HOURS l NEEDED FOR SYSTOLIC BLOOD PRESSURE GREATER THAN 170 Clonidine Yes TAKE 1 [facility] HCl 7-12 TABLET BY Seybold (CATAPRES) 00:00: MOUTH - 0.1 MG oral 00 EVERY 6 TO Ex terna Tablet 8 HOURS l NEEDED FOR SYSTOLIC BLOOD PRESSURE GREATER THAN 170 Insulin 2022-0 2023- No 30U Inject 30 Muna ey NPH, [...] UNIT/ML subcutaneou s Suspension Aspirin 81 Yes [id number] 81mg Take 1 [facility] MG oral - tablet (81 Seybol d Tablet 13:08: mg total) - Delayed 13 by mouth Externa Response daily l Fluticasone Yes Trelegy Dashawn sey -Umeclidin- 02-13 Ellipta Seybo ld Vilant 13:08: - (Trelegy 13 Externa Ellipta) l 100-62.5-25 MCG/ACT inhalation AEROSOL POWDER, BREATH ACTIVATED Albuterol Yes Ventolin Muna ey Sulfate 02-13 HFA Seybold (VENTOLIN 13:08: - HFA IN) 13 Externa l Insulin 2022- No Novolin R Muna ey Zinc Human 02-13 Regular Seybo ld (NOVOLIN L 13:07: 00:00 U-100 - SC) 36 :00 Insuln Externa l Insulin Yes [id number] Inject 45 K elsey Detemir 6-27 units at Seybold (Levemir 00:00: bedtime, - FlexPen) 00 increase Externa 100 UNIT/ML by 2 units l subcutaneou every 4 s Solution days until Pen-injecto fasting r glucose <140 (maximum 6 units) Insulin 2022- No [id number] Inject 45 [facility] Detemir 6-27 10-03 units at Seybold (Levemir 00:00: 00:00 bedtime, - FlexPen) 00 :00 increase Externa 100 UNIT/ML by 2 units l subcutaneou every 4 s Solution days until Pen-injecto fasting r glucose <140 (maximum 6 units) Insulin Yes 30U Inject 30 Kelse y NPH, 6-22 units into Seybold Human,, 09:53: the skin 2 - Isophane, 30 times Externa 100 UNIT/ML daily l subcutaneou s Suspension Aspirin 81 Yes [id number] 81mg Take 1 [facility] MG oral - tablet (81 Seybol d Tablet 09:53: mg total) - Delayed 30 by mouth Externa Response daily l Insulin Yes Novolin R Kelse y Zinc Human 02-08 Regular Seybol d (NOVOLIN L 09:53: U-100 - SC) 30 Insuln Externa l Fluticasone Yes Trelegy Dashawn sey -Umeclidin- 02-08 Ellipta Seybo ld Vilant 09:53: - (Trelegy 30 Externa Ellipta) l 100-62.5-25 MCG/ACT inhalation AEROSOL POWDER, BREATH ACTIVATED Albuterol Yes Ventolin Muna ey Sulfate 02-08 HFA Seybold (VENTOLIN 09:53: - HFA IN) 30 Externa l Ciclopirox Yes [id number] Apply to Chapsi Olamine - all Seybold 0.77 % 00:00: affected - apply 00 toenails Externa externally daily l Cream Ammonium Yes [id number] Apply to Chap[facility] Lactate 6-22 bilateral Seybold (Lac-Hydrin 00:00: feet daily - ) 12 % 00 Externa apply l externally Cream Ciclopirox Yes [id number] Apply to [facility] Olamine 6-22 all Seybold 0.77 % 00:00: affected - apply 00 toenails Externa externally daily l Cream Ammonium Yes [id number] Apply to [facility] Lactate 6-22 bilateral Seybold (Lac-Hydrin 00:00: feet daily - ) 12 % 00 Externa apply l externally Cream Ciclopirox Yes [id number] Apply to Chap[facility] Olamine 6-22 all Seybold 0.77 % 00:00: affected - apply 00 toenails Externa externally daily l Cream Ammonium Yes [id number] Apply to [facility] Lactate 6-22 bilateral Seybold (Lac-Hydrin 00:00: feet daily - ) 12 % 00 Externa apply l externally Cream Ciclopirox Yes [id number] Apply to Chap[facility] Olamine 6-22 all Seybold 0.77 % 00:00: affected - apply 00 toenails Externa externally daily l Cream Ammonium Yes [id number] Apply to [facility] Lactate 6-22 bilateral Seybold (Lac-Hydrin 00:00: feet daily - ) 12 % 00 Externa apply l externally Cream Levothyroxi Yes [id number] 100ug Take 1 [facility] ne Sodium 6-12 tablet Seybold 100 MCG 00:00: (100 mcg - oral Tablet 00 total) by Ext courtney mouth l daily Levothyroxi Yes [id number] 88ug Take 1 [facility] ne Sodium 6-12 tablet (88 Seyb old 88 MCG oral 00:00: mcg total) - Tablet 00 by mouth Externa daily l Levothyroxi Yes [id number] 100ug Take 1 [facility] ne Sodium 6-12 tablet Seybold 100 MCG 00:00: (100 mcg - oral Tablet 00 total) by Ext courtney mouth l daily Levothyroxi Yes [id number] 88ug Take 1 [facility] ne Sodium 6-12 tablet (88 Seyb old 88 MCG oral 00:00: mcg total) - Tablet 00 by mouth Externa daily l Levothyroxi Yes [id number] 100ug Take 1 [facility] ne Sodium 6-12 tablet Seybold 100 MCG 00:00: (100 mcg - oral Tablet 00 total) by Ext courtney mouth l daily Levothyroxi Yes [id number] 100ug Take 1 [facility] ne Sodium 6-12 tablet Seybold 100 MCG 00:00: (100 mcg - oral Tablet 00 total) by Ext courtney mouth l daily Carvedilol Yes [id number] 25mg Take 1 K elsey 25 MG oral 6-08 tablet (25 Sey bold Tablet 00:00: mg total) - 00 by mouth 2 Externa times l daily Montelukast 0 Yes [id number] 10mg QD Take 1 [facility] (SINGULAIR) 6-08 tablet (10 Se ybold 10 MG oral 00:00: mg total) - Tablet 00 by mouth Externa tablet nightly as l needed cloNIDine 2023-0 Yes [id number] 1{patch Apply 1 [facility] 0.2 MG/24HR 6-08 } patch Seybold transdermal 00:00: topically - PATCH 00 every 7 Externa WEEKLY days l Albuterol 2022-0 Yes [id number] .63mg Q.[id number] Take 3 mL [facility] Sulfate 6-08 [id number] (0.63 mg Se ybold 0.63 MG/3ML 00:00: 3D total) by - inhalation 00 nebulizati Ext courtney Inhalant on 3 times l Solution daily as needed for wheezing Carvedilol 2022-0 Yes [id number] 25mg Take 1 K elsey 25 MG oral 6-08 tablet (25 Sey bold Tablet 00:00: mg total) - 00 by mouth 2 Externa times l daily Montelukast 2022-0 Yes [id number] 10mg QD Take 1 [facility] (SINGULAIR) 6-08 tablet (10 Se ybold 10 MG oral 00:00: mg total) - Tablet 00 by mouth Externa tablet nightly as l needed cloNIDine 2022-0 Yes [id number] 1{patch Apply 1 [facility] 0.2 MG/24HR 6-08 } patch Seybold transdermal 00:00: topically - PATCH 00 every 7 Externa WEEKLY days l Albuterol 2022-0 Yes [id number] .63mg Q.[id number] Take 3 mL [facility] Sulfate 6-08 [id number] (0.63 mg Se ybold 0.63 MG/3ML 00:00: 3D total) by - inhalation 00 nebulizati Ext courtney Inhalant on 3 times l Solution daily as needed for wheezing Carvedilol 2022-0 Yes [id number] 25mg Take 1 K elsey 25 MG oral 6-08 tablet (25 Sey bold Tablet 00:00: mg total) - 00 by mouth 2 Externa times l daily Montelukast 2022-0 Yes [id number] 10mg QD Take 1 [facility] (SINGULAIR) 6-08 tablet (10 Se ybold 10 MG oral 00:00: mg total) - Tablet 00 by mouth Externa tablet nightly as l needed cloNIDine 2022-0 Yes [id number] 1{patch Apply 1 [facility] 0.2 MG/24HR 6-08 } patch Seybold transdermal 00:00: topically - PATCH 00 every 7 Externa WEEKLY days l Albuterol Yes [id number] .63mg Q.[id number] Take 3 mL [facility] Sulfate 6-08 [id number] (0.63 mg Se ybold 0.63 MG/3ML 00:00: 3D total) by - inhalation 00 nebulizati Ext courtney Inhalant on 3 times l Solution daily as needed for wheezing Valacyclovi Yes [id number] 500mg Take 1 [facility] r HCl 6-01 tablet Seybold (Valtrex) 00:00: (500 mg - 500 MG oral 00 total) by Ext courtney Tablet mouth l daily Valacyclovi Yes [id number] 500mg Take 1 [facility] r HCl 6-01 tablet Seybold (Valtrex) 00:00: (500 mg - 500 MG oral 00 total) by Ext courtney Tablet mouth l daily Valacyclovi Yes [id number] 500mg Take 1 [facility] r HCl 6-01 tablet Seybold (Valtrex) 00:00: (500 mg - 500 MG oral 00 total) by Ext courtney Tablet mouth l daily Valacyclovi Yes [id number] 500mg Take 1 [facility] r HCl 6-01 tablet Seybold (Valtrex) 00:00: (500 mg - 500 MG oral 00 total) by Ext courtney Tablet mouth l daily Valacyclovi Yes [id number] 500mg Take 1 [facility] r HCl 6-01 tablet Seybold (Valtrex) 00:00: (500 mg - 500 MG oral 00 total) by Ext courtney Tablet mouth l daily Levothyroxi Yes [id number] 200ug Take 1 [facility] ne Sodium 5-21 tablet Seybold 200 MCG 00:00: (200 mcg - oral Tablet 00 total) by Ext courtney mouth l daily Insulin Yes 30U Inject 30 Kelse y NPH, 5-18 units into Seybold Human,, 08:10: the skin 2 - Isophane, 32 times Externa 100 UNIT/ML daily l subcutaneou s Suspension Aspirin 81 Yes [id number] 81mg Take 1 [facility] MG oral 5-18 tablet (81 Seybol d Tablet 08:10: mg total) - Delayed 32 by mouth Externa Response daily l Insulin 2023-0 Yes 30U Inject 30 Kelse y NPH, 5-18 units into ybtavon Human,, 08:10: the skin 2 - Isophane, 32 times Externa 100 UNIT/ML daily l subcutaneou s Suspension Aspirin 81 2022-0 Yes [id number] 81mg Take 1 [facility] MG oral 5-18 tablet (81 Seybol d Tablet 08:10: mg total) - Delayed 32 by mouth Externa Response daily l Mupirocin 2022-0 Yes [id number] Apply 1 [facility] (BACTROBAN) 18 applicatio Se ybold 2 % apply 00:00: n. - externally 00 topically Exte rna Ointment 2 times l daily Cephalexin 2022-0 Yes [id number] 250mg Take 1 [facility] (Keflex) -18 capsule Seybold 250 MG oral 00:00: (250 mg - Capsule 00 total) by Externa mouth 2 l times daily Mupirocin 2022-0 Yes [id number] Apply 1 [facility] (BACTROBAN) 18 applicatio Se ybold 2 % apply 00:00: n. - externally 00 topically Exte rna Ointment 2 times l daily Mupirocin 2022-0 Yes [id number] Apply 1 [facility] (BACTROBAN) 18 applicatio Se ybold 2 % apply 00:00: n. - externally 00 topically Exte rna Ointment 2 times l daily Mupirocin 3-0 Yes [id number] Apply 1 [facility] (BACTROBAN) -18 applicatio Se ybold 2 % apply 00:00: n. - externally 00 topically Exte rna Ointment 2 times l daily Mupirocin 3-0 2023- No [id number] Apply 1 [facility] (BACTROBAN) 5-18 10-03 applicatio S eybold 2 % apply 00:00: 00:00 n. - externally 00 :00 topically Exte rna Ointment 2 times l daily Cephalexin 2023-0 2023- No [id number] 250mg Take 1 [facility] (Keflex) 5-18 06-08 [...] subcutaneou s Suspension Aspirin 81 2022-0 Yes [id number] 81mg Take 1 [facility] MG oral 5-01 tablet (81 Seybol d Tablet 13:42: mg total) - Delayed 12 by mouth Externa Response daily l Insulin 2022-0 Yes 30U Inject 30 Kelse y NPH, 5-01 units into Seybold Human,, 13:42: the skin 2 - Isophane, 12 times Externa 100 UNIT/ML daily l subcutaneou s Suspension Aspirin 81 2022-0 Yes [id number] 81mg Take 1 [facility] MG oral 5-01 tablet (81 Seybol d Tablet 13:42: mg total) - Delayed 12 by mouth Externa Response daily l Bumetanide 2022-0 Yes [id number] 1mg Take 1 K elsey 1 MG oral 5-01 tablet (1 Seybo ld Tablet 00:00: mg total) - 00 by mouth 2 Externa times l daily Bumetanide 2022-0 Yes [id number] 1mg Take 1 K elsey 1 MG oral 5-01 tablet (1 Seybo ld Tablet 00:00: mg total) - 00 by mouth 2 Externa times l daily Bumetanide 3-0 Yes [id number] 1mg Take 1 K elsey 1 MG oral 5-01 tablet (1 Seybo ld Tablet 00:00: mg total) - 00 by mouth 2 Externa times l daily Bumetanide 3-0 Yes [id number] 1mg Take 1 K elsey 1 MG oral 5-01 tablet (1 Seybo ld Tablet 00:00: mg total) - 00 by mouth 2 Externa times l daily Bumetanide 3-0 Yes [id number] 1mg Take 1 K elsey 1 MG oral 5-01 tablet (1 Seybo ld Tablet 00:00: mg total) - 00 by mouth 2 Externa times l daily Bumetanide 3-0 Yes [id number] 1mg Take 1 K elsey 1 MG oral 5-01 tablet (1 Seybo ld Tablet 00:00: mg total) - 00 by mouth 2 Externa times l daily Bumetanide 2022-0 Yes [id number] 1mg Take 1 K elsey 1 MG oral 5-01 tablet (1 Seybo ld Tablet 00:00: mg total) - 00 by mouth 2 Externa times l daily Bumetanide 3-0 Yes [id number] 1mg Take 1 K elsey 1 MG oral 5-01 tablet (1 Seybo ld Tablet 00:00: mg total) - 00 by mouth 2 Externa times l daily Gabapentin 2023-0 Yes [id number] 300mg Take 1 [facility] 300 MG oral 4-24 capsule Seybo ld Capsule 00:00: (300 mg - 00 total) by Externa mouth 2 l times daily Gabapentin 2023-0 Yes [id number] 300mg Take 1 [facility] 300 MG oral 4-24 capsule Seybo ld Capsule 00:00: (300 mg - 00 total) by Externa mouth 2 l times daily Gabapentin 2023-0 Yes [id number] 300mg Take 1 [facility] 300 MG oral 4-24 capsule Seybo ld Capsule 00:00: (300 mg - 00 total) by Externa mouth 2 l times daily Gabapentin 2023-0 Yes [id number] 300mg Take 1 [facility] 300 MG oral 4-24 capsule Seybo ld Capsule 00:00: (300 mg - 00 total) by Externa mouth 2 l times daily Gabapentin 2023-0 Yes [id number] 300mg Take 1 [facility] 300 MG oral 4-24 capsule Seybo ld Capsule 00:00: (300 mg - 00 total) by Externa mouth 2 l times daily Gabapentin 0 Yes [id number] 300mg Take 1 [facility] 300 MG oral 4-24 capsule Seybo ld Capsule 00:00: (300 mg - 00 total) by Externa mouth 2 l times daily Fluticasone 0 2023- No INHALE 1 K elsey -Umeclidin- [...] l subcutaneou s Suspension Aspirin 81 Yes [id number] 81mg Take 1 [facility] MG oral 4-18 [...] inhalation 00 Externa Inhalant l Solution Albuterol 3-0 Yes [facility] Sulfate 4-11 Seybold 0.63 MG/3ML 00:00: - inhalation 00 Externa Inhalant l Solution Albuterol 3-0 Yes [facility] Sulfate 4-11 Seybold 0.63 MG/3ML 00:00: - inhalation 00 Externa Inhalant l Solution Albuterol 3-0 2023- No [facility] Sulfate 4-11 06-08 Seybold 0.63 MG/3ML 00:00: 00:00 - inhalation 00 :00 Externa Inhalant l Solution Bumetanide 3-0 Yes 1mg Take 1 Kelse y 1 MG oral 4-03 tablet (1 Seybo ld Tablet 00:00: mg total) - 00 by mouth Externa daily l Gabapentin, 2022-0 Yes [id number] 1{tbl} Take 1 Chap[facility] Once-Daily, 4-03 tablet by Sey bold (Gralise) 00:00: mouth - 300 MG oral 00 daily Externa Tablet l Bumetanide 0 3- No 1mg Take 1 Muna ey 1 MG oral 4-03 05-01 tablet (1 Seyb old Tablet 00:00: 00:00 mg total) - 00 :00 by mouth Externa daily l Levothyroxi 2022-0 Yes [id number] 175ug Take 1 [facility] ne Sodium 3-28 tablet Seybold 175 MCG 00:00: (175 mcg - oral Tablet 00 total) by Ext courtney mouth l daily Rosuvastati 2022-0 Yes [id number] 20mg Take 1 [facility] n Calcium 3-28 3 tablet (20 Seyb old 20 MG oral 00:00: mg total) - Tablet 00 by mouth Externa daily l Levothyroxi 2022-0 Yes [id number] 175ug Take 1 [facility] ne Sodium 3-28 tablet Seybold 175 MCG 00:00: (175 mcg - oral Tablet 00 total) by Ext courtney mouth l daily Rosuvastati 0 Yes [id number] 20mg Take 1 [facility] n Calcium 3-28 3 tablet (20 Seyb old 20 MG oral 00:00: mg total) - Tablet 00 by mouth Externa daily l Levothyroxi 0 Yes [id number] 175ug Take 1 [facility] ne Sodium 3-28 tablet Seybold 175 MCG 00:00: (175 mcg - oral Tablet 00 total) by Ext courtney mouth l daily Rosuvastati 2022-0 Yes [id number] 20mg Take 1 [facility] n Calcium 3-28 3 tablet (20 Seyb old 20 MG oral 00:00: mg total) - Tablet 00 by mouth Externa daily l Rosuvastati 2022-0 Yes [id number] 20mg Take 1 [facility] n Calcium 3-28 3 tablet (20 Seyb old 20 MG oral 00:00: mg total) - Tablet 00 by mouth Externa daily l Rosuvastati 2022-0 Yes [id number] 20mg Take 1 [facility] n Calcium 3-28 3 tablet (20 Seyb old 20 MG oral 00:00: mg total) - Tablet 00 by mouth Externa daily l Rosuvastati 2022-0 Yes [id number] 20mg Take 1 [facility] n Calcium 3-28 3 tablet (20 Seyb old 20 MG oral 00:00: mg total) - Tablet 00 by mouth Externa daily l Levothyroxi 2022-0 Yes [id number] 175ug Take 1 [facility] ne Sodium 3-28 tablet Seybold 175 MCG 00:00: (175 mcg - oral Tablet 00 total) by Ext courtney mouth l daily Rosuvastati 2022-0 Yes [id number] 20mg Take 1 [facility] n Calcium 3-28 3 tablet (20 Seyb old 20 MG oral 00:00: mg total) - Tablet 00 by mouth Externa daily l Irbesartan 2022-0 Yes [id number] 150mg Take 1 Chapis 150 MG oral 3-27 tablet Seybol d Tablet 00:00: (150 mg - 00 total) by Externa mouth l nightly hydrALAZINE 2022-0 Yes [id number] 50mg Take 1 [facility] HCl 50 MG 3-27 tablet (50 Seyb old oral Tablet 00:00: mg total) - 00 by mouth 3 Externa times l daily Irbesartan 2022-0 Yes [id number] 150mg Take 1 [facility] 150 MG oral 3-27 tablet Seybol d Tablet 00:00: (150 mg - 00 total) by Externa mouth l nightly hydrALAZINE 2022-0 Yes [id number] 50mg Take 1 [facility] HCl 50 MG 3-27 tablet (50 Seyb old oral Tablet 00:00: mg total) - 00 by mouth 3 Externa times l daily Irbesartan 2022-0 Yes [id number] 150mg Take 1 [facility] 150 MG oral 3-27 tablet Seybol d Tablet 00:00: (150 mg - 00 total) by Externa mouth l nightly hydrALAZINE 2022-0 Yes [id number] 50mg Take 1 [facility] HCl 50 MG 3-27 tablet (50 Seyb old oral Tablet 00:00: mg total) - 00 by mouth 3 Externa times l daily Irbesartan 2022-0 Yes [id number] 150mg Take 1 [facility] 150 MG oral 3-27 tablet Seybol d Tablet 00:00: (150 mg - 00 total) by Externa mouth l nightly hydrALAZINE 2022-0 Yes [id number] 50mg Take 1 [facility] HCl 50 MG 3-27 tablet (50 Seyb old oral Tablet 00:00: mg total) - 00 by mouth 3 Externa times l daily Irbesartan 2022-0 Yes [id number] 150mg Take 1 [facility] 150 MG oral 3-27 tablet Seybol d Tablet 00:00: (150 mg - 00 total) by Externa mouth l nightly hydrALAZINE 2022-0 Yes [id number] 50mg Take 1 [facility] HCl 50 MG 3-27 tablet (50 Seyb old oral Tablet 00:00: mg total) - 00 by mouth 3 Externa times l daily Irbesartan 2022-0 Yes [id number] 150mg Take 1 [facility] 150 MG oral 3-27 tablet Seybol d Tablet 00:00: (150 mg - 00 total) by Externa mouth l nightly hydrALAZINE 2022-0 Yes [id number] 50mg Take 1 [facility] HCl 50 MG 3-27 tablet (50 Seyb old oral Tablet 00:00: mg total) - 00 by mouth 3 Externa times l daily Irbesartan 0 Yes [id number] 150mg Take 1 [facility] 150 MG oral 3-27 tablet Seybol d Tablet 00:00: (150 mg - 00 total) by Externa mouth l nightly hydrALAZINE 2022-0 Yes [id number] 50mg Take 1 [facility] HCl 50 MG 3-27 tablet (50 Seyb old oral Tablet 00:00: mg total) - 00 by mouth 3 Externa times l daily hydrALAZINE 2022-0 2022- No [id number] 50mg Take 1 [facility] HCl 50 MG 3-27 10-03 tablet (50 Sey bold oral Tablet 00:00: 00:00 mg total) - 00 :00 by mouth 3 Externa times l daily Gabapentin, 2022-0 2022- No 3{tbl} Take 3 K elsey Once-Daily, 3-13 03-13 tablets by Yoshi mayorga (Joseph) 14:05: 00:00 mouth as - 300 MG oral 49 :00 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 l Bumetanide Yes 1mg Take 1 mg Ke lsey 1 MG oral 3-13 by mouth Seybol d Tablet 13:58: daily - 43 Externa l Insulin Yes 30U Inject 30 Kelse y NPH, 3-13 units into Seybold Human,, 13:53: the skin 2 - Isophane, 32 times Externa 100 UNIT/ML daily l subcutaneou s Suspension Fluticasone 2022-0 Yes INHALE 1 Ke lonaey -Umeclidin- 3-13 PUFF ONCE Christina bold Vilant 13:43: DAILY FOR - (Trelegy 37 30 DAYS Externa Ellipta) l 200-62.5-25 MCG/ACT inhalation AEROSOL POWDER, BREATH ACTIVATED Spironolact 2022-0 Yes [id number] 25mg Take 1 [facility] one 25 MG 3-13 tablet (25 Seyb old oral Tablet 00:00: mg total) - 00 by mouth 2 Externa times l daily Montelukast 2022-0 Yes [id number] 10mg Take 1 [facility] (SINGULAIR) 3-13 tablet (10 Se ybold 10 MG oral 00:00: mg total) - Tablet 00 by mouth Externa tablet nightly l cloNIDine 2022-0 Yes [id number] 1{patch Apply 1 Chap[facility] 0.2 MG/24HR 3-13 } patch Seybold transdermal 00:00: topically - PATCH 00 every 7 Externa WEEKLY days l Spironolact 2022-0 Yes [id number] 25mg Take 1 [facility] one 25 MG 3-13 tablet (25 Seyb old oral Tablet 00:00: mg total) - 00 by mouth 2 Externa times l daily Montelukast 2022-0 Yes [id number] 10mg Take 1 [facility] (SINGULAIR) 3-13 tablet (10 Se ybold 10 MG oral 00:00: mg total) - Tablet 00 by mouth Externa tablet nightly l cloNIDine 3-0 Yes [id number] 1{patch Apply 1 [facility] 0.2 MG/24HR 3-13 } patch Seybold transdermal 00:00: topically - PATCH 00 every 7 Externa WEEKLY days l Spironolact 2022-0 Yes [id number] 25mg Take 1 [facility] one 25 MG 3-13 tablet (25 Seyb old oral Tablet 00:00: mg total) - 00 by mouth 2 Externa times l daily Montelukast 3-0 Yes [id number] 10mg Take 1 [facility] (SINGULAIR) 3-13 tablet (10 Se ybold 10 MG oral 00:00: mg total) - Tablet 00 by mouth Externa tablet nightly l cloNIDine 2023-0 Yes [id number] 1{patch Apply 1 [facility] 0.2 MG/24HR 3-13 } patch Seybold transdermal 00:00: topically - PATCH 00 every 7 Externa WEEKLY days l Spironolact 2022-0 Yes [id number] 25mg Take 1 [facility] one 25 MG 3-13 tablet (25 Seyb old oral Tablet 00:00: mg total) - 00 by mouth 2 Externa times l daily Spironolact 2022-0 Yes [id number] 25mg Take 1 [facility] one 25 MG 3-13 tablet (25 Seyb old oral Tablet 00:00: mg total) - 00 by mouth 2 Externa times l daily Spironolact 2022-0 Yes [id number] 25mg Take 1 [facility] one 25 MG 3-13 tablet (25 Seyb old oral Tablet 00:00: mg total) - 00 by mouth 2 Externa times l daily Spironolact 2022-0 Yes [id number] 25mg Take 1 [facility] one 25 MG 3-13 tablet (25 Seyb old oral Tablet 00:00: mg total) - 00 by mouth 2 Externa times l daily Montelukast 2022-0 Yes [id number] 10mg Take 1 [facility] (SINGULAIR) 3-13 tablet (10 Se ybold 10 MG oral 00:00: mg total) - Tablet 00 by mouth Externa tablet nightly l Gabapentin, 2022-0 Yes [id number] 1{tbl} Take 1 [facility] Once-Daily, 3-13 tablet by Christina johnson (Gralise) 00:00: mouth - 300 MG oral 00 daily Externa Tablet l cloNIDine 2022-0 Yes [id number] 1{patch Apply 1 [facility] 0.2 MG/24HR 3-13 } patch Seybold transdermal 00:00: topically - PATCH 00 every 7 Externa WEEKLY days l Spironolact 2022-0 Yes [id number] 25mg Take 1 [facility] one 25 MG 3-13 tablet (25 Seyb old oral Tablet 00:00: mg total) - 00 by mouth 2 Externa times l daily Montelukast 2022-0 Yes [id number] 10mg Take 1 [facility] (SINGULAIR) 3-13 tablet (10 Se ybold 10 MG oral 00:00: mg total) - Tablet 00 by mouth Externa tablet nightly l cloNIDine 0 Yes [id number] 1{patch Apply 1 [facility] 0.2 MG/24HR 3-13 } patch Seybold transdermal 00:00: topically - PATCH 00 every 7 Externa WEEKLY days l Montelukast 0 2022- No [id number] 10mg Take 1 [facility] (SINGULAIR) 3- 06-08 tablet (10 S eybold 10 MG oral 00:00: 00:00 mg total) - Tablet 00 :00 by mouth Externa tablet nightly l cloNIDine 0 2022- No [id number] 1{patch Apply 1 [facility] 0.2 MG/24HR 3-08 } patch Seybol d transdermal 00:00: 00:00 topically - PATCH 00 :00 every 7 Externa WEEKLY days l Carvedilol 0 Yes 12.5mg Take 1 [...] 2 l times daily Carvedilol 0 Yes 1{tbl} Take 1 Dashawn sey 12.5 MG 1-31 tablet by Seybold oral Tablet 00:00: mouth 2 - 00 times Externa daily l Carvedilol 0 Yes 12.5mg Take 1 Dashawn sey 12.5 MG 1-31 tablet Seybold oral Tablet 00:00: (12.5 mg - 00 total) by Externa mouth 2 l times daily Carvedilol 0 2022- No 12.5mg Take 1 Ke lsey 12.5 MG 1-31 06-08 tablet Seybold oral Tablet 00:00: 00:00 (12.5 mg - 00 :00 total) by Externa mouth 2 l times daily cloNIDine 2022- No PLACE 0.2 Ke lsey 0.2 MG/24HR 09-11 03-13 MG (1 Seybol d transdermal 00:00: 00:00 PATCH) - PATCH 00 :00 TOPICALLY Externa WEEKLY ONCE l WEEKLY Irbesartan- 2023- No 1{tbl} Take 1 K elsey hydroCHLORO 09-07-20 tablet by Se eulalia thiazide 00:00: 05:59 mouth - 150-12.5 MG 00 :00 daily Externa oral Tablet l Rosuvastati 2021-08 Yes 10mg Take 10 mg [facility] n Calcium 2-27 by mouth Seybol d 10 MG oral 00:00: daily - Tablet 00 Externa l Levothyroxi 2021-08 Yes 1{tbl} Take 1 Ke lsey ne Sodium 0-13 tablet by ybmarla ld 150 MCG 00:00: mouth - oral [...] ity of mg 08:00: 07:04 ONCE, 1 [place] 00 :00 dose, Fri Medical 10/08/20 at [...] Fri Medica l NaCl 0.9% 10/08/20 at [facility] (NS) 50 mL 0115, 50 piggyback mL [...] Zo Medica l NaCl 0.9% 10/07/20 at [facility] (NS) 50 mL 2230, 50 piggyback mL [...] dose, Zo Medica l mL) 10/07/20 at Branch injection 2215, 120 mL Routine HYDROcodone 2020- [...] dose, Zo Med ical 1:1:1 10/07/20 at [place] (FIRST-MOUT 0330, HWASH BLM) Routine oral suspension [...] SULFATE 2-18 ity of (PROAIR HFA 07:01: [place] INHALE) 41 Medical Branch amlodipine- Yes 1{capsu Take 1 Cap Univers benazepril 2-18 le} by mouth 2 ity of (LOTREL) 07:01: (two) [place] 5-20 mg per 41 times Medical capsule daily. [place] spironolact Yes 25mg Take 25 mg Univers one 2-18 by mouth ity of (SPIRONOLAC 07:01: daily. [place] TONE) 25 mg 41 Medical tablet Branch chlorthalid Yes 25mg Take 25 mg Univers one 2-18 by mouth ity of (HYGROTON) 07:01: daily. [place] 25 mg 41 Medical tablet [place] aspirin Yes 81mg Take 81 mg Univ ers (ADULT 2-18 by mouth ity of ASPIRIN 07:01: daily. [place] REGIMEN) 81 41 Medical mg EC Branch tablet escitalopra Yes 10mg Take 10 mg Univers m oxalate 2-18 by mouth ity of 10 mg 07:01: daily. [place] tablet 41 Medical Branch Fluticasone Yes 1{puff} Inhale 1 Univers -Salmeterol 2-18 Puff every it y of 100-50 07:01: 12 [place] mcg/dose 41 (twelve) Medical inhalation hours. [place] disk furosemide Yes 20mg Take 20 mg U nivers 20 mg 2-18 by mouth ity of tablet 07:01: daily. [place] [address] Medical Branch gabapentin Yes Take by Univ ers ER 300 mg 2-18 mouth ity of tablet, 07:01: daily. [place] extended 41 Medical release 24 Branch hr losartan 50 Yes 50mg Take 50 mg Univers mg tablet 2-18 by mouth ity of 07:01: daily. [place] [address] Medical Branch KCL 10 mEq Yes 8meq Take 8 mEq U nivers tablet 2-18 by mouth ity of 07:01: daily. [place] [address] Medical Branch spironolact Yes 1{tbl} Take 1 [...] SULFATE 2-18 ity of (PROAIR HFA 07:01: [place] INHALE) 41 Medical Branch amlodipine- Yes 1{capsu [...] by mouth ity of (HYGROTON) 07:01: daily. [place] 25 mg 41 Medical tablet Branch aspirin Yes 81mg Take 81 mg Univ ers (ADULT 2-18 by mouth ity of ASPIRIN 07:01: daily. [place] REGIMEN) 81 41 Medical mg EC Branch tablet escitalopra Yes 10mg Take 10 mg Univers m oxalate 2-18 by mouth ity of 10 mg 07:01: daily. [place] tablet 41 Medical Branch Fluticasone 2021-0 Yes 1{puff} Inhale 1 Univers -Salmeterol 2-18 Puff every it y of 100-50 07:01: 12 [place] mcg/dose 41 (twelve) Medical inhalation hours. Branch disk furosemide Yes 20mg Take 20 mg U nivers 20 mg 2-18 by mouth ity of tablet 07:01: daily. [place] [address] Medical Branch gabapentin Yes Take by [facility] ers ER 300 mg 2-18 mouth ity of tablet, 07:01: daily. [place] extended Medical release 24 Branch hr losartan 50 Yes 50mg Take 50 mg Univers mg tablet 2-18 by mouth ity of 07:01: daily. [place] [address] Medical Branch KCL 10 mEq Yes 8meq Take 8 mEq U nivers tablet 2-18 by mouth ity of 07:01: daily. [place] [address] Medical Branch spironolact Yes 1{tbl} Take 1 Un mohamud one-hydroch 2-18 tablet by ity of lorothiazid 07:01: mouth [place] e 50-50 mg 41 daily. Medical per tablet Branch INSULIN Yes 42U inject [facility]-18 Units ity of LISPRO 07:01: under the [place] (HUMALOG 41 skin 2 Medical MIX 75-25 (two) Branch SC) times daily with meals. metFORMIN Yes 1000mg Take 1,000 Univers (GLUCOPHAGE 2-18 mg by ity of ) 500 mg 07:01: mouth 2 [place] tablet 41 (two) Medical times Branch daily with meals. ALBUTEROL Yes Inhale. [facility] SULFATE 2-18 ity of (PROAIR HFA [...] by mouth ity of (HYGROTON) 07:01: daily. [place] 25 mg 41 Medical tablet Branch aspirin Yes 81mg Take 81 mg Univ ers (ADULT 2-18 by mouth ity of ASPIRIN 07:01: daily. [place] REGIMEN) 81 41 Medical mg EC Branch tablet escitalopra Yes 10mg Take 10 mg Univers m oxalate 2-18 by mouth ity of 10 mg 07:01: daily. [place] tablet 41 Medical Branch Fluticasone Yes 1{puff} Inhale 1 Univers -Salmeterol 2-18 Puff every it y of 100-50 07:01: 12 [place] mcg/dose 41 (twelve) Medical inhalation hours. Branch disk furosemide Yes 20mg Take 20 mg U nivers 20 mg 2-18 by mouth ity of tablet 07:01: daily. [place] [address] Medical Branch gabapentin Yes Take by [facility] ers ER 300 mg 2-18 mouth ity of tablet, 07:01: daily. [place] extended Medical release 24 Branch hr losartan 50 Yes 50mg Take 50 mg Univers mg tablet 2-18 by mouth ity of 07:01: daily. [place] [address] Medical Branch KCL 10 mEq Yes 8meq Take 8 mEq U nivers tablet 2-18 by mouth ity of 07:01: daily. [place] [address] Medical Branch spironolact Yes 1{tbl} Take 1 Un mohamud one-hydroch 2-18 tablet by ity of lorothiazid 07:01: mouth [place] e 50-50 mg 41 daily. Medical per tablet Branch INSULIN Yes 42U inject 42 Unive rs NPL/INSULIN 2-18 Units ity of LISPRO 01:01: under the [place] (HUMALOG 41 skin 2 Medical MIX 75-25 (two) Branch SC) times daily with meals. metFORMIN Yes 1000mg Take 1,000 Univers (GLUCOPHAGE 2-18 mg by ity of ) 500 mg 01:01: mouth 2 [place] tablet 41 (two) Medical times Branch daily with meals. ALBUTEROL Yes Inhale. Unive rs SULFATE 2-18 ity of (PROAIR HFA 01:01: [place] INHALE) 41 Medical Branch amlodipine- Yes 1{capsu [...] by mouth ity of ASPIRIN 01:01: daily. [place] REGIMEN) 81 41 Medical mg EC Branch tablet escitalopra Yes 10mg Take 10 mg Univers m oxalate 2-18 by mouth ity of 10 mg 01:01: daily. [place] tablet 41 Medical Branch Fluticasone Yes 1{puff} Inhale 1 Univers -Salmeterol 2-18 Puff every it y of 100-50 01:01: 12 [place] mcg/dose 41 (twelve) Medical inhalation hours. Branch disk furosemide Yes 20mg Take 20 mg U nivers 20 mg 2-18 by mouth ity of tablet 01:01: daily. [place] [address] Medical Branch gabapentin Yes Take by [facility] ers ER 300 mg 2-18 mouth ity of tablet, 01:01: daily. [place] extended 41 Medical release 24 Branch hr losartan 50 Yes 50mg Take 50 mg Univers mg tablet 2-18 by mouth ity of 01:01: daily. [place] [address] Medical Branch KCL 10 mEq Yes 8meq Take 8 mEq U nivers tablet 2-18 by mouth ity of 01:01: daily. [place] [address] Medical Branch spironolact Yes 1{tbl} Take 1 Un mohamud one-hydroch 2-18 tablet by ity of lorothiazid 01:01: mouth [place] e 50-50 mg 41 daily. Medical per tablet Branch pantoprazol Yes [id number] 40mg Take 1 Univers e 2-18 tablet by ity of (PROTONIX) 00:00: mouth [place] 40 mg EC 00 daily. Medical tablet Branch dicyclomine Yes [id number] 20mg Take 1 Univers 20 mg 2-18 tablet by ity of tablet 00:00: mouth [place] 00 every 6 Medical (six) Branch hours as needed for Abdominal pain. pantoprazol Yes [id number] 40mg Take 1 Univers e 2-18 tablet by ity of (PROTONIX) 00:00: mouth [place] 40 mg EC 00 daily. Medical tablet Branch dicyclomine Yes [id number] 20mg Take 1 Univers 20 mg 2-18 tablet by ity of tablet 00:00: mouth [place] 00 every 6 Medical (six) Branch hours as needed for Abdominal pain. pantoprazol Yes [id number] 40mg Take 1 Univers e 2-18 tablet by ity of (PROTONIX) 00:00: mouth [place] 40 mg EC 00 daily. Medical tablet Branch dicyclomine Yes [id number] 20mg Take 1 Univers 20 mg 2-18 tablet by ity of tablet 00:00: mouth [place] 00 every 6 Medical (six) Branch hours as needed for Abdominal pain. escitalopra Yes 10mg Take 10 mg Univers m oxalate 2-11 by mouth ity of 10 mg 14:26: daily. [place] tablet 58 Medical Branch Fluticasone Yes 1{puff} Inhale 1 Univers -Salmeterol 2-11 Puff every it y of 100-50 14:26: 12 [place] mcg/dose 58 (twelve) Medical inhalation hours. Branch disk furosemide Yes 20mg Take 20 mg U nivers 20 mg 2-11 by mouth ity of tablet 14:26: daily. [place] [address] Medical Branch gabapentin Yes Take by Uni vers ER 300 mg 2-11 mouth ity of tablet, 14:26: daily. [place] extended Medical release 24 Branch hr losartan 50 Yes 50mg Take 50 mg Univers mg tablet 2-11 by mouth ity of 14:26: daily. [place] [address] Medical Branch KCL 10 mEq Yes 8meq Take 8 mEq U nivers tablet 2-11 by mouth ity of 14:26: daily. [place] [address] Medical Branch spironolact Yes 1{tbl} Take 1 Un mohamud one-hydroch 2-11 tablet by ity of lorothiazid 14:26: mouth [place] e 50-50 mg 58 daily. Medical per tablet Branch aspirin Yes 81mg Take 81 mg Univ ers (ADULT 2-11 by mouth ity of ASPIRIN 14:26: daily. [place] REGIMEN) 81 58 Medical mg EC Branch tablet escitalopra Yes 10mg Take 10 mg Univers m oxalate 2-11 by mouth ity of 10 mg 14:26: daily. [place] tablet 58 Medical Branch Fluticasone Yes 1{puff} Inhale 1 Univers -Salmeterol 2-11 Puff every it y of 100-50 14:26: 12 [place] mcg/dose 58 (twelve) Medical inhalation hours. Branch disk furosemide Yes 20mg Take 20 mg U nivers 20 mg 2-11 by mouth ity of tablet 14:26: daily. [place] [address] Medical Branch gabapentin Yes Take by Univ ers ER 300 mg 2-11 mouth ity of tablet, 14:26: daily. [place] extended 58 Medical release 24 Branch hr losartan 50 Yes 50mg Take 50 mg Univers mg tablet 2-11 by mouth ity of 14:26: daily. [place] [address] Medical Branch KCL 10 mEq Yes 8meq Take 8 mEq U nivers tablet 2-11 by mouth ity of 14:26: daily. [place] [address] Medical Branch spironolact Yes 1{tbl} Take 1 Un mohamud one-hydroch 2-11 tablet by ity of lorothiazid 14:26: mouth [place] e 50-50 mg 58 daily. Medical per tablet Branch aspirin Yes 81mg Take 81 mg Univ ers (ADULT 2-11 by mouth ity of ASPIRIN 14:26: daily. [place] REGIMEN) 81 58 Medical mg EC Branch [...] SULFATE 2-11 ity of (PROAIR HFA 14:20: [place] INHALE) 29 Medical Branch amlodipine- Yes 1{capsu [...] by mouth ity of (HYGROTON) 14:20: daily. [place] 25 mg 29 Medical tablet Branch neomycin-po Yes PRN, Univer s lymyxin-dex 2-11 Starting ity of amethasone 14:19: Zo [place] (MAXITROL) 00 09/30/20 at [facility] ical 3.5 0819, [place] mg/g-10,000 Until unit/g-0.1 Discontinu % ed, ophthalmic Routine, ointment Intra-op tetracaine Yes PRN, Univers (PONTOCAINE 2-11 Starting ity of ) 0.5 % 14:19: Zo [place] ophthalmic 00 09/30/20 at Med ical drops 0819, [place] Until Discontinu ed, Routine, Intra-op water for 2021-0 Yes PRN, Univers irrigation 2-11 Starting ity o f irrigation 14:18: Zo [place] solution 00 09/30/20 at Medic al 0818, [place] Until Discontinu ed, Routine, Intra-op gentamicin 0 Yes PRN, Univers injection 09-30 Starting ity of 14:18: Zo [place] 00 09/30/20 at [facility] 0818, [place] Until Discontinu ed, ASHLEY, Intra-op EPINEPHrine 0 Yes PRN, Univer s (PF) 09-30 Starting ity of 1:1,000 (1 14:17: Zo [place] mg/mL) 00 09/30/20 at [facility] (ADRENALIN 0817, [place] (PF)) Until injection Discontinu ed, Routine, Intra-op DUOVISC 0 Yes PRN, Univers (DUOVISC 09-30 Starting ity of VISCO 14:17: Zo [place] ELASTIC) 3 09/30/20 at [facility] ical %-4 %(0.5 0817, [place] mL) 1 % Until (0.55 mL) Discontinu intraocular ed, injection Routine, Intra-op dexamethaso Yes PRN, Univer s ne 09-30 Starting ity of (DECADRON 14:08: Zo [place] PHOSPHATE) 09/30/20 at [facility] ical injection 0808, [place] Until Discontinu ed, Routine, Intra-op balanced Yes PRN, Univers salt soln 09-30 Starting ity of no.2 irrig. 14:07: Zo [place] (BSS) 00 09/30/20 at [facility] ophthalmic 0807, [place] solution Until Discontinu ed, Routine, Intra-op eye block 2020-0 Yes PRN, Univers syringe 11 09-30 Starting ity o f mL 14:00: Zo [place] 00 09/30/20 at [facility] 0800, [place] Until Discontinu ed, Intra-op propofoL IV 2020-0 2020- No ONCE INTRA Univers infusion 09-30 PROCEDURE, ity of 13:58: 14:23 Starting [place] 00 :22 Zo [facility] 09/30/20 at [place] 0758, Until Zo 09/30/20 at 0823, Routine, Intra-op lidocaine 2020-0 2020- No ONCE INTRA U nivers 1% 09-30 PROCEDURE, ity of (XYLOCAINE) 13:58: 14:23 Starting [place] 100 mg/10 00 :22 Zo Medical mL (1 %) 09/30/20 at [facility] h injection 0758, Until [...] Intra-op mydriatic 2020- No .5mL 0.5 mL, [facility] ers #5 09-30 Right Eye, ity of ophthalmic 13:15: 13:26 ONCE, 1 [place] as solution 00 :00 dose, [facility] Medica l 0.5 mL 09/30/20 at [place] syringe 0715, Routine, DSU Pre-op lactated 2020- No 1000mL at 42 Unive rs ringers IV 09-30 mL/hr, ity of infusion 13:15: 13:26 1,000 mL, [place] as 1,000 mL 00 :00 IV Medical Infusion, [place] ONCE, 1 dose, Zo 09/30/20 at 0715, Routine, DSU Pre-op metFORMIN Yes 1000mg Take 1,000 Univers (GLUCOPHAGE 2-11 mg by ity of ) 500 mg 13:01: mouth 2 [place] tablet 30 (two) Medical times [place] daily with meals. metFORMIN Yes 1000mg Take 1,000 Univers (GLUCOPHAGE 2-11 mg by ity of ) 500 mg 13:01: mouth 2 [place] tablet 30 (two) Medical times Branch daily with meals. metFORMIN Yes 1000mg Take 1,000 Univers (GLUCOPHAGE 2-09 mg by ity of ) 500 mg 19:58: mouth 2 [place] tablet 09 (two) Medical times Branch daily with meals. amlodipine- Yes 1{capsu Take 1 Cap Univers benazepril 2-09 le} by mouth 2 ity of (LOTREL) 19:58: (two) [place] 5-20 mg per 09 times Medical capsule daily. Branch losartan 50 Yes 50mg Take 50 mg Univers mg tablet 2-05 by mouth ity of 21:47: daily. [place] [address] Medical Branch KCL 10 mEq Yes 8meq Take 8 mEq U nivers tablet 2-05 by mouth ity of 21:47: daily. [place] [address] Medical Branch spironolact Yes 1{tbl} Take 1 Un mohamud one-hydroch 2-05 tablet by ity of lorothiazid 21:47: mouth [place] e 50-50 mg 58 daily. Medical per tablet Branch aspirin Yes 81mg Take 81 mg Univ ers (ADULT 2-05 by mouth ity of ASPIRIN 21:47: daily. [place] REGIMEN) 81 57 Medical mg EC Branch tablet escitalopra Yes 10mg Take 10 mg Univers m oxalate 2-05 by mouth ity of 10 mg 21:47: daily. [place] tablet 57 Medical Branch Fluticasone Yes 1{puff} Inhale 1 Univers -Salmeterol 2-05 Puff every it y of 100-50 21:47: 12 [place] mcg/dose 57 (twelve) Medical inhalation hours. Branch disk furosemide Yes 20mg Take 20 mg U nivers 20 mg 2-05 by mouth ity of tablet 21:47: daily. [place] [address] Medical Branch gabapentin 0 Yes Take by Univ ers ER 300 mg 2-05 mouth ity of tablet, 21:47: daily. [place] extended 57 Medical release 24 Branch hr ALBUTEROL Yes Inhale. Unive rs SULFATE 3-11 ity of (PROAIR HFA 13:13: [place] INHALE) 00 Medical Branch desloratadi 2014-0 Yes 5mg Take 1 Tab [...] 10 mg 00:00: [place] tablet Medical Branch montelukast Yes Univer s (SINGULAIR) 1-06 ity [...] 400 mg 00:00: [place] tablet Medical Branch NEXIUM 40 Yes Univers mg [...] ULTRA TEST 2-28 ity of strip 00:00: Medical Branch ONE TOUCH 2011-08 Yes Univers ULTRA TEST 2-28 ity of strip 00:00: Medical Branch ONE TOUCH 2011-08 Yes Univers ULTRA TEST 2-28 ity of strip 00:00: Medical Branch INSULIN 2011-08 Yes 42U inject 42 Unive rs NPL/INSULIN 2-14 Units ity of LISPRO 21:31: under the [place] (HUMALOG 46 skin 2 Medical MIX 75-25 (two) Branch SC) times daily with meals. spironolact 2011-08 Yes 25mg Take 25 mg Univers one 2-14 by mouth ity of (SPIRONOLAC 21:31: daily. [place] TONE) 25 mg 46 Medical tablet [...] Episcop drops,suspe drops,suspe drops,susp al nsion [facility] INSTILL 1 INSTILL 1 INSTILL 1 [...] al s pen s pen [facility] injector injector injector Out reac 0.5 ML [...] WITH Program MEALS Immunizations Ordered Immunization Filled Date Status Comments Sour ce Name Immunization Name Tdap- (Boostrix, 2022-12-18 Completed Chapis Belle eyvandanald Adacel) 00:00:00 - External Tdap- (Boostrix, 2022-12-18 [...] External adjuvanted Pneumococcal Vaccine, 2022-05-27 Completed Dashawn skinner Seybold Conjugate 7 00:00:00 - External Pneumococcal Vaccine, 2022-05-27 Completed Dashawn Cornelius Conjugate 20 00:00:00 - External Influenza Virus 2022-05-27 Completed Chapis esteban Vaccine, Quad, Egg 00:00:00 - Exte rnal Free Influenza vaccine, 2022-05-27 Completed [facility] Cornelius quadrivalent, 00:00:00 - External adjuvanted Pneumococcal Vaccine, 2022-05-27 Completed Dashawn skinner Seybold Conjugate 7 00:00:00 - External Pneumococcal [...] 65 And Up Pneumococcal Vaccine, 2015-07-14 Completed Dsahawn sey Seybold Polysaccharide 00:00:00 - External Influenza [...] - Ext ernal Age 65 And Up Influenza, Seasonal, Unknown Completed Muna ey Seybold Injectable, - External Preservative Free Influenza Virus Unknown Completed [facility] esteban Vaccine, Quad, Egg - Exte rnal Free Influenza Virus Unknown Completed [facility] esteban Vaccine, High Dose, - Ext ernal Age 65 And Up Influenza, Seasonal, Unknown Completed Muna romero Seybold Injectable - External Influenza vaccine, Unknown Completed [facility] Cornelius quadrivalent, - External adjuvanted, 65+ Influenza Virus Unknown Completed Chapis poolold Vaccine, High Dose, - Ext ernal Age 65 And Up Influenza Virus Unknown Completed Chapis esteban Vaccine, No Preserv, - Ex ternal age 6 months and up Shingles SQ Unknown Completed Chapis Barrientosol d (Zostavax) - External Pneumococcal Vaccine, Unknown Completed Dashawn skinner Seybold Polysaccharide - External Pneumococcal Vaccine, Unknown Completed Dashawn guamany Seybold Conjugate 7 - External Pneumococcal Vaccine, Unknown Completed Dashawn skinner Seybold Conjugate 20 - External Influenza Virus Unknown Completed Chapis esteban Vaccine, Unspecified - Ex ternal Formulation Tdap- (Boostrix, Unknown Completed Chapis S mukesh Adacel) - External Influenza Virus Unknown Completed Chapis esteban Vaccine, Quad, Egg - Exte rnal Free RSV, Arexvy Unknown Completed Chapis Barrientosol d - External Influenza, Seasonal, Unknown Completed Muna Cornelius Injectable, - External Preservative Free Influenza Virus Unknown Completed Chapis esteban Vaccine, Quad, Egg - Exte rnal Free Influenza Virus Unknown Completed Chapis esteban Vaccine, High Dose, - Ext ernal Age 65 And Up Influenza, Seasonal, Unknown Completed Muna Barrientosold Injectable - External Influenza vaccine, Unknown Completed Chapis Cornelius quadrivalent, - External adjuvanted, 65+ Influenza Virus Unknown Completed Chapis poolold Vaccine, High Dose, - Ext ernal Age 65 And Up Influenza Virus Unknown Completed Chapis poolold Vaccine, No Preserv, - Ex ternal age 6 months and up Shingles SQ Unknown Completed Chapis Barrientosol d (Zostavax) - External Pneumococcal Vaccine, Unknown Completed Dashawn skinner Seybold Polysaccharide - External Pneumococcal Vaccine, Unknown Completed Dashawn skinner Seybold Conjugate 7 - External Pneumococcal Vaccine, Unknown Completed Dashawn guamany Seybold Conjugate 20 - External Influenza Virus Unknown Completed Chapis poolold Vaccine, Unspecified - Ex ternal Formulation Tdap- (Boostrix, Unknown Completed Chapis romerobold Adacel) - External Influenza Virus Unknown Completed Chapis esteban Vaccine, Quad, Egg - Exte rnal Free RSV, Arexvy Unknown Completed Chapis Barrientosol d - External Vital Signs Vital Name Observation Time Observation Value Comments Source Systolic blood 2023-05-22 19:33:00 129 mm[Hg] Chapis Guamanybold - pressure External Diastolic blood 2023-05-22 19:33:00 82 mm[Hg] Darnell garcia Seybold - pressure External Heart rate 2023-05-22 19:33:00 57 /min Chapis Belle eybold - External Body temperature 2023-05-22 19:33:00 36.61 Mariaa Muna romero Seybold - External Respiratory rate 2023-05-22 19:33:00 15 /min Muna romero Seybold - External Body height 2023-05-22 19:33:00 157.5 cm Chapis Belle eybold - External Body weight 2023-05-22 19:33:00 121.11 kg Chapis Belle eybold - External BMI 2023-05-22 19:33:00 48.83 kg/m2 Chapis romerobold - External Oxygen saturation in 2023-05-22 19:33:00 99 /min Chapis Cornelius - Arterial blood by External Pulse oximetry Systolic blood 2023-02-13 18:14:00 159 mm[Hg] Chapis Guamanybold - pressure External Diastolic blood 2023-02-13 18:14:00 79 mm[Hg] Darnell garcia Seybold - pressure External Heart rate 2023-02-13 18:14:00 55 /min Chapis Belle eybold - External Body temperature 2023-02-13 18:14:00 36.67 Mariaa Muna romero Seybold - External Respiratory rate 2023-02-13 18:14:00 18 /min Muna romero Seybold - External Body height 2023-02-13 18:14:00 157.5 cm Chapis Belle eybold - External Body weight 2023-02-13 18:14:00 122.925 kg Chapis Belle eybold - External BMI 2023-02-13 18:14:00 49.57 kg/m2 Chapis Belle eybold - External Systolic blood 2023-01-25 14:56:00 145 mm[Hg] Chapis Seybold - pressure External Diastolic blood 2023-01-25 14:56:00 87 mm[Hg] Kelse y Seybold - pressure External Heart rate 2023-01-25 14:56:00 62 /min Chapis S eybold - External Body temperature 2023-01-25 14:56:00 36.56 Mariaa Muna ey Seybold - External Respiratory rate 2023-01-25 14:56:00 15 /min Muna ey Seybold - External Body height 2023-01-25 14:56:00 157.5 cm Chapis S eybold - External Body weight 2023-01-25 14:56:00 122.018 kg Chapis S eybold - External BMI 2023-01-25 14:56:00 49.20 kg/m2 Chapis S eybold - External Oxygen saturation in 2023-01-25 14:56:00 98 /min Chapis Seybold - Arterial blood by External Pulse oximetry Systolic blood 2023-01-04 13:06:00 162 mm[Hg] Chapis Seybold - pressure External Diastolic blood 2023-01-04 13:06:00 84 mm[Hg] Dashawnse y Seybold - pressure External Heart rate 2023-01-04 13:06:00 61 /min Chapis S eybold - External Body temperature 2023-01-04 13:06:00 36.61 Mariaa Muna ey Seybold - External Respiratory rate 2023-01-04 13:06:00 19 /min Muna ey Seybold - External Body height 2023-01-04 13:06:00 157.5 cm Chapis S eybold - External Body weight 2023-01-04 13:06:00 [...] External Diastolic blood 2022-10-30 18:34:00 86 mm[Hg] Dashawnse y Seybold - pressure External Heart rate 2022-10-30 18:34:00 63 /min Chapis S eybold - External Body temperature 2022-10-30 18:34:00 36.44 Mariaa Muna Cornelius - External Respiratory rate 2022-10-30 18:34:00 14 /min Muna Cornelius - External Body height 2022-10-30 18:34:00 157.5 cm Chapis romerobohima - External Body weight 2022-10-30 18:34:00 126.1 kg Chapis romerobold - External BMI 2022-10-30 18:34:00 50.85 kg/m2 Chapis romerobohima - External Oxygen saturation in 2022-10-30 18:34:00 96 /min Chapis Cornelius - Arterial blood by External Pulse oximetry BP Diastolic 2020-12-07 00:00:00 95 mm[Hg] [place] [facility] Height 2020-12-07 00:00:00 62 [in_i] [place] [facility] BMI (Body Mass 2020-12-07 00:00:00 53.4 kg/m2 [place]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 Heart rate 2020-10-08 09:00:00 73 /min [facility] Respiratory rate 2020-10-08 09:00:00 16 /min [facility] Oxygen saturation in 2020-10-08 09:00:00 97 /min University Arterial blood by [facility] Pulse oximetry Branch Body temperature 2020-10-08 03:15:00 37.44 Mariaa [facility] Body height 2020-10-08 03:15:00 160 cm [facility] Body weight 2020-10-08 03:15:00 136.079 kg [facility] BMI 2020-10-08 03:15:00 53.14 kg/m2 [facility] Systolic blood 2020-10-08 09:00:00 184 mm[Hg] Univer [facility]ity [facility] Diastolic blood 2020-10-08 09:00:00 68 mm[Hg] [facility]ive [facility] Heart rate 2020-10-08 09:00:00 73 /min [facility] Respiratory rate 2020-10-08 09:00:00 16 /min [facility] Oxygen saturation in 2020-10-08 09:00:00 97 /min University of Arterial blood by [facility] Pulse oximetry Branch Body temperature 2020-10-08 03:15:00 37.44 Mariaa [facility] Body height 2020-10-08 03:15:00 160 cm [facility] Body weight 2020-10-08 03:15:00 136.079 kg [facility] BMI 2020-10-08 03:15:00 53.14 kg/m2 [facility] Systolic blood 2020-10-07 11:00:00 198 mm[Hg] Univer sity of pressure [facility] Diastolic blood 2020-10-07 11:00:00 89 mm[Hg] Unive rsity of pressure [facility] Heart rate 2020-10-07 11:00:00 70 /min [facility] Respiratory rate 2020-10-07 11:00:00 13 /min [facility] Oxygen saturation in 2020-10-07 11:00:00 99 /min University of Arterial blood by [facility] Pulse oximetry Branch Body temperature 2020-10-07 [...] 2020-10-07 11:00:00 70 /min [facility] Respiratory rate 2020-10-07 11:00:00 13 /min Univ [facility] Oxygen saturation in 2020-10-07 11:00:00 99 /min University of Arterial blood by [facility] Pulse oximetry Branch Body temperature 2020-10-07 06:50:00 37.39 Mariaa [facility] Body weight 2020-10-07 06:50:00 136.079 kg [facility] BMI 2020-10-07 06:50:00 54.87 kg/m2 [facility] Systolic blood 2020-09-30 14:45:00 225 mm[Hg] Univer sity of pressure [facility] Diastolic blood 2020-09-30 14:45:00 97 mm[Hg] Unive rsity of pressure [facility] Heart rate 2020-09-30 14:45:00 63 /min [facility] Body temperature 2020-09-30 14:45:00 36.67 Mariaa [facility] Respiratory rate 2020-09-30 14:45:00 18 /min Univ [facility] Oxygen saturation in 2020-09-30 14:45:00 97 /min University of Arterial blood by [facility] Pulse oximetry Branch Body height 2020-09-28 19:45:00 157.5 cm [facility] Body weight 2020-09-28 19:45:00 136.079 kg [facility] BMI 2020-09-28 19:45:00 54.87 kg/m2 [facility] Systolic blood 2020-09-30 14:45:00 225 mm[Hg] Univer sity of pressure [facility] Diastolic blood 2020-09-30 14:45:00 97 mm[Hg] Unive rsity of pressure [facility] Heart rate 2020-09-30 14:45:00 63 /min [facility] Body temperature 2020-09-30 14:45:00 36.67 Mariaa [facility] Respiratory rate 2020-09-30 14:45:00 18 /min [facility] Oxygen saturation in 2020-09-30 14:45:00 97 /min [facility] Arterial blood by [facility] Pulse oximetry Branch Body height 2020-09-28 19:45:00 157.5 cm [facility] Body weight 2020-09-28 19:45:00 136.079 kg [facility] BMI 2020-09-28 19:45:00 54.87 kg/m2 [facility] Respiratory rate 2020-09-30 14:21:00 25 /min [facility] Respiratory rate 2020-09-30 14:21:00 25 /min [facility] Procedures Procedure Date / Time Performing Source Performed Clinician REAGENT STRIP/BLOOD GLUCOSE 2023-02-13 Outside, Reported Jesse shailesh Adryan - 00:00:00 External AUTHORIZATION FOR RELEASE OF 2022-10-03 Doctor Unassigned, [facility] PHI 06:01:00 [facility] MAMMO, screening, digital, 2020-12-07 [place] [facility] bilateral 00:00:00 [facility] Outreach Program URINALYSIS 2020-10-08 Mago Cobb [facility] ex 06:13:00 [facility] CT ABDOMEN PELVIS W CONTRAST 2020-10-08 [facility] 04[facility]13[facility] LIPASE 2020-10-08 Mago Cobb [facility] exas 03:39:00 [facility] TROPONIN I 2020-10-08 Mago Cobb [facility] ex 03:39:00 [facility] COMP. METABOLIC PANEL ([id number]) 2020-10-08 [facility] 03:39[facility]00 [facility] CBC WITH DIFF 2020-10-08 Mago Cobb [facility] ex 03:39:00 [facility] COVID-19 (ID NOW RAPID 2020-10-08 Mago Cobb [facility] TESTING) 03:39:00 [facility] CONSENT/REFUSAL FOR DIAGNOSIS 2020-10-08 Doctor Unassigned, [facility] AND TREATMENT 02:53:27 [facility] TROPONIN I 2020-10-07 Mago Cobb [facility] ex 10:05:00 Medical Branch URINALYSIS 2020-10-07 Mago Cobb [facility] ex 08:06:00 Medical Branch XR CHEST 1 VW 2020-10-07 Mago Cobb [facility] ex 07:56:15 Medical Branch LIPASE 2020-10-07 Mago Cobb [facility] ex 07:38:00 Medical Branch TROPONIN I 2020-10-07 [facility] ex 07:38:00 Medical Branch COMP. METABOLIC PANEL ([id number]) 2020-10-07 Mago Cobb [facility] 07:38:00 Medical Branch CBC WITH DIFF 2020-10-07 Mago Cobb [facility] ex 07:38:00 Medical Branch NOTICE OF PRIVACY PRACTICES 2020-10-07 Doctor Unassigned, [facility] 06:41:28 [facility] PHACOEMULSIFICATION OF 2020-09-30 Amarilis [facility] CATARACT WITH INTRAOCULAR 13:48:00 Brian Gillespie LENS IMPLANT POCT GLUCOSE(AGE >30DAYS) 2020-09-30 Eliazar Nicolas [facility] 13:36:00 [facility] POCT GLUCOSE (AUTOMATED) 2020-09-30 Amarilis [facility] 13:31:00 Brian [facility] DAY SURGERY - ADC 2020-09-30 Doctor Unassigned, [facility] 06:01:00 [facility] COVID-19 (ID NOW RAPID 2020-09-29 [facility] 15:54:00 [facility] Thyroidectomy [facility] Varicose phlebectomy [facility] Plan of Care Planned Activity Planned Date Details Comments Source Future Scheduled 2023-06-01 [facility] Test 01:59:51 malignant neoplasm of colon (procedure) [code = 989584415] Future Scheduled 2023-06-01 [facility] Test 01:59:51 malignant neoplasm of colon (procedure) [code = 986332638] Future Scheduled 2023-06-01 RSV VACCINES > 60 YR [facility] Test 01:59:51 (1 - 1-dose 60+ series) [code = RSV VACCINES > 60 YR (1 - 1-dose 60+ series)] Future Scheduled 2023-06-01 SHINGLES VACCINES (2 [facility] Test 01:59:51 of 3) [code = SHINGLES VACCINES (2 of 3)] Future Scheduled 2023-06-01 COVID-19 VACCINE (2 - [facility] Test 01:59:51 season) [code = COVID-19 VACCINE (2 - season)] Future Scheduled 2023-06-01 [facility]ZA [facility]ACCINE [facility] 01:59:51 (#1) [code = INFLUENZA VACCINE (#1)] Future Scheduled 2023-06-01 [facility] Test 01:59:51 malignant neoplasm of colon (procedure) [code = 291358235] Future Scheduled 2023-06-01 [facility] Test 01:59:51 malignant neoplasm of colon (procedure) [code = 609438551] Future Scheduled 2023-06-01 [facility] Test 01:59:51 malignant neoplasm of colon (procedure) [code = 611436737] Future Scheduled 2023-06-01 [facility] Test 01:59:51 malignant neoplasm of cervix (procedure) [code = 053898728] Future Scheduled 2023-06-01 BREAST CANCER [facility] Test 01:59:51 SCREENING [code = BREAST CANCER SCREENING] Future Scheduled 2023-03-23 SHINGLES VACCINES (2 [facility] Test 04:11:53 of 3) [code = SHINGLES VACCINES (2 of 3)] Future Scheduled 2023-03-23 COVID-19 VACCINE (2 - [facility] Test 04:11:53 Moderna series) [code = COVID-19 VACCINE (2 - Moderna series)] Future Scheduled 2023-03-23 [facility]ACCINE [facility] 04:11:53 [code = INFLUENZA VACCINE] Future Scheduled 2023-03-23 [facility] Test 04:11:53 malignant neoplasm of colon (procedure) [code = 951137548] Future Scheduled 2023-03-23 [facility] Test 04:11:53 malignant neoplasm of colon (procedure) [code = 839038769] Future Scheduled 2023-03-23 [facility] Test 04:11:53 malignant neoplasm of colon (procedure) [code = 570338427] Future Scheduled 2023-03-23 [facility] Test 04:11:53 malignant neoplasm of cervix (procedure) [code = 069871140] Future Scheduled 2023-03-23 BREAST CANCER [facility] Test 04:11:53 SCREENING [code = BREAST CANCER SCREENING] Future Scheduled 2023-03-23 [facility] Test 04:11:53 malignant neoplasm of colon (procedure) [code = 102625526] Future Scheduled 2023-03-23 [facility] Test 04:11:53 malignant neoplasm of colon (procedure) [code = 946445204] Future Scheduled 2023-02-08 [facility] Test 09:46:12 malignant neoplasm of colon (procedure) [code = 922792290] Future Scheduled 2023-02-08 [facility] Test 09:46:12 malignant neoplasm of colon (procedure) [code = 917675909] Future Scheduled 2023-02-08 [facility] Test 09:46:12 malignant neoplasm of colon (procedure) [code = 810100101] Future Scheduled 2023-02-08 [facility] Test 09:46:12 malignant neoplasm of cervix (procedure) [code = 179905410] Future Scheduled 2023-02-08 BREAST CANCER [facility] Test 09:46:12 SCREENING [code = BREAST CANCER SCREENING] Future Scheduled 2023-02-08 [facility] Test 09:46:12 malignant neoplasm of colon (procedure) [code = 126369018] Future Scheduled 2023-02-08 [facility] Test 09:46:12 malignant neoplasm of colon (procedure) [code = 625180825] Future Scheduled 2023-02-08 SHINGLES VACCINES (2 [facility] 09:46:12 of 3) [code = SHINGLES VACCINES (2 of 3)] Future Scheduled 2023-02-08 [facility]19 [facility] 09:46:12 Moderna series) [code = COVID-19 VACCINE (2 - Moderna series)] Future Scheduled 2023-02-08 [facility]ZA [facility]ACCINE [facility] 09:46:12 [code = INFLUENZA VACCINE] Future Scheduled 2022-12-27 [facility] Test 11:36:12 malignant neoplasm of cervix (procedure) [code = 718094833] Future Scheduled 2022-12-27 BREAST CANCER [facility] Test 11:36:12 SCREENING [code = BREAST CANCER SCREENING] Future Scheduled 2022-12-27 COLONOSCOPY SCREENING [facility] Test 11:36:12 [code = COLONOSCOPY SCREENING] Future Scheduled 2022-12-27 SHINGLES VACCINES (2 [facility] Test 11:36:12 of 3) [code = SHINGLES VACCINES (2 of 3)] Future Scheduled 2022-12-27 COVID-19 VACCINE (2 - [facility] Test 11:36:12 Moderna series) [code = COVID-19 VACCINE (2 - Moderna series)] Future Scheduled 2022-12-27 [facility]ZA [facility]ACCINE [facility] 11:36:12 [code = INFLUENZA VACCINE] Diagnostic Test 2020-12-07 bacterial vaginosis [place] Pending 00:00:00 panel, vaginal [code [facility] = bacterial vaginosis [facility]rea [facility] Program panel, vaginal] Diagnostic Test 2020-12-07 pap, IG + HPV, [place] Pending 00:00:00 cervical [code = pap, [facility] IG + HPV, cervical] Outreach Program Future Scheduled COVID-19 VACCINE (1) [facility] Test [code = COVID-19 VACCINE (1)] Future Scheduled [facility] Test malignant neoplasm of cervix (procedure) [code = 751311478] Future Scheduled BREAST CANCER [facility] Test SCREENING [code = BREAST CANCER SCREENING] Future Scheduled COLONOSCOPY SCREENING [facility] Test [code = COLONOSCOPY SCREENING] Future Scheduled [facility] (#1) [code = SHINGLES VACCINES (#1)] Future Scheduled IN[facility]ENZA VACCINE [facility] Test [code = INFLUENZA VACCINE] Encounters Start End Encounter Admission Attending Care Care Encounter Source Date/Time Date/Time Type Type Clinicians Facility Department ID 2023-04-25 Outpatient Beverley [facility] [id number] Common 14:44:01 Irvin [id number] [facility] 2021-06-19 Outpatient Nilson LARA [facility] OPH [id number] Univers 12:22:23 MIGUEL [facility] 2021-06-19 Emergency X [facility] [id number] Univers 00:01:29 [facility] 2021-06-18 Outpatient Nilson LARA, [facility] SWETA [id number] Univers 21:15:39 MIGUEL [facility] 2023-08-29 2023-08-29 Outpatient CHAPIS PIPER [id number] [facility] 09:00:00 09:00:00 HAYDEN Seybol d 2023-08-22 2023-08-22 Outpatient CHAPIS LOWERY [id number] [facility] 09:45:00 09:45:00 IRVIN Seybol d 2023-08-14 2023-08-14 Outpatient CHAPIS PIPER [id number] [facility] 15:00:00 15:00:00 HAYDEN Seybol d 2023-07-11 2023-07-11 Outpatient CHAPIS PORRAS [id number] [facility] 14:15:00 14:15:00 QUOCDAI Seybol d 2023-07-06 2023-07-06 Outpatient TALON ANN [id number] Chapis 08:30:00 08:30:00 N, Seybol d RENALDO 2023-06-14 2023-06-14 Outpatient CHAPIS AZUL [id number] [facility] 13:00:00 13:00:00 JINU Seybol d 2023-06-14 2023-06-14 Outpatient CHAPIS LOWERY [id number] Chapis 00:00:00 00:00:00 IRVIN Seybol d 2023-06-13 2023-06-13 Outpatient CHAPIS NAVARRO [id number] Chapis 10:30:00 10:30:00 JALAJA Seybol d 2023-06-08 2023-06-08 Outpatient CHAPIS LOWERY [id number] Chapis 00:00:00 00:00:00 IRVIN Seybol d 2023-06-06 2023-06-06 Outpatient CHAPIS LOWERY [id number] Chapis 00:00:00 00:00:00 IRVIN Seybol d 2023-06-05 2023-06-05 Outpatient TOMOGRAPHY, CHAPIS ANN [id number] Chapis 09:50:00 09:50:00 FBMDC Seybol d 2023-06-05 2023-06-05 Outpatient PIPERCHAPIS [id number] Chapis 08:20:00 08:20:00 HAYDEN Seybol d 2023-06-05 2023-06-05 Outpatient PREZAS, CHAPIS ANN [id number] Chapis 00:00:00 00:00:00 IRVIN Seybol d 2023-05-28 2023-05-28 Outpatient PREZAS, CHAPIS ANN [id number] Chapis 00:00:00 00:00:00 IRVIN Seybol d 2023-05-28 2023-05-28 Outpatient CHAPIS ANN [id number] Chapis 00:00:00 00:00:00 Seybol d 2023-05-23 2023-05-23 Outpatient CHRISTINE, CHAPIS ANN [id number] Chapis 00:00:00 00:00:00 KD Seybol d 2023-05-22 2023-05-22 Outpatient PREZACHAPIS Belle [id number] Chapis 14:30:00 14:30:00 IRVIN Seybol d 2023-05-21 2023-05-21 Outpatient PREZAS, CHAPIS ANN [id number] Chapis 00:00:00 00:00:00 IRVIN Seybol d 2023-05-21 2023-05-21 Outpatient PREZASCHAPIS [id number] Chapis 00:00:00 00:00:00 IRVIN Seybol d 2023-05-18 2023-05-18 Outpatient LAB90 CHAPIS ANN [id number] Chapis 12:45:00 12:45:00 Seybol d 2023-05-16 2023-05-16 Outpatient PREZAS, CHAPIS ANN [id number] Chapis 00:00:00 00:00:00 IRVIN Seybol d 2023-05-10 2023-05-10 Outpatient PARASCHAPIS [id number] Chapis 09:50:00 09:50:00 JACK Seybol d 2023-05-07 2023-05-07 Outpatient PREZACHAPIS Belle [id number] Chapis 00:00:00 00:00:00 IRVIN Seybol d 2023-05-07 2023-05-07 Outpatient PREZASCHAPIS [id number] Chapis 00:00:00 00:00:00 IRVIN Seybol d 2023-05-03 2023-05-03 Outpatient PREZASCHAPIS [id number] Chapis 00:00:00 00:00:00 IRVIN Seybol d 2023-04-27 2023-04-27 Outpatient PREZACHAPIS Belle [id number] Chapis 09:30:00 09:30:00 IRVIN Seybol d 2023-04-19 2023-04-19 Outpatient CHAPIS LUDWIG [id number] Chapis 00:00:00 00:00:00 MOHAMMED Seybo ld 2023-04-12 2023-04-12 Outpatient LAB90 CHAPIS ANN [id number] Chapis 10:40:00 10:40:00 Seybol d 2023-04-11 2023-04-11 Outpatient PRECHAPIS OHARA [id number] Chapis 00:00:00 00:00:00 IRVIN Seybol d 2023-04-11 2023-04-11 Outpatient CHAPIS ANN [id number] Chapis 00:00:00 00:00:00 Seybol d 2023-04-04 2023-04-04 Outpatient CHAPIS ANN [id number] Chapis 00:00:00 00:00:00 Seybol d 2023-04-02 2023-04-02 Outpatient CHAPIS ANN [id number] Chapis 00:00:00 00:00:00 Seybol d 2023-03-30 2023-03-30 Outpatient PRECHAPIS OHARA [id number] Chapis 00:00:00 00:00:00 IRVIN Seybol d 2023-03-26 2023-03-26 Outpatient PREZACHAPIS Belle [id number] Chapis 00:00:00 00:00:00 IRVIN Seybol d 2023-03-26 2023-03-26 Outpatient PREZAS, CHAPIS ANN [id number] Chapis 00:00:00 00:00:00 IRVIN Seybol d 2023-03-06 2023-03-06 Outpatient AHMED, CHAPIS ANN [id number] Chapis 00:00:00 00:00:00 MOHAMMED Seybo ld 2023-03-04 2023-03-04 Outpatient PREZAS, CHAPIS ANN [id number] Chapis 00:00:00 00:00:00 IRVIN Seybol d 2023-03-02 2023-03-02 Outpatient LAB90 CHAPIS ANN [id number] Chapis 10:50:00 10:50:00 Seybol d 2023-02-28 2023-02-28 Outpatient CHAPIS ANN [id number] Chapis 00:00:00 00:00:00 Seybol d 2023-02-23 2023-02-23 Outpatient PREZAS, CHAPIS ANN [id number] Chapis 00:00:00 00:00:00 IRVIN Seybol d 2023-02-23 2023-02-23 Outpatient CHAPIS ANN [id number] Chapis 00:00:00 00:00:00 Seybol d 2023-02-22 2023-02-22 Outpatient SANDRA, YOUNG CHAPIS ANN [id number] Chapis 16:15:00 16:15:00 Seybol d 2023-02-22 2023-02-22 Outpatient LAB90 CHAPIS ANN [id number] Chapis 15:40:00 15:40:00 Seybol d 2023-02-22 2023-02-22 Outpatient PREZAS, CHAPIS ANN [id number] [facility]is 00:00:00 00:00:00 IRVIN Seybol d 2023-02-22 2023-02-22 Outpatient PREZAS, CHAIPS ANN [id number] Chapis 00:00:00 00:00:00 IRVIN Seybol d 2023-02-22 2023-02-22 Outpatient CHAPIS ANN [id number] Chapis 00:00:00 00:00:00 Seybol d 2023-02-22 2023-02-22 Outpatient PREZAS, CHAPIS ANN [id number] Chapis 00:00:00 00:00:00 IRVIN Seybol d 2023-02-19 2023-02-19 Outpatient PREZAS, CHAPIS ANN [id number] Chapis 00:00:00 00:00:00 IRVIN Seybol d 2023-02-16 2023-02-16 Outpatient CHRISTINE, CHAPIS ANN [id number] Chapis 00:00:00 00:00:00 KD Seybol d 2023-02-14 2023-02-14 Outpatient PREZAS, CHAPIS ANN [id number] Chapis 00:00:00 00:00:00 IRVIN Seybol d 2023-02-13 2023-02-13 Outpatient LAB47 CHAPIS ANN [id number] Chapis 14:15:00 14:15:00 Seybol d 2023-02-13 2023-02-13 Outpatient KING, CHAPIS ANN [id number] Chapis 13:30:00 13:30:00 ROBERTO Seybol d 2023-02-08 2023-02-08 Outpatient CHAPIS CRAIN [id number] Chapis 10:20:00 10:20:00 JACK Seybol d 2023-01-30 2023-01-30 Outpatient CHAPIS CRAIN [id number] Chapis 10:30:00 10:30:00 JACK Seybol d 2023-01-29 2023-01-29 Outpatient PREZAS, CHAPIS ANN [id number] Chapis 00:00:00 00:00:00 IRVIN Seybol d 2023-01-29 2023-01-29 Outpatient PREZASCHAPIS [id number] Chapis 00:00:00 00:00:00 IRVIN Seybol d 2023-01-27 2023-01-27 Outpatient PREZASCHAPIS [id number] Chapis 00:00:00 00:00:00 IRVIN Seybol d 2023-01-25 2023-01-25 Outpatient LAB90 CHAPIS ANN [id number] Chapis 10:45:00 10:45:00 Seybol d 2023-01-25 2023-01-25 Outpatient PREZACHAPIS Belle [id number] Chapis 10:00:00 10:00:00 IRVIN Seybol d 2023-01-23 2023-01-23 Outpatient KINGCHAPIS [id number] Chapis 14:15:00 14:15:00 ROBERTO Seybol d 2023-01-23 2023-01-23 Outpatient AHMEDCHAPIS [id number] Chapis 00:00:00 00:00:00 MOHAMMED Seybo ld 2023-01-18 2023-01-18 Outpatient PRECHAPIS OHARA [id number] Chapis 00:00:00 00:00:00 IRVIN Seybol d 2023-01-18 2023-01-18 Outpatient PRECHAPIS OHARA [id number] Chapis 00:00:00 00:00:00 IRVIN Seybol d 2023-01-18 2023-01-18 Outpatient PREZASCHAPIS [id number] Chapis 00:00:00 00:00:00 IRVIN Seybol d 2023-01-07 2023-01-07 Outpatient PRECHAPIS OHARA [id number] Chapis 00:00:00 00:00:00 IRVIN Seybol d 2023-01-04 2023-01-04 Outpatient LAB90 CHAPIS ANN [id number] Chapis 09:00:00 09:00:00 Seybol d 2023-01-04 2023-01-04 Outpatient PREZASCHAPIS [id number] Chapis 08:15:00 08:15:00 IRVIN Seybol d 2023-01-04 2023-01-04 Outpatient PREZACHAPIS Belle [id number] Chapis 00:00:00 00:00:00 IRVIN Seybol d 2023-01-04 2023-01-04 Outpatient CHAPIS ANN [id number] Chapis 00:00:00 00:00:00 Seybol d 2023-01-01 2023-01-01 Outpatient CHAPIS AZUL [id number] Chapis 00:00:00 00:00:00 KAYLIE Seybol d 2023-01-01 2023-01-01 Outpatient CHAPIS ANN [id number] Chapis 00:00:00 00:00:00 Seybol d 2022-12-28 2022-12-28 Outpatient CHAPIS AZUL [id number] Chapis 10:00:00 10:00:00 JINU Seybol d 2022-12-28 2022-12-28 Outpatient [facility] [id number] [place] 00:00:00 00:00:00 SSA 60818 da [facility] 2022-12-27 2022-12-27 Outpatient PRECHAPIS OHARA [id number] Chapis 00:00:00 00:00:00 IRVIN Seybol d 2022-12-25 2022-12-25 Outpatient CHAPIS AZUL [id number] Chapis 00:00:00 00:00:00 JINU Seybol d 2022-12-25 2022-12-25 Outpatient PREZACHAPIS Belle [id number] Chapis 00:00:00 00:00:00 IRVIN Seybol d 2022-12-24 2022-12-24 Outpatient PREZACHAPIS Belle [id number] Chapis 00:00:00 00:00:00 IRVIN Seybol d 2022-12-21 2022-12-21 Outpatient FB, TECH CHAPIS ANN [id number] Chapis 14:00:00 14:00:00 Seybol d 2022-12-20 2022-12-20 Outpatient JIMMIECHAPIS [id number] Chapis 00:00:00 00:00:00 JEAN CARLOS Seybo ld 2022-12-18 2022-12-18 Outpatient PREZACHAPIS Belle [id number] Chapis 13:45:00 13:45:00 IRVIN Seybol d 2022-12-11 2022-12-11 Outpatient PREZACHAPIS Belle [id number] Chapis 00:00:00 00:00:00 IRVIN Seybol d 2022-12-11 2022-12-11 Outpatient JIMMIE, CHAPIS ANN [id number] Chapis 00:00:00 00:00:00 JEAN CARLOS Seybo ld 2022-12-06 2022-12-06 Outpatient PREZAS, CHAPIS ANN [id number] Chapis 00:00:00 00:00:00 IRVIN Seybol d 2022-12-06 2022-12-06 Outpatient PREZAS, CHAPIS ANN [id number] Chapis 00:00:00 00:00:00 IRVIN Seybol d 2022-12-05 2022-12-05 Outpatient JIMMIE, CHAPIS ANN [id number] Chapis 14:00:00 14:00:00 JEAN CARLOS Seybo ld 2022-12-05 2022-12-05 Outpatient MYKELSEYONL CHAPIS ANN [id number] Chapis 00:00:00 00:00:00 MD RAJ Seybol d 2022-12-05 2022-12-05 Outpatient MELANIE, CHAPIS ANN [id number] Chapis 00:00:00 00:00:00 SYLVIA Seybol d 2022-12-01 2022-12-01 Outpatient LATHA, CHAPIS ANN [id number] Chapis 10:30:00 10:30:00 JINU Seybol d 2022-11-22 2022-11-22 Outpatient JIMMIE, CHAPIS ANN [id number] Chapis 10:00:00 10:00:00 JEAN CARLOS Seybo ld 2022-11-21 2022-11-21 Outpatient CHAPIS ANN [id number] Chapis 13:45:00 13:45:00 Seybol d 2022-11-20 2022-11-20 Outpatient PREZAS, CHAPIS ANN [id number] Chapis 13:45:00 13:45:00 IRVIN Seybol d 2022-11-20 2022-11-20 Outpatient PREZAS, CHAPIS ANN [id number] Chapis 00:00:00 00:00:00 IRVIN Seybol d 2022-11-14 2022-11-14 Outpatient PREZAS, CHAPIS ANN [id number] Chapis 00:00:00 00:00:00 IRVIN Seybol d 2022-11-13 2022-11-13 Outpatient CHAPIS AZUL CHAPIS [id number] Chapis 10:00:00 10:00:00 JINU Seybol d 2022-11-13 2022-11-13 Outpatient TRED45 CHAPIS CHAPIS [id number] Chapis 10:00:00 10:00:00 Seybol d 2022-11-10 2022-11-10 Outpatient LAB90 CHAPIS ANN [id number] Chapis 11:05:00 11:05:00 Seybol d 2022-11-09 2022-11-09 Outpatient PRELEV CHAPIS ANN [id number] Chapis 00:00:00 00:00:00 IRVIN Seybol d 2022-10-30 2022-10-30 Outpatient SCOOBYLEV CHAPIS ANN [id number] Chapis 13:45:00 13:45:00 IRVIN Seybol d 2022-10-26 2022-10-26 Outpatient BEVERLEY CHAPIS ANN [id number] Chapis 00:00:00 00:00:00 IRVIN Seybol d 2022-10-03 2022-10-03 Orders Doctor ROBERT [id number] Univers 00:00:00 00:00:00 Only Unassigned, ELIESER 350.1.13.10 ity of [facility] 4.2.7.2.686 [place] [id number] [address] 2022-01-24 2022-01-24 Outpatient Nilson [facility] [id number] Univers 14:30:00 14:30:00 ENRIKE [facility] 2021-03-02 2021-03-02 Outpatient ELY_KOKO URBINA [facility] [id number] [place] 02:42:00 02:42:00 63425 da [facility] Program 2020-12-08 2020-12-08 Outpatient Nilson [facility] [id number] Univers 10:45:00 10:45:00 MIGUEL [facility] 2020-12-07 2020-12-07 Outpatient ELY_KOKO URBINA [facility] [id number] [place] 01:00:00 01:00:00 [id number] [facility] 2020-12-07 2020-12-07 Koko [facility] [place] - [id number] M atagor 00:00:00 00:00:00 Kendell Henning MD: [facility] [address] [facility] julian Oanh, [facility] [place] Outreac [address] h , Ph. Program 2020-11-18 2020-11-18 Outpatient ELY_KOKO [facility] [id number] [place] 11:13:00 11:13:00 [id number] [facility] 2020-11-17 2020-11-17 Outpatient ELY_KOKO [facility] [id number] [place] 04:26:00 04:26:00 [id number] [facility] 2020-10-07 2020-10-08 [facility] [id number] Univers 21:06:00 03:35:00 [place]christie [place] 350.1.13.10 ity of [place] 4.2.7.2.[address] [place] [id number] 2020-10-07 2020-10-08 [facility] [id number] 21:06:00 03:35:00 Mago Belle [place] 350.1.13.10 [place] [address] [place] [address] [id number] [facility] 2020-10-07 2020-10-07 [facility] [id number] [facility] 01:01:00 06:15:00 Rogerericchris S [place] 350.1.13.10 ity [facility] 4.2.7.2.[address] [place] [id number] 2020-10-07 2020-10-07 Emergency [facility] [id number] Univers 01:01:00 06:15:[address] [facility] 2020-10-07 2020-10-07 Emergency [facility] [id number] 01:01:00 06:15:00 Mago Belle Manpreet 350.1.13.10 [place] 4.2.7.2.686 [place] [id number] 084 2020-09-30 2020-09-30 [facility] 1.2.840.114 [id number] [facility] 07:01:00 09:00:00 Encounter Miguel Manpreet 350.1.13.10 ity [place] [id number] [address] 2020-09-30 2020-09-30 [facility] 1.2.840.114 [id number] 07:01:00 09:00:00 Encounter Miguel Case 350.1.13.10 [place] 4.2.7.2.686 Surgical [id number] [place] [address] 2020-09-30 2020-09-30 [facility] 1.2.840.11 [id number] [facility] 07:53:00 08:23:00 Michael Ryan 350.1.13.10 ity [place] 4[place] [id number] [facility] [address] [place] 2020-09-30 2020-09-30 [facility] 1.2.840.11 [id number] 07:53:00 08:23:00 Michael Ryan 350.1.13.10 [place] 4.2.7.2.686 Surgical [phone] [place] [address] 2020-09-30 2020-09-30 Orders Doctor JONES 1.2.840.114 [id number] [facility] 00:00:00 00:00:00 Only Unassigned, ELIESER 350.1.13.10 ity of [place] [facility] 4.2.7.2.686 [place] [phone] [address] 2020-09-30 2020-09-30 Orders Doctor JONES 1.2.840.114 [id number] 00:00:00 00:00:00 Only Unassigned, ELIESER 350.1.13.10 [place] [facility] 4.2.7.2.686 [id number] 009 2020-09-29 2020-09-29 Laboratory Only, [facility] Test [facility] 1.2.840. 114 [id number] Univers 09:40:08 09:55:08 Only Amarilis Miguel Case 350.1.1 3.10 ity [facility] 4.2.7.2.686 [facility] [id number] [address] 2020-09-29 2020-09-29 Laboratory Only, [facility] 1.2.840.114 [id number] 09:40:08 09:55:08 Only Test Manpreet 350.1.13.10 [place] 4.2.7.2.686 [place] [id number] 2020-09-29 2020-09-29 Outpatient Nilson [facility] [id number] Univers 09:15:00 09:15:[address] [facility] 2020-09-21 2020-09-21 Outpatient Nilson [facility] [id number] Univers 11:15:00 11:15:00 MIGUEL [facility] 2020-07-07 2020-07-07 Outpatient Michael [facility] [place] 02:18:00 02:18:00 1118 [facility] Group 2018-07-08 2018-07-08 Ambulatory nullFlavo MNA [id number] Memoria 16:00:00 16:00:00 Pre-Reg r Neurology 02 l Franky Barrera 2018-07-08 2018-07-08 Ambulatory nullFlavo MNA [id number] Memoria 16:00:00 16:00:00 Pre-Reg r Neurology 02 l Franky Barrera 2018-07-08 2018-07-08 Outpatient MHIE MHIE [id number] Memoria 10:00:00 10:00:00 Saad Barrera 2018-07-08 2018-07-08 Outpatient KARL Hollis [id number] 10:00:00 10:00:00 Raz Murillo 2018-04-10 2018-04-10 Outpatient MHIE MHIE [id number] Memoria 16:00:00 16:00:00 01 salvador Barrera 2018-04-10 2018-04-10 Outpatient JARON SALMERON [id number] Memoria 16:00:00 16:00:00 01 salvador Barrera 2018-03-06 2018-03-06 Outpatient JARON SALMERON [id number] Memoria 13:30:00 13:30:00 00 salvador Barrera 2018-03-06 2018-03-06 Outpatient JARON SALMERON [id number] Memoria 13:30:00 13:30:00 00 salvador Barrera Results Test Description Test Time Test Comments Results Result Comments Source REAGENT STRIP/BLOOD GLUCOSE 2023-02-13 00:00:00 Test Item Value Reference Range Interpretation Comme nts BLOOD SUGAR (test code = 964027) 167 mg/dL 65-99 A Lab Interpretation (test code = 77996-8) Abnormal Chapis Seybold - [id number] 07:39:00 Test Item Value Reference Range Interpretation Comments APPEARANCE (test code = Clear Clear 5028164287) COLOR (test code = Straw Yellow A 9144468525) PH (test code = 4.8-8.0 5241881471) SP GRAVITY (test code = 1.003-1.030 9041036049) GLU U QUAL (test code = Normal Normal 0902351549) BLOOD (test code = Negative Negative 1770888082) KETONES (test code = Negative Negative 1054408619) PROTEIN (test code = 100 mg/dL Negative A 2887-8) UROBILIN (test code = Normal Normal 4515069525) BILIRUBIN (test code = Negative Negative 2410428739) NITRITE (test code = Negative Negative 0430445262) LEUK ARVIN (test code = Negative Negative 6150087283) RBC/HPF (test code = See_Comment [Autom ated message] 4932290713) The system [employer] generated this result transmit erika reference range : 0 - 3 HPF. The refe rence range was not u sed to interpret th is result as normal/abnormal . WBC/HPF (test code = See_Comment [Autom ated message] 3554091774) The system [employer] generated this result transmit erika reference range : 0 - 5 HPF. The refe rence range was not u sed to interpret th is result as normal/abnormal . BACTERIA (test code = Few Negative A 6177956828) SQ EPITH (test code = HPF 2296140799) TRANS EPI (test code = <1 See_Comment [Aut omated message] 0678435558) The system [employer] generated this result transmit erika reference range : <=1 HPF. The refere nce range was not u sed to interpret th is result as normal/abnormal . Lab Interpretation (test Abnormal code = 79113-4) [facility] W [id number] 04:45:[address] findings to [...] reviewed this study and agree withthe above report.[facility] CenterYAMILETFORMERLY [facility] [id number] 04:13:00 Test Item Value Reference Range Interpretation Comments TROPONIN I (test 0.040 ng/mL See_Comment H [Automated code = 1588661249) message] The system which generated this result [...] ? Lab Interpretation Abnormal (test code = 92777-3) [facility] CenterCOVID-[facility] (ID NOW RAPID TESTING)2020-10-08 04:03:00 Test Item Value Reference Range Interpretation Comments SARS-CoV-2 Rapid ID NOW Not Detected Not Detected (test code = 56316-3) ANDREW (test code = ANDREW) ID NOW COVID-19 Assay is an isothermal nucleic acid amplification test intended for the qualitative detection of nucleic acid from SARS-CoV-2 viral RNA in nasopharyngeal (FRONT END DEVELOPER DESIGNER) specimens. It is used under Emergency Use [...] indicated. Lab Interpretation Normal (test code = 72096-2) [facility] CenterCOM. METABOLIC PANEL (43505)2020-10-08 04:02:00 Test Item Value Reference Range Interpretation Comments NA (test code = 134 mmol/L 135-145 L 2662404257) K (test code = 4.2 mmol/L 3.5-5 0356180130) CL (test code = 98 mmol/L 98-108 3150993308) CO2 TOTAL (test code = 34 mmol/L 23-31 H 6077293515) AGAP (test code = 2-16 7359354613) BUN (test code = 33 mg/dL 7-23 H 5600365392) GLUCOSE (test code = 100 mg/dL 70-110 8016348436) CREATININE (test code = 1.41 mg/dL 0.5-1.04 H 2647193341) TOTAL BILI (test code = 0.5 mg/dL 0.1-1.2 0489977230) CALCIUM (test code = 9.1 mg/dL 8.6-10.6 3646138340) T PROTEIN (test code = 7.3 g/dL 6.3-8.2 8560777912) ALBUMIN (test code = 3.7 g/dL 3.5-5 7655015276) ALK PHOS (test code = 78 U/L 34-122 9628747122) ALTv (test code = 15 U/L 5-35 1742-6) AST(SGOT) (test code = 24 U/L 13-40 0825240111) eGFR Calculation mL/min/1.73m2 (Non-) (test code = 4279532690) eGFR Calculation mL/min/1.73m2 () (test code = 3557895674) ANDREW (test code = ANDREW) Association of [...] tests). Lab Interpretation Abnormal (test code = 65467-3) [facility] CenterLIP[facility]2021-02-19 04:02:00 Test Item Value Reference Range Interpretation Comments LIPASE (test code = 8238582707) 54 U/L 0-220 Lab Interpretation (test code = Normal 80242-9) [facility] WITH [id number] 03:55:00 Test Item Value Reference Range Interpretation Comments WBC (test code = See_Comment [Automated message] 6690-2) The system [employer] generated this result transmitted ref erence range: 4.30 - 1 1.10 10*3/?L. The re ference range was not u sed to interpret this result as normal/abnor mal. RBC (test code = See_Comment [Automated message] 789-8) The system [employer] generated this result transmitted ref erence range: [...] RDW-SD (test code 47.6 fL 39-49.9 = 01296-4) RDW-CV (test code 14.6 % 12-15.5 = 788-0) PLT (test code = See_Comment [Automated message] 777-3) The system [employer] generated this result transmitted ref erence range: 166 - 35 8 10*3/?L. The re ference range was not u sed to interpret this result as normal/abnor mal. MPV (test code = 11.0 fL 9.5-12.9 23060-9) NRBC/100 WBC (test See_Comment [Automat ed message] code = 0151264622) The syste m which generated this result transmitted ref erence range: 0.0 - 10 .0 /100 WBCs. The refer ence range was not u sed to interpret this result as normal/abnor mal. NRBC x10^3 (test <0.01 See_Comment [Automated message] code = 5831978517) The syste m which generated this result transmitted ref erence range: 10*3/?L. The reference range was not used to interpr et this result as normal/abnormal . GRAN MAT (NEUT) % 70.6 % (test code = 770-8) IMM GRAN % (test 0.40 % code = 9592287786) LYMPH % (test code 18.6 % = 736-9) MONO % (test code 8.8 % = 5905-5) EOS % (test code = 1.0 % 713-8) BASO % (test code 0.6 % = 706-2) GRAN MAT 5.89 10*3/uL 1.88-7.09 x10^3(ANC) (test code = 6032932849) IMM GRAN x10^3 0.03 10*3/uL 0-0.06 (test code = 9212133273) LYMPH x10^3 (test 1.55 10*3/uL 1.32-3.29 code = 731-0) MONO x10^3 (test 0.73 10*3/uL 0.33-0.92 code = 742-7) EOS x10^3 (test 0.08 10*3/uL 0.03-0.39 code = 711-2) BASO x10^3 (test 0.05 10*3/uL 0.01-0.07 code = 704-7) [facility] CenterTROP[facility] [id number] 10:48:00 Test Item Value Reference Range Interpretation Comments TROPONIN I (test 0.039 ng/mL See_Comment H [Automated code = 6127704347) message] The system which generated this result [...] ? Lab Interpretation Abnormal (test code = 97123-4) [facility]2021-[facility]-18 08:57:00 Test Item Value Reference Range Interpretation Comments LIPASE (test code = 7327045431) 46 U/L 0-220 Lab Interpretation (test code = Normal 87370-7) [facility] CenterURIN[facility]IS2021-02-18 08:44:00 Test Item Value Reference Range Interpretation Comments APPEARANCE (test code = Clear Clear 9929627402) COLOR (test code = Yellow Yellow 0496556636) PH (test code = 4.8-8.0 1472636774) SP GRAVITY (test code = 1.003-1.030 6845088033) GLU U QUAL (test code = 50 mg/dL Normal A 9907745283) BLOOD (test code = Negative Negative 5901182164) KETONES (test code = Negative Negative 6846229413) PROTEIN (test code = 500 mg/dL Negative A 2887-8) UROBILIN (test code = Normal Normal 3510096191) BILIRUBIN (test code = Negative Negative 9438373259) NITRITE (test code = Negative Negative 6207505903) LEUK ARVIN (test code = Negative Negative 6048674638) RBC/HPF (test code = See_Comment [Autom ated message] 7455910816) The system [employer] generated this result transmit erika reference range : 0 - 3 HPF. The refe rence range was not u sed to interpret th is result as normal/abnormal . WBC/HPF (test code = See_Comment [Autom ated message] 9334771602) The system [employer] generated this result transmit erika reference range : 0 - 5 HPF. The refe rence range was not u sed to interpret th is result as normal/abnormal . BACTERIA (test code = Few Negative A 9957470585) SQ EPITH (test code = HPF 4980871526) HYAL CAST (test code = See_Comment H [Aut omated message] 8442016659) The system [employer] generated this result transmit erika reference range : <=2 LPF. The refere nce range was not u sed to interpret th is result as normal/abnormal . TRANS EPI (test code = <1 See_Comment [Aut omated message] 8876059972) The system [employer] generated this result transmit erika reference range : <=1 HPF. The refere nce range was not u sed to interpret th is result as normal/abnormal . Lab Interpretation (test Abnormal code = 24099-3) [facility] CenterTROP[facility] [id number] 08:13:00 Test Item Value Reference Range Interpretation Comments TROPONIN I (test 0.036 ng/mL See_Comment H [Automated code = 5040420567) message] The system which generated this result [...] ? Lab Interpretation Abnormal (test code = 79341-0) [facility]. METABOLIC PANEL (11632)2020-10-07 08:02:00 Test Item Value Reference Range Interpretation Comments NA (test code = 136 mmol/L 135-145 6569188659) K (test code = 4.4 mmol/L 3.5-5 8526664133) CL (test code = 100 mmol/L 98-108 0000213217) CO2 TOTAL (test code = 32 mmol/L 23-31 H 1017419161) AGAP (test code = 2-16 5418268407) BUN (test code = 35 mg/dL 7-23 H 4100020977) GLUCOSE (test code = 138 mg/dL 70-110 H 5571023417) CREATININE (test code = 1.25 mg/dL 0.5-1.04 H 9573088418) TOTAL BILI (test code = 0.5 mg/dL 0.1-1.2 3499389039) CALCIUM (test code = 9.1 mg/dL 8.6-10.6 1318207285) T PROTEIN (test code = 6.8 g/dL 6.3-8.2 8536500334) ALBUMIN (test code = 3.5 g/dL 3.5-5 9206954446) ALK PHOS (test code = 74 U/L 34-122 6836002525) ALTv (test code = 16 U/L 5-35 1742-6) AST(SGOT) (test code = 26 U/L 13-40 0941960848) eGFR Calculation mL/min/1.73m2 (Non-) (test code = 3522562135) eGFR Calculation mL/min/1.73m2 () (test code = 7990845913) ANDREW (test code = ANDREW) Association of [...] tests). Lab Interpretation Abnormal (test code = 61245-2) [facility] WITH [id number] 07:45:00 Test Item Value Reference Range Interpretation Comments WBC (test code = See_Comment [Automated message] 6690-2) The system [employer] generated this result transmitted ref erence range: 4.30 - 1 1.10 10*3/?L. The re ference range was not u sed to interpret this result as normal/abnor mal. RBC (test code = See_Comment [Automated message] 729-8) The system [employer] generated this result transmitted ref erence range: [...] RDW-SD (test code 47.0 fL 39-49.9 = 70834-5) RDW-CV (test code 14.6 % 12-15.5 = 788-0) PLT (test code = See_Comment [Automated message] 757-3) The system [employer] generated this result transmitted ref erence range: 166 - 35 8 10*3/?L. The re ference range was not u sed to interpret this result as normal/abnor mal. MPV (test code = 11.7 fL 9.5-12.9 49659-8) NRBC/100 WBC (test See_Comment [Automat ed message] code = 9474157315) The syste m which generated this result transmitted ref erence range: 0.0 - 10 .0 /100 WBCs. The refer ence range was not u sed to interpret this result as normal/abnor mal. NRBC x10^3 (test <0.01 See_Comment [Automated message] code = 7382235529) The syste m which generated this result transmitted ref erence range: 10*3/?L. The reference range was not used to interpr et this result as normal/abnormal . GRAN MAT (NEUT) % 76.3 % (test code = 770-8) IMM GRAN % (test 0.30 % code = 6191451790) LYMPH % (test code 15.4 % = 736-9) MONO % (test code 7.0 % = 5905-5) EOS % (test code = 0.6 % 713-8) BASO % (test code 0.4 % = 706-2) GRAN MAT 7.06 10*3/uL 1.88-7.09 x10^3(ANC) (test code = 6652227469) IMM GRAN x10^3 0.03 10*3/uL 0-0.06 (test code = 5364492851) LYMPH x10^3 (test 1.43 10*3/uL 1.32-3.29 code = 731-0) MONO x10^3 (test 0.65 10*3/uL 0.33-0.92 code = 742-7) EOS x10^3 (test 0.06 10*3/uL 0.03-0.39 code = 711-2) BASO x10^3 (test 0.04 10*3/uL 0.01-0.07 code = 704-7) [facility] GLUCOSE (AUTOMATED)2020-09-30 13:41:00 Test Item Value Reference Range Interpretation Comments POCT GLU (test code = 3415914826) 101 mg/dL 70-110 Lab Interpretation (test code = Normal 24931-2) [facility] [id number] 13:36:00 Test Item Value Reference Range Interpretation Comments POCT Glu (age>30days) (test code = 101 mg/dL 70-110 3342) [facility]2020-09-29 16:13:00 Test Item Value Reference Range Interpretation Comments SARS-CoV-2 Rapid ID NOW Not Detected Not Detected (test code = 38364-2) ANDREW (test code = ANDREW) ID NOW COVID-19 Assay is an isothermal nucleic acid amplification test intended for the qualitative detection of nucleic acid from SARS-CoV-2 viral RNA in nasopharyngeal (FRONT END DEVELOPER DESIGNER) specimens. It is used under Emergency Use [...] indicated. Lab Interpretation Normal (test code = 87626-4) [facility]
[2023-06-14] MEDS ORDERED: PROPRANOLOL HCL 40 MG TAB ONE (11:20)
[2023-06-14] MEDS ORDERED: KETOROLAC 30 MG/ML INJ ONE (11:25)
--- NOTE | 2023-06-14 11:51 | RAD REPORT ---
EXAM DESCRIPTION: US - Extremity Venous Uni Ltd - 06/14/2023 11:30 am CLINICAL HISTORY: PAIN Leg swelling and edema. COMPARISON: Extrem Venous W Compress Harris dated 03/30/2023 FINDINGS: Left lower extremity venous system was interrogated with Doppler technique. Normal flow, c ompressibility and augmentation was noted. There is no DVT present. IMPRESSION: No evidence of left lower extremity deep venous thrombosis.
--- NOTE | 2023-06-14 11:58 | RAD REPORT ---
EXAM DESCRIPTION: CT - Stone Protocol - 06/14/2023 11:41 am CLINICAL HISTORY: Flank pain. NUMBNESS/TINGLING COMPARISON: Stone Protocol dated 02/22/2023; Renal Ultrasound-Complete dated 03/30/2023 TECHNIQUE: Axial images were obtained without oral or IV contrast. Lack of contrast limits solid org an and vascular assessment. The [id number] spans the entirety of the system partially obscuring uppermost abdomen and lung bases. Coronal reformatted images were obtained and reviewed. All CT scans are performed using dose optimization technique as appropriate and may include automated exposure control or mA/KV adjustment according to patient size. FINDINGS: The lower lung garcia are clear. Cholecystectomy clips. Imaged portions of the liver and spleen show no suspicious findings on non-contrast imaging. The panc reas and adrenal glands are normal. No pathologic lymphadenopathy in the abdomen or pelvis. No urinary tract stones or obstructive uropathy. Multiple rounded renal lesions bilaterally likely cy sts. Several of these are likely hyperdense cysts. No bowel obstruction, free air, free fluid or abscess. Normal appendix noted.Prominent retained stool seen throughout the colon. Multilevel degenerative change throughout the lumbar spine greatest at L5-S1. Mild dextroscoliosis is present. IMPRESSION: No urinary tract stones or obstructive uropathy. Multiple rounded renal lesion bilaterally seen favored to represent cysts. No hydronephrosis. Moderate stool retained throughout the colon. Moderate lumbar degenerative changes.
--- NOTE | 2023-06-14 12:28 | ER ---
Nurse's Notes [facility] Name: Caprice Mojica Age: 62 yrs Sex: Female : 1960 Arrival Date: 06/14/2023 Time: 09:19 Bed 7 Private MD: Diagnosis: Low back pain, left-sided radiculopathy Presentation: 06/14 10:09 Chief complaint: Patient states: Left leg pain, radiates to back and left groin x 3 jl7 days, reports nausea since this morning. Coronavirus screen: At this time, the client does not indicate any symptoms associated with coronavirus-19. Ebola Screen: No symptoms or risks identified at this time. Initial Sepsis Screen: Does the patient meet any 2 criteria? No. Patient's initial sepsis screen is negative. Does the patient have a suspected source of infection? No. Patient's initial sepsis screen is negative. Risk Assessment: Do you want to hurt yourself or someone else? Patient reports no desire to harm self or others. Onset of symptoms was June 11, 2023. 10:09 Acuity: HERLINDA 3 jl7 10:09 Method Of Arrival: Wheelchair jl7 Historical: - Allergies: 10:13 PENICILLINS; jl7 - PMHx: 10:13 Congestive heart failure; Diabetes - IDDM; Hyperlipidemia; Hypertension; stage 4 kidney jl7 failure; - PSHx: 10:13 section; hysterectomy; Thyroid surgery; jl7 - Immunization history:: Adult Immunizations unknown. - Social history:: Smoking status: Patient denies any tobacco usage or history of. Screenin:48 [facility] ED Fall Risk Assessment (Adult) History of falling in the last 3 months, kc6 including since admission No falls in past 3 months (0 pts) Confusion or Disorientation No (0 pts) Intoxicated or Sedated No (0 pts) Impaired Gait No (0 pts) Mobility Assist Device Used No (0 pt) Altered Elimination No (0 pt) Score/Fall Risk Level 0 - 2 = Low Risk. Abuse screen: Denies threats or abuse. Denies injuries from another. Nutritional screening: No deficits noted. Tuberculosis screening: No symptoms or risk factors identified. Assessment: 11:14 General: Appears in no apparent distress. comfortable, obese, well groomed, Behavior is kc6 calm, cooperative, appropriate for age. Pain: Complains of pain in back and left leg Pain currently is 8 out of 10 on a pain scale. Neuro: Level of Consciousness is awake, alert, obeys commands, Oriented to person, place, time, situation, Appropriate for age. Cardiovascular: Capillary refill < 3 seconds. Respiratory: Airway is patent Trachea midline Respiratory effort is even, unlabored, Respiratory pattern is regular, symmetrical. GI: Abdomen is round non-distended, obese, Bowel sounds present X 4 quads. Abd is soft X 4 quads Reports nausea, Patient currently denies diarrhea, vomiting. : No signs and/or symptoms were reported regarding the genitourinary system. EENT: No signs and/or symptoms were reported regarding the EENT system. Derm: No signs and/or symptoms reported regarding the dermatologic system. Skin is intact, is healthy with good turgor, Skin is pink, warm \T\ dry. Musculoskeletal: No signs and/or symptoms reported regarding the musculoskeletal system. Circulation, motion, and sensation intact. Capillary refill < 3 seconds, Range of motion: intact in all extremities. 12:14 Reassessment: Patient appears in no apparent distress at this time. No changes from kc6 previously documented assessment. Patient and/or family updated on plan of care and expected duration. Pain level reassessed. Patient is alert, oriented x 3, equal unlabored respirations, skin warm/dry/pink. Vital Signs: 10:09 BP 132 / 80; Pulse 57; Resp 17; Temp 98.2; Pulse Ox 97% ; Pain 8/10; jl7 10:09 Pain Scale: Adult jl7 ED Course: 09:20 Patient arrived in ED. rg4 09:25 Beverly Mensah MD is Attending Physician. sp3 10:13 Triage completed. jl7 10:13 Arm band placed on right wrist. jl7 10:43 Patient placed in an exam room, on a stretcher. ph 10:46 Shavon Mccabe RN is Primary Nurse. kc6 10:48 Patient has correct armband on for positive identification. Bed in low position. Call [facility] light in reach. Side rails up X 1. Adult w/ patient. Client placed on continuous cardiac and pulse oximetry monitoring. NIBP monitoring applied. 11:32 US Extremity Venous Unilateral Ltd In Process Unspecified. EDMS 11:42 Stone Protocol In Process Unspecified. EDMS 13:25 No provider procedures requiring assistance completed. Patient did not have IV access kc6 during this emergency room visit. Administered Medications: 11:14 Drug: Ketorolac IM 15 mg IM once Route: IM; Site: right deltoid; kc6 12:50 Follow up: Response: No adverse reaction; Pain is decreased kc6 Medication: 13:25 VIS not applicable for this client. kc6 Outcome: 12:27 Discharge ordered by MD. jeffery 13:25 Discharged to home ambulatory, kc6 13:25 Condition: stable 13:25 Discharge instructions given to patient, Instructed on discharge instructions, follow up and referral plans. Demonstrated understanding of instructions, follow-up care, 13:25 Patient left the ED. kc6 Signatures: Dispatcher [employer] EDTessie Cadena RN RN Vidhi Venegas rg4 Eduardo Islas RN RN jl7 Beverly Mensah MD MD sp3 Shavon Mccabe RN RN kc6 Corrections: (The following items were deleted from the chart) 10:14 10:09 Method Of Arrival: Ambulatory kimmy oneal
--- NOTE | 2023-06-14 12:28 | EDPHYS ---
Physician Documentation [facility] Name: Caprice Mojica Age: 62 yrs Sex: Female : 1960 Arrival Date: 06/14/2023 Time: 09:19 Bed 7 Private MD: ED Physician Beverly Mensah HPI: 06/14 11:09 This 62 yrs old Black Female presents to ER via Wheelchair with complaints of Back sp3 Pain, Leg Pain. 11:09 62-year-old female with history of CHF, diabetes, hyperlipidemia, stage IV kidney sp3 failure now presents to the ED with chief complaint low back pain and left leg pain radiating posteriorly as well as in her left thigh. Patient is in a wheelchair and does have some immobilization. She denies any loss of bowel or bladder control, subjective weakness, or any other signs or symptoms on that side. On review of systems, she denies headache, fever, URI symptoms, chest pain, shortness of breath, abdominal pain, vomiting, diarrhea, trauma, or any other signs or symptoms at this time. Symptoms of been going on for 3 to 4 days and today she discussed with her doctor who suggested she come in for evaluation of the left lower extremity.. Historical: - Allergies: 10:13 PENICILLINS; jl7 - PMHx: 10:13 Congestive heart failure; Diabetes - IDDM; Hyperlipidemia; Hypertension; stage 4 kidney jl7 failure; - PSHx: 10:13 section; hysterectomy; Thyroid surgery; jl7 - Immunization history:: Adult Immunizations unknown. - Social history:: Smoking status: Patient denies any tobacco usage or history of. ROS: 11:10 Constitutional: Negative for fever, chills, and weight loss, Eyes: Negative for injury, sp3 pain, redness, and discharge, ENT: Negative for injury, pain, and discharge, Neck: Negative for injury, pain, and swelling, Cardiovascular: Negative for chest pain, palpitations, and edema, Respiratory: Negative for shortness of breath, cough, wheezing, and pleuritic chest pain, Abdomen/GI: Negative for abdominal pain, nausea, vomiting, diarrhea, and constipation, Back: Negative for injury and pain, Skin: Negative for injury, rash, and discoloration, Neuro: Negative for headache, weakness, numbness, tingling, and seizure, Psych: Negative for depression, anxiety, suicide ideation, homicidal ideation, and hallucinations, Allergy/Immunology: Negative for hives, rash, and allergies, Endocrine: Negative for neck swelling, polydipsia, polyuria, polyphagia, and marked weight changes, 11:10 All other systems are negative, Exam: 11:10 Constitutional: This is a well developed, well nourished patient who is awake, alert, sp3 and in no acute distress. Head/Face: Normocephalic, atraumatic. Eyes: Pupils equal round and reactive to light, extra-ocular motions intact. Lids and lashes normal. Conjunctiva and sclera are non-icteric and not injected. Cornea within normal limits. Periorbital areas with no swelling, redness, or edema. ENT: Nares patent. No nasal discharge, no septal abnormalities noted. External auditory canals are clear. Oropharynx with no redness, swelling, or masses, exudates, or evidence of obstruction, uvula midline. Mucous membranes moist. Neck: Trachea midline, no thyromegaly or masses palpated, and no cervical lymphadenopathy. Supple, full range of motion without nuchal rigidity, or vertebral point tenderness. No Meningismus. Chest/axilla: Normal chest wall appearance and motion. Nontender with no deformity. No lesions are appreciated. Cardiovascular: Regular rate and rhythm with a normal S1 and S2. No gallops, murmurs, or rubs. Normal PMI, no JVD. No pulse deficits. Respiratory: Lungs have equal breath sounds bilaterally, clear to auscultation and percussion. No rales, rhonchi or wheezes noted. No increased work of breathing, no retractions or nasal flaring. Abdomen/GI: Soft, non-tender, with normal bowel sounds. No distension or tympany. No guarding or rebound. No evidence of tenderness throughout. Back: No spinal tenderness. No costovertebral tenderness. Full range of motion. Skin: Warm, dry with normal turgor. Normal color with no rashes, no lesions, and no evidence of cellulitis. Neuro: Awake and alert, GCS 15, oriented to person, place, time, and situation. Cranial nerves II-XII grossly intact. Motor strength 5/5 in all extremities. Sensory grossly intact. Cerebellar exam normal. Normal gait. Psych: Awake, alert, with orientation to person, place and time. Behavior, mood, and affect are within normal limits. 11:10 Musculoskeletal/extremity: Exam limited secondary to obesity. However neurovascular exam distal left lower extremity is normal. There is mild pain on straight leg raise. No significant swelling compared to the right side.. Vital Signs: 10:09 BP 132 / 80; Pulse 57; Resp 17; Temp 98.2; Pulse Ox 97% ; Pain 8/10; jl7 10:09 Pain Scale: Adult jl7 MDM: 10:19 Patient medically screened. sp3 11:11 Data reviewed: vital signs, nurses notes, radiologic studies. ED course: This is likely sp3 acute on chronic arthritic type symptoms for this patient. Also consider DVT or worsening arthritis/disc disease. MRI not available in the ED currently so we will assess with CT scan of the lumbar spine and ultrasound left lower extremity assessing for due to structures and DVT. We will administer 50 mg of ketorolac IM. Will avoid narcotics secondary to patient's existing drowsiness secondary to taking gabapentin prior to arrival. Patient is in no acute distress and I am not highly suspicious for PE, TAD, AAA, sepsis, shock or any other critical pathology at this time. Abdomen is also benign and nonsurgical. If work-up is negative, we will safely discharge patient home to PCP follow-up for outpatient MRI.. 12:26 ED course: Patient's ultrasound demonstrates no DVT. CT demonstrates no significant sp3 pathology and lumbar degenerative changes. We will safely discharge patient home at this time with outpatient MRI and follow-up to PCP. Patient's pain is improved.. 06/14 11:08 Order name: US Extremity Venous Unilateral Ltd; Complete Time: 12: sp3 06/14 11:18 Order name: Stone Protocol; Complete Time: 12:26 EDMS Administered Medications: 11:14 Drug: Ketorolac IM 15 mg IM once Route: IM; Site: right deltoid; kc6 12:50 Follow up: Response: No adverse reaction; Pain is decreased kc6 Disposition Summary: 06/14/23 12:27 Discharge Ordered Notes: Location: Home sp3 Condition: Stable sp3 Diagnosis - Low back pain, left-sided radiculopathy sp3 Discharge Instructions: - Discharge Summary Sheet sp3 - Lumbosacral Radiculopathy sp3 Forms: - Medication Reconciliation Form sp3 - Thank You Letter sp3 - Antibiotic Education sp3 - Prescription Opioid Use sp3 - Patient Portal Instructions sp3 - Leadership Thank You Letter sp3 Signatures: Dispatcher [employer] EDEduardo Morales, RN RN jl7 Beverly Mensah MD MD sp3 Shavon Mccabe RN RN kc6 Corrections: (The following items were deleted from the chart) 11:18 11:09 Spine Lumbar Wo Con+CT.RAD.BRZ ordered. EDMS EDMS
[2023-06-14 16:35] VITALS: BP 132/80; TEMP 98.2; O2SAT 97
== END 2023-06-14 13:25 | disposition home or self-care (01) ==
LOC: ER 09:19
DX: M54.50 Low back pain, unspecified (principal); M54.16 Radiculopathy, lumbar region; I50.9 Heart failure, unspecified; E11.9 Type 2 diabetes mellitus without complications; E78.5 Hyperlipidemia, unspecified; I10 Essential (primary) hypertension; N18.4 Chronic kidney disease, stage 4 (severe); Z88.0 Allergy status to penicillin
CPT/HCPCS: 74176; 76377; 93971; 96372; 99284

== ENCOUNTER → 2023-10-03 | Emergency (ER) | payer OTHER ==
[~2023-10-03] MED LIST: ATROPINE SULF 1 MG/10 ML SYR IV ONE; DOPAMINE/D5W 400 MG/250 ML BAG IV ONE
[2023-10-03 17:15] LABS: Absolute Lymphocytes (CBC) 1.9 K/uL (0.7-4.9); Hematocrit 32.1 % (36.0-45.0); Lymphocytes % 17.8 % (15.3-44.8); MCV 90.9 fL (80-100); MPV 9.4 fL (7.6-11.3); Platelets 178 thou/uL (152-406); RBC Red Blood Cell Count 3.53 M/uL (3.86-4.86)
--- NOTE | 2023-10-03 17:21 | RAD REPORT ---
EXAM DESCRIPTION: RAD - Chest Single View - 10/03/2023 5:12 pm CLINICAL HISTORY: CHEST PAIN Chest pain. COMPARISON: <Comparisons> FINDINGS: Portable technique limits examination quality. Mild pulmonary edema suspected. The heart is mildly prominent. No displaced fractures. IMPRESSION: Mild CHF.
[2023-10-03 17:46] LABS: ALT/SGPT 62 U/L (13-56); AST/SGOT 47 U/L (15-37); Alkaline Phosphatase 84 U/L (45-117); BUN Blood Urea Nitrogen 125 mg/dL (7-18); Bicarbonate 30 mEq/L (21-32); Glomerular Filtration Rate 8 ml/min (=/>90); Glucose Level 107 mg/dL (74-106); Potassium 4.6 mEq/L (3.5-5.1); Sodium Level 134 mEq/L (136-145)
[2023-10-03 17:47] LABS: Bilirubin Total 0.2 mg/dL (0.2-1.0); Magnesium 2.8 mg/dL (1.6-2.4); Protein, Total 7.9 g/dL (6.4-8.2); Troponin High Sensitivity 48.8 pg/mL (<58.9)
[2023-10-03 17:49] LABS: Bilirubin Direct < 0.1 mg/dL (0-0.2); Bilirubin Indirect, Calculated ND mg/dL (0.2-0.8)
[2023-10-03 17:53] LABS: Protime INR 1.01
--- NOTE | 2023-10-03 19:11 | ER ---
Nurse's Notes [facility] Name: Caprice Mojica Age: 63 yrs Sex: Female : 1960 Arrival Date: 10/03/2023 Time: 16:47 Bed 2 Private MD: Irvin Lowery Diagnosis: Other specified heart block-third degree;Bradycardia, unspecified;Chronic kidney disease, unspecified-acute on chronic Presentation: 10/03 16:53 Chief complaint: Patient states: Chest pain since 0300, constant pressure. Dizziness ld1 began 1 hour ago. Coronavirus screen: At this time, the client does not indicate any symptoms associated with coronavirus-19. Ebola Screen: No symptoms or risks identified at this time. Initial Sepsis Screen: Does the patient meet any 2 criteria? No. Patient's initial sepsis screen is negative. Does the patient have a suspected source of infection? No. Patient's initial sepsis screen is negative. Risk Assessment: Do you want to hurt yourself or someone else? Patient reports no desire to harm self or others. Onset of symptoms was October 03, 2023. 16:53 Method Of Arrival: Wheelchair ld1 16:53 Acuity: HERLINDA 3 ld1 17:16 Acuity: HERLINDA 2 mb9 Triage Assessment: 16:54 General: Appears in no apparent distress. uncomfortable, Behavior is calm, cooperative, ld1 appropriate for age. Pain: Complains of pain in chest Pain does not radiate. Pain currently is 7 out of 10 on a pain scale. Quality of pain is described as pressure, throbbing, Pain began suddenly. Pain: Is continuous. EENT: No signs and/or symptoms were reported regarding the EENT system. Neuro: Level of Consciousness is awake, alert, obeys commands, Oriented to person, place, time, situation. Cardiovascular: Capillary refill < 3 seconds Patient's skin is warm and dry. Rhythm is sinus rhythm. Cardiovascular: Reports chest pain. Respiratory: Airway is patent Respiratory effort is even, unlabored. GI: Abdomen is round obese. : No signs and/or symptoms were reported regarding the genitourinary system. Derm: No signs and/or symptoms reported regarding the dermatologic system. Historical: - Allergies: 16:54 PENICILLINS; ld1 - PMHx: 16:54 Hyperlipidemia; stage 4 kidney failure; Hypertension; Diabetes - IDDM; Congestive heart ld1 failure; - PSHx: 16:54 section; hysterectomy; Thyroid surgery; ld1 - Immunization history:: Adult Immunizations up to date. - Social history:: Smoking status: Patient denies any tobacco usage or history of. Patient/guardian denies using alcohol. Screenin:17 [facility] ED Fall Risk Assessment (Adult) History of falling in the last 3 months, mb9 including since admission No falls in past 3 months (0 pts) Confusion or Disorientation No (0 pts) Intoxicated or Sedated No (0 pts) Impaired Gait No (0 pts) Mobility Assist Device Used No (0 pt) Altered Elimination No (0 pt) Score/Fall Risk Level 0 - 2 = Low Risk Oriented to surroundings, Maintained a safe environment, Educated pt \T\ family on fall prevention, incl call for assistance when getting out of bed. Abuse screen: Denies threats or abuse. Nutritional screening: No deficits noted. Tuberculosis screening: No symptoms or risk factors identified. Assessment: 17:17 Reassessment: ERP notified of pts HR of 33. EKG completed. mb9 17:18 General: Appears uncomfortable, ill, Behavior is cooperative. General: Behavior is. mb9 Pain: Complains of pain in chest Pain does not radiate. Pain currently is 8 out of 10 on a pain scale. Quality of pain is described as throbbing, Pain began gradually, Is continuous. Neuro: Rawls Agitation-Sedation Scale (RASS): 0 - Alert and Calm Level of Consciousness is awake, alert, obeys commands, Oriented to person, place, time, situation, Appropriate for age. Neuro: Reports dizziness. Cardiovascular: Patient's skin is warm and dry. Respiratory: Reports shortness of breath Airway is patent Respiratory effort is even, unlabored, Respiratory pattern is regular, symmetrical, Breath sounds are clear bilaterally. GI: Abdomen is round non-distended, Bowel sounds present X 4 quads. : No signs and/or symptoms were reported regarding the genitourinary system. EENT: No signs and/or symptoms were reported regarding the EENT system. Derm: Skin is pink, warm \T\ dry. Musculoskeletal: Range of motion: intact in all extremities. 17:45 Reassessment: No changes from previously documented assessment. Patient and/or family mb9 updated on plan of care and expected duration. Pain level reassessed. Patient is alert, oriented x 3, equal unlabored respirations, skin warm/dry/pink. 18:17 Reassessment: No changes from previously documented assessment. Patient and/or family mb9 updated on plan of care and expected duration. Pain level reassessed. Patient is alert, oriented x 3, equal unlabored respirations, skin warm/dry/pink. 18:59 Reassessment: No changes from previously documented assessment. Patient and/or family mb9 updated on plan of care and expected duration. Pain level reassessed. Patient is alert, oriented x 3, equal unlabored respirations, skin warm/dry/pink. 18:59 Reassessment: VO from ERP to maintain current rate of Dopamine at 2 mcg/kg/min. mb9 20:00 Reassessment: No changes from previously documented assessment. Patient and/or family mb9 updated on plan of care and expected duration. Pain level reassessed. Patient is alert, oriented x 3, equal unlabored respirations, skin warm/dry/pink. 20:20 Reassessment: Report given to [facility]. mb9 Vital Signs: 16:53 Pulse 76; Resp 18; Temp 97.6(TE); Pulse Ox 96% on R/A; Weight 113.4 kg; Height 5 ft. 2 ld1 in. ; Pain 7/10; 17:16 BP 147 / 58; Pulse 33; Resp 18; Pulse Ox 100% on R/A; mb9 17:30 Pulse 35; Resp 18; Pulse Ox 100% on R/A; mb9 17:55 BP 132 / 64; Pulse 34; Resp 16; Pulse Ox 97% on R/A; mb9 18:17 BP 118 / 59; Pulse 35; Resp 16; mb9 18:40 BP 120 / 58; Pulse 34; Resp 18; Pulse Ox 95% on R/A; mb9 19:00 BP 124 / 64; Pulse 33; Resp 16; Pulse Ox 98% on R/A; mb9 19:15 BP 122 / 54; Pulse 34; Resp 16; Pulse Ox 98% on R/A; mb9 19:45 BP 115 / 62; Pulse 34; Resp 17; Pulse Ox 95% on R/A; as9 16:53 Body Mass Index 45.73 (113.40 kg, 157.48 cm) ld1 16:53 Pain Scale: Adult ld1 ED Course: 16:49 Patient arrived in ED. mr 16:50 Irvin Lowery DO is Private Physician. mr 16:50 Rebeca Haro FNP-C is [facility]. kb 16:50 Uli Hirsch MD is Attending Physician. kb 16:54 Triage completed. ld1 16:54 Arm band placed on right wrist. ld1 17:00 Placed in gown. Bed in low position. Call light in reach. Side rails up X 1. Client mb9 placed on continuous cardiac and pulse oximetry monitoring. NIBP monitoring applied. lunchroom monitor on. 17:08 Tammy Dooley, ELBERT is Primary Nurse. mb9 17:14 Chest Single View XRAY In Process Unspecified. EDMS 17:19 No provider procedures requiring assistance completed. EKG done, by ED staff, reviewed mb9 by Rebeca WALKER. Inserted saline lock: 20 gauge in right antecubital area, using aseptic technique. 17:19 Basic Metabolic Panel Sent. mb9 17:19 Hepatic Function Sent. mb9 17:19 Magnesium Sent. mb9 17:19 Troponin High Sensitivity Sent. mb9 17:19 Ptt, Activated Sent. mb9 17:19 Protime (+inr) Sent. mb9 19:23 Patient transferred, IV remains in place. mb9 Administered Medications: 17:28 Drug: Atropine IVP 0.5 mg IVP once Route: IVP; Site: right antecubital; mb9 19:23 Follow up: Response: No adverse reaction mb9 18:10 Drug: DOPamine 2 mcg/kg/min IV at calculated rate continuous Route: IV; Rate: mb9 calculated rate; Site: left upper arm; 19:23 Follow up: Response: No adverse reaction; IV Status: Infusion continued upon transfer mb9 Medication: 17:18 VIS not applicable for this client. mb9 Outcome: 19:11 ER care complete, transfer ordered by . kb 19:34 Transferred Transfer form completed. mb9 19:34 Transferred by ground EMS 19:34 Condition: stable 19:34 Instructed on the need for transfer, 20:22 Patient left the ED. mb9 Signatures: Dispatcher [employer] EDMS Rebeca Haro FNP-C FNP-Tammy Ambrocio, Reg Reg Shania Mcduffie RN RN ld1 Tammy Dooley RN RN mb9 Garth Lew RN RN as9 Corrections: (The following items were deleted from the chart) 17:19 17:18 Respiratory: Airway is patent Respiratory effort is even, unlabored, Respiratory mb9 pattern is regular, symmetrical, Breath sounds are clear bilaterally. mb9 17:58 17:47 Pulse 35bpm; Resp 18bpm; Pulse Ox 100% RA; mb9 mb9
--- NOTE | 2023-10-03 19:11 | EDPHYS ---
Physician Documentation [facility] Name: Caprice Mojica Age: 63 yrs Sex: Female : 1960 Arrival Date: 10/03/2023 Time: 16:47 Bed 2 Private MD: Irvin Lowery ED Physician Uli Hirsch HPI: 10/03 18:42 This 63 yrs old Black Female presents to ER via Wheelchair with complaints of Chest kb Pressure, Dizziness, Leg weakness. 18:42 Patient is a 63-year-old female with a history of diabetes, CHF, hypertension and CKD kb who presents for chest pain and shortness of breath that woke her up at 0300. states the pain has been constant but she thought it would go away. Came in now because she developed dizziness and near syncope when walking.. Historical: - Allergies: 16:54 PENICILLINS; ld1 - PMHx: 16:54 Hyperlipidemia; stage 4 kidney failure; Hypertension; Diabetes - IDDM; Congestive heart ld1 failure; - PSHx: 16:54 section; hysterectomy; Thyroid surgery; ld1 - Immunization history:: Adult Immunizations up to date. - Social history:: Smoking status: Patient denies any tobacco usage or history of. Patient/guardian denies using alcohol. ROS: 18:39 Constitutional: Negative for fever, chills, and weight loss, kb 18:39 Cardiovascular: Positive for chest pain, 18:39 Respiratory: Positive for shortness of breath, 18:39 Neuro: Positive for dizziness, near syncope, 18:39 All other systems are negative, Exam: 18:40 Constitutional: This is a well developed, well nourished patient who is awake, alert, kb and in no acute distress. Head/Face: Normocephalic, atraumatic. ENT: Moist Mucous membranes Respiratory: Respirations even and unlabored. No increased work of breathing. Talking in full sentences Abdomen/GI: Soft, non-tender. No distention Skin: Warm, dry with normal turgor. Normal color. MS/ Extremity: Pulses equal, no cyanosis. Neurovascular intact. Full, normal range of motion. Neuro: Awake and alert, GCS 15, oriented to person, place, time, and situation. Moves all extremities. 18:40 Cardiovascular: Rate: bradycardic, Rhythm: regular, Vital Signs: 16:53 Pulse 76; Resp 18; Temp 97.6(TE); Pulse Ox 96% on R/A; Weight 113.4 kg; Height 5 ft. 2 ld1 in. ; Pain 7/10; 17:16 BP 147 / 58; Pulse 33; Resp 18; Pulse Ox 100% on R/A; mb9 17:30 Pulse 35; Resp 18; Pulse Ox 100% on R/A; mb9 17:55 BP 132 / 64; Pulse 34; Resp 16; Pulse Ox 97% on R/A; mb9 18:17 BP 118 / 59; Pulse 35; Resp 16; mb9 18:40 BP 120 / 58; Pulse 34; Resp 18; Pulse Ox 95% on R/A; mb9 19:00 BP 124 / 64; Pulse 33; Resp 16; Pulse Ox 98% on R/A; mb9 19:15 BP 122 / 54; Pulse 34; Resp 16; Pulse Ox 98% on R/A; mb9 19:45 BP 115 / 62; Pulse 34; Resp 17; Pulse Ox 95% on R/A; as9 16:53 Body Mass Index 45.73 (113.40 kg, 157.48 cm) ld1 16:53 Pain Scale: Adult ld1 MDM: 16:50 Patient medically screened. kb 18:40 Data reviewed: vital signs, nurses notes. kb 18:41 Differential diagnosis: abnormal EKG, acute myocardial infarction, coronary artery kb disease congestive heart failure. Consideration of Admission/Observation Escalation of care including admission/observation considered. pt will be transferred for higher level of care. Management of patient was discussed with the following: Primary Care Provider: Dr Campo recommends transferring the pt for possible pacemaker . Counseling: I had a detailed discussion with the patient and/or guardian regarding the historical points, exam findings, and any diagnostic results supporting the discharge/admit diagnosis, lab results, radiology results, the need to transfer to another facility, for higher level of care. ED course: [facility] system declines transfer. Initiated with LENCHO Francois, awaiting callback. 19:10 Management of patient was discussed with the following: Dr Klein, cardiology at [facility] kenroy Francois accepts pt for transfer to CCU. 10/03 16:58 Order name: Basic Metabolic Panel; Complete Time: 17:57 kb 10/03 16:58 Order name: CBC with Diff; Complete Time: 17:17 kb 10/03 16:58 Order name: Hepatic Function; Complete Time: 17:57 kb 10/03 16:58 Order name: Magnesium; Complete Time: 17:57 kb 10/03 16:58 Order name: Protime (+inr); Complete Time: 17:57 kb 10/03 16:58 Order name: Ptt, Activated; Complete Time: 17:57 kb 10/03 16:58 Order name: Troponin High Sensitivity; Complete Time: 17:57 kb 10/03 16:58 Order name: Urinalysis w/ reflexes kb 10/03 16:58 Order name: Chest Single View XRAY; Complete Time: 17:24 kb 10/03 16:58 Order name: EKG; Complete Time: 16:58 kb 10/03 16:58 Order name: Cardiac monitoring; Complete Time: 16:58 kb 10/03 16:58 Order name: EKG - Nurse/Tech; Complete Time: 17:19 kb 10/03 16:58 Order name: IV Saline Lock; Complete Time: 17:19 kb 10/03 16:58 Order name: Labs collected and sent; Complete Time: 17:19 kb 10/03 16:58 Order name: NPO; Complete Time: 16:58 kb 10/03 16:58 Order name: O2 Per Protocol; Complete Time: 16:58 kb 10/03 16:58 Order name: O2 Sat Monitoring; Complete Time: 16:58 kb 10/03 17:20 Order name: Labs - recollect needed: need blue tube recollect; Complete Time: 17:38 as6 Administered Medications: 17:28 Drug: Atropine IVP 0.5 mg IVP once Route: IVP; Site: right antecubital; mb9 19:23 Follow up: Response: No adverse reaction mb9 18:10 Drug: DOPamine 2 mcg/kg/min IV at calculated rate continuous Route: IV; Rate: mb9 calculated rate; Site: left upper arm; 19:23 Follow up: Response: No adverse reaction; IV Status: Infusion continued upon transfer mb9 Disposition: 19:11 Critical Care:. kb Disposition Summary: 10/03/23 19:11 Transfer Ordered Notes: Transfer Location: Other Acute Care Facility kb Reason: Higher level of care kb Condition: Stable kb Problem: new kb Symptoms: are unchanged kb Accepting Physician: Dr Klein(10/03/23 20:22) mb9 Diagnosis - Other specified heart block - third degree kb - Bradycardia, unspecified kb - Chronic kidney disease, unspecified - acute on chronic kb Forms: - Medication Reconciliation Form kb - SBAR form kb Critical care time excluding procedures: 19:11 Critical care time: Bedside Care: 15 minutes, Consultation: 10 minutes, Family kb Intervention: 10 minutes. Total time: 35 minutes Signatures: Dispatcher [employer] EDRebeca Dumont, ROUTE AIDE-C ROUTE AIDE-Uli Huynh MD MD rn Shania Mcduffie RN RN ld1 Nando Chamberlain RN RN as6 Tammy Dooley RN RN mb9 Corrections: (The following items were deleted from the chart) 20:22 19:11 Dr Klein kb mb9
[2023-10-03 20:40] VITALS: TEMP 97.6
[2023-10-03 21:00] VITALS: BP 115/62; O2SAT 95
== END ==
LOC: ER 16:47
DX: I44.2 Atrioventricular block, complete (principal); R00.1 Bradycardia, unspecified; E11.22 Type 2 diabetes mellitus with diabetic chronic kidney disease; I13.0 Hypertensive heart and chronic kidney disease with heart failure and stage 1 through stage 4 chronic kidney disease, or unspecified chronic kidney disease; N18.4 Chronic kidney disease, stage 4 (severe); I50.9 Heart failure, unspecified; N17.9 Acute kidney failure, unspecified; Z88.0 Allergy status to penicillin
CPT/HCPCS: 85025; 80048; 36415; 83735; 85610; 80076; 85730; 84484; 71045; J0461; J1265

== ENCOUNTER 2025-06-07 08:45 | Observation (INO) | payer OTHER ==
--- NOTE | 2025-06-07 10:03 | RAD REPORT ---
EXAMINATION: ONE VIEW CHEST XR CLINICAL INDICATION: Female, 64 years old.,DYSPNEA TECHNIQUE: Frontal chest projection is submitted. Examination is limited by patient positioning and t echnique. COMPARISON: 10/03/2023 FINDINGS: The lungs are again somewhat suboptimally inflated. Interval improvement of central interstitial prom inence, with persistent prominence of the central vasculature caliber. Left chest wall pacer has been placed. No pneumothorax or sizable effusion. The heart is normal in size. Mediastinal contours are unremarkable. IMPRESSION: Partial improvement of central interstitial prominence since the prior radiograph, suggesting improvi ng edema or congestion.
--- NOTE | 2025-06-07 10:16 | RAD REPORT ---
EXAM: CT CHEST, ABDOMEN AND PELVIS WITHOUT CONTRAST CLINICAL INDICATION: Female, 64 years old. [facility] MAIN Abdominal distention;Dyspnea Bed Name: 18 TECHNIQUE: CT chest, abdomen and pelvis was performed, without IV contrast, as per department protoco l. Axial, sagittal and coronal reconstructions were obtained. One or more of the following dose reduction techniques were used: Automated exposure control, adjustment of the mA and/or kV according to the patient size, and/or iterative reconstruction. Unless otherwise specified, incidental findings do not require dedicated imaging follow-up. COMPARISON: 09/05/2023 MRI abdomen FINDINGS: The lack of intravenous contrast limits the sensitivity of this exam for evaluation of solid visceral organs, vascular structures, and retroperitoneum. Chest: LOWER NECK/CHEST WALL: Visualized thyroid gland and soft tissues are normal. LUNGS AND AIRWAYS: Airways are clear. No evidence of airspace or interstitial process. No nodules. PLEURA: No pleural effusion. No pneumothorax. Hemidiaphragms are normally positioned. MEDIASTINUM AND LYMPH NODES: No mediastinal mass or fluid collection. Normal size mediastinal, hilar, and axillary lymph nodes. THORACIC AORTA: Normal caliber and configuration. PULMONARY ARTERIES: Normal caliber. HEART: Unremarkable. Abdomen/Pelvis LIVER: Normal in size and contour. No focal lesion. GALLBLADDER/BILE DUCTS: Status post cholecystectomy. No biliary ductal dilatation. PANCREAS: No mass, ductal dilation, or harpreet-pancreatic fluid. SPLEEN: Normal size. No focal lesion. ADRENALS: Normal; no mass. KIDNEYS AND URETERS: Normal size. Numerous bilateral renal cortical rounded and ovoid lesions of vari ous density suggesting some cysts with hemorrhagic change. Some of these have increased in size since the prior MRI, for example an anteriorly projecting left interpolar 3.3 cm lesion, previously m easuring 2.3 cm, however they are not well evaluated on this noncontrast exam. No hydronephrosis. GASTROINTESTINAL TRACT: Stomach is non-dilated. Small bowel has normal course and caliber. No colonic wall thickening or pericolonic inflammatory changes. PERITONEUM: No free fluid. LYMPH NODES: No lymphadenopathy. ABDOMINAL AORTA AND OTHER VESSELS: Normal caliber aorta and IVC. URINARY BLADDER: Normal contour. REPRODUCTIVE ORGANS: No pathologic process. MUSCULOSKELETAL: No acute or suspicious osseous abnormality. ADDITIONAL FINDINGS: Diastasis recti. IMPRESSION: Trace right pleural effusion. No other acute abnormalities in the chest, abdomen, or pelvis. Numerous bilateral renal cortical rounded and ovoid lesions of various densities, could represent cys tic lesions, some with hemorrhagic change. Given some interval changes in size of the dominant cystic components particularly on the left, this would benefit from a follow-up renal mass protocol C T or MRI if clinically indicated.
[2025-06-07 10:37] LABS: Absolute Lymphocytes (CBC) 1.6 K/uL (0.7-4.9); Hematocrit 34.4 % (36.0-45.0); Hemoglobin 10.8 g/dL (12.0-15.0); MCH 27.7 pg (27.0-35.0); MCHC 31.5 g/dL (32.0-36.0); MCV 87.7 fL (80-100); MPV 9.3 fL (7.6-11.3); Nucleated RBC Absolute Count 0.0 (0-0); Nucleated Red Blood Cells % 0.1 % (0-0); RBC Red Blood Cell Count 3.92 M/uL (3.86-4.86); White Blood Count 8.90 thou/uL (4.3-10.9)
[2025-06-07 10:42] LABS: Sqamous Epithelial <5 /HPF (None Seen); Urine Culture Reflex Order NOT NEEDED; Urine Microscopic Reflex YN ORDER UMIC; Urine Yeast (Budding) Trace /HPF (None Seen)
[2025-06-07] MEDS ORDERED: ONDANSETRON 4 MG/2 ML VIAL ONE (10:42)
[2025-06-07] MEDS ORDERED: FENTANYL CITR 100 MCG/2 ML ONE (10:43)
[2025-06-07 10:51] LABS: PT Prothrombin Time 12.6 SECONDS (10-13.0); Protime INR 1.12
[2025-06-07 10:59] LABS: ALT/SGPT 38 U/L (13-56); AST/SGOT 22 U/L (15-37); Albumin 2.7 g/dL (3.4-5.0); Albumin/Globulin Ratio 0.6 (1.1-1.8); Alkaline Phosphatase 95 U/L (45-117); Anion Gap 9.0 mEq/L (5.0-15.0); BUN Blood Urea Nitrogen 41 mg/dL (7-18); Globulin 4.5 g/dL (2.3-3.5); Glucose Level 109 mg/dL (74-106); Lipase 41 U/L (13-75); Magnesium 2.0 mg/dL (1.6-2.4); NT PRO-BNP 4314 pg/mL (<125); Potassium 4.0 mEq/L (3.5-5.1)
[2025-06-07 11:02] LABS: Bilirubin Indirect, Calculated 0.1 mg/dL (0.2-0.8)
--- NOTE | 2025-06-07 11:02 | RAD REPORT ---
EXAMINATION: US Extrem Venous W Compress Harris CLINICAL INDICATION: [facility] MAIN Pain;Swelling Bed Name: 18 N TECHNIQUE: Complete bilateral duplex sonography of the BILATERAL lower extremity veins was performed. The examination included compression for vein patency, color Doppler imaging and flow augmentation in response to distal compression of the distal external iliac, common femoral, femoral, popliteal, t ibial, and great and small saphenous veins. COMPARISON: No prior exam. FINDINGS: Duplex sonography testing of the veins of the BILATERAL lower extremity was performed. Color flow luz ging shows all veins to be compressible with [id number] color filling. Pulsatile and phasic flow is present within all lower extremity deep and superficial veins examined. Elongated ill-defined flui d accumulation in the right popliteal fossa, measuring up to 3.4 x 1.2 x 1.9 cm, suggesting a Cox's cyst. IMPRESSION: There is no deep vein or superficial vein thrombosis.
[2025-06-07 11:04] LABS: Troponin High Sensitivity 67.9 pg/mL (<58.9)
--- NOTE | 2025-06-07 11:17 | EDPHYS ---
Physician Documentation [facility] Name: Caprice Preciado Age: 64 yrs Sex: Female : 1960 Arrival Date: 06/07/2025 Time: 08:45 Bed 18 Private MD: ED Physician Darnell Kay HPI: 06/07 10:32 This 64 yrs old Black Female presents to ER via Wheelchair with complaints of Shortness kay Of Breath, Flank Pain, Hip Pain - RT. 10:32 The patient has shortness of breath at rest, with light activity. Onset: The kay symptoms/episode began/occurred 3 day(s) ago. The patient's shortness of breath is aggravated by exertion, light activity. Associated signs and symptoms: Pertinent positives: non-productive cough. Severity of symptoms: At their worst the symptoms were moderate in the emergency department the symptoms have resolved. The patient has experienced similar episodes in the past, multiple times. Historical: - Allergies: 08:57 PENICILLINS; iw - PMHx: 08:57 Congestive heart failure; Diabetes - IDDM; Hyperlipidemia; Hypertension; stage 4 kidney iw failure; - PSHx: 08:57 section; hysterectomy; Thyroid surgery; iw - Infectious Disease History:: Denies. - Social history:: Smoking status: Patient denies any tobacco usage or history of. ROS: 10:33 Constitutional: Negative for fever, chills, and weight loss, Eyes: Negative for injury, kay pain, redness, and discharge, ENT: Negative for injury, pain, and discharge, Neck: Negative for injury, pain, and swelling, Cardiovascular: Negative for chest pain, palpitations, and edema, Back: Negative for injury and pain, : Negative for injury, bleeding, discharge, and swelling, Skin: Negative for injury, rash, and discoloration, Neuro: Negative for headache, weakness, numbness, tingling, and seizure, Psych: Negative for depression, anxiety, suicide ideation, homicidal ideation, and hallucinations, Allergy/Immunology: Negative for hives, rash, and allergies, Endocrine: Negative for neck swelling, polydipsia, polyuria, polyphagia, and marked weight changes, Hematologic/Lymphatic: Negative for swollen nodes, abnormal bleeding, and unusual bruising, 10:33 Respiratory: Positive for shortness of breath, 10:33 Abdomen/GI: Negative for abdominal pain, 10:33 MS/extremity: Positive for pain, swelling, tenderness, of the right leg, Exam: 10:33 Constitutional: This is a well developed, well nourished patient who is awake, alert, kay and in no acute distress. Head/Face: Normocephalic, atraumatic. Eyes: Pupils equal round and reactive to light, extra-ocular motions intact. Lids and lashes normal. Conjunctiva and sclera are non-icteric and not injected. Cornea within normal limits. Periorbital areas with no swelling, redness, or edema. ENT: Nares patent. No nasal discharge, no septal abnormalities noted. Tympanic membranes are normal and external auditory canals are clear. Oropharynx with no redness, swelling, or masses, exudates, or evidence of obstruction, uvula midline. Mucous membranes moist. Neck: Trachea midline, no thyromegaly or masses palpated, and no cervical lymphadenopathy. Supple, full range of motion without nuchal rigidity, or vertebral point tenderness. No Meningismus. Chest/axilla: Normal chest wall appearance and motion. Nontender with no deformity. No lesions are appreciated. Cardiovascular: Regular rate and rhythm with a normal S1 and S2. No gallops, murmurs, or rubs. Normal PMI, no JVD. No pulse deficits. Respiratory: Lungs have equal breath sounds bilaterally, clear to auscultation and percussion. No rales, rhonchi or wheezes noted. No increased work of breathing, no retractions or nasal flaring. Abdomen/GI: Soft, non-tender, with normal bowel sounds. No distension or tympany. No guarding or rebound. No evidence of tenderness throughout. Back: No spinal tenderness. No costovertebral tenderness. Full range of motion. Female : Normal external genitalia. Skin: Warm, dry with normal turgor. Normal color with no rashes, no lesions, and no evidence of cellulitis. Neuro: Awake and alert, GCS 15, oriented to person, place, time, and situation. Cranial nerves II-XII grossly intact. Motor strength 5/5 in all extremities. Sensory grossly intact. Cerebellar exam normal. Normal gait. Psych: Awake, alert, with orientation to person, place and time. Behavior, mood, and affect are within normal limits. 10:33 ECG was reviewed by the Attending Physician. 10:33 Musculoskeletal/extremity: Circulation is intact in all extremities. Sensation intact. Compartment Syndrome exam of affected extremity: is normal. Weight bearing: able to fully bear weight, Vital Signs: 08:55 BP 182 / 93; Pulse 70; Resp 16; Temp 97.6; Pulse Ox 97% on R/A; Weight 112.49 kg; iw Height 5 ft. 2 in. ; Pain 10/10; 11:23 BP 213 / 77; Pulse 63; Resp 15; Pulse Ox 100% on R/A; hb 12:33 BP 185 / 100; Pulse 68; Resp 15; Pulse Ox 98% ; hb 14:10 BP 152 / 92; Pulse 68; Resp 17; Pulse Ox 100% on R/A; hb 08:55 Body Mass Index 45.36 (112.49 kg, 157.48 cm) iw 08:55 Pain Scale: Adult iw MDM: 08:57 Medical Screening Exam initiated kay 10:36 Differential diagnosis: contusion, Anemia asthma, Bronchitis CHF exacerbation, UTI, kay pancreatitis, pulmonary edema, Pulmonary Embolism reactive airway disease, Sepsis. Antibiotic administration: Not indicated. Differential Diagnosis. Immunization status: Pneumococcal vaccine: within last 5 years. Influenza vaccine: within last 5 years. Data reviewed: vital signs, nurses notes, lab test result(s), EKG, radiologic studies, plain films. Consideration of Admission/Observation Escalation of care including admission/observation considered. I considered the following discharge prescriptions or medication management in the emergency department Medications were administered in the Emergency Department. See MAR. Independent interpretation of the following test(s) in the Emergency Department EKG: See my EKG interpretation above. Test considered but Not performed: Ultrasound NO 2 D ECHO. 06/07 09: Order name: Basic Metabolic Panel; Complete Time: 11: [facility] 06/07 09: Order name: CBC with Diff; Complete Time: 11: [facility] 06/07 09:01 Order name: LFT's; Complete Time: 11: [facility] 06/07 09: Order name: Magnesium; Complete Time: 11: [facility] 06/07 09: Order name: NT PRO-BNP; Complete Time: 11: [facility] 06/07 09:01 Order name: PT-INR; Complete Time: 11: [facility] 06/07 09:01 Order name: Troponin HS; Complete Time: 11: [facility] 06/07 09:01 Order name: Lipase; Complete Time: 11:09 kay 06/07 09:01 Order name: UA Rfx Song Cult if indicated; Complete Time: 11:09 kay 06/07 13:07 Order name: Basic Metabolic Panel EDMS 06/07 13:07 Order name: Basic Metabolic Panel EDMS 06/07 13:07 Order name: Basic Metabolic Panel EDMS 06/07 13:07 Order name: Basic Metabolic Panel EDMS 06/07 13:07 Order name: CBC with Automated Diff EDMS 06/07 13:07 Order name: CBC with Automated Diff EDMS 06/07 13:07 Order name: CBC with Automated Diff EDMS 06/07 13:07 Order name: CBC with Automated Diff EDMS 06/07 13:07 Order name: T4 Free EDMS 06/07 13:07 Order name: T4 Free EDMS 06/07 13:07 Order name: Thyroid Stimulating Hormone EDMS 06/07 13:07 Order name: Thyroid Stimulating Hormone EDMS 06/07 13:07 Order name: Troponin High Sensitivity EDMS 06/07 13:07 Order name: Troponin High Sensitivity EDMS 06/07 13:07 Order name: Troponin High Sensitivity EDMS 06/07 09:01 Order name: XRAY Chest (1 view); Complete Time: 10:04 [facility] 06/07 09:01 Order name: CT Chest Abdomen Pelvis W/O Contrast; Complete Time: 10:18 [facility] 06/07 10:20 Order name: US Extremity Venous W Compression Harris; Complete Time: 11:09 06/07 13:19 Order name: Physical Therapy Consult EDOR 06/07 09:01 Order name: Cardiac monitoring; Complete Time: 10:42 [facility] 06/07 09:01 Order name: EKG - Nurse/Tech; Complete Time: 10:17 kay 06/07 09:01 Order name: IV Saline Lock; Complete Time: 10:42 [facility] 06/07 09:01 Order name: Labs collected and sent; Complete Time: 10:42 [facility] 06/07 09:01 Order name: O2 Per Protocol; Complete Time: 10:42 [facility] 06/07 09:01 Order name: O2 Sat Monitoring; Complete Time: 10:42 [facility] EC:33 Rate is 67 beats/min. Rhythm is regular. QRS Adak is Normal. HI interval is normal. QRS kay interval is normal. QT interval is normal. No Q waves. T waves are Normal. No ST changes noted. Clinical impression: Abnormal EKG without significant change. Interpreted by me. Reviewed by me. Administered Medications: 10:49 Drug: fentaNYL (PF) IVP 25 mcg IVP once Route: IVP; Site: right antecubital; hb 10:49 Drug: Ondansetron IVP 4 mg IVP once; over 2 minutes Route: IVP; Site: right antecubital;hb 13:11 Drug: amLODIPine PO 5 mg PO once Route: PO; hb 13:11 Drug: HydrALAZINE PO 50 mg PO once Route: PO; hb 13:13 Drug: Famotidine IVP 20 mg IVP once; dilute with 10 mL 0.9% NaCl; give over 2 minutes hb Route: IVP; Site: right antecubital; 13:13 Drug: cloNIDine PO 0.1 mg PO once Route: PO; hb 13:14 Drug: Aspirin PO Chewable Tablet 162 mg PO once Route: PO; hb Disposition Summary: 06/07/25 11:16 Hospitalization Ordered Notes: Hospitalization Status: Inpatient Admission kay Provider: Paul Manzanares cha Location: Telemetry/MedSurg (Inpatient) kay Condition: Fair kay Problem: new kay Symptoms: have improved kay Bed/Room Type: Standard kay Room Assignment: 216(06/07/25 13:36) iw Diagnosis - Dyspnea kay - Chronic combined systolic (congestive) and diastolic (congestive) heart failure kay - Chronic kidney disease, unspecified kay - Obesity, unspecified kay - Pain in right leg kay - Non ST elevation [place] kay - Presence of cardiac pacemaker kay - Pleural effusion in other conditions classified elsewhere kay - Synovial cyst of popliteal space [Cox], right knee kay - Essential (primary) hypertension kay Forms: - Medication Reconciliation Form kay - SBAR form kay - Leadership Thank You Letter kay Signatures: Dispatcher [employer] Darnell Wolf MD MD cha Williams, Irene, RN RN iw Attema, Lee, SUPERVISOR [employer]-C SUPERVISOR [employer]-Cla1 Carol Babb RN RN hb Corrections: (The following items were deleted from the chart) 09:02 09:02 BASIC METABOLIC PANEL+C.LAB.BRZ ordered. EDMS EDMS 09:02 09:02 CBC+H.LAB.BRZ ordered. EDMS EDMS 09:02 09:02 HEPATIC FUNCTION+C.LAB.BRZ ordered. EDMS EDMS 09:02 09:02 MAGNESIUM+C.LAB.BRZ ordered. EDMS EDMS 09:02 09:02 PROBNP+C.LAB.BRZ ordered. EDMS EDMS 09:02 09:02 PROTIME (+INR)+COAG.LAB.BRZ ordered. EDMS EDMS 09:02 09:02 Troponin High Sensitivity+C.LAB.BRZ ordered. EDMS EDMS 09:02 09:02 LIPASE+C.LAB.BRZ ordered. EDMS EDMS 09:02 09:02 UA Rfx Song Cult if indicated+U.LAB.BRZ ordered. EDMS EDMS 09:02 09:02 Chest Single View+RAD.RAD.BRZ ordered. EDMS EDMS 09:02 09:02 Chest Abdomen Pelvis Wo Con+CT.RAD.BRZ ordered. EDMS EDMS 13:36 11:16 kay iw
--- NOTE | 2025-06-07 11:17 | ER ---
Nurse's Notes [facility] Name: Caprice Preciado Age: 64 yrs Sex: Female : 1960 Arrival Date: 06/07/2025 Time: 08:45 Bed 18 Private MD: Diagnosis: Dyspnea;Chronic combined systolic (congestive) and diastolic (congestive) heart failure;Chronic kidney disease, unspecified;Obesity, unspecified;Pain in right leg;Non ST elevation AR;Presence of cardiac pacemaker;Pleural effusion in other conditions classified elsewhere;Synovial cyst of popliteal space [Cox], right knee;Essential (primary) hypertension Presentation: 06/07 08:55 Chief complaint: Patient states: pain in my kidney area when I walk and SOB , swelling iw in my legs, my right leg has issues with circulation, started 3 days ago. Coronavirus screen: At this time, the client does not indicate any symptoms associated with coronavirus-19. Ebola Screen: No symptoms or risks identified at this time. Initial Sepsis Screen: Does the patient meet any 2 criteria? No. Patient's initial sepsis screen is negative. Does the patient have a suspected source of infection? No. Patient's initial sepsis screen is negative. Risk Assessment: Do you want to hurt yourself or someone else? Patient reports no desire to harm self or others. Onset of symptoms was June 04, 2025. 08:55 Method Of Arrival: Wheelchair iw 08:55 Acuity: HERLINDA 3 iw Historical: - Allergies: 08:57 PENICILLINS; iw - PMHx: 08:57 Congestive heart failure; Diabetes - IDDM; Hyperlipidemia; Hypertension; stage 4 kidney iw failure; - PSHx: 08:57 section; hysterectomy; Thyroid surgery; iw - Infectious Disease History:: Denies. - Social history:: Smoking status: Patient denies any tobacco usage or history of. Screenin:25 [facility] ED Fall Risk Assessment (Adult) History of falling in the last 3 months, hb including since admission No falls in past 3 months (0 pts) Confusion or Disorientation No (0 pts) Intoxicated or Sedated No (0 pts) Impaired Gait No (0 pts) Mobility Assist Device Used No (0 pt) Altered Elimination No (0 pt) Score/Fall Risk Level 0 - 2 = Low Risk Oriented to surroundings, Maintained a safe environment, Educated pt \T\ family on fall prevention, incl call for assistance when getting out of bed. Abuse screen: Denies threats or abuse. Denies injuries from another. Nutritional screening: No deficits noted. Tuberculosis screening: No symptoms or risk factors identified. Assessment: 10:30 General: Appears in no apparent distress. uncomfortable, Behavior is calm, cooperative. hb Pain: Pain currently is 8 out of 10 on a pain scale. Neuro: Level of Consciousness is awake, alert, obeys commands, Oriented to person, place, time, situation. Cardiovascular: Patient's skin is warm and dry. Rhythm is regular. Respiratory: Airway is patent Respiratory effort is even, unlabored, Respiratory pattern is regular, symmetrical. GI: No signs and/or symptoms were reported involving the gastrointestinal system. : Reports RIGHT FLANK PAIN. EENT: No signs and/or symptoms were reported regarding the EENT system. Derm: Skin is pink, warm \T\ dry. Musculoskeletal: Reports RIGHT FLANK PAIN, RT LEG PAIN, BLE SWELLING. 11:22 Reassessment: Patient appears in no apparent distress at this time. Patient and/or hb family updated on plan of care and expected duration. Pain level reassessed. Patient is alert, oriented x 3, equal unlabored respirations, skin warm/dry/pink. 12:30 Reassessment: Patient appears in no apparent distress at this time. Patient and/or hb family updated on plan of care and expected duration. Pain level reassessed. Patient is alert, oriented x 3, equal unlabored respirations, skin warm/dry/pink. 13:30 Reassessment: Patient and/or family updated on plan of care and expected duration. Pain hb level reassessed. Patient is alert, oriented x 3, equal unlabored respirations, skin warm/dry/pink. 14:12 Reassessment: Patient appears in no apparent distress at this time. Patient and/or hb family updated on plan of care and expected duration. Pain level reassessed. Patient is alert, oriented x 3, equal unlabored respirations, skin warm/dry/pink. Vital Signs: 08:55 BP 182 / 93; Pulse 70; Resp 16; Temp 97.6; Pulse Ox 97% on R/A; Weight 112.49 kg; iw Height 5 ft. 2 in. ; Pain 10/10; 11:23 BP 213 / 77; Pulse 63; Resp 15; Pulse Ox 100% on R/A; hb 12:33 BP 185 / 100; Pulse 68; Resp 15; Pulse Ox 98% ; hb 14:10 BP 152 / 92; Pulse 68; Resp 17; Pulse Ox 100% on R/A; hb 08:55 Body Mass Index 45.36 (112.49 kg, 157.48 cm) iw 08:55 Pain Scale: Adult iw ED Course: 08:50 Patient arrived in ED. [email or web address] 08:56 Darnell Kay MD is Attending Physician. kay 08:57 Triage completed. iw 08:57 Arm band placed on. iw 09:46 CT Chest Abdomen Pelvis W/O Contrast In Process Unspecified. EDMS 09:49 XRAY Chest (1 view) In Process Unspecified. EDMS 10:17 EKG done, by ED staff, reviewed by Darnell Kay MD. em1 10:25 Accessed peripheral vein via ultrasound, utilizing dynamic ultrasound technique using hb per hospital protocol. Clean \T\ dry. Dressing intact. Good blood return. Flushes easily. 10:52 Patient has correct armband on for positive identification. Provided Education on: hb TESTS, RESULT TIMES, MEDICATIONS. 10:53 US Extremity Venous W Compression Harris In Process Unspecified. EDMS 11:14 Paul Manzanares is Hospitalizing Provider. kay 14:10 Carol Babb, RN is Primary Nurse. hb 14:13 No provider procedures requiring assistance completed. Patient admitted, IV remains in hb place. Administered Medications: 10:49 Drug: fentaNYL (PF) IVP 25 mcg IVP once Route: IVP; Site: right antecubital; hb 10:49 Drug: Ondansetron IVP 4 mg IVP once; over 2 minutes Route: IVP; Site: right antecubital;hb 13:11 Drug: amLODIPine PO 5 mg PO once Route: PO; hb 13:11 Drug: HydrALAZINE PO 50 mg PO once Route: PO; hb 13:13 Drug: Famotidine IVP 20 mg IVP once; dilute with 10 mL 0.9% NaCl; give over 2 minutes hb Route: IVP; Site: right antecubital; 13:13 Drug: cloNIDine PO 0.1 mg PO once Route: PO; hb 13:14 Drug: Aspirin PO Chewable Tablet 162 mg PO once Route: PO; hb Medication: 10:52 VIS not applicable for this client. hb Outcome: 11:16 Decision to Hospitalize by Provider. kay 15:26 Patient left the ED. iw Signatures: Dispatcher [employer] Darnell Wolf MD MD cha Williams, Irene, RN Elkin Reyes em1 Carol Babb RN RN Vaishali Medrano [email or web address]
[2025-06-07] MEDS ORDERED: ACETAMINOPHEN 325 MG TABLET PO PRN (13:02)
[2025-06-07] MEDS ORDERED: FAMOTIDINE 20 MG/2 ML VIAL IV ONE (13:02)
[2025-06-07] MEDS ORDERED: AMLODIPINE 5 MG TAB ONE (13:02)
[2025-06-07] MEDS ORDERED: HYDRALAZINE HCL 25 MG TABLET ONE (13:02)
[2025-06-07] MEDS ORDERED: ONDANSETRON 4 MG/2 ML VIAL IV PRN (13:02)
[2025-06-07] MEDS ORDERED: ASPIRIN 81 MG CHEWABLE TABLET ONE (13:03)
--- NOTE | 2025-06-07 13:20 | P.HP ---
Certification for Inpatient Patient admitted to: Inpatient Patient will require the following post-hospital care: None Practitioner: I am a practitioner with admitting privileges, knowledge of patient current condition, hospital course, and medical plan of care. 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 Patient reports her symptoms been going on for around 3 days now. She was evaluated in the emergency department her labs were significant for a creatinine near her baseline 2.79 GFR of 18 BUN of 41 potassium 4.0 initial high sensitive troponin of 67.9 BNP of [address] of the chest abdomen pelvis without contrast performed which showed a trace right pleural effusion with no other acute findings. Numerous bilateral renal cortical rounded and ovoid lesions of various densities which could represent cystic lesions some with hemorrhagic change. Given some interval changes in size of the dominant cystic components particular on the left this would benefit from follow-up renal mass protocol CT or MRI if indicated. Additionally a venous Doppler of both lower extremities was performed which revealed a right Cox's cyst at 3.4 x 1.2 x 1.9 cm. Patient blood pressure is markedly elevated around 220 systolic as well, ED prior wishes to admit interpretation for CHF exacerbation, elevated troponin, lower extremity pain. Allergies Penicillins Allergy (Unknown, Verified 03/30/23 20:16) Itching, [place] Home Medications: Rosuvastatin [Crestor*] 2 tab PO BEDTIME 12/29/20 Albuterol Inhaler [Ventolin Inhaler*] 2 puff IH Q6H PRN 02/17/23 Gabapentin 300 mg PO BID 02/17/23 Insulin Detemir [Levemir Flexpen] 45 unit SQ BEDTIME 02/17/23 Hydralazine HCl 50 mg PO TID #90 tab 02/18/23 Levothyroxine [Synthroid*] 100 mcg PO [id number] 02/23/23 cloNIDine HCL [Catapres*] 0.1 mg PO Q8H PRN #30 tab 02/26/23 Amlodipine [Norvasc*] 5 mg PO BID 03/30/23 metOLazone [Zaroxolyn*] 5 mg PO M,W,F #14 tab 04/02/23 Bumetanide 2 mg PO BID #120 tab 04/03/23 Spironolactone [Aldactone*] 25 mg PO BIDL #60 tab 04/03/23 atenoloL [Tenormin*] 25 mg PO BEDTIME #30 tab 04/03/23 - Past Medical/Surgical History Diabetic: Yes -: DM 2 -: Morbid obesity -: Hypothyroidism -: HLD -: MAX on CPAP. -: CKD III/IV with Proteinuria (Dr. Granados) -: HTN -: Chronic diastolic congestive heart failure -: hysterectomy -: thyroid sx -: csection Psychosocial/ Personal History: Patient lives at home with family - Social History Alcohol use: No CD- Drugs: No Caffeine use: No Place of Residence: Home Review of Systems 10-point ROS is otherwise unremarkable Respiratory: Shortness of Breath Cardiovascular: Edema Musculoskeletal: Leg Pain Physical Examination - Physical Exam General: Alert, In no apparent distress, Oriented x3 HEENT: Atraumatic, PERRLA, Mucous membr. moist/pink Neck: Supple, 2+ carotid pulse no bruit, No LAD Respiratory: Clear to auscultation bilaterally, Normal air movement Cardiovascular: Regular rate/rhythm, Normal S1 S2 Gastrointestinal: Normal bowel sounds, No tenderness Musculoskeletal: No tenderness Integumentary: No rashes Neurological: Normal gait, Normal speech, Normal strength at 5/5 x4 extr - Studies Laboratory Data (last 24 hrs) 06/07/25 06/07/25 06/07/25 10:25 10:25 10:25 WBC 8.90 Hgb 10.8 L Hct 34.4 L Plt Count 177 PT 12.6 INR 1.12 Sodium 140 Potassium 4.0 BUN 41 H Creatinine 2.79 H Glucose 109 H Magnesium 2.0 Total Bilirubin 0.3 AST 22 ALT 38 Alkaline Phosphatase 95 Lipase 41 Assessment and Plan - Plan Assessment: Acute on chronic diastolic congestive heart failure Elevated troponin CKD 4 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 Hypertension Hyperlipidemia MAX on CPAP at night Plan: Acute on chronic diastolic congestive heart failure Elevated troponin Diuresis with IV Lasix Trend troponin and monitor on telemetry Cardiology consultation CKD 4 Consult nephrology Monitor renal function closely while diuresing Right Cox's cyst As needed pain medications PT consult Diabetes mellitus type 2insulin-dependent ACHS Accu-Chek, sign scale insulin Hypertension Hyperlipidemia Continue home medications MAX on CPAP at night DVT PPX: Heparin subcu Code status: Full code Discharge Plan: Home Plan to discharge in: 48 Hours - Advance Directives Does patient have a Living Will: No Does patient have a Durable POA for Healthcare: Yes - Code Status/Comfort Care Code Status Assessed: Yes (Full code) Critical Care: No Time Spent Managing Pts Care (In Minutes): 70
[2025-06-07] MEDS: INSULIN REGULAR (HUMAN) 100 UNIT/ML SQ SCH (16:04)
[2025-06-07] MEDS: FUROSEMIDE 40 MG/4 ML VIAL IV SCH (16:27)
[2025-06-07 17:43] VITALS: BMI 43.9
[2025-06-07 18:02] VITALS: O2SAT 100
[2025-06-07] MEDS: HEPARIN 5000 UNIT/ML 1 ML VIAL SQ SCH (21:08)
[2025-06-07] MEDS: HYDRALAZINE HCL 25 MG TABLET PO SCH (21:08)
[2025-06-07] MEDS: TRAMADOL HCL 50 MG TAB PO PRN (21:29)
[2025-06-08 07:39] LABS: Anion Gap 8.7 mEq/L (5.0-15.0); BUN Blood Urea Nitrogen 47.0 mg/dL (7-18); Glucose Level 103.0 mg/dL (74-106); Potassium 4.7 mEq/L (3.5-5.1); Thyroid Stimulating Hormone 0.132 uIU/mL (0.358-3.740); Troponin High Sensitivity 49.3 pg/mL (<58.9)
[2025-06-08 08:24] LABS: Absolute Lymphocytes (CBC) 1.4 K/uL (0.7-4.9); Hematocrit 33.2 % (36.0-45.0); Hemoglobin 10.7 g/dL (12.0-15.0); MCH 28.4 pg (27.0-35.0); MCHC 32.2 g/dL (32.0-36.0); MCV 88.2 fL (80-100); MPV 9.5 fL (7.6-11.3); Nucleated RBC Absolute Count 0.0 (0-0); Nucleated Red Blood Cells % 0.1 % (0-0); RBC Red Blood Cell Count 3.77 M/uL (3.86-4.86); White Blood Count 7.10 thou/uL (4.3-10.9)
[2025-06-08] MEDS ORDERED: HOME MED 1 EA UNK (Hydralazine Hcl [Hydralazine Hcl] 50 MG Tablet) PO SCH (09:00)
[2025-06-08] MEDS ORDERED: AMLODIPINE 5 MG TAB PO SCH (09:00)
[2025-06-08] MEDS: NEBIVOLOL HCL 5 MG TAB PO SCH (09:20)
[2025-06-08] MEDS: AMLODIPINE 5 MG TAB PO SCH (09:20)
--- NOTE | 2025-06-08 10:47 | P.CNS ---
Date of Consult: 06/08/25 Chief Complaint: CHF exacerbation History of Present Illness: Patient with PMH of diastolic heart failure, presented with worsening lower extremities edema and back pain, troponin was mild elevated, today she feel much better after recieving IV Lasix and back to baseline, denies chest pain, no palpitations, no syncope. Allergies Penicillins Allergy (Unknown, Verified 03/30/23 20:16) Itching, [place]helps Home medications list reviewed: Yes Home Medications: Rosuvastatin [Crestor*] 2 tab PO BEDTIME 12/29/20 Albuterol Inhaler [Ventolin Inhaler*] 2 puff IH Q6H PRN 02/17/23 Gabapentin 300 mg PO BID 02/17/23 Hydralazine HCl 50 mg PO TID #90 tab 02/18/23 Levothyroxine [Synthroid*] 100 mcg PO [id number] 02/23/23 cloNIDine HCL [Catapres*] 0.1 mg PO Q8H PRN #30 tab 02/26/23 Amlodipine [Norvasc*] 5 mg PO BID 03/30/23 Bumetanide 2 mg PO BID #120 tab 04/03/23 Dapagliflozin Propanediol [Farxiga] 1 tab PO DAILY 06/08/25 - Past Medical/Surgical History Diabetic: Yes -: DM 2 -: Morbid obesity -: Hypothyroidism -: HLD -: MAX on CPAP. -: CKD III/IV with Proteinuria (Dr. Granados) -: HTN -: Chronic diastolic congestive heart failure -: hysterectomy -: thyroid sx -: csection Psychosocial/ Personal History: Patient lives at home with family - Social History Alcohol use: No CD- Drugs: No Caffeine use: No Place of Residence: Home Review of Systems 10-point ROS is otherwise unremarkable Physical Examination Temp Pulse Resp BP Pulse Ox 97.6 F 69 18 185/75 H 90 L 06/08/25 08:00 06/08/25 08:00 06/08/25 08:00 06/08/25 08:00 06/08/25 08:00 General: Alert, In no apparent distress HEENT: Atraumatic, PERRLA, Mucous membr. moist/pink, EOMI, Sclerae nonicteric Neck: Supple, 2+ carotid pulse no bruit, No LAD, Without JVD or thyroid abnormality Respiratory: Clear to auscultation bilaterally, Normal air movement Cardiovascular: Regular rate/rhythm, Normal S1 S2 Gastrointestinal: Normal bowel sounds, No tenderness Musculoskeletal: No tenderness Integumentary: No rashes Neurological: Normal gait, Normal speech, Normal tone, Normal affect Lymphatics: No axilla or inguinal lymphadenopathy Laboratory Data (last 24 hrs) 06/07/25 06/07/25 06/07/25 10:25 10:25 10:25 WBC 8.90 Hgb 10.8 L Hct 34.4 L Plt Count 177 PT 12.6 INR 1.12 Sodium 140 Potassium 4.0 BUN 41 H Creatinine 2.79 H Glucose 109 H Magnesium 2.0 Total Bilirubin 0.3 AST 22 ALT 38 Alkaline Phosphatase 95 Lipase 41 - Problems (1) (HFpEF) heart failure with preserved ejection fraction Current Visit: No Status: Acute Plan: patient with mild acute excerbation, feel better after IV lasix resume her home dose Bumex 2 mg po BID Continue Nebivolol continue [facility] patient to 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 (2) Hypertension Current Visit: No Status: Acute Plan: continue her current medications.
[2025-06-08 12:16] VITALS: BP 169/72; TEMP 97.7
--- NOTE | 2025-06-08 12:19 | P.DS ---
Admission Date: 06/07/25 Discharge Date: 06/08/25 Disposition: ROUTINE DISCHARGE Discharge Condition: GOOD Reason for Admission: CHF exacerbation Brief History of Present Illness: 64-year-old female with history of chronic diastolic congestive heart failure, CKD 4, insulin-dependent diabetes, hypertension, hyperlipidemia, previous third- degree block now with pacemaker in place presents to the emergency department chief complaint of shortness of breath, lower extremity swelling, right lower extremity pain, flank pain. Patient reports her symptoms been going on for around 3 days now. She was evaluated in the emergency department her labs were significant for a creatinine near her baseline 2.79 GFR of 18 BUN of 41 potassium 4.0 initial high sensitive troponin of 67.9 BNP of [address] of the chest abdomen pelvis without contrast performed which showed a trace right pleural effusion with no other acute findings. Numerous bilateral renal cortical rounded and ovoid lesions of various densities which could represent cystic lesions some with hemorrhagic change. Given some interval changes in size of the dominant cystic components particular on the left this would benefit from follow-up renal mass protocol CT or MRI if indicated. Additionally a venous Doppler of both lower extremities was performed which revealed a right Cox's cyst at 3.4 x 1.2 x 1.9 cm. Patient blood pressure is markedly elevated around 220 systolic as well, ED prior wishes to admit interpretation for CHF exacerbation, elevated troponin, lower extremity pain. 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 She was diuresed with IV Lasix and had improvement in her symptoms. Troponins trended flat, she is seen by cardiology recommends continuation of her Bumex and outpatient follow-up with her machine egg washer and nephrology outpatient. During her hospitalization she did have an ultrasound of bilateral lower extremities which was negative for DVT, she does have a right Cox's cyst. She is counseled on utilization of Tylenol rather than NSAIDs given her renal dysfun ction. She may follow-up with Ortho outpatient as needed. Continue your home medications, follow-up with cardiology and nephrology in 1 week Vital Signs/Physical Exam: Temp Pulse Resp BP Pulse Ox 97.7 F 68 18 169/72 H 92 06/08/25 12:00 06/08/25 12:00 06/08/25 12:00 06/08/25 12:00 06/08/25 12:00 General: Alert, In no apparent distress, Oriented x3 HEENT: Atraumatic, PERRLA Neck: Supple, JVD not distended Respiratory: Clear to auscultation bilaterally, Normal air movement Cardiovascular: Regular rate/rhythm, Normal S1 S2 Gastrointestinal: Normal bowel sounds, No tenderness Musculoskeletal: No tenderness Integumentary: No rashes Neurological: Normal speech, Normal tone Laboratory Data at Discharge: WBC 7.10 thou/uL (4.3-10.9) 06/08/25 08:03 Hgb 10.7 g/dL (12.0-15.0) L 06/08/25 08:03 Hct 33.2 % (36.0-45.0) L 06/08/25 08:03 Plt Count 166 thou/uL (152-406) 06/08/25 08:03 PT 12.6 SECONDS (10-13.0) 06/07/25 10:25 INR 1.12 06/07/25 10:25 Sodium 140 mEq/L (136-145) 06/08/25 06:57 Potassium 4.7 mEq/L (3.5-5.1) D 06/08/25 06:57 BUN 47 mg/dL (7-18) H 06/08/25 06:57 Creatinine 3.01 mg/dL (0.55-1.02) H 06/08/25 06:57 Glucose 103 mg/dL (74-106) 06/08/25 06:57 Magnesium 2.0 mg/dL (1.6-2.4) 06/07/25 10:25 Total Bilirubin 0.3 mg/dL (0.2-1.0) 06/07/25 10:25 AST 22 U/L (15-37) 06/07/25 10:25 ALT 38 U/L (13-56) 06/07/25 10:25 Alkaline Phosphatase 95 U/L (45-117) 06/07/25 10:25 Lipase 41 U/L (13-75) 06/07/25 10:25 Home Medications: Rosuvastatin [Crestor*] 2 tab PO BEDTIME 12/29/20 Albuterol Inhaler [Ventolin Inhaler*] 2 puff IH Q6H PRN 02/17/23 Gabapentin 300 mg PO BID 02/17/23 Hydralazine HCl 50 mg PO TID #90 tab 02/18/23 Levothyroxine [Synthroid*] 100 mcg PO [id number] 02/23/23 cloNIDine HCL [Catapres*] 0.1 mg PO Q8H PRN #30 tab 02/26/23 Amlodipine [Norvasc*] 5 mg PO BID 03/30/23 Bumetanide 2 mg PO BID #120 tab 04/03/23 Dapagliflozin Propanediol [Farxiga] 1 tab PO DAILY 06/08/25 Physician Discharge Instructions: Patient was admitted to the hospital for volume overload, CHF, shortness of breath and lower extremity edema. She was diuresed with IV Lasix and had improvement in her symptoms. Troponins trended flat, she is seen by cardiology recommends continuation of her Bumex and outpatient follow-up with her machine egg washer and nephrology outpatient. During her hospitalization she did have an ultrasound of bilateral lower extremities which was negative for DVT, she does have a right Cox's cyst. She is counseled on utilization of Tylenol rather than NSAIDs given her renal dysfunction. She may follow-up with Ortho outpatient as needed. Continue your home medications, follow-up with cardiology and nephrology in 1 week Diet: Renal Activity: Ad itz Followup: NONE,NONE [Primary Care Provider] - 1-2 Weeks Time spent managing pt's care (in minutes): 38
== END 2025-06-08 13:53 | disposition home or self-care (01) ==
LOC: ER 08:45 → 2ND 13:01
PROVIDERS: ADMIT Internal Medicine; ATTEND Internal Medicine
DX: I50.33 Acute on chronic diastolic (congestive) heart failure (principal); E11.22 Type 2 diabetes mellitus with diabetic chronic kidney disease; I12.9 Hypertensive chronic kidney disease with stage 1 through stage 4 chronic kidney disease, or unspecified chronic kidney disease; N18.4 Chronic kidney disease, stage 4 (severe); E78.5 Hyperlipidemia, unspecified; R06.02 Shortness of breath; M79.661 Pain in right lower leg; J90 Pleural effusion, not elsewhere classified; E66.01 Morbid (severe) obesity due to excess calories; G47.33 Obstructive sleep apnea (adult) (pediatric); R79.89 Other specified abnormal findings of blood chemistry; M71.21 Synovial cyst of popliteal space [Baker], right knee; M54.9 Dorsalgia, unspecified; R60.9 Edema, unspecified; Z88.0 Allergy status to penicillin; Z95.0 Presence of cardiac pacemaker
CPT/HCPCS: 93005; 85025 ×2; 81001; 80048 ×2; 36415; 83735; 85610; 82947 ×4; 80076; 84443; 84484 ×3; 84439; 83690; 83880; 71250; 74176; 71045; 93970; 97161; 96375; 96374; 99284; J1644 ×2; J1938 ×2; J3010; J2405; J1815; G0378 ×3